=== PATIENT | male | born 1950 | race Caucasian/White ===

== ENCOUNTER → 2016-07-15 | Outpatient (CLI) | payer MEDICARE, BC, OTHER ==
[~2016-07-15] MED LIST: ALPR0.5T3 PO; ASPI1TAB PO; CEFD1CAP8 PO; CRES20TA PO; DILT180C53 PO; FLOM5CAP PO; FURO40TA2 PO; GLYB5TAB5 PO; HYDR12.55 PO; INSULANT SC; JANU100T PO; LASI40TA PO; LISI5TAB PO; METF1000 PO; NASA0.057; NITR4TASL SL; OMEP20CA3 PO; OMEP20TA PO; PROZ20CA11 PO; TAMS0.4C PO; TELM1TAB12 PO; TEST100I IM; VITA-130 PO; VITMTA PO; ZOCO20TA PO; [UNRECOGNIZED DRUG - CODE] IM
[2016-07-15 08:32] LABS: MEAN CORPUSCULAR HEMOGLOBIN 32.1 pg (27.0-33.0); MEAN CORPUSCULAR HGB CONC 33.7 g/dl (32.0-36.5); MEAN CORPUSCULAR VOLUME 95.4 fl (80.0-96.0); RED CELL DISTRIBUTION WIDTH 12.3 % (11.5-14.5); WHITE BLOOD COUNT 6.5 K/mm3 (4.0-10.0)
[2016-07-15 09:01] LABS: ALBUMIN 3.5 GM/DL (3.2-5.2); ALBUMIN/GLOBULIN RATIO 1.09 (1.00-1.93); BILIRUBIN,DIRECT 0.1 MG/DL (0.0-0.2); BILIRUBIN,TOTAL 0.3 MG/DL (0.2-1.0); TOTAL PROTEIN 6.7 GM/DL (6.4-8.2)
== END ==
LOC: M LAB 07:50
PROVIDERS: ATTEND Physician Assistant
DX: E78.00 Pure hypercholesterolemia, unspecified (principal); D64.9 Anemia, unspecified

== ENCOUNTER 2016-07-30 13:31 | Inpatient (IN) | payer MEDICARE, BC, OTHER ==
[~2016-07-30] VITALS: Ht 172.7 cm; Wt 97.6 kg
[2016-07-30 14:52] LABS: MEAN CORPUSCULAR HEMOGLOBIN 31.9 pg (27.0-33.0); MEAN CORPUSCULAR HGB CONC 33.3 g/dl (32.0-36.5); MEAN CORPUSCULAR VOLUME 95.9 fl (80.0-96.0); RED CELL DISTRIBUTION WIDTH 12.7 % (11.5-14.5); WHITE BLOOD COUNT 3.3 K/mm3 (4.0-10.0)
[2016-07-30 15:26] LABS: ALBUMIN 3.5 GM/DL (3.2-5.2); ALKALINE PHOSPHATASE 85 U/L (45-117); ALT/SGPT 48 U/L (12-78); ANION GAP 8 MEQ/L (8-16); AST/SGOT 47 U/L (15-37); BILIRUBIN,DIRECT 0.1 MG/DL (0.0-0.2); BILIRUBIN,TOTAL 0.4 MG/DL (0.2-1.0); BLOOD UREA NITROGEN 31 MG/DL (7-18); CALCIUM LEVEL 8.8 MG/DL (8.8-10.2); CARBON DIOXIDE LEVEL 28 MEQ/L (21-32); CHLORIDE LEVEL 104 MEQ/L (98-107); CREATININE FOR GFR 1.28 MG/DL (0.70-1.30); GLOMERULAR FILTRATION RATE 59.9 (>49); GLUCOSE, FASTING 127 MG/DL (80-110); POTASSIUM SERUM 4.8 MEQ/L (3.5-5.1); SODIUM LEVEL 140 MEQ/L (136-145)
--- NOTE | 2016-07-30 15:26 | REP ---
CT HEAD WITHOUT CONTRAST: HISTORY: Altered mental status. COMPARISON: 10/15/2014 Areas of decreased attenuation are present in the periventricular white matter. This represents small vessel ischemic disease. There is no intraparenchymal hemorrhage, mass or midline shift. The ventricular system and cortical sulci are dilated consistent with mild volume loss. There is no extracerebral collection. The visualized sinuses are clear. IMPRESSION: 1. Small vessel ischemic disease. 2. Mild volume loss. Signed by Hank Demarco MD 07/30/2016 03:28 P
[2016-07-30 16:55] LABS: AMPHETAMINES LEVEL URINE NEGATIVE (NEGATIVE); BENZODIAZEPINES URINE NEGATIVE (NEGATIVE); COCAINE METABOLITE URINE NEGATIVE (NEGATIVE); CONTROL LINE INT CTR LINE PRESENT; METHADONE URINE NEGATIVE (NEGATIVE); OPIATES URINE NEGATIVE (NEGATIVE); TRICYCLIC ANTIDEPRESS URINE NEGATIVE (NEGATIVE)
[2016-07-30] MEDS ORDERED: ALPR0.5T3 PO (17:57)
--- NOTE | 2016-07-30 18:16 | EDDOCDS ---
Nurse's Notes [facility] Name: Hank Vilchis Age: 66 yrs Sex: Male : 1950 Arrival Date: 07/30/2016 Time: 13:[address] MD: Tena Hamilton Diagnosis: Major depressive disorder, recurrent, moderate Presentation: 07/30 13:40 Presenting complaint: states: Increase in dizziness, anxiety, ''antisocial'', dwg symptoms since September of 2015. Denies feeling suicidal. Adult Sepsis Screening: The patient does not have new or worsening altered mentation. Patient's respiratory rate is less than 22. Systolic blood pressure is greater than 100. Patient has a qSOFA score of 0- Negative Sepsis Screen. Suicide/Homicide risk assessment- the patient denies having any suicidal and/or homicidal ideations and does not present with any other emotional, behavioral or mental health complaints. Status: Patient is not a health service coordinator or dependent. Transition of care: patient was not received from another setting of care. 13:40 Acuity: HILDA Level 3 dw 13:40 Method Of Arrival: Wheelchair dw 13:52 Presenting complaint: states: Increase in anxiety, sleeping more, more angry. [facility] Triage Assessment: 13:49 General: Appears in no apparent distress, Behavior is cooperative. Pain: Denies pain. [facility] Historical: - Allergies: no known allergies; - Home Meds: 1. Lantus 100 unit/mL Sub-Q crtg 26 unit daily (Last dose: 07/30/2016 07:00) 2. Flomax 0.4 mg Oral cp24 1 cap once daily (Last dose: 07/29/2016 20:00) 3. Crestor 20 mg Oral tab 1 tab once daily (Last dose: 07/29/2016 20:00) 4. Januvia 100 mg oral tab 1 tab once daily (Last dose: 07/30/2016 08:00) 5. furosemide 40 mg Oral tab 1 tab once daily (Last dose: 07/30/2016 08:00) 6. Prozac 20 mg Oral cap 1 cap once daily (Last dose: 07/30/2016 08:00) 7. Xanax 0.25 mg oral tab 1 tab bid (Last dose: 07/30/2016 08:00) 8. omeprazole 20 mg Oral cpDR 1 cap once daily (Last dose: 07/30/2016 08:00) 9. multivitamin Oral cap 1 tab daily (Last dose: 07/30/2016 08:00) 10. Vitamin C 500 mg Oral chew daily (Last dose: 07/30/2016 08:00) 11. 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 No barriers to communication noted, The patient speaks fluent Telugu. - Family history: Not pertinent. - : The pt / caregiver states he / she is not on anticoagulants. Home medication list is obtained from family members. - Exposure Risk Screening:: None identified. Screenin:28 Screening information is obtained from the patient. Fall risk: No risks identified. kr3 Assistance ADL's: requires no assistance with activities of daily living. Abuse/DV Screen: The patient / caregiver reports he/she is: not in a situation that causes fear, pain or injury. Nutritional screening: On diabetic diet. home support is adequate. 18:01 Advance Directives: There is no active DNR order. ld5 Assessment: 14:00 General: Direct to room 10, report given to Jasmin Fontaine RN.. [facility] 14:07 Reassessment: Patient appears in no apparent distress at this time. Patient denies pain kr3 at this time. Reassessment: reports feeling frustrated because he is not getting better. Reports being on Prozac for over 2 1/2 months which hasn't improved his depression. Neurological: Reports dizziness this AM but none at this time. . Respiratory: Respiratory effort is even, unlabored. Derm: Skin is normal. 14:44 Reassessment: orthostatic vital signs obtained with no reports of dizziness or feeling kr3 light headed. 15:30 Reassessment: Patient appears in no apparent distress at this time. Patient denies pain kr3 at this time. family at bedside. 16:28 Reassessment: patient talking with ADAMA barrow, family in room. kr3 17:32 General: Pt sitting up in bed. No apparent distress. Family members in visiting with ld5 pt. Aware of plan for admission to [facility]. Pt denies any needs at this time. Will continue to monitor. 18:00 General: Appears in no apparent distress, Behavior is cooperative, pleasant. Pain: ld5 Quality of pain is described as chronic, pt denies any acute pain. Respiratory: Airway is patent Respiratory effort is even, unlabored. Mental Health Eval: 16:38 Mental health consult is initiated at 15:30. Status: The patient is not a health service coordinator or dependent. [facility] Behavioral Health: The patient is not an established patient of [facility] Behavioral Health. Referral Information: Evaluation referral is generated by a relative; spouse, The patient was referred for evaluation because Pt presented to ED with symptoms of "shaky", "dizzy", and having a panic attack. and Adult children at bedside. Family reported increased anxiety, depressed for the last year. Pt denies SI/HI but reported feeling useless and has no purpose. . 17:00 Referral Information: The patient was referred for evaluation because According to rb Family, Pt worries about EVERYTHING, focuses on what he can't do then gets angry. "The fear of everything has overtaken him" per family. Family reported Pt used to be very social, [id number], people called him "happy daniele", and he talked all the time. 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 Pt will sleep for 16 hours straight according to his , but wake up still tired. Pt stated is aware of his declining in health, is frustrated he cannot do the things he used to do, including the ease of putting on his socks. Pt becomes very anxious especially in a car or when it snows. . Subjective: The patients chief complaint is Depressed, ??SI, panic attacks, constant anxiety. Delusions are denied. Patient's mood is anxious, dysphoric, hopeless, irritable, Hallucinations are denied. Mental Health history: no relevant mental health problems or treatments. Mental Health Admissions: None. Current Outpatient Mental Health Services: None. Current living environment is The patient currently lives with his / her spouse, ,. The patient is . Patient presents to Emergency Department with the following symptoms within the past 2 weeks: agitation, antisocial behavior, anxiety, decreased appetite, depressed mood, feelings of helplessness/hopelessness, panic attacks, sleep disturbance - excessive sleeping, suicidal ideation with no plan, weight loss of 20 pounds. Substance abuse: Pt denies. Mental status exam: Patients appearance is appropriate, Patient's behavior is cooperative, Speech is slow. Affect is labile. Mood is anxious. dysphoric. irritable. Hallucinations are denied. Appetite is erratic Memory is good. Energy level is lethargic. Content of thought is depressive. , Thought process is characterized by flight of ideas. Fear of everything has over taken him according to Family, constantly worries about everything. Cognitive level is oriented to person, place, time and situation Patient's insight is fair. Judgement is fair. Rapport with interviewer is good. Suicidal Ideation is denied. Homicidal ideation is not present. Disposition: Medically cleared for disposition by Nichole Giles MD Psychiatric Consult is performed by phone with Dr Karlo Blanco MD. [facility] Admission Criteria: The patient is experiencing suicidal ideation. The patient displays symptoms of severe psychiatric disorder resulting in disordered behavior and significant interference with his / her ability to maintain self care. Severe Anxiety. Psychomotor Retardation. The patient requires continuous observation and/or control to protect self, others or property. The patient requires administration and monitoring of psychoactive medications by skilled medical providers due to the side effects of the psychoactive medications or significant dosage adjustments. Legal Status: Patient's legal status will be Emergency admission: . [place] Safe Act: [place] Safe Act is applicable to this patient. The patient poses a risk to self or other and the Nursing Health Practice Manager has been notified. He/She will enter the patient's data. 17:26 DSM-V Differential Diagnosis: Unspecified Depressive Disorder (F32.9). Narrative: Pt rb uses a walker and wears his slip on shoes for stability. Family is very supportive. Pt states preferred pharmacy is: [facility], [facility] on [address], and [facility] on [address] Awaiting: transfer to [facility]. Vital Signs: 13:34 BP 152 / 59; Pulse 95; Resp 20; Temp 98.8(O); Pulse Ox 96% on R/A; Weight 96.16 kg (R); elp Height 5 ft. 8 in. (172.72 cm) (R); Pain 0/10; 14:43 BP 108 / 54 Supine; Pulse 94; kr3 14:43 BP 112 / 58 Sitting; Pulse 92; kr3 14:43 BP 115 / 53 Standing; Pulse 90; kr3 17:04 BP 145 / 65; Pulse 88; Resp 16; Pulse Ox 96% on R/A; kr3 18:00 BP 116 / 63; Pulse 82; Resp 16; Temp 96.9(O); Pulse Ox 95% on R/A; ld5 13:34 Body Mass Index 32.23 (96.16 kg, 172.72 cm) elp Vitals: 13:34 Log In Time: July 30, 2016 at 13:32. elp 13:35 RN notified that patient meets Red Flag criteria. elp ED Course: 13:33 Patient visited by Janice Forde PCA. elp 13:33 Tena Hamilton is Private Physician. elp 13:33 Patient moved to Waiting elp 13:35 Patient visited by Janice Forde PCA. elp 13:41 Triage Initiated dwg 13:53 Patient moved to 10 dwg 14:09 The patient / caregiver is instructed regarding the plan of care and ED course. kr3 Accompanied by Family Member, Patient has correct armband on for positive identification. Placed in gown. Bed in low position. Side rails up X 1. 14:14 Nichole Giles MD is Attending Physician. sd1 14:16 Patient visited by Nichole Giles MD. sd1 14:37 EKG done. (by ED staff). Reviewed by Nichole Giles MD. ct3 14:38 Patient visited by Marium Marino PCA. ct3 14:43 Troponin Sent. kr3 14:43 CIP Sent. kr3 14:43 Acetaminophen Level Sent. kr3 14:43 Basic Metabolic Profile Sent. kr3 14:43 Complete Blood Count Sent. kr3 14:43 Ethyl Alcohol (ethanol) Sent. kr3 14:43 Liver Profile Sent. kr3 14:43 Salicylate Level Sent. kr3 14:44 Thyroid Stimulating Hormone Sent. kr3 15:30 CT Head Without Contrast Returned. EDMS 15:42 [facility] Payment Agreement was scanned into Split and attached to record. gjb 16:22 Patient visited by Maruim Marino PCA. ct3 16:23 CT Head Without Contrast Returned. EDMS 16:27 Drug Eval Toxicology ED Only Sent. kr3 16:28 No IV's were initiated during this patient's visit. No procedures done that require kr3 assistance. 17:00 Patient moved to [facility] kr3 17:07 Karlo Blanco MD is Hospitalizing Provider. sd1 17:34 Patient visited by Radha Hinojosa RN. ld5 17:38 Patient visited by Radha Hinojosa RN. ld5 17:50 [facility] Legal paperwork was scanned into Split and attached to record. jl 17:58 Patient visited by Raffy Bradshaw. dpm 18:02 Patient visited by Radha Hinojosa RN. ld5 18:15 Patient visited by Radha Hinojosa RN. ld5 Attachments: 17:50 [facility] Legal paperwork jl Order Results: Lab Order: Acetaminophen Level; SPEC'M 07/30/16 14:38 Test: ACETAMINOPHEN LEVEL; Value: < 2.0; Range: 10.0-30.0; Abnormal: Below low normal; Units: UG/ML; Status: F Lab Order: Basic Metabolic Profile; SPEC'M 07/30/16 14:38 Test: GLUCOSE, FASTING; Value: 127; Range: 80-110; Abnormal: Above high normal; Units: MG/DL; Status: F Test: BLOOD UREA NITROGEN; Value: 31; Range: 7-18; Abnormal: Above high normal; Units: MG/DL; Status: F Test: CREATININE FOR GFR; Value: 1.28; Range: 0.70-1.30; Units: MG/DL; Status: F Test: GLOMERULAR FILTRATION RATE; Value: 59.9; Range: >49; Status: F Test: SODIUM LEVEL; Value: 140; Range: 136-145; Units: MEQ/L; Status: F Test: POTASSIUM SERUM; Value: 4.8; Range: 3.5-5.1; Units: MEQ/L; Status: F Test: CHLORIDE LEVEL; Value: 104; Range: 98-107; Units: MEQ/L; Status: F Test: CARBON DIOXIDE LEVEL; Value: 28; Range: 21-32; Units: MEQ/L; Status: F Test: ANION GAP; Value: 8; Range: 8-16; Units: MEQ/L; Status: F Test: CALCIUM LEVEL; Value: 8.8; Range: 8.8-10.2; Units: MG/DL; Status: F Test Note: ; Units are mL/min/1.73 m2 Chronic Kidney Disease Staging per NKF: Stage I & II GFR >=60 Normal to Mildly Decreased Stage III GFR 30-59 Moderately Decreased Stage IV GFR 15-29 Severely Decreased Stage V GFR <15 Very Little GFR Left ESRD GFR <15 on MACH[employer] Lab Order: Complete Blood Count; SPEC'M 07/30/16 14:38 Test: WHITE BLOOD COUNT; Value: 3.3; Range: 4.0-10.0; Abnormal: Below low normal; Units: K/mm3; Status: F Test: RED BLOOD COUNT; Value: 3.41; Range: 4.30-6.10; Abnormal: Below low normal; Units: M/mm3; Status: F Test: HEMOGLOBIN; Value: 10.9; Range: 14.0-18.0; Abnormal: Below low normal; Units: g/dl; Status: F Test: HEMATOCRIT; Value: 32.7; Range: 42.0-52.0; Abnormal: Below low normal; Units: %; Status: F Test: MEAN CORPUSCULAR VOLUME; Value: 95.9; Range: 80.0-96.0; Units: fl; Status: F Test: MEAN CORPUSCULAR HEMOGLOBIN; Value: 31.9; Range: 27.0-33.0; Units: pg; Status: F Test: MEAN CORPUSCULAR HGB CONC; Value: 33.3; Range: 32.0-36.5; Units: g/dl; Status: F Test: RED CELL DISTRIBUTION WIDTH; Value: 12.7; Range: 11.5-14.5; Units: %; Status: F Test: PLATELET COUNT, AUTOMATED; Value: 127; Range: 150-450; Abnormal: Below low normal; Units: k/mm3; Status: F Lab Order: Drug Eval Toxicology ED Only; SPEC'M 07/30/16 16:26 Test: AMPHETAMINES LEVEL URINE; Value: NEGATIVE; Range: NEGATIVE; Status: F Test: BARBITURATES URINE; Value: NEGATIVE; Range: NEGATIVE; Status: F Test: BENZODIAZEPINES URINE; Value: NEGATIVE; Range: NEGATIVE; Status: F Test: CANNABINOIDS URINE; Value: NEGATIVE; Range: NEGATIVE; Status: F Test: COCAINE METABOLITE URINE; Value: NEGATIVE; Range: NEGATIVE; Status: F Test: METHADONE URINE; Value: NEGATIVE; Range: NEGATIVE; Status: F Test: OPIATES URINE; Value: NEGATIVE; Range: NEGATIVE; Status: F Test: TRICYCLIC ANTIDEPRESS URINE; Value: NEGATIVE; Range: NEGATIVE; Status: F Test Note: ; ALL PRESUMPTIVE POSITIVE FINDINGS ARE UNCONFIRMED NORMAL VALUES THRESHOLD IN NG/ML AMPHETAMINES 1000 METHAMPHETAMINES 1000 BARBITURATES 300 BENZODIAZEPINES 300 CANNABINOIDS (THC) 50 COCAINE METABOLITE 300 METHADONE 300 OPIATES 300 PHENCYCLIDINE 25 TRICYCLIC ANTIDEPRESSANTS 1000 RESULTS ARE FOR MEDICAL PURPOSES ONLY. ALL URINE SPECIMENS WILL BE SAVED FOR 3 DAYS. IF CONFIRMATION OF A PRESUMPTIVE POSTIVE SCREEN RESULT IS DESIRED, CALL CHEMISTRY ([phone]) AND REQUEST URINE TO BE SENT TO REFERENCE LAB. FOR A LIST OF CLOSELY RELATED COMPOUNDS PLEASE CALL THE LAB. Lab Order: Ethyl Alcohol (ethanol); SPEC'M 07/30/16 14:38 Test: ETHYL ALCOHOL (ETHANOL); Value: 0.004; Range: 0.000-0.010; Units: %; Status: F Lab Order: Liver Profile; SPEC'M 07/30/16 14:38 Test: AST/SGOT; Value: 47; Range: 15-37; Abnormal: Above high normal; Units: U/L; Status: F Test: ALT/SGPT; Value: 48; Range: 12-78; Units: U/L; Status: F Test: ALKALINE PHOSPHATASE; Value: 85; Range: 45-117; Units: U/L; Status: F Test: BILIRUBIN,TOTAL; Value: 0.4; Range: 0.2-1.0; Units: MG/DL; Status: F Test: BILIRUBIN,DIRECT; Value: 0.1; Range: 0.0-0.2; Units: MG/DL; Status: F Test: TOTAL PROTEIN; Value: 7.0; Range: 6.4-8.2; Units: GM/DL; Status: F Test: ALBUMIN; Value: 3.5; Range: 3.2-5.2; Units: GM/DL; Status: F Test: ALBUMIN/GLOBULIN RATIO; Value: 1.00; Range: 1.00-1.93; Status: F Lab Order: Salicylate Level; SPEC'07/30/16 14:38 Test: SALICYLATE LEVEL; Value: < 1.7; Range: 5.0-30.0; Abnormal: Below low normal; Units: MG/DL; Status: F Lab Order: Thyroid Stimulating Hormone; SPEC07/30/16 14:38 Test: THYROID STIMULATING HORMONE; Value: 1.630; Range: 0.358-3.740; Units: uIU/ML; Status: F Lab Order: CIP; SPEC07/30/16 14:38 Test: CPK CREATINE PHOSPHOKINASE; Value: 311; Range: 39-308; Abnormal: Above high normal; Units: U/L; Status: F Test: CK-MB VALUE MASS; Value: 11.3; Range: 0.0-3.6; Abnormal: Above high normal; Units: NG/ML; Status: F Test: MB/CK RELATIVE INDEX; Value: 3.63; Range: < OR =4; Status: F Test Note: ; DIAGNOSIS CRITERIA MMB ng/ml Relative Index (RI) NON-AMI < or = 5 N/A HALL ZONE > 5 < or = 4 AMI > 5 > 4 Lab Order: Troponin; 07/30/16 14:38 Test: TROPONIN I; Value: < 0.02; Range: < 0.10; Units: NG/ML; Status: F Test Note: ; Troponin I Reference Interval for [employer] LOCI: 99th Percentile= 0.00-0.045 ng/ml Risk Stratification: <= 0.10 ng/ml Decreased Risk for Adverse Clinical Events. 0.10-1.50 ng/ml Increased Risk for Adverse Clinical Events. Evaluation of additional criterion and/or repeat testing in 2-6 hours is suggested to rule out myocardial damage. >= 1.50 ng/ml Indicative of Myocardial Injury. Radiology Order: CT Head Without Contrast Test: CT Head Without Contrast REASON FOR EXAMINATION: altered mental status; CT HEAD WITHOUT CONTRAST:; ; HISTORY: Altered mental status.; ; COMPARISON: 10/15/2014; ; Areas of decreased attenuation are present in the periventricular white matter.; This represents small vessel ischemic disease. There is no intraparenchymal; hemorrhage, mass or midline shift. The ventricular system and cortical sulci are; dilated consistent with mild volume loss. There is no extracerebral collection.; The visualized sinuses are clear.; ; IMPRESSION:; ; 1. Small vessel ischemic disease.; ; 2. Mild volume loss.; ; ; Signed by; Hank Demarco MD 07/30/2016 03:28 P; Outcome: 16:29 CT Study completed. kr3 17:07 Decision to Hospitalize by Provider. sd1 18:01 Discharge Assessment: Patient awake, alert and oriented x 3. No cognitive and/or ld5 functional deficits noted. Patient verbalized understanding of disposition instructions. patient administered narcotics - no. The following High Risk Discharge criteria are identified: Yes, [facility] admission. Admitted to Psych accompanied by tech, family with patient, via wheelchair, with chart. Condition: stable. Property inventory done, :Personal belongings accompany Pt. 18:15 Patient left the ED. ld5 Signatures: Dispatcher [employer] EDMS Nichole Giles MD MD sd1 Bautista Concepcion, RN RN dwg Angie Westfall, PSA PSA rb Mark Sanchez, PSA PSA Kiah Ybarra,RN RN kr3 Radha Hinojosa RN RN ld5 Marium Marino, [address] MAGISTRATE [address] MAGISTRATE ct3 Raffy Bradshaw dpJanice Melendez, [address] MAGIST[address] MAGISTRATE claudiap Nataly Roman Corrections: (The following items were deleted from the chart) 17:25 13:49 PMHx: syringoelia; nicky ld5 MTDD
--- NOTE | 2016-07-30 18:16 | EDDOCDS ---
Physician Documentation [facility] Name: Hank Vilchis Age: 66 yrs Sex: Male : 1950 Arrival Date: 07/30/2016 Time: 13:[address] MD: Tena Hamilton Disposition: 07/30/16 17:07 Hospitalization ordered by Karlo Blanco for Inpatient Admission. Preliminary diagnosis is Major depressive disorder, recurrent, moderate. - Bed requested for Admit. - Status is Inpatient Admission. ld5 - Condition is Stable. - Problem is an ongoing problem. - Symptoms are unchanged. Historical: - Allergies: no known allergies; - Home Meds: 1. Lantus 100 unit/mL Sub-Q crtg 26 unit daily (Last dose: 07/30/2016 07:00) 2. Flomax 0.4 mg Oral cp24 1 cap once daily (Last dose: 07/29/2016 20:00) 3. Crestor 20 mg Oral tab 1 tab once daily (Last dose: 07/29/2016 20:00) 4. Januvia 100 mg oral tab 1 tab once daily (Last dose: 07/30/2016 08:00) 5. furosemide 40 mg Oral tab 1 tab once daily (Last dose: 07/30/2016 08:00) 6. Prozac 20 mg Oral cap 1 cap once daily (Last dose: 07/30/2016 08:00) 7. Xanax 0.25 mg oral tab 1 tab bid (Last dose: 07/30/2016 08:00) 8. omeprazole 20 mg Oral cpDR 1 cap once daily (Last dose: 07/30/2016 08:00) 9. multivitamin Oral cap 1 tab daily (Last dose: 07/30/2016 08:00) 10. Vitamin C 500 mg Oral chew daily (Last dose: 07/30/2016 08:00) 11. 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 No barriers to communication noted, The patient speaks fluent Guinean. - Family history: Not pertinent. - : The pt / caregiver states he / she is not on anticoagulants. Home medication list is obtained from family members. - Exposure Risk Screening:: None identified. Vital Signs: 07/30 13:34 BP 152 / 59; Pulse 95; Resp 20; Temp 98.8(O); Pulse Ox 96% on R/A; Weight 96.16 kg / elp 212 lbs (R); Height 5 ft. 8 in. (172.72 cm) (R); Pain 0/10; 14:43 BP 108 / 54 Supine; Pulse 94; kr3 14:43 BP 112 / 58 Sitting; Pulse 92; kr3 14:43 BP 115 / 53 Standing; Pulse 90; kr3 17:04 BP 145 / 65; Pulse 88; Resp 16; Pulse Ox 96% on R/A; kr3 18:00 BP 116 / 63; Pulse 82; Resp 16; Temp 96.9(O); Pulse Ox 95% on R/A; ld5 13:34 Body Mass Index 32.23 (96.16 kg, 172.72 cm) elp MDM: 14:29 Consult PFS/PSA/Religious Education Coordinator ordered. sd1 14:29 Consult PFS/PSA/Religious Education Coordinator: Patient's case requires discussion with on-call sd1 Psychiatrist ordered. 14:29 PSA/PFS to call Nursing Import/Export Freight Forwarder, to enter patient data on [place] Safe [place] if patient sd1 involuntarily admitted or transferred for SI or HI ordered. 14:29 Confirm accurate psychiatric medication list and times of last dosage ordered. sd1 14:29 Detain Pt Until Medically/PFS Cleared ordered. sd1 14:29 Orthostatic VS ordered. sd1 14:30 Acetaminophen Level Ordered. EDMS 14:30 Basic Metabolic Profile Ordered. EDMS 14:30 Complete Blood Count Ordered. EDMS 14:30 Drug Eval Toxicology ED Only Ordered. EDMS 14:30 Ethyl Alcohol (ethanol) Ordered. EDMS 14:30 Liver Profile Ordered. EDMS 14:30 Salicylate Level Ordered. EDMS 14:30 Thyroid Stimulating Hormone Ordered. EDMS 14:30 CIP Ordered. EDMS 14:30 Troponin Ordered. EDMS 14:30 ECG WITH READING ER PHYS+CARDIAG ordered. EDMS 14:30 CT Head Without Contrast Ordered. EDMS 15:23 Consult: Case Preparer And Liner ordered. sd1 15:38 Acetaminophen Level Reviewed. sd1 15:38 Basic Metabolic Profile Reviewed. sd1 15:38 Complete Blood Count Reviewed. sd1 15:38 Liver Profile Reviewed. sd1 15:38 Salicylate Level Reviewed. sd1 15:38 CIP Reviewed. sd1 15:38 Ethyl Alcohol (ethanol) Reviewed. sd1 15:38 Thyroid Stimulating Hormone Reviewed. sd1 15:38 Troponin Reviewed. sd1 15:38 CT Head Without Contrast Reviewed. sd1 15:41 Financial registration complete. gjb 15:42 [facility] Payment Agreement was scanned into [employer] and attached to record. gjb 16:37 Consult: Case Preparer And Liner complete. rb 16:37 Consult PFS/PSA/Religious Education Coordinator complete. rb 16:37 Consult PFS/PSA/Religious Education Coordinator: Patient's case requires discussion with on-call rb Psychiatrist complete. 16:59 Drug Eval Toxicology ED Only Reviewed. sd1 16:59 CT Head Without Contrast Reviewed. sd1 17:05 REGULAR DIET PLASTIC AMARAL+DIET ordered. EDMS 17:38 PSA/PFS to call Nursing Import/Export Freight Forwarder, to enter patient data on [place] if patient ld5 involuntarily admitted or transferred for SI or HI complete. 17:[address] [facility]: ordered. EDMS 17:50 [facility] Legal paperwork was scanned into [employer] and attached to record. jl Signatures: Dispatcher [employer] EDCO Nichole Giles MD MD sd1 Bautista Concepcion, RN RN michealg Angie Westfall, PSA PSA Mark Mauricio, PSA PSA Kiah Ybarra,RN RN sami3 Radha HinojosaRN RN ld5 Nataly Roman The chart was reviewed and I authenticate all verbal orders and agree with the evaluation and treatment provided.Corrections: (The following items were deleted from the chart) 17:25 13:49 PMHx: syringoelia; dwg ld5 Attachments: 15:42 [facility]
[2016-07-30 18:19] VITALS: BP 111/56
[2016-07-30] MEDS ORDERED: PROZ20CA11 PO (19:18)
[2016-07-30] MEDS ORDERED: ALPRAZolam 0.5 MG TAB PO SCH (21:00)
[2016-07-30] MEDS: HumaLOG INSULIN (NovoLOG) PER UNIT SC SCH (21:00)
[2016-07-30] MEDS ORDERED: MAALOX 30 ML SUSP *UDC PO PRN (22:00)
[2016-07-30] MEDS ORDERED: ACETAMINOPHEN TAB 650MG DOSE (2X325MG) PO PRN (22:00)
[2016-07-30] MEDS ORDERED: NITROGLYCERIN 0.4 MG SUBL TABLET SL PRN (22:00)
[2016-07-30] MEDS ORDERED: MOM 30ML SUSPENSION UDC PO PRN (22:00)
[2016-07-30] MEDS ORDERED: traZODone 50 MG TAB PO PRN (22:00)
[2016-07-30] MEDS ORDERED: GLUCAGON FOR INJ 1 MG VIAL (J1610) SC PRN (23:15)
[2016-07-30] MEDS ORDERED: GLUCOSE 4 GM CHEW TABLET PO PRN (23:15)
[2016-07-30] MEDS: ROSUVASTATIN 10 MG TAB (CRESTOR) PO SCH (23:30)
[2016-07-30] MEDS: ALPRAZolam 0.25 MG TAB PO SCH (23:30)
[2016-07-30] MEDS: TAMSULOSIN 0.4 MG CAP PO SCH (23:30)
[2016-07-31 06:46] VITALS: BP 140/69
[2016-07-31] MEDS: HumaLOG INSULIN (NovoLOG) PER UNIT SC SCH ×4 (07:05→20:59)
--- NOTE | 2016-07-31 07:26 | ECGEPIP ---
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
[2016-07-31] MEDS ORDERED: ALPRAZolam 0.25 MG TAB PO SCH ×2 (09:00→21:00)
[2016-07-31] MEDS ORDERED: FLUoxetine 20 MG CAP PO SCH (09:00)
[2016-07-31] MEDS: ALPRAZolam 0.25 MG TAB PO SCH ×2 (09:55→21:00)
[2016-07-31] MEDS: LEVEMIR (INSULIN DETEMIR) 1 UNITS/0.01ML SC SCH (09:55)
[2016-07-31] MEDS: SITagliptin 50 MG TAB (JANUVIA) PO SCH (09:55)
[2016-07-31] MEDS: OMEPRAZOLE 20 MG CAP PO SCH (09:55)
[2016-07-31] MEDS: ASCORBIC ACID 500 MG TAB PO SCH (09:56)
[2016-07-31] MEDS: MULTIVITAMINS/MINERALS THERAP 1 TAB PO SCH (09:56)
[2016-07-31] MEDS: FUROSEMIDE 40 MG TAB PO SCH (09:56)
[2016-07-31] MEDS: ASPIRIN 81 MG ENTERIC TAB PO SCH (09:56)
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
--- NOTE | 2016-07-31 11:17 | HPEPDOC ---
Medical History and Physical Date of Admission Jul 30, 2016 at 18:14 History and Physical PCP: Dr Tate Hamilton ATTENDING: Dr. Ruel Prabhakar HPI: 66yoM admitted to [facility] for unspecified depressive disorder, being medically examined today. No acute medical complaints today, no concerns. Denies any fevers, chills, weakness, fatigue, ZELAYA, CP, SOB, cough, palpitations, abdominal pain, N/V/D or changes in bowel or bladder habits. PMHx: IDDM Syringomyelia CHF Hyperlipidemia Hypertension LIANNA/CPAP Anxiety CAD Unsteady gait/wheeled Walker. GERD BPH PSHX: Spinal surgery with shunt placement Cardiac stent 2013 SOCHX: Resides in: [place] Marital Status: Kids: 2 Employment: Retired from [employer] Tobacco use: Quit 1985 ETOH: One to 2 coors light per day Illicit Drugs: Denies IV Drug Use: Denies Tattoos done unprofessionally: Denies FAMHX: Mother: , CHF Father: , [place] Siblings: Brother at 49 [place], diabetes Children: Alive, well Unexpected deaths due to medical reasons: None. ROS: As noted in HPI, otherwise 11pt ROS of systems reviewed and unremarkable. PE: GEN: 66yoM, appears stated age. Well-nourished, well developed. No acute distress. Alert and oriented x 3. Pleasant, interactive. HEENT: Normocephalic, atraumatic. Pupils are equal, round, and reactive to light. Extraocular movements are intact. No nystagmus appreciated. Sclera are nonicteric. Conjunctiva without injection. Nose midline. Nasal turbinates without bogginess. EACs both patent BL. TMs both visualized and omalley with good cone of light, no bulging or erythema. No facial asymmetry. Moist mucous membranes. Dentition fair. Pharynx pink and moist, no cobblestoning. Neck supple , trachea midline. No lymphadenopathy or thyromegaly appreciated. CHEST: Regular rate and rhythm, +S1, +S2 LUNGS: Clear to auscultation bilaterally. No wheezes, rales, or rhonchi. Breathing appears symmetric and easy. Patient is speaking in full sentences. No accessory muscle use. ABD: Round, soft, non-tender, non-distended. +Bowel sounds throughout. No rebound or guarding. No costovertebral angle tenderness. EXT: Pulses 2+ bilaterally dorsalis pedis and radial. No lower extremity edema appreciated. SKIN: [place], dry, warm. Capillary refill <2sec. No rashes. NEURO: Alert and oriented x 3. Cranial nerves III-XII are intact. No focal deficits appreciated. Chronic unsteady gait, he is using a wheeled walker. EK07/30/16 SINUS RHYTHM MODERATE INTRAVENTRICULAR CONDUCTION DELAY NSTTW ABNORMALITY A&P: 66yoM admitted to [facility] for unspecified depressive disorder 1. Psych. Plan per Psychiatry. EKG on file. 2. IDDM. Continue Levemir 26 units daily, Januvia 100 mg daily, sliding scale insulin. Fingerstick blood sugar before meals at bedtime. 3. Borderline EKG. No cardiac signs or symptoms appreciated on exam, follow with PCP. 4. Syringomyelia. Follows with [facility] as outpatient. 5. CHF. Continue Lasix 40 mg daily. 6. Hyperlipidemia. Continue Crestor 20 mg daily. 7. LIANNA/CPAP. 8. CAD. Continue aspirin 81 mg daily, sublingual nitroglycerin if needed. Continue statin. 9. Unsteady gait. Continue wheeled walker as needed. Fall precautions. 10. GERD. Continue Prilosec 20 mg daily. 11. BPH. Continue Flomax 0.4 mg daily. 12. Follow up with PCP on discharge. 13. Staff member present throughout exam, safety aid Robert. Vital Signs Vital Signs Label Value Date Time Patient Temperature 98.7 degrees F 07/31/16 0646 Temperature Source Tympanic 07/31/16 0646 Pulse 87 07/31/16 0646 Respiratory Rate 16 bpm 07/31/16 0646 Blood Pressure Assessment 140/69 (92) 07/31/16 0646 Laboratory Data Labs 24H Laboratory Tests 2 07/30/16 14:38: Acetaminophen Level < 2.0L, Aspartate Amino Transf (AST/SGOT) 47H, Alanine Aminotransferase (ALT/SGPT) 48, Alkaline Phosphatase 85, Total Bilirubin 0.4, Direct Bilirubin 0.1, Albumin 3.5, Albumin/Globulin Ratio 1.00, Anion Gap 8, Calcium Level 8.8, Creatine Kinase MB 11.3H, Creatine Kinase MB Relative Index 3.63, Ethyl Alcohol Level 0.004, Glomerular Filtration Rate 59.9, Salicylates Level < 1.7L, Thyroid Stimulating Hormone (TSH) 1.630, Total Creatine Kinase 311H, Total Protein 7.0, Troponin I < 0.02 07/30/16 16:26: Urine Amphetamine Level NEGATIVE, Urine Benzodiazepines Screen NEGATIVE, Urine Cannabinoids NEGATIVE, Urine Cocaine Metabolite NEGATIVE, Urine Opiates Screen NEGATIVE, Urine Barbiturates, Qualitative NEGATIVE, Urine Methadone Screen NEGATIVE, Urine Tricyclic Antidepressants NEGATIVE 07/30/16 23:34: Bedside Glucose (Misc Panel) 79L 07/31/16 06:14: Bedside Glucose (Misc Panel) 105 CBC/BMP Laboratory Tests 07/30/16 14:38 Red Blood Count 3.41 L, Mean Corpuscular Volume 95.9, Mean Corpuscular Hemoglobin 31.9, Mean Corpuscular Hemoglobin Concent 33.3, Red Cell Distribution Width 12.7 FSBS Laboratory Tests Test 07/30/16 23:34 07/31/16 06:14 Range/Units Bedside Glucose (Misc Panel) 79 105 80-115 MG/DL Home Medications Scheduled Ascorbic Acid (Vitamin C) 500 Mg Tab 1,000 MG PO DAILY Aspirin (Aspirin 81) 81 Mg Tab 81 MG PO QPM DINNERTIME Fluoxetine HCl (Prozac) 20 Mg Cap 20 MG PO DAILY Fluoxetine HCl (Prozac) 20 Mg Cap 20 MG PO DAILY DEPRESSION Furosemide (Furosemide) 40 Mg Tab 40 MG PO DAILY Insulin Glargine (Lantus) 1 Units/0.01 Ml Susp 26 UNITS SC DAILY Multivitamins *[facility] STOCKED* (Thera M Plus *[facility] STOCKED*) 1 Tab Tab 1 TAB PO DAILY Omeprazole (Omeprazole) 20 Mg Tab 20 MG PO DAILY Rosuvastatin Calcium (Crestor) 20 Mg Tab 20 MG PO QPM DINNERTIME Sitagliptin Phosphate (Januvia) 100 Mg Tab 100 MG PO DAILY Tamsulosin Hydrochloride (Flomax) 0.4 Mg Cap 0.4 MG PO QPM AFTER DINNER Scheduled PRN Alprazolam (Alprazolam) 0.5 Mg Tab 0.25 MG PO BID PRN PRN ANXIETY Alprazolam (Alprazolam) 0.5 Mg Tab 0.5 MG PO BID PRN PRN ANXIETY Nitroglycerin (Nitrostat) 0.4 Mg Subl 0.4 MG SL NITRO PRN PRN ANGINA Allergies Coded Allergies: No Known Drug Allergy (Verified Allergy, Unknown, 06/28/16) Lisinopril (Unverified Adverse Reaction, Severe, HYPOTENSION, 06/28/16) Metformin (Unverified Adverse Reaction, Severe, LOWERS KIDNEY FUNCTION, ) Ignacia Chaudhari Jul 31, 2016 11:17
[2016-07-31 18:13] VITALS: BP 88/50
[2016-07-31] MEDS: TAMSULOSIN 0.4 MG CAP PO SCH (20:41)
[2016-07-31] MEDS: ROSUVASTATIN 10 MG TAB (CRESTOR) PO SCH (20:41)
[2016-08-01 06:25] VITALS: BP 112/56
[2016-08-01] MEDS: HumaLOG INSULIN (NovoLOG) PER UNIT SC SCH ×4 (07:04→21:00)
[2016-08-01] MEDS: LEVEMIR (INSULIN DETEMIR) 1 UNITS/0.01ML SC SCH (08:55)
[2016-08-01] MEDS: OMEPRAZOLE 20 MG CAP PO SCH (08:56)
[2016-08-01] MEDS: FUROSEMIDE 40 MG TAB PO SCH (08:56)
[2016-08-01] MEDS: MULTIVITAMINS/MINERALS THERAP 1 TAB PO SCH (08:56)
[2016-08-01] MEDS: SITagliptin 50 MG TAB (JANUVIA) PO SCH (08:56)
[2016-08-01] MEDS: ASCORBIC ACID 500 MG TAB PO SCH (08:56)
[2016-08-01] MEDS: ASPIRIN 81 MG ENTERIC TAB PO SCH (08:56)
[2016-08-01 18:02] VITALS: BP 108/51
--- NOTE | 2016-08-01 19:16 | EDDOCDS ---
Nurse's Notes [facility] Name: Hank Vilchis Age: 66 yrs Sex: Male : 1950 Arrival Date: 07/30/2016 Time: 13:[address] MD: Tena Hamilton Diagnosis: Major depressive disorder, recurrent, moderate Presentation: 07/30 13:40 Presenting complaint: states: Increase in dizziness, anxiety, ''antisocial'', dwg symptoms since September of 2015. Denies feeling suicidal. Adult Sepsis Screening: The patient does not have new or worsening altered mentation. Patient's respiratory rate is less than 22. Systolic blood pressure is greater than 100. Patient has a qSOFA score of 0- Negative Sepsis Screen. Suicide/Homicide risk assessment- the patient denies having any suicidal and/or homicidal ideations and does not present with any other emotional, behavioral or mental health complaints. Status: Patient is not a client service coordinator or dependent. Transition of care: patient was not received from another setting of care. 13:40 Acuity: HILDA Level 3 dw 13:40 Method Of Arrival: Wheelchair dw 13:52 Presenting complaint: states: Increase in anxiety, sleeping more, more angry. [facility] Triage Assessment: 13:49 General: Appears in no apparent distress, Behavior is cooperative. Pain: Denies pain. [facility] Historical: - Allergies: no known allergies; - Home Meds: 1. Lantus 100 unit/mL Sub-Q crtg 26 unit daily (Last dose: 07/30/2016 07:00) 2. Flomax 0.4 mg Oral cp24 1 cap once daily (Last dose: 07/29/2016 20:00) 3. Crestor 20 mg Oral tab 1 tab once daily (Last dose: 07/29/2016 20:00) 4. Januvia 100 mg oral tab 1 tab once daily (Last dose: 07/30/2016 08:00) 5. furosemide 40 mg Oral tab 1 tab once daily (Last dose: 07/30/2016 08:00) 6. Prozac 20 mg Oral cap 1 cap once daily (Last dose: 07/30/2016 08:00) 7. Xanax 0.25 mg oral tab 1 tab bid (Last dose: 07/30/2016 08:00) 8. omeprazole 20 mg Oral cpDR 1 cap once daily (Last dose: 07/30/2016 08:00) 9. multivitamin Oral cap 1 tab daily (Last dose: 07/30/2016 08:00) 10. Vitamin C 500 mg Oral chew daily (Last dose: 07/30/2016 08:00) 11. 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 No barriers to communication noted, The patient speaks fluent Uzbek. - Family history: Not pertinent. - : The pt / caregiver states he / she is not on anticoagulants. Home medication list is obtained from family members. - Exposure Risk Screening:: None identified. Screenin:28 Screening information is obtained from the patient. Fall risk: No risks identified. kr3 Assistance ADL's: requires no assistance with activities of daily living. Abuse/DV Screen: The patient / caregiver reports he/she is: not in a situation that causes fear, pain or injury. Nutritional screening: On diabetic diet. home support is adequate. 18:01 Advance Directives: There is no active DNR order. ld5 Assessment: 14:00 General: Direct to room 10, report given to Jasmin Fontaine RN.. [facility] 14:07 Reassessment: Patient appears in no apparent distress at this time. Patient denies pain kr3 at this time. Reassessment: reports feeling frustrated because he is not getting better. Reports being on Prozac for over 2 1/2 months which hasn't improved his depression. Neurological: Reports dizziness this AM but none at this time. . Respiratory: Respiratory effort is even, unlabored. Derm: Skin is normal. 14:44 Reassessment: orthostatic vital signs obtained with no reports of dizziness or feeling kr3 light headed. 15:30 Reassessment: Patient appears in no apparent distress at this time. Patient denies pain kr3 at this time. family at bedside. 16:28 Reassessment: patient talking with ADAMA barrow, family in room. kr3 17:32 General: Pt sitting up in bed. No apparent distress. Family members in visiting with ld5 pt. Aware of plan for admission to [facility]. Pt denies any needs at this time. Will continue to monitor. 18:00 General: Appears in no apparent distress, Behavior is cooperative, pleasant. Pain: ld5 Quality of pain is described as chronic, pt denies any acute pain. Respiratory: Airway is patent Respiratory effort is even, unlabored. Mental Health Eval: 16:38 Mental health consult is initiated at 15:30. Status: The patient is not a client service coordinator or dependent. [facility]: The patient is not an established patient of [facility]. Referral Information: Evaluation referral is generated by a relative; spouse, The patient was referred for evaluation because Pt presented to ED with symptoms of "shaky", "dizzy", and having a panic attack. and Adult children at bedside. Family reported increased anxiety, depressed for the last year. Pt denies SI/HI but reported feeling useless and has no purpose. . 17:00 Referral Information: The patient was referred for evaluation because According to rb Family, Pt worries about EVERYTHING, focuses on what he can't do then gets angry. "The fear of everything has overtaken him" per family. Family reported Pt used to be very social, [id number], people called him "happy daniele", and he talked all the time. 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 Pt will sleep for 16 hours straight according to his , but wake up still tired. Pt stated is aware of his declining in health, is frustrated he cannot do the things he used to do, including the ease of putting on his socks. Pt becomes very anxious especially in a car or when it snows. . Subjective: The patients chief complaint is Depressed, ??SI, panic attacks, constant anxiety. Delusions are denied. Patient's mood is anxious, dysphoric, hopeless, irritable, Hallucinations are denied. Mental Health history: no relevant mental health problems or treatments. Mental Health Admissions: None. Current Outpatient Mental Health Services: None. Current living environment is The patient currently lives with his / her spouse, ,. The patient is . Patient presents to Emergency Department with the following symptoms within the past 2 weeks: agitation, antisocial behavior, anxiety, decreased appetite, depressed mood, feelings of helplessness/hopelessness, panic attacks, sleep disturbance - excessive sleeping, suicidal ideation with no plan, weight loss of 20 pounds. Substance abuse: Pt denies. Mental status exam: Patients appearance is appropriate, Patient's behavior is cooperative, Speech is slow. Affect is labile. Mood is anxious. dysphoric. irritable. Hallucinations are denied. Appetite is erratic Memory is good. Energy level is lethargic. Content of thought is depressive. , Thought process is characterized by flight of ideas. Fear of everything has over taken him according to Family, constantly worries about everything. Cognitive level is oriented to person, place, time and situation Patient's insight is fair. Judgement is fair. Rapport with interviewer is good. Suicidal Ideation is denied. Homicidal ideation is not present. Disposition: Medically cleared for disposition by Nichole Giles MD Psychiatric Consult is performed by phone with Dr Karlo Blanco MD. [facility] Admission Criteria: The patient is experiencing suicidal ideation. The patient displays symptoms of severe psychiatric disorder resulting in disordered behavior and significant interference with his / her ability to maintain self care. Severe Anxiety. Psychomotor Retardation. The patient requires continuous observation and/or control to protect self, others or property. The patient requires administration and monitoring of psychoactive medications by skilled medical providers due to the side effects of the psychoactive medications or significant dosage adjustments. Legal Status: Patient's legal status will be Emergency admission: . [place] Safe [place]: [place] Safe Act is applicable to this patient. The patient poses a risk to self or other and the Nursing Tire Inspector has been notified. He/She will enter the patient's data. 17:26 DSM-V Differential Diagnosis: Unspecified Depressive Disorder (F32.9). Narrative: Pt rb uses a walker and wears his slip on shoes for stability. Family is very supportive. Pt states preferred pharmacy is: [facility] [address], [facility] on [address], and [facility] on [address] Awaiting: transfer to [facility]. Vital Signs: 13:34 BP 152 / 59; Pulse 95; Resp 20; Temp 98.8(O); Pulse Ox 96% on R/A; Weight 96.16 kg (R); elp Height 5 ft. 8 in. (172.72 cm) (R); Pain 0/10; 14:43 BP 108 / 54 Supine; Pulse 94; kr3 14:43 BP 112 / 58 Sitting; Pulse 92; kr3 14:43 BP 115 / 53 Standing; Pulse 90; kr3 17:04 BP 145 / 65; Pulse 88; Resp 16; Pulse Ox 96% on R/A; kr3 18:00 BP 116 / 63; Pulse 82; Resp 16; Temp 96.9(O); Pulse Ox 95% on R/A; ld5 13:34 Body Mass Index 32.23 (96.16 kg, 172.72 cm) elp Vitals: 13:34 Log In Time: July 30, 2016 at 13:32. elp 13:35 RN notified that patient meets Red Flag criteria. elp ED Course: 13:33 Patient visited by Janice Forde PCA. elp 13:33 Tena Hamilton is Private Physician. elp 13:33 Patient moved to Waiting elp 13:35 Patient visited by Janice Forde PCA. elp 13:41 Triage Initiated dwg 13:53 Patient moved to 10 dwg 14:09 The patient / caregiver is instructed regarding the plan of care and ED course. kr3 Accompanied by Family Member, Patient has correct armband on for positive identification. Placed in gown. Bed in low position. Side rails up X 1. 14:14 Nichole Giles MD is Attending Physician. sd1 14:16 Patient visited by Nichole Giles MD. sd1 14:37 EKG done. (by ED staff). Reviewed by Nichole Giles MD. ct3 14:38 Patient visited by Marium Marino PCA. ct3 14:43 Troponin Sent. kr3 14:43 CIP Sent. kr3 14:43 Acetaminophen Level Sent. kr3 14:43 Basic Metabolic Profile Sent. kr3 14:43 Complete Blood Count Sent. kr3 14:43 Ethyl Alcohol (ethanol) Sent. kr3 14:43 Liver Profile Sent. kr3 14:43 Salicylate Level Sent. kr3 14:44 Thyroid Stimulating Hormone Sent. kr3 15:30 CT Head Without Contrast Returned. EDMS 15:42 [facility] Payment Agreement was scanned into [employer] and attached to record. gjb 16:22 Patient visited by Marium Marino PCA. ct3 16:23 CT Head Without Contrast Returned. EDMS 16:27 Drug Eval Toxicology ED Only Sent. kr3 16:28 No IV's were initiated during this patient's visit. No procedures done that require kr3 assistance. 17:00 Patient moved to [facility] kr3 17:07 Karlo Blanco MD is Hospitalizing Provider. sd1 17:34 Patient visited by Radha Hinojosa,JOSIAS. ld5 17:38 Patient visited by Radha Hinojosa,JOSIAS. ld5 17:50 E Legal paperwork was scanned into [employer] and attached to record. jl 17:58 Patient visited by Raffy Bradshaw. dpm 18:02 Patient visited by Radha Hinojosa RN. ld5 18:15 Patient visited by Radha Hinojosa,JOSIAS. ld5 07/31 11:02 T-Sheet-- Draft Copy was scanned into [employer] and attached to record. gb 11:02 ECG/EKG was scanned into [employer] and attached to record. gb Attachments: 17:50 E Legal paperwork jl Order Results: Lab Order: Acetaminophen Level; SPEC'M 07/30/16 14:38 Test: ACETAMINOPHEN LEVEL; Value: < 2.0; Range: 10.0-30.0; Abnormal: Below low normal; Units: UG/ML; Status: F Lab Order: Basic Metabolic Profile; SPEC'M 07/30/16 14:38 Test: GLUCOSE, FASTING; Value: 127; Range: 80-110; Abnormal: Above high normal; Units: MG/DL; Status: F Test: BLOOD UREA NITROGEN; Value: 31; Range: 7-18; Abnormal: Above high normal; Units: MG/DL; Status: F Test: CREATININE FOR GFR; Value: 1.28; Range: 0.70-1.30; Units: MG/DL; Status: F Test: GLOMERULAR FILTRATION RATE; Value: 59.9; Range: >49; Status: F Test: SODIUM LEVEL; Value: 140; Range: 136-145; Units: MEQ/L; Status: F Test: POTASSIUM SERUM; Value: 4.8; Range: 3.5-5.1; Units: MEQ/L; Status: F Test: CHLORIDE LEVEL; Value: 104; Range: 98-107; Units: MEQ/L; Status: F Test: CARBON DIOXIDE LEVEL; Value: 28; Range: 21-32; Units: MEQ/L; Status: F Test: ANION GAP; Value: 8; Range: 8-16; Units: MEQ/L; Status: F Test: CALCIUM LEVEL; Value: 8.8; Range: 8.8-10.2; Units: MG/DL; Status: F Test Note: ; Units are mL/min/1.73 m2 Chronic Kidney Disease Staging per NKF: Stage I & II GFR >=60 Normal to Mildly Decreased Stage III GFR 30-59 Moderately Decreased Stage IV GFR 15-29 Severely Decreased Stage V GFR <15 Very Little GFR Left ESRD GFR <15 on [employer] Lab Order: Complete Blood Count; SPEC'M 07/30/16 14:38 Test: WHITE BLOOD COUNT; Value: 3.3; Range: 4.0-10.0; Abnormal: Below low normal; Units: K/mm3; Status: F Test: RED BLOOD COUNT; Value: 3.41; Range: 4.30-6.10; Abnormal: Below low normal; Units: M/mm3; Status: F Test: HEMOGLOBIN; Value: 10.9; Range: 14.0-18.0; Abnormal: Below low normal; Units: g/dl; Status: F Test: HEMATOCRIT; Value: 32.7; Range: 42.0-52.0; Abnormal: Below low normal; Units: %; Status: F Test: MEAN CORPUSCULAR VOLUME; Value: 95.9; Range: 80.0-96.0; Units: fl; Status: F Test: MEAN CORPUSCULAR HEMOGLOBIN; Value: 31.9; Range: 27.0-33.0; Units: pg; Status: F Test: MEAN CORPUSCULAR HGB CONC; Value: 33.3; Range: 32.0-36.5; Units: g/dl; Status: F Test: RED CELL DISTRIBUTION WIDTH; Value: 12.7; Range: 11.5-14.5; Units: %; Status: F Test: PLATELET COUNT, AUTOMATED; Value: 127; Range: 150-450; Abnormal: Below low normal; Units: k/mm3; Status: F Lab Order: Drug Eval Toxicology ED Only; SPEC'M 07/30/16 16:26 Test: AMPHETAMINES LEVEL URINE; Value: NEGATIVE; Range: NEGATIVE; Status: F Test: BARBITURATES URINE; Value: NEGATIVE; Range: NEGATIVE; Status: F Test: BENZODIAZEPINES URINE; Value: NEGATIVE; Range: NEGATIVE; Status: F Test: CANNABINOIDS URINE; Value: NEGATIVE; Range: NEGATIVE; Status: F Test: COCAINE METABOLITE URINE; Value: NEGATIVE; Range: NEGATIVE; Status: F Test: METHADONE URINE; Value: NEGATIVE; Range: NEGATIVE; Status: F Test: OPIATES URINE; Value: NEGATIVE; Range: NEGATIVE; Status: F Test: TRICYCLIC ANTIDEPRESS URINE; Value: NEGATIVE; Range: NEGATIVE; Status: F Test Note: ; ALL PRESUMPTIVE POSITIVE FINDINGS ARE UNCONFIRMED NORMAL VALUES THRESHOLD IN NG/ML AMPHETAMINES 1000 METHAMPHETAMINES 1000 BARBITURATES 300 BENZODIAZEPINES 300 CANNABINOIDS (THC) 50 COCAINE METABOLITE 300 METHADONE 300 OPIATES 300 PHENCYCLIDINE 25 TRICYCLIC ANTIDEPRESSANTS 1000 RESULTS ARE FOR MEDICAL PURPOSES ONLY. ALL URINE SPECIMENS WILL BE SAVED FOR 3 DAYS. IF CONFIRMATION OF A PRESUMPTIVE POSTIVE SCREEN RESULT IS DESIRED, CALL CHEMISTRY ([phone]) AND REQUEST URINE TO BE SENT TO REFERENCE LAB. FOR A LIST OF CLOSELY RELATED COMPOUNDS PLEASE CALL THE LAB. Lab Order: Ethyl Alcohol (ethanol); SPEC'M 07/30/16 14:38 Test: ETHYL ALCOHOL (ETHANOL); Value: 0.004; Range: 0.000-0.010; Units: %; Status: F Lab Order: Liver Profile; SPEC' 07/30/16 14:38 Test: AST/SGOT; Value: 47; Range: 15-37; Abnormal: Above high normal; Units: U/L; Status: F Test: ALT/SGPT; Value: 48; Range: 12-78; Units: U/L; Status: F Test: ALKALINE PHOSPHATASE; Value: 85; Range: 45-117; Units: U/L; Status: F Test: BILIRUBIN,TOTAL; Value: 0.4; Range: 0.2-1.0; Units: MG/DL; Status: F Test: BILIRUBIN,DIRECT; Value: 0.1; Range: 0.0-0.2; Units: MG/DL; Status: F Test: TOTAL PROTEIN; Value: 7.0; Range: 6.4-8.2; Units: GM/DL; Status: F Test: ALBUMIN; Value: 3.5; Range: 3.2-5.2; Units: GM/DL; Status: F Test: ALBUMIN/GLOBULIN RATIO; Value: 1.00; Range: 1.00-1.93; Status: F Lab Order: Salicylate Level; [facility] 07/30/16 14:38 Test: SALICYLATE LEVEL; Value: < 1.7; Range: 5.0-30.0; Abnormal: Below low normal; Units: MG/DL; Status: F Lab Order: Thyroid Stimulating Hormone; [facility] 07/30/16 14:38 Test: THYROID STIMULATING HORMONE; Value: 1.630; Range: 0.358-3.740; Units: uIU/ML; Status: F Lab Order: CIP; [facility] 07/30/16 14:38 Test: CPK CREATINE PHOSPHOKINASE; Value: 311; Range: 39-308; Abnormal: Above high normal; Units: U/L; Status: F Test: CK-MB VALUE MASS; Value: 11.3; Range: 0.0-3.6; Abnormal: Above high normal; Units: NG/ML; Status: F Test: MB/CK RELATIVE INDEX; Value: 3.63; Range: < OR =4; Status: F Test Note: ; DIAGNOSIS CRITERIA MMB ng/ml Relative Index (RI) NON-AMI < or = 5 N/A HALL ZONE > 5 < or = 4 AMI > 5 > 4 Lab Order: Troponin; [facility] 07/30/16 14:38 Test: TROPONIN I; Value: < 0.02; Range: < 0.10; Units: NG/ML; Status: F Test Note: ; Troponin I Reference Interval for [employer] LOCI: 99th Percentile= 0.00-0.045 ng/ml Risk Stratification: <= 0.10 ng/ml Decreased Risk for Adverse Clinical Events. 0.10-1.50 ng/ml Increased Risk for Adverse Clinical Events. Evaluation of additional criterion and/or repeat testing in 2-6 hours is suggested to rule out myocardial damage. >= 1.50 ng/ml Indicative of Myocardial Injury. Radiology Order: CT Head Without Contrast Test: CT Head Without Contrast REASON FOR EXAMINATION: altered mental status; CT HEAD WITHOUT CONTRAST:; ; HISTORY: Altered mental status.; ; COMPARISON: 10/15/2014; ; Areas of decreased attenuation are present in the periventricular white matter.; This represents small vessel ischemic disease. There is no intraparenchymal; hemorrhage, mass or midline shift. The ventricular system and cortical sulci are; dilated consistent with mild volume loss. There is no extracerebral collection.; The visualized sinuses are clear.; ; IMPRESSION:; ; 1. Small vessel ischemic disease.; ; 2. Mild volume loss.; ; ; Signed by; Hank Demarco MD 07/30/2016 03:28 P; Outcome: 07/30 16:29 CT Study completed. kr3 17:07 Decision to Hospitalize by Provider. sd1 18:01 Discharge Assessment: Patient awake, alert and oriented x 3. No cognitive and/or ld5 functional deficits noted. Patient verbalized understanding of disposition instructions. patient administered narcotics - no. The following High Risk Discharge criteria are identified: Yes, [facility] admission. Admitted to Psych accompanied by tech, family with patient, via wheelchair, with chart. Condition: stable. Property inventory done, :Personal belongings accompany Pt. 18:15 Patient left the ED. ld5 Signatures: Dispatcher [employer] EDMS Nichole Giles MD MD sd1 Bautista Concepcion, RN RN michealg Angie Westfall, PSA PSA rb Mark Sanchez, PSA PSA jl Cyndi Yao, Reg Reg Kiah Garcia RN RN kr3 Radha Hinojosa RN RN ld5 Marium Marino, POULTRY PROCESSOR POULTRY PROCESSOR ct3 Raffy Bradshaw dpm, Erin, POULTRY PROCESSOR POULTRY PROCESSOR elp Nataly Roman Corrections: (The following items were deleted from the chart) 17:25 13:49 PMHx: syringoelia; nicky ld5 Chart Complete MTDD
--- NOTE | 2016-08-01 19:16 | EDDOCDS ---
Physician Documentation [facility] Name: Hank Vilchis Age: 66 yrs Sex: Male : 1950 Arrival Date: 07/30/2016 Time: 13:[address] MD: Tena Hamilton Disposition: 07/30/16 17:07 Hospitalization ordered by Karlo Blanco for Inpatient Admission. Preliminary diagnosis is Major depressive disorder, recurrent, moderate. - Bed requested for Admit. - Status is Inpatient Admission. ld5 - Condition is Stable. - Problem is an ongoing problem. - Symptoms are unchanged. Historical: - Allergies: no known allergies; - Home Meds: 1. Lantus 100 unit/mL Sub-Q crtg 26 unit daily (Last dose: 07/30/2016 07:00) 2. Flomax 0.4 mg Oral cp24 1 cap once daily (Last dose: 07/29/2016 20:00) 3. Crestor 20 mg Oral tab 1 tab once daily (Last dose: 07/29/2016 20:00) 4. Januvia 100 mg oral tab 1 tab once daily (Last dose: 07/30/2016 08:00) 5. furosemide 40 mg Oral tab 1 tab once daily (Last dose: 07/30/2016 08:00) 6. Prozac 20 mg Oral cap 1 cap once daily (Last dose: 07/30/2016 08:00) 7. Xanax 0.25 mg oral tab 1 tab bid (Last dose: 07/30/2016 08:00) 8. omeprazole 20 mg Oral cpDR 1 cap once daily (Last dose: 07/30/2016 08:00) 9. multivitamin Oral cap 1 tab daily (Last dose: 07/30/2016 08:00) 10. Vitamin C 500 mg Oral chew daily (Last dose: 07/30/2016 08:00) 11. 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 No barriers to communication noted, The patient speaks fluent Greenlandic. - Family history: Not pertinent. - : The pt / caregiver states he / she is not on anticoagulants. Home medication list is obtained from family members. - Exposure Risk Screening:: None identified. Vital Signs: 07/30 13:34 BP 152 / 59; Pulse 95; Resp 20; Temp 98.8(O); Pulse Ox 96% on R/A; Weight 96.16 kg / elp 212 lbs (R); Height 5 ft. 8 in. (172.72 cm) (R); Pain 0/10; 14:43 BP 108 / 54 Supine; Pulse 94; kr3 14:43 BP 112 / 58 Sitting; Pulse 92; kr3 14:43 BP 115 / 53 Standing; Pulse 90; kr3 17:04 BP 145 / 65; Pulse 88; Resp 16; Pulse Ox 96% on R/A; kr3 18:00 BP 116 / 63; Pulse 82; Resp 16; Temp 96.9(O); Pulse Ox 95% on R/A; ld5 13:34 Body Mass Index 32.23 (96.16 kg, 172.72 cm) elp MDM: 14:29 Consult PFS/PSA/Software Developer Mid Level ordered. sd1 14:29 Consult PFS/PSA/Software Developer Mid Level: Patient's case requires discussion with on-call sd1 Psychiatrist ordered. 14:29 PSA/PFS to call Nursing Color Artist, to enter patient data on [place] if patient sd1 involuntarily admitted or transferred for SI or HI ordered. 14:29 Confirm accurate psychiatric medication list and times of last dosage ordered. sd1 14:29 Detain Pt Until Medically/PFS Cleared ordered. sd1 14:29 Orthostatic VS ordered. sd1 14:30 Acetaminophen Level Ordered. EDMS 14:30 Basic Metabolic Profile Ordered. EDMS 14:30 Complete Blood Count Ordered. EDMS 14:30 Drug Eval Toxicology ED Only Ordered. EDMS 14:30 Ethyl Alcohol (ethanol) Ordered. EDMS 14:30 Liver Profile Ordered. EDMS 14:30 Salicylate Level Ordered. EDMS 14:30 Thyroid Stimulating Hormone Ordered. EDMS 14:30 CIP Ordered. EDMS 14:30 Troponin Ordered. EDMS 14:30 ECG WITH READING ER PHYS+CARDIAG ordered. EDMS 14:30 CT Head Without Contrast Ordered. EDMS 15:23 Consult: Marketing Program Coordinator ordered. sd1 15:38 Acetaminophen Level Reviewed. sd1 15:38 Basic Metabolic Profile Reviewed. sd1 15:38 Complete Blood Count Reviewed. sd1 15:38 Liver Profile Reviewed. sd1 15:38 Salicylate Level Reviewed. sd1 15:38 CIP Reviewed. sd1 15:38 Ethyl Alcohol (ethanol) Reviewed. sd1 15:38 Thyroid Stimulating Hormone Reviewed. sd1 15:38 Troponin Reviewed. sd1 15:38 CT Head Without Contrast Reviewed. sd1 15:41 Financial registration complete. gjb 15:42 [facility] Payment Agreement was scanned into [employer] and attached to record. gjb 16:37 Consult: Marketing Program Coordinator complete. rb 16:37 Consult PFS/PSA/Software Developer Mid Level complete. rb 16:37 Consult PFS/PSA/Software Developer Mid Level: Patient's case requires discussion with on-call rb Psychiatrist complete. 16:59 Drug Eval Toxicology ED Only Reviewed. sd1 16:59 CT Head Without Contrast Reviewed. sd1 17:05 REGULAR DIET PLASTIC AMARAL+DIET ordered. EDMS 17:38 PSA/PFS to call Nursing Color Artist, to enter [place] data [place] if patient ld5 involuntarily admitted or transferred for SI or HI complete. 17:42 Admit to [facility]: ordered. EDMS 17:50 [facility] Legal paperwork was scanned into [employer] and attached to record. jl 07/31 11:02 T-Sheet-- Draft Copy was scanned into [employer] and attached to record. gb 11:02 ECG/EKG was scanned into [employer] and attached to record. gb Signatures: Dispatcher [employer] EDDE Nichole Giles MD MD sd1 Bautista Concepcion RN RN dwg Angie Westfall, PSA PSA rb Mark Sanchez, PSA PSA jl Cyndi Yao, Reg Reg gb Kiah FontaineRN RN sami3 Radha HinojosaRN RN tony5 Nataly Roman The chart was reviewed and I authenticate all verbal orders and agree with the evaluation and treatment provided.Corrections: (The following items were deleted from the chart) 07/30 17:25 13:49 PMHx: syringoelia; dwg ld5 Attachments: 15:42 [facility] Payment Agreement gjb 07/31 11:02 T-Sheet-- Draft Copy gb 11:02 ECG/EKG gb Chart Complete MTDD
--- NOTE | 2016-08-01 19:16 | EDDOCDS ---
Physician Documentation [facility] Name: Hank Vilchis Age: 66 yrs Sex: Male : 1950 Arrival Date: 07/30/2016 Time: 13:[address] MD: Tena Hamilton Disposition: 07/30/16 17:07 Hospitalization ordered by Karlo Blanco for Inpatient Admission. Preliminary diagnosis is Major depressive disorder, recurrent, moderate. - Bed requested for Admit. - Status is Inpatient Admission. ld5 - Condition is Stable. - Problem is an ongoing problem. - Symptoms are unchanged. Historical: - Allergies: no known allergies; - Home Meds: 1. Lantus 100 unit/mL Sub-Q crtg 26 unit daily (Last dose: 07/30/2016 07:00) 2. Flomax 0.4 mg Oral cp24 1 cap once daily (Last dose: 07/29/2016 20:00) 3. Crestor 20 mg Oral tab 1 tab once daily (Last dose: 07/29/2016 20:00) 4. Januvia 100 mg oral tab 1 tab once daily (Last dose: 07/30/2016 08:00) 5. furosemide 40 mg Oral tab 1 tab once daily (Last dose: 07/30/2016 08:00) 6. Prozac 20 mg Oral cap 1 cap once daily (Last dose: 07/30/2016 08:00) 7. Xanax 0.25 mg oral tab 1 tab bid (Last dose: 07/30/2016 08:00) 8. omeprazole 20 mg Oral cpDR 1 cap once daily (Last dose: 07/30/2016 08:00) 9. multivitamin Oral cap 1 tab daily (Last dose: 07/30/2016 08:00) 10. Vitamin C 500 mg Oral chew daily (Last dose: 07/30/2016 08:00) 11. 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 No barriers to communication noted, The patient speaks fluent Andorran. - Family history: Not pertinent. - : The pt / caregiver states he / she is not on anticoagulants. Home medication list is obtained from family members. - Exposure Risk Screening:: None identified. Vital Signs: 07/30 13:34 BP 152 / 59; Pulse 95; Resp 20; Temp 98.8(O); Pulse Ox 96% on R/A; Weight 96.16 kg / elp 212 lbs (R); Height 5 ft. 8 in. (172.72 cm) (R); Pain 0/10; 14:43 BP 108 / 54 Supine; Pulse 94; kr3 14:43 BP 112 / 58 Sitting; Pulse 92; kr3 14:43 BP 115 / 53 Standing; Pulse 90; kr3 17:04 BP 145 / 65; Pulse 88; Resp 16; Pulse Ox 96% on R/A; kr3 18:00 BP 116 / 63; Pulse 82; Resp 16; Temp 96.9(O); Pulse Ox 95% on R/A; ld5 13:34 Body Mass Index 32.23 (96.16 kg, 172.72 cm) elp MDM: 14:29 Consult PFS/PSA/Irrigation Manager ordered. sd1 14:29 Consult PFS/PSA/Irrigation Manager: Patient's case requires discussion with on-call sd1 Psychiatrist ordered. 14:29 PSA/PFS to call Nursing Labor Representative, to enter [place] data [place] if patient sd1 involuntarily admitted or transferred for SI or HI ordered. 14:29 Confirm accurate psychiatric medication list and times of last dosage ordered. sd1 14:29 Detain Pt Until Medically/PFS Cleared ordered. sd1 14:29 Orthostatic VS ordered. sd1 14:30 Acetaminophen Level Ordered. EDMS 14:30 Basic Metabolic Profile Ordered. EDMS 14:30 Complete Blood Count Ordered. EDMS 14:30 Drug Eval Toxicology ED Only Ordered. EDMS 14:30 Ethyl Alcohol (ethanol) Ordered. EDMS 14:30 Liver Profile Ordered. EDMS 14:30 Salicylate Level Ordered. EDMS 14:30 Thyroid Stimulating Hormone Ordered. EDMS 14:30 CIP Ordered. EDMS 14:30 Troponin Ordered. EDMS 14:30 ECG WITH READING ER PHYS+CARDIAG ordered. EDMS 14:30 CT Head Without Contrast Ordered. EDMS 15:23 Consult: Director Digital Marketing ordered. sd1 15:38 Acetaminophen Level Reviewed. sd1 15:38 Basic Metabolic Profile Reviewed. sd1 15:38 Complete Blood Count Reviewed. sd1 15:38 Liver Profile Reviewed. sd1 15:38 Salicylate Level Reviewed. sd1 15:38 CIP Reviewed. sd1 15:38 Ethyl Alcohol (ethanol) Reviewed. sd1 15:38 Thyroid Stimulating Hormone Reviewed. sd1 15:38 Troponin Reviewed. sd1 15:38 CT Head Without Contrast Reviewed. sd1 15:41 Financial registration complete. gjb 15:42 [facility] Payment Agreement was scanned into [employer] and attached to record. gjb 16:37 Consult: Director Digital Marketing complete. rb 16:37 Consult PFS/PSA/Irrigation Manager complete. rb 16:37 Consult PFS/PSA/Irrigation Manager: Patient's case requires discussion with on-call rb Psychiatrist complete. 16:59 Drug Eval Toxicology ED Only Reviewed. sd1 16:59 CT Head Without Contrast Reviewed. sd1 17:05 REGULAR DIET PLASTIC AMARAL+DIET ordered. EDMS 17:38 PSA/PFS to call Nursing Labor Representative, to enter [place] if patient ld5 involuntarily admitted or transferred for SI or HI complete. 17:42 Admit to [facility]: ordered. EDMS 17:50 [facility] Legal paperwork was scanned into [employer] and attached to record. jl 07/31 11:02 T-Sheet-- Draft Copy was scanned into [employer] and attached to record. gb 11:02 ECG/EKG was scanned into [employer] and attached to record. gb Signatures: Dispatcher [employer] EDHI Nichole Giles MD MD sd1 Bautista Concepcion RN RN dwg Angie Westfall, PSA PSA rb Mark Sanchez, PSA PSA jl Cyndi Yao, Reg Reg gb Kiah FontaineRN RN sami3 Radha HinojosaRN RN tony5 Nataly Roman The chart was reviewed and I authenticate all verbal orders and agree with the evaluation and treatment provided.Corrections: (The following items were deleted from the chart) 07/30 17:25 13:49 PMHx: syringoelia; dwg ld5 Attachments: 15:42 [facility] Payment Agreement gjb 07/31 11:02 T-Sheet-- Draft Copy gb 11:02 ECG/EKG gb Chart Complete MTDD
[2016-08-01] MEDS: TAMSULOSIN 0.4 MG CAP PO SCH (21:08)
[2016-08-01] MEDS: ROSUVASTATIN 10 MG TAB (CRESTOR) PO SCH (21:08)
[2016-08-01] MEDS: ALPRAZolam 0.25 MG TAB PO SCH (21:08)
[2016-08-02 06:09] VITALS: BP 141/62
[2016-08-02] MEDS: HumaLOG INSULIN (NovoLOG) PER UNIT SC SCH ×4 (06:14→20:39)
[2016-08-02] MEDS: ASPIRIN 81 MG ENTERIC TAB PO SCH (09:00)
[2016-08-02] MEDS: LEVEMIR (INSULIN DETEMIR) 1 UNITS/0.01ML SC SCH (09:00)
[2016-08-02] MEDS: ASCORBIC ACID 500 MG TAB PO SCH (09:00)
[2016-08-02] MEDS: MULTIVITAMINS/MINERALS THERAP 1 TAB PO SCH (09:00)
[2016-08-02] MEDS: OMEPRAZOLE 20 MG CAP PO SCH (09:00)
[2016-08-02] MEDS: FUROSEMIDE 40 MG TAB PO SCH (09:00)
[2016-08-02] MEDS: SITagliptin 50 MG TAB (JANUVIA) PO SCH (09:00)
[2016-08-02 18:00] VITALS: BP 140/63
[2016-08-02] MEDS: TAMSULOSIN 0.4 MG CAP PO SCH (20:44)
[2016-08-02] MEDS: ALPRAZolam 0.25 MG TAB PO SCH (20:44)
[2016-08-02] MEDS: ROSUVASTATIN 10 MG TAB (CRESTOR) PO SCH (20:44)
--- NOTE | 2016-08-02 23:50 | IPNPDOC ---
[facility] Progress Note Progress Note DATE OF SERVICE: 08/01/16 SUBJECTIVE: Patient reports his mood as anxious today. Patient reported he is able to tolerate anxiety level. Patient is currently being tapered off Xanax. Throughout interview patient is cooperative and very engaging. He reports a near life ending diagnosis requiring surgery which caused functional deficiencies that he was able to overcome. Patient reports realizing that recent medical issues are again limiting his functions. He has insight that he has become depressed due to his inability to function as he is used to. Patient reports understanding that he must create a new identity and develop new interests and to not focus on the recent loss recent functional losses and lifestyle/identity. Patient denies SI/HI and denies AH/VH. OBJECTIVE: VITAL SIGNS: See below. CURRENT MEDICATIONS: See below. MENTAL STATUS EXAMINATION: Patient is a [66yo male ], [looks stated age and in no acute distress.]. Speech: Is [RRR and spontaneous]. Thought processes: [Linear and goal-directed. Thought content: [Developing new interests as he has lost his ability to drive]. Associations: [Within normal limits. Abnormal or psychotic thoughts: [No perceptual issues noted or reported] Judgment: [Fair] Insight: [Fair] Oriented to: [Time, place and person.] Recent and Remote Memory: [Immediate, short-term and long-term memory is intact] . Attention Span and Concentration: [Good]. Fund of knowledge: [ Good]. Mood: [Anxious]. Affect: [Anxious]. ASSESSMENT: 1. Adjustment disorder with mixed anxiety and depressed mood, rule out medication induced movement disorder, rule out neurocognitive disorder, rule out depressive disorder due to general medical condition: Syringomyelia, DM, CHF , LIANNA PLAN: 1. Continue Xanax taper. 2. Initiation of antidepressant/anxiolytic per primary provider. TIME SPENT: [30] minutes. Vital Signs Vital Signs Date Time Temp Pulse Resp B/P Pulse Ox O2 Delivery O2 Flow Rate FiO2 08/02/16 18:00 96.9 83 16 140/63 07/30/16 18:19 91 Room Air Laboratory Data 24H Labs Laboratory Tests 2 08/02/16 06:09: Bedside Glucose (Misc Panel) 78L 08/02/16 12:39: Bedside Glucose (Misc Panel) 83 08/02/16 17:03: Bedside Glucose (Misc Panel) 87 08/02/16 20:38: Bedside Glucose (Misc Panel) 140H Current Medications Current Medications Medications (Trade) Dose Ordered Sig/Imelda Route PRN Reason Start Time Stop Time Status Last Admin Dose Admin Acetaminophen (Tylenol) 650 mg Q6HP PRN PO HEADACHE or DISCOMFORT 07/30/16 22:00 08/29/16 21:59 Al Hydrox/Mg Hydrox/Simethicone (Mylanta) 30 ml Q4HP PRN PO HEARTBURN/INDIGESTION 07/30/16 22:00 08/29/16 21:59 Alprazolam (Xanax) 0.125 mg BID PO 07/31/16 21:00 07/31/16 21:00 DC Alprazolam (Xanax) 0.125 mg QHS PO 07/31/16 21:00 08/04/16 23:00 08/02/16 20:44 Alprazolam (Xanax) 0.25 mg BID PO 07/30/16 21:00 07/31/16 20:23 DC 07/31/16 09:55 Alprazolam (Xanax) 0.25 mg BID PO 07/31/16 09:00 07/31/16 09:00 DC Alprazolam (Xanax) 0.5 mg BID PO 07/30/16 21:00 07/30/16 23:11 DC Ascorbic Acid (Vitamin C) 1,000 mg DAILY PO 07/31/16 09:00 08/30/16 08:59 08/02/16 09:00 Aspirin (Ecotrin) 81 mg DAILY PO 07/31/16 09:00 08/30/16 08:59 08/02/16 09:00 Fluoxetine HCl (PROzac) 20 mg DAILY PO 07/31/16 09:00 07/31/16 20:23 DC 07/31/16 09:55 Furosemide (Lasix) 40 mg DAILY PO 07/31/16 09:00 08/30/16 08:59 08/02/16 09:00 Glucagon (Glucagon) 1 mg ASDIRECTED PRN SC SEE LABEL COMMENTS 07/30/16 23:15 08/29/16 23:14 Glucose (Glucose) 16 GM ASDIRECTED PRN PO SEE LABEL COMMENTS 07/30/16 23:15 08/29/16 23:14 Home Med (Med Rec Complete!) ASDIRECTED XX 07/30/16 18:00 07/30/16 18:16 DC Insulin Detemir (Levemir Insulin) 26 units DAILY SC 07/31/16 09:00 08/30/16 08:59 08/02/16 09:00 Insulin Human Lispro (HumaLOG INSULIN) SEE PROTOCOL TABLE AC SC 07/31/16 07:30 08/30/16 07:29 08/01/16 17:17 Insulin Human Lispro (HumaLOG INSULIN) SEE PROTOCOL TABLE QHS SC 07/30/16 21:00 08/29/16 20:59 Magnesium Hydroxide (Milk Of Magnesia) 30 ml DAILYPRN PRN PO CONSTIPATION 07/30/16 22:00 08/29/16 21:59 Multivitamins (Theragram-M) 1 tab DAILY PO 07/31/16 09:00 08/30/16 08:59 08/02/16 09:00 Nitroglycerin (Nitrostat (1/ 150)) 0.4 mg Q5MP PRN SL CHEST PAIN 07/30/16 22:00 08/29/16 21:59 Omeprazole (PriLOSEC) 20 mg DAILY PO 07/31/16 09:00 08/30/16 08:59 08/02/16 09:00 Rosuvastatin Calcium (Crestor) 20 mg QHS PO 07/30/16 21:00 08/29/16 20:59 08/02/16 20:44 Sitagliptin Phosphate (Januvia) 100 mg DAILY PO 07/31/16 09:00 08/30/16 08:59 08/02/16 09:00 Tamsulosin HCl (Flomax) 0.4 mg QHS PO 07/30/16 21:00 08/29/16 20:59 08/02/16 20:44 Trazodone HCl (Desyrel) 50 mg QHSP PRN PO INSOMNIA 07/30/16 22:00 08/29/16 21:59 Allergies Coded Allergies: No Known Drug Allergy (Verified Allergy, Unknown, 06/28/16) Lisinopril (Unverified Adverse Reaction, Severe, HYPOTENSION, 06/28/16) Metformin (Unverified Adverse Reaction, Severe, LOWERS KIDNEY FUNCTION, ) LESLIE BOWLES MD Aug 02, 2016 23:50
--- NOTE | 2016-08-02 23:50 | IPNPDOC ---
[facility] Progress Note Progress Note DATE OF SERVICE: 08/02/16 SUBJECTIVE: Patient reports his mood as anxious today. Patient is cooperative with interview and discusses his children and grandchildren and their many accomplishments. He reports interest in reading [employer] magazines. Patient focused on finding a new way to spend his time as he has recently lost his ability to drive. Patient again expresses insight that he has become depressed and anxious due to his inability to function as he is used to. Patient is currently being tapered off Xanax. Patient reports he is able to tolerate his current level of anxiety. Patient is social in the milieu. Patient denies SI/HI and denies AH/VH. OBJECTIVE: VITAL SIGNS: See below. CURRENT MEDICATIONS: See below. MENTAL STATUS EXAMINATION: Patient is a [66yo male ], [looks stated age and in no acute distress.]. Speech: Is [RRR and spontaneous]. Thought processes: [Linear and goal-directed. Thought content: [Developing new interests, reading magazines]. Associations: [Within normal limits. Abnormal or psychotic thoughts: [No perceptual issues noted or reported] Judgment: [Fair] Insight: [Fair] Oriented to: [Time, place and person.] Recent and Remote Memory: [Immediate, short-term and long-term memory is intact] . Attention Span and Concentration: [Good]. Fund of knowledge: [ Good]. Mood: [Anxious]. Affect: [Anxious]. ASSESSMENT: 1. Adjustment disorder with mixed anxiety and depressed mood, rule out medication induced movement disorder, rule out neurocognitive disorder, rule out depressive disorder due to general medical condition: Syringomyelia, DM, CHF , LIANNA PLAN: 1. Continue Xanax taper. 2. Initiation of antidepressant/anxiolytic per primary provider. TIME SPENT: [30] minutes. Vital Signs Vital Signs Date Time Temp Pulse Resp B/P Pulse Ox O2 Delivery O2 Flow Rate FiO2 08/02/16 18:00 96.9 83 16 140/63 07/30/16 18:19 91 Room Air Laboratory Data 24H Labs Laboratory Tests 2 08/02/16 06:09: Bedside Glucose (Misc Panel) 78L 08/02/16 12:39: Bedside Glucose (Misc Panel) 83 08/02/16 17:03: Bedside Glucose (Misc Panel) 87 08/02/16 20:38: Bedside Glucose (Misc Panel) 140H Current Medications Current Medications Medications (Trade) Dose Ordered Sig/Imelda Route PRN Reason Start Time Stop Time Status Last Admin Dose Admin Acetaminophen (Tylenol) 650 mg Q6HP PRN PO HEADACHE or DISCOMFORT 07/30/16 22:00 08/29/16 21:59 Al Hydrox/Mg Hydrox/Simethicone (Mylanta) 30 ml Q4HP PRN PO HEARTBURN/INDIGESTION 07/30/16 22:00 08/29/16 21:59 Alprazolam (Xanax) 0.125 mg BID PO 07/31/16 21:00 07/31/16 21:00 DC Alprazolam (Xanax) 0.125 mg QHS PO 07/31/16 21:00 08/04/16 23:00 08/02/16 20:44 Alprazolam (Xanax) 0.25 mg BID PO 07/30/16 21:00 07/31/16 20:23 DC 07/31/16 09:55 Alprazolam (Xanax) 0.25 mg BID PO 07/31/16 09:00 07/31/16 09:00 DC Alprazolam (Xanax) 0.5 mg BID PO 07/30/16 21:00 07/30/16 23:11 DC Ascorbic Acid (Vitamin C) 1,000 mg DAILY PO 07/31/16 09:00 08/30/16 08:59 08/02/16 09:00 Aspirin (Ecotrin) 81 mg DAILY PO 07/31/16 09:00 08/30/16 08:59 08/02/16 09:00 Fluoxetine HCl (PROzac) 20 mg DAILY PO 07/31/16 09:00 07/31/16 20:23 DC 07/31/16 09:55 Furosemide (Lasix) 40 mg DAILY PO 07/31/16 09:00 08/30/16 08:59 08/02/16 09:00 Glucagon (Glucagon) 1 mg ASDIRECTED PRN SC SEE LABEL COMMENTS 07/30/16 23:15 08/29/16 23:14 Glucose (Glucose) 16 GM ASDIRECTED PRN PO SEE LABEL COMMENTS 07/30/16 23:15 08/29/16 23:14 Home Med (Med Rec Complete!) ASDIRECTED XX 07/30/16 18:00 07/30/16 18:16 DC Insulin Detemir (Levemir Insulin) 26 units DAILY SC 07/31/16 09:00 08/30/16 08:59 08/02/16 09:00 Insulin Human Lispro (HumaLOG INSULIN) SEE PROTOCOL TABLE AC SC 07/31/16 07:30 08/30/16 07:29 08/01/16 17:17 Insulin Human Lispro (HumaLOG INSULIN) SEE PROTOCOL TABLE QHS SC 07/30/16 21:00 08/29/16 20:59 Magnesium Hydroxide (Milk Of Magnesia) 30 ml DAILYPRN PRN PO CONSTIPATION 07/30/16 22:00 08/29/16 21:59 Multivitamins (Theragram-M) 1 tab DAILY PO 07/31/16 09:00 08/30/16 08:59 08/02/16 09:00 Nitroglycerin (Nitrostat (1/ 150)) 0.4 mg Q5MP PRN SL CHEST PAIN 07/30/16 22:00 08/29/16 21:59 Omeprazole (PriLOSEC) 20 mg DAILY PO 07/31/16 09:00 08/30/16 08:59 08/02/16 09:00 Rosuvastatin Calcium (Crestor) 20 mg QHS PO 07/30/16 21:00 08/29/16 20:59 08/02/16 20:44 Sitagliptin Phosphate (Januvia) 100 mg DAILY PO 07/31/16 09:00 08/30/16 08:59 08/02/16 09:00 Tamsulosin HCl (Flomax) 0.4 mg QHS PO 07/30/16 21:00 08/29/16 20:59 08/02/16 20:44 Trazodone HCl (Desyrel) 50 mg QHSP PRN PO INSOMNIA 07/30/16 22:00 08/29/16 21:59 Allergies Coded Allergies: No Known Drug Allergy (Verified Allergy, Unknown, 06/28/16) Lisinopril (Unverified Adverse Reaction, Severe, HYPOTENSION, 06/28/16) Metformin (Unverified Adverse Reaction, Severe, LOWERS KIDNEY FUNCTION, ) LESLIE BOWLES MD Aug 02, 2016 23:50
[2016-08-03 06:49] VITALS: BP 173/77
[2016-08-03] MEDS: HumaLOG INSULIN (NovoLOG) PER UNIT SC SCH ×4 (06:51→20:32)
[2016-08-03] MEDS: FUROSEMIDE 40 MG TAB PO SCH (08:19)
[2016-08-03] MEDS: MULTIVITAMINS/MINERALS THERAP 1 TAB PO SCH (08:19)
[2016-08-03] MEDS: ASCORBIC ACID 500 MG TAB PO SCH (08:19)
[2016-08-03] MEDS: ASPIRIN 81 MG ENTERIC TAB PO SCH (08:19)
[2016-08-03] MEDS: OMEPRAZOLE 20 MG CAP PO SCH (08:19)
[2016-08-03] MEDS: SITagliptin 50 MG TAB (JANUVIA) PO SCH (08:19)
[2016-08-03] MEDS: LEVEMIR (INSULIN DETEMIR) 1 UNITS/0.01ML SC SCH (08:20)
[2016-08-03 18:35] VITALS: BP 195/92
[2016-08-03] MEDS: TAMSULOSIN 0.4 MG CAP PO SCH (20:29)
[2016-08-03] MEDS: ALPRAZolam 0.25 MG TAB PO SCH (20:29)
[2016-08-03] MEDS: ROSUVASTATIN 10 MG TAB (CRESTOR) PO SCH (20:29)
[2016-08-03 21:20] VITALS: BP 176/76
[2016-08-03] MEDS ORDERED: cloNIDine 0.1 MG TAB PO ONE (21:30)
[2016-08-03 22:34] VITALS: BP 168/76
[2016-08-03 22:36] VITALS: BP 168/76
[2016-08-04] MEDS: HumaLOG INSULIN (NovoLOG) PER UNIT SC SCH ×4 (06:25→21:00)
[2016-08-04 06:37] VITALS: BP 190/82
--- NOTE | 2016-08-04 06:38 | IPNPDOC ---
[facility] Progress Note Progress Note DATE OF SERVICE: 08/03/16 SUBJECTIVE: Patient reports his mood as "realizing I just how long I've been depressed as well as anxious". Patient is cooperative with interview and discusses information received from groups. He reports great benefit from group therapy. Patient is currently being tapered off Xanax. Patient gives informed consent to start Zoloft as this provider discussed its antidepressant of choice in patients with cardiac history. Patient reports he is able to tolerate his current level of anxiety. Patient is social in the milieu. He is attending all groups. No behavioral issues on the unit. Patient informed his ARB for hypertension will be restarted as his blood pressure in the last 48 hours has been significantly higher than on admission. Patient is compliant with CPAP while asleep. Patient denies SI/HI and denies AH/VH. OBJECTIVE: VITAL SIGNS: See below. CURRENT MEDICATIONS: See below. MENTAL STATUS EXAMINATION: Patient is a [66yo male ], [looks stated age and in no acute distress.]. Speech: Is [RRR and spontaneous]. Thought processes: [Linear and goal-directed. Thought content: [Happy to be receiving help guarding this episode of worsening depression and anxiety]. Associations: [Within normal limits. Abnormal or psychotic thoughts: [No perceptual issues noted or reported] Judgment: [Fair] Insight: [Fair] Oriented to: [Time, place and person.] Recent and Remote Memory: [Immediate, short-term and long-term memory is intact] . Attention Span and Concentration: [Good]. Fund of knowledge: [ Good]. Mood: [Depressed]. Affect: [Anxious]. ASSESSMENT: 1. Adjustment disorder with mixed anxiety and depressed mood, rule out medication induced movement disorder, rule out neurocognitive disorder, rule out depressive disorder due to general medical condition: Syringomyelia, DM, CHF , LIANNA PLAN: 1. Continue Xanax taper. 2. Patient gives informed consent to start Zoloft 50 mg by mouth every morning for anxiety and depression. 3. Patient given clonidine 0.1 mg tablet 1 for systolic blood pressure greater than 190. 4. Telmisartan re-started as patient's BP significantly higher over last 48hrs than on admission. TIME SPENT: [30] minutes. Vital Signs Vital Signs Date Time Temp Pulse Resp B/P Pulse Ox O2 Delivery O2 Flow Rate FiO2 08/03/16 22:36 168/76 08/03/16 22:34 86 18 08/03/16 18:35 96.1 Room Air 07/30/16 18:19 91 Laboratory Data 24H Labs Laboratory Tests 2 08/03/16 12:30: Bedside Glucose (Misc Panel) 162H 08/03/16 16:58: Bedside Glucose (Misc Panel) 83 08/03/16 20:31: Bedside Glucose (Misc Panel) 106 08/04/16 06:03: Bedside Glucose (Misc Panel) 115 Current Medications Current Medications Medications (Trade) Dose Ordered Sig/Imelda Route PRN Reason Start Time Stop Time Status Last Admin Dose Admin Acetaminophen (Tylenol) 650 mg Q6HP PRN PO HEADACHE or DISCOMFORT 07/30/16 22:00 08/29/16 21:59 Al Hydrox/Mg Hydrox/Simethicone (Mylanta) 30 ml Q4HP PRN PO HEARTBURN/INDIGESTION 07/30/16 22:00 08/29/16 21:59 Alprazolam (Xanax) 0.125 mg BID PO 07/31/16 21:00 07/31/16 21:00 DC Alprazolam (Xanax) 0.125 mg QHS PO 07/31/16 21:00 08/04/16 23:00 08/03/16 20:29 Alprazolam (Xanax) 0.25 mg BID PO 07/30/16 21:00 07/31/16 20:23 DC 07/31/16 09:55 Alprazolam (Xanax) 0.25 mg BID PO 07/31/16 09:00 07/31/16 09:00 DC Alprazolam (Xanax) 0.5 mg BID PO 07/30/16 21:00 07/30/16 23:11 DC Ascorbic Acid (Vitamin C) 1,000 mg DAILY PO 07/31/16 09:00 08/30/16 08:59 08/03/16 08:19 Aspirin (Ecotrin) 81 mg DAILY PO 07/31/16 09:00 08/30/16 08:59 08/03/16 08:19 Fluoxetine HCl (PROzac) 20 mg DAILY PO 07/31/16 09:00 07/31/16 20:23 DC 07/31/16 09:55 Furosemide (Lasix) 40 mg DAILY PO 07/31/16 09:00 08/30/16 08:59 08/03/16 08:19 Glucagon (Glucagon) 1 mg ASDIRECTED PRN SC SEE LABEL COMMENTS 07/30/16 23:15 08/29/16 23:14 Glucose (Glucose) 16 GM ASDIRECTED PRN PO SEE LABEL COMMENTS 07/30/16 23:15 08/29/16 23:14 Home Med (Med Rec Complete!) ASDIRECTED XX 07/30/16 18:00 07/30/16 18:16 DC Insulin Detemir (Levemir Insulin) 26 units DAILY SC 07/31/16 09:00 08/30/16 08:59 08/03/16 08:20 Insulin Human Lispro (HumaLOG INSULIN) SEE PROTOCOL TABLE AC SC 07/31/16 07:30 08/30/16 07:29 08/03/16 12:35 Insulin Human Lispro (HumaLOG INSULIN) SEE PROTOCOL TABLE QHS SC 07/30/16 21:00 08/29/16 20:59 Magnesium Hydroxide (Milk Of Magnesia) 30 ml DAILYPRN PRN PO CONSTIPATION 07/30/16 22:00 08/29/16 21:59 Multivitamins (Theragram-M) 1 tab DAILY PO 07/31/16 09:00 08/30/16 08:59 08/03/16 08:19 Nitroglycerin (Nitrostat (1/ 150)) 0.4 mg Q5MP PRN SL CHEST PAIN 07/30/16 22:00 08/29/16 21:59 Omeprazole (PriLOSEC) 20 mg DAILY PO 07/31/16 09:00 08/30/16 08:59 08/03/16 08:19 Rosuvastatin Calcium (Crestor) 20 mg QHS PO 07/30/16 21:00 08/29/16 20:59 08/03/16 20:29 Sertraline HCl (Zoloft) 50 mg QAM PO 08/04/16 09:00 09/03/16 08:59 Sitagliptin Phosphate (Januvia) 100 mg DAILY PO 07/31/16 09:00 08/30/16 08:59 08/03/16 08:19 Tamsulosin HCl (Flomax) 0.4 mg QHS PO 07/30/16 21:00 08/29/16 20:59 08/03/16 20:29 Telmisartan (Micardis) 10 mg DAILY PO 08/04/16 09:00 09/03/16 08:59 Trazodone HCl (Desyrel) 50 mg QHSP PRN PO INSOMNIA 07/30/16 22:00 08/29/16 21:59 Allergies Coded Allergies: No Known Drug Allergy (Verified Allergy, Unknown, 06/28/16) Lisinopril (Unverified Adverse Reaction, Severe, HYPOTENSION, 06/28/16) Metformin (Unverified Adverse Reaction, Severe, LOWERS KIDNEY FUNCTION, ) LESLIE BOWLES MD Aug 04, 2016 06:38
[2016-08-04 07:41] VITALS: BP 160/80
[2016-08-04] MEDS: LEVEMIR (INSULIN DETEMIR) 1 UNITS/0.01ML SC SCH (08:21)
[2016-08-04] MEDS: OMEPRAZOLE 20 MG CAP PO SCH (08:21)
[2016-08-04] MEDS: ASCORBIC ACID 500 MG TAB PO SCH (08:21)
[2016-08-04] MEDS: SITagliptin 50 MG TAB (JANUVIA) PO SCH (08:21)
[2016-08-04] MEDS: MULTIVITAMINS/MINERALS THERAP 1 TAB PO SCH (08:21)
[2016-08-04] MEDS: ASPIRIN 81 MG ENTERIC TAB PO SCH (08:21)
[2016-08-04] MEDS: FUROSEMIDE 40 MG TAB PO SCH (08:21)
[2016-08-04] MEDS: TELMISARTAN 20 MG TAB PO SCH (08:22)
[2016-08-04] MEDS ORDERED: SERTRALINE HCL 50 MG TAB PO SCH (09:00)
[2016-08-04 11:30] VITALS: BP 138/60
--- NOTE | 2016-08-04 12:04 | IPNPDOC ---
Assessment/Plan Date Seen The patient was seen on 08/04/16. Problems Problems: (1) HTN (hypertension) Status: Chronic Problem Text: * lasix 40mg daily. * Telmisartan 10mg daily restarted this AM. * manual BP rechecked approximately 10:30 AM 138/60. * monitor BP * recheck BMP in AM. Plan / VTE VTE Prophylaxis Ordered?: No (ambulatory) Subjective Review of Systems CC/HPI The patient is a 66-year-old male admitted with a reason for visit of Unspecified Depressive Do. Events since last encounter I am requested to evaluate the patient for blood pressure control. Pt states home dose Telmisartan is 10 mg daily. ENT: Denies: Dysphagia, Ear Pain, Head Aches Pulmonary: Denies: Cough, Dyspnea Cardiovascular: Denies: Chest Pain, Lt Headedness, Orthopnea, Palpitations, Paroxysmal Noc. Dyspnea Gastrointestinal: Denies: Abdominal Pain, Diarrhea, Nausea, Vomiting Genitourinary: Denies: Dysuria, Frequency, Incontinence, Retention Objective Physical Examination General Exam: Positive: Alert Eye Exam: Positive: PERRLA Chest Exam: Positive: Clear to auscultation, Normal air movement Heart Exam: Positive: Normal S1, Normal S2, Rate Normal, Regular Rhythm, Negative: Murmurs, Rubs Skin Exam: Positive: Nl turgor and temperature Vital Signs/I&O Vital Signs Date Time Temp Pulse Resp B/P Pulse Ox O2 Delivery O2 Flow Rate FiO2 08/04/16 07:41 160/80 08/04/16 06:37 96.2 78 18 08/03/16 18:35 Room Air 07/30/16 18:19 91 Laboratory Data Labs 24H Laboratory Tests 2 08/03/16 12:30: Bedside Glucose (Misc Panel) 162H 08/03/16 16:58: Bedside Glucose (Misc Panel) 83 08/03/16 20:31: Bedside Glucose (Misc Panel) 106 08/04/16 06:03: Bedside Glucose (Misc Panel) 115 FSBS Laboratory Tests Test 08/03/16 12:30 08/03/16 16:58 08/03/16 20:31 08/04/16 06:03 Range/Units Bedside Glucose (Misc Panel) 162 83 106 115 80-115 MG/DL Ignacia Chaudhari Aug 04, 2016 12:04
[2016-08-04 18:00] VITALS: BP 113/56
--- NOTE | 2016-08-04 20:37 | IPNPDOC ---
[facility] Progress Note Progress Note DATE OF SERVICE: 08/04/16 HISTORY: Hydrometeorology Teacher met with patient today to evaluate treatment progress on inpatient unit. Patient indicated he is feeling "much better," reports reduced symptoms of anxiety and depression, denies suicidal and homicidal ideation, denies audiovisual hallucinations, denies urge to engage in self-injurious behavior. Patient took first dose of Zoloft this morning, indicates he is experiencing no dizziness, and presents with no tremor, also denies difficulty with speech. Patient states he feels speech is better and wants to continue with the medication, notes he also wants to continue with the benzo taper, adds he is able to manage his current level of anxiety. Patient has agreed to benzo discontinuation as of tomorrow. Due to notably elevated blood pressure over the weekend, PA has been asked to evaluate, patient indicates he is currently asymptomatic, adds he apparently neglected to inform nursing staff when he came in that he was taking cardiac medication. Cardiac medication has been restarted , vitals have been redone and are within normal limits. Patient is social in the milieu. He is attending all groups. No behavioral issues on the unit. Patient remains compliant with CPAP while asleep and indicates he has been sleeping well, denies nightmares. Patient denies appetite challenges. VITAL SIGNS: See below. NEW TEST RESULTS: Blood glucose of 119, on recheck 86. Elevated blood pressure over weekend, PA has been asked to evaluate and monitor. CURRENT MEDICATIONS: See below. MENTAL STATUS EXAMINATION: Patient is a 66 yo male , looks stated age and in no acute distress, is pleasant and cooperative, easily engaged, makes good eye contact Speech: Is of normal rate, rhythm, volume, spontaneous. Thought processes: Linear and goal-directed. Thought content: Denies suicidal and homicidal ideation, denies audiovisual hallucinations, denies urge to engage in self-injurious behavior. Associations: Circumstantial at times, no tangentiality noted today Abnormal or psychotic thoughts: No perceptual issues noted or reported Judgment: Fair Insight: Good Oriented to: Time, place and person. Recent and Remote Memory: Long-term memory excellent, mild intermittent limitation to short-term memory, generally within normal limits Attention Span and Concentration: Good. Fund of knowledge: Good. Mood: "Better." Patient appears brighter today, indicates he is experiencing reduced depression, however, continues to feel some depression, possibly some mood lability Affect: Remains blunted and masklike, but brightens at times, generally congruent with mood DIAGNOSES: Adjustment disorder with mixed anxiety and depressed mood, rule out medication induced movement disorder, rule out neurocognitive disorder, rule out depressive disorder due to general medical condition: Syringomyelia, DM, CHF , LIANNA. Will continue to monitor patient's response to Zoloft and Xanax taper. ASSESSMENT: Patient is adjusting well to unit, attend unit programming, remains motivated to complete taper off benzo. Will reduce Zoloft to 25 mg po q am to monitor for possible activation and allow his system to adjust slowly to introduction of new medication. Will then continue to titrate Zoloft as tolerated. Patient presents with no dizziness, tremor, or speech challenges today, adds he feels medication is helpful and he denies medication side effects. Will continue to monitor patient's response to antidepressant and monitor for potential medication side effects. Discharge plan remains to return home with who is able to assist patient in the home with the support of family members. Another attempt made to contact patient's by telephone to provide treatment update. PA has also been asked to evaluate appropriateness of neuro consult while patient is inpatient. MANAGEMENT PLAN: Reduce Zoloft to 25 mg po q am and continue Xanax taper. Maintain fall precautions Nursing was asked to have next PA on duty evaluate need for neuro consult and initiate if appropriate Continue to monitor need for endocrinology, cardiology, nephrology consults Maintain safety precautions Patient to attend groups and participate in unit programming to develop coping strategies Collect collateral information with patient permission to effectively manage treatment and follow-up psychiatric and medical needs Engage patient in discharge planning process and arrange meeting with support system to ensure safe discharge planning when appropriate Patient to follow up with PCM and specialist healthcare providers upon discharge TIME SPENT: 40 minutes. Vital Signs Vital Signs Date Time Temp Pulse Resp B/P Pulse Ox O2 Delivery O2 Flow Rate FiO2 08/04/16 18:00 97.0 82 18 113/56 08/03/16 18:35 Room Air 07/30/16 18:19 91 Laboratory Data 24H Labs Laboratory Tests 2 08/03/16 20:31: Bedside Glucose (Misc Panel) 106 08/04/16 06:03: Bedside Glucose (Misc Panel) 115 08/04/16 11:47: Bedside Glucose (Misc Panel) 119H 08/04/16 18:03: Bedside Glucose (Misc Panel) 86 Current Medications Current Medications Medications (Trade) Dose Ordered Sig/Imelda Route PRN Reason Start Time Stop Time Status Last Admin Dose Admin Acetaminophen (Tylenol) 650 mg Q6HP PRN PO HEADACHE or DISCOMFORT 07/30/16 22:00 08/29/16 21:59 Al Hydrox/Mg Hydrox/Simethicone (Mylanta) 30 ml Q4HP PRN PO HEARTBURN/INDIGESTION 07/30/16 22:00 08/29/16 21:59 Alprazolam (Xanax) 0.125 mg BID PO 07/31/16 21:00 07/31/16 21:00 DC Alprazolam (Xanax) 0.125 mg QHS PO 07/31/16 21:00 08/04/16 23:00 08/03/16 20:29 Alprazolam (Xanax) 0.25 mg BID PO 07/30/16 21:00 07/31/16 20:23 DC 07/31/16 09:55 Alprazolam (Xanax) 0.25 mg BID PO 07/31/16 09:00 07/31/16 09:00 DC Alprazolam (Xanax) 0.5 mg BID PO 07/30/16 21:00 07/30/16 23:11 DC Ascorbic Acid (Vitamin C) 1,000 mg DAILY PO 07/31/16 09:00 08/30/16 08:59 08/04/16 08:21 Aspirin (Ecotrin) 81 mg DAILY PO 07/31/16 09:00 08/30/16 08:59 08/04/16 08:21 Fluoxetine HCl (PROzac) 20 mg DAILY PO 07/31/16 09:00 07/31/16 20:23 DC 07/31/16 09:55 Furosemide (Lasix) 40 mg DAILY PO 07/31/16 09:00 08/30/16 08:59 08/04/16 08:21 Glucagon (Glucagon) 1 mg ASDIRECTED PRN SC SEE LABEL COMMENTS 07/30/16 23:15 08/29/16 23:14 Glucose (Glucose) 16 GM ASDIRECTED PRN PO SEE LABEL COMMENTS 07/30/16 23:15 08/29/16 23:14 Home Med (Med Rec Complete!) ASDIRECTED XX 07/30/16 18:00 07/30/16 18:16 DC Insulin Detemir (Levemir Insulin) 26 units DAILY SC 07/31/16 09:00 08/30/16 08:59 08/04/16 08:21 Insulin Human Lispro (HumaLOG INSULIN) SEE PROTOCOL TABLE AC SC 07/31/16 07:30 08/30/16 07:29 08/04/16 11:49 Insulin Human Lispro (HumaLOG INSULIN) SEE PROTOCOL TABLE QHS SC 07/30/16 21:00 08/29/16 20:59 Magnesium Hydroxide (Milk Of Magnesia) 30 ml DAILYPRN PRN PO CONSTIPATION 07/30/16 22:00 08/29/16 21:59 Multivitamins (Theragram-M) 1 tab DAILY PO 07/31/16 09:00 08/30/16 08:59 08/04/16 08:21 Nitroglycerin (Nitrostat (1/ 150)) 0.4 mg Q5MP PRN SL CHEST PAIN 07/30/16 22:00 08/29/16 21:59 Omeprazole (PriLOSEC) 20 mg DAILY PO 07/31/16 09:00 08/30/16 08:59 08/04/16 08:21 Rosuvastatin Calcium (Crestor) 20 mg QHS PO 07/30/16 21:00 08/29/16 20:59 08/03/16 20:29 Sertraline HCl (Zoloft) 50 mg QAM PO 08/04/16 09:00 09/03/16 08:59 08/04/16 08:21 Sitagliptin Phosphate (Januvia) 100 mg DAILY PO 07/31/16 09:00 08/30/16 08:59 08/04/16 08:21 Tamsulosin HCl (Flomax) 0.4 mg QHS PO 07/30/16 21:00 08/29/16 20:59 08/03/16 20:29 Telmisartan (Micardis) 10 mg DAILY PO 08/04/16 09:00 09/03/16 08:59 08/04/16 08:22 Trazodone HCl (Desyrel) 50 mg QHSP PRN PO INSOMNIA 07/30/16 22:00 08/29/16 21:59 Allergies Coded Allergies: No Known Drug Allergy (Verified Allergy, Unknown, 06/28/16) Lisinopril (Unverified Adverse Reaction, Severe, HYPOTENSION, 06/28/16) Metformin (Unverified Adverse Reaction, Severe, LOWERS KIDNEY FUNCTION, ) Emilee Mcconnell Aug 04, 2016 20:37
[2016-08-04] MEDS: ROSUVASTATIN 10 MG TAB (CRESTOR) PO SCH (21:04)
[2016-08-04] MEDS: TAMSULOSIN 0.4 MG CAP PO SCH (21:04)
[2016-08-04] MEDS: ALPRAZolam 0.25 MG TAB PO SCH (21:05)
[2016-08-05 06:32] VITALS: BP 138/76
[2016-08-05] MEDS: HumaLOG INSULIN (NovoLOG) PER UNIT SC SCH ×4 (07:30→20:38)
[2016-08-05 07:41] LABS: ANION GAP 9 MEQ/L (8-16); BLOOD UREA NITROGEN 31 MG/DL (7-18); CALCIUM LEVEL 9.2 MG/DL (8.8-10.2); CARBON DIOXIDE LEVEL 28 MEQ/L (21-32); CHLORIDE LEVEL 103 MEQ/L (98-107); CREATININE FOR GFR 1.23 MG/DL (0.70-1.30); GLOMERULAR FILTRATION RATE > 60.0 (>49); GLUCOSE, FASTING 91 MG/DL (80-110); POTASSIUM SERUM 4.6 MEQ/L (3.5-5.1); SODIUM LEVEL 140 MEQ/L (136-145)
[2016-08-05] MEDS: LEVEMIR (INSULIN DETEMIR) 1 UNITS/0.01ML SC SCH (08:26)
[2016-08-05] MEDS: TELMISARTAN 20 MG TAB PO SCH (08:26)
[2016-08-05] MEDS: FUROSEMIDE 40 MG TAB PO SCH (08:26)
[2016-08-05] MEDS: SITagliptin 50 MG TAB (JANUVIA) PO SCH (08:26)
[2016-08-05] MEDS: MULTIVITAMINS/MINERALS THERAP 1 TAB PO SCH (08:26)
[2016-08-05] MEDS: ASCORBIC ACID 500 MG TAB PO SCH (08:26)
[2016-08-05] MEDS: ASPIRIN 81 MG ENTERIC TAB PO SCH (08:27)
[2016-08-05] MEDS: SERTRALINE HCL 50 MG TAB PO SCH (08:27)
[2016-08-05] MEDS: OMEPRAZOLE 20 MG CAP PO SCH (08:27)
--- NOTE | 2016-08-05 11:14 | IPNPDOC ---
[facility] Progress Note Progress Note DATE OF SERVICE: 08/05/16 HISTORY: New Car Make Ready Worker met with patient today to evaluate treatment progress on inpatient unit. Patient indicated he continues to feel "better," notes he does not feel as well as he did yesterday at the higher dose of Zoloft. Patient also indicates that he does not feel as energized as he did at the higher dose of Zoloft and informs teletypewriter operator he did not sleep well last night due to feeling "ramped up" at end of day. Patient reports reduced energy level this morning due to difficulty with sleep, notes energy level is now normal and stable. Reports continues to report reduced symptoms of anxiety and depression, denies suicidal and homicidal ideation, denies audiovisual hallucinations, denies urge to engage in self-injurious behavior. Patient denies symptoms of dizziness, presents with no tremor, and denies speech challenges. Patient indicates he wants to continue with medication trial and discontinuation of benzodiazepine, indicates current anxiety symptoms are manageable and agrees to alert staff if they become unmanageable. PA continues to monitor patient's thought pressure and blood glucose. Patient remained social and milieu, is attending groups, and indicates he feels he is benefiting from unit programming. Patient reports appetite is stable and is compliant with CPAP while asleep, denies nightmares symptoms. Addendum: New Car Make Ready Worker spoke with via telephone to provide treatment update and to recommend that in future the neurologist be made aware of medication changes which may impact patient's neurocognitive functioning. VITAL SIGNS: See below. NEW TEST RESULTS: Glucose 93, BUN elevated Blood glucose of 119, on recheck 86. Elevated blood pressure over weekend, PA has been asked to evaluate and monitor. PA has evaluated need for neuro consult during inpatient stay, has recommended follow-up with outpatient neurologist within 1 week of discharge. Relevant medical history: Syringomyelia (diagnosed 33 years ago), diabetes mellitus - controlled, CHF, LIANNA/CPAP, CAD, GERD, BPH, hypercholesterolemia, unsteady gait and ambulates with FWW. Patient sees a kidney specialist every 6 months and sees a neurologist, Dr. Bryant, approximately once per year, has not seen Dr. Bryant since prior to starting Prozac and Xanax. Family medicine MD, Otilia Hamilton, prescribed Prozac and Xanax. 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 Patient also reports incident involving lisinopril prescribed 5 years ago resulted in fall and problems with kidney function. Patient denies history of seizure, reports one incident of head injury in 2007 as a result of a fall, denies concussion. CURRENT MEDICATIONS: See below. MENTAL STATUS EXAMINATION: Patient is a 66 yo male , looks stated age and in no acute distress, is pleasant and cooperative, easily engaged, makes good eye contact, ambulates with unsteady gait, safely utilizes front wheel walker Speech: Is of normal rate, rhythm, volume, spontaneous. Thought processes: Linear and goal-directed. Thought content: Denies suicidal and homicidal ideation, denies audiovisual hallucinations, denies urge to engage in self-injurious behavior. Associations: Less circumstantial, no tangentiality noted today Abnormal or psychotic thoughts: No perceptual issues noted or reported Judgment: Fair Insight: Good Oriented to: Time, place and person. Recent and Remote Memory: Long-term memory very good, mild intermittent limitation to short-term memory, generally within normal limits Attention Span and Concentration: Good. Fund of knowledge: Good. Mood: "Not as good as yesterday but still better than I was." Patient is less bright today, mood is level Affect: Remains blunted and masklike, but brightens at times, generally congruent with mood DIAGNOSES: Adjustment disorder with mixed anxiety and depressed mood, rule out medication induced movement disorder, rule out neurocognitive disorder, rule out depressive disorder due to general medical condition: Syringomyelia, DM, CHF , LIANNA. Will continue to monitor patient's response to Zoloft and Xanax taper. ASSESSMENT: Patient continues to adjust well to unit, is attending unit programming, remains motivated to complete taper off benzo. Patient reports feeling "ramped up" last night and was unable to fall asleep, indicates his energy level was increased yesterday, feels may be related to medication. Due to difficulty falling asleep last night patient woke up later this morning and states he felt it took him longer to complete ADLs due to fatigue related to inability to sleep last night. Will continue Zoloft 25 mg po q am to monitor for possible activation or other side effects and allow patient to adjust slowly to introduction of new medication. Will then continue to titrate Zoloft as tolerated. Patient presents with no dizziness, tremor, or speech challenges today, adds he feels medication is helpful and he denies medication side effects. Patient is aware that Xanax has been discontinued and remains in agreement noting he does not want to be taking a benzodiazepine. Discharge plan remains to return home with who is able to assist patient in the home with the support of family members. MANAGEMENT PLAN: Continue Zoloft 25 mg po q am and discontinue Xanax. Maintain fall precautions PA to continue to monitor need for endocrinology, cardiology, nephrology consults Maintain safety precautions Patient to attend groups and participate in unit programming to develop coping strategies Collect collateral information with patient permission to effectively manage treatment and follow-up psychiatric and medical needs, recommending case management services if covered by patient's insurance and outpatient psychotherapy and medication management services Engage patient in discharge planning process and arrange meeting with support system to ensure safe discharge planning when appropriate Patient to follow up with PCM and Neurologist within 3-5 days of discharge TIME SPENT: 25 minutes. Vital Signs Vital Signs Date Time Temp Pulse Resp B/P Pulse Ox O2 Delivery O2 Flow Rate FiO2 08/05/16 06:32 96.7 80 18 138/76 08/03/16 18:35 Room Air 07/30/16 18:19 91 Laboratory Data 24H Labs Laboratory Tests 2 08/04/16 11:47: Bedside Glucose (Misc Panel) 119H 08/04/16 18:03: Bedside Glucose (Misc Panel) 86 08/04/16 21:02: Bedside Glucose (Misc Panel) 125H 08/05/16 06:58: Anion Gap 9, Blood Urea Nitrogen 31H, Creatinine 1.23, Sodium Level 140, Potassium Level 4.6, Chloride Level 103, Carbon Dioxide Level 28, Calcium Level 9.2, Glomerular Filtration Rate > 60.0 08/05/16 07:32: Bedside Glucose (Misc Panel) 93 CBC/BMP Laboratory Tests 08/05/16 06:58 Calcium Level 9.2 Current Medications Current Medications Medications (Trade) Dose Ordered Sig/Imelda Route PRN Reason Start Time Stop Time Status Last Admin Dose Admin Acetaminophen (Tylenol) 650 mg Q6HP PRN PO HEADACHE or DISCOMFORT 07/30/16 22:00 08/29/16 21:59 Al Hydrox/Mg Hydrox/Simethicone (Mylanta) 30 ml Q4HP PRN PO HEARTBURN/INDIGESTION 07/30/16 22:00 08/29/16 21:59 Alprazolam (Xanax) 0.125 mg BID PO 07/31/16 21:00 07/31/16 21:00 DC Alprazolam (Xanax) 0.125 mg QHS PO 07/31/16 21:00 08/04/16 23:00 DC 08/04/16 21:05 Alprazolam (Xanax) 0.25 mg BID PO 07/30/16 21:00 07/31/16 20:23 DC 07/31/16 09:55 Alprazolam (Xanax) 0.25 mg BID PO 07/31/16 09:00 07/31/16 09:00 DC Alprazolam (Xanax) 0.5 mg BID PO 07/30/16 21:00 07/30/16 23:11 DC Ascorbic Acid (Vitamin C) 1,000 mg DAILY PO 07/31/16 09:00 08/30/16 08:59 08/05/16 08:26 Aspirin (Ecotrin) 81 mg DAILY PO 07/31/16 09:00 08/30/16 08:59 08/05/16 08:27 Fluoxetine HCl (PROzac) 20 mg DAILY PO 07/31/16 09:00 07/31/16 20:23 DC 07/31/16 09:55 Furosemide (Lasix) 40 mg DAILY PO 07/31/16 09:00 08/30/16 08:59 08/05/16 08:26 Glucagon (Glucagon) 1 mg ASDIRECTED PRN SC SEE LABEL COMMENTS 07/30/16 23:15 08/29/16 23:14 Glucose (Glucose) 16 GM ASDIRECTED PRN PO SEE LABEL COMMENTS 07/30/16 23:15 08/29/16 23:14 Home Med (Med Rec Complete!) ASDIRECTED XX 07/30/16 18:00 07/30/16 18:16 DC Insulin Detemir (Levemir Insulin) 26 units DAILY SC 07/31/16 09:00 08/30/16 08:59 08/05/16 08:26 Insulin Human Lispro (HumaLOG INSULIN) SEE PROTOCOL TABLE AC SC 07/31/16 07:30 08/30/16 07:29 08/04/16 11:49 Insulin Human Lispro (HumaLOG INSULIN) SEE PROTOCOL TABLE QHS SC 07/30/16 21:00 08/29/16 20:59 Magnesium Hydroxide (Milk Of Magnesia) 30 ml DAILYPRN PRN PO CONSTIPATION 07/30/16 22:00 08/29/16 21:59 Multivitamins (Theragram-M) 1 tab DAILY PO 07/31/16 09:00 08/30/16 08:59 08/05/16 08:26 Nitroglycerin (Nitrostat (1/ 150)) 0.4 mg Q5MP PRN SL CHEST PAIN 07/30/16 22:00 08/29/16 21:59 Omeprazole (PriLOSEC) 20 mg DAILY PO 07/31/16 09:00 08/30/16 08:59 08/05/16 08:27 Rosuvastatin Calcium (Crestor) 20 mg QHS PO 07/30/16 21:00 08/29/16 20:59 08/04/16 21:04 Sertraline HCl (Zoloft) 25 mg QAM PO 08/05/16 09:00 09/04/16 08:59 08/05/16 08:27 Sertraline HCl (Zoloft) 50 mg QAM PO 08/04/16 09:00 08/04/16 23:01 DC 08/04/16 08:21 Sitagliptin Phosphate (Januvia) 100 mg DAILY PO 07/31/16 09:00 08/30/16 08:59 08/05/16 08:26 Tamsulosin HCl (Flomax) 0.4 mg QHS PO 07/30/16 21:00 08/29/16 20:59 08/04/16 21:04 Telmisartan (Micardis) 10 mg DAILY PO 08/04/16 09:00 09/03/16 08:59 08/05/16 08:26 Trazodone HCl (Desyrel) 50 mg QHSP PRN PO INSOMNIA 07/30/16 22:00 08/29/16 21:59 08/04/16 21:05 Allergies Coded Allergies: No Known Drug Allergy (Verified Allergy, Unknown, 06/28/16) Lisinopril (Unverified Adverse Reaction, Severe, HYPOTENSION, 06/28/16) Metformin (Unverified Adverse Reaction, Severe, LOWERS KIDNEY FUNCTION, ) Emilee Mcconnell Aug 05, 2016 11:14
[2016-08-05 18:00] VITALS: BP 115/56
[2016-08-05] MEDS: ROSUVASTATIN 10 MG TAB (CRESTOR) PO SCH (20:38)
[2016-08-05] MEDS: TAMSULOSIN 0.4 MG CAP PO SCH (20:38)
[2016-08-06] MEDS: HumaLOG INSULIN (NovoLOG) PER UNIT SC SCH ×4 (06:43→20:42)
[2016-08-06 06:44] VITALS: BP 138/60
[2016-08-06] MEDS: FUROSEMIDE 40 MG TAB PO SCH (08:19)
[2016-08-06] MEDS: LEVEMIR (INSULIN DETEMIR) 1 UNITS/0.01ML SC SCH (08:19)
[2016-08-06] MEDS: SERTRALINE HCL 50 MG TAB PO SCH (08:20)
[2016-08-06] MEDS: ASCORBIC ACID 500 MG TAB PO SCH (08:21)
[2016-08-06] MEDS: TELMISARTAN 20 MG TAB PO SCH (08:21)
[2016-08-06] MEDS: OMEPRAZOLE 20 MG CAP PO SCH (08:21)
[2016-08-06] MEDS: ASPIRIN 81 MG ENTERIC TAB PO SCH (08:21)
[2016-08-06] MEDS: MULTIVITAMINS/MINERALS THERAP 1 TAB PO SCH (08:21)
[2016-08-06] MEDS: SITagliptin 50 MG TAB (JANUVIA) PO SCH (08:21)
--- NOTE | 2016-08-06 11:29 | IPNPDOC ---
Assessment/Plan Date Seen The patient was seen on 08/06/16. Problems Problems: (1) HTN (hypertension) Status: Chronic Problem Text: * lasix 40mg daily. * Telmisartan 10mg daily (home dose). * monitor BP (2) Unsteady gait Status: Acute Problem Text: * Continue wheeled walker * Fall precautions (3) Syringomyelia Status: Chronic Problem Text: * Spoke with neurology who will see the patient- Dr Ramirez, and provide any further recommendations. * Spoke with neurosurgery, Dr Garsia, who will see the patient and provide any further recommendations. * Dr. Ady mcgee requests MRI cervical spine with CINE views which is requested and pending at this time. (4) Tremor Status: Acute Problem Text: * Neurology will see the patient and provide any further recommendations or medication adjustments regarding tremor * Benzodiazepine taper may contribute to increased tremor. Plan / VTE VTE Prophylaxis Ordered?: No (ambulatory) Subjective Review of Systems CC/HPI The patient is a 66-year-old male admitted with a reason for visit of Unspecified Depressive Do. Events since last encounter I am requested to see the patient in regards to a fall from last evening. The patient states that his CPAP machine was sitting on his bedside table. The cord was running alongside his bed and again on the other wall in his room. When he got up to go to the bathroom he did not see the cord and his foot got stuck and he tripped over the cord. He fell to the floor near the bed of his roommate. He states his right hip did slightly hit the bed however he denies any injury. He denies any right hip pain today. He denies any leg pain. He states he was seen by his son last evening who noticed more tremor of his hands and tremor of his face and lips. Objective Physical Examination General Exam: Positive: Alert Eye Exam: Positive: PERRLA Chest Exam: Positive: Clear to auscultation, Normal air movement Heart Exam: Positive: Normal S1, Normal S2, Rate Normal, Regular Rhythm, Negative: Murmurs, Rubs Skin Exam: Positive: Nl turgor and temperature Neuro Exam: Positive: Other (he ambulates with the assistance of a wheeled walker) Vital Signs/I&O Vital Signs Date Time Temp Pulse Resp B/P Pulse Ox O2 Delivery O2 Flow Rate FiO2 08/06/16 06:44 97.4 102 18 138/60 1/30/17 18:35 Room Air Laboratory Data Labs 24H Laboratory Tests 2 08/05/16 12:10: Bedside Glucose (Misc Panel) 98 08/05/16 17:02: Bedside Glucose (Misc Panel) 101 08/05/16 20:36: Bedside Glucose (Misc Panel) 112 08/06/16 06:28: Bedside Glucose (Misc Panel) 96 FSBS Laboratory Tests Test 08/05/16 12:10 08/05/16 17:02 08/05/16 20:36 08/06/16 06:28 Range/Units Bedside Glucose (Misc Panel) 98 101 112 96 80-115 MG/DL Ignacia Chaudhari Aug 06, 2016 11:29
[2016-08-06] MEDS ORDERED: hydrOXYzine 10 MG TAB PO PRN (15:30)
--- NOTE | 2016-08-06 15:54 | IPNPDOC ---
[facility] Progress Note Progress Note DATE OF SERVICE: 08/06/16 HISTORY: Weight Reduction Specialist met with patient today to evaluate treatment progress on inpatient unit. Patient indicated he feels improvement in mood and reduced anxiety from yesterday, is in agreement with Zoloft dose increase starting tomorrow morning; denies medication side effects. Patient states he feels his mood is level and he denies feeling energized, adds he slept well last night. However, patient indicates he awoke during the night which is customary for him to use the bathroom, did not see CPAP cord which was reportedly taped to floor, tripped over cord and fell. Nursing has been asked to investigate CPAP equipment arrangement and to workout system which will be safe for patient. Patient was also educated on use of call lauren and was encouraged to use if he needs assistance when he awakes during the night; patient verbalized understanding. When patient awoke during the night he denied feeling dizzy and denied symptoms of anxiety, noted she merely needed to use the bathroom. Patient denies unmanageable symptoms of anxiety at time of interaction, notes anxiety is at times higher at night, reiterates to bond underwriter he does not want anxiolytic on which he may become dependent. Patient states he is interested in trialing low dose of as needed Vistaril, was educated on potential risks and side effects of medication and was instructed to alert staff immediately if he experiences medication side effects. Patient reports level energy level this morning and indicates he did not attend morning groups due to awareness that neuro consult and MRI have been ordered and wanting to make sure he is available to providers when they come to meet with him. Patient reports current anxiety level 5/10, noting symptoms are manageable, depression 5/10, denies suicidal and homicidal ideation, denies audiovisual hallucinations, and denies urge to engage in self-injurious behavior. Patient denies symptoms of dizziness , presents with no tremor, and denies speech challenges. PA continues to monitor patient's blood pressure and blood glucose, has completed post fall evaluation, has consulted with neurology and neurosurgeon, has ordered MRI, and continues to monitor patient's physical health status. Patient remains social and milieu, is attending most groups, and continues to feel he is benefiting from unit programming. Patient reports appetite is stable and is compliant with CPAP while asleep, denies nightmares symptoms. Addendum: Weight Reduction Specialist spoke with patient's daughter to provide treatment update and to recommend that in future the neurologist be made aware of medication changes which may impact patient's neurocognitive functioning. Weight Reduction Specialist also spoke with daughter regarding concerns related to discontinuation of Xanax, recent fall, and patient not taking blood pressure medication for first 2 days while in the hospital. Weight Reduction Specialist indicated to daughter that, per nursing, B/P medication was not included in initial patient report of medication regimen, CPAP equipment related fall has been evaluated and adjustments to CPAP gear arrangements are being made to ensure patient safety, and daughter was made aware that both patient and have expressed concerns about patient's long-term use of benzodiazepine to address symptoms of anxiety. Daughter was made aware the patient has stated clearly he wants to avoid use of medication on which he may become dependent to address symptoms of anxiety. Patient's daughter is in agreement with patient undergoing neuro consult and continuing with treatment inpatient setting, was also in agreement with projected discharge timeframe of early next week. VITAL SIGNS: See below. NEW TEST RESULTS: Glucose 96, 88. Recent labs indicated BUN elevated. Patient experienced elevated blood pressure over past weekend, PA continues to monitor. PA has listed neuro and her surgeon consult, MRI has been ordered, results not yet available in [employer]. Relevant medical history: Syringomyelia (diagnosed 33 years ago), diabetes mellitus - controlled, CHF, LIANNA/CPAP, CAD, GERD, BPH, hypercholesterolemia, unsteady gait and ambulates with FWW. Patient sees a kidney specialist every 6 months and sees a neurologist, Dr. Bryant, approximately once per year, has not seen Dr. Bryant since prior to starting Prozac and Xanax. Family medicine MD, Otilia Hamilton, prescribed Prozac and Xanax. 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 Patient also reports incident involving lisinopril prescribed 5 years ago resulted in fall and problems with kidney function. Patient denies history of seizure, reports one incident of head injury in 2007 as a result of a fall, denies concussion. CURRENT MEDICATIONS: See below. MENTAL STATUS EXAMINATION: Patient is a 66 yo male, looks stated age and in no acute distress, is pleasant and cooperative, easily engaged, makes good eye contact, ambulates with unsteady gait, safely utilizes front wheel walker (with exception of faltering night last night en route to bathroom, tripped over CPAP cord). Speech: Is of normal rate, rhythm, volume, spontaneous. Thought processes: Linear and goal-directed. Thought content: Denies suicidal and homicidal ideation, denies audiovisual hallucinations, denies urge to engage in self-injurious behavior. Associations: Less circumstantial, no tangentiality noted today Abnormal or psychotic thoughts: No perceptual issues noted or reported Judgment: Fair Insight: Good Oriented to: Time, place and person. Recent and Remote Memory: Long-term memory very good, mild intermittent limitation to short-term memory, generally within normal limits Attention Span and Concentration: Good. Fund of knowledge: Good. Mood: "Better than yesterday." Patient is brighter today and mood appears level Affect: Remains generally blunted and masklike, but brightens frequently, congruent with mood DIAGNOSES: Adjustment disorder with mixed anxiety and depressed mood, rule out medication induced movement disorder, rule out neurocognitive disorder, rule out depressive disorder due to general medical condition: Syringomyelia, DM, CHF , LIANNA. Will continue to monitor patient's response to Zoloft and Xanax taper. ASSESSMENT: Patient continues to adjust well to unit, is attending unit programming, remains motivated to remain off benzo, denies experiencing unmanageable symptoms of anxiety. Patient denies sensation of feeling "ramped up ," states last night he was able to sleep, reports level mood and consistent energy level. Patient fell last night after tripping over CPAP cord, denies injury and pain today, presents with no indication of acute distress. PA has evaluated. Will continue to titrate Zoloft with dose increase to 50 mgpo q am to start tomorrow. Will continue to monitor for possible activation or other side effects and allow patient to adjust slowly to introduction of new medication dose. Patient presents with no dizziness, tremor, or speech challenges today, adds he feels medication is helpful and he denies medication side effects. Patient is aware that Xanax has been discontinued and remains in agreement no re-start, is agreeable to trialing low dose hydroxyzine PRN to address symptoms of anxiety should they become unmanageable, reiterates he does not want to be taking a benzodiazepine. Discharge plan remains to return home with who is able to assist patient in the home with the support of family members. program coordinator executive education is making arrangements for case management and outpatient psychotherapy and medication management services. Patient, patient's , and patient's daughter have been informed that projected discharge date is early next week and have verbalized agreement with plan. MANAGEMENT PLAN: Increase Zoloft to 50 mg po q am, initiate med trial hydroxyzine 10 mg po q q 6 hours PRN anxiety Maintain fall precautions Patient to undergo neuro evaluation and MRI PA to continue to monitor need for endocrinology, cardiology, nephrology consults - not indicated at this time Maintain safety precautions Patient to attend groups and participate in unit programming to develop coping strategies Collect collateral information with patient permission to effectively manage treatment and follow-up psychiatric and medical needs, recommending case management services and outpatient psychotherapy and medication management services Engage patient in discharge planning process and arrange meeting with support system to ensure safe discharge planning when appropriate Patient to follow up with PCM and Neurologist within 3-5 days of discharge TIME SPENT: 35 minutes. Vital Signs Vital Signs Date Time Temp Pulse Resp B/P Pulse Ox O2 Delivery O2 Flow Rate FiO2 08/06/16 06:44 97.4 102 18 138/60 08/03/16 18:35 Room Air Laboratory Data 24H Labs Laboratory Tests 2 08/05/16 17:02: Bedside Glucose (Misc Panel) 101 08/05/16 20:36: Bedside Glucose (Misc Panel) 112 08/06/16 06:28: Bedside Glucose (Misc Panel) 96 08/06/16 11:57: Bedside Glucose (Misc Panel) 88 Current Medications Current Medications Medications (Trade) Dose Ordered Sig/Imelda Route PRN Reason Start Time Stop Time Status Last Admin Dose Admin Acetaminophen (Tylenol) 650 mg Q6HP PRN PO HEADACHE or DISCOMFORT 07/30/16 22:00 08/29/16 21:59 Al Hydrox/Mg Hydrox/Simethicone (Mylanta) 30 ml Q4HP PRN PO HEARTBURN/INDIGESTION 07/30/16 22:00 08/29/16 21:59 Alprazolam (Xanax) 0.125 mg BID PO 07/31/16 21:00 07/31/16 21:00 DC Alprazolam (Xanax) 0.125 mg QHS PO 07/31/16 21:00 08/04/16 23:00 DC 08/04/16 21:05 Alprazolam (Xanax) 0.25 mg BID PO 07/30/16 21:00 07/31/16 20:23 DC 07/31/16 09:55 Alprazolam (Xanax) 0.25 mg BID PO 07/31/16 09:00 07/31/16 09:00 DC Alprazolam (Xanax) 0.5 mg BID PO 07/30/16 21:00 07/30/16 23:11 DC Ascorbic Acid (Vitamin C) 1,000 mg DAILY PO 07/31/16 09:00 08/30/16 08:59 08/06/16 08:21 Aspirin (Ecotrin) 81 mg DAILY PO 07/31/16 09:00 08/30/16 08:59 08/06/16 08:21 Fluoxetine HCl (PROzac) 20 mg DAILY PO 07/31/16 09:00 07/31/16 20:23 DC 07/31/16 09:55 Furosemide (Lasix) 40 mg DAILY PO 07/31/16 09:00 08/30/16 08:59 08/06/16 08:19 Glucagon (Glucagon) 1 mg ASDIRECTED PRN SC SEE LABEL COMMENTS 07/30/16 23:15 08/29/16 23:14 Glucose (Glucose) 16 GM ASDIRECTED PRN PO SEE LABEL COMMENTS 07/30/16 23:15 08/29/16 23:14 Home Med (Med Rec Complete!) ASDIRECTED XX 07/30/16 18:00 07/30/16 18:16 DC Hydroxyzine HCl (Vistaril) 10 mg Q6HP PRN PO ANXIETY 08/06/16 15:30 09/05/16 15:29 Insulin Detemir (Levemir Insulin) 26 units DAILY SC 07/31/16 09:00 08/30/16 08:59 08/06/16 08:19 Insulin Human Lispro (HumaLOG INSULIN) SEE PROTOCOL TABLE AC SC 07/31/16 07:30 08/30/16 07:29 08/05/16 17:03 Insulin Human Lispro (HumaLOG INSULIN) SEE PROTOCOL TABLE QHS SC 07/30/16 21:00 08/29/16 20:59 Magnesium Hydroxide (Milk Of Magnesia) 30 ml DAILYPRN PRN PO CONSTIPATION 07/30/16 22:00 08/29/16 21:59 Multivitamins (Theragram-M) 1 tab DAILY PO 07/31/16 09:00 08/30/16 08:59 08/06/16 08:21 Nitroglycerin (Nitrostat (1/ 150)) 0.4 mg Q5MP PRN SL CHEST PAIN 07/30/16 22:00 08/29/16 21:59 Omeprazole (PriLOSEC) 20 mg DAILY PO 07/31/16 09:00 08/30/16 08:59 08/06/16 08:21 Rosuvastatin Calcium (Crestor) 20 mg QHS PO 07/30/16 21:00 08/29/16 20:59 08/05/16 20:38 Sertraline HCl (Zoloft) 25 mg QAM PO 08/05/16 09:00 08/06/16 14:07 DC 08/06/16 08:20 Sertraline HCl (Zoloft) 50 mg QAM PO 08/04/16 09:00 08/04/16 23:01 DC 08/04/16 08:21 Sertraline HCl (Zoloft) 50 mg QAM PO 08/07/16 09:00 09/06/16 08:59 Sitagliptin Phosphate (Januvia) 100 mg DAILY PO 07/31/16 09:00 08/30/16 08:59 08/06/16 08:21 Tamsulosin HCl (Flomax) 0.4 mg QHS PO 07/30/16 21:00 08/29/16 20:59 08/05/16 20:38 Telmisartan (Micardis) 10 mg DAILY PO 08/04/16 09:00 09/03/16 08:59 08/06/16 08:21 Trazodone HCl (Desyrel) 50 mg QHSP PRN PO INSOMNIA 07/30/16 22:00 08/06/16 15:24 DC 08/04/16 21:05 Allergies Coded Allergies: No Known Drug Allergy (Verified Allergy, Unknown, 06/28/16) Lisinopril (Unverified Adverse Reaction, Severe, HYPOTENSION, 06/28/16) Metformin (Unverified Adverse Reaction, Severe, LOWERS KIDNEY FUNCTION, ) Emilee Mcconnell Aug 06, 2016 15:54
--- NOTE | 2016-08-06 16:23 | REP ---
MRI CERVICAL SPINE WITHOUT CONTRAST: 08/06/2016. 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 Sagittal T1, T2 and STIR images with axial T1 and T2 images provided. The exam is significantly limited by motion artifact. Some images are repeated and despite this there is still motion artifact. Technologist states the patient was unable to fully cooperate and this represents best effort from him and several repeat scans. Findings: The cervical lordosis is maintained in the upper cervical spine with straightening in the lower cervical spine noted. The vertebral body heights and marrow signal are normal. The disc space height was grossly intact. There is loss of disc water signal at all levels except at C5-6. Very limited evaluation of the central canal is evident, however, there is an obvious syrinx extending from the mid aspect of the dens of C2 through the entire visualized portions of the upper thoracic cord down to the T4 level. Maximum thickness of the syrinx about 3.8 mm is noted. I cannot determine the presence of stenosis, disc bulges or herniation. Partial fusion of C5-6 vertebral bodies are as described in a report from outside exam 10/11/2015 at [facility]; images not available at the time of this inpatient examination. 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 This is consistent with Chiari I malformation. Impression: 1. Syrinx extending from C2 through the inferior margin of the field at the T4 level. However, due to motion artifact, there is not much of this exam that is diagnostic. Signed by Konrad Bland MD 08/06/2016 05:09 P
[2016-08-06 18:00] VITALS: BP 118/53
[2016-08-06] MEDS: TAMSULOSIN 0.4 MG CAP PO SCH (20:40)
[2016-08-06] MEDS: ROSUVASTATIN 10 MG TAB (CRESTOR) PO SCH (20:41)
[2016-08-07] MEDS: HumaLOG INSULIN (NovoLOG) PER UNIT SC SCH ×4 (06:35→20:33)
[2016-08-07 06:43] VITALS: BP 146/84
[2016-08-07] MEDS: SERTRALINE HCL 50 MG TAB PO SCH (09:04)
[2016-08-07] MEDS: OMEPRAZOLE 20 MG CAP PO SCH (09:04)
[2016-08-07] MEDS: FUROSEMIDE 40 MG TAB PO SCH (09:04)
[2016-08-07] MEDS: MULTIVITAMINS/MINERALS THERAP 1 TAB PO SCH (09:04)
[2016-08-07] MEDS: LEVEMIR (INSULIN DETEMIR) 1 UNITS/0.01ML SC SCH (09:05)
[2016-08-07] MEDS: ASCORBIC ACID 500 MG TAB PO SCH (09:05)
[2016-08-07] MEDS: ASPIRIN 81 MG ENTERIC TAB PO SCH (09:05)
[2016-08-07] MEDS: TELMISARTAN 20 MG TAB PO SCH (09:05)
[2016-08-07] MEDS: SITagliptin 50 MG TAB (JANUVIA) PO SCH (09:05)
--- NOTE | 2016-08-07 13:32 | IPNPDOC ---
[facility] Progress Note Progress Note DATE OF SERVICE: 08/07/16 HISTORY: Plate Filler met with patient today to evaluate treatment progress on inpatient unit. Patient was observed to be resting in bed between groups, sat up readily to engage with ticket writer and stated, "this is the best I've felt in 3 years." Patient denied symptoms of anxiety and depression, indicated he feels his mood is level, denies suicidal and homicidal ideation, denies audiovisual hallucinations, and denies urge to engage in self-injurious behavior. Patient states Zoloft is helping to reduce symptoms of anxiety and depression and he denied medication side effects, further denied challenges related to speech, dizziness, and presented with no hand tremor this morning. Patient stated he slept through the night last night, denied challenges related to latency or maintenance, denied nightmares. Patient reported that CPAP gear had been set up in a way that was satisfactory to him and which presented no safety risk. Patient was reeducated on use of call lauren and was encouraged to use if he needs assistance if he awakens during the night; patient verbalizes understanding. Patient remains aware that he has hydroxyzine available to him should symptoms of anxiety re-surface; has not needed to use medication as yet and reiterates to ticket writer he does not want anxiolytic on which he may become dependent. Patient reports improved energy level this morning, states he feels his balance has improved, denies dizziness. PA continues to monitor patient's blood pressure and blood glucose. Patient underwent MRI and neuro surgeon evaluation yesterday, informs ticket writer he is not interested in neurosurgery at this time. Patient was also evaluated by neurologist, results not yet available in [facility]. Patient remains social and milieu, is attending groups, and continues to feel he is benefiting from unit programming. Patient reports appetite is stable and denies physical pain. Addendum: Plate Filler provided treatment update to patient's and informed of tentative discharge planned for Wednesday. salon coordinator has been asked to communicate details of follow-up treatment to ; verbalize understanding of and agreement with discharge plan. Second Addendum: New med order for Primidone noted in EMR. Patient requested med order be discontinued for time being stating he does not have tremor and does not want to start new med until has met with Neurologist after discharge which is anticipated for Wednesday. VITAL SIGNS: See below. PA is continuing to monitor, vitals ordered q 6 hrs. NEW TEST RESULTS: Glucose 96. Recent labs indicated BUN elevated. Patient experienced elevated blood pressure over past weekend, PA continues to monitor. PA has listed neuro and her surgeon consult, MRI has been ordered, results not yet available in [facility]. Relevant medical history: Syringomyelia (diagnosed 33 years ago), diabetes mellitus - controlled, CHF, LIANNA/CPAP, CAD, GERD, BPH, hypercholesterolemia, unsteady gait and ambulates with FWW. Patient sees a kidney specialist every 6 months and sees a neurologist, Dr. Bryant, approximately once per year, has not seen Dr. Bryant since prior to starting Prozac and Xanax. Family medicine MD, Otilia Hamilton, prescribed Prozac and Xanax. 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 Patient also reports incident involving lisinopril prescribed 5 years ago resulted in fall and problems with kidney function. Patient denies history of seizure, reports one incident of head injury in 2007 as a result of a fall, denies concussion. CURRENT MEDICATIONS: See below. MENTAL STATUS EXAMINATION: Patient is a 66 yo male, looks stated age and in no acute distress, is pleasant and cooperative, easily engaged, makes good eye contact, ambulates with unsteady gait, safely utilizes front wheel walker (with exception of falling two nights ago en route to bathroom, tripped over CPAP cord). Speech: Is of normal rate, rhythm, volume, spontaneous. Thought processes: Linear and goal-directed. Thought content: Denies suicidal and homicidal ideation, denies audiovisual hallucinations, denies urge to engage in self-injurious behavior. Associations: Less circumstantial, no tangentiality noted today Abnormal or psychotic thoughts: No perceptual issues noted or reported Judgment: Good Insight: Good Oriented to: Time, place and person. Recent and Remote Memory: Long-term memory very good, mild intermittent limitation to short-term memory, generally within normal limits Attention Span and Concentration: Good. Fund of knowledge: Good. Mood: "Better every day." Patient is brighter today and mood appears level, denies agitation or irritability Affect: Remains constricted and masklike but brightens frequently, congruent with mood DIAGNOSES: Adjustment disorder with mixed anxiety and depressed mood, rule out medication induced movement disorder, rule out neurocognitive disorder, rule out depressive disorder due to general medical condition: Syringomyelia, DM, CHF , LIANNA. Will continue to monitor patient's response to Zoloft and Xanax taper. ASSESSMENT: Patient continues to adjust well to unit, is attending unit programming, remains motivated to remain off benzo, denies experiencing unmanageable symptoms of anxiety. Patient continues to deny sensation of feeling "ramped up," notes he slept well last night, reports ongoing level mood and consistent energy level. Will continue to monitor patient's response to increased Zoloft dose including possible activation or other side effects. Patient presents with no dizziness, tremor, or speech challenges today, adds he feels medication is helpful and he denies medication side effects. Patient is aware that Xanax has been discontinued and remains in agreement with no re-start , is aware he has hydroxyzine available to him if needed to address symptoms of anxiety. Discharge plan remains to return home with who is able to assist patient in the home with the support of family members. salon coordinator is making arrangements for case management and outpatient psychotherapy and medication management services. Patient and patient's have been informed that projected discharge date is set for Wednesday and have verbalized agreement with plan. MANAGEMENT PLAN: Continue Zoloft 50 mg po q am, continue hydroxyzine 10 mg po q q 6 hours PRN anxiety Maintain fall precautions Patient to undergo neuro evaluation and MRI - treatment goal completed PA to continue to monitor need for endocrinology, cardiology, nephrology consults - not indicated at this time, will recommend post discharge as indicated Maintain safety precautions Patient to attend groups and participate in unit programming to develop coping strategies Coordinate follow-up psychiatric and medical needs, recommending case management services and outpatient psychotherapy and medication management services Engage patient in discharge planning process and arrange meeting with support system to ensure safe discharge planning when appropriate Patient to follow up with PCM and Neurologist within 3-5 days of discharge and to discuss Rx for Primidone Rx'd 08/07/16 by Neurologist who completed inpatient consult TIME SPENT: 35 minutes. Vital Signs Vital Signs Date Time Temp Pulse Resp B/P Pulse Ox O2 Delivery O2 Flow Rate FiO2 08/07/16 06:43 95.8 100 18 146/84 08/03/16 18:35 Room Air Laboratory Data 24H Labs Laboratory Tests 2 08/06/16 17:41: Bedside Glucose (Misc Panel) 165H 08/06/16 20:40: Bedside Glucose (Misc Panel) 119H 08/07/16 06:31: Bedside Glucose (Misc Panel) 96 Current Medications Current Medications Medications (Trade) Dose Ordered Sig/Imelda Route PRN Reason Start Time Stop Time Status Last Admin Dose Admin Acetaminophen (Tylenol) 650 mg Q6HP PRN PO HEADACHE or DISCOMFORT 07/30/16 22:00 08/29/16 21:59 Al Hydrox/Mg Hydrox/Simethicone (Mylanta) 30 ml Q4HP PRN PO HEARTBURN/INDIGESTION 07/30/16 22:00 08/29/16 21:59 Alprazolam (Xanax) 0.125 mg BID PO 07/31/16 21:00 07/31/16 21:00 DC Alprazolam (Xanax) 0.125 mg QHS PO 07/31/16 21:00 08/04/16 23:00 DC 08/04/16 21:05 Alprazolam (Xanax) 0.25 mg BID PO 07/30/16 21:00 07/31/16 20:23 DC 07/31/16 09:55 Alprazolam (Xanax) 0.25 mg BID PO 07/31/16 09:00 07/31/16 09:00 DC Alprazolam (Xanax) 0.5 mg BID PO 07/30/16 21:00 07/30/16 23:11 DC Ascorbic Acid (Vitamin C) 1,000 mg DAILY PO 07/31/16 09:00 08/30/16 08:59 08/07/16 09:05 Aspirin (Ecotrin) 81 mg DAILY PO 07/31/16 09:00 08/30/16 08:59 08/07/16 09:05 Fluoxetine HCl (PROzac) 20 mg DAILY PO 07/31/16 09:00 07/31/16 20:23 DC 07/31/16 09:55 Furosemide (Lasix) 40 mg DAILY PO 07/31/16 09:00 08/30/16 08:59 08/07/16 09:04 Glucagon (Glucagon) 1 mg ASDIRECTED PRN SC SEE LABEL COMMENTS 07/30/16 23:15 08/29/16 23:14 Glucose (Glucose) 16 GM ASDIRECTED PRN PO SEE LABEL COMMENTS 07/30/16 23:15 08/29/16 23:14 Home Med (Med Rec Complete!) ASDIRECTED XX 07/30/16 18:00 07/30/16 18:16 DC Hydroxyzine HCl (Vistaril) 10 mg Q6HP PRN PO ANXIETY 08/06/16 15:30 09/05/16 15:29 Insulin Detemir (Levemir Insulin) 26 units DAILY SC 07/31/16 09:00 08/30/16 08:59 08/07/16 09:05 Insulin Human Lispro (HumaLOG INSULIN) SEE PROTOCOL TABLE AC SC 07/31/16 07:30 08/30/16 07:29 08/07/16 11:57 Insulin Human Lispro (HumaLOG INSULIN) SEE PROTOCOL TABLE QHS SC 07/30/16 21:00 08/29/16 20:59 Magnesium Hydroxide (Milk Of Magnesia) 30 ml DAILYPRN PRN PO CONSTIPATION 07/30/16 22:00 08/29/16 21:59 Multivitamins (Theragram-M) 1 tab DAILY PO 07/31/16 09:00 08/30/16 08:59 08/07/16 09:04 Nitroglycerin (Nitrostat (1/ 150)) 0.4 mg Q5MP PRN SL CHEST PAIN 07/30/16 22:00 08/29/16 21:59 Omeprazole (PriLOSEC) 20 mg DAILY PO 07/31/16 09:00 08/30/16 08:59 08/07/16 09:04 Primidone (Mysoline) 25 mg BID PO 08/07/16 21:00 09/06/16 20:59 Rosuvastatin Calcium (Crestor) 20 mg QHS PO 07/30/16 21:00 08/29/16 20:59 08/06/16 20:41 Sertraline HCl (Zoloft) 25 mg QAM PO 08/05/16 09:00 08/06/16 14:07 DC 08/06/16 08:20 Sertraline HCl (Zoloft) 50 mg QAM PO 08/04/16 09:00 08/04/16 23:01 DC 08/04/16 08:21 Sertraline HCl (Zoloft) 50 mg QAM PO 08/07/16 09:00 09/06/16 08:59 08/07/16 09:04 Sitagliptin Phosphate (Januvia) 100 mg DAILY PO 07/31/16 09:00 08/30/16 08:59 08/07/16 09:05 Tamsulosin HCl (Flomax) 0.4 mg QHS PO 07/30/16 21:00 08/29/16 20:59 08/06/16 20:40 Telmisartan (Micardis) 10 mg DAILY PO 08/04/16 09:00 09/03/16 08:59 08/07/16 09:05 Trazodone HCl (Desyrel) 50 mg QHSP PRN PO INSOMNIA 07/30/16 22:00 08/06/16 15:24 DC 08/04/16 21:05 Allergies Coded Allergies: No Known Drug Allergy (Verified Allergy, Unknown, 06/28/16) Lisinopril (Unverified Adverse Reaction, Severe, HYPOTENSION, 06/28/16) Metformin (Unverified Adverse Reaction, Severe, LOWERS KIDNEY FUNCTION, ) Emilee Mcconnell Aug 07, 2016 13:32
[2016-08-07 18:00] VITALS: BP 132/62
[2016-08-07] MEDS: TAMSULOSIN 0.4 MG CAP PO SCH (20:30)
[2016-08-07] MEDS: ROSUVASTATIN 10 MG TAB (CRESTOR) PO SCH (20:31)
[2016-08-07] MEDS ORDERED: PRIMIDONE 25MG PER 1/2 TABLET PO SCH (21:00)
[2016-08-08] MEDS: HumaLOG INSULIN (NovoLOG) PER UNIT SC SCH ×4 (06:21→20:17)
[2016-08-08 06:40] VITALS: BP 147/63
[2016-08-08] MEDS: OMEPRAZOLE 20 MG CAP PO SCH (08:11)
[2016-08-08] MEDS: SITagliptin 50 MG TAB (JANUVIA) PO SCH (08:11)
[2016-08-08] MEDS: ASPIRIN 81 MG ENTERIC TAB PO SCH (08:11)
[2016-08-08] MEDS: ASCORBIC ACID 500 MG TAB PO SCH (08:11)
[2016-08-08] MEDS: SERTRALINE HCL 50 MG TAB PO SCH (08:11)
[2016-08-08] MEDS: TELMISARTAN 20 MG TAB PO SCH (08:11)
[2016-08-08] MEDS: MULTIVITAMINS/MINERALS THERAP 1 TAB PO SCH (08:11)
[2016-08-08] MEDS: FUROSEMIDE 40 MG TAB PO SCH (08:11)
[2016-08-08] MEDS: LEVEMIR (INSULIN DETEMIR) 1 UNITS/0.01ML SC SCH (08:12)
[2016-08-08 10:00] VITALS: BP 132/62
[2016-08-08 14:00] VITALS: BP 114/56
[2016-08-08 18:00] VITALS: BP 129/57
[2016-08-08 18:36] VITALS: BP 119/56
[2016-08-08] MEDS: ROSUVASTATIN 10 MG TAB (CRESTOR) PO SCH (20:16)
[2016-08-08] MEDS: TAMSULOSIN 0.4 MG CAP PO SCH (20:16)
[2016-08-08 21:44] VITALS: BP 140/70
[2016-08-09 06:25] VITALS: BP 142/75
[2016-08-09] MEDS: HumaLOG INSULIN (NovoLOG) PER UNIT SC SCH ×4 (07:03→20:50)
[2016-08-09] MEDS: LEVEMIR (INSULIN DETEMIR) 1 UNITS/0.01ML SC SCH (08:23)
[2016-08-09] MEDS: FUROSEMIDE 40 MG TAB PO SCH (08:23)
[2016-08-09] MEDS: MULTIVITAMINS/MINERALS THERAP 1 TAB PO SCH (08:23)
[2016-08-09] MEDS: OMEPRAZOLE 20 MG CAP PO SCH (08:24)
[2016-08-09] MEDS: SERTRALINE HCL 50 MG TAB PO SCH (08:24)
[2016-08-09] MEDS: ASCORBIC ACID 500 MG TAB PO SCH (08:24)
[2016-08-09] MEDS: ASPIRIN 81 MG ENTERIC TAB PO SCH (08:24)
[2016-08-09] MEDS: TELMISARTAN 20 MG TAB PO SCH (08:24)
[2016-08-09] MEDS: SITagliptin 50 MG TAB (JANUVIA) PO SCH (08:24)
[2016-08-09 10:00] VITALS: BP 129/58
[2016-08-09 14:00] VITALS: BP 108/53
[2016-08-09 18:00] VITALS: BP 134/61
[2016-08-09] MEDS: ROSUVASTATIN 10 MG TAB (CRESTOR) PO SCH (20:47)
[2016-08-09] MEDS: TAMSULOSIN 0.4 MG CAP PO SCH (20:47)
[2016-08-09] MEDS: PRIMIDONE 25MG PER 1/2 TABLET PO SCH (20:47)
[2016-08-10 06:32] VITALS: BP 135/64
[2016-08-10] MEDS: HumaLOG INSULIN (NovoLOG) PER UNIT SC SCH ×2 (06:36→11:51)
[2016-08-10] MEDS: LEVEMIR (INSULIN DETEMIR) 1 UNITS/0.01ML SC SCH (09:03)
[2016-08-10] MEDS: TELMISARTAN 20 MG TAB PO SCH (09:09)
[2016-08-10] MEDS: SITagliptin 50 MG TAB (JANUVIA) PO SCH (09:09)
[2016-08-10] MEDS: ASCORBIC ACID 500 MG TAB PO SCH (09:09)
[2016-08-10] MEDS: OMEPRAZOLE 20 MG CAP PO SCH (09:10)
[2016-08-10] MEDS: FUROSEMIDE 40 MG TAB PO SCH (09:10)
[2016-08-10] MEDS: SERTRALINE HCL 50 MG TAB PO SCH (09:10)
[2016-08-10] MEDS: ASPIRIN 81 MG ENTERIC TAB PO SCH (09:10)
[2016-08-10] MEDS: PRIMIDONE 25MG PER 1/2 TABLET PO SCH (09:10)
[2016-08-10] MEDS: MULTIVITAMINS/MINERALS THERAP 1 TAB PO SCH (09:10)
[2016-08-10] MEDS ORDERED: SERT-141 PO (10:13)
[2016-08-10] MEDS ORDERED: HYDR10T PO (10:13)
[2016-08-10] MEDS ORDERED: MYSO50TA5 PO (10:30)
[2016-08-10] MEDS ORDERED: MICA5TAB PO (12:17)
--- NOTE | 2016-08-10 12:30 | REP ---
MR CINE VIEWS: HISTORY: Syrinx. A 2D phase contrast CSF flow study was performed with a velocity ___encoding of 10 cm/s. The examination is limited secondary to motion. CSF flow is present in the prepontine and medullary cisterns, aqueduct of Sylvius and fourth ventricle. CSF flow is present in the anterior subarachnoid space at the cervicomedullary junction. There is no definite CSF flow in the outlet foramina or in the subarachnoid space posterior to the cerebellar tonsils or in the posterior subarachnoid space at the cervicomedullary junction. Pulsatile CSF flow is present in the syrinx. IMPRESSION: CSF flow study as described above. Signed by Hank Demarco MD 08/10/2016 12:50 P
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
[2016-08-11] MEDS ORDERED: PRIMIDONE 50 MG TAB PO SCH (09:00)
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
== END 2016-08-10 13:50 | disposition home or self-care (01) | DRG 882 ==
LOC: M ED 13:31 → M PSY 18:14
PROVIDERS: ADMIT Psychiatry & Neurology Psychiatry; ATTEND Psychiatry & Neurology Psychiatry
DX: F43.23 Adjustment disorder with mixed anxiety and depressed mood (principal); G95.0 Syringomyelia and syringobulbia; G47.33 Obstructive sleep apnea (adult) (pediatric); G25.70 Drug induced movement disorder, unspecified; E11.9 Type 2 diabetes mellitus without complications; I50.9 Heart failure, unspecified; E78.5 Hyperlipidemia, unspecified; I10 Essential (primary) hypertension; I25.10 Atherosclerotic heart disease of native coronary artery without angina pectoris; K21.9 Gastro-esophageal reflux disease without esophagitis; N40.0 Benign prostatic hyperplasia without lower urinary tract symptoms; Z79.899 Other long term (current) drug therapy; R26.89 Other abnormalities of gait and mobility

== ENCOUNTER → 2016-10-23 | Outpatient (REF) | payer MEDICARE, BC, OTHER ==
[~2016-10-23] MED LIST changes: +HYDR10T PO; +MICA5TAB PO; +MYSO50TA5 PO; +SERT50TA PO
[2016-10-27 14:18] LABS: VITAMIN B12 LEVEL 690 PG/ML (247-911)
[2016-10-27 14:19] LABS: FOLATE > 24.0 NG/ML (>5.4)
[2016-10-27 14:20] LABS: FERRITIN 38 NG/ML (26-388); TOTAL IRON BINDING CAPACITY 415 UG/DL (250-450)
== END ==
LOC: M LAB REF 13:03
PROVIDERS: ATTEND Internal Medicine Nephrology
DX: N18.2 Chronic kidney disease, stage 2 (mild) (principal); D50.9 Iron deficiency anemia, unspecified

== ENCOUNTER → 2016-11-25 | Outpatient (CLI) | payer MEDICARE, BC, OTHER ==
--- NOTE | 2016-11-25 09:12 | REP ---
Clinical: Pain. Rule out fracture. Technique: AP, lateral, bilateral oblique and sunrise views of the left knee. Findings: There is no evidence for acute fracture or dislocation. Mild arthritic degenerative changes include spurring along the medial tibial plateau, cortical irregularities to the femoral condyles, subchondral sclerosis along the tibial plateau and posterior patella with associated medial joint space and patellofemoral joint space narrowing. No obvious effusion. Vascular calcifications consistent with atherosclerotic disease. Impression: Mild arthritic degenerative changes. No acute fracture or dislocation. Signed by Ralph Kc MD 11/25/2016 09:04 A
== END ==
LOC: M RAD 08:36
PROVIDERS: ATTEND Family Medicine
DX: M25.562 Pain in left knee (principal)

== ENCOUNTER → 2016-12-25 | Outpatient (CLI) | payer MEDICARE, BC, OTHER ==
[2016-12-25 09:23] LABS: MEAN CORPUSCULAR HEMOGLOBIN 32.2 pg (27.0-33.0); RED CELL DISTRIBUTION WIDTH 12.3 % (11.5-14.5); WHITE BLOOD COUNT 5.9 K/mm3 (4.0-10.0)
--- NOTE | 2016-12-25 09:47 | REP ---
CHEST, TWO VIEWS: COMPARISON: 07/28/2014. There is no evidence of acute infiltrate. No pleural effusion is seen. The heart is normal in size. The mediastinal silhouette is unremarkable. The visualized osseous structures are intact. There is curvature of the thoracolumbar spine convex to the right, stable. IMPRESSION: No acute pulmonary disease. Signed by Bautista Mon MD 12/25/2016 03:13 P
[2016-12-25 09:54] LABS: ALBUMIN 3.8 GM/DL (3.2-5.2); ALBUMIN/GLOBULIN RATIO 1.09 (1.00-1.93); BILIRUBIN,TOTAL 0.2 MG/DL (0.2-1.0); CALCIUM LEVEL 8.5 MG/DL (8.8-10.2); CREATININE FOR GFR 1.49 MG/DL (0.70-1.30); GLOMERULAR FILTRATION RATE 50.2 (>49); TOTAL PROTEIN 7.3 GM/DL (6.4-8.2)
[2016-12-25 09:56] LABS: POTASSIUM SERUM 5.2 MEQ/L (3.5-5.1)
--- NOTE | 2016-12-28 00:33 | ECGEPIP ---
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
== END ==
LOC: M LAB 08:36
PROVIDERS: ATTEND Family Medicine
DX: I10 Essential (primary) hypertension (principal); E11.9 Type 2 diabetes mellitus without complications; N40.0 Benign prostatic hyperplasia without lower urinary tract symptoms

== ENCOUNTER → 2017-02-03 | Outpatient (CLI) | payer MEDICARE, BC, OTHER ==
[~2017-02-03] MED LIST changes: +HYDR-643 PO; -HYDR10T PO; -VITA-130 PO; +VITA500T PO
[2017-02-03 10:18] LABS: MEAN CORPUSCULAR HEMOGLOBIN 32.1 pg (27.0-33.0); MEAN CORPUSCULAR HGB CONC 34.4 g/dl (32.0-36.5); MEAN CORPUSCULAR VOLUME 93.3 fl (80.0-96.0); RED CELL DISTRIBUTION WIDTH 12.2 % (11.5-14.5); WHITE BLOOD COUNT 4.8 K/mm3 (4.0-10.0)
[2017-02-03 10:20] LABS: INR 0.99
[2017-02-03 10:45] LABS: ALBUMIN 3.7 GM/DL (3.2-5.2); ALBUMIN/GLOBULIN RATIO 1.09 (1.00-1.93); ALKALINE PHOSPHATASE 77 U/L (45-117); ALT/SGPT 55 U/L (12-78); ANION GAP 9 MEQ/L (8-16); AST/SGOT 42 U/L (15-37); BILIRUBIN,TOTAL 0.3 MG/DL (0.2-1.0); BLOOD UREA NITROGEN 59 MG/DL (7-18); CALCIUM LEVEL 8.8 MG/DL (8.8-10.2); CARBON DIOXIDE LEVEL 29 MEQ/L (21-32); CHLORIDE LEVEL 103 MEQ/L (98-107); CHOLESTEROL LEVEL 122 MG/DL (<200); CREATININE FOR GFR 1.14 MG/DL (0.70-1.30); GLOMERULAR FILTRATION RATE > 60.0 (>49); GLUCOSE, FASTING 100 MG/DL (80-110); POTASSIUM SERUM 5.1 MEQ/L (3.5-5.1); SODIUM LEVEL 141 MEQ/L (136-145); TOTAL PROTEIN 7.1 GM/DL (6.4-8.2); TRIGLYCERIDES LEVEL 81 MG/DL (<150)
== END ==
LOC: M LAB 09:32
PROVIDERS: ATTEND Family Medicine
DX: Z01.818 Encounter for other preprocedural examination (principal); I10 Essential (primary) hypertension; E11.9 Type 2 diabetes mellitus without complications; Z79.899 Other long term (current) drug therapy

== ENCOUNTER → 2017-04-06 | Outpatient (CLI) | payer MEDICARE, BC, OTHER ==
[2017-04-06 10:40] LABS: MEAN CORPUSCULAR HEMOGLOBIN 32.5 pg (27.0-33.0); MEAN CORPUSCULAR HGB CONC 33.8 g/dl (32.0-36.5); MEAN CORPUSCULAR VOLUME 96.3 fl (80.0-96.0); RED CELL DISTRIBUTION WIDTH 12.5 % (11.5-14.5); WHITE BLOOD COUNT 4.7 10^3/uL (4.0-10.0)
[2017-04-06 11:01] LABS: INR 1.01
[2017-04-06 11:32] LABS: ALBUMIN 3.9 GM/DL (3.2-5.2); ALBUMIN/GLOBULIN RATIO 1.05 (1.00-1.93); ALKALINE PHOSPHATASE 82 U/L (45-117); ALT/SGPT 48 U/L (12-78); ANION GAP 7 MEQ/L (8-16); AST/SGOT 33 U/L (15-37); BILIRUBIN,TOTAL 0.4 MG/DL (0.2-1.0); BLOOD UREA NITROGEN 50 MG/DL (7-18); CALCIUM LEVEL 8.9 MG/DL (8.8-10.2); CARBON DIOXIDE LEVEL 31 MEQ/L (21-32); CHLORIDE LEVEL 100 MEQ/L (98-107); CREATININE FOR GFR 1.25 MG/DL (0.70-1.30); GLOMERULAR FILTRATION RATE > 60.0 (>49); GLUCOSE, FASTING 90 MG/DL (80-110); POTASSIUM SERUM 4.6 MEQ/L (3.5-5.1); SODIUM LEVEL 138 MEQ/L (136-145); TOTAL PROTEIN 7.6 GM/DL (6.4-8.2)
--- NOTE | 2017-04-06 11:49 | REP ---
PA and lateral chest: Comparison is 12/25/2016. The lung glover are clear. The cardiac size is normal The wendie, mediastinum, and bony thorax are unremarkable except for thoracic scoliosis convex right. Impression: Negative PA and lateral chest except for thoracic scoliosis convex right. There is no interval change. Signed by Bautista Garcia MD 04/06/2017 11:41 A
--- NOTE | 2017-04-06 20:19 | ECGEPIP ---
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
== END ==
LOC: M LAB 10:08
PROVIDERS: ATTEND Family Medicine
DX: Z01.818 Encounter for other preprocedural examination (principal); I10 Essential (primary) hypertension; E11.9 Type 2 diabetes mellitus without complications; Z79.899 Other long term (current) drug therapy

== ENCOUNTER → 2017-09-13 | Outpatient (CLI) | payer MEDICARE, BC, OTHER ==
[2017-09-13 11:19] LABS: ESTIMATED AVERAGE GLUCOSE 117 MG/DL (60-110); HEMOGLOBIN A1c 5.7 %
== END ==
LOC: M LAB 10:17
DX: E11.9 Type 2 diabetes mellitus without complications (principal)
CPT/HCPCS: 83036

== ENCOUNTER → 2017-10-20 | Outpatient (REF) | payer MEDICARE, BC, OTHER ==
[2017-10-21 14:32] LABS: FERRITIN 34 NG/ML (26-388); IRON (FE) 62 UG/DL (65-175); PERCENT SATURATION 15.9 % (19.7-50.0); TOTAL IRON BINDING CAPACITY 390 UG/DL (250-450)
== END ==
LOC: M LAB REF 10-21 13:28
DX: D50.9 Iron deficiency anemia, unspecified (principal)
CPT/HCPCS: 83550

== ENCOUNTER 2017-11-03 08:04 | Outpatient (CLI) | payer MEDICARE, BC, OTHER ==
[2017-11-03] MEDS: IRON SUCROSE 25 MG in NS 50 ML IV (09:02)
[2017-11-03] MEDS: IRON SUCROSE 475 MG in NS 250 ML IV (10:11)
== END 2017-11-03 13:30 | disposition home or self-care (01) ==
LOC: M INFU 08:04
DX: D50.9 Iron deficiency anemia, unspecified (principal); I11.0 Hypertensive heart disease with heart failure; G47.30 Sleep apnea, unspecified; I50.9 Heart failure, unspecified; G95.0 Syringomyelia and syringobulbia; E11.9 Type 2 diabetes mellitus without complications; M12.9 Arthropathy, unspecified; F32.9 Major depressive disorder, single episode, unspecified; F41.9 Anxiety disorder, unspecified; Z79.4 Long term (current) use of insulin; Z79.82 Long term (current) use of aspirin; Z79.899 Other long term (current) drug therapy; Z95.5 Presence of coronary angioplasty implant and graft; Z87.891 Personal history of nicotine dependence
CPT/HCPCS: J1756

== ENCOUNTER → 2018-04-22 | Outpatient (CLI) | payer MEDICARE, BC, OTHER ==
[2018-04-22 10:23] LABS: ALBUMIN 3.6 GM/DL (3.2-5.2); ALBUMIN/GLOBULIN RATIO 1.13 (1.00-1.93); ALKALINE PHOSPHATASE 87 U/L (45-117); ALT/SGPT 45 U/L (12-78); AST/SGOT 32 U/L (7-37); BILIRUBIN,DIRECT < 0.1 MG/DL (0.0-0.2); BILIRUBIN,TOTAL 0.2 MG/DL (0.2-1.0); CHOLESTEROL LEVEL 128 MG/DL (<200); CHOLESTEROL RISK RATIO 1.969 (<5); HDL CHOLESTEROL 65 MG/DL (>40); LDL CHOLESTEROL 39 MG/DL (<100); NON-HDL-C 63 MG/DL; TOTAL PROTEIN 6.8 GM/DL (6.4-8.2); TRIGLYCERIDES LEVEL 119 MG/DL (<150)
== END ==
LOC: M LAB 09:29
DX: I25.10 Atherosclerotic heart disease of native coronary artery without angina pectoris (principal); E78.00 Pure hypercholesterolemia, unspecified
CPT/HCPCS: 80076

== ENCOUNTER → 2018-07-06 | Outpatient (CLI) | payer MEDICARE, BC, OTHER ==
[~2018-07-06] MED LIST changes: +FLOM0.4C39 PO; -FLOM5CAP PO; -TELM1TAB12 PO; +TELM1TAB33 PO
--- NOTE | 2018-07-06 10:32 | ECGEPIP ---
Stationary ECG Study 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 Electronically Signed On 07-06-2018 10:31:36 EST by Vincenzo Rich
[2018-07-06 10:33] LABS: HEMATOCRIT 33.5 % (42.0-52.0); HEMOGLOBIN 11.1 g/dl (13.5-17.5); MEAN CORPUSCULAR HEMOGLOBIN 32.1 pg (27.0-33.0); MEAN CORPUSCULAR HGB CONC 33.1 g/dl (32.0-36.5); MEAN CORPUSCULAR VOLUME 96.8 fl (80.0-96.0); PLATELET COUNT, AUTOMATED 217 10^3/uL (150-450); RED BLOOD COUNT 3.46 10^6/uL (4.30-6.10); WHITE BLOOD COUNT 5.7 10^3/uL (4.0-10.0)
--- NOTE | 2018-07-06 10:38 | REP ---
Chest two views HISTORY: Preop Comparison: 04/06/2017 There is elevation of the right hemidiaphragm. The lungs are clear. The heart is normal in size. The pulmonary vasculature is normal in appearance. The bony structure is intact. There is scoliosis of the thoracic spine convex to the right. IMPRESSION: No acute disease. Electronically Signed by Hank Demarco MD 07/06/2018 10:30 A
[2018-07-06 10:45] LABS: INR 1.03; PROTHROMBIN TIME 13.7 SECONDS (12.1-14.4)
[2018-07-06 11:09] LABS: HEMOGLOBIN A1c 7.4 %
[2018-07-06 11:19] LABS: ALBUMIN 3.6 GM/DL (3.2-5.2); ALT/SGPT 51 U/L (12-78); BILIRUBIN,TOTAL 0.2 MG/DL (0.2-1.0); BLOOD UREA NITROGEN 48 MG/DL (7-18); CALCIUM LEVEL 8.9 MG/DL (8.8-10.2); CARBON DIOXIDE LEVEL 30 MEQ/L (21-32); CHLORIDE LEVEL 105 MEQ/L (98-107); CHOLESTEROL LEVEL 139 MG/DL (<200); CHOLESTEROL RISK RATIO 2.074 (<5); CREATININE FOR GFR 1.16 MG/DL (0.70-1.30); GLOMERULAR FILTRATION RATE > 60.0 (>49); GLUCOSE, FASTING 142 MG/DL (70-100); HDL CHOLESTEROL 67 MG/DL (>40); LDL CHOLESTEROL 49 MG/DL (<100); NON-HDL-C 72 MG/DL; POTASSIUM SERUM 4.8 MEQ/L (3.5-5.1); SODIUM LEVEL 141 MEQ/L (136-145); TOTAL PROTEIN 7.2 GM/DL (6.4-8.2); TRIGLYCERIDES LEVEL 117 MG/DL (<150)
== END ==
LOC: M LAB 09:45
PROVIDERS: ATTEND Family Medicine
DX: Z01.818 Encounter for other preprocedural examination (principal); M41.84 Other forms of scoliosis, thoracic region; I10 Essential (primary) hypertension; E11.9 Type 2 diabetes mellitus without complications

== ENCOUNTER → 2018-07-28 | Outpatient (CLI) | payer MEDICARE, BC, OTHER ==
[~2018-07-28] MED LIST changes: +E-Z-GAS II EFFERVESCENT PACKET (SODIUM BICARB./CITRIC ACID/SIMETHICONE) As Ordered ONE; +E-Z-HD 98% w/w 340GM SUSP BTL As Ordered ONE; +E-Z-PAQUE 96% w/w SUSP 176GM BTL As Ordered ONE
--- NOTE | 2018-07-29 08:11 | REP ---
UPPER GI AIR CONTRAST The procedure was performed under the direct supervision of Dr. Cannon. The images were reviewed with Dr. Cannon. The value stream coach film shows no organomegaly or pathological masses. The test gas pattern is nonspecific. There are degenerative changes of the spine. Liquid barium and gas producing granules and given in the erect position as well as liquid barium in the prone oblique position in order to perform a double contrast upper GI examination. The oral and pharyngeal stages of deglutition are unremarkable. The esophagus and GE junction are patulous. There are tertiary waves demonstrated. There is a polyp at the GE junction. Recommend endoscopy for further evaluation. There is no hiatal hernia. Gastroesophageal reflux is not demonstrated on this examination. The stomach browning are normally aligned. The rugal folds are smooth and regular. There is no gastritis neoplasm or ulcer disease. The duodenal browning are normally aligned. The mucosal folds are smooth and regular. There is no duodenitis pancreatitis peptic ulcer disease or neoplasm. The visualized portion of the proximal small bowel appears normal in course and caliber. Impression: 1. There is a polyp in the esophagus at the GE junction. Recommend endoscopy for further evaluation. 2. Esophageal dysmotility. 3. The esophagus and GE junction are patulous. 2.1 minutes of fluoroscopy time was utilized for this procedure. Reviewed by KIMBERLY Aburto 07/29/2018 07:44 A Electronically Signed by John Cannon MD 07/29/2018 08:03 A
== END ==
LOC: M RAD 09:41
PROVIDERS: ATTEND Family Medicine
DX: D64.9 Anemia, unspecified (principal); K25.9 Gastric ulcer, unspecified as acute or chronic, without hemorrhage or perforation

== ENCOUNTER 2018-08-17 09:46 | Day surgery (SDC) | payer MEDICARE, BC, OTHER ==
[~2018-08-17] VITALS: Ht 172.7 cm; Wt 107.0 kg
[~2018-08-17 09:46] MED LIST changes: +ALLO10TA PO; -E-Z-GAS II EFFERVESCENT PACKET (SODIUM BICARB./CITRIC ACID/SIMETHICONE) As Ordered ONE; -E-Z-HD 98% w/w 340GM SUSP BTL As Ordered ONE; -E-Z-PAQUE 96% w/w SUSP 176GM BTL As Ordered ONE
[2018-08-17] MEDS ORDERED: LIDOCAINE 2% INJ 100 MG/5 ML SDV (FOR ANES.) As Ordered ONE (11:35)
[2018-08-17] MEDS ORDERED: PROPOFOL 200 MG/20 ML VIAL As Ordered ONE (11:35)
[2018-08-17] MEDS ORDERED: fentaNYL 100 MCG/2 ML INJECTION (J3010) As Ordered ONE (11:36)
[2018-08-17] MEDS ORDERED: NS 1,000 ML IV ONE (12:00)
--- NOTE | 2018-08-17 12:20 | ROOR ---
Patient Name: Hank Vilchis Procedure Date: 08/17/2018 11:55 AM Date of : 1950 Age: 68 Room: [facility] Gender: Male Note Status: Finalized Procedure: Upper Endoscopy + Biopsies Indications: Iron deficiency anemia, Unexplained iron deficiency anemia Providers: Micha Zhao MD Referring MD: West Rinaldi MD Requesting Provider: Medicines: Monitored Anesthesia Care Complications: No immediate complications. Procedure: Pre-Anesthesia Assessment: - The heart rate, respiratory rate, oxygen saturations, blood pressure, adequacy of pulmonary ventilation, and response to care were monitored throughout the procedure. The Endoscope was introduced through the mouth, and advanced to the second part of duodenum. The upper GI endoscopy was accomplished without difficulty. The patient tolerated the procedure well. Findings: The Z-line was irregular and was found 40 cm from the incisors. Multiple biopsies were obtained with cold forceps for evaluation to rule out Herrera's Esophagus randomly at the gastroesophageal junction. A medium-sized hiatal hernia was present. No other significant abnormalities were identified in a careful examination of the stomach. The exam of the duodenum was otherwise normal. Biopsies for histology were taken with a cold forceps in the first portion of the duodenum for evaluation of celiac disease. The exam was otherwise without abnormality. Impression: - Z-line irregular, 40 cm from the incisors. - Medium-sized hiatal hernia. - The examination was otherwise normal. - Multiple biopsies were obtained at the gastroesophageal junction. - Biopsies were taken with a cold forceps for evaluation of celiac disease. - The examination was otherwise normal. Recommendation: - Patient has a contact number available for emergencies. The signs and symptoms of potential delayed complications were discussed with the patient. Return to normal activities tomorrow. Written discharge instructions were provided to the patient. - High fiber diet. - Discharge patient to home. - Follow an antireflux regimen. - Continue present medications. - Await pathology results. - Telephone GI clinic for pathology results in 1 week. - The findings and recommendations were discussed with the patient's family. Micha Zhao MD Micha Zhao MD 08/17/2018 12:19:23 PM This report has been signed electronically. Number of Addenda: 0 Note Initiated On: 08/17/2018 11:55 AM Estimated Blood Loss: Estimated blood loss: none.
[2018-08-17] MEDS ORDERED: ePHEDrine SULFATE 25 MG/5 ML(5MG/ML) SYRINGE As Ordered ONE (12:45)
--- NOTE | 2018-08-17 12:45 | ROOR ---
Patient Name: Hank Vilchis Procedure Date: 08/17/2018 12:05 PM Date of : 1950 Age: 68 Room: [facility] Gender: Male Note Status: Finalized Procedure: Total Colonoscopy to Cecum + Cold Snare Polypectomy + Hemoclips Indications: Iron deficiency anemia Providers: Micha Zhao MD Referring MD: West Rinaldi MD Requesting Provider: Medicines: Monitored Anesthesia Care Complications: No immediate complications. Procedure: Pre-Anesthesia Assessment: - The heart rate, respiratory rate, oxygen saturations, blood pressure, adequacy of pulmonary ventilation, and response to care were monitored throughout the procedure. The Colonoscope was introduced through the anus and advanced to the cecum, identified by appendiceal orifice and ileocecal valve. The colonoscopy was performed without difficulty. The patient tolerated the procedure well. The quality of the bowel preparation was excellent. Findings: The perianal and digital rectal examinations were normal. Non-bleeding internal hemorrhoids were found during retroflexion. The hemorrhoids were small and Grade I (internal hemorrhoids that do not prolapse). Multiple small and large-mouthed diverticula were found in the recto-sigmoid colon, sigmoid colon and descending colon. Two sessile polyps were found in the ascending colon. The polyps were large in size. These polyps were removed with a cold snare. Resection and retrieval were complete. To prevent bleeding after the polypectomy, two hemostatic clips were successfully placed (MR conditional). There was no bleeding at the end of the procedure. The exam was otherwise without abnormality on direct and retroflexion views. Impression: - Non-bleeding internal hemorrhoids. - Diverticulosis in the recto-sigmoid colon, in the sigmoid colon and in the descending colon. - Two large polyps in the ascending colon, removed with a cold snare. Resected and retrieved. Clips (MR conditional) were placed. - The examination was otherwise normal on direct and retroflexion views. - The exam was otherwise normal to the cecum. Recommendation: - Patient has a contact number available for emergencies. The signs and symptoms of potential delayed complications were discussed with the patient. Return to normal activities tomorrow. Written discharge instructions were provided to the patient. - High fiber diet. - Discharge patient to home. - Continue present medications. - Await pathology results. - Telephone GI clinic for pathology results in 1 week. - Repeat colonoscopy for surveillance based on pathology results. - Return to referring physician. - The findings and recommendations were discussed with the patient's family. Micha Zhao MD Micha Zhao MD 08/17/2018 12:44:28 PM This report has been signed electronically. Number of Addenda: 0 Note Initiated On: 08/17/2018 12:05 PM Estimated Blood Loss: Estimated blood loss: none.
[2018-08-17 13:05] VITALS: BP 147/70
== END 2018-08-17 13:27 | disposition home or self-care (01) ==
LOC: M OPP 09:46
PROVIDERS: ATTEND Internal Medicine Gastroenterology
DX: K64.0 First degree hemorrhoids (principal); D12.2 Benign neoplasm of ascending colon; K57.30 Diverticulosis of large intestine without perforation or abscess without bleeding; K22.8 Other specified diseases of esophagus; K44.9 Diaphragmatic hernia without obstruction or gangrene; N18.9 Chronic kidney disease, unspecified; G47.30 Sleep apnea, unspecified; I50.9 Heart failure, unspecified; G95.0 Syringomyelia and syringobulbia; E11.9 Type 2 diabetes mellitus without complications; Z79.4 Long term (current) use of insulin; Z79.82 Long term (current) use of aspirin; Z79.899 Other long term (current) drug therapy; Z87.891 Personal history of nicotine dependence; Z88.8 Allergy status to other drugs, medicaments and biological substances; Z95.5 Presence of coronary angioplasty implant and graft
CPT/HCPCS: 43239; 45385; 88305; J3010

== ENCOUNTER → 2018-09-09 | Outpatient (CLI) | payer MEDICARE, BC, OTHER ==
[2018-09-09 08:21] LABS: HEMATOCRIT 33.9 % (42.0-52.0); HEMOGLOBIN 11.2 g/dl (13.5-17.5); MEAN CORPUSCULAR HEMOGLOBIN 32.3 pg (27.0-33.0); MEAN CORPUSCULAR VOLUME 97.7 fl (80.0-96.0); PLATELET COUNT, AUTOMATED 207 10^3/uL (150-450); RED BLOOD COUNT 3.47 10^6/uL (4.30-6.10); WHITE BLOOD COUNT 5.7 10^3/uL (4.0-10.0)
[2018-09-09 10:08] LABS: HEMOGLOBIN A1c 7.6 %
== END ==
LOC: M LAB 07:59
PROVIDERS: ATTEND Family Medicine
DX: D64.9 Anemia, unspecified (principal); E11.9 Type 2 diabetes mellitus without complications

== ENCOUNTER → 2018-09-10 | Outpatient (CLI) | payer MEDICARE, BC, OTHER ==
[2018-09-10 09:37] LABS: HEMATOCRIT 31.7 % (42.0-52.0); HEMOGLOBIN 10.8 g/dl (13.5-17.5); MEAN CORPUSCULAR HEMOGLOBIN 32.8 pg (27.0-33.0); MEAN CORPUSCULAR HGB CONC 34.1 g/dl (32.0-36.5); MEAN CORPUSCULAR VOLUME 96.4 fl (80.0-96.0); PLATELET COUNT, AUTOMATED 213 10^3/uL (150-450); RED BLOOD COUNT 3.29 10^6/uL (4.30-6.10); WHITE BLOOD COUNT 4.9 10^3/uL (4.0-10.0)
[2018-09-10 11:07] LABS: INR 1.05; PROTHROMBIN TIME 13.8 SECONDS (12.1-14.4)
[2018-09-10 11:08] LABS: PARTIAL THROMBOPLASTIN TIME 40.5 SECONDS (25.4-37.6)
[2018-09-10 14:38] LABS: ALBUMIN 3.7 GM/DL (3.2-5.2); BILIRUBIN,TOTAL 0.2 MG/DL (0.2-1.0); CALCIUM LEVEL 8.6 MG/DL (8.8-10.2); CREATININE FOR GFR 1.41 MG/DL (0.70-1.30); GLOMERULAR FILTRATION RATE 53.2 (>49); TOTAL PROTEIN 6.9 GM/DL (6.4-8.2)
== END ==
LOC: M LAB 09:01
PROVIDERS: ATTEND Internal Medicine Gastroenterology
DX: K22.711 Barrett's esophagus with high grade dysplasia (principal)

== ENCOUNTER → 2019-04-04 | Outpatient (CLI) | payer MEDICARE, BC, OTHER ==
[~2019-04-04] MED LIST changes: +ASPI81TA26 PO; -CRES20TA PO; +CRES20TA2 PO; +SERT-141 PO; -SERT50TA PO
[2019-04-04 12:38] LABS: ALBUMIN 3.4 GM/DL (3.2-5.2); ALT/SGPT 47 U/L (12-78); BILIRUBIN,TOTAL 0.3 MG/DL (0.2-1.0); BLOOD UREA NITROGEN 48 MG/DL (7-18); CALCIUM LEVEL 8.9 MG/DL (8.8-10.2); CARBON DIOXIDE LEVEL 29 MEQ/L (21-32); CHLORIDE LEVEL 106 MEQ/L (98-107); CHOLESTEROL LEVEL 138 MG/DL (<200); CHOLESTEROL RISK RATIO 1.916 (<5); CREATININE FOR GFR 1.23 MG/DL (0.70-1.30); GLOMERULAR FILTRATION RATE > 60.0 (>49); GLUCOSE, FASTING 102 MG/DL (70-100); HDL CHOLESTEROL 72 MG/DL (>40); LDL CHOLESTEROL 54 MG/DL (<100); NON-HDL-C 66 MG/DL; POTASSIUM SERUM 4.8 MEQ/L (3.5-5.1); SODIUM LEVEL 140 MEQ/L (136-145); TOTAL PROTEIN 7.3 GM/DL (6.4-8.2); TRIGLYCERIDES LEVEL 58 MG/DL (<150)
== END ==
LOC: M LAB 10:01
PROVIDERS: ATTEND Nurse Practitioner Adult Health
DX: I25.10 Atherosclerotic heart disease of native coronary artery without angina pectoris (principal); I50.32 Chronic diastolic (congestive) heart failure; E78.00 Pure hypercholesterolemia, unspecified

== ENCOUNTER → 2019-05-02 | Outpatient (CLI) | payer MEDICARE, BC, OTHER ==
[~2019-05-02] MED LIST changes: +OMEP-358 PO; -OMEP20TA PO
--- NOTE | 2019-05-04 14:41 | SLEEPCENT ---
DATE OF PROCEDURE: 05/02/2019 ORDERED BY: Francia Cummins NP Nocturnal polysomnography was performed for the titration of pressure therapy in this patient with obstructive sleep apnea syndrome. For testing a Rosario and Tima, Simplus full-face mask of medium size was used; 20 cm of water pressure were applied to the circuit and the lights were extinguished. 8 hours and 21 minutes of data were reviewed. There were 161.5 minutes of sleep identified. Sleep latency was prolonged at 136 minutes. Rapid eye movement (REM) sleep was not achieved. Sleep architecture showed poor progression and a prolonged period of wake around 3 a.m. resulting in reduced sleep efficiency of 32.7%. The electrocardiogram showed a sinus rhythm with an average heart rate of 75 beats per minute. Electroencephalogram (EEG) showed normal waveforms for awake and sleep. Respiratory events were fairly well palliated with CPAP at 20 cm with some mild hypopneic patterning but no significant oxygen desaturations were seen. Limb activity was noted in the limb EEG leads early in the study but limb movement arousal index was only 3.7 and saturations remained 90 plus throughout the study. IMPRESSION: Obstructive sleep apnea syndrome (G47.33). RECOMMENDATIONS: Nightly use of pressure therapy at 20 cm of water seems sufficient to address the patient's obstructive respiratory events.
== END ==
LOC: M SLEEP 19:36
PROVIDERS: ATTEND Nurse Practitioner Adult Health
DX: G47.33 Obstructive sleep apnea (adult) (pediatric) (principal)

== ENCOUNTER → 2019-09-21 | Outpatient (REF) | payer MEDICARE, BC, OTHER ==
[2019-09-21 14:11] LABS: IRON (FE) 92 UG/DL (65-175); PERCENT SATURATION 24.3 % (19.7-50.0); TOTAL IRON BINDING CAPACITY 378 UG/DL (250-450)
[2019-09-21 14:22] LABS: FOLATE > 24.0 NG/ML; VITAMIN B12 LEVEL 1249 PG/ML
== END ==
LOC: M LAB REF 13:31
PROVIDERS: ATTEND Nurse Practitioner Family
DX: D50.9 Iron deficiency anemia, unspecified (principal); D64.9 Anemia, unspecified

== ENCOUNTER → 2020-01-04 | Outpatient (CLI) | payer MEDICARE, BC, OTHER ==
[~2020-01-04] MED LIST changes: +VITA-243 PO; -VITA500T PO
[2020-01-04 12:36] LABS: HEMATOCRIT 31.7 % (42.0-52.0); HEMOGLOBIN 10.4 g/dl (13.5-17.5); MEAN CORPUSCULAR HEMOGLOBIN 32.5 pg (27.0-33.0); MEAN CORPUSCULAR HGB CONC 32.8 g/dl (32.0-36.5); MEAN CORPUSCULAR VOLUME 99.1 fl (80.0-96.0); PLATELET COUNT, AUTOMATED 207 10^3/uL (150-450); WHITE BLOOD COUNT 5.3 10^3/uL (4.0-10.0)
[2020-01-04 12:44] LABS: INR 1.07; PROTHROMBIN TIME 13.6 SECONDS (11.8-14.0)
[2020-01-04 13:23] LABS: HEMOGLOBIN A1c 7.5 %
[2020-01-04 13:28] LABS: ALBUMIN 3.5 GM/DL (3.2-5.2); BILIRUBIN,TOTAL 0.3 MG/DL (0.2-1.0); CALCIUM LEVEL 8.8 MG/DL (8.8-10.2); CHOLESTEROL RISK RATIO 2.065 (<5); CREATININE FOR GFR 1.36 MG/DL (0.70-1.30); GLOMERULAR FILTRATION RATE 55.3 (>49); POTASSIUM SERUM 4.9 MEQ/L (3.5-5.1); PROSTATIC SPECIFIC AG MONITOR 0.78 NG/ML (< 4.00); THYROID STIMULATING HORMONE 1.2 uIU/ML (0.358-3.740); TOTAL PROTEIN 7.2 GM/DL (6.4-8.2)
--- NOTE | 2020-01-04 14:48 | REP ---
Clinical: Hypertension . Comparison: 07/06/2018 . Technique: PA and lateral. Findings: The mediastinum and cardiac silhouette are normal. The lung glover are clear and without acute consolidation, effusion, or pneumothorax. The skeletal structures are intact and normal. Impression: 1. No acute cardiopulmonary process. Electronically Signed by Ralph Kc MD 01/04/2020 02:39 P
--- NOTE | 2020-01-05 16:48 | ECGEPIP ---
[facility] Test Date: 2020-01-04 Pat Name: ELLY CARSON Department: Room: - Gender: Male Icu Rn: TRENT : 1950 Requested By: Tena Bingham Order Number: [id number] Reading MD: Jc Hickey Measurements Intervals [place] Rate: 79 P: 61 [place]: 207 QRS: 56 QRSD: 106 T: 57 QT: 414 QTc: 476 Interpretive Statements SINUS RHYTHM WITH BORDERLINE FIRST DEGREE AV BLOCK MOST RECENT TRACING ON 07/06/18, 10:13. [place] INTERVAL IS SLIGHTLY SHORTER Electronically Signed on 01-05-2020 16:48:04 EDT by Jc Hickey
== END ==
LOC: M LAB 11:41
PROVIDERS: ATTEND Family Medicine
DX: Z01.812 Encounter for preprocedural laboratory examination (principal); I10 Essential (primary) hypertension; E11.9 Type 2 diabetes mellitus without complications

== ENCOUNTER → 2020-01-20 | Outpatient (CLI) | payer MEDICARE, BC, OTHER | LOC: M LABSMTC 08:40 | PROVIDERS: ATTEND Anesthesiology | DX: Z01.818 Encounter for other preprocedural examination (principal); Z11.59 Encounter for screening for other viral diseases | CPT/HCPCS: C9803; U0003 ==

== ENCOUNTER → 2020-01-25 | Day surgery (SDC) | payer MEDICARE, BC, OTHER ==
[~2020-01-25] VITALS: Ht 172.7 cm; Wt 103.4 kg
[~2020-01-25] MED LIST changes: +ACETYLCHOLINE OPHTH SOLN 1% 2ML (MIOCHOL-E) As Ordered ONE; +BSS IRR 500ML/OMIDRIA 4ML IRR BAG (OR ONLY) (J1097 PER ML) As Ordered ONE; +CEFUROXIME 1MG/0.1ML INTRACAMERAL INJ As Ordered ONE; +DUOVISC (0.50ML VISCOAT/0.55ML PROVISC) OPHTH KIT As Ordered ONE; +MIDAZOLAM INJ 2MG/2ML VIAL (J2250 PER 1MG) As Ordered ONE; +OFLOXACIN 0.3 % (OCUFLOX) OPTH SOL 5ML OD ONE; +PHENYLEPHRINE 2.5% OPHTH SOL 2ML OD ONE; +POVIDONE-IODINE 5% OPHTH PREP SOL 30ML As Ordered ONE; +PROPARACAINE 0.5% OPHTH SOL 15ML OD ONE; +TROPICAMIDE 1% OPHTH SOLN 2ML OD ONE; +fentaNYL 100 MCG/2 ML INJECTION (J3010) As Ordered ONE
[2020-01-25 08:40] VITALS: BP 184/76
== END | disposition home or self-care (01) ==
LOC: M SDC 06:23
PROVIDERS: ATTEND Ophthalmology
DX: H25.11 Age-related nuclear cataract, right eye (principal); E10.40 Type 1 diabetes mellitus with diabetic neuropathy, unspecified; Z79.4 Long term (current) use of insulin; Z79.82 Long term (current) use of aspirin; I50.32 Chronic diastolic (congestive) heart failure; I25.10 Atherosclerotic heart disease of native coronary artery without angina pectoris; Z98.61 Coronary angioplasty status; G47.33 Obstructive sleep apnea (adult) (pediatric); N40.0 Benign prostatic hyperplasia without lower urinary tract symptoms; I11.0 Hypertensive heart disease with heart failure; E78.5 Hyperlipidemia, unspecified; K21.9 Gastro-esophageal reflux disease without esophagitis; F41.9 Anxiety disorder, unspecified; Z87.891 Personal history of nicotine dependence; M10.9 Gout, unspecified; Z88.8 Allergy status to other drugs, medicaments and biological substances; Z95.5 Presence of coronary angioplasty implant and graft; I95.1 Orthostatic hypotension; Z79.899 Other long term (current) drug therapy
CPT/HCPCS: 66982; J1097; J2250; J3010; V2632

== ENCOUNTER 2020-06-05 14:21 | Emergency (ER) | payer MEDICARE, BC, OTHER ==
[~2020-06-05] VITALS: Ht 172.7 cm; Wt 112.5 kg
[~2020-06-05 14:21] MED LIST changes: -ACETYLCHOLINE OPHTH SOLN 1% 2ML (MIOCHOL-E) As Ordered ONE; -BSS IRR 500ML/OMIDRIA 4ML IRR BAG (OR ONLY) (J1097 PER ML) As Ordered ONE; -CEFUROXIME 1MG/0.1ML INTRACAMERAL INJ As Ordered ONE; -DUOVISC (0.50ML VISCOAT/0.55ML PROVISC) OPHTH KIT As Ordered ONE; -MIDAZOLAM INJ 2MG/2ML VIAL (J2250 PER 1MG) As Ordered ONE; -OFLOXACIN 0.3 % (OCUFLOX) OPTH SOL 5ML OD ONE; -PHENYLEPHRINE 2.5% OPHTH SOL 2ML OD ONE; -POVIDONE-IODINE 5% OPHTH PREP SOL 30ML As Ordered ONE; -PROPARACAINE 0.5% OPHTH SOL 15ML OD ONE; -TROPICAMIDE 1% OPHTH SOLN 2ML OD ONE; -fentaNYL 100 MCG/2 ML INJECTION (J3010) As Ordered ONE
[2020-06-05] MEDS ORDERED: LIDOCAINE W/EPINEPHRINE 1% 20ML VIAL As Ordered ONE (14:34)
--- NOTE | 2020-06-05 15:43 | REP ---
INDICATION: fall/ right posterior lac COMPARISON: 07/30/2016 TECHNIQUE: Axial noncontrast images from the skull base to the thoracic inlet with coronal reformations. This CT examination was performed using the following dose reduction techniques: Automated exposure control, adjustment of mA and/or kv according to the patient's size, and use of iterative reconstruction technique. FINDINGS: Age-related atrophy and microvascular ischemic changes are appreciated. The ventricles and sulci are symmetric. Mon-white differentiation is maintained. There is no evidence for acute intracranial hemorrhage, mass/mass effect, pathology or infarction. No extra-axial fluid collection. Calvarium is intact. Paranasal sinuses and mastoid air cells are clear. IMPRESSION: Age related atrophy and microvascular ischemic changes. No acute intracranial hemorrhage, infarction, or mass/mass effect. <Electronically signed by Ralph Kc > 06/05/20 [id number]
[2020-06-05 16:13] LABS: HEMATOCRIT 29.4 % (42.0-52.0); HEMOGLOBIN 9.3 g/dl (13.5-17.5); MEAN CORPUSCULAR HEMOGLOBIN 30.7 pg (27.0-33.0); MEAN CORPUSCULAR HGB CONC 31.6 g/dl (32.0-36.5); PLATELET COUNT, AUTOMATED 213 10^3/uL (150-450); RED BLOOD COUNT 3.03 10^6/uL (4.30-6.10); WHITE BLOOD COUNT 4.7 10^3/uL (4.0-10.0)
[2020-06-05 16:39] LABS: ALBUMIN 3.5 GM/DL (3.2-5.2); BILIRUBIN,TOTAL 0.2 MG/DL (0.2-1.0); CALCIUM LEVEL 8.4 MG/DL (8.8-10.2); CREATININE FOR GFR 1.65 MG/DL (0.70-1.30); GLOMERULAR FILTRATION RATE 44.1 (>42); POTASSIUM SERUM 4.3 MEQ/L (3.5-5.1); TOTAL PROTEIN 6.8 GM/DL (6.4-8.2)
--- NOTE | 2020-06-05 17:10 | REP ---
INDICATION: fall. COMPARISON: Comparison MRI study of cervical spine August 06, 2016.. TECHNIQUE: Helical scanning is acquired and overlapping 2 mm high resolution axial images were generated and reviewed at bone and soft tissue window settings. Coronal and sagittal multiplanar re-formations images are generated. FINDINGS: There are cervical laminectomies performed at C5 and C6. A segment of intraspinal catheter material is seen along the dorsal epidural space in the lower cervical spine. This terminates centrally in the spinal canal at the C3-4 level and is consistent with a syrinx decompression catheter device. 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 Cervical vertebral body heights are preserved. No fracture or collapse is seen. No subluxation is observed. There is osteoarthritic facet hypertrophy in the midcervical spine bilaterally. There is partial fusion on the right side and the left side of the C2-3 disc. The C2-3 facets are ankylosed bilaterally. No posterior element fracture is appreciated.. IMPRESSION: No traumatic abnormality noted. 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 Degenerative spondylosis changes. Disc and facet joint fusion as above.. <Electronically signed by Carlos Enrique Cannon > 06/05/20 [id number]
[2020-06-05] MEDS ORDERED: NS 500 ML IV ONE ×2 (17:45→18:45)
[2020-06-05] MEDS ORDERED: BOOSTRIX/ADACEL VACCINE (DIPHTH/PERTUSS/ACELL/TETANUS) 0.5ML SYR IM ONE (19:15)
[2020-06-05 19:57] VITALS: BP 156/66
== END 2020-06-05 20:43 | disposition home or self-care (01) ==
LOC: EDBD 14:21 → M ED 14:21
DX: S01.01XA Laceration without foreign body of scalp, initial encounter (principal); W01.198A Fall on same level from slipping, tripping and stumbling with subsequent striking against other object, initial encounter; Y92.019 Unspecified place in single-family (private) house as the place of occurrence of the external cause; Y93.9 Activity, unspecified; Y99.9 Unspecified external cause status; I50.9 Heart failure, unspecified; I95.1 Orthostatic hypotension; R26.81 Unsteadiness on feet; E86.0 Dehydration

== ENCOUNTER 2020-07-16 13:45 | Inpatient (IN) | payer MEDICARE, BC, OTHER ==
[~2020-07-16] VITALS: Ht 172.7 cm; Wt 112.5 kg
--- OUTSIDE RECORDS SUMMARY | 2020-07-16 13:51 | CCD | Continuity of Care Document ---
Author Author Hank PARMAR MD Organization Unknown Address [id number] [place] [address] Phone [phone] Care Team Providers Care Soccer Referee Name Role Phone Tate Hamilton MD AUTM [phone] Ashley Contreras MD AUTM [phone] Ariel Gonzalez MD AUTM [phone] Charanjit Kelley MD AUTM [phone] Ivana Bryant MD AUTM [phone] Favio Peralta MD AUTM [phone] Francia Cummins RN ANP AUTM [phone] Alison Chen MD AUTM [phone] Janice Lopez EXPLOSIVE OPERATOR [employer]USE AUTM [phone] Italia Vega AUTM [phone] Problems Active Problems Provider Date Coronary arteriosclerosis Ruel Parmar MD Onset: 2013 Patient post percutaneous transluminal coronary angiop lasty Ruel Parmar MD Onset: 12/06/2013 Chronic diastolic heart failure Ruel Parmar MD Onset: 11/03/2013 Benign hypertensive heart disease with congestive card iac failure Ruel Parmar MD Onset: 12/06/2013 Orthostatic hypotension Ruel Parmar MD Onset: 10/17/19 15 Pure hypercholesterolemia Ruel Parmar MD Onset: 2013 Obesity Ruel Parmar MD Onset: 11/03/2013 Obstructive sleep apnea syndrome HAYDEN AvilaMinoo Onset: 07/08/2016 Dietary management surveillance Sarah Nickerson PA-C Onset: 01/20/2017 Social History Type Date Description Comments Sex Unknown ETOH Use Consumes 1 glass of wine per day Tobacco Use Start: Unknown End: Unknown Patient is a former smoker up to 2ppd x11 yrs, quit 07/1985 Smoking Status Reviewed: 04/02/20 Patient is a former smoker up to 2ppd x11 yrs, quit 07/1985 Exercise Type/Frequency Does yardwork twice a we ek snow blow in [place]/ mow lawn in [place] with push mower Exercise Type/Frequency Bikes daily stationa ry bike for 45 minutes daily Exercise Limitations Imbalance Allergies, Adverse Reactions, Alerts Active Allergies Reaction Severity Comments Date Lisinopril muscle weakness, falling muscle weakness, falling 12/25/2014 Carvedilol dizziness/increased leg swel ling 09/22/2017 Medications Active Medications SIG Qnty Indications Ordering Provide r Date Allopurinol 100mg Tablets 1 by mouth every day Unknown 10/02/2018 Hydroxyzine HCL 10mg Tablets 1 by mouth daily as needed Unknown 09/21/2017 Multivitamin Adults Tablets once daily Unknown 03/21/2017 Zoloft 50mg Tablets 1 by mouth every day Unknown 01/19/2017 Primidone 50mg Tablets 1/2 by mouth twice a day Ivana Bryant MD 01/19/2017 Telmisartan 20mg Tablets 1/2 by mouth daily at bedtime 45tabs I25.10 Vincenzo Rich MD 04/26/2016 I50.32 Furosemide 40mg Tablets 1 by mouth every day Unknown 10/15/2014 Lantus 100Unit/ML Solution 26 units in the morning Unknown 06/19/2014 Nitrostat 0.4mg Tablets Sub 1 sl every 5min x3 as needed for chest pain 25tabs I25.10 Vincenzo Rich MD 12/05/2013 Crestor 20mg Tablets take 1 tablet by mouth at bedtime 90tabs I25.10 Vincenzo Rich MD 11/03/2013 E78.00 Tamsulosin HCL 0.4mg Capsules 1 by mouth every day 90caps Tate Hamilton MD 11/02/[address] 1 by mouth every day Tate Hamilton MD 11/02/2013 Vitamin D 1000Unit Tablets 1 by mouth every day Unknown 11/02/[address] 1 by mouth every day Unknown Immunizations Description No Information Available Vital Signs Date Vital Result Comment 04/02/2020 10:58am Weight 244.00 lb Home Weight 240lb Height 68 inches 5'8" BMI (Body Mass Index) 37.1 kg/m2 Heart Rate 76 /min Regular Respiratory Rate 16 /min BP Systolic Right Arm 136 mmHg sitting, large cuf f BP Diastolic Right Arm 76 mmHg sitting, large cu ff BP Systolic Left Arm 134 mmHg sitting BP Diastolic Left Arm 76 mmHg sitting BP Systolic Standing 136 mmHg BP Diastolic Standing 72 mmHg 10/06/2019 10:02am Weight 240.00 lb Home Weight 238lb home weight Height 68 inches 5'8" BMI (Body Mass Index) 36.5 kg/m2 Heart Rate 84 /min Regular Respiratory Rate 16 /min BP Systolic Right Arm 126 mmHg sitting, large cuf f BP Diastolic Right Arm 76 mmHg sitting, large cu ff BP Systolic Left Arm 124 mmHg sitting BP Diastolic Left Arm 70 mmHg sitting BP Systolic Standing 126 mmHg Ra BP Diastolic Standing 70 mmHg Ra Results Test Acquired Date Facility Test Result H/L Range Note Renal Profile 05/28/2020 [facility] ([facility])- - Glucose 105 High 70-100 Blood Urea Nitrogen 48.1 High 5-21 Creatinine 1.2 0.6-1.5 GFR (Calculated) 60 Sodium 137.6 136-146 Potassium 4.89 3.5-5.3 Chloride 97.6 Low 98-110 Carbon Dioxide 31.3 20-32 Calcium 8.9 8.4-10.4 Phosphorus 3.6 Albumin 4.0 3.5-4.7 CBC without Differential 05/28/2020 [facility] ([facility])- - White Blood Count 5.2 4.3-10.9 Red Blood Count 3.32 Low 4.70-6.20 Platelets 195 130-400 Hemoglobin 10.6 Low 13.0-17.0 Hematocrit 32.6 Low 39.0-50.0 Laboratory test finding 05/28/2020 [facility] ([facility])- - Magnesium Level 2.14 Renal Profile 03/26/2020 [facility] ([facility])- - Glucose 146 High 70-100 Blood Urea Nitrogen 55.9 High 5-21 Creatinine 1.6 High 0.6-1.5 GFR (Calculated) 43 Sodium 135.2 Low 136-146 Potassium 4.5 3.5-5.3 Chloride 93.2 Low 98-110 Carbon Dioxide 30.4 20-32 Calcium 9.0 8.4-10.4 Phosphorus 4.3 Albumin 4.0 3.5-4.7 CBC without Differential 03/26/2020 [facility] ([facility])- - White Blood Count 5.8 4.3-10.9 Red Blood Count 3.48 Low 4.70-6.20 Platelets 240 130-400 Hemoglobin 10.9 Low 13.0-17.0 Hematocrit 34.9 Low 39.0-50.0 Procedures Date Code Description Status 04/16/2020 29920 Treadmill/Pharmacological Monito ring Completed 04/16/2020 03894 Myocardial Perfusion Spect Multi ple Completed 04/02/2020 29318 ECG 12-Lead Completed Medical Devices Description No Information Available Encounters Type Date Location Provider Dx Diagnosis Office Visit 04/29/2020 10:13a Main Office Ruel Parmar MD I50.3 2 Chronic diastolic (congestive) heart failure I11.0 Hypertensive heart disease w ith heart failure E78.00 Pure hypercholesterolemia, u nspecified Office Visit 04/02/2020 10:45a Main Office Sarah Nickerson PA-C I25.1 0 Athscl heart disease of [place] coronary artery w/o ang pctrs Z95.5 Presence of coronary angiopl asty implant and graft I50.32 Chronic diastolic (congestiv e) heart failure I11.0 Hypertensive heart disease w ith heart failure I95.1 Orthostatic hypotension E78.00 Pure hypercholesterolemia, u nspecified Z71.3 Dietary counseling and surve illance Office Visit 03/26/2020 1:39p Main Office Ruel Parmar MD E66.8 Other obesity G47.33 Obstructive sleep apnea (myles lt) (pediatric) E78.00 Pure hypercholesterolemia, u nspecified I50.32 Chronic diastolic (congestiv e) heart failure Office Visit 02/28/2020 3:47p Main Office Ruel Parmar MD I50.3 2 Chronic diastolic (congestive) heart failure E78.00 Pure hypercholesterolemia, u nspecified G47.33 Obstructive sleep apnea (myles lt) (pediatric) E66.8 Other obesity Office Visit 01/26/2020 1:23p Main Office Ruel Parmar MD I50.3 2 Chronic diastolic (congestive) heart failure E78.00 Pure hypercholesterolemia, u nspecified G47.33 Obstructive sleep apnea (myles lt) (pediatric) E66.8 Other obesity Office Visit 12/27/2019 12:56p Main Office Ruel Parmar MD I50.3 2 Chronic diastolic (congestive) heart failure E78.00 Pure hypercholesterolemia, u nspecified G47.33 Obstructive sleep apnea (myles lt) (pediatric) E66.8 Other obesity Assessments Date Code Description Provider 04/29/2020 I50.32 Chronic diastolic (congestive) h eart failure Ruel Parmar MD 04/29/2020 I11.0 Hypertensive heart disease with heart failure Ruel Parmar MD 04/29/2020 E78.00 Pure hypercholesterolemia, unspe cified Ruel Parmar MD 04/16/2020 I25.10 Atherosclerotic heart disease of [place] coronary artery with Stress Nuclear/Reg Treadmill 04/16/2020 Z95.5 Presence of coronary angioplasty implant and graft Stress Nuclear/Reg Treadmill 04/02/2020 I25.10 Atherosclerotic heart disease of [place] coronary artery with Sarah Nickerson PA-C 04/02/2020 Z95.5 Presence of coronary angioplasty implant and graft JORDIN Avila-C 04/02/2020 I50.32 Chronic diastolic (congestive) h eart failure Sarah Nickerson PA-C 04/02/2020 I11.0 Hypertensive heart disease with heart failure JORDIN Avila-C 04/02/2020 I95.1 Orthostatic hypotension Sarah lopez PA-C 04/02/2020 E78.00 Pure hypercholesterolemia, unspe cified Sarah Nickerson PA-C 04/02/2020 Z71.3 Dietary counseling and surveilla nce JORDIN Avila-C 03/26/2020 E66.8 Other obesity Ruel Parmar MD 03/26/2020 G47.33 Obstructive sleep apnea (adult) (pediatric) Ruel Parmar MD 03/26/2020 E78.00 Pure hypercholesterolemia, unspe cified Ruel Parmar MD 03/26/2020 I50.32 Chronic diastolic (congestive) h eart failure Ruel Parmar MD 02/28/2020 I50.32 Chronic diastolic (congestive) h eart failure Ruel Parmar MD 02/28/2020 E78.00 Pure hypercholesterolemia, unspe cified Ruel Parmar MD 02/28/2020 G47.33 Obstructive sleep apnea (adult) (pediatric) Ruel Parmar MD 02/28/2020 E66.8 Other obesity Ruel Parmar MD 01/26/2020 I50.32 Chronic diastolic (congestive) h eart failure Ruel Parmar MD 01/26/2020 E78.00 Pure hypercholesterolemia, unspe cified Ruel Parmar MD 01/26/2020 G47.33 Obstructive sleep apnea (adult) (pediatric) Ruel Parmar MD 01/26/2020 E66.8 Other obesity Ruel Parmar MD 12/27/2019 I50.32 Chronic diastolic (congestive) h eart failure Ruel Parmar MD 12/27/2019 E78.00 Pure hypercholesterolemia, unspe cified Ruel Parmar MD 12/27/2019 G47.33 Obstructive sleep apnea (adult) (pediatric) Ruel Parmar MD 12/27/2019 E66.8 Other obesity Ruel Parmar MD Plan of Treatment Future Appointment(s):* 10/02/2020 10:45 am - Sarah Nickerson PA-C at Main Office 04/02/2020 - Sarah Nickerson PA-C* I25.10 Atherosclerotic heart disease of [place] coronary artery with* New Labs:* Comprehensive Metabolic Profil, Scheduled: 09/23/20 * Lipid Panel, Scheduled: 09/23/20 * Z95.5 Presence of coronary angioplasty implant and graft * I50.32 Chronic diastolic (congestive) heart failure* New Labs:* Comprehensive Metabolic Profil, Scheduled: 09/23/20 * Recommendations:* Follow a 2 grams sodium diet and 50 ounces fluid restriction per 24 hour and do daily weights. Call the office for weight gain of 3 lbs or more. * I11.0 Hypertensive heart disease with heart failure * I95.1 Orthostatic hypotension * E78.00 Pure hypercholesterolemia, unspecified* New Labs:* Comprehensive Metabolic Profil, Scheduled: 09/23/20 * Lipid Panel, Scheduled: 09/23/20 * Z71.3 Dietary counseling and surveillance* Recommendations:* Follow a low fat/low cholesterol diet and do as much aerobic exercise as you can tolerate. * All * Follow up:* 6 month follow up. Functional Status Functional Condition Comment Date Status Independent with all ADL's Activ e Requires assistance with ambulating uses cane for balance Active Mental Status Description No Information Available Referrals Description No Information Available
--- OUTSIDE RECORDS SUMMARY | 2020-07-16 13:51 | CCD | Continuity of Care Document ---
Author Organization Unknown Address Unknown Phone Unavailable Care Team Providers Care Enrichment Teacher Name Role Phone Tate Hamilton MD AUTM [phone] Ashley Contreras MD AUTM [phone] Ariel Gonzalez MD AUTM [phone] Charanjit Kelley MD AUTM [phone] Ivana Bryant MD AUTM [phone] Favio Peralta MD AUTM [phone] Francia Cummins RN ANP AUTM [phone] Alison Chen MD AUTM [phone] Janice Lopez BORING MACHINE SET UP OPERATOR AUTM [phone] Italia Vega AUTM [phone] Problems Active Problems Provider Date Coronary arteriosclerosis [...] MD Onset: 11/03/2013 Obstructive sleep apnea syndrome Sarah Nickerson PA-C Onset: 07/08/2016 Dietary management surveillance Sarah Nickerson [...] 0.4mg Capsules 1 by mouth every day Celiacaps Tate Hamilton MD 11/02/2013 Aspirin 81mg Tablets [...] 4.0 3.5-4.7 CBC without Differential 03/26/2020 [facility] ([facility])- - White Blood Count 5.8 4.3-10.9 Red Blood Count 3.48 Low 4.70-6.20 Platelets 240 130-400 Hemoglobin 10.9 Low 13.0-17.0 Hematocrit 34.9 Low 39.0-50.0 Procedures Date Code Description Status 04/16/2020 07007 Treadmill/Pharmacological Monito ring Completed 04/16/2020 41208 Myocardial Perfusion Spect Multi ple Completed 04/02/2020 35865 ECG 12-Lead Completed Medical Devices Description No Information Available Encounters Type Date Location Provider Dx Diagnosis Office Visit 04/02/2020 10:45a Main Office Sarah Nickerson PA-C I25.1 0 Athscl heart disease of [place] coronary artery w/o ang pctrs Z95.5 Presence [...] MD 04/16/2020 I25.10 Atherosclerotic heart disease of [place] coronary artery with Stress Nuclear/Reg Treadmill 04/16/2020 Z95.5 Presence of coronary angioplasty implant and graft Stress Nuclear/Reg Treadmill 04/02/2020 I25.10 Atherosclerotic heart disease of [place] coronary artery with Sarahfelisa Nickerson, PA-C 04/02/2020 Z95.5 Presence of coronary angioplasty implant and graft Sarah Nickerson, PA-C 04/02/2020 I50.32 Chronic diastolic (congestive) h eart failure Sarah Nickerson, PA-C 04/02/2020 I11.0 Hypertensive heart disease with heart failure Sarah Nickerson, PA-C 04/02/2020 I95.1 Orthostatic hypotension Sarah lopez, PA-C 04/02/2020 E78.00 Pure hypercholesterolemia, unspe cified Sarah Nickerson, PA-C 04/02/2020 Z71.3 Dietary counseling and surveilla nce Sarah Nickerson, PA-C 03/26/2020 E66.8 Other obesity Ruel Parmar MD [...] Nickerson PA-C* I25.10 Atherosclerotic heart disease of [place] coronary artery with* New Labs:* Comprehensive Metabolic [...]
--- OUTSIDE RECORDS SUMMARY | 2020-07-16 13:51 | CCD | Continuity of Care Document ---
Author Author Hank PARMAR MD Organization Unknown Address [address] [place] [address] Phone [phone] Care Team Providers Care [employer] Name Role Phone Tate Hamilton MD AUTM [phone] Ashley Contreras MD AUTM [phone] Ariel Gonzalez MD AUTM [phone] Charanjit Kelley MD AUTM [phone] Ivana Bryant MD AUTM [phone] Favio Peralta MD AUTM [phone] Francia Cummins RN ANP AUTM [phone] Alison Chen MD AUTM [phone] Janice Lopez STOVE MECHANIC AUTM [phone] Italia Vega AUTM [phone] Problems Active Problems Provider Date Coronary arteriosclerosis [...] Test Result H/L Range Note Renal Profile 03/26/2020 [facility] ([facility])- - [...] 39.0-50.0 Procedures Date Code Description Status 04/16/2020 65371 Treadmill/Pharmacological Monito ring Completed 04/16/2020 92604 Myocardial Perfusion Spect Multi ple Completed 04/02/2020 98253 ECG 12-Lead Completed Medical Devices Description No Information Available Encounters Type Date Location Provider Dx Diagnosis Office Visit 04/02/2020 10:45a Main Office Sarah Nickerson PA-C I25.1 0 Athscl heart disease of [place] coronary artery w/o ang pctrs Z95.5 Presence [...] lt) (pediatric) E66.8 Other obesity Office Visit 11/23/2019 10:47a Main Office Ruel Parmar MD I25.1 0 Athscl heart disease of [place] coronary artery w/o ang pctrs Z95.5 Presence of coronary angiopl asty implant and graft I50.32 Chronic diastolic (congestiv e) heart failure I11.0 Hypertensive heart disease w ith heart failure Assessments Date Code Description Provider 04/16/2020 I25.10 Atherosclerotic heart disease of [place] coronary artery with Stress Nuclear/Reg Treadmill 04/16/2020 Z95.5 Presence of coronary angioplasty implant and graft Stress Nuclear/Reg Treadmill 04/02/2020 I25.10 Atherosclerotic heart disease of [place] coronary artery with Sarah Nickerson, PA-C 04/02/2020 Z95.5 Presence of coronary angioplasty implant and graft Sarah Nickerson, PA-C 04/02/2020 I50.32 Chronic diastolic (congestive) h eart failure Sarah Nickerson, PA-C 04/02/2020 I11.0 Hypertensive heart disease with heart failure Sarah Housealanis, PA-C 04/02/2020 I95.1 Orthostatic hypotension Sarah lopez, [...] 12/27/2019 E66.8 Other obesity Ruel Parmar MD 11/23/2019 I25.10 Atherosclerotic heart disease of [place] coronary artery with Ruel Parmar MD 11/23/2019 Z95.5 Presence of coronary angioplasty implant and graft Ruel Parmar MD 11/23/2019 I50.32 Chronic diastolic (congestive) h eart failure Ruel Parmar MD 11/23/2019 I11.0 Hypertensive heart disease with heart failure Ruel Parmar MD Plan of Treatment Future Appointment(s):* 10/02/2020 10:45 am - Sarah Nickerson PA-C at Main Office 04/02/2020 - Sarah Nickerson PA-C* I25.10 Atherosclerotic heart disease of [place] coronary artery with* New Labs:* Comprehensive Metabolic [...]
--- OUTSIDE RECORDS SUMMARY | 2020-07-16 13:51 | CCD ---
Author Author [facility] Organization [facility] Address Unknown Phone Unavailable Care Team Providers Care Hadoop Application Developer Name Role Phone LacywRaquel PA Unavailable Unavailable Symenow, Raquel Smith PA Unavailable Unavailable Symenow, Raquel Smith PA Unavailable Unavailable Symenow, Raquel Smith PA Unavailable Unavailable Symenow, Raquel Smith PA Unavailable Unavailable Symenow, Raquel Smith PA Unavailable Unavailable Symenow, Raquel Smith PA Unavailable Unavailable Symenow, Raquel Smith PA Unavailable Unavailable Symenow, Raquel Smith PA Unavailable Unavailable Symenow, Raquel Smith PA Unavailable Unavailable Symenow, Raquel Smith PA Unavailable Unavailable Symenow, Raquel Smith PA Unavailable Unavailable Symenow, Raquel Smith PA Unavailable Unavailable Symenow, Raquel Smith PA Unavailable Unavailable Symenow, Raquel Smith PA Unavailable Unavailable Symenow, Raquel Smtih PA Unavailable Unavailable Symenow, Raquel Smith PA Unavailable Unavailable Symenow, Raquel Smith PA Unavailable Unavailable Symenow, Raquel Smith PA Unavailable Unavailable Symenow, Raquel Smith PA Unavailable Unavailable Symenow, Raquel Sarah PA Unavailable Unavailable Symenow, Raquel Sarah PA Unavailable Unavailable Symenow, Raquel Sarah PA Unavailable Unavailable Symenow, Raquel Sarah PA Unavailable Unavailable Symenow, Raquel Sarah PA Unavailable Unavailable Symenow, Raquel Sarah PA Unavailable Unavailable Symenow, Raquel Sarah PA Unavailable Unavailable Symenow, Raquel Sarah PA Unavailable Unavailable Symenow, Raquel Sarah PA Unavailable Unavailable Symenow, Raquel Sarah PA Unavailable Unavailable Symenow, Raquel Sarah PA Unavailable Unavailable Symenow, Raquel Sarah PA Unavailable Unavailable Symenow, Raquel Sarah PA Unavailable Unavailable Symenow, Raquel Sarah PA Unavailable Unavailable Symenow, Raquel Sarah PA Unavailable Unavailable Symenow, Raquel Sarah PA Unavailable Unavailable ANTECOL, Betina SIMPSON MD Unavailable Unavailable ANTECOL, Betina SIMPSON MD Unavailable Unavailable ANTECOL, Betina SIMPSON MD Unavailable Unavailable ANTECOL, Betina SIMPSON MD Unavailable Unavailable ANTECOL, Betina SIMPSON MD Unavailable Unavailable ANTECOL, Betina SIMPSON MD Unavailable Unavailable ANTECOL, Betina SIMPSON MD Unavailable Unavailable ANTECOL, Betina SIMPSON MD Unavailable Unavailable ANTECOL, Betina SIMPSON MD Unavailable Unavailable ANTECOL, Betina SIMPSON MD Unavailable Unavailable ANTECOL, Betina SIMPSON MD Unavailable Unavailable ANTECOL, Betina SIMPSON MD Unavailable Unavailable ANTECOL, Betina SIMPSON MD Unavailable Unavailable ANTECOL, Betina SIMPSON MD Unavailable Unavailable ANTECOL, Betina SIMPSON MD Unavailable Unavailable ANTECOL, Betina SIMPSON MD Unavailable Unavailable ANTECOL, Betina SIMPSON MD Unavailable Unavailable ANTECOL, Betina SIMPSON MD Unavailable Unavailable ANTECOL, Betina SIMPSON MD Unavailable Unavailable ANTECOL, Betina SIMPSON MD Unavailable Unavailable ANTECOL, Betina SIMPSON MD Unavailable Unavailable ANTECOL, Betina SIMPSON MD Unavailable Unavailable ANTECOL, Betina SIMPSON MD Unavailable Unavailable ANTECOL, Betina SIMPSON MD Unavailable Unavailable ANTECOL, Betina SIMPSON MD Unavailable Unavailable ANTECOL, Betina SIMPSON MD Unavailable Unavailable ANTECOL, Betina SIMPSON MD Unavailable Unavailable ANTECOL, Betina SIMPSON MD Unavailable Unavailable ANTECOL, Betina SIMPSON MD Unavailable Unavailable ANTECOL, Betina SIMPSON MD Unavailable Unavailable ANTECOL, Betina SIMPSON MD Unavailable Unavailable ANTECOL, Betina SIMPSON MD Unavailable Unavailable ANTECOL, Betina SIMPSON MD Unavailable Unavailable ANTECOL, Betina SIMPSON MD Unavailable Unavailable ANTECOL, Betina SIMPSON MD Unavailable Unavailable ANTECOL, Betina SIMPSON MD Unavailable Unavailable ANTECOL, Betina SIMPSON MD Unavailable Unavailable ANTECOL, Betina SIMPSON MD Unavailable Unavailable ANTECOL, Betina SIMPSON MD Unavailable Unavailable ANTECOL, Betina SIMPSON MD Unavailable Unavailable ANTECOL, Betina SIMPSON MD Unavailable Unavailable ANTECOL, Betina SIMPSON MD Unavailable Unavailable ANTECOL, Betina SIMPSON MD Unavailable Unavailable ANTECOL, Betina SIMPSON MD Unavailable Unavailable ANTECOL, Betina SIMPSON MD Unavailable Unavailable ANTECOL, Betina SIMPSON MD Unavailable Unavailable ANTECOL, Betina SIMPSON MD Unavailable Unavailable ANTECOL, Betina SIMPSON MD Unavailable Unavailable ANTECOL, Betina SIMPSON MD Unavailable Unavailable ANTECOL, Betina SIMPSON MD Unavailable Unavailable ANTECOL, Betina SIMPSON MD Unavailable Unavailable ANTECOL, Betina SIMPSON MD Unavailable Unavailable ANTECOL, Betina SIMPSON MD Unavailable Unavailable ANTECOL, Betina SIMPSON MD Unavailable Unavailable ANTECOL, Betina SIMPSON MD Unavailable Unavailable Trickey, J Italia PA Unavailable Unavailable Trickey, J Italia PA Unavailable Unavailable Trickey, J Italia PA Unavailable Unavailable Trickey, J Italia PA Unavailable Unavailable Trickey, J Italia PA Unavailable Unavailable Trickey, J Italia PA Unavailable Unavailable Trickey, J Italia PA Unavailable Unavailable Trickey, J Italia PA Unavailable Unavailable Trickey, J Italia PA Unavailable Unavailable Trickey, J Italia PA Unavailable Unavailable Trickey, J Italia PA Unavailable Unavailable Trickey, J Italia PA Unavailable Unavailable Trickey, J Italia PA Unavailable Unavailable Trickey, J Italia PA Unavailable Unavailable Trickey, J Italia PA Unavailable Unavailable Trickey, J Italia PA Unavailable Unavailable Trickey, J Italia PA Unavailable Unavailable Trickey, J Italia PA Unavailable Unavailable Trickey, J Italia PA Unavailable Unavailable Trickey, J Italia PA Unavailable Unavailable Trickey, J Italia PA Unavailable Unavailable Trickey, J Italia PA Unavailable Unavailable Trickey, J Italia PA Unavailable Unavailable Trickey, J Italia PA Unavailable Unavailable Trickey, J Italia PA Unavailable Unavailable Trickey, J Italia PA Unavailable Unavailable Trickey, J Italia PA Unavailable Unavailable Trickey, J Italia PA Unavailable Unavailable Trickey, J Italia PA Unavailable Unavailable Trickey, J Italia PA Unavailable Unavailable Trickey, J Italia PA Unavailable Unavailable Trickey, J Italia PA Unavailable Unavailable Trickey, J Italia PA Unavailable Unavailable Trickey, J Italia PA Unavailable Unavailable Trickey, J Italia PA Unavailable Unavailable Trickey, J Italia PA Unavailable Unavailable Trickey, J Italia PA Unavailable Unavailable Trickey, J Italia PA Unavailable Unavailable Trickey, J Italia PA Unavailable Unavailable Trickey, J Italia PA Unavailable Unavailable Trickey, J Italia PA Unavailable Unavailable Trickey, Cinthia Guerreroa PA Unavailable Unavailable Trickey, J Italia PA Unavailable Unavailable Trickey, Cinthia Guerreroa PA Unavailable Unavailable Trickey, Cinthia Guerreroa PA Unavailable Unavailable Trickey, Cinthia Guerreroa PA Unavailable Unavailable Trickey, Cinthia Guerreroa PA Unavailable Unavailable Trickey, Cinthia Guerreroa PA Unavailable Unavailable Trickey, Cinthia Guerreroa PA Unavailable Unavailable Trickey, Cinthia Guerreroa PA Unavailable Unavailable Trickey, Cinthia Italia PA Unavailable Unavailable Trickey, Cinthia Italia PA Unavailable Unavailable Madeline, Rachel W Elsy INTERNATIONAL MARKETING MANAGER-C Unavailable Unavailabl e Madeline, Reginabetina W Elsy INTERNATIONAL MARKETING MANAGER-C Unavailable Unavailabl e Madeline, Regina W Elsy INTERNATIONAL MARKETING MANAGER-C Unavailable Unavailabl e Madeline, Regina W Elsy INTERNATIONAL MARKETING MANAGER-C Unavailable Unavailabl e Madeline, Regina W Elsy INTERNATIONAL MARKETING MANAGER-C Unavailable Unavailabl e Madeline, Regina W Elsy INTERNATIONAL MARKETING MANAGER-C Unavailable Unavailabl e Madeline, Regina W Elsy INTERNATIONAL MARKETING MANAGER-C Unavailable Unavailabl e Madeline, Regina W Elsy INTERNATIONAL MARKETING MANAGER-C Unavailable Unavailabl e Madeline, Regina W Elsy INTERNATIONAL MARKETING MANAGER-C Unavailable Unavailabl e Madeline, Regina W Elsy INTERNATIONAL MARKETING MANAGER-C Unavailable Unavailabl e Madeline, Regina W Elsy INTERNATIONAL MARKETING MANAGER-C Unavailable Unavailabl e Madeline, Regina W Elsy INTERNATIONAL MARKETING MANAGER-C Unavailable Unavailabl e Madeline, Regina W Elsy INTERNATIONAL MARKETING MANAGER-C Unavailable Unavailabl e Madeline, Regina W Elsy INTERNATIONAL MARKETING MANAGER-C Unavailable Unavailabl e Madeline, Regina W Elsy INTERNATIONAL MARKETING MANAGER-C Unavailable Unavailabl e Madeline, Regina W Elsy INTERNATIONAL MARKETING MANAGER-C Unavailable Unavailabl e Madeline, Regina W Elsy INTERNATIONAL MARKETING MANAGER-C Unavailable Unavailabl e Madeline, Regina W Elsy INTERNATIONAL MARKETING MANAGER-C Unavailable Unavailabl e Madeline, Regina W Elsy INTERNATIONAL MARKETING MANAGER-C Unavailable Unavailabl e Madeline, Regina W Elsy INTERNATIONAL MARKETING MANAGER-C Unavailable Unavailabl e Madeline, Regina W Elsy INTERNATIONAL MARKETING MANAGER-C Unavailable Unavailabl e Madeline, Reginabetina W Elsy INTERNATIONAL MARKETING MANAGER-C Unavailable Unavailabl e Madeline, Reginabetina W Elsy INTERNATIONAL MARKETING MANAGER-C Unavailable Unavailabl e Madeline, Reginabetina W Elsy INTERNATIONAL MARKETING MANAGER-C Unavailable Unavailabl e Madeline, Reginah W Elsy INTERNATIONAL MARKETING MANAGER-C Unavailable Unavailabl e Madeline, Reginabetina W Elsy INTERNATIONAL MARKETING MANAGER-C Unavailable Unavailabl e Madeline, Reginah W Elsy INTERNATIONAL MARKETING MANAGER-C Unavailable Unavailabl e Madeline, Reginah W Elsy INTERNATIONAL MARKETING MANAGER-C Unavailable Unavailabl e Madeline, Reginabetina W Elsy INTERNATIONAL MARKETING MANAGER-C Unavailable Unavailabl e Madeline, Miguelinabetina W Elsy INTERNATIONAL MARKETING MANAGER-C Unavailable Unavailabl e Madeline, Rachel Chin INTERNATIONAL MARKETING MANAGER-C Unavailable Unavailabl e Madeline, Rachel Chin INTERNATIONAL MARKETING MANAGER-C Unavailable Unavailabl e Mayuri MCDONALDEW DO Unavailable [phone] Mayuri MCDONALDEW DO Unavailable [phone] Mayuri MCDONALDEW DO Unavailable [phone] Mayuri MCDONALDEW DO Unavailable [phone] Mayuri MCDONALDEW DO Unavailable [phone] Mayuri MCDONALDEW DO Unavailable [phone] Mayuri MCDONALDEW DO Unavailable [phone] Mayuri MCDONALDEW DO Unavailable [phone] Mayuri MCDONALD EL DO Unavailable [phone] Mayuri MCDONALDEW DO Unavailable [phone] Mayuri MCDONALDEW DO Unavailable [phone] Mayuri MCDONALDEW DO Unavailable [phone] Mayuri MCDONALDEW DO Unavailable [phone] Mayuri MCDONALDEW DO Unavailable [phone] Mayuri MCDONALD EL DO Unavailable [phone] Mayuri MCDONALD DO Unavailable [phone] Mayuri MCDONALD DO Unavailable [phone] Mayuri MCDONALD DO Unavailable [phone] Mayuri MCDONALD DO Unavailable [phone] Mayuri MCDONALD DO Unavailable [phone] Mayuri MCDONALD DO Unavailable [phone] Re-disclosure Warning The records that you are about to access may contain information from federally-assisted alcohol or drug abuse programs. If such information is present, then the following federally mandated warning applies: This information has been disclosed to you from records protected by federal confidentiality rules (42 CFR part 2). The federal rules prohibit you from making any further disclosure of this information unless further disclosure is expressly permitted by the written consent of the person to whom it pertains or as otherwise permitted by 42 CFR part 2. A general authorization for the release of medical or other information is NOT sufficient for this purpose. The Federal rules restrict any use of the information to criminally investigate or prosecute any alcohol or drug abuse patient.The records that you are about to access may contain highly sensitive health information, the redisclosure of which is protected by Article 27-F of the [facility] Public Health law. If you continue you may have access to information: Regarding HIV / AIDS; Provided by facilities licensed or operated by the [facility] Office of Mental Health; or Provided by the [facility] Office for People With Developmental Disabilities. If such information is present, then the following [facility] mandated warning applies: This information has been disclosed to you from confidential records which are protected by state law. State law prohibits you from making any further disclosure of this information without the specific written consent of the person to whom it pertains, or as otherwise permitted by law. Any unauthorized further disclosure in violation of state law may result in a fine or assisted sentence or both. A general authorization for the release of medical or other information is NOT sufficient authorization for further disc losure. Allergies and Adverse Reactions Type Description Substance Reaction Status Data Source(s ) Drug allergy lisinopril lisinopril DIZZY "FELL DOWN A LOT" [facility] Family History Family Member Name Family Member Gender Family Member Status Date o f Status Description Data Source(s) Unknown Unknown Problem [facility]) Unknown Male Problem [facility] ([facility]) Encounters Encounter Providers Location Date Indications Data Source(s ) Office Visit Attender: TATIANA FIORE MD Main Office 04/29/2020 10: 13:00 AM EDT [facility] ([facility]) Outpatient Attender: Italia BRENNER Main office - [facility] 04/08/2020 10:00:00 AM EDT [facility] ([facility]) Outpatient Attender: Sarah BRENNER Main Office 04/02/2020 10:45:00 AM EDT [facility] ([facility]) Office Visit Attender: TATIANA FIORE MD Main Office 03/26/2020 01: 39:00 PM EDT [facility] ([facility]) Outpatient Attender: EL MCDONALD DO 0 03/18/2020 06:54:00 AM EDT - 03/18/2020 09:25:00 AM EDT [facility] Patient discharged. Outpatient Attender: Elsy RITTER-[facility] EMERGENCY ROOM-LAB REF 03/13/2020 08:20:00 AM EDT - 03/13/2020 08:20:00 AM EDT [facility] 03/10/2020 12:00:00 AM EDT eCW1 ([facility]) Office Visit Attender: TATIANA FIORE MD Main Office 02/28/2020 03: 47:00 PM EDT [facility] ([facility]) Outpatient Attender: EL MCDONALD DO 0 02/12/2020 10:10:00 AM EDT - 02/12/2020 12:15:00 PM EDT [facility] Patient discharged. Outpatient Attender: Elsy RITTER-[facility] EMERGENCY ROOM-LAB REF 02/07/2020 11:13:00 AM EDT - 02/07/2020 11:13:00 AM EDT [facility] 02/06/2020 12:00:00 AM EDT eCW1 ([facility]) Office Visit Attender: TATIANA FIORE MD Main Office 01/26/2020 01: 23:00 PM EDT [facility] ([facility]) Office Visit Attender: TATIANA FIORE MD Main Office 12/27/2019 12: 56:00 PM EDT [facility] ([facility]) Office Visit Attender: TATIANA FIORE MD Main Office 11/23/2019 10: 47:00 AM EDT [facility] ([facility]) Outpatient Attender: EL MCDONALD DO 11/13/2019 07:30 :00 AM [facility] Office Visit Attender: TATIANA FIORE MD Main Office 10/24/2019 12: 54:00 PM EDT [facility] ([facility]) Outpatient Attender: LE MCDONALD DO 10/16/2019 07:30 :00 AM [facility] Outpatient Attender: Sarah BRENNER Main Office 10/06/2019 10:15:00 AM EDT [facility] ([facility]) Insurance Providers Payer name Policy type / Coverage type Policy ID Covered democrat ID Covered democrat's relationship to cardenas Policy Cardenas Plan Information MEDICARE [id number] SP [id number] BCBS FEDERAL EMPLOYEE PROGRAM [id number] SP [id number] FOR LIFE [id number] SP [id number] [facility] FEDERAL SERVICES [id number] S [id number] [place] [id number] S [id number] [place] MEDICARE DIVISION [id number] S [id number] MEDICARE - [place] [id number] S [id number] [facility] FEDERAL SERVICES [id number] S [id number] MEDICARE C [id number] S [id number] [id number] FOR LIFE O [id number] S [id number] BS [place] FEDERAL S [id number] S [id number] E[place] WPS [id number] S [id number] [facility] FEDERAL SERVICES [id number] S [id number] For Life Secondary ONLY [id number] 0 [id number] [facility] [id number] 0 [id number] Medicare Part B [facility] [id number] 0 [id number] For Life Medigap Part B [id number] Self [id number] Federal BC/BS Commercial [id number] Self [id number] Medicare Part B Medicare Primary [id number] Self [id number] For Life Secondary ONLY [id number] 0 [id number] For Life - WPS Medigap Part B [id number] Self [id number] Medicare (Part B) Medicare Primary [id number] Self [id number] BCBS Federal Medigap Part B [id number] Self [id number] For Life - [place] Medigap Part B [id number] Self [id number] Medicare (Part B) Medicare Primary [id number] Self [id number] FOR LIFE U [id number] Self [id number] MEDICARE A [id number] Self [id number] [id number] BLUE CARD C [id number] Self [id number] MEDICARE PI PI PI YASH BARRY BCBS PI PI MEDICARE [id number] Mulu [id number] A BS Federal Medigap Part B [id number] Self [id number] [place] Primary [id number] Self [id number] MEDICARE [id number] SP [id number] A86 MEDICARE [id number] SP [id number] A For Life Medigap Part B [id number] Self [id number] Federal BC/BS Commercial [id number] Self [id number] Medicare Part B Medicare Primary [id number] Self [id number] For Life Reg 1 Medigap Part B [id number] Self [id number] BCBS Federal Medigap Part B [id number] Self [id number] Medicare - [facility] Medicare Primary [id number] Self [id number] For Life - WPS Medigap Part B [id number] Self [id number] Medicare (Part B) Medicare Primary [id number] Self [id number] For Life Medigap Part B [id number] Self [id number] Federal BC/BS Commercial [id number] Self [id number] Medicare Part B Medicare Primary [id number] Self [id number] FOR LIFE [id number] SP [id number] BCBS FEDERAL EMPLOYEE PROGRAM [id number] SP [id number] For Life Medigap Part B [id number] Self [id number] Federal BC/BS Commercial [id number] Self [id number] Medicare Part B Medicare Primary [id number] Self [id number] For Life - [place]PS Medigap Part B [id number] Self [id number] Medicare (Part B) Medicare Primary [id number] Self [id number] For Life Reg 1 Medigap Part B [id number] Self [id number] BCBS Federal Medigap Part B [id number] Self [id number] Medicare - [facility] Medicare Primary [id number] Self [id number] Healthnet Federal Service Medigap Part B [id number] Self [id number] BS Fed Plan Medigap Part B [id number] Self [id number] Bshmo ZFC,Yot,ZFH,Ymb,ZFP Health Maintenance Organization (HMO) YOP [id number] Self [id number] Medicare Dme Supplies Medigap Part B [id number] Self [id number] [place] Primary [id number] Self [id number] [facility] Federal Service Medigap Part B [id number] Self [id number] BS Fed Plan Medigap Part B [id number] Self [id number] Bshmo ZFC,Yot,ZFH,Ymb,ZFP Health Maintenance Organization (HMO) YOP [id number] Self [id number] Medicare Dme Supplies Medigap Part B [id number] Self [id number] [place] Primary [id number] Self [id number] EXCELLUS BCBS FEDERAL [id number] SP [id number] FOR LIFE -O/P [id number] 18 [id number] [facility] FEDERAL -O/P [id number] 18 [id number] MEDICARE PART A -O/P [id number] 18 [id number] For Life Medigap Part B [id number] Self [id number] Federal BC/BS Commercial [id number] Self [id number] Medicare Part B Medicare Primary [id number] Self [id number] For Life - WPS Medigap Part B [id number] Self [id number] Medicare (Part B) Medicare Primary [id number] Self [id number] [employer]net Federal Service Medigap Part B [id number] Self [id number] BS Fed Plan Medigap Part B [id number] Self [id number] Bshmo ZFC,Yot,ZFH,Ymb,ZFP Health Maintenance Organization (HMO) YOP [id number] Self [id number] Medicare [facility] Medicare Primary [id number] Self [id number] Healthnet Federal Service Medigap Part B [id number] Self [id number] BS Fed Plan Medigap Part B [id number] Self [id number] Bshmo ZFC,Yot,ZFH,Ymb,ZFP Health Maintenance Organization (HMO) YOP [id number] Self [id number] [place] Primary [id number] Self [id number] For Life - WPS Medigap Part B [id number] Self [id number] Medicare (Part B) Medicare Primary [id number] Self [id number] MEDICARE [id number] SP [id number] A Medicare (Part B) Medicare Primary Self For Life - WPS Medigap Part B Self BC/BS Federal Medigap Part B Self MEDICARE [id number] SP [id number] A Medicare Medicare Primary Self BC BS [place] FEDERAL [id number] SP [id number] MEDICARE P [id number] S [id number] A [id number] Mulu [id number] MEDICARE [id number] Mulu [id number] A86 EXCELLUS BCBS [id number] Mulu [id number] 162 [id number] Mulu [id number] EXCELLUS BCBS [id number] Mulu [id number] Problems, Conditions, and Diagnoses Code Display Name Description Problem Type Effective Dates Data Source(s) H52.202 Unspecified astigmatism, left eye UNSPECIFIED TIGMATISM, LEFT EYE Diagnosis 03/18/2020 06:54:00 AM [facility] H25.12 Age-related nuclear cataract, left eye A GE-RELATED NUCLEAR CATARACT, LEFT EYE Diagnosis [facility] Encounter for other preprocedural examin ation ENCOUNTER FOR OTHER PREPROCEDURAL EXAMIN Diagnosis 03/13/2020 08:20:00 AM EDT [facility] Z98.41 Cataract extraction status, right eye CA TARACT EXTRACTION STATUS, RIGHT EYE Diagnosis 02/12/2020 10:10:00 AM [facility] H52.31 Anisometropia ANISOMETROPIA Diagnosis 02/12/2020 10:10:00 AM [facility] Surgeries/Procedures Procedure Description Date Indications Data Source(s) MYOCARDIAL SPECT MULTIPLE STUDIES 04/16/2020 12:00:00 AM EDT [facility] ([facility]) CV STRS TST XERS&/OR RX CONT ECG PHYS SI&R 04/16/2020 12:00:00 AM EDT [facility] ([facility]) ECG ROUTINE ECG W/LEAST 12 LDS W/I&R 04/02/2020 12:00: 00 AM EDT [facility] ([facility]) ECG ROUTINE ECG W/LEAST 12 LDS W/I&R 10/06/2019 12:00: 00 AM EDT [facility] ([facility]) Results ID Date Data Source [id number] 05/28/2020 12:36:00 PM EST [facility] Name Value Range Interpretation Code Description Data Alia rce(s) Supporting Document(s) Magnesium Level 2.14 [facility] ([facility]) ID Date Data Source [id number] 05/28/2020 12:36:00 PM EST [facility] ([facility] Name Value Range Interpretation Code Description Data Alia rce(s) Supporting Document(s) White Blood Count 5.2 4.3-10.9 [facility] ([facility]) Red Blood Count 3.32 4.70-6.20 [facility] ([facility]) Platelets 195 130-400 [facility] Hemoglobin 10.6 13.0-17.0 [facility] ([facility]) Hematocrit 32.6 39.0-50.0 [facility] ([facility]) ID Date Data Source [id number] 05/28/2020 12:36:00 PM EST [facility] ([facility] Name Value Range Interpretation Code Description Data Alia rce(s) Supporting Document(s) Glucose 105 70-100 [facility] Creatinine 1.2 0.6-1.5 [facility] ([facility]) Blood Urea Nitrogen 48.1 5-21 [facility] ([facility]) Glomerular filtration rate/1.73 sq M.pre dicted [Volume Rate/Area] in Serum or Plasma by Creatinine-based formula (MDRD) 60 [facility] ([facility]) Sodium 137.6 136-146 [facility] ([facility]) Potassium 4.89 3.5-5.3 [facility] Chloride 97.6 98-110 [facility] ([facility]) Carbon Dioxide 31.3 20-32 [facility] ([facility]) Calcium 8.9 8.4-10.4 [facility] ([facility]) Phosphorus 3.6 [facility] ([facility]) Albumin 4.0 3.5-4.7 [facility] ([facility]) ID Date Data Source [id number] 04/18/2020 12:00:00 AM EDT [facility] Gurjit Lopez Film Historian Patient Name: ELLY [id number] Date of : 1950[place] [address] Date of Exam: 04/18/2020#: Fax: [phone] EXAM: ADD VIEWS U/SCLINICAL INFORMATION: Attention urinary bladder. Obtain pre and postvoid urinary bladder volume calculations.The pre-void urinary bladder volume calculation is 116.3 cc and the postvoid urinary bladder volume calculation is 55.1 cc. No gross abnormalitieswere seen. The prostate gland does appear to be causing an undulation ofthe urinary bladder floor. This needs to be correlated clinically.LEN Jeffery/Mykel you for referring ELLY VILCHIS to our office. Electronically Signed - JOHANNA MARTINEZ DO 04/18/20 14:26 Name Value Range Interpretation Code Description Data Alia rce(s) Supporting Document(s) ID Date Data Source [id number] 04/15/2020 12:00:00 AM EDT [facility] Gurjit Borregojorge Film Historian Patient Name: ELLY [id number] Date of : 1950[place] [address] Date of Exam: 04/15/2020#: Fax: [phone] EXAM: US RETROPERITONEAL, COMPLETE(RENAL/AORTA)CLINICAL INFORMATION: Acute renal failure.Comparison renal ultrasound 06/28/2016.RENAL ULTRASONOGRAPHY:Multiple ultrasonographic images of the kidneys were obtained along withrenal doppler imaging.The right kidney measures 10.5 x 4.5 x 4.9 cm, RI: .7. The renalparenchymal echo texture is unremarkable. There are no masses. There isgood corticomedullary differentiation. There is no hydron ephrosis. Thereare no perinephric fluid collections.The left kidney measures 11.7 x 5.4 x 5.4 cm, RI: .74. The renalparenchymal echo texture is unremarkable. There are no masses. There isgood corticomedullary differentiation. There is no hydronephrosis. Thereare no perinephric fluid collections.Evaluation of the urinary bladder shows no gross abnormalities orsignificant changes although the examination was performed solely for thepurpose of identifying urojet phenomenon which was seen bilaterally.Dedicated urinary bladder ultrasonography was no ordered or performed.IMPRESSION:Unremarkable renal ultrasonography.Accredited by the [employer] in General Ultrasound.LEN Jefefry/Mykel you for referring ELLY VILCHIS to our office. Electronically Signed - JOHANNA MARTINEZ DO 04/15/20 10:24 Name Value Range Interpretation Code Description Data Alia rce(s) Supporting Document(s) ID Date Data Source [id number] 04/02/2020 07:17:00 AM EDT [facility] Preoperative Diagnosis: 1. Visually sig nificant nuclear sclerotic cataract, left eye.2. Astigmatism, left eye. Postoperative Diagnosis: 1. Same. Procedure:1. Cataract extraction with use of phacoemulsification, and placement of intraocular lens, AU00T0 21.0 D, left eye, with use of femtosecond laser.2. Placement of limbal relaxing incisions, left eye. Anesthesia: Local with MAC. Complications: None. Postoperative Condition: Stable. Indications for surgery: 1. Blurred vision affecting patient s activities of daily living. Description of procedure: The patient was seen in the preoperative area and properly identified. The correct operative eye was identified and marked. The patient received topical anesthetic, antibiotics, and topical dilating drops. The patient was then transferred to the laser room. The patient was positioned under the laser. A timeout was performed. The laserwas applied. A 4.8mm capsulotomy, nuclear fragmentation and limbal relaxing incisions were created. The patient tolerated the procedure well and was transferred to the operating room. The correct side was re-identified and a timeout was performed. The eye was prepped and draped in a sterile fashion. The eyelids were isolated with Tegaderm tape and the lids were held open with an adjustable speculum. A 1.0mm paracentesis incision was made. Intraocular preservative free Shugarcaine was then injected into the anterior chamber. Viscoelastic was then injected into the anterior chamber through the paracentesis. Using a 2.4mm sharp-tipped keratome, the anterior chamber was entered via a temporal clear cornea incision. Utrata forceps were used to removed the free floating capsulotomy. Hydrodissection was performed with BSS on a blunt cannula until the nucleus was able to rotate freely. The crystalline lens was phacoemulsified and aspirated. Irrigation/aspiration was used to remove the cortical material Cohesive viscoelastic was placed into the capsular bag to deepen it. The implant was pl aced into the capsular bag and allowed to unfold. Placement was confirmed by visualizing the anterior capsulorhexis. Irrigation/aspiration was used to remove the viscoelastic. The clear corneal incision was hydrated with BSS on a blunt cannula. The lens was well positioned. The incisions were then tested for leaks and found to be negative. The eye was then palpated for appropriate pressure and adjusted accordingly with BSS. The eyelid speculum was then carefully removed. A shield was placed over the eye. The patient tolerated the procedure well and was discharge to the recovery unit in a stable condition. Name Value Range Interpretation Code Description Data Alia rce(s) Supporting Document(s) ID Date Data Source [id number] 03/26/2020 03:46:00 PM EDT [facility] ([facility] Name Value Range Interpretation Code Description Data Alia rce(s) Supporting Document(s) White Blood Count 5.8 4.3-10.9 [facility] ([facility]) Red Blood Count 3.48 4.70-6.20 [facility] ([facility]) Platelets 240 130-400 [facility] ([facility]) Hematocrit 34.9 39.0-50.0 [facility] ([facility]) Hemoglobin 10.9 13.0-17.0 [facility] ([facility][1]) ID Date Data Source [id number] 03/26/2020 03:46:00 PM EDT [facility] Name Value Range Interpretation Code Description Data Alia rce(s) Supporting Document(s) Glucose 146 70-100 [facility] Blood Urea Nitrogen 55.9 5-21 [facility] ([facility]) Glomerular filtration rate/1.73 sq M.pre dicted [Volume Rate/Area] in Serum or Plasma by Creatinine-based formula (MDRD) 43 [facility] ([facility]) Creatinine 1.6 0.6-1.5 [facility] ([facility]) Sodium 135.2 136-146 [facility] [place] Potassium 4.5 3.5-5.3 [facility] [place] Chloride 93.2 98-110 [facility] ([facility] [place] Carbon Dioxide 30.4 20-32 [facility] ([facility] Calcium 9.0 8.4-10.4 [facility] ([facility] Phosphorus 4.3 [facility] ([facility]) Albumin 4.0 3.5-4.7 [facility] ([facility] [place] ID Date Data Source [id number] 03/14/2020 02:05:00 PM EDT [facility] Name Value Range Interpretation Code Description Data Alia rce(s) Supporting Document(s) SARS-CoV-2, TAPAN Not Detected Not Detected [facility] This nucleic acid amplification test was developed and its performancecharacteristics determined by [employer]. Nucleic acidamplification tests include PCR and TMA. This test has not been FDAcleared or approved. This test has been authorized by FDA under anEmergency Use Authorization (EUA). This test is only authorized forthe duration of time the declaration that circumstances existjustifying the authorization of the emergency use of in vitrodiagnostic tests for detection of SARS-CoV-2 virus and/or diagnosisof COVID-19 infection under section 564(b)(1) of the Act, 21 U.S.C.360bbb-3(b) (1), unless the authorization is terminated or revokedsooner.When diagnostic testing is negative, the possibility of a falsenegative result should be considered in the context of a patient'srecent exposures and the presence of clinical signs and symptomsconsistent with COVID- 19. An individual without symptoms of COVID-19and who is not shedding SARS-CoV-2 virus would expect to have anegative (not detected) result in this assay. ID Date Data Source [id number] 03/13/2020 08:00:00 AM EDT [facility] Name Value Range Interpretation Code Description Data Alia rce(s) Supporting Document(s) SARS coronavirus 2 RNA [facility] This lab was ordered by [facility] a nd reported by [facility]. ID Date Data Source [id number] 03/14/2020 02:05:00 PM EDT [facility] Name Value Range Interpretation Code Description Data Alia rce(s) Supporting Document(s) Inpatient [facility] Received ID Date Data Source [id number] 03/14/2020 02:06:00 PM [facility]T [facility] Name Value Range Interpretation Code Description Data Alia rce(s) Supporting Document(s) SARS COV2 Not Detected Not Detected [facility] This nucleic acid amplification test was developed and itsperformance characteristics determined by [facility]. Nucleic acid amplification tests include PCRand TMA. This test has not been FDA cleared or approved.This test has been authorized by FDA under an Emergency UseAuthorization (EUA). This test is only authorized forthe duration of time the declaration that circumstancesexist justifying the authorization of the emergency use ofin vitro diagnostic tests for detection of SARS-CoV-2 virusand/or diagnosis of COVID-19 infection under zuxcnbt305(b)(1) of the Act, 21 U.S.C. 360bbb-3(b) (1), unless theauthorization is terminated or revoked sooner.When diagnostic testing is negative, the possibility of afalse negative result should be considered in the contextof a patient's recent exposures and the presence ofclinical signs and symptoms consistent with COVID-19. Anindividual without symptoms of COVID-19 and who is notshedding SARS-CoV-2 virus would expect to have a negative(not detected) result in this assay. ID Date Data Source [id number] 02/15/2020 07:19:00 AM EDT [facility] Preoperative Diagnosis:1. Anisometropi a, right eye2. Presence of intraocular lens s/p cataract extraction, right eye Postoperative Diagnosis:1. Same. Procedure:1. Intraocular lens exchange, and placement of intraocular lens, AU00T0 21.5 D,right eye. Anesthesia: Local with MAC. Complications: None. Postoperative Condition: Stable. Indications for surgery: 1. Blurred vision affecting patient s activities of daily living. Description of procedure: The patient was seen in the preoperative area and properly identified. The correct operative eye was identified and marked. The patient received topical anesthetic, antibiotics, and topical dilating drops. The patient was then transferred to the operating room. The correct side was re-identified and a timeout was performed. The eye was prepped and draped in a sterile fashion. The eyelids were isolated with Tegaderm tape and the lids were held open with an adjustable speculum. A 1.0mm paracentesis incision was made superior and inferior. Intraocular preservative free Shugarcaine was then injected into the anterior chamber. Viscoelastic was then injected into the anterior chamber through the paracentesis. Using a 2.4mm sharp-tipped keratome, the anterior chamber was entered via a temporal clear cornea incision. Viscoelastic on a 30g needle was used to elevate the anterior capsulorhexis 360 degrees. Viscoelastic on a cannula was used to inflate the capsular bag and separate the anterior and posterior capsule from each other. Provisc was placedto deepen the capsular bag. A blunt spatula was used to rotate the lens showing mobility. The intraocular lens was elevated into the anterior chamber. The new AU00T0 21.5D was injected and unfolded into the capsular bag.Placement was confirmed by visualizing the anterior capsulorhexis. Microforceps and microscissors were used to bisect the old intraocular lens. Thelens pieces were removed with microforceps from the anterior chamber. Irrigation/aspiration was used to remove the viscoelastic. The clear corneal incision was hydrated with BSS on a blunt cannula. The lens was well positioned. The incisions were then tested for leaks and found to be negative. The eye was then palpated for appropriate pressure and adjusted accordingly with BSS. Resure sealant was placed over the incision. The eyelid speculum was then carefully removed. A shield was placed over the eye. The patient tolerated the procedure well and was discharge to the recovery unit in a stable condition. Name Value Range Interpretation Code Description Data Alia rce(s) Supporting Document(s) ID Date Data Source [id number] 02/08/2020 02:05:00 PM EDT [facility] Name Value Range Interpretation Code Description Data Alia rce(s) Supporting Document(s) SARS-CoV-2, TAPAN Not Detected Not Detected [facility] Testing was performed using the magno(R) SARS-CoV-2 test.This test was developed and its performance characteristics determinedby [facility]. This test has not been FDA cleared orapproved. This test has been authorized by FDA under an Emergency UseAuthorization (EUA). This test is only authorized for the duration oftime the declaration that circumstances exist justifying theauthorization of the emergency use of in vitro diagnostic tests fordetection of SARS-CoV-2 virus and/or diagnosis of COVID-19 infectionunder section 564(b)(1) of the Act, 21 U.S.C. 360bbb-3(b)(1), unlessthe authorization is terminated or revoked sooner.When diagnostic testing is negative, the possibility of a falsenegative result should be considered in the context of a patient'srecent exposures and the presence of clinical signs and symptomsconsistent with COVID-19. An individual without symptoms of COVID-19and who is not shedding SARS-CoV-2 virus would expect to have anegative (not detected) result in this assay. ID Date Data Source [id number] 02/07/2020 08:00:00 AM EDT [facility] Name Value Range Interpretation Code Description Data Alia rce(s) Supporting Document(s) SARS coronavirus 2 RNA [facility] This lab was ordered by [facility] a nd reported by [facility]. ID Date Data Source [id number] 02/08/2020 02:06:00 PM EDT [facility] Name Value Range Interpretation Code Description Data Alia rce(s) Supporting Document(s) SARS COV2 Not Detected Not Detected [facility] Testing was performed using the mango(R) SARS-CoV-2 test.This test was developed and its performance characteristicsdetermined by [employer]. This test has not beenFDA cleared or approved. This test has been authorized byFDA under an Emergency Use Authorization (EUA). This testis only authorized for the duration of time the declarationthat circumstances exist justifying the authorization ofthe emergency use of in vitro diagnostic tests fordetection of SARS-CoV-2 virus and/or diagnosis of COVID-19infection under section 564(b)(1) of the Act, 21 U.S.C.360bbb-3(b)(1), unless the authorization is terminated orrevoked sooner. When diagnostic testing is negative, thepossibility of a false negative result should be consideredin the context of a patient's recent exposures and thepresence of clinical signs and symptoms consistent withCOVID- 19. An individual without symptoms of COVID-19 andwho is not shedding SARS-CoV-2 virus would expect to have anegative (not detected) result in this assay.Per formed at: RN - [facility] [address] [id number] Director: Gracia Jaramillo MD, Phone: [phone] ID Date Data Source [id number] 01/20/2020 12:00:00 AM EDT [facility] Name Value Range Interpretation Code Description Data Alia rce(s) Supporting Document(s) SARS coronavirus 2 RNA [facility] This lab was ordered by [facility] and reported by [facility]. ID Date Data Source [id number] 09/21/2019 02:21:00 PM EDT [facility] Name Value Range Interpretation Code Description Data Alia rce(s) Supporting Document(s) White Blood Count 5.3 5.0-10.0 [facility] ([facility]) Red Blood Count 3.10 4.70-6.10 [facility] ([facility]) Platelets 247 172-450 [facility] ([facility]) Hemoglobin 10.4 14.0-18.0 [facility] ([facility][1]) Hematocrit 31.8 42.0-52.0 [facility] ([facility]) ID Date Data Source [id number] 09/21/2019 02:21:00 PM EDT [facility] ([facility][1]) Name Value Range Interpretation Code Description Data Alia rce(s) Supporting Document(s) Glucose 113 70-100 [facility] Creatinine 1.02 0.6-1.4 [facility] ([facility]) Glomerular filtration rate/1.73 sq M.pre dicted [Volume Rate/Area] in Serum or Plasma by Creatinine-based formula (MDRD) 72 [facility] ([facility]) Blood Urea Nitrogen 47.8 7-25 [facility] ([facility]) Carbon Dioxide 29.6 22-33 [facility] ([facility]) Sodium 138.1 135-145 [facility] ([facility]) Potassium 4.69 3.5-5.3 [facility] ([facility]) Chloride 102.8 94-110 [facility] ([facility]) Albumin 4.3 3.5-4.7 [facility] ([facility]) Calcium 9.46 8.7-10.4 [facility] ([facility]) Phosphorus 3.75 [facility] ([facility]) Procedure Social History Code Duration Value Status Description Data Source(s ) Smoking 04/02/2020 12:00:00 AM EDT Patient is a former smoker completed Patient is a former smoker [facility] ([facility]) Vital Signs ID Date Data Source [id number] Name Value Range Interpretation Code Description Data Source(s) Respiratory rate 20 /min 20 /min [facility] ( [facility], ) Heart rate 72 /min 72 /min [facility] ([facility], ) Diastolic blood pressure 80 mm[Hg] 80 mm[Hg] [facility] ([facility], ) Systolic blood pressure 140 mm[Hg] 140 mm[Hg] [facility] ([facility], ) Diastolic blood pressure--standing 72 mm[Hg] 7 2 mm[Hg] [facility] ([facility]) Systolic blood pressure--standing 136 mm[Hg] 13 6 mm[Hg] [facility] ([facility]) Diastolic blood pressure 76 mm[Hg] 76 mm[Hg] [facility] ([facility]) sitting Systolic blood pressure 134 mm[Hg] 134 mm[Hg] [facility] ([facility]) sitting Diastolic blood pressure 76 mm[Hg] 76 mm[Hg] [facility] ([facility]) sitting, large cuff Systolic blood pressure 136 mm[Hg] 136 mm[Hg] M EDENT ([facility]) sitting, large cuff Respiratory rate 16 /min 16 /min [facility] ( [facility]) Heart rate 76 /min 76 /min [facility] ([facility]) Regular Body mass index (BMI) [Ratio] 37.1 kg/m2 37.1 k g/m2 [facility] ([facility]) Body height 68 [in_i] 68 [in_i] [facility] 5'8" Body weight 244.00 [lb_av] 244.00 [lb_av] MEDEN T ([facility]) Diastolic blood pressure--standing 70 mm[Hg] 7 0 mm[Hg] [facility] ([facility]) Ra Systolic blood pressure--standing 126 mm[Hg] 12 6 mm[Hg] [facility] ([facility]) Ra Diastolic blood pressure 70 mm[Hg] 70 mm[Hg] [facility] ([facility]) sitting Systolic blood pressure 124 mm[Hg] 124 mm[Hg] M EDENT ([facility]) sitting Diastolic blood pressure 76 mm[Hg] 76 mm[Hg] [facility] ([facility]) sitting, large cuff Systolic blood pressure 126 mm[Hg] 126 mm[Hg] M EDENT ([facility]) sitting, large cuff Respiratory rate 16 /min 16 /min [facility] ( [facility]) Heart rate 84 /min 84 /min [facility] ([facility]) Regular Body mass index (BMI) [Ratio] 36.5 kg/m2 36.5 k g/m2 [facility] ([facility]) Body height 68 [in_i] 68 [in_i] [facility] ([facility]) 5'8" Body weight 240.00 [lb_av] 240.00 [lb_av] MEDEN T ([facility])
[2020-07-16 14:44] LABS: BASO % 0.5 % (0.0-1.0); EOS # 0.1 10^3/uL (0.0-0.5); EOS % 1.6 % (0.0-3.0); HEMATOCRIT 27.8 % (42.0-52.0); HEMOGLOBIN 8.9 g/dl (13.5-17.5); LYMPH # 1.3 10^3/uL (1.5-5.0); LYMPH % 20.6 % (24.0-44.0); MEAN CORPUSCULAR HEMOGLOBIN 30.6 pg (27.0-33.0); MEAN CORPUSCULAR VOLUME 95.5 fl (80.0-96.0); MONO # 0.8 10^3/uL (0.0-0.8); MONO % 11.9 % (0.0-5.0); NEUTROPHILS # 4.2 10^3/uL (1.5-8.5); NEUTROPHILS % 65.2 % (36.0-66.0); PLATELET COUNT, AUTOMATED 274 10^3/uL (150-450); RED BLOOD COUNT 2.91 10^6/uL (4.30-6.10); WHITE BLOOD COUNT 6.5 10^3/uL (4.0-10.0)
--- NOTE | 2020-07-16 14:53 | REP ---
INDICATION: Syncope/near-syncope. COMPARISON: 01/04/2020 a PA and lateral exam TECHNIQUE: The technique utilized in obtaining the radiograph has magnified the cardiac silhouette and attenuated the interstitial markings. FINDINGS: . The superior mediastinal structures are midline. The cardiac silhouette is unchanged in size, shape, and position. The diaphragmatic surfaces of the lungs are regular, and the costophrenic angles are clear. The pulmonary glover are clear. The imaged osseous structures are intact. IMPRESSION: There is no acute cardiopulmonary disease. <Electronically signed by Jose Schilling > 07/16/20 [id number]
--- NOTE | 2020-07-16 15:12 | REPVR ---
PROCEDURE INFORMATION: Exam: CT Head Without Contrast Exam date and time: 07/16/2020 2:39 PM Age: 70 years old Clinical indication: Pain; Headache; Additional info: Fall, hit head TECHNIQUE: Imaging protocol: Computed tomography of the head without contrast. Radiation optimization: All CT scans at this facility use at least one of these dose optimization techniques: automated exposure control; mA and/or kV adjustment per patient size (includes targeted exams where dose is matched to clinical indication); or iterative reconstruction. COMPARISON: CT Head without contrast 06/05/2020 3:16 PM FINDINGS: Brain: There is no acute intracranial hemorrhage, cerebral edema, or midline shift. Minimal chronic microvascular ischemic changes are seen in the periventricular white matter. Age-related cerebral and cerebellar volume loss is present. Cerebral ventricles: Mild ex vacuo dilation of the lateral ventricles is noted. Bones/joints: No acute fracture. Paranasal sinuses: There is no acute sinusitis. Mastoid air cells: The mastoid air cells are clear. Orbital cavity: The included orbital structures are unremarkable. Vasculature: Atherosclerotic calcifications are seen involving the cavernous carotid arteries. Soft tissues: Unremarkable. IMPRESSION: 1. No acute intracranial abnormality. 2. Chronic findings as discussed above. Electronically signed by: Gavino Puckett On 07/16/2020 15:13:22 PM
[2020-07-16 15:14] LABS: BLOOD UREA NITROGEN 47 MG/DL (7-18); CALCIUM LEVEL 9.3 MG/DL (8.8-10.2); CARBON DIOXIDE LEVEL 32 MEQ/L (21-32); CHLORIDE LEVEL 99 MEQ/L (98-107); CK-MB VALUE MASS 18.7 NG/ML (<3.6); CPK CREATINE PHOSPHOKINASE 733 U/L (39-308); CREATININE FOR GFR 1.61 MG/DL (0.70-1.30); GLOMERULAR FILTRATION RATE 45.4 (>42); GLUCOSE, FASTING 123 MG/DL (70-100); MB/CK RELATIVE INDEX 2.55 (< OR =4); POTASSIUM SERUM 4.3 MEQ/L (3.5-5.1); SODIUM LEVEL 134 MEQ/L (136-145); TROPONIN I < 0.02 NG/ML (< 0.10)
--- OUTSIDE RECORDS SUMMARY | 2020-07-16 15:56 | CCD ---
Author Author [facility] Organization [facility] Address Unknown Phone Unavailable Care Team Providers Care Digital Director Name Role Phone LacywRaquel PA Unavailable Unavailable [...] PA Unavailable Unavailable Madeline, Rachel W Elsy OPERATING ROOM AIDE-C Unavailable Unavailabl e Madeline, Reginabetina W Elsy OPERATING ROOM AIDE-C Unavailable Unavailabl e Madeline, Regina W Elsy OPERATING ROOM AIDE-C Unavailable Unavailabl e Madeline, Regina W Elsy OPERATING ROOM AIDE-C Unavailable Unavailabl e Madeline, Regina W Elsy OPERATING ROOM AIDE-C Unavailable Unavailabl e Madeline, Regina W Elsy OPERATING ROOM AIDE-C Unavailable Unavailabl e Madeline, Regina W Elsy OPERATING ROOM AIDE-C Unavailable Unavailabl e Madeline, Regina W Elsy OPERATING ROOM AIDE-C Unavailable Unavailabl e Madeline, Regina W Elsy OPERATING ROOM AIDE-C Unavailable Unavailabl e Madeline, Regina W Elsy OPERATING ROOM AIDE-C Unavailable Unavailabl e Madeline, Regina W Elsy OPERATING ROOM AIDE-C Unavailable Unavailabl e Madeline, Regina W Elsy OPERATING ROOM AIDE-C Unavailable Unavailabl e Madeline, Regina W Elsy OPERATING ROOM AIDE-C Unavailable Unavailabl e Madeline, Regina W Elsy OPERATING ROOM AIDE-C Unavailable Unavailabl e Madeline, Regina W Elsy OPERATING ROOM AIDE-C Unavailable Unavailabl e Madeline, Regina W Elsy OPERATING ROOM AIDE-C Unavailable Unavailabl e Madeline, Regina W Elsy OPERATING ROOM AIDE-C Unavailable Unavailabl e Madeline, Regina W Elsy OPERATING ROOM AIDE-C Unavailable Unavailabl e Madeline, Regina W Elsy OPERATING ROOM AIDE-C Unavailable Unavailabl e Madeline, Regina W Elsy OPERATING ROOM AIDE-C Unavailable Unavailabl e Madeline, Regina W Elsy OPERATING ROOM AIDE-C Unavailable Unavailabl e Madeline, Reginabetina W Elsy OPERATING ROOM AIDE-C Unavailable Unavailabl e Madeline, Reginabetina W Elsy OPERATING ROOM AIDE-C Unavailable Unavailabl e Madeline, Reginabetina W Elsy OPERATING ROOM AIDE-C Unavailable Unavailabl e Madeilne, Reginah W Elsy OPERATING ROOM AIDE-C Unavailable Unavailabl e Madeline, Reginabetina W Elsy OPERATING ROOM AIDE-C Unavailable Unavailabl e Madeline, Reginah W Elsy OPERATING ROOM AIDE-C Unavailable Unavailabl e Madeline, Reginah W Elsy OPERATING ROOM AIDE-C Unavailable Unavailabl e Madeline, Reginabetina W Elsy OPERATING ROOM AIDE-C Unavailable Unavailabl e Madeline, Miguelinabetina W Elsy OPERATING ROOM AIDE-C Unavailable Unavailabl e Madeline, Rachel Chin OPERATING ROOM AIDE-C Unavailable Unavailabl e Madeline, Rachel Chin OPERATING ROOM AIDE-C Unavailable Unavailabl e Mayuri MCDONALDEW DO Unavailable [...] Unavailable [phone] Mayuri MCDONALD DO Unavailable [phone] Mayuri MCDONALD DO Unavailable [phone] Mayuri MCDONALD DO Unavailable [phone] Mayuri MCDONALD DO Unavailable [phone] Mayuri MCDONALD DO Unavailable [phone] Mayuri MCDONALD DO Unavailable [phone] Re-disclosure Warning The records that you [...] is protected by Article 27-F of the [facility] Public Health law. If you continue you may have access to information: Regarding HIV / AIDS; Provided by facilities licensed or operated by the [facility] Office of Mental Health; or Provided by the [facility] Office for People With Developmental Disabilities. If such information is present, then the following [facility] mandated warning applies: This information has been [...] law may result in a fine or fpc sentence or both. A general authorization for [...] Unknown Problem [facility] ([facility]) Unknown Male Problem [facility] ([facility]) Encounters Encounter Providers Location Date Indications Data Source(s ) Office Visit Attender: TATIANA FIORE MD Main Office 04/29/2020 10: 13:00 AM EDT [facility] ([facility]) Outpatient Attender: Italia BRENNER Main office - [facility] 04/08/2020 10:00:00 AM EDT [facility] ([facility]) Outpatient Attender: Sarah BRENNER Main Office 04/02/2020 10:45:00 AM EDT [facility] ([facility]) Office Visit Attender: TATIANA FIORE MD Main Office 03/26/2020 01: 39:00 PM EDT [facility] ([facility]) Outpatient Attender: EL MCDONALD DO 0 03/18/2020 06:54:00 AM EDT - 03/18/2020 09:25:00 AM EDT [facility] Patient discharged. Outpatient Attender: Elsy RITTER-Minoo EMERGENCY ROOM-LAB REF 03/13/2020 08:20:00 AM EDT - 03/13/2020 08:20:00 AM EDT [facility] 03/10/2020 12:00:00 AM EDT eCW1 ([facility]) Office Visit Attender: TATIANA FIORE MD Main Office 02/28/2020 03: 47:00 PM EDT MED[facility] ([facility]) Outpatient Attender: EL MCDONALD DO 0 02/12/2020 10:10:00 AM EDT - 02/12/2020 12:15:00 PM EDT [facility] Patient discharged. Outpatient Attender: Elsy RITTER-Minoo EMERGENCY ROOM-LAB REF 02/07/2020 11:13:00 AM EDT - 02/07/2020 11:13:00 AM EDT [facility] 02/06/2020 12:00:00 AM EDT eCW1 ([facility]) Office Visit Attender: TTAIANA FIORE MD Main Office 01/26/2020 01: 23:00 PM EDT MED[facility] ([facility]) Office Visit Attender: TATIANA FIORE MD Main Office 12/27/2019 12: 56:00 PM EDT MED[facility] ([facility]) Office Visit Attender: TATIANA FIORE MD Main Office 11/23/2019 10: 47:00 AM EDT [facility] ([facility]) Outpatient Attender: EL MCDONALD DO 11/13/2019 07:30 :00 AM [facility] Office Visit Attender: TATIANA FIORE MD Main Office 10/24/2019 12: 54:00 PM EDT MED[facility] ([facility]) Outpatient Attender: EL MCDONALD DO 10/16/2019 07:30 :00 AM [facility] Outpatient Attender: Sarah BRENNER Main Office 10/06/2019 10:15:00 AM EDT [facility] ([facility]) Insurance Providers Payer name Policy type / Coverage type Policy ID Covered republican ID Covered republican's relationship to cardenas Policy Cardenas Plan Information MEDICARE [id number] SP [id number] BCBS FEDERAL EMPLOYEE PROGRAM [id number] SP [id number] FOR LIFE [id number] SP [id number] [facility] FEDERAL SERVICES [id number] S [id number] BC[place] OF [place] [id number] S [id number] [place] MEDICARE DIVISION [id number] S [id number] MEDICARE - [place] [id number] S [id number] [facility] FEDERAL SERVICES [id number] S [id number] MEDICARE C [id number] S [id number] FOR LIFE O [id number] S [id number] [place] FED[place]AL S [id number] S [id number] [place] [id number] S [id number] [facility] FEDERAL SERVICES [id number] S [id number] For Life Secondary ONLY [id number] 0 [id number] [facility] [id number] [address] [id number] Medicare Part B [facility] Division [id number] 0 [id number] For Life Medigap Part B [id number] Self [id number] Federal BC/BS Commercial [id number] Self [id number] Medicare Part B Medicare Primary [id number] Self [id number] For Life Secondary ONLY [id number] 0 [id number] For Life - [place] Medigap Part B [id number] Self [id number] Medicare (Part B) Medicare Primary [id number] Self [id number] BCBS Federal Medigap Part B [id number] Self [id number] For Life - [place] Medigap Part B [id number] Self [id number] Medicare (Part B) Medicare Primary [id number] Self [id number] FOR LIFE U [id number] Self [id number] MEDICARE A [id number] Self [id number] BLUE CARD C [id number] Self [id number] MEDICARE PI PI PI YASH BARRY BCBS PI PI MEDICARE [id number] Mulu [id number] A BS Federal Medigap Part B [id number] Self [id number] [place] Primary [id number] Self [id number] MEDICARE [id number] SP [id number] MEDICARE [id number] SP [id number] For Life Medigap Part B [id number] Self [id number] Federal BC/BS Commercial [id number] Self [id number] Medicare Part B Medicare Primary [id number] Self [id number] For Life Reg 1 Medigap Part B [id number] Self [id number] BCBS Federal Medigap Part B [id number] Self [id number] Medicare - [facility] Medicare Primary [id number] Self [id number] For Life - [place] Medigap Part B [id number] Self [id number] Medicare (Part B) Medicare Primary [id number] Self [id number] For Life Medigap Part B [id number] Self [id number] Federal BC/BS Commercial [id number] Self [id number] Medicare Part B Medicare Primary [id number] Self [id number] FOR LIFE [id number] SP [id number] BCBS FEDERAL EMPLOYEE PROGRAM [id number] SP [id number] For Life Medigap Part B [id number] Self [id number] Federal BC/BS Commercial [id number] Self [id number] Medicare Part B Medicare Primary [id number] Self [id number] For Life - [place] Medigap Part B [id number] Self [id number] Medicare (Part B) Medicare Primary [id number] Self [id number] For Life Reg 1 Medigap Part B [id number] Self [id number] BCBS Federal Medigap Part B [id number] Self [id number] Medicare - [facility] Medicare Primary [id number] Self [id number] Healthnet Federal Service Medigap Part B [id number] Self [id number] BS Fed Plan Medigap Part B [id number] Self [id number] Bshmo ZFC,Yot,ZFH,Ymb,ZFP Health Maintenance Organization (HMO) YOP [id number] Self [id number] Medicare Dme Supplies Medigap Part B [id number] Self [id number] [place] Medicare Primary [id number] Self [id number] [facility] Federal Service Medigap Part B [id number] Self [id number] BS Fed Plan Medigap Part B [id number] Self [id number] Bshmo ZFC,Yot,ZFH,Ymb,ZFP Health Maintenance Organization (HMO) YOP [id number] Self [id number] Medicare Dme Supplies Medigap Part B [id number] Self [id number] [place] Medicare Primary [id number] Self [id number] EXCELLUS BCBS FEDERAL [id number] SP [id number] FOR LIFE -O/P [id number] 18 [id number] [facility] FEDERAL -O/P [id number] 18 [id number] MEDICARE PART A -O/P [id number] 18 [id number] For Life Medigap Part B [id number] Self [id number] Federal BC/BS Commercial [id number] Self [id number] Medicare Part B Medicare Primary [id number] Self [id number] For Life - [place] Medigap Part B [id number] Self [id number] Medicare (Part B) Medicare Primary [id number] Self [id number] Healthnet Federal Service Medigap Part B [id number] Self [id number] BS Fed Plan Medigap Part B [id number] Self [id number] Bshmo ZFC,Yot,ZFH,Ymb,ZFP Health Maintenance Organization (HMO) YOP [id number] Self [id number] Medicare [facility] Medicare Primary [id number] Self [id number] Healthnet Federal Service Medigap Part B [id number] Self [id number] BS Fed Plan Medigap Part B [id number] Self [id number] Bshmo ZFC,Yot,ZFH,Ymb,ZFP Health Maintenance Organization (HMO) YOP [id number] Self [id number] [place] Primary [id number] Self [id number] For Life - [place] Medigap Part B [id number] Self [id number] Medicare (Part B) Medicare Primary [id number] Self [id number] MEDICARE [id number] SP [id number] A Medicare (Part B) Medicare Primary Self For Life - [place] Medigap Part B Self BC/BS Federal Medigap Part B Self MEDICARE [id number] SP [id number] A Medicare Medicare Primary Self BC BS [place] FEDERAL [id number] SP [id number] MEDICARE P [id number] S [id number] A [id number] Mulu [id number] MEDICARE [id number] Mulu [id number] A86 EXCELLUS BCBS [id number] Mulu [id number] Mulu [id number] EXCELLUS BCBS [id number] Mulu [id number] Problems, Conditions, and Diagnoses Code Display Name Description Problem Type Effective Dates Data Source(s) H52.202 Unspecified astigmatism, left eye UNSPECIFIED TIGMATISM, LEFT EYE Diagnosis 03/18/2020 06:54:00 AM [facility] H25.12 Age-related nuclear cataract, left eye A GE-RELATED NUCLEAR CATARACT, LEFT EYE Diagnosis [facility] Encounter for other preprocedural examin ation ENCOUNTER FOR OTHER PREPROCEDURAL EXAMIN Diagnosis 03/13/2020 08:20:00 AM EDT [facility] Z98.41 Cataract extraction status, right eye CA TARACT EXTRACTION STATUS, RIGHT EYE Diagnosis 02/12/2020 10:10:00 AM [facility] l H52.31 Anisometropia ANISOMETROPIA Diagnosis 02/12/2020 10:10:00 AM [facility] Surgeries/Procedures Procedure Description Date Indications Data Source(s) MYOCARDIAL SPECT MULTIPLE STUDIES 04/16/2020 12:00:00 AM EDT MED[facility] ([facility]) CV STRS TST XERS&/OR RX CONT ECG PHYS SI&R 04/16/2020 12:00:00 AM EDT [facility] ([facility]) ECG ROUTINE ECG W/LEAST 12 LDS W/I&R 04/02/2020 12:00: 00 AM EDT [facility] ([facility]) ECG ROUTINE ECG W/LEAST 12 LDS W/I&R 10/06/2019 12:00: 00 AM EDT [facility] ([facility]) Results ID Date Data Source [id number] 05/28/2020 12:36:00 PM EST [facility] ([facility]) Name Value Range Interpretation Code Description Data Alia rce(s) Supporting Document(s) Magnesium Level 2.14 [facility] ([facility]) ID Date Data Source [id number] 05/28/2020 12:36:00 PM EST [facility] ([facility]) Name Value Range Interpretation Code Description Data Alia rce(s) Supporting Document(s) White Blood Count 5.2 4.3-10.9 [facility] ([facility]) Red Blood Count 3.32 4.70-6.20 [facility] ([facility]) Platelets 195 130-400 [facility] Hemoglobin 10.6 13.0-17.0 [facility] ([facility]) Hematocrit 32.6 39.0-50.0 [facility] ([facility]) ID Date Data Source [id number] 05/28/2020 12:36:00 PM EST [facility] ([facility]) Name Value Range Interpretation Code Description Data Alia rce(s) Supporting Document(s) Glucose 105 70-100 [facility] ([facility]) Creatinine 1.2 0.6-1.5 [facility] ([facility]) Blood Urea Nitrogen 48.1 5-21 [facility] ([facility]) Glomerular filtration rate/1.73 sq M.pre dicted [Volume Rate/Area] in Serum or Plasma by Creatinine-based formula (MDRD) 60 [facility] ([facility]) Sodium 137.6 136-146 [facility] ([facility]) Potassium 4.89 3.5-5.3 [facility] Chloride 97.6 98-110 [facility] ([facility]) Carbon Dioxide 31.3 20-32 [facility] ([facility]) Calcium 8.9 8.4-10.4 MED[facility] ([facility]) Phosphorus 3.6 [facility] ([facility]) Albumin 4.0 3.5-4.7 [facility] ([facility]) ID Date Data Source [id number] 04/18/2020 12:00:00 AM EDT [facility] Gurjit Lopez Race Steward Patient Name: ELLY [id number] Date of : 1950[place] [address] Date of Exam: 04/18/2020#: Fax: [phone] EXAM: [...] rce(s) Supporting Document(s) ID Date Data Source [id number] 04/15/2020 12:00:00 AM EDT [facility] Gurjit Borregojorge Race Steward Patient Name: ELLY [id number] Date of : 1950[place] [address] Date of Exam: 04/15/2020#: Fax: [phone] EXAM: [...] ordered or performed.IMPRESSION:Unremarkable renal ultrasonography.Accredited by the [employer] in General Ultrasound.LEN Jeffery/Mykel you for referring ELLY VILCHIS to our office. Electronically Signed - JOHANNA MARTINEZ DO 04/15/20 10:24 Name Value Range Interpretation Code Description Data Alia rce(s) Supporting Document(s) ID Date Data Source [id number] 04/02/2020 07:17:00 AM EDT [facility] Preoperative Diagnosis: 1. Visually sig nificant [...] rce(s) Supporting Document(s) ID Date Data Source [id number] 03/26/2020 03:46:00 PM EDT [facility] Name Value Range Interpretation Code Description Data Alia rce(s) Supporting Document(s) White Blood Count 5.8 4.3-10.9 [facility] ([facility]) Red Blood Count 3.48 4.70-6.20 [facility] ([facility]) Platelets 240 130-400 [facility] ([facility]) Hematocrit 34.9 39.0-50.0 [facility] ([facility]) Hemoglobin 10.9 13.0-17.0 MED[facility] (Cardiology [facility]) ID Date Data Source [id number] 03/26/2020 03:46:00 PM EDT [facility] ([facility]) Name Value Range Interpretation Code Description Data Alia rce(s) Supporting Document(s) Glucose 146 70-100 [facility] Blood Urea Nitrogen 55.9 5-21 [facility] ([facility]) Glomerular filtration rate/1.73 sq M.pre dicted [Volume Rate/Area] in Serum or Plasma by Creatinine-based formula (MDRD) 43 [facility] ([facility]) Creatinine 1.6 0.6-1.5 [facility] ([facility] [...] ssociates of [place]) ID Date Data Source [id number] 03/14/2020 02:05:00 PM EDT [facility] Name Value Range Interpretation Code Description Data Alia rce(s) Supporting Document(s) SARS-CoV-2, TAPAN Not Detected Not Detected [facility] This nucleic acid amplification test was developed and its performancecharacteristics determined by [facility]. Nucleic acidamplification tests include PCR and TMA. [...] in this assay. ID Date Data Source [id number] 03/13/2020 08:00:00 AM EDT [facility] Name Value Range Interpretation Code Description Data Alia rce(s) Supporting Document(s) SARS coronavirus 2 RNA [facility] This lab was ordered by [facility] a nd reported by [facility]. ID Date Data Source [id number] 03/14/2020 02:05:00 PM EDT [facility] Name Value Range Interpretation Code Description Data Alia rce(s) Supporting Document(s) Inpatient [facility] Received ID Date Data Source [id number] 03/14/2020 02:06[facility] Name Value Range Interpretation Code Description Data Alia rce(s) Supporting Document(s) SARS COV2 Not Detected Not Detected [facility] This nucleic acid amplification test was developed [...] SARS-CoV-2 virusand/or diagnosis of COVID-19 infection under [id number](b)(1) of the Act, 21 U.S.C. 360bbb-3(b) (1), [...] in this assay. ID Date Data Source [id number] 02/15/2020 07:19:00 AM EDT [facility] Preoperative Diagnosis:1. Anisometropi a, right [...] rce(s) Supporting Document(s) ID Date Data Source [id number] 02/08/2020 02:05:00 PM EDT [facility] Name Value [...] in this assay. ID Date Data Source [id number] 02/07/2020 08:00:00 AM EDT [facility] Name Value Range Interpretation Code Description Data Alia rce(s) Supporting Document(s) SARS coronavirus 2 RNA [facility] This lab was ordered by [facility] a nd reported by [facility]. ID Date Data Source [id number] 02/08/2020 02:06:00 PM EDT [facility] Name Value Range Interpretation Code Description Data Alia rce(s) Supporting Document(s) SARS COV2 Not Detected Not Detected [facility] Testing was performed using the magno(R) SARS-CoV-2 test.This test was developed and its performance characteristicsdetermined by [facility]. This test has not beenFDA cleared or [...] this assay.Per formed at: RN - [facility] [address] [id number] Director: Gracia Jaramillo MD, Phone: [phone] ID Date Data Source [id number] 01/20/2020 12:00:00 AM EDT [facility] Name Value Range Interpretation Code Description Data Alia rce(s) Supporting Document(s) SARS coronavirus 2 RNA [facility] This lab was ordered by [facility] and reported by [facility]. ID Date Data Source [id number] 09/21/2019 02:21:00 PM EDT [facility] Name Value Range Interpretation Code Description Data Alia rce(s) Supporting Document(s) White Blood Count 5.3 5.0-10.0 [facility] ([facility]) Red Blood Count 3.10 4.70-6.10 [facility] ([facility]) Platelets 247 172-450 [facility] ([facility]) Hemoglobin 10.4 14.0-18.0 [facility] (Cardiology [facility]) Hematocrit 31.8 42.0-52.0 [facility] ([facility]) ID Date Data Source [id number] 09/21/2019 02:21:00 PM EDT [facility] (Cardi ology [facility]) Name Value Range Interpretation Code Description Data Alia rce(s) Supporting Document(s) Glucose 113 70-100 [facility] Creatinine 1.02 0.6-1.4 [facility] ([facility]) Glomerular filtration rate/1.73 sq M.pre dicted [Volume Rate/Area] in Serum or Plasma by Creatinine-based formula (MDRD) 72 [facility] ([facility]) Blood Urea Nitrogen 47.8 7-25 [facility] ([facility]) Carbon Dioxide 29.6 22-33 [facility] ([facility]) Sodium 138.1 135-145 [facility] ([facility]) Potassium 4.69 3.5-5.3 [facility] ([facility]) Chloride 102.8 94-110 [facility] ([facility]) Albumin 4.3 3.5-4.7 [facility] ([facility]) Calcium 9.46 8.7-10.4 [facility] ([facility]) Phosphorus 3.75 [facility] ([facility]) Procedure Social History Code Duration Value Status Description Data Source(s ) Smoking 04/02/2020 12:00:00 AM EDT Patient is a former smoker completed Patient is a former smoker [facility] ([facility]) Vital Signs ID Date Data Source [id number] Name Value Range Interpretation Code Description Data Source(s) Respiratory rate 20 /min 20 /min [facility] ( [facility] ) Heart rate 72 /min 72 /min [facility] ([facility] ) Diastolic blood pressure 80 mm[Hg] 80 mm[Hg] [facility] ([facility] ) Systolic blood pressure 140 mm[Hg] 140 mm[Hg] EDENT ([facility] ) Diastolic blood pressure--standing 72 mm[Hg] 7 2 mm[Hg] [facility] ([facility]) Systolic blood pressure--standing 136 mm[Hg] 13 6 mm[Hg] [facility] ([facility]) Diastolic blood pressure 76 mm[Hg] 76 mm[Hg] [facility] ([facility]) sitting Systolic blood pressure 134 mm[Hg] 134 mm[Hg] EDENT ([facility]) sitting Diastolic blood pressure 76 mm[Hg] 76 mm[Hg] [facility] ([facility]) sitting, large cuff Systolic blood pressure 136 mm[Hg] 136 mm[Hg] M EDENT ([facility]) sitting, large cuff Respiratory rate 16 /min 16 /min [facility] ( [facility]) Heart rate 76 /min 76 /min [facility] ([facility]) Regular Body mass index (BMI) [Ratio] 37.1 kg/m2 37.1 k g/m2 [facility] ([facility]) Body height 68 [in_i] 68 [in_i] [facility] 5'8" Body weight 244.00 [lb_av] 244.00 [lb_av] MEDEN T ([facility]) Diastolic blood pressure--standing 70 mm[Hg] 7 0 mm[Hg] MEDENT (Cardiology [facility]) Ra Systolic blood pressure--standing 126 mm[Hg] 12 6 mm[Hg] MEDENT ([facility]) Ra Diastolic blood pressure 70 mm[Hg] 70 mm[Hg] MEDENT ([facility]) sitting Systolic blood pressure 124 mm[Hg] 124 mm[Hg] M EDENT ([facility]) sitting Diastolic blood pressure 76 mm[Hg] 76 mm[Hg] MEDENT ([facility]) sitting, large cuff Systolic blood pressure 126 mm[Hg] 126 mm[Hg] M EDENT ([facility]) sitting, large cuff Respiratory rate 16 /min 16 /min MEDENT ( [facility]) Heart rate 84 /min 84 /min MEDENT (Cardio logy [facility]) Regular Body mass index (BMI) [Ratio] 36.5 kg/m2 36.5 k g/m2 MEDENT ([facility]) Body height 68 [in_i] 68 [in_i] MEDENT ([facility]) 5'8" Body weight 240.00 [lb_av] 240.00 [lb_av] MEDEN T ([facility])
--- NOTE | 2020-07-16 16:03 | HPEPDOC ---
[facility] Medical History & Physical Date of Admission Jul 16, 2020 Date of Service: Jul 16, 2020 Attending Physician: Yesesnia Cerna MD History and Physical CHIEF COMPLAINT: Loss of consciousness HISTORY OF PRESENT ILLNESS: Patient is a 70-year-old male with past medical history of diabetes mellitus, syringomyelia with right-sided deficits, gait instability, LIANNA on nightly CPAP, hypertension, iron deficiency anemia, hyperlipidemia, depression, BPH, low testosterone, GERD, anxiety who presented to [facility] emergency room after having multiple falls over the last several days and syncopal episode 07/15/2020. The patient initially fell on 07/13/2020 backwards out of a backless chair at a diner. He had no neurological deficits and was not taken to the hospital at that time. On 07/15/2020 the patient had an episode of loss of consciousness where he states he had no preliminary dizziness or lightheadedness but became weak and blacked out before hitting the floor. He states he must not have been out for a couple of seconds because he rapidly awoke. This was not a witnessed event. He has had this happen in the past but does not know the reason why that happened before. He denies bowel or bladder loss, tremoring, shaking, seizure history. On 07/15/20 going up the stairs after exercising on his exercise bike he states he had increased weakness of the left lower extremity. He states he could not lift his left leg to go up the stairs from the landing. This overtime went away when he woke up this morning he had no left-sided weakness. He has chronic right-sided upper and right lower extremity weakness from his syringomyelia which she follows with neurology outpatient for. He was discussing his issues with family today and was encouraged to come to the ER to get checked out. No chest pain, shortness of breath, nausea, vomiting, fevers, chills, lightheadedness, dizziness, headache, facial drooping being noted. In the emergency room, vital signs showed blood pressure [id number], afebrile, other vital signs were within normal limits and he remained on room air saturating in the mid 90s. Creatinine was elevated at 1.61, baseline creatinine appears to be close to this from earlier June 2020. It appears since January 2020 his creatinine has increased. H&H was low at 8.9/27.8, baseline hemoglobin was around 10 earlier this year. No signs or symptoms of bleeding. CT head negative, chest x-ray negative. Orthostatics negative CK slightly elevated at 733. Trop neg, ECG showed to be SR, ? 1st degree block. Blood sugar within normal limits. Neurological examination showed some mild right lower extremity weakness 4/5 compared to other ext 5/5; however, patient states this is his baseline. Patient was admitted for further workup of syncope, unsteady gait with falls. REVIEW OF SYSTEMS: CONSTITUTIONAL: Denies lack of energy, unexplained weight gain or weight loss, loss of appetite, fever, night sweats EYES: Denies eye drainage, eye pain, visual changes, dry/irritated eye EARS, NOSE, MOUTH, THROAT: Denies difficulty hearing, ringing in ears, mouth sores, loose teeth, sore throat, facial numbness or pain NECK: Denies swollen glands CARDIOVASCULAR: Denies irregular heartbeat, racing heart, chest pains, swelling of feet or legs, pain in legs with walking RESPIRATORY: Denies shortness of breath, night sweats, wheezing, sputum production, oxygen at home, coughing up blood, cough lasting > 1 month GASTROINTESTINAL: Denies abdominal pain, constipation, bloody stool, diarrhea, heartburn, nausea, vomiting GENITOURINARY: Denies painful urination, bloody urine, frequent urination, urgency, leaking urine, impotence MUSCULOSKELETAL: Denies joint pain, muscle pain, leg swelling INTEGUMENTARY: Denies rash, itching, new skin lesion, change in existing skin lesion, hair loss or increase, breast changes. NEUROLOGICAL: Denies headaches, dizziness PSYCHIATRIC: Denies depression, anxiety, recurrent bad thoughts, mood swings, hallucinations PAST MEDICAL HISTORY: DM type II Syringomyelia with right-sided deficits Gait instability LIANNA on nightly CPAP HTN GREGORY HLD Depression BPH Low testosterone hx GERD anxiety PAST SURGICAL HISTORY: Shunt placement 1978 Removal of right scalene muscle FAMILY HISTORY: Father: CAD, at 58 Mother: CHF. in 70's SOCIAL HISTORY: Prior smoker 4PPD for 12 years, quit 1986. Drinks alcohol socially. Denies drug use. Lives with family locally. PCP- Dr. Teodoro Hamilton, Neurologist- Dr. Bryant, Glost Tile Sorter- Dr. Rich, Spraying Machine Operator- Dr. Gonzalez. Full code ALLERGIES: Please see below. HOME MEDICATIONS: Please see below. PHYSICAL EXAMINATION: VS: Please see below CONSTITUTIONAL: No acute distress, resting comfortably, AAO x 3 EYES: PERRLA, EOM intact HENT, MOUTH: Normocephalic, atraumatic, moist mucous membranes, NECK: SUPPLE, no JVD, no lymphadenopathy, no carotid bruit CV: Regular rate and rhythm, S1S2 normal, no murmurs/rubs/gallops RESPIRATORY: Clear to auscultation bilaterally, no rales/rhonchi/wheezes GI: obese abd, BS positive in 4 quadrants, soft, nontender, distended, no rebound or guarding, no organomegaly : Deferred MUSCULOSKELETAL: Normal ROM. No cyanosis, clubbing, swelling, joint deformity, extremity edema INTEGUMENTARY: Intact, no rashes, no lesions, no erythema NEUROLOGIC: Cranial Nerves II-XII are intact, no focal deficits. 4/5 RLE strength, 5/5 in all other ext, no sensory or motor deficits PSYCHIATRIC: Mood and affect are normal LABORATORY DATA: Please see below MICROBIOLOGY: F/u UA IMAGING: CT head: neg CXR: no acute cardiopulm abnormalities ASSESSMENT: 70-year-old male with past medical history of diabetes mellitus, syringomyelia with right-sided deficits, gait instability, LIANNA on nightly CPAP, hypertension, iron deficiency anemia, hyperlipidemia, depression, BPH, low testosterone, GERD, anxiety admitted for syncope, unsteady gait with falls a dmitted for further workup of syncope, unsteady gait with falls. PLAN: Syncope r/o cardiac vs. neuro (vasovagal, TIA?) vs. other cause. Uncontrolled BP -LOC with new left side deficits which resolved by this AM -No new focal deficits noted today, orthostatics neg in ER -CT head neg -Last echo 2015: EF 50% -F/u carotid US, echo, MRI brain, lipid panel -C/w ASA, statin, BP meds -Neuro checks [id number], tele Left leg weakness, resolved -R/o TIA -C/w plan above Hypertensive urgency likely 2/2 to increased anxiety -States his recent check ups have shown him to be controlled. -Compliant with home meds -C/w home meds, low salt diet -Tele Gait instability, acute on chronic s/p falls -PT/OT CKD Stage II -Cr near his baseline -Follows with nephrology -C/w home meds -Daily labs DM type II -F/u HbA1c, lipid panel -C/w home meds, ISS, AC/HS FS, consistent carb diet Syringomyelia with right-sided deficits, s/p shunt placement -Baseline weakness in Right lower ext today -Follows with Dr. bryant o/p -F/u MRI above LIANNA on nightly CPAP -Can use home Cpap GREGORY -H/H appears lower than normal -F/u iron studies -Daily CBC -No s/s of bleeding HLD -C/w home med Depression/anxiety -C/w home med BPH C/w flomax Low testosterone hx -F/u with PCP GERD -C/w PPI DVT px -Heparin DISPOSITION: Admitted as acute inpatient. F/u imaging, PT/OT above. Plan is hopeful for discharge home when medically improve.d Vital Signs Vital Signs Date Time Temp Pulse Resp B/P (MAP) Pulse Ox O2 Delivery O2 Flow Rate FiO2 07/16/20 15:32 80 99 Room Air 07/16/20 15:30 196/87 (123) 07/16/20 13:46 96.5 20 Laboratory Data Labs 24H Laboratory Tests 2 07/16/20 14:36: Immature Granulocyte % (Auto) 0.2, Neutrophils (%) (Auto) 65.2, Lymphocytes (%) (Auto) 20.6L, Monocytes (%) (Auto) 11.9H, Eosinophils (%) (Auto) 1.6, Basophils (%) (Auto) 0.5, Neutrophils # (Auto) 4.2, Lymphocytes # (Auto) 1.3L, Monocytes # (Auto) 0.8, Eosinophils # (Auto) 0.1, Basophils # (Auto) 0.0, Nucleated Red Blood Cells % (auto) 0.0, Anion Gap 3L, Glomerular Filtration Rate 45.4, Calcium Level 9.3, Total Creatine Kinase 733H, Creatine Kinase MB 18.7H, Creatine Kinase MB Relative Index 2.55, Troponin I < 0.02, Thyroid Stimulating Hormone (TSH) 1.690 CBC/BMP Laboratory Tests 07/16/20 14:36 Home Medications Scheduled Allopurinol (Allopurinol) 100 Mg Tab, 100 MG PO DAILY Ascorbic Acid (Vitamin C) 500 Mg Tab, 1,000 MG PO DAILY Aspirin (Aspirin EC) 81 Mg Tab, 81 MG PO QHS Furosemide (Furosemide) 40 Mg Tab, 40 MG PO DAILY Hydroxyzine HCl (Hydroxyzine HCl) 10 Mg Tablet, 10 MG PO BID Insulin Glargine (Lantus) 1 Units/0.01 Ml Susp, 26 UNITS SC DAILY Multivitamins (Thera M Plus Tablet) 1 Tab Tab, 1 TAB PO DAILY Omeprazole (Omeprazole) 20 Mg Tab, 40 MG PO DAILY Primidone (Primidone) 50 Mg Tablet, 25 MG PO BID Rosuvastatin Calcium (Crestor) 20 Mg Tab, 20 MG PO QHS Sertraline HCl (Sertraline HCl) 50 Mg Tablet, 50 MG PO DAILY Tamsulosin HCl (Flomax) 0.4 Mg Cap, 0.4 MG PO QHS Telmisartan (Micardis) 20 Mg Tab, 10 MG PO QHS Scheduled PRN Nitroglycerin (Nitrostat) 0.4 Mg Subl, 0.4 MG SL NITRO PRN for ANGINA Allergies Coded Allergies: lisinopril (Verified Adverse Reaction, Intermediate, HYPOTENSION, 01/18/20) metformin (Verified Adverse Reaction, Intermediate, LOWERS KIDNEY FUNCTON, 01/18/20) finasteride (Verified Adverse Reaction, Unknown, DIZZINESS, 07/16/20) A-FIB/CHADSVASC A-FIB History Current/History of A-Fib/PAF?: No Current PO Anticoag Therapy: No Age/Risk Factor Scoring CHADSVASC: CHADSVASC Response (Comments) Value Age Risk Factor Age 65-74 years old 1 Gender Risk Factor Male 0 Hx of CHF Yes 1 Hx of HTN Yes 1 Hx of Stroke/TIA/or VTE No 0 Hx of Diabetes Yes 1 Hx of Vascular Disease No 0 Total 4 Treatment Treatment ordered: Other Other anticoagulant ordered: heparin Yessenia Cerna MD Jul 16, 2020 16:03
[2020-07-16] MEDS ORDERED: SERT50TA29 PO (16:21)
[2020-07-16] MEDS ORDERED: HYDR-643 PO (16:21)
[2020-07-16] MEDS ORDERED: PRIM50TA6 PO (16:21)
--- OUTSIDE RECORDS SUMMARY | 2020-07-16 16:30 | CCD ---
Author Author [facility] Organization [facility] Address Unknown Phone Unavailable Care Team Providers Care Dental Insurance Coordinator Name Role Phone LacywRaquel PA Unavailable Unavailable [...] PA Unavailable Unavailable Madeline, Rachel W Elsy ROVING OR YARN COLOR CHECKER-C Unavailable Unavailabl e Madeline, Reginabetina W Elsy ROVING OR YARN COLOR CHECKER-C Unavailable Unavailabl e Madeline, Regina W Elsy ROVING OR YARN COLOR CHECKER-C Unavailable Unavailabl e Madeline, Regina W Elsy ROVING OR YARN COLOR CHECKER-C Unavailable Unavailabl e Madeline, Regina W Elsy ROVING OR YARN COLOR CHECKER-C Unavailable Unavailabl e Madeline, Regina W Elsy ROVING OR YARN COLOR CHECKER-C Unavailable Unavailabl e Madeline, Regina W Elsy ROVING OR YARN COLOR CHECKER-C Unavailable Unavailabl e Madeline, Regina W Elsy ROVING OR YARN COLOR CHECKER-C Unavailable Unavailabl e Madeline, Regina W Elsy ROVING OR YARN COLOR CHECKER-C Unavailable Unavailabl e Madeline, Regina W Elsy ROVING OR YARN COLOR CHECKER-C Unavailable Unavailabl e Madeline, Regina W Elsy ROVING OR YARN COLOR CHECKER-C Unavailable Unavailabl e Madeline, Regina W Elsy ROVING OR YARN COLOR CHECKER-C Unavailable Unavailabl e Madeline, Regina W Elsy ROVING OR YARN COLOR CHECKER-C Unavailable Unavailabl e Madeline, Regina W Elsy ROVING OR YARN COLOR CHECKER-C Unavailable Unavailabl e Madeline, Regina W Elsy ROVING OR YARN COLOR CHECKER-C Unavailable Unavailabl e Madeline, Regina W Elsy ROVING OR YARN COLOR CHECKER-C Unavailable Unavailabl e Madeline, Regina W Elsy ROVING OR YARN COLOR CHECKER-C Unavailable Unavailabl e Madeline, Regina W Elsy ROVING OR YARN COLOR CHECKER-C Unavailable Unavailabl e Madeline, Regina W Elsy ROVING OR YARN COLOR CHECKER-C Unavailable Unavailabl e Madeline, Regina W Elsy ROVING OR YARN COLOR CHECKER-C Unavailable Unavailabl e Madeline, Regina W Elsy ROVING OR YARN COLOR CHECKER-C Unavailable Unavailabl e Madeline, Reginabetina W Elsy ROVING OR YARN COLOR CHECKER-C Unavailable Unavailabl e Madeline, Reginabetina W Elsy ROVING OR YARN COLOR CHECKER-C Unavailable Unavailabl e Madeline, Reginabetina W Elsy ROVING OR YARN COLOR CHECKER-C Unavailable Unavailabl e Madeline, Reginah W Elsy ROVING OR YARN COLOR CHECKER-C Unavailable Unavailabl e Madeline, Reginabetina W Elsy ROVING OR YARN COLOR CHECKER-C Unavailable Unavailabl e Madeline, Reginah W Elsy ROVING OR YARN COLOR CHECKER-C Unavailable Unavailabl e Madeline, Reginah W Elsy ROVING OR YARN COLOR CHECKER-C Unavailable Unavailabl e Madeline, Reginabetina W Elsy ROVING OR YARN COLOR CHECKER-C Unavailable Unavailabl e Madeline, Miguelinabetina W Elsy ROVING OR YARN COLOR CHECKER-C Unavailable Unavailabl e Madeline, Rachel Chin ROVING OR YARN COLOR CHECKER-C Unavailable Unavailabl e Madeline, Rachel Chin ROVING OR YARN COLOR CHECKER-C Unavailable Unavailabl e Mayuri MCDONALDEW DO Unavailable [...] Unavailable [phone] Mayuri MCDONALD DO Unavailable [phone] Mayuri MCDONALD DO Unavailable [phone] Mayuri MCDONALD DO Unavailable [phone] Mayuri MCDONALD DO Unavailable [phone] Mayuri MCDONALD DO Unavailable [phone] Mayuri MCDONALD DO Unavailable [phone] Re-disclosure Warning The records that you [...] is protected by Article 27-F of the [place] [facility] Public [facility] law. If you continue you may have access to information: Regarding HIV / AIDS; Provided by facilities licensed or operated by the [facility] Office of Mental Health; or Provided by the [facility] Office for People With Developmental Disabilities. If such information is present, then the following [facility] mandated warning applies: This information has been [...] law may result in a fine or group home sentence or both. A general authorization for [...] Unknown Problem [facility] ([facility]) Unknown Male Problem [facility] ([facility]) Encounters Encounter Providers Location Date Indications Data Source(s ) Office Visit Attender: TATIANA FIORE MD Main Office 04/29/2020 10: 13:00 AM EDT [facility] ([facility]) Outpatient Attender: Italia BRENNER Main office - [facility] 04/08/2020 10:00:00 AM EDT [facility] ([facility]) Outpatient Attender: Sarah BRENNER Main Office 04/02/2020 10:45:00 AM EDT [facility] ([facility]) Office Visit Attender: TATIANA FIORE MD Main Office 03/26/2020 01: 39:00 PM EDT [facility] ([facility]) Outpatient Attender: EL MCDONALD DO 0 03/18/2020 06:54:00 AM EDT - 03/18/2020 09:25:00 AM EDT [facility] Patient discharged. Outpatient Attender: Elsy RITTER-[facility]ino[facility] EMERGENCY ROOM-LAB REF 03/13/2020 08:20:00 AM EDT - 03/13/2020 08:20:00 AM EDT [facility] 03/10/2020 12:00:00 AM EDT eCW1 ([facility]) Office Visit Attender: TATIANA FIORE MD Main Office 02/28/2020 03: 47:00 PM EDT [facility] ([facility]) Outpatient Attender: EL MCDONALD DO 0 02/12/2020 10:10:00 AM EDT - 02/12/2020 12:15:00 PM EDT [facility] Patient discharged. Outpatient Attender: Elsy RITTER-[facility]inoo EMERGENCY ROOM-LAB REF 02/07/2020 11:13:00 AM EDT - 02/07/2020 11:13:00 AM EDT [facility] 02/06/2020 12:00:00 AM EDT eCW1 ([facility]) Office Visit Attender: TATIANA FIORE MD Main Office 01/26/2020 01: 23:00 PM EDT [facility] ([facility]) Office Visit Attender: TATIANA FIORE MD Main Office 12/27/2019 12: 56:00 PM EDT [facility] ([facility]) Office Visit Attender: TATIANA FIORE MD Main Office 11/23/2019 10: 47:00 AM EDT [facility] ([facility]) Outpatient Attender: EL MCDONALD DO 11/13/2019 07:30 :00 AM [facility] Office Visit Attender: TATIANA FIORE MD Main Office 10/24/2019 12: 54:00 PM EDT [facility] ([facility]) Outpatient Attender: EL MCDONALD DO 10/16/2019 07:30 :00 AM [facility] Outpatient Attender: Sarah BRENNER Main Office 10/06/2019 10:15:00 AM EDT [facility] ([facility]) Insurance Providers Payer name Policy type / Coverage type Policy ID Covered green party ID Covered green party's relationship to cardenas Policy Cardenas Plan Information MEDICARE [id number] SP [id number] BCBS FEDERAL EMPLOYEE PROGRAM [id number] SP [id number] FOR LIFE [id number] SP [id number] [facility] FEDERAL SERVICES [id number] S [id number] [place] [id number] S [id number] [place] MEDICARE DIVISION [id number] S [id number] MEDICARE - [place] [id number] S [id number] [facility] FEDERAL SERVICES [id number] S [id number] MEDICARE C [id number] S [id number] FOR LIFE O [id number] S [id number] BS [place] FEDERAL S [id number] S [id number] [facility] WPS [id number] S [id number] [facility] FEDERAL SERVICES [id number] S [id number] For Life Secondary ONLY [id number] 0 [id number] [facility] [id number] 0 [id number] Medicare Part B [facility] [id number] 0 [id number] For Life Medigap Part B [id number] Self [id number] Federal BC/BS Commercial [id number] Self [id number] Medicare Part B Medicare Primary [id number] Self [id number] For Life Secondary ONLY [id number] 0 [id number] For Life - WPS Medigap Part B [id number] Self [id number] Medicare (Part B) Medicare Primary [id number] Self [id number] BCBS Federal Medigap Part B [id number] Self [id number] For Life - [place]PS Medigap Part B [id number] Self [id number] Medicare (Part B) Medicare Primary [id number] Self [id number] FOR LIFE U [id number] Self [id number] MEDICARE A [id number] Self [id number] BLUE CARD C [id number] Self [id number] MEDICARE PI PI PI YASH BARRY BCBS PI PI MEDICARE [id number] Mulu [id number] A BS Federal Medigap Part B [id number] Self [id number] [place] Primary [id number] Self [id number] MEDICARE [id number] SP [id number] MEDICARE [id number] SP [id number] A For Life Medigap Part B [id number] Self [id number] Federal BC/BS Commercial [id number] Self [id number] Medicare Part B Medicare Primary [id number] Self [id number] For Life Reg 1 Medigap Part B [id number] Self [id number] BCBS Federal Medigap Part B [id number] Self [id number] Medicare - [facility] Medicare Primary [id number] Self [id number] For Life - [place]PS Medigap Part B [id number] Self [id number] Medicare (Part B) Medicare Primary [id number] Self [id number] For Life Medigap Part B [id number] Self [id number] Federal BC/BS Commercial [id number] Self [id number] Medicare Part B Medicare Primary [id number] Self [id number] FOR LIFE [id number] SP [id number] BCBS FEDERAL EMPLOYEE PROGRAM [id number] SP [id number] For Life Medigap Part B [id number] Self [id number] Federal BC/BS Commercial [id number] Self [id number] Medicare Part B Medicare Primary [id number] Self [id number] For Life - [place] Medigap Part B [id number] Self [id number] Medicare (Part B) Medicare Primary [id number] Self [id number] For Life Reg 1 Medigap Part B [id number] Self [id number] BCBS Federal Medigap Part B [id number] Self [id number] Medicare - [facility] Medicare Primary [id number] Self [id number] Healthnet Federal Service Medigap Part B [id number] Self [id number] BS Fed Plan Medigap Part B [id number] Self [id number] Bshmo ZFC,Yot,ZFH,Ymb,ZFP Health Maintenance Organization (HMO) YOP [id number] Self [id number] Medicare Dme Supplies Medigap Part B [id number] Self [id number] [place] Primary [id number] Self [id number] [facility] Federal Service Medigap Part B [id number] Self [id number] BS Fed Plan Medigap Part B [id number] Self [id number] Bshmo ZFC,Yot,ZFH,Ymb,ZFP Health Maintenance Organization (HMO) YOP [id number] Self [id number] Medicare Dme Supplies Medigap Part B [id number] Self [id number] [place] Primary [id number] Self [id number] [employer]CELL[employer] BCBS FEDERAL [id number] SP [id number] FOR LIFE -O/P [id number] 18 [id number] [facility] FEDERAL -O/P [id number] 18 [id number] MEDICARE PART A -O/P [id number] 18 [id number] For Life Medigap Part B [id number] Self [id number] Federal BC/BS Commercial [id number] Self [id number] Medicare Part B Medicare Primary [id number] Self [id number] For Life - [place]PS Medigap Part B [id number] Self [id number] Medicare (Part B) Medicare Primary [id number] Self [id number] Healthnet Federal Service Medigap Part B [id number] Self [id number] BS Fed Plan Medigap Part B [id number] Self [id number] Bshmo ZFC,Yot,ZFH,Ymb,ZFP Health Maintenance Organization (HMO) YOP [id number] Self [id number] Medicare [facility] Medicare Primary [id number] Self [id number] Healthnet Federal Service Medigap Part B [id number] Self [id number] BS Fed Plan Medigap Part B [id number] Self [id number] Bshmo ZFC,Yot,ZFH,Ymb,ZFP Health Maintenance Organization (HMO) YOP [id number] Self [id number] [place] Primary [id number] Self [id number] For Life - [place]PS Medigap Part B [id number] Self [id number] Medicare (Part B) Medicare Primary [id number] Self [id number] MEDICARE [id number] SP [id number] A Medicare (Part B) Medicare Primary Self For Life - WPS Medigap Part B Self BC/BS Federal Medigap Part B Self MEDICARE [id number] SP [id number] A Medicare Medicare Primary Self BC BS [place] FEDERAL [id number] SP [id number] MEDICARE P [id number] S [id number] A [id number] Mulu [id number] MEDICARE [id number] Mulu [id number] A86 EXCELLUS BCBS [id number] Mulu [id number] 162 [id number] Mulu [id number] EXCELLUS BCBS [id number] Mulu [id number] Problems, Conditions, and Diagnoses Code Display Name Description Problem Type Effective Dates Data Source(s) H52.202 Unspecified astigmatism, left eye UNSPECIFIED TIGMATISM, LEFT EYE Diagnosis 03/18/2020 06:54:00 AM [facility] H25.12 Age-related nuclear cataract, left eye A GE-RELATED NUCLEAR CATARACT, LEFT EYE Diagnosis [facility] Encounter for other preprocedural examin ation ENCOUNTER FOR OTHER PREPROCEDURAL EXAMIN Diagnosis 03/13/2020 08:20:00 AM EDT [facility] Z98.41 Cataract extraction status, right eye CA TARACT EXTRACTION STATUS, RIGHT EYE Diagnosis 02/12/2020 10:10:00 AM [facility] l H52.31 Anisometropia ANISOMETROPIA Diagnosis 02/12/2020 10:10:00 AM [facility] Surgeries/Procedures Procedure Description Date Indications Data Source(s) MYOCARDIAL SPECT MULTIPLE STUDIES 04/16/2020 12:00:00 AM EDT [facility] ([facility]) CV STRS TST XERS&/OR RX CONT ECG PHYS SI&R 04/16/2020 12:00:00 AM EDT [facility] ([facility]) ECG ROUTINE ECG W/LEAST 12 LDS W/I&R 04/02/2020 12:00: 00 AM EDT [facility] ([facility]) ECG ROUTINE ECG W/LEAST 12 LDS W/I&R 10/06/2019 12:00: 00 AM EDT [facility] ([facility]) Results ID Date Data Source [id number] 05/28/2020 12:36:00 PM EST [facility] ([facility]) Name Value Range Interpretation Code Description Data Alia rce(s) Supporting Document(s) Magnesium Level 2.14 [facility] ([facility]) ID Date Data Source [id number] 05/28/2020 12:36:00 PM EST [facility] ([facility]) Name Value Range Interpretation Code Description Data Alia rce(s) Supporting Document(s) White Blood Count 5.2 4.3-10.9 [facility] ([facility]) Red Blood Count 3.32 4.70-6.20 [facility] ([facility]) Platelets 195 130-400 [facility] Hemoglobin 10.6 13.0-17.0 [facility] ([facility]) Hematocrit 32.6 39.0-50.0 [facility] ([facility]) ID Date Data Source [id number] 05/28/2020 12:36:00 PM EST [facility] ([facility]) Name Value Range Interpretation Code Description Data Alia rce(s) Supporting Document(s) Glucose 105 70-100 [facility] ([facility]) Creatinine 1.2 0.6-1.5 [facility] ([facility]) Blood Urea Nitrogen 48.1 5-21 [facility] ([facility]) Glomerular filtration rate/1.73 sq M.pre dicted [Volume Rate/Area] in Serum or Plasma by Creatinine-based formula (MDRD) 60 [facility] ([facility]) Sodium 137.6 136-146 [facility] ([facility]) Potassium 4.89 3.5-5.3 [facility] Chloride 97.6 98-110 [facility] ([facility]) Carbon Dioxide 31.3 20-32 [facility] ([facility]) Calcium 8.9 8.4-10.4 [facility] ([facility]) Phosphorus 3.6 [facility] ([facility]) Albumin 4.0 3.5-4.7 [facility] ([facility]) ID Date Data Source [id number] 04/18/2020 12:00:00 AM EDT [facility] Gurjit Lopez Manager [employer] Patient Name: ELLY [id number] Date of : 1950[place] [address] Date of Exam: 04/18/2020#: Fax: [phone] EXAM: [...] rce(s) Supporting Document(s) ID Date Data Source [id number] 04/15/2020 12:00:00 AM EDT [facility] Gurjit Borregojorge Manager [employer] Patient Name: ELLY [id number] Date of : 1950[place] [address] Date of Exam: 04/15/2020#: Fax: [phone] EXAM: [...] ordered or performed.IMPRESSION:Unremarkable renal ultrasonography.Accredited by the [employer] in General Ultrasound.LEN Jeffery/Mykel you for referring ELLY VILCHIS to our office. Electronically Signed - JOHANNA MARTINEZ DO 04/15/20 10:24 Name Value Range Interpretation Code Description Data Alia rce(s) Supporting Document(s) ID Date Data Source [id number] 04/02/2020 07:17:00 AM EDT [facility] l Preoperative Diagnosis: 1. Visually [...] rce(s) Supporting Document(s) ID Date Data Source [id number] 03/26/2020 03:46:00 PM EDT [facility]) Name Value Range Interpretation Code Description Data Alia rce(s) Supporting Document(s) White Blood Count 5.8 4.3-10.9 [facility] ([facility]) Red Blood Count 3.48 4.70-6.20 [facility] ([facility]) Platelets 240 130-400 [facility] ([facility]) Hematocrit 34.9 39.0-50.0 [facility] ([facility]) Hemoglobin 10.9 13.0-17.0 [facility] ([facility]iology [facility]) ID Date Data Source [id number] 03/26/2020 03:46:00 PM EDT [facility] ([facility]) Name Value Range Interpretation Code Description Data Alia rce(s) Supporting Document(s) Glucose 146 70-100 [facility] Blood Urea Nitrogen 55.9 5-21 [facility] ([facility]) Glomerular filtration rate/1.73 sq M.pre dicted [Volume Rate/Area] in Serum or Plasma by Creatinine-based formula (MDRD) 43 [facility] ([facility]) Creatinine 1.6 0.6-1.5 [facility] ([facility] [...] ssociates of [place]) ID Date Data Source [id number] 03/14/2020 02:05:00 PM EDT [facility] Name Value Range Interpretation Code Description Data Alia rce(s) Supporting Document(s) SARS-CoV-2, TAPAN Not Detected Not Detected [facility] This nucleic acid amplification test was developed and its performancecharacteristics determined by [facility]. Nucleic acidamplification tests include PCR and TMA. [...] in this assay. ID Date Data Source [id number] 03/13/2020 08:00:00 AM EDT [facility] Name Value Range Interpretation Code Description Data Alia rce(s) Supporting Document(s) SARS coronavirus 2 RNA [facility] This lab was ordered by [facility] a nd reported by [facility]. ID Date Data Source [id number] 03/14/2020 02:05:00 PM EDT [facility] Name Value Range Interpretation Code Description Data Alia rce(s) Supporting Document(s) Inpatient [facility] Received ID Date Data Source [id number] 03/14/2020 02:06:[facility] Name Value Range Interpretation Code Description Data Alia rce(s) Supporting Document(s) SARS COV2 Not Detected Not Detected [facility] This nucleic acid amplification test was [...] SARS-CoV-2 virusand/or diagnosis of COVID-19 infection under eeotdbb304(b)(1) of the Act, 21 U.S.C. 360bbb-3(b) (1), [...] in this assay. ID Date Data Source [id number] 02/15/2020 07:19:00 AM EDT [facility] Preoperative Diagnosis:1. Anisometropi a, right [...] rce(s) Supporting Document(s) ID Date Data Source [id number] 02/08/2020 02:05:00 PM EDT [facility] Name Value [...] in this assay. ID Date Data Source [id number] 02/07/2020 08:00:00 AM EDT [facility] Name Value Range Interpretation Code Description Data Alia rce(s) Supporting Document(s) SARS coronavirus 2 RNA [facility] This lab was ordered by [facility] a nd reported by [facility]. ID Date Data Source [id number] 02/08/2020 02:06:00 PM EDT [facility] Name Value Range Interpretation Code Description Data Alia rce(s) Supporting Document(s) SARS COV2 Not Detected Not Detected [facility] Testing was performed using the magno(R) SARS-CoV-2 test.This test was developed and its performance characteristicsdetermined by [facility]. This test has not beenFDA cleared or [...] this assay.Per formed at: RN - [facility] [address] [id number] Director: Gracia Jaramillo MD, Phone: [phone] ID Date Data Source [id number] 01/20/2020 12:00:00 AM EDT [facility] Name Value Range Interpretation Code Description Data Alia rce(s) Supporting Document(s) SARS coronavirus 2 RNA [facility] This lab was ordered by [facility] and reported by [facility]. ID Date Data Source [id number] 09/21/2019 02:21:00 PM EDT [facility] Name Value Range Interpretation Code Description Data Alia rce(s) Supporting Document(s) White Blood Count 5.3 5.0-10.0 [facility] ([facility]) Red Blood Count 3.10 4.70-6.10 [facility] ([facility]) Platelets 247 172-450 [facility] ([facility]) Hemoglobin 10.4 14.0-18.0 [facility] (Cardiology [facility]) Hematocrit 31.8 42.0-52.0 [facility] ([facility]) ID Date Data Source [id number] 09/21/2019 02:21:00 PM EDT [facility] ([facility]i ology [facility]) Name Value Range Interpretation Code Description Data Alia rce(s) Supporting Document(s) Glucose 113 70-100 [facility] Creatinine 1.02 0.6-1.4 [facility] ([facility]) Glomerular filtration rate/1.73 sq M.pre dicted [Volume Rate/Area] in Serum or Plasma by Creatinine-based formula (MDRD) 72 [facility] ([facility]) Blood Urea Nitrogen 47.8 7-25 [facility] ([facility]) Carbon Dioxide 29.6 22-33 [facility] ([facility]) Sodium 138.1 135-145 [facility] ([facility]) Potassium 4.69 3.5-5.3 [facility] ([facility]) Chloride 102.8 94-110 [facility] ([facility]) Albumin 4.3 3.5-4.7 [facility] ([facility]) Calcium 9.46 8.7-10.4 [facility] ([facility]) Phosphorus 3.75 [facility] ([facility]) Procedure Social History Code Duration Value Status Description Data Source(s ) Smoking 04/02/2020 12:00:00 AM EDT Patient is a former smoker completed Patient is a former smoker [facility] ([facility]) Vital Signs ID Date Data Source UNK [...] mm[Hg] 7 2 mm[Hg] [facility] ([facility]) Systolic blood pressure--standing 136 mm[Hg] 13 6 mm[Hg] [facility] ([facility]) Diastolic blood pressure 76 mm[Hg] 76 mm[Hg] [facility] ([facility]) sitting Systolic blood pressure 134 mm[Hg] 134 mm[Hg] EDENT ([facility]) sitting Diastolic blood pressure 76 mm[Hg] 76 mm[Hg] [facility] ([facility]) sitting, large cuff Systolic blood pressure 136 mm[Hg] 136 mm[Hg] M EDENT ([facility]) sitting, large cuff Respiratory rate 16 /min 16 /min [facility] ( [facility]) Heart rate 76 /min 76 /min [facility] ([facility] [facility]) Regular Body mass index (BMI) [Ratio] 37.1 kg/m2 37.1 k g/m2 MEDENT ([facility]) Body height 68 [in_i] 68 [in_i] MED[facility] ([facility]) 5'8" Body weight 244.00 [lb_av] 244.00 [lb_av] MEDEN T ([facility]) Diastolic blood pressure--standing 70 mm[Hg] 7 0 mm[Hg] MEDENT ([facility]) Ra Systolic blood pressure--standing 126 mm[Hg] 12 6 mm[Hg] MEDENT ([facility]) Ra Diastolic blood pressure 70 mm[Hg] 70 mm[Hg] MEDENT ([facility]) sitting Systolic blood pressure 124 mm[Hg] 124 mm[Hg] M EDENT ([facility]) sitting Diastolic blood pressure 76 mm[Hg] 76 mm[Hg] MEDENT ([facility]) sitting, large cuff Systolic blood pressure 126 mm[Hg] 126 mm[Hg] M EDENT ([facility]) sitting, large cuff Respiratory rate 16 /min 16 /min MEDENT ( [facility]) Heart rate 84 /min 84 /min [facility] ([facility]) Regular Body mass index (BMI) [Ratio] 36.5 kg/m2 36.5 k g/m2 MEDENT ([facility]) Body height 68 [in_i] 68 [in_i] MEDENT ([facility]) 5'8" Body weight 240.00 [lb_av] 240.00 [lb_av] MEDEN T ([facility])
[2020-07-16] MEDS ORDERED: PILL CUTTER 1 EACH XX PRN (17:15)
[2020-07-16] MEDS ORDERED: GLUCAGON INJ 1MG VIAL SC PRN (17:15)
[2020-07-16] MEDS ORDERED: DEXTROSE 50% 50 ML SYRINGE IV PRN (17:15)
[2020-07-16] MEDS ORDERED: GLUCOSE 4GM CHEW TABLET PO PRN (17:15)
--- NOTE | 2020-07-16 17:26 | ECGEPIP ---
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
[2020-07-16 17:34] LABS: INR 1.03; PROTHROMBIN TIME 13.7 SECONDS (12.5-14.3)
[2020-07-16 17:35] LABS: PARTIAL THROMBOPLASTIN TIME 39.5 SECONDS (24.2-38.5)
[2020-07-16 17:58] LABS: RSV AMPLIFICATION NEGATIVE (NEGATIVE)
[2020-07-16 19:06] VITALS: BP 177/90
[2020-07-16] MEDS: HumaLOG INSULIN (NovoLOG) PER UNIT SC SCH (21:00)
[2020-07-16] MEDS ORDERED: TELMISARTAN 20 MG TAB PO SCH (21:00)
[2020-07-16] MEDS ORDERED: PRIMIDONE 50 MG TAB PO SCH (21:00)
--- NOTE | 2020-07-16 21:16 | REPVR ---
PROCEDURE INFORMATION: Exam: MR Head Without Contrast Exam date and time: 07/16/2020 8:45 PM Age: 70 years old Clinical indication: Other: Syncopal episode; Additional info: Syncope, HX of syringomyelia with right side def, shunt TECHNIQUE: Imaging protocol: MR of the head without contrast. COMPARISON: CT Head without contrast 07/16/2020 2:39 PM FINDINGS: Brain: There is no restricted diffusion to suggest acute infarction. No acute intracranial hemorrhage or prior microhemorrhages. Evidence of Chiari 1 malformation. On the T1 weighted sequence there is hyperintensity in the inferior medial right cerebellar hemisphere which could be due to artifact or mineral deposition among other etiologies. There is patchy hyperintensity within the miguel on the FLAIR and T2 weighted sequences which can be seen with microangiopathy among other etiologies. Increased signal intensity of the deep and subcortical white matter on the FLAIR and T2 weighted sequences is most consistent with microangiopathy. Cerebral ventricles: The ventricles appear enlarged, but not out of proportion to the degree of parenchymal volume loss. Bones/joints: Unremarkable. Paranasal sinuses: Normal as visualized. No acute sinusitis. Mastoid air cells: Normal as visualized. No mastoid effusion. Orbits: Unremarkable. Soft tissues: Unremarkable. Other vasculature: Flow is seen in the major intracerebral arteries. IMPRESSION: No acute intracranial findings. Electronically signed by: Eliza Weston On 07/16/2020 21:17:05 PM
--- NOTE | 2020-07-16 21:31 | REPVR ---
PROCEDURE INFORMATION: Exam: US Duplex Bilateral Extracranial Arteries Exam date and time: 07/16/2020 9:12 PM Age: 70 years old Clinical indication: Syncope and collapse TECHNIQUE: Imaging protocol: Real-time Duplex ultrasound scan of the bilateral carotid and vertebral arteries combining omalley scale, color Doppler and spectral waveform analysis. Bilateral exam. COMPARISON: CT Head without contrast 07/16/2020 2:39 PM FINDINGS: Right common carotid artery: Peak systolic velocity is 89 cm/s. No occlusion or stenosis. Waveforms are normal. Right internal carotid artery: Peak systolic velocity is 131 cm/s. No occlusion or stenosis. Waveforms are normal. Right ICA/CCA ratio: Within normal limits. 1.5 Right external carotid artery: No stenosis in the origin. Right vertebral artery: Unremarkable. Antegrade flow. Left common carotid artery: Peak systolic velocity 120 cm/s. No occlusion or stenosis. Waveforms are normal. Left internal carotid artery: Peak systolic velocity 111 cm/s. No occlusion or stenosis. Waveforms are normal. Left ICA/CCA ratio: Within normal limits. 0.93 Left external carotid artery: No stenosis in the origin. Left vertebral artery: Unremarkable. Antegrade flow. IMPRESSION: No carotid arterial stenosis identified however there is a welder metal fab's note that the proximal right ICA is only partially assessed due to shadowing from calcified atheromatous plaque. REFERENCES: SRU CRITERIA. The degree of internal carotid artery stenosis is based on criteria defined by the Society of Radiologists in Ultrasound (SRU). Normal is no stenosis. Mild is less than 50% stenosis. Moderate is 50-69% stenosis. Severe is greater than 69% stenosis to near occlusion. Near occlusion is a markedly narrowed lumen. Total occlusion is no detectable patent lumen. Electronically signed by: Eliza Weston On 07/16/2020 21:31:32 PM
[2020-07-16] MEDS: TAMSULOSIN 0.4 MG CAP PO SCH (21:58)
[2020-07-16] MEDS: HEPARIN SOD (PORCINE) 5000UNITS/ML 1ML VIAL/SYRINGE SC SCH (21:58)
[2020-07-16 22:00] VITALS: BP 159/76
[2020-07-16] MEDS: PRIMIDONE 25MG PER 1/2 TABLET PO SCH (22:00)
[2020-07-16] MEDS: hydrOXYzine 10 MG TAB PO SCH (22:00)
[2020-07-16] MEDS: ROSUVASTATIN 10 MG TAB (CRESTOR) PO SCH (22:00)
[2020-07-16] MEDS: ASPIRIN 81 MG ENTERIC TAB PO SCH (22:00)
[2020-07-17 06:00] VITALS: BP 154/66
[2020-07-17 06:22] LABS: HEMOGLOBIN 8.3 g/dl (13.5-17.5); MEAN CORPUSCULAR HEMOGLOBIN 28.9 pg (27.0-33.0); MEAN CORPUSCULAR HGB CONC 30.7 g/dl (32.0-36.5); MEAN CORPUSCULAR VOLUME 94.1 fl (80.0-96.0); PLATELET COUNT, AUTOMATED 248 10^3/uL (150-450); RED BLOOD COUNT 2.87 10^6/uL (4.30-6.10); WHITE BLOOD COUNT 3.9 10^3/uL (4.0-10.0)
[2020-07-17 06:56] LABS: ALBUMIN 3.6 GM/DL (3.2-5.2); ALT/SGPT 44 U/L (12-78); BILIRUBIN,TOTAL 0.2 MG/DL (0.2-1.0); BLOOD UREA NITROGEN 40 MG/DL (7-18); CALCIUM LEVEL 9.2 MG/DL (8.8-10.2); CARBON DIOXIDE LEVEL 33 MEQ/L (21-32); CHLORIDE LEVEL 103 MEQ/L (98-107); CHOLESTEROL LEVEL 132 MG/DL (<200); CREATININE FOR GFR 1.17 MG/DL (0.70-1.30); GLOMERULAR FILTRATION RATE > 60.0 (>42); GLUCOSE, FASTING 89 MG/DL (70-100); HDL CHOLESTEROL 79 MG/DL (>40); LDL CHOLESTEROL 40 MG/DL (<100); NON-HDL-C 53 MG/DL; POTASSIUM SERUM 4.3 MEQ/L (3.5-5.1); SODIUM LEVEL 138 MEQ/L (136-145); TRIGLYCERIDES LEVEL 65 MG/DL (<150)
[2020-07-17 07:06] LABS: HEMOGLOBIN A1c 6.5 %
[2020-07-17] MEDS: HumaLOG INSULIN (NovoLOG) PER UNIT SC SCH ×4 (07:30→20:28)
[2020-07-17] MEDS: HEPARIN SOD (PORCINE) 5000UNITS/ML 1ML VIAL/SYRINGE SC SCH ×2 (09:02→20:35)
[2020-07-17] MEDS: LEVEMIR (INSULIN DETEMIR) 1 UNITS/0.01ML SC SCH (09:02)
[2020-07-17] MEDS: ASCORBIC ACID 500 MG TAB PO SCH (09:03)
[2020-07-17] MEDS: allopurinoL 100 MG TAB PO SCH (09:03)
[2020-07-17] MEDS: FERROUS SULFATE 325MG TAB PO SCH ×2 (09:03→20:34)
[2020-07-17] MEDS: PRIMIDONE 25MG PER 1/2 TABLET PO SCH ×2 (09:03→20:34)
[2020-07-17] MEDS: SERTRALINE HCL 50 MG TAB PO SCH (09:03)
[2020-07-17] MEDS: DOCUSATE SODIUM 100MG CAPSULE PO SCH ×2 (09:03→20:35)
[2020-07-17] MEDS: MULTIVITAMINS/MINERALS THERAP 1 TAB PO SCH (09:03)
[2020-07-17] MEDS: OMEPRAZOLE 20 MG CAP PO SCH (09:03)
[2020-07-17] MEDS: hydrOXYzine 10 MG TAB PO SCH ×2 (09:04→20:35)
[2020-07-17] MEDS: FUROSEMIDE 40 MG TAB PO SCH (09:04)
[2020-07-17 14:00] VITALS: BP 134/64
--- NOTE | 2020-07-17 17:58 | IPNPDOC ---
Date Seen The patient was seen on 07/17/20. Progress Note SUBJECTIVE: No acute events overnight. Did well with PT: encouraging ambulation while pt. hospitalized to prevent deconditioning with use of 2WW but otherwise cleared for discharge home from their end. Echo to be done today, other tests neg. Denies chest pain, shortness of breath, n/v/d. OBJECTIVE: PHYSICAL EXAMINATION: VS: Please see below CONSTITUTIONAL: No acute distress, resting comfortably, AAO x 3 EYES: PERRLA, EOM intact HENT, MOUTH: Normocephalic, atraumatic, moist mucous membranes, NECK: SUPPLE, no JVD, no lymphadenopathy, no carotid bruit CV: Regular rate and rhythm, S1S2 normal, no murmurs/rubs/gallops RESPIRATORY: Clear to auscultation bilaterally, no rales/rhonchi/wheezes GI: obese abd, BS positive in 4 quadrants, soft, nontender, distended, no rebound or guarding, no organomegaly : Deferred MUSCULOSKELETAL: Normal ROM. No cyanosis, clubbing, swelling, joint deformity, extremity edema INTEGUMENTARY: Intact, no rashes, no lesions, no erythema NEUROLOGIC: Cranial Nerves II-XII are intact, no focal deficits. 4/5 RLE strength, 5/5 in all other ext, no sensory or motor deficits PSYCHIATRIC: Mood and affect are normal LABORATORY DATA: Please see below MICROBIOLOGY: F/u UA IMAGING: MRI brain: No acute intracranial findings Carotid US: No carotid arterial stenosis identified however there is a braddisher's note that the proximal right ICA is only partially assessed due to shadowing from calcified atheromatous plaque. CT head: neg CXR: no acute cardiopulm abnormalities ASSESSMENT: 70-year-old male with past medical history of diabetes mellitus, syringomyelia with right-sided deficits, gait instability, LIANNA on nightly CPAP, hypertension, iron deficiency anemia, hyperlipidemia, depression, BPH, low testosterone, GERD, anxiety admitted for syncope, unsteady gait with falls admitted for further workup of syncope, unsteady gait with falls. PLAN: Syncope r/o cardiac vs. neuro (vasovagal, TIA?) vs. other cause. Uncontrolled BP but also worsening anemia. -No new episodes since admission, no events on telemetry -Neuro checks neg -Performed well with PT without issues -MRI, CT head neg -Last echo 2014: EF 50% -F/u new echo -See treatment plan for anemia below -C/w ASA, statin, BP meds Hypertensive urgency likely 2/2 to increased anxiety -BP still not ideal -Compliant with home meds -Increased micardis today to 20 mg PO and switched to daily instead of HS -C/w other home meds, low salt diet -Tele Gait instability, acute on chronic s/p falls -PT: encouraging ambulation while pt. hospitalized to prevent deconditioning with use of 2WW but otherwise cleared for discharge home from their end. GREGORY, chronically worsening -H/H appears lower today at 8.3/27 -Iron low at 23 -No s/s of bleeding but occult blood ordered to r/o GI bleed -If occult neg, likely chronically low and will benefit from iron infusions -States with iron supplement in the past, he has had constipation. Started on ferrous sulfate BID, colace BID, senna, miralax PRN -Daily CBC CKD Stage II-III -Cr wnl this AM -Follows with nephrology -increased micardis so watch for change in Cr -Daily labs DM type II -HbA1c <7 -lipid panel unremarkable -C/w home meds, ISS, AC/HS FS, consistent carb diet Syringomyelia with right-sided deficits, s/p shunt placement -Baseline weakness in Right lower ext today -MRI normal -Follows with Dr. Bryant o/p LIANNA on nightly CPAP -Can use home Cpap HLD -C/w home med Depression/anxiety -C/w home med BPH C/w flomax Low testosterone hx -F/u with PCP GERD -C/w PPI DVT px -Heparin Resolved issues: Left leg weakness DISPOSITION: Admitted as acute inpatient. Plan is hopeful for discharge home when medically improve.d VS, I&O, 24H, Fishbone Vital Signs/I&O Vital Signs Date Time Temp Pulse Resp B/P (MAP) Pulse Ox O2 Delivery O2 Flow Rate FiO2 07/17/20 14:00 97.9 84 17 134/64 (87) 93 Room Air I&O- Last 24 Hours up to 6 AM 07/17/20 06:00 Intake Total 200 ml Output Total 975 ml Balance -775 ml Laboratory Data 24H LABS Laboratory Tests 2 07/16/20 21:43: Bedside Glucose (Misc Panel) 131H 1/13/21 06:12: Nucleated Red Blood Cells % (auto) 0.0, Anion Gap 2L, Glomerular Filtration Rate > 60.0, Estimated Mean Plasma Glucose 140H, Hemoglobin A1c 6.5, Calcium Level 9.2, Total Bilirubin 0.2, Aspartate Amino Transf (AST/SGOT) 41H, Alanine Aminotransferase (ALT/SGPT) 44, Alkaline Phosphatase 81, Total Protein 7.0, Albumin 3.6, Albumin/Globulin Ratio 1.1, Triglycerides Level 65, Total Cholesterol 132, LDL Cholesterol 40, Non-HDL Cholesterol (LDL + VLDL) 53, Total HDL Cholesterol 79, Cholesterol/HDL Ratio 1.670 07/17/20 11:52: Bedside Glucose (Misc Panel) 102 07/17/20 16:39: Bedside Glucose (Misc Panel) 119H CBC/BMP Laboratory Tests 07/17/20 06:12 Current Medications Current Medications Medications (Trade) Dose Ordered Sig/Imelda Route PRN Reason Start Time Stop Time Status Last Admin Dose Admin Allopurinol (Zyloprim) 100 mg DAILY PO 07/17/20 09:00 07/17/20 09:03 Ascorbic Acid (Vitamin C) 1,000 mg DAILY PO 07/17/20 09:00 07/17/20 09:03 Aspirin (Ecotrin) 81 mg QHS PO 07/16/20 21:00 07/16/20 22:00 Dextrose (Dextrose 50%) 25 ml ASDIRECTED PRN IV SEE LABEL COMMENTS 07/16/20 17:15 Docusate Sodium (Colace) 100 mg BID PO 07/17/20 09:00 07/17/20 09:03 Ferrous Sulfate (Ferrous Sulfate) 325 mg BID PO 07/17/20 09:00 07/17/20 09:03 Furosemide (Lasix) 40 mg DAILY PO 07/17/20 09:00 07/17/20 09:04 Glucagon (Glucagon) 1 mg ASDIRECTED PRN SC SEE LABEL COMMENTS 07/16/20 17:15 Glucose (Glucose) 16 GM ASDIRECTED PRN PO SEE LABEL COMMENTS 07/16/20 17:15 Heparin Sodium (Porcine) (Heparin) 5,000 units Q12H SC 07/16/20 21:00 07/17/20 09:02 Home Med (Med Rec Complete!) ASDIRECTED XX 07/16/20 16:30 07/16/20 16:23 DC Hydroxyzine HCl (Atarax) 10 mg BID PO 07/16/20 21:00 07/17/20 09:04 Insulin Detemir (Levemir Insulin) 26 units DAILY SC 07/17/20 09:00 07/17/20 09:02 Insulin Human Lispro (HumaLOG INSULIN) SEE PROTOCOL TABLE AC SC 07/16/20 17:30 Insulin Human Lispro (HumaLOG INSULIN) SEE PROTOCOL TABLE QHS SC 07/16/20 21:00 Multivitamins (Theragram-M) 1 tab DAILY PO 07/17/20 09:00 07/17/20 09:03 Omeprazole (PriLOSEC) 40 mg DAILY PO 07/17/20 09:00 07/17/20 09:03 Primidone (Mysoline) 25 mg BID PO 07/16/20 21:00 07/16/20 20:47 DC Primidone (Mysoline) 25 mg BID PO 07/16/20 21:00 07/17/20 09:03 Rosuvastatin Calcium (Crestor) 20 mg QHS PO 07/16/20 21:00 07/16/20 22:00 Sertraline HCl (Zoloft) 50 mg DAILY PO 07/17/20 09:00 07/17/20 09:03 Tamsulosin HCl (Flomax) 0.4 mg QHS PO 07/16/20 21:00 07/16/20 21:58 Telmisartan (Micardis) 10 mg QHS PO 07/16/20 21:00 07/16/20 22:00 Allergies Coded Allergies: lisinopril (Verified Adverse Reaction, Intermediate, HYPOTENSION, 01/18/20) metformin (Verified Adverse Reaction, Intermediate, LOWERS KIDNEY FUNCTON, 01/18/20) finasteride (Verified Adverse Reaction, Unknown, DIZZINESS, 07/16/20) Yessenia Cerna MD Jul 17, 2020 17:58
[2020-07-17] MEDS ORDERED: MIRALAX *UNIT DOSE* 17GM PACKET PO PRN (18:00)
[2020-07-17] MEDS: ASPIRIN 81 MG ENTERIC TAB PO SCH (20:34)
[2020-07-17] MEDS: ROSUVASTATIN 10 MG TAB (CRESTOR) PO SCH (20:34)
[2020-07-17] MEDS: TAMSULOSIN 0.4 MG CAP PO SCH (20:34)
[2020-07-17] MEDS ORDERED: SENOKOT S TAB PO SCH (21:00)
[2020-07-17 22:00] VITALS: BP 127/77
[2020-07-18 06:00] VITALS: BP 119/60
[2020-07-18 06:25] LABS: HEMATOCRIT 28.7 % (42.0-52.0); HEMOGLOBIN 8.9 g/dl (13.5-17.5); MEAN CORPUSCULAR HEMOGLOBIN 29.6 pg (27.0-33.0); MEAN CORPUSCULAR VOLUME 95.3 fl (80.0-96.0); PLATELET COUNT, AUTOMATED 273 10^3/uL (150-450); RED BLOOD COUNT 3.01 10^6/uL (4.30-6.10); WHITE BLOOD COUNT 5.2 10^3/uL (4.0-10.0)
[2020-07-18 06:49] LABS: ALBUMIN 3.6 GM/DL (3.2-5.2); BILIRUBIN,TOTAL 0.2 MG/DL (0.2-1.0); CALCIUM LEVEL 8.7 MG/DL (8.8-10.2); CREATININE FOR GFR 1.42 MG/DL (0.70-1.30); GLOMERULAR FILTRATION RATE 52.5 (>42); POTASSIUM SERUM 4.6 MEQ/L (3.5-5.1); TOTAL PROTEIN 7.2 GM/DL (6.4-8.2)
[2020-07-18] MEDS: HumaLOG INSULIN (NovoLOG) PER UNIT SC SCH ×2 (07:30→12:00)
[2020-07-18] MEDS: HEPARIN SOD (PORCINE) 5000UNITS/ML 1ML VIAL/SYRINGE SC SCH (08:12)
[2020-07-18] MEDS: hydrOXYzine 10 MG TAB PO SCH (08:13)
[2020-07-18] MEDS: OMEPRAZOLE 20 MG CAP PO SCH (08:13)
[2020-07-18] MEDS: PRIMIDONE 25MG PER 1/2 TABLET PO SCH (08:13)
[2020-07-18] MEDS: LEVEMIR (INSULIN DETEMIR) 1 UNITS/0.01ML SC SCH (08:13)
[2020-07-18] MEDS: SERTRALINE HCL 50 MG TAB PO SCH (08:13)
[2020-07-18] MEDS: DOCUSATE SODIUM 100MG CAPSULE PO SCH (08:13)
[2020-07-18] MEDS: FERROUS SULFATE 325MG TAB PO SCH (08:14)
[2020-07-18] MEDS: MULTIVITAMINS/MINERALS THERAP 1 TAB PO SCH (08:14)
[2020-07-18] MEDS: ASCORBIC ACID 500 MG TAB PO SCH (08:14)
[2020-07-18] MEDS: allopurinoL 100 MG TAB PO SCH (08:14)
[2020-07-18] MEDS: FUROSEMIDE 40 MG TAB PO SCH (08:14)
[2020-07-18] MEDS ORDERED: TELMISARTAN 20 MG TAB PO SCH (09:00)
[2020-07-18] MEDS ORDERED: DOK1CAP7 PO (09:29)
[2020-07-18] MEDS ORDERED: SENN-52 PO (09:29)
[2020-07-18] MEDS ORDERED: FERR325T18 PO (09:29)
[2020-07-18] MEDS ORDERED: LACTULOSE 20 GM/30 ML SYRUP UD PO ONE (12:30)
[2020-07-18 14:00] VITALS: BP 117/54
--- NOTE | 2020-07-18 14:50 | DS.PDOC ---
Discharge Summary General Date of Admission Jul 16, 2020 at 15:56 Date of Discharge 07/18/20 Attending Physician: Yessenia Cerna MD Discharge Summary HISTORY OF PRESENT ILLNESS: Patient is a 70-year-old male with past medical history of diabetes mellitus, syringomyelia with right-sided deficits, gait instability, LIANNA on nightly CPAP, hypertension, iron deficiency anemia, hyperlipidemia, depression, BPH, low testosterone, GERD, anxiety who presented to [facility] emergency room after having multiple falls over the last several days and syncopal episode 07/15/2020. The patient initially fell on 07/13/2020 backwards out of a backless chair at a diner. He had no neurological deficits and was not taken to the hospital at that time. On 07/15/2020 the patient had an episode of loss of consciousness where he states he had no preliminary dizziness or lightheadedness but became weak and blacked out before hitting the floor. He states he must not have been out for a couple of seconds because he rapidly awoke. This was not a witnessed event. He has had this happen in the past but does not know the reason why that happened before. He denies bowel or bladder loss, tremoring, shaking, seizure history. On 07/15/20 going up the stairs after exercising on his exercise bike he states he had increased weakness of the left lower extremity. He states he could not lift his left leg to go up the stairs from the landing. This overtime went away when he woke up this morning he had no left-sided weakness. He has chronic right-sided upper and right lower extremity weakness from his syringomyelia which she follows with neurology outpatient for. He was discussing his issues with family today and was encouraged to come to the ER to get checked out. No chest pain, shortness of breath, nausea, vomiting, fevers, chills, lightheadedness, dizziness, headache, facial drooping being noted. In the emergency room, vital signs showed blood pressure [id number], afebrile, other vital signs were within normal limits and he remained on room air saturating in the mid 90s. Creatinine was elevated at 1.61, baseline creatinine appears to be close to this from earlier June 2020. It appears since January 2020 his creatinine has increased. H&H was low at 8.9/27.8, baseline hemoglobin was around 10 earlier this year. No signs or symptoms of bleeding. CT head negative, chest x-ray negative. Orthostatics negative CK slightly elevated at 733. Trop neg, ECG showed to be SR, ? 1st degree block. Blood sugar within normal limits. Neurological examination showed some mild right lower extremity weakness 4/5 compared to other ext 5/5; however, patient states this is his baseline. Patient was admitted for further workup of syncope, unsteady gait with falls. HOSPITAL COURSE: Patient had echocardiogram done, results are pending. MRI brain, Carotid US neg. He was walked with PT/OT, no s/s of BP or HR fluctuations or unsteadiness from his baseline. No confirmed orthostatic hypotension. No episodes of syncope or lightheadedness this hospital stay. H/H appeared to be gradually dropping since the summer, iron was found to be low and he was started on supplement. Occult blood was neg for bleed. Due to improved state with his chronic issues remaining stable, decision was made to discharge home with close f/u with PCP. We would appreciate his PCP to follow up on echocardiogram results, as it may be several days until the transcribed report is completed. He would benefit from close follow up by PCP for iron deficiency anemia and will likely benefit from outpatient iron infusions. At discharge, patient denied chest pain, shortness of breath, n/v/d. He is also advised to bring discharge instructions to next appointment. PAST MEDICAL HISTORY: DM type II Syringomyelia with right-sided deficits Gait instability LIANNA on nightly CPAP HTN GREGORY HLD Depression BPH Low testosterone hx GERD anxiety PAST SURGICAL HISTORY: Shunt placement 1978 Removal of right scalene muscle FAMILY HISTORY: Father: CAD, at 58 Mother: CHF. in 70's SOCIAL HISTORY: Prior smoker 4PPD for 12 years, quit 1986. Drinks alcohol socially. Denies drug use. Lives with family locally. PCP- Dr. Teodoro Hamilton, Neurologist- Dr. Bryant, Horticultural Specialty Grower- Dr. Rich, House Player- Dr. Gonzalez. Full code ALLERGIES: Please see below. HOME MEDICATIONS: Please see below. PHYSICAL EXAMINATION: VS: Please see below CONSTITUTIONAL: No acute distress, resting comfortably, AAO x 3 EYES: PERRLA, EOM intact HENT, MOUTH: Normocephalic, atraumatic, moist mucous membranes, NECK: SUPPLE, no JVD, no lymphadenopathy, no carotid bruit CV: Regular rate and rhythm, S1S2 normal, no murmurs/rubs/gallops RESPIRATORY: Clear to auscultation bilaterally, no rales/rhonchi/wheezes GI: obese abd, BS positive in 4 quadrants, soft, nontender, distended, no rebound or guarding, no organomegaly : Deferred MUSCULOSKELETAL: Normal ROM. No cyanosis, clubbing, swelling, joint deformity, extremity edema INTEGUMENTARY: Intact, no rashes, no lesions, no erythema NEUROLOGIC: Cranial Nerves II-XII are intact, no focal deficits. 4/5 RLE strength, 5/5 in all other ext, no sensory or motor deficits PSYCHIATRIC: Mood and affect are normal LABORATORY: Please see below IMAGING: MRI brain: No acute intracranial findings Carotid US: No carotid arterial stenosis identified however there is a cow rider's note that the proximal right ICA is only partially assessed due to shadowing from calcified atheromatous plaque. CT head: neg CXR: no acute cardiopulm abnormalities ASSESSMENT: 70-year-old male with past medical history of diabetes mellitus, syringomyelia with right-sided deficits, gait instability, LIANNA on nightly CPAP, hypertension, iron deficiency anemia, hyperlipidemia, depression, BPH, low testosterone, GERD, anxiety admitted for syncope, unsteady gait with falls admitted for further workup of syncope, unsteady gait with falls. PLAN: Syncope likely 2/2 to vasovagal episode -No new episodes since admission, no events on telemetry -Neuro checks neg -Performed well with PT -MRI, CT head neg -Last echo 2014: EF 50% -F/u new echo as outpatient. Will need close follow up with PCP after discharge. Hypertensive urgency likely 2/2 to increased anxiety- resolved. -BP improved -Compliant with home meds -C/w home meds, low salt diet Gait instability, acute on chronic s/p falls -PT: encouraging ambulation while pt. hospitalized to prevent deconditioning with use of 2WW but otherwise cleared for discharge home from their end. GREGORY, chronically worsening -H/H appears better today at 8.9/28 -Occult blood neg -Iron low at 23 -No s/s of bleeding = -States with iron supplement in the past, he has had constipation. Started on ferrous sulfate BID, colace BID, senna. Would likely benefit from outpatient iron infusions, to be discussed with PCP. CKD Stage II-III -Cr slightly elevated at 1.4, waxes and wanes -Follows with nephrology DM type II -HbA1c <7 -lipid panel unremarkable -C/w home meds, consistent carb diet Syringomyelia with right-sided deficits, s/p shunt placement -Baseline weakness in Right lower ext today -MRI normal -Follows with Dr. Bryant o/p LIANNA on nightly CPAP -Stable HLD -C/w home med Depression/anxiety -C/w home med BPH C/w flomax Low testosterone hx -F/u with PCP GERD -C/w PPI Resolved issues: Left leg weakness DISPOSITION: D/c home today to f/u with PCP. TIME SPENT ON DISCHARGE: Greater than 30 minutes. Vital Signs/I&Os Vital Signs Date Time Temp Pulse Resp B/P (MAP) Pulse Ox O2 Delivery O2 Flow Rate FiO2 07/18/20 06:00 97.9 88 18 119/60 (79) 97 Room Air I&O- Last 24 Hours up to 6 AM 07/18/20 06:00 Intake Total 950 ml Output Total 1950 ml Balance -1000 ml Laboratory Data Labs 24H Laboratory Tests 2 07/17/20 16:39: Bedside Glucose (Misc Panel) 119H 07/17/20 19:57: Bedside Glucose (Misc Panel) 124H 07/18/20 05:47: Nucleated Red Blood Cells % (auto) 0.0, Anion Gap 9, Glomerular Filtration Rate 52.5, Calcium Level 8.7L, Total Bilirubin 0.2, Aspartate Amino Transf (AST/SGOT) 46H, Alanine Aminotransferase (ALT/SGPT) 47, Alkaline Phosphatase 81, Total Protein 7.2, Albumin 3.6, Albumin/Globulin Ratio 1.0 07/18/20 13:27: Bedside Glucose (Misc Panel) 86 CBC/BMP Laboratory Tests 07/18/20 05:47 FSBS Laboratory Tests Test 07/17/20 16:39 07/17/20 19:57 07/18/20 13:27 Range/Units Bedside Glucose (Misc Panel) 119 124 86 83-110 MG/DL Microbiology Microbiology 07/18/20 Stool Occult Blood (LINDA) - Final, Complete Discharge Medications Scheduled Allopurinol (Allopurinol) 100 Mg Tab, 100 MG PO DAILY, (Reported) Ascorbic Acid (Vitamin C) 500 Mg Tab, 1,000 MG PO DAILY, (Reported) Aspirin (Aspirin EC) 81 Mg Tab, 81 MG PO QHS, (Reported) Docusate Sodium (Dok) 100 Mg Capsule, 100 MG PO BID Ferrous Sulfate (Ferrous Sulfate) 325 Mg Tablet, 325 MG PO BID Furosemide (Furosemide) 40 Mg Tab, 40 MG PO DAILY, (Reported) Hydroxyzine HCl (Hydroxyzine HCl) 10 Mg Tablet, 10 MG PO BID, (Reported) Insulin Glargine (Lantus) 1 Units/0.01 Ml Susp, 26 UNITS SC DAILY, (Reported) Multivitamins (Thera M Plus Tablet) 1 Tab Tab, 1 TAB PO DAILY, (Reported) Omeprazole (Omeprazole) 20 Mg Tab, 40 MG PO DAILY, (Reported) Primidone (Primidone) 50 Mg Tablet, 25 MG PO BID, (Reported) Rosuvastatin Calcium (Crestor) 20 Mg Tab, 20 MG PO QHS, (Reported) Sennosides/Docusate Sodium (Senna Plus Tablet) 1 Each Tablet, 2 TAB PO QHS Sertraline HCl (Sertraline HCl) 50 Mg Tablet, 50 MG PO DAILY, (Reported) Tamsulosin HCl (Flomax) 0.4 Mg Cap, 0.4 MG PO QHS, (Reported) Telmisartan (Micardis) 20 Mg Tab, 10 MG PO QHS, (Reported) Scheduled PRN Nitroglycerin (Nitrostat) 0.4 Mg Subl, 0.4 MG SL NITRO PRN for ANGINA, (Reported) Allergies Coded Allergies: lisinopril (Verified Adverse Reaction, Intermediate, HYPOTENSION, 01/18/20) metformin (Verified Adverse Reaction, Intermediate, LOWERS KIDNEY FUNCTON, 01/18/20) finasteride (Verified Adverse Reaction, Unknown, DIZZINESS, 07/16/20) Yessenia Cerna MD Jul 18, 2020 14:50
[2020-07-19] MEDS ORDERED: TELMISARTAN 20 MG TAB PO SCH (09:00)
--- NOTE | 2020-07-23 07:36 | ECHO ---
DATE OF PROCEDURE: 07/17/2020 Age: 70 Gender: Male REFERRING PHYSICIAN: Dr. Yessenia Cerna PATIENT LOCATION: Room 4228 REASON FOR STUDY: Syncope. 2D MEASUREMENTS: IVS 1.0 cm LV 5.1 cm LVPW 0.8 cm LA 4.5 cm Aorta 3.0 cm IVC 1.8 cm DOPPLER MEASUREMENT Peak velocity across the aortic valve 1.4 m/s Peak velocity across the LVOT 1.1 m/s Peak gradient across the aortic valve 8 mmHg Mitral E 0.8 Mitral A 0.9 with a ratio of 0.9 2D COMMENTS: 1. Normal left ventricular size, wall thickness, and normal global left ventricular systolic function. The estimated left ventricular systolic ejection fraction is 60% to 65%. 2. Normal left atrium. Normal right atrium and right ventricle. 3. The atrial septum appeared to be normal without evidence of defect or shunt. 4. Normal aortic root. 5. No pericardial effusion seen. 6. Mildly calcified aortic valve with normal leaflet excursion. Normal mitral valve, tricuspid valve, and pulmonic valve. The proximal pulmonary artery branches also appear to be normal in size. 7. The inferior vena cava was normal in size, central venous pressure is most likely normal. Doppler with only trace mitral regurgitation detected. IMPRESSION: 1. Normal global left ventricular systolic function. There are some features of grade 1 left ventricular diastolic dysfunction manifested by abnormal relaxation. 2. Aortic valve sclerosis without stenosis or aortic regurgitation. 3. Trace mitral regurgitation with a mildly enlarged left atrium at 4.5 cm. MTDD
== END 2020-07-18 16:08 | disposition home or self-care (01) | DRG 312 ==
LOC: M ED 13:45 → M ED INP 15:56 → M MSPAV 19:08
PROVIDERS: ADMIT Internal Medicine; ATTEND Internal Medicine
DX: R55 Syncope and collapse (principal); G95.0 Syringomyelia and syringobulbia; I16.0 Hypertensive urgency; N18.30 Chronic kidney disease, stage 3 unspecified; E11.9 Type 2 diabetes mellitus without complications; D50.9 Iron deficiency anemia, unspecified; G47.33 Obstructive sleep apnea (adult) (pediatric); I12.9 Hypertensive chronic kidney disease with stage 1 through stage 4 chronic kidney disease, or unspecified chronic kidney disease; E78.5 Hyperlipidemia, unspecified; F32.9 Major depressive disorder, single episode, unspecified; N40.0 Benign prostatic hyperplasia without lower urinary tract symptoms; K21.9 Gastro-esophageal reflux disease without esophagitis; R26.89 Other abnormalities of gait and mobility; F41.9 Anxiety disorder, unspecified; Z87.891 Personal history of nicotine dependence; Z79.4 Long term (current) use of insulin; Z79.899 Other long term (current) drug therapy; Z79.82 Long term (current) use of aspirin; Z88.8 Allergy status to other drugs, medicaments and biological substances

== ENCOUNTER → 2020-07-24 | Outpatient (CLI) | payer MEDICARE, BC, OTHER ==
[~2020-07-24] MED LIST changes: +DOK1CAP7 PO; +FERR325T18 PO; +PRIM50TA6 PO; +SENN-52 PO; +SERT50TA29 PO
[2020-07-24 10:54] LABS: HEMATOCRIT 26.8 % (42.0-52.0); HEMOGLOBIN 8.6 g/dl (13.5-17.5); MEAN CORPUSCULAR HEMOGLOBIN 30.3 pg (27.0-33.0); MEAN CORPUSCULAR HGB CONC 32.1 g/dl (32.0-36.5); MEAN CORPUSCULAR VOLUME 94.4 fl (80.0-96.0); PLATELET COUNT, AUTOMATED 240 10^3/uL (150-450); RED BLOOD COUNT 2.84 10^6/uL (4.30-6.10); WHITE BLOOD COUNT 4.8 10^3/uL (4.0-10.0)
[2020-07-24 11:35] LABS: ALBUMIN 3.5 GM/DL (3.2-5.2); ALT/SGPT 51 U/L (12-78); BILIRUBIN,TOTAL 0.2 MG/DL (0.2-1.0); BLOOD UREA NITROGEN 59 MG/DL (7-18); CALCIUM LEVEL 9.1 MG/DL (8.8-10.2); CARBON DIOXIDE LEVEL 30 MEQ/L (21-32); CHLORIDE LEVEL 102 MEQ/L (98-107); CREATININE FOR GFR 1.25 MG/DL (0.70-1.30); GLOMERULAR FILTRATION RATE > 60.0 (>42); GLUCOSE, FASTING 145 MG/DL (70-100); IRON (FE) 43 UG/DL (65-175); POTASSIUM SERUM 4.5 MEQ/L (3.5-5.1); SODIUM LEVEL 135 MEQ/L (136-145); TOTAL IRON BINDING CAPACITY 430 UG/DL (250-450)
[2020-07-24 11:52] LABS: HEMOGLOBIN A1c 6.3 %
== END ==
LOC: M LAB 10:10
PROVIDERS: ATTEND Family Medicine
DX: D64.9 Anemia, unspecified (principal); E03.9 Hypothyroidism, unspecified; R53.83 Other fatigue; Z79.899 Other long term (current) drug therapy

== ENCOUNTER → 2020-08-28 | Outpatient (REF) | payer MEDICARE, BC, OTHER ==
[2020-08-28 19:09] LABS: PERCENT SATURATION 16.5 % (19.7-50.0)
== END ==
LOC: M LAB REF 17:26
PROVIDERS: ATTEND Nurse Practitioner Family
DX: D50.9 Iron deficiency anemia, unspecified (principal)

== ENCOUNTER 2020-09-14 06:29 | Inpatient (IN) | payer MEDICARE, BC, OTHER ==
[~2020-09-14] VITALS: Ht 172.7 cm; Wt 106.9 kg
[2020-09-14 07:26] LABS: HEMATOCRIT 27.1 % (42.0-52.0); HEMOGLOBIN 8.8 g/dl (13.5-17.5); MEAN CORPUSCULAR HEMOGLOBIN 31.4 pg (27.0-33.0); MEAN CORPUSCULAR HGB CONC 32.5 g/dl (32.0-36.5); MEAN CORPUSCULAR VOLUME 96.8 fl (80.0-96.0); PLATELET COUNT, AUTOMATED 141 10^3/uL (150-450); WHITE BLOOD COUNT 7.4 10^3/uL (4.0-10.0)
[2020-09-14] MEDS ORDERED: LEVEMIR (INSULIN DETEMIR) 1 UNITS/0.01ML SC SCH (09:00)
[2020-09-14 10:00] LABS: ALBUMIN 3.5 GM/DL (3.2-5.2); ALT/SGPT 60 U/L (12-78); BILIRUBIN,DIRECT < 0.1 MG/DL (0.0-0.2); BILIRUBIN,TOTAL 0.1 MG/DL (0.2-1.0); TOTAL PROTEIN 6.9 GM/DL (6.4-8.2)
[2020-09-14 10:08] LABS: RSV AMPLIFICATION NEGATIVE (NEGATIVE)
[2020-09-14] MEDS ORDERED: FINA5TAB2 PO (10:11)
[2020-09-14] MEDS ORDERED: DOCU100C16 PO (10:25)
[2020-09-14] MEDS ORDERED: SENN-52 PO (10:25)
[2020-09-14] MEDS ORDERED: FERR1TAB8 PO (10:25)
[2020-09-14] MEDS ORDERED: LEVE1INJ5 SC (10:25)
--- NOTE | 2020-09-14 10:50 | REP ---
INDICATION: fall COMPARISON: 07/16/2020 TECHNIQUE: Axial noncontrast images from the skull base to the thoracic inlet with coronal reformations. This CT examination was performed using the following dose reduction techniques: Automated exposure control, adjustment of mA and/or kv according to the patient's size, and use of iterative reconstruction technique. FINDINGS: Age-related atrophy and microvascular ischemic changes are appreciated. The ventricles and sulci are symmetric. Mon-white differentiation is maintained. There is no evidence for acute intracranial hemorrhage, mass/mass effect, pathology or infarction. No extra-axial fluid collection. Calvarium is intact. Paranasal sinuses and mastoid air cells are clear. IMPRESSION: Age related atrophy and microvascular ischemic changes. No acute intracranial hemorrhage, infarction, or mass/mass effect. <Electronically signed by Ralph Kc > 09/14/20 [id number]
[2020-09-14] MEDS ORDERED: GLUCOSE 4GM CHEW TABLET PO PRN (11:00)
[2020-09-14] MEDS ORDERED: DEXTROSE 50% 50 ML SYRINGE IV PRN (11:00)
[2020-09-14] MEDS ORDERED: GLUCAGON INJ 1MG VIAL SC PRN (11:00)
[2020-09-14] MEDS ORDERED: SENOKOT S TAB PO PRN (11:35)
[2020-09-14] MEDS ORDERED: DOCUSATE SODIUM 100MG CAPSULE PO PRN (11:35)
[2020-09-14] MEDS ORDERED: NITROGLYCERIN 0.4 MG SUBL TABLET SL PRN (11:35)
--- NOTE | 2020-09-14 11:43 | HPEPDOC ---
General Date of Admission Sep 14, 2020 at 10:33 Date of Service: Sep 14, 2020 Chief Complaint The patient is a 70-year-old male admitted with a reason for visit of fall due to gait instability. Source: Patient History of Present Illness Mr. Vilchis is a 70-year-old male with diabetes mellitus type 2, syringomyelia with right-sided deficits, and history of low testosterone who presents with increasing fatigue and right-sided weakness. He was recently admitted on 07/16/2020. He has been having multiple falls prior to admission and then syncope. He was discharged on 06/17/2021 after he passed physical therapy. Since then, he still has his right leg weakness. Today, he was getting out of bed to go to the bathroom. His feet got tangled in the bed sheets on the floor. He then fell to his knees. He says that this has happened multiple times in the past. When he normally does is called to the stairs and uses a railing to stand up. He does this to avoid waking his . He made it to the stairs, but he was not able to stand up. They called EMS to taken to the hospital. Patient reports that he does have some lightheadedness when he stands too quickly. Otherwise denies any fever or chills, chest pain, or abdominal pain. He has dyspnea on exertion. He also notes he has increasing fatigue. He describes it as requiring 12-14 hours of sleep every day. Patient worked with physical therapy in the ED, and he did not clear physical therapy. Patient will be admitted for gait instability. Home Medications Scheduled Allopurinol (Allopurinol) 100 Mg Tab, 100 MG PO DAILY, (Reported) Ascorbic Acid (Vitamin C) 500 Mg Tab, 1,000 MG PO DAILY, (Reported) Aspirin (Aspirin EC) 81 Mg Tab, 81 MG PO QHS, (Reported) Ferrous Sulfate (Ferrous Sulfate) 325 Mg Tablet, 325 MG PO BID, (Reported) Furosemide (Furosemide) 40 Mg Tab, 40 MG PO DAILY, (Reported) Hydroxyzine HCl (Hydroxyzine HCl) 10 Mg Tablet, 10 MG PO BID, (Reported) Insulin Detemir (Levemir Flextouch) 100 Unit/1 Ml Insuln.pen, 26 UNIT SC DAILY, (Reported) Multivitamins (Thera M Plus Tablet) 1 Tab Tab, 1 TAB PO DAILY, (Reported) Omeprazole (Omeprazole) 20 Mg Tab, 40 MG PO DAILY, (Reported) Primidone (Primidone) 50 Mg Tablet, 25 MG PO BID, (Reported) Rosuvastatin Calcium (Crestor) 20 Mg Tab, 20 MG PO QHS, (Reported) Sennosides/Docusate Sodium (Senna Plus Tablet) 1 Each Tablet, 2 TAB PO QHS, (Reported) Sertraline HCl (Sertraline HCl) 50 Mg Tablet, 50 MG PO DAILY, (Reported) Tamsulosin HCl (Flomax) 0.4 Mg Cap, 0.4 MG PO QHS, (Reported) Telmisartan (Micardis) 20 Mg Tab, 10 MG PO QHS, (Reported) Scheduled PRN Docusate Sodium (Docusate Sodium) 100 Mg Capsule, 100 MG PO BID PRN for CONSTIPATION, (Reported) Nitroglycerin (Nitrostat) 0.4 Mg Subl, 0.4 MG SL NITRO PRN for ANGINA, (Reported) Allergies Coded Allergies: lisinopril (Verified Adverse Reaction, Intermediate, HYPOTENSION, 01/18/20) metformin (Verified Adverse Reaction, Intermediate, LOWERS KIDNEY FUNCTON, 01/18/20) finasteride (Verified Adverse Reaction, Unknown, DIZZINESS, 07/16/20) Past Medical History Medical History 1. DM type II 2. Syringomyelia with right-sided deficits 3. Gait instability 4. LIANNA on nightly CPAP 5. HTN 6. Iron deficiency anemia 7. HLD 8. Depression 9. BPH 10. Low testosterone hx 11. GERD 12. Anxiety Surgical History 1. Shunt placement 1978 2. Removal of right scalene muscle Family History Father: at 58 years old. History of CAD. Mother: in her 70s. History of CHF. Social History * Smoker: former Smoker Alcohol: occationally (socially) Drugs: denies A-FIB/CHADSVASC A-FIB History Current/History of A-Fib/PAF?: No Review of Systems Constitutional: Reports: Fatigue, Lethargy; Denies: Chills, Fever Eyes: Denies: Vision change ENT: Denies: Sore Throat Skin: Reports: Rash (right foot lesion on the dorsal surface. Non-papular lesion. ) Pulmonary: Reports: Dyspnea (on exertion) Cardiovascular: Denies: Chest Pain Gastrointestinal: Denies: Abdominal Pain Genitourinary: Denies: Dysuria Hematologic: Reports: Other Hematologic (some bleeding on right elbow from crawling on ground); Denies: Bruising Neurological: Reports: Numbness (right foot) Psych: Denies: Anxiety, Depression Physical Examination General Exam: Positive: Alert, Cooperative Eye Exam: Positive: EOMI, Other Eye Symptoms (sclera looks omalley) ENT Exam: Positive: Atraumatic Neck Exam: Positive: Supple Chest Exam: Positive: Clear to auscultation; Negative: Rales, Rhonchi Heart Exam: Positive: Rate Normal, Regular Rhythm Abdomen Exam: Positive: Normal bowel sounds, Soft, Other (obese); Negative: Tenderness Extremity Exam: Positive: Edema (bilateral pitting) Neuro Exam: Positive: Normal Speech, Cranial Nerves 3-12 NL; Negative: Strength at 5/5 X4 ext (mildly weaker in the right leg) Psych Exam: Positive: Mental status NL, Mood NL Vital Signs Vital Signs Date Time Temp Pulse Resp B/P (MAP) Pulse Ox O2 Delivery O2 Flow Rate FiO2 09/14/20 08:12 Room Air 09/14/20 07:44 83 157/67 (97) 95 09/14/20 07:44 96.7 Laboratory Data Labs 24H Laboratory Tests 2 09/14/20 07:12: Nucleated Red Blood Cells % (auto) 0.0 09/14/20 09:18: POC Glucose (Misc Panel) 115H, POC Sodium (Misc Panel) 137, POC Potassium (Misc Panel) 4.7, POC Chloride (Misc Panel) 98, POC Total CO2 (Misc Panel) 33.0H, POC Blood Urea Nitrogen (Misc Panel 45H, POC Ionized Calcium (Misc Panel) 5.1, POC Creatinine (Misc Panel) 1.1, POC Hematocrit (Misc Panel) 28.0L, Total Bilirubin 0.1L, Direct Bilirubin < 0.1, Aspartate Amino Transf (AST/SGOT) 54H, Alanine Aminotransferase (ALT/SGPT) 60, Alkaline Phosphatase 117, Total Protein 6.9, Albumin 3.5, Albumin/Globulin Ratio 1.0, Coronavirus (COVID-19)(PCR) NEGATIVE, Influenza Type A (RT-PCR) NEGATIVE, Influenza Type B (RT-PCR) NEGATIVE, Respira tory Syncytial Virus (PCR) NEGATIVE CBC/BMP Laboratory Tests 09/14/20 07:12 Assessment/Plan Mr. Vilchis is a 70-year-old male with diabetes mellitus type 2, syringomyelia with right-sided deficits, and history of low testosterone who presents with increasing fatigue and right-sided weakness. He did not pass physical therapy in the ED. We'll have physical therapy work with the patient. He may need rehabilitation. Otherwise, we'll work a fatigue with testosterone level and levothyroxine. Hemoglobin has remained stable at this time, but MCV is elevated. We'll also check a vitamin B12 level. Plan / VTE VTE Prophylaxis Ordered?: Yes Plan Plan 1. Gait instability He has progressive weakness in the right leg for more than a year He's been having frequent falls This time he was not able to pick himself up off the ground Did not pass physical therapy the ED Physical therapy ordered. Patient may need rehabilitation. We'll also check orthostatic vitals 2. Fatigue He has history of low testosterone He also has iron deficiency anemia. In July 2020, iron was 23 and ferritin 17 In addition he has macrocytic anemia We'll check a vitamin B12 level, testosterone level, and thyroid studies 3. Diabetes mellitus type 2 Continue basal insulin Carbohydrate consistent diet and sliding scale insulin 4. Gout Continue allopurinol 5. Chronic heart failure with preserved ejection fraction Echocardiogram in July 2020 demonstrates an EF of 60-65% Continue Lasix 6. Hypertension Continue telmisartan Also on tamsulosin 7. BPH Continue tamsulosin 8. Anxiety and depression Continue sertraline and hydroxyzine 9. DVT prophylaxis Lovenox DARÍO GIVENS DO Sep 14, 2020 11:43
[2020-09-14 12:20] VITALS: BP 160/69
[2020-09-14 14:00] VITALS: BP 156/69
[2020-09-14] MEDS: HumaLOG INSULIN (NovoLOG) PER UNIT SC SCH ×3 (14:31→20:49)
[2020-09-14] MEDS: ASCORBIC ACID 500 MG TAB PO SCH (14:32)
[2020-09-14] MEDS: FERROUS SULFATE 325MG TAB PO SCH ×2 (14:32→20:57)
[2020-09-14] MEDS: FUROSEMIDE 40 MG TAB PO SCH (14:32)
[2020-09-14] MEDS: SERTRALINE HCL 50 MG TAB PO SCH (14:32)
[2020-09-14] MEDS: hydrOXYzine 10 MG TAB PO SCH ×2 (14:33→20:57)
[2020-09-14] MEDS: MULTIVITAMINS/MINERALS THERAP 1 TAB PO SCH (14:33)
[2020-09-14] MEDS: PRIMIDONE 25MG PER 1/2 TABLET PO SCH ×2 (14:33→20:57)
[2020-09-14] MEDS: allopurinoL 100 MG TAB PO SCH (14:33)
[2020-09-14] MEDS: OMEPRAZOLE 20 MG CAP PO SCH (14:33)
[2020-09-14] MEDS ORDERED: PILL CUTTER 1 EACH XX PRN (20:45)
[2020-09-14 20:48] VITALS: BP 160/86
[2020-09-14] MEDS: ASPIRIN 81MG ENTERIC TABLET PO SCH (20:57)
[2020-09-14] MEDS: ROSUVASTATIN 10 MG TAB (CRESTOR) PO SCH (20:58)
[2020-09-14] MEDS: TAMSULOSIN 0.4 MG CAP PO SCH (20:58)
[2020-09-14] MEDS: TELMISARTAN 20 MG TAB PO SCH (20:58)
[2020-09-15] VITALS (7 sets, daily range): BP systolic 110–168; BP diastolic 56–110
[2020-09-15 06:46] LABS: HEMATOCRIT 27.7 % (42.0-52.0); HEMOGLOBIN 8.9 g/dl (13.5-17.5); MEAN CORPUSCULAR HEMOGLOBIN 31.4 pg (27.0-33.0); MEAN CORPUSCULAR HGB CONC 32.1 g/dl (32.0-36.5); MEAN CORPUSCULAR VOLUME 97.9 fl (80.0-96.0); PLATELET COUNT, AUTOMATED 144 10^3/uL (150-450); RED BLOOD COUNT 2.83 10^6/uL (4.30-6.10); WHITE BLOOD COUNT 5.2 10^3/uL (4.0-10.0)
[2020-09-15 07:23] LABS: BLOOD UREA NITROGEN 32 MG/DL (7-18); CALCIUM LEVEL 9.4 MG/DL (8.8-10.2); CARBON DIOXIDE LEVEL 33 MEQ/L (21-32); CHLORIDE LEVEL 103 MEQ/L (98-107); CREATININE FOR GFR 1.01 MG/DL (0.70-1.30); FREE THYROXINE INDEX 2.5 % (1.4-3.8); GLOMERULAR FILTRATION RATE > 60.0 (>42); GLUCOSE, FASTING 51 MG/DL (70-100); MAGNESIUM LEVEL 2.5 MG/DL (1.8-2.4); POTASSIUM SERUM 4.8 MEQ/L (3.5-5.1); SODIUM LEVEL 138 MEQ/L (136-145); T UPTAKE 33 % (33-40); THYROXINE (T4) 7.7 UG/DL (4.5-12.0)
[2020-09-15] MEDS: HumaLOG INSULIN (NovoLOG) PER UNIT SC SCH ×4 (07:30→20:59)
[2020-09-15] MEDS: LEVEMIR (INSULIN DETEMIR) 1 UNITS/0.01ML SC SCH (09:00)
[2020-09-15] MEDS: FERROUS SULFATE 325MG TAB PO SCH ×2 (09:29→19:49)
[2020-09-15] MEDS: PRIMIDONE 25MG PER 1/2 TABLET PO SCH ×2 (09:29→19:49)
[2020-09-15] MEDS: MULTIVITAMINS/MINERALS THERAP 1 TAB PO SCH (09:29)
[2020-09-15] MEDS: hydrOXYzine 10 MG TAB PO SCH ×2 (09:29→19:49)
[2020-09-15] MEDS: SERTRALINE HCL 50 MG TAB PO SCH (09:29)
[2020-09-15] MEDS: ENOXAPARIN 40MG/0.4ML SYRINGE (J1650 PER 10MG) SC SCH (09:29)
[2020-09-15] MEDS: OMEPRAZOLE 20 MG CAP PO SCH (09:29)
[2020-09-15] MEDS: allopurinoL 100 MG TAB PO SCH (09:29)
[2020-09-15] MEDS: ASCORBIC ACID 500 MG TAB PO SCH (09:30)
[2020-09-15] MEDS: FUROSEMIDE 40 MG TAB PO SCH (09:30)
--- NOTE | 2020-09-15 14:11 | REPVR ---
PROCEDURE INFORMATION: Exam: MR Thoracic Spine Without and With Contrast Exam date and time: 09/15/2020 1:15 PM Age: 70 years old Clinical indication: Condition or disease; Other: Syringomyelimia; Additional info: Right leg weakness, right sided paresthesia, syringomyelimia TECHNIQUE: Imaging protocol: Multiplanar magnetic resonance images of the thoracic spine without and with contrast. Contrast material: PROHANCE; Contrast volume: 20 ml; Contrast route: INTRAVENOUS (IV); COMPARISON: No relevant prior studies available. FINDINGS: Exam is severely motion degraded. Within that limitation, there is an exaggerated thoracic kyphosis without spondylolisthesis or compression fracture. Mild degenerative disc disease. Abnormal signal intensity throughout the imaged inferior cervical spinal cord extending throughout the thoracic spinal cord to the T9 level, with dilation of the central spinal canal and likely cord thinning and potential myelomalacia particularly superiorly, although assessment is difficult given constraints of motion artifact. There is no severe thoracic spinal canal stenosis, assessment for more mild degenerative change is limited by motion. No convincing abnormal contrast enhancement. IMPRESSION: 1. Within constraints of severe motion artifact, there is an extensive spinal cord syrinx extending from the imaged cervical spinal cord inferiorly to the T9 level with cord thinning and likely myelomalacia superiorly. 2. No convincing severe thoracic spinal canal stenosis. Electronically signed by: Tin Saxena On 09/15/2020 14:10:42 PM
--- NOTE | 2020-09-15 14:23 | IPNPDOC ---
Subjective Date Seen The patient was seen on 09/15/20. Subjective Chief Complaint/HPI Mr. Vilchis is a 70-year-old male with diabetes mellitus type 2, syringomyelia with right-sided deficits, and history of low testosterone who presents with increasing fatigue and right-sided weakness. Last evening, his blood glucose was low at 79. This morning, his blood glucose was 51. He tells me that he does measure his blood glucose, and in the morning, they are sometimes on the lower side. Otherwise denies chest pain or dyspnea. Objective Physical Examination General Exam: Positive: Alert, Cooperative Eye Exam: Positive: EOMI, Other Eye Symptoms (sclera looks omalley) ENT Exam: Positive: Atraumatic Neck Exam: Positive: Supple Chest Exam: Positive: Clear to auscultation; Negative: Rales, Rhonchi Heart Exam: Positive: Rate Normal, Regular Rhythm Abdomen Exam: Positive: Normal bowel sounds, Soft, Other (obese); Negative: Tenderness Extremity Exam: Positive: Edema (bilateral pitting) Neuro Exam: Positive: Normal Speech, Cranial Nerves 3-12 NL; Negative: Strength at 5/5 X4 ext (mildly weaker in the right leg) Psych Exam: Positive: Mental status NL, Mood NL Assessment /Plan Assessment Mr. Vilchis is a 70-year-old male with diabetes mellitus type 2, syringomyelia with right-sided deficits, and history of low testosterone who presents with increasing fatigue and right-sided weakness. He did not pass physical therapy in the ED. We'll have physical therapy work with the patient. He may need rehabilitation. Otherwise, we'll work up fatigue with testosterone level and thyroid studies. Thyroid studies are unremarkable. Hemoglobin has remained s table at this time, but MCV is elevated. We'll also check a vitamin B12 level. Pending testosterone level and vitamine B12. Otherwise, will evaluate the extent of his syringomyelia with MRI. Plan/VTE VTE Prophylaxis Ordered?: Yes Plan 1. Gait instability He has progressive weakness in the right leg for more than a year He's been having frequent falls This time he was not able to pick himself up off the ground Did not pass physical therapy the ED Physical therapy ordered. Patient may need rehabilitation. We'll also check orthostatic vitals 2. Fatigue He has history of low testosterone He also has iron deficiency anemia. In July 2020, iron was 23 and ferritin 17 In addition he has macrocytic anemia We'll check a vitamin B12 level and testosterone level pending results -Thyroid studies within normal limits 3. Diabetes mellitus type 2 -Was hypoglycemic 79 evening of 09/14/2020 at 51 on morning of 09/15/2020 -May have contributed to his morning weakness Reduce basal insulin from 26 units to 10 units Carbohydrate consistent diet and sliding scale insulin 4. Gout Continue allopurinol 5. Chronic heart failure with preserved ejection fraction Echocardiogram in July 2020 demonstrates an EF of 60-65% Continue Lasix 6. Hypertension Continue telmisartan Also on tamsulosin 7. BPH Continue tamsulosin 8. Anxiety and depression Continue sertraline and hydroxyzine 9. DVT prophylaxis Lovenox Disposition: Pending MRI, patient may need rehab. VS, I&O, 24H, Mónica Vital Signs/I&O Vital Signs Date Time Temp Pulse Resp B/P (MAP) Pulse Ox O2 Delivery O2 Flow Rate FiO2 09/15/20 06:00 97.4 66 19 168/83 (111) 99 NIPPV (BIPAP/CPAP) I&O- Last 24 Hours up to 6 AM 09/15/20 06:00 Intake Total 960 ml Output Total 0 ml Balance 960 ml Laboratory Data 24H LABS Laboratory Tests 2 09/14/20 16:24: Bedside Glucose (Misc Panel) 134H 09/14/20 20:39: Bedside Glucose (Misc Panel) 79L 09/15/20 06:02: Reticulocyte # (auto) 54.6, Nucleated Red Blood Cells % (auto) 0.0, Percent Reticulocyte Count 1.9H, Reticulocyte Hemoglobin Equivalent 36.6H, Anion Gap 2L, Glomerular Filtration Rate > 60.0, Calcium Level 9.4, Magnesium Level 2.5H, Thyroid Stimulating Hormone (TSH) 1.430, Free Thyroxine Index 2.5, Thyroxine (T4) 7.7, Triiodothyronine (T3) Uptake 33 09/15/20 13:38: Bedside Glucose (Misc Panel) 103 CBC/BMP Laboratory Tests 09/15/20 06:02 DARÍO GIVENS 14, 2021 14:23
--- NOTE | 2020-09-15 14:24 | REPVR ---
PROCEDURE INFORMATION: Exam: MR Lumbar Spine Without and With Contrast. Exam date and time: 09/15/2020 1:15 PM Age: 70 years old Clinical indication: Condition or disease; Other: Syringomyelimia; Additional info: Right leg weakness, right sided paresthesia, syringomyelimia TECHNIQUE: Imaging protocol: Multiplanar magnetic resonance images of the lumbar spine without and with contrast. Contrast material: PROHANCE; Contrast volume: 20 ml; Contrast route: INTRAVENOUS (IV); COMPARISON: No relevant prior studies available. FINDINGS: Exam is mildly degraded by patient motion artifact. Normal lumbar lordosis. No spondylolisthesis nor marrow edema to suggest acute osseous injury. Degenerative disc disease most pronounced at L4-S1 with disc height loss and mixed predominantly type 3 reactive endplate signal changes present. A round T1 and T2 hypointense lesion within the L3 vertebral body with internal contrast enhancement is favored to represent an incidental vertebral body hemangioma. There is otherwise diffuse fatty replacement throughout the marrow. The distal spinal cord appears normal. At L1-L2, there is no significant spinal canal stenosis. Minimal circumferential disc bulge and mild inferior neural foraminal narrowing bilaterally. Mild bilateral facet arthrosis. At L2-L3, there is mild circumferential disc bulge. Minimal spinal canal narrowing. Mild bilateral inferior neural foraminal narrowing. Mild bilateral facet arthrosis. At L3-L4, there is no significant spinal canal stenosis or neural foraminal narrowing. Mild bilateral facet arthrosis. At L4-L5, circumferential disc bulge is present, with mild spinal canal narrowing. Moderate right and mild left neural foraminal narrowing. Moderate right and mild left facet arthrosis. At L5-S1, circumferential disc bulge with discogenic osteophytes and moderate bilateral facet arthrosis contributes to minimal spinal canal narrowing however there is severe bilateral neural foraminal narrowing. Within constraints of motion artifact there is no convincing abnormal intraspinal contrast enhancement. IMPRESSION: Multilevel lumbar spine degenerative change, although without moderate or severe spinal canal stenosis. Severe bilateral neural foraminal narrowing at L5-S1. Electronically signed by: Tin Saxena On 09/15/2020 14:24:34 PM
--- NOTE | 2020-09-15 14:32 | REPVR ---
PROCEDURE INFORMATION: Exam: MR Cervical Spine Without and With Contrast Exam date and time: 09/15/2020 1:15 PM Age: 70 years old Clinical indication: Condition or disease; Other: Syringomyelimia; Prior surgery; Surgery date: 6+ months; Surgery type: Shunt placed in 80's; Additional info: Right leg weakness, right sided paresthesia, syringomyelimia TECHNIQUE: Imaging protocol: Multiplanar magnetic resonance images of the cervical spine without and with contrast. Contrast material: PROHANCE; Contrast volume: 20 ml; Contrast route: INTRAVENOUS (IV); COMPARISON: MRI-Spine,Cervical without con 08/06/2016 1:40 PM FINDINGS: Exam is severely degraded by patient motion artifact. There is straightening of the normal cervical lordosis without spondylolisthesis nor marrow edema to suggest acute osseous injury. Mild degenerative disc disease. Diffuse fatty marrow replacement. Posterior decompression changes from C4-C5 through C6-C7. The large spinal cord syrinx extending from C1 inferiorly into the thoracic spinal cord below the field of imaging is again noted with diameter up to 0.8 cm, overall similar in appearance to the MRI from 08/06/2016 allowing for constraints of severe image artifact. There is cord parenchymal thinning/atrophy throughout. There is no severe spinal canal stenosis, with degenerative change perhaps most pronounced at C3-C4 with mild spinal canal narrowing. There are multiple levels of neural foraminal narrowing, likely severe on the right at C3-C4 and C4-C5 although not well assessed given constraints of motion. Unchanged cerebellar tonsillar ectopia protruding approximately 0.8 cm below the foramen of magnum with associated crowding at the craniocervical junction. IMPRESSION: 1. Unchanged cerebellar tonsillar ectopia/Chiari 1 malformation with associated crowding at the craniocervical junction. 2. Allowing for significant patient motion artifact, there is no significant change in the longitudinally extensive spinal cord syrinx extending from C1 inferiorly into the thoracic spinal cord below the field of imaging with associated parenchymal volume loss. Electronically signed by: Tin Saxena On 09/15/2020 14:32:36 PM
[2020-09-15] MEDS: ROSUVASTATIN 10 MG TAB (CRESTOR) PO SCH (19:49)
[2020-09-15] MEDS: ASPIRIN 81MG ENTERIC TABLET PO SCH (19:49)
[2020-09-15] MEDS: TAMSULOSIN 0.4 MG CAP PO SCH (19:50)
[2020-09-15] MEDS: TELMISARTAN 20 MG TAB PO SCH (19:50)
[2020-09-16 06:00] VITALS: BP 123/70
[2020-09-16 07:08] LABS: HEMATOCRIT 26.9 % (42.0-52.0); HEMOGLOBIN 8.6 g/dl (13.5-17.5); MEAN CORPUSCULAR HEMOGLOBIN 31.5 pg (27.0-33.0); MEAN CORPUSCULAR VOLUME 98.5 fl (80.0-96.0); PLATELET COUNT, AUTOMATED 153 10^3/uL (150-450); RED BLOOD COUNT 2.73 10^6/uL (4.30-6.10)
[2020-09-16 07:30] LABS: BLOOD UREA NITROGEN 30 MG/DL (7-18); CALCIUM LEVEL 8.7 MG/DL (8.8-10.2); CARBON DIOXIDE LEVEL 34 MEQ/L (21-32); CHLORIDE LEVEL 104 MEQ/L (98-107); GLOMERULAR FILTRATION RATE > 60.0 (>42); GLUCOSE, FASTING 97 MG/DL (70-100); MAGNESIUM LEVEL 2.4 MG/DL (1.8-2.4); POTASSIUM SERUM 4.5 MEQ/L (3.5-5.1); SODIUM LEVEL 141 MEQ/L (136-145)
[2020-09-16] MEDS: HumaLOG INSULIN (NovoLOG) PER UNIT SC SCH ×3 (07:30→16:55)
[2020-09-16] MEDS: LEVEMIR (INSULIN DETEMIR) 1 UNITS/0.01ML SC SCH (08:33)
[2020-09-16] MEDS: FERROUS SULFATE 325MG TAB PO SCH (08:50)
[2020-09-16] MEDS: hydrOXYzine 10 MG TAB PO SCH (08:50)
[2020-09-16] MEDS: MULTIVITAMINS/MINERALS THERAP 1 TAB PO SCH (08:50)
[2020-09-16] MEDS: allopurinoL 100 MG TAB PO SCH (08:50)
[2020-09-16] MEDS: SERTRALINE HCL 50 MG TAB PO SCH (08:51)
[2020-09-16] MEDS: ENOXAPARIN 40MG/0.4ML SYRINGE (J1650 PER 10MG) SC SCH (08:51)
[2020-09-16] MEDS: FUROSEMIDE 40 MG TAB PO SCH (08:51)
[2020-09-16] MEDS: ASCORBIC ACID 500 MG TAB PO SCH (08:51)
[2020-09-16] MEDS: OMEPRAZOLE 20 MG CAP PO SCH (08:51)
[2020-09-16] MEDS: PRIMIDONE 25MG PER 1/2 TABLET PO SCH (08:51)
[2020-09-16 10:40] LABS: VITAMIN B12 LEVEL 1496 PG/ML (247-911)
--- NOTE | 2020-09-16 11:10 | REPVR ---
PROCEDURE INFORMATION: Exam: MR Head Without Contrast Exam date and time: 09/16/2020 11:03 AM Age: 70 years old Clinical indication: Other: Right sided weakness, stroke? ; Prior surgery; Surgery date: 6+ months; Surgery type: Lp shunt TECHNIQUE: Imaging protocol: MR of the head without contrast. COMPARISON: MRI-Brain without Contrast 07/16/2020 8:11 PM FINDINGS: Limitations: The study is moderately limited due to patient motion artifact. Brain: A Chiari 1 malformation is again noted. There is crowding of the cervicomedullary junction. No restricted diffusion is seen to suggest acute infarction. There is no acute intracranial hemorrhage, cerebral edema, or midline shift. Age-related cerebral and cerebellar substance loss is present. Mild increased T2 and FLAIR signal within the periventricular white matter and miguel is present. This is nonspecific but likely related to chronic microangiopathic ischemic change. Cerebral ventricles: Mild ex vacuo dilation of the lateral and third ventricles is noted. Bones/joints: Unremarkable. Paranasal sinuses: Normal as visualized. No acute sinusitis. Mastoid air cells: Normal as visualized. No mastoid effusion. Orbital cavity: The patient is likely status post bilateral cataract surgery. Soft tissues: Unremarkable. IMPRESSION: 1. Moderately limited exam due to motion artifact 2. No acute intracranial abnormality. 3. Chronic findings as discussed above. Electronically signed by: Gavino Puckett On 09/16/2020 11:10:29 AM
[2020-09-16 14:00] VITALS: BP 155/76
[2020-09-16] MEDS ORDERED: INSUHUMDS SC ×2 (14:37)
--- NOTE | 2020-09-16 22:14 | DS.PDOC ---
Discharge Summary General Date of Admission Sep 14, 2020 at 10:33 Date of Discharge Sep 16, 2020 Attending Physician: DARÍO GIVENS DO Discharge Summary PROCEDURES PERFORMED DURING STAY: None ADMITTING DIAGNOSES: 1. 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 Gait instability 3. Fatigue 4. Diabetes mellitus type 2 5. Gout 6. Chronic HFpEF 7. Hypertension 8. BPH 9. Anxiety and depression DISCHARGE DIAGNOSES: 1. 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 Gait instability 3. Fatigue 4. Diabetes mellitus type 2 5. Gout 6. Chronic HFpEF 7. Hypertension 8. BPH 9. Anxiety and depression COMPLICATIONS/CHIEF COMPLAINT: Fall Gait Instability. HISTORY OF PRESENT ILLNESS: Mr. Vilchis is a 70-year-old male with diabetes mellitus type 2, syringomyelia with right-sided deficits, and history of low testosterone who presents with increasing fatigue and right-sided weakness. He was recently admitted on 07/16/2020. He has been having multiple falls prior to admission and then syncope. He was discharged on 06/17/2021 after he passed physical therapy. Since then, he still has his right leg weakness. Today, he was getting out of bed to go to the bathroom. His feet got tangled in the bed sheets on the floor. He then fell to his knees. He says that this has happened multiple times in the past. When he normally does is called to the stairs and uses a railing to stand up. He does this to avoid waking his . He made it to the stairs, but he was not able to stand up. They called EMS to taken to the hospital. Patient reports that he does have some lightheadedness when he stands too quickly. Otherwise denies any fever or chills, chest pain, or abdominal pain. He has dyspnea on exertion. He also notes he has increasing fatigue. He describes it as requiring 12-14 hours of sleep every day. Patient worked with physical therapy in the ED, and he did not clear physical therapy. Patient will be admitted for gait instability. HOSPITAL COURSE: Patient tells me that he has both Chiari malformation and syringomyelia that he had decompressed in [place] 25 years ago. I ordered MRI of the brain and MRI of the cervical, thoracic, and lumbar spine since the right sided weakness have been worsening over the past month with new paresthesias. MRI demonstrates the Chiari malformation and MRI spine demonstrates the extension of the syringomyelia. Previously it had only gone down to T4. Now it is down to T9. I spoke with neurology, who recommended that patient be transferred down to [facility] for neurosurgery. If patient did not want to be transferred for surgery, then patient would go to rehab. I discussed this with the patient. The patient told me that the tube decompression surgery was very taxing, and he spent more than half a year recovering from the surgery. If he was to be transferred down to [facility] for the same tube decompression, he did not want to be transferred. If it was a different procedure, patient would be okay to be transferred. I called down to [facility] and spoke with Dr. Barrera, the neurosurgeon. He looked at the images that was pushed forward. The only procedure available for the patient would be the tube decompression. I explained to the patient that the only procedure available was the tube decompression, and the patient declined. Patient wanted rehab instead and patient was sent to ARU. Of note, he has had low blood glucose on evening of 09/14 and morning of 09/15. I initially decreased his Levemir from 26 units qAM to 10 units qAM since the both of these glucose reads were while on Levemir 26 units. His fasting blood surgery morning of 09/16 was 91, and I held Levemir 10units. His low morning blood glucose may have played a role is morning weakness and fatigue. I held Levemir and continued him on sliding scale. Vitamin B12 and Thyroid studies are within normal limits. Pending testosterone level. DISCHARGE MEDICATIONS: Please see below. ALLERGIES: Please see below. PHYSICAL EXAMINATION ON DISCHARGE: VITAL SIGNS: Please see below. GENERAL: Comfortable, in no apparent distress HEENT: Head normocephalic, atraumatic NECK: Supple CARDIOVASCULAR EXAMINATION: Regular rate and rhythm RESPIRATORY EXAMINATION: Lungs clear to auscultation bilaterally ABDOMINAL EXAMINATION: Obese, but soft, non-tender, normal bowel sounds EXTREMITIES:Bilateral pitting edema SKIN: Warm and dry NEUROLOGICAL EXAMINATION: CN 3-12 grossly intact PSYCHIATRIC EXAMINATION: Normal mood and affect LABORATORY DATA: Please see below. IMAGING: Brain MRI (radiologist read) Brain: A Chiari 1 malformation is again noted. There is crowding of the cervicomedullary junction. No restricted diffusion is seen to suggest acute infarction. There is no acute intracranial hemorrhage, cerebral edema, or midline shift. Age-related cerebral and cerebellar substance loss is present. Mild increased T2 and FLAIR signal within the periventricular white matter and miguel is present. This is nonspecific but likely related to chronic microangiopathic ischemic change. Cerebral ventricles: Mild ex vacuo dilation of the lateral and third ventricles is noted. Bones/joints: Unremarkable. Paranasal sinuses: Normal as visualized. No acute sinusitis. Mastoid air cells: Normal as visualized. No mastoid effusion. Orbital cavity: The patient is likely status post bilateral cataract surgery. Soft tissues: Unremarkable. MRI cervical spine 1. Unchanged cerebellar tonsillar ectopia/Chiari 1 malformation with associated crowding at the craniocervical junction. 2. Allowing for significant patient motion artifact, there is no significant change in the longitudinally extensive spinal cord syrinx extending from C1 inferiorly into the thoracic spinal cord below the field of imaging with associated parenchymal volume loss. MRI thoracic spine 1. Within constraints of severe motion artifact, there is an extensive spinal cord syrinx extending from the imaged cervical spinal cord inferiorly to the T9 level with cord thinning and likely myelomalacia superiorly. 2. No convincing severe thoracic spinal canal stenosis. MRI lumbar spine Multilevel lumbar spine degenerative change, although without moderate or severe spinal canal stenosis. Severe bilateral neural foraminal narrowing at L5-S1. PROGNOSIS: Good ACTIVITY: As tolerated. DIET: Carbohydrate consistent diet DISCHARGE PLAN: ARU DISPOSITION: 62 D/T Rehab Facility. DISCHARGE INSTRUCTIONS: 1. Follow up with PCP in a week after discharge from ARU. 2. You can choose to follow up with neurosurgery, Dr. Barrera, at [facility] if desired. ITEMS TO FOLLOWUP ON ON OUTPATIENT: 1. Testosterone levels DISCHARGE CONDITION: Stable. Total time spent on discharge planning, discharge summary, and medication reconciliation: 60 minutes Vital Signs/I&Os Vital Signs Date Time Temp Pulse Resp B/P (MAP) Pulse Ox O2 Delivery O2 Flow Rate FiO2 09/16/20 14:00 97.7 76 18 155/76 (102) 97 Room Air I&O- Last 24 Hours up to 6 AM 09/16/20 06:00 Intake Total 1620 ml Output Total 125 ml Balance 1495 ml Laboratory Data Labs 24H Laboratory Tests 2 09/16/20 06:14: Nucleated Red Blood Cells % (auto) 0.0, Anion Gap 3L, Glomerular Filtration Rate > 60.0, Calcium Level 8.7L, Magnesium Level 2.4 09/16/20 11:33: Bedside Glucose (Misc Panel) 139H 09/16/20 13:25: Lab Scanned Report Miscellaneous Lab 09/16/20 16:43: Bedside Glucose (Misc Panel) 103 CBC/BMP Laboratory Tests 09/16/20 06:14 FSBS Laboratory Tests Test 09/16/20 11:33 09/16/20 16:43 Range/Units Bedside Glucose (Misc Panel) 139 103 83-110 MG/DL Discharge Medications Scheduled Allopurinol (Allopurinol) 100 Mg Tab, 100 MG PO DAILY, (Reported) Ascorbic Acid (Vitamin C) 500 Mg Tab, 1,000 MG PO DAILY, (Reported) Aspirin (Aspirin EC) 81 Mg Tab, 81 MG PO QHS, (Reported) Ferrous Sulfate (Ferrous Sulfate) 325 Mg Tablet, 325 MG PO BID, (Reported) Furosemide (Furosemide) 40 Mg Tab, 40 MG PO DAILY, (Reported) Hydroxyzine HCl (Hydroxyzine HCl) 10 Mg Tablet, 10 MG PO BID, (Reported) Insulin Human Lispro (Humalog) 100 Unit/1 Ml Vial, 0 UNITS SC AC per sliding scale Insulin Human Lispro (Humalog) 100 Unit/1 Ml Vial, 0 UNITS SC QHS per sliding scale Multivitamins (Thera M Plus Tablet) 1 Tab Tab, 1 TAB PO DAILY, (Reported) Omeprazole (Omeprazole) 20 Mg Tab, 40 MG PO DAILY, (Reported) Primidone (Primidone) 50 Mg Tablet, 25 MG PO BID, (Reported) Rosuvastatin Calcium (Crestor) 20 Mg Tab, 20 MG PO QHS, (Reported) Sertraline HCl (Sertraline HCl) 50 Mg Tablet, 50 MG PO DAILY, (Reported) Tamsulosin HCl (Flomax) 0.4 Mg Cap, 0.4 MG PO QHS, (Reported) Telmisartan (Micardis) 20 Mg Tab, 10 MG PO QHS, (Reported) Scheduled PRN Docusate Sodium (Docusate Sodium) 100 Mg Capsule, 100 MG PO BID PRN for CONSTIPATION, (Reported) Nitroglycerin (Nitrostat) 0.4 Mg Subl, 0.4 MG SL NITRO PRN for ANGINA, (Reporte d) Sennosides/Docusate Sodium (Senna Plus Tablet) 1 Each Tablet, 2 TAB PO QHS PRN for CONSTIPATION, (Reported) Allergies Coded Allergies: lisinopril (Verified Adverse Reaction, Intermediate, HYPOTENSION, 01/18/20) metformin (Verified Adverse Reaction, Intermediate, LOWERS KIDNEY FUNCTON, 01/18/20) finasteride (Verified Adverse Reaction, Unknown, DIZZINESS, 07/16/20) DARÍO GIVENS DO Sep 16, 2020 22:13
[2020-09-17 16:08] LABS: TESTOSTERONE FREE (DIRECT) 1.5 pg/mL (6.6-18.1)
== END 2020-09-16 17:12 | DRG 57 ==
LOC: M ED 06:29 → M ED INP 10:33 → ENRESERV 11:13 → M MSPAV 12:20
PROVIDERS: ADMIT Internal Medicine; ATTEND Internal Medicine
DX: G95.0 Syringomyelia and syringobulbia (principal); I50.32 Chronic diastolic (congestive) heart failure; G81.91 Hemiplegia, unspecified affecting right dominant side; I11.0 Hypertensive heart disease with heart failure; N40.0 Benign prostatic hyperplasia without lower urinary tract symptoms; F41.9 Anxiety disorder, unspecified; F32.9 Major depressive disorder, single episode, unspecified; M10.9 Gout, unspecified; E11.9 Type 2 diabetes mellitus without complications; Z79.899 Other long term (current) drug therapy; Z79.82 Long term (current) use of aspirin; Z79.4 Long term (current) use of insulin; Z88.8 Allergy status to other drugs, medicaments and biological substances; R29.6 Repeated falls; G47.33 Obstructive sleep apnea (adult) (pediatric); K21.9 Gastro-esophageal reflux disease without esophagitis

== ENCOUNTER 2020-09-16 14:46 | Inpatient (IN) | payer MEDICARE, BC, OTHER ==
[~2020-09-16] VITALS: Ht 172.7 cm; Wt 110.7 kg
[~2020-09-16 14:46] MED LIST changes: +DOCU100C16 PO; +FERR1TAB8 PO; +FINA5TAB2 PO; +INSUHUMDS SC; +LEVE1INJ5 SC
[2020-09-16] MEDS ORDERED: GLUCAGON INJ 1MG VIAL SC PRN (16:10)
[2020-09-16] MEDS ORDERED: MIRALAX *UNIT DOSE* 17GM PACKET PO PRN (16:10)
[2020-09-16] MEDS ORDERED: NITROGLYCERIN 0.4 MG SUBL TABLET SL PRN (16:10)
[2020-09-16] MEDS ORDERED: DEXTROSE 50% 50 ML SYRINGE IV PRN (16:10)
[2020-09-16] MEDS ORDERED: GLUCOSE 4GM CHEW TABLET PO PRN (16:10)
[2020-09-16] MEDS ORDERED: ACETAMINOPHEN TAB 650MG DOSE (2X325MG) PO PRN (16:10)
[2020-09-16 17:45] VITALS: BP 111/51
[2020-09-16 20:08] VITALS: BP 152/70
[2020-09-16] MEDS: HumaLOG INSULIN (NovoLOG) PER UNIT SC SCH (20:53)
[2020-09-16] MEDS: FERROUS SULFATE 325MG TAB PO SCH (21:42)
[2020-09-16] MEDS: DOCUSATE SODIUM 100MG CAPSULE PO SCH (21:42)
[2020-09-16] MEDS: ASPIRIN 81MG ENTERIC TABLET PO SCH (21:42)
[2020-09-16] MEDS: hydrOXYzine 10 MG TAB PO SCH (21:42)
[2020-09-16] MEDS: ROSUVASTATIN 10 MG TAB (CRESTOR) PO SCH (21:42)
[2020-09-16] MEDS: PRIMIDONE 25MG PER 1/2 TABLET PO SCH (21:42)
[2020-09-16] MEDS: TELMISARTAN 20 MG TAB PO SCH (21:51)
[2020-09-16] MEDS: SENNA 8.6 MG TAB (SENOKOT) PO SCH (21:51)
[2020-09-16] MEDS: TAMSULOSIN 0.4 MG CAP PO SCH (21:51)
[2020-09-16] MEDS: REMEDY PHYTOPLEX Z-GUARD PASTE 113GM TUBE (FROM STOREROOM PRODUCT) TOP SCH (21:57)
[2020-09-17 06:00] VITALS: BP 155/73
[2020-09-17 06:24] LABS: BASO % 0.2 % (0.0-1.0); EOS # 0.1 10^3/uL (0.0-0.5); EOS % 2.1 % (0.0-3.0); HEMATOCRIT 25.2 % (42.0-52.0); LYMPH # 0.9 10^3/uL (1.5-5.0); LYMPH % 18.1 % (24.0-44.0); MEAN CORPUSCULAR HEMOGLOBIN 31.3 pg (27.0-33.0); MEAN CORPUSCULAR HGB CONC 31.7 g/dl (32.0-36.5); MEAN CORPUSCULAR VOLUME 98.4 fl (80.0-96.0); MONO # 0.7 10^3/uL (0.0-0.8); MONO % 15.3 % (2.0-8.0); NEUTROPHILS # 3.1 10^3/uL (1.5-8.5); NEUTROPHILS % 64.1 % (36.0-66.0); PLATELET COUNT, AUTOMATED 132 10^3/uL (150-450); RED BLOOD COUNT 2.56 10^6/uL (4.30-6.10); WHITE BLOOD COUNT 4.9 10^3/uL (4.0-10.0)
[2020-09-17 06:53] LABS: ALBUMIN 3.1 GM/DL (3.2-5.2); ALT/SGPT 102 U/L (12-78); BILIRUBIN,TOTAL 0.1 MG/DL (0.2-1.0); BLOOD UREA NITROGEN 34 MG/DL (7-18); CALCIUM LEVEL 8.1 MG/DL (8.8-10.2); CARBON DIOXIDE LEVEL 31 MEQ/L (21-32); CHLORIDE LEVEL 104 MEQ/L (98-107); CREATININE FOR GFR 0.96 MG/DL (0.70-1.30); GLOMERULAR FILTRATION RATE > 60.0 (>42); GLUCOSE, FASTING 80 MG/DL (70-100); POTASSIUM SERUM 4.6 MEQ/L (3.5-5.1); SODIUM LEVEL 140 MEQ/L (136-145); TOTAL PROTEIN 6.2 GM/DL (6.4-8.2)
[2020-09-17] MEDS: HumaLOG INSULIN (NovoLOG) PER UNIT SC SCH ×4 (07:30→20:39)
[2020-09-17] MEDS: OMEPRAZOLE 20 MG CAP PO SCH (09:11)
[2020-09-17] MEDS: FUROSEMIDE 40 MG TAB PO SCH (09:11)
[2020-09-17] MEDS: FERROUS SULFATE 325MG TAB PO SCH ×2 (09:11→20:44)
[2020-09-17] MEDS: hydrOXYzine 10 MG TAB PO SCH ×2 (09:11→20:44)
[2020-09-17] MEDS: SERTRALINE HCL 50 MG TAB PO SCH (09:11)
[2020-09-17] MEDS: MULTIVITAMINS/MINERALS THERAP 1 TAB PO SCH (09:11)
[2020-09-17] MEDS: DOCUSATE SODIUM 100MG CAPSULE PO SCH ×2 (09:11→20:43)
[2020-09-17] MEDS: ASCORBIC ACID 500 MG TAB PO SCH (09:11)
[2020-09-17] MEDS: ENOXAPARIN 40MG/0.4ML SYRINGE (J1650 PER 10MG) SC SCH (09:12)
[2020-09-17] MEDS: allopurinoL 100 MG TAB PO SCH (09:12)
[2020-09-17] MEDS: PRIMIDONE 25MG PER 1/2 TABLET PO SCH ×2 (09:12→20:43)
[2020-09-17] MEDS: REMEDY PHYTOPLEX Z-GUARD PASTE 113GM TUBE (FROM STOREROOM PRODUCT) TOP SCH ×3 (09:13→20:45)
--- NOTE | 2020-09-17 12:18 | HPEPDOC ---
Front End Assistant Note DATE OF ADMISSION: 09-16-20 DATE OF SERVICE: 09-17-20 TIME OF ADMISSION: Please refer to physician's admission order. SOURCE OF ADMISSION INFORMATION: [facility] record and patient CHIEF COMPLAINT: syringomyelia extension with right sided paresis HISTORY OF PRESENT ILLNESS: 70M pmh syringomyelia with right sided paresis, bowel incontinence, iron deficiency anemia, diastolic CHF, low testosterone, depression, BPH, LIANNA on CPAP, HTN, HLD, DM who presented to [facility] ED on 09-14-20 with worsening right sided weakness with falls at home. Cervical MRI showed, "Unchanged cerebellar tonsillar ectopia/Chiari 1 malformation with associated crowding at the craniocervical junction no significant change in the longitudinally extensive spinal cord syrinx extending from C1 inferiorly into the thoracic spinal cord below the field of imaging with associated parenchymal volume loss". Thoracic MRI showed, "extensive spinal cord syrinx extending from the imaged cervical spinal cord inferiorly to the T9 level with cord thinning and likely myelomalaci a superiorly" and Lumbar MRI showed "Severe bilateral neural foraminal narrowing at L5-S1." Patient declined neurosurgical intervention for the caudal extension of his syrinx from T-4 down to T-9 and requested therapy. He was noted to have anemia and hypoglycemia for which his home medications were held. He was evaluated by therapy, noted to have mobility and ADL impairments and deemed medically appropriate for discharge to ARU. On admission patient reports chronic bowel incontinence, but no trouble urinating. REVIEW OF SYSTEMS: The following is a completed review of systems and has been r eviewed. Review of systems otherwise unremarkable. PAIN: Patient self reports no pain EYES: No recent vision changes EARS, NOSE, & THROAT: No throat pain, or dysphagia, or rhinorrhea CARDIOVASCULAR: Denies chest pain or palpitations PULMONARY: Denies shortness of breath GASTROINTESTINAL: +fecal incontinence GENITOURINARY: denies dysuria MUSCULOSKELETAL: right sided weakness NEUROLOGICAL:rght sided paresis and paresthesias HEMATOLOGICAL: denies easy bruising SKIN: denies rash PSYCHIATRIC: Unremarkable All other review of systems found to be negative. PAST MEDICAL HISTORY: as per HPI PAST SURGICAL HISTORY: Shunt placement 1978, right scalene muscle removal ALLERGIES: Please see below. MEDICATIONS: Please see below. FAMILY HISTORY: cardiac SOCIAL HISTORY: Former smoker, occasional etoh, no illicit drugs DIET: low sodium PHYSICAL EXAMINATION: VITAL SIGNS: Please see below. GENERAL: Pleasant and cooperative. No acute distress. HEENT: PERRL. Extraocular movements intact. Clear conjunctiva CARDIOVASCULAR: Regular rate and rhythm. No murmurs, rubs, or gallops LUNGS: Clear to auscultation bilaterally. No wheezes. No rhonchi ABDOMEN: distended, no guarding, no TTP, Positive bowel sounds NEUROLOGICAL: Alert and oriented times three. Cranial nerves II through XII grossly intact. +babinski bilat (decreased sensation to light touch bilat LE in stocking pattern and diffusely RUE) EXTREMITIES: 5-\\5 strength right upper extremities. 5/5 LUE, 5\\5 strength right lower extremity. 5/5 strength in left lower extremity. SKIN: intact LABORATORY DATA: Please see below. IMAGING:Imaging documentation personally reviewed by record FUNCTIONAL STATUS: Premorbid: Modified Independent with all activities of daily life as well as mobility On Admission: Min assist for functional transfers, ambulation, functional transfers GOALS: Mod-I ambulating community distances, bed mobility, dressing, bathing, toileting, functional transfers ASSESSMENT:70-year-old M with past medical history of syrinx who presents status post worsenign right sided weakness and gait instability with extension of his syrinx don to T9 PLAN: 1. Rehab- PT/OT advance mobilty and ADl- strengthen/stretch/maintain ROM all 4 limbs 2. 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 CArdiac- hx of chronic diastolic CHF- fluid restrict, daily weights, lasix- medicine consulted to assist in overall management -HLD c/u statin -HTN c/u BP meds ,adjust prn -medicine consulted to assist in overall management 4 resp- hx of LIANNA on CPAP 5. endo- DM with hypoglycemia, hold oral aganets, c/u ISS, may d/c if continues to have low blood glucose levels due to risk of falls at home 6. DVT ppx- lovenox 7. GI- c/u prilosec for ppx -concnern for neurogenic bowel will order KUB to check for fecal retention 8. Heme- iron deficincey anemia, c/u supplement 9. Psych- hx of depression, c/u zoloft and atarax 10. - monitor PVRs, c/u flomax 11. DIspo- tbd POST ADMISSION PHYSICIAN EVALUATION: Medical and functional status: Description of medical status, medical assessment: As above. Rehabilitation diagnosis and current and prior cold morbid medical conditions as above. Risk of complications and plans to mitigate them as above. Description of functional status current status is as above. Prior status as above. Status compared to preadmission: There are no clinically significant differences between the patient's current status and the information described on the preadmission screening document. Treatment plan anticipated: Treatment plan is as described above. Required disciplines including physical therapy, occupational therapy, others as noted above. Intensity of services: 3 hours a day, 6 days a week. Special considerations: There are no specific special or safety considerations that would likely preclude immediate implementation of an intensive rehabilitation program or subsequently influence the plan of care. ATTESTATION: Considering all the information above, it is my best judgment that this patient requires intensive rehabilitation therapy as described above and an inpatient hospital environment due to the complexity of nursing, medical, and rehabilitation needs required by the patient. Furthermore, this patient can reasonably be expected to participate in an benefit from an inpatient rehabilitation stay with an interdisciplinary team approach to the delivery of rehabilitation care under the direction and supervision of rehabilitation physician PROGNOSIS: Excellent ESTIMATED LENGTH OF STAY:10-14 days. PROJECTED DISCHARGE DESTINATION: Home with family support and any durable medical equipment required to increase functional safety and mobility TIME SPENT COUNSELING AND COORDINATING INITIAL CARE: Greater than 70 minutes. Vital Signs Vital Sign - Last 24 Hours 09/16/20 09/16/20 09/17/20 17:45 20:08 06:00 Temp 96.3 97.1 96.8 Pulse 78 78 80 Resp 18 18 18 B/P (MAP) 111/51 (71) 152/70 (97) 155/73 (100) Pulse Ox 97 100 97 O2 Delivery Room Air Room Air Room Air Laboratory Data CBC/BMP Laboratory Tests 09/17/20 05:48 Labs 24H Laboratory Tests 2 09/17/20 05:48: Immature Granulocyte % (Auto) 0.2, Neutrophils (%) (Auto) 64.1, Lymphocytes (%) (Auto) 18.1L, Monocytes (%) (Auto) 15.3H, Eosinophils (%) (Auto) 2.1, Basophils (%) (Auto) 0.2, Neutrophils # (Auto) 3.1, Lymphocytes # (Auto) 0.9L, Monocytes # (Auto) 0.7, Eosinophils # (Auto) 0.1, Basophils # (Auto) 0.0, Nucleated Red Blood Cells % (auto) 0.0, Anion Gap 5L, Glomerular Filtration Rate > 60.0, [place] Level 8.1L, Total Bilirubin 0.1L, Aspartate Amino Transf (AST/SGOT) 88H, Alanine Aminotransferase (ALT/SGPT) 102H, Alkaline Phosphatase 123H, Total Protein 6.2L, Albumin 3.1L, Albumin/Globulin Ratio 1.0 09/17/20 11:19: Bedside Glucose (Misc Panel) 103 FSBS Laboratory Tests Test 09/17/20 11:19 Range/Units Bedside Glucose (Misc Panel) 103 83-110 MG/DL Home Medications Scheduled Allopurinol (Allopurinol) 100 Mg Tab, 100 MG PO DAILY, (Reported) Ascorbic Acid (Vitamin C) 500 Mg Tab, 1,000 MG PO DAILY, (Reported) Aspirin (Aspirin EC) 81 Mg Tab, 81 MG PO QHS, (Reported) Ferrous Sulfate (Ferrous Sulfate) 325 Mg Tablet, 325 MG PO BID, (Reported) Furosemide (Furosemide) 40 Mg Tab, 40 MG PO DAILY, (Reported) Hydroxyzine HCl (Hydroxyzine HCl) 10 Mg Tablet, 10 MG PO BID, (Reported) Insulin Human Lispro (Humalog) 100 Unit/1 Ml Vial, 0 UNITS SC AC per sliding scale Insulin Human Lispro (Humalog) 100 Unit/1 Ml Vial, 0 UNITS SC QHS per sliding scale Multivitamins (Thera M Plus Tablet) 1 Tab Tab, 1 TAB PO DAILY, (Reported) Omeprazole (Omeprazole) 20 Mg Tab, 40 MG PO DAILY, (Reported) Primidone (Primidone) 50 Mg Tablet, 25 MG PO BID, (Reported) Rosuvastatin Calcium (Crestor) 20 Mg Tab, 20 MG PO QHS, (Reported) Sertraline HCl (Sertraline HCl) 50 Mg Tablet, 50 MG PO DAILY, (Reported) Tamsulosin HCl (Flomax) 0.4 Mg Cap, 0.4 MG PO QHS, (Reported) Telmisartan (Micardis) 20 Mg Tab, 10 MG PO QHS, (Reported) Scheduled PRN Docusate Sodium (Docusate Sodium) 100 Mg Capsule, 100 MG PO BID PRN for CONSTIPATION, (Reported) Nitroglycerin (Nitrostat) 0.4 Mg Subl, 0.4 MG SL NITRO PRN for ANGINA, (Reported) Sennosides/Docusate Sodium (Senna Plus Tablet) 1 Each Tablet, 2 TAB PO QHS PRN for CONSTIPATION, (Reported) Allergies Coded Allergies: lisinopril (Verified Adverse Reaction, Intermediate, HYPOTENSION, 01/18/20) metformin (Verified Adverse Reaction, Intermediate, LOWERS KIDNEY FUNCTON, 01/18/20) finasteride (Verified Adverse Reaction, Unknown, DIZZINESS, 07/16/20) A-FIB/CHADSVASC A-FIB History Current/History of A-Fib/PAF?: No Current PO Anticoag Therapy: No LV HEREDIA MD Sep 17, 2020 12:17
--- NOTE | 2020-09-17 13:28 | IPNPDOC ---
Text Note Date of Service The patient was seen on 09/17/20. NOTE Subjective -No acute complaints since arriving to ARU -denies chest pain or dyspnea Objective Physical Examination General: Alert, NAD, Cooperative Eyes: EOMI, PERRLA ENT: Atraumatic, MMM Neck: Supple Chest: Clear to auscultation, without rales, rhonchi or wheezing Heart: Rate Normal, Regular Rhythm, no m/r/g Abdomen: Obese, soft, NTND Extremities: chronic bilateral pitting edema Neuro: Normal Speech, Cranial Nerves 3-12 NL, Strength at 5/5 X4 ext, mildly weaker in the right leg Psych: Mental status NL, Mood NL Labs: reviewed Imaging: reviewed Assessment: Mr. Vilchis is a 70-year-old M with diabetes mellitus type 2, syringomyelia with right-sided deficits, and history of low testosterone who presents with increasing fatigue and right-sided weakness with extensive spinal cord syrinx extending from the imaged cervical spinal cord inferiorly to the T9 level with c ord thinning and likely myelomalacia superiorly. now transferred to the ARU. Plan 1. Gait instability He has progressive weakness in the right leg for more than a year and was having frequent falls -PT/OT per PM&R 2. Fatigue He also has iron deficiency anemia. In July 2020, iron was 23 and ferritin 17. continue ferrous sulfate 325mg BID -vitamin B12 level was wnl and testosterone level is still pending -Thyroid studies were within normal limits -PT/OT as above 3. Diabetes mellitus type 2 -continue SSI ACHS and FSBG ACHS Carbohydrate consistent diet 4. Gout Continue allopurinol 5. Chronic heart failure with preserved ejection fraction Echocardiogram in July 2020 demonstrates an EF of 60-65% Continue Lasix 6. Hypertension Continue telmisartan Also on tamsulosin 7. BPH Continue tamsulosin 8. Anxiety and depression Continue sertraline and hydroxyzine 9. DVT prophylaxis Lovenox Disposition: Per PM&R in ARU. VS,Mónica, I+O VS, Mónica, I+O Laboratory Tests 09/17/20 05:48 Vital Signs Date Time Temp Pulse Resp B/P (MAP) Pulse Ox O2 Delivery O2 Flow Rate FiO2 09/17/20 06:00 96.8 80 18 155/73 (100) 97 Room Air I&O- Last 24 Hours up to 6 AM 3/16/21 06:00 Intake Total 420 ml Balance 420 ml RUPESH HUERTA MD Sep 17, 2020 12:25
[2020-09-17 14:00] VITALS: BP 120/56
--- NOTE | 2020-09-17 14:49 | REP ---
INDICATION: fecal retention- neurogenic bowel. COMPARISON: Abdomen/pelvis CT dated 09/18/2008. TECHNIQUE: Three supine views of the abdomen. FINDINGS: There is gaseous distention of the stomach. There is gaseous distention of the small bowel. There is mild gaseous distention of the colon. There is a minimal volume of fecal residue throughout the colon. IMPRESSION: Findings are compatible with small bowel obstruction versus ileus. <Electronically signed by Bautista Garcia > 09/17/20 [id number]
[2020-09-17] MEDS: SIMETHICONE 80MG CHEW TAB PO SCH ×2 (17:41→20:43)
[2020-09-17] MEDS ORDERED: NS 1,000 ML IV SCH (19:30)
[2020-09-17 20:20] VITALS: BP 160/88
[2020-09-17] MEDS: SENNA 8.6 MG TAB (SENOKOT) PO SCH (20:43)
[2020-09-17] MEDS: ASPIRIN 81MG ENTERIC TABLET PO SCH (20:43)
[2020-09-17] MEDS: ROSUVASTATIN 10 MG TAB (CRESTOR) PO SCH (20:43)
[2020-09-17] MEDS: TAMSULOSIN 0.4 MG CAP PO SCH (20:43)
[2020-09-17] MEDS: TELMISARTAN 20 MG TAB PO SCH (20:44)
[2020-09-18] MEDS ORDERED: D5W/0.45% SODIUM CHLORIDE 1,000 ML IV SCH (00:30)
[2020-09-18 06:16] VITALS: BP 160/74
[2020-09-18 06:40] LABS: BASO % 0.2 % (0.0-1.0); EOS # 0.1 10^3/uL (0.0-0.5); EOS % 2.5 % (0.0-3.0); HEMATOCRIT 25.8 % (42.0-52.0); HEMOGLOBIN 8.3 g/dl (13.5-17.5); LYMPH # 0.9 10^3/uL (1.5-5.0); LYMPH % 21.8 % (24.0-44.0); MEAN CORPUSCULAR HEMOGLOBIN 31.6 pg (27.0-33.0); MEAN CORPUSCULAR HGB CONC 32.2 g/dl (32.0-36.5); MEAN CORPUSCULAR VOLUME 98.1 fl (80.0-96.0); MONO # 0.7 10^3/uL (0.0-0.8); MONO % 15.3 % (2.0-8.0); NEUTROPHILS # 2.6 10^3/uL (1.5-8.5); PLATELET COUNT, AUTOMATED 147 10^3/uL (150-450); RED BLOOD COUNT 2.63 10^6/uL (4.30-6.10); WHITE BLOOD COUNT 4.3 10^3/uL (4.0-10.0)
[2020-09-18 07:07] LABS: BLOOD UREA NITROGEN 30 MG/DL (7-18); CALCIUM LEVEL 8.5 MG/DL (8.8-10.2); CARBON DIOXIDE LEVEL 33 MEQ/L (21-32); CHLORIDE LEVEL 106 MEQ/L (98-107); CREATININE FOR GFR 0.92 MG/DL (0.70-1.30); GLOMERULAR FILTRATION RATE > 60.0 (>42); GLUCOSE, FASTING 106 MG/DL (70-100); POTASSIUM SERUM 4.8 MEQ/L (3.5-5.1); SODIUM LEVEL 142 MEQ/L (136-145)
[2020-09-18] MEDS: HumaLOG INSULIN (NovoLOG) PER UNIT SC SCH ×4 (07:30→20:26)
[2020-09-18] MEDS: SIMETHICONE 80MG CHEW TAB PO SCH ×3 (09:00→20:25)
[2020-09-18] MEDS: ENOXAPARIN 40MG/0.4ML SYRINGE (J1650 PER 10MG) SC SCH (09:00)
[2020-09-18] MEDS: OMEPRAZOLE 20 MG CAP PO SCH (09:06)
[2020-09-18] MEDS: FUROSEMIDE 40 MG TAB PO SCH (09:06)
[2020-09-18] MEDS: ASCORBIC ACID 500 MG TAB PO SCH (09:06)
[2020-09-18] MEDS: DOCUSATE SODIUM 100MG CAPSULE PO SCH ×2 (09:06→20:25)
[2020-09-18] MEDS: MULTIVITAMINS/MINERALS THERAP 1 TAB PO SCH (09:06)
[2020-09-18] MEDS: PRIMIDONE 25MG PER 1/2 TABLET PO SCH ×2 (09:07→20:26)
[2020-09-18] MEDS: allopurinoL 100 MG TAB PO SCH (09:07)
[2020-09-18] MEDS: SERTRALINE HCL 50 MG TAB PO SCH (09:07)
[2020-09-18] MEDS: FERROUS SULFATE 325MG TAB PO SCH ×2 (09:07→20:25)
[2020-09-18] MEDS: REMEDY PHYTOPLEX Z-GUARD PASTE 113GM TUBE (FROM STOREROOM PRODUCT) TOP SCH ×3 (09:11→20:27)
[2020-09-18] MEDS: hydrOXYzine 10 MG TAB PO SCH ×2 (09:13→20:26)
--- NOTE | 2020-09-18 10:30 | IPNPDOC ---
PM&R Progress Note DATE OF SERVICE: Sep 18, 2020 Can Intake Worker Progress Note Subjective: Patient reporting he feels good and is interested in trying a suppository around noon each day. REVIEW OF SYSTEMS: The following is a completed review of systems and has been reviewed. Review of systems otherwise unremarkable. PAIN: Patient self reports no pain EYES: No recent vision changes EARS, NOSE, & THROAT: No throat pain, or dysphagia, or rhinorrhea CARDIOVASCULAR: Denies chest pain or palpitations PULMONARY: Denies shortness of breath GASTROINTESTINAL: +fecal incontinence GENITOURINARY: denies dysuria MUSCULOSKELETAL: right sided weakness NEUROLOGICAL:right sided paresis and paresthesias HEMATOLOGICAL: denies easy bruising SKIN: denies rash PSYCHIATRIC: Unremarkable All other review of systems found to be negative. PHYSICAL EXAMINATION: VITAL SIGNS: Please see below. GENERAL: Pleasant and cooperative. No acute distress. HEENT: PERRL. Extraocular movements intact. Clear conjunctiva CARDIOVASCULAR: Regular rate and rhythm. No murmurs, rubs, or gallops LUNGS: Clear to auscultation bilaterally. No wheezes. No rhonchi ABDOMEN: distended, no guarding, no TTP, Positive bowel sounds NEUROLOGICAL: Alert and oriented times three. Cranial nerves II through XII grossly intact. +babinski bilat (decreased sensation to light touch bilat LE in stocking pattern and diffusely RUE) EXTREMITIES: 5-\5 strength right upper extremities. 5/5 LUE, 5\5 strength right lower extremity. 5/5 strength in left lower extremity. SKIN: intact ASSESSMENT:70-year-old M with past medical history of syrinx who presents status post worsenign right sided weakness and gait instability with extension of his syrinx don to T9 PLAN: 1. Rehab- PT/OT advance mobilty and ADl- strengthen/stretch/maintain ROM all 4 limbs 2. 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 CArdiac- hx of chronic diastolic CHF- fluid restrict, daily weights, lasix- medicine consulted to assist in overall management -HLD c/u statin -HTN c/u BP meds ,adjust prn -medicine consulted to assist in overall management 4 resp- hx of LIANNA on CPAP 5. endo- DM with hypoglycemia, hold oral agents, c/u ISS, may d/c if continues to have low blood glucose levels due to risk of falls at home 6. DVT ppx- lovenox 7. GI- c/u prilosec for ppx -KUB 09-17-20 ordered to rule out fecal retention in setting of neurogenic bowel, showing ileus vs SBO- case discussed with general surgery who recommended NPO overnight, diet restarted this morning per surgery, will c/u to monitor 8. Heme- iron deficincey anemia, c/u supplement 9. Psych- hx of depression, c/u zoloft and atarax 10. - monitor PVRs, c/u flomax 11. DIspo- tbd Allergies Coded Allergies: lisinopril (Verified Adverse Reaction, Intermediate, HYPOTENSION, 01/18/20) metformin (Verified Adverse Reaction, Intermediate, LOWERS KIDNEY FUNCTON, 01/18/20) finasteride (Verified Adverse Reaction, Unknown, DIZZINESS, 07/16/20) Vital Signs Vital Signs Date Time Temp Pulse Resp B/P (MAP) Pulse Ox O2 Delivery O2 Flow Rate FiO2 09/18/20 06:16 98.6 84 18 160/74 (102) 93 Room Air Laboratory Data CBC/BMP Laboratory Tests 09/18/20 06:03 Labs 24H Laboratory Tests 2 09/17/20 11:19: Bedside Glucose (Misc Panel) 103 09/17/20 16:31: Bedside Glucose (Misc Panel) 142H 09/17/20 20:24: Bedside Glucose (Misc Panel) 80L 09/17/20 23:59: Bedside Glucose (Misc Panel) 72L 09/18/20 06:03: Immature Granulocyte % (Auto) 0.2, Neutrophils (%) (Auto) 60.0, Lymphocytes (%) (Auto) 21.8L, Monocytes (%) (Auto) 15.3H, Eosinophils (%) (Auto) 2.5, Basophils (%) (Auto) 0.2, Neutrophils # (Auto) 2.6, Lymphocytes # (Auto) 0.9L, Monocytes # (Auto) 0.7, Eosinophils # (Auto) 0.1, Basophils # (Auto) 0.0, Nucleated Red Blood Cells % (auto) 0.0, Anion Gap 3L, Glomerular Filtration Rate > 60.0, Calcium Level 8.5L 3/17/21 06:45: Bedside Glucose (Misc Panel) 98 Current Medications Current Medications Current Medications Medications (Trade) Dose Ordered Sig/Imelda Route PRN Reason Start Time Stop Time Status Last Admin Dose Admin Acetaminophen (Tylenol Tab) 650 mg Q4HP PRN PO fever/MILD PAIN (PS 1-4) 09/16/20 16:10 Allopurinol (Zyloprim) 100 mg DAILY PO 09/17/20 09:00 09/18/20 09:07 Ascorbic Acid (Vitamin C) 1,000 mg DAILY PO 09/17/20 09:00 09/18/20 09:06 Aspirin (Ecotrin) 81 mg QHS PO 09/16/20 21:00 09/17/20 20:43 Dextrose (Dextrose 50%) 25 ml ASDIRECTED PRN IV SEE LABEL COMMENTS 09/16/20 16:10 Dextrose/Sodium Chloride 1,000 ml @ 60 mls/hr [id number] IV 09/18/20 00:30 09/18/20 10:18 DC 09/18/20 00:52 Docusate Sodium (Colace) 100 mg BID PO 09/16/20 21:00 09/18/20 09:06 Enoxaparin Sodium (Lovenox) 40 mg DAILY SC 09/17/20 09:00 09/17/20 09:12 Ferrous Sulfate (Ferrous Sulfate) 325 mg BID PO 09/16/20 21:00 09/18/20 09:07 Furosemide (Lasix) 40 mg DAILY PO 09/17/20 09:00 09/18/20 09:06 Glucagon (Glucagon) 1 mg ASDIRECTED PRN SC SEE LABEL COMMENTS 09/16/20 16:10 Glucose (Glucose) 16 GM ASDIRECTED PRN PO SEE LABEL COMMENTS 09/16/20 16:10 Hydroxyzine HCl (Atarax) 10 mg BID PO 09/16/20 21:00 09/18/20 09:13 Insulin Human Lispro (HumaLOG INSULIN) SEE PROTOCOL TABLE AC SC 09/17/20 07:30 09/17/20 17:41 Insulin Human Lispro (HumaLOG INSULIN) SEE PROTOCOL TABLE QHS SC 09/16/20 21:00 Multivitamins (Theragram-M) 1 tab DAILY PO 09/17/20 09:00 09/18/20 09:06 Nitroglycerin (Nitrostat (1/ 150)) 0.4 mg Q5MP PRN SL CHEST PAIN 09/16/20 16:10 Omeprazole (PriLOSEC) 40 mg DAILY PO 09/17/20 09:00 09/18/20 09:06 Polyethylene Glycol (Miralax) 1 pkt DAILY PRN PO CONSTIPATION 09/16/20 16:10 09/18/20 09:41 DC Primidone (Mysoline) 25 mg BID PO 09/16/20 21:00 09/18/20 09:07 Rosuvastatin Calcium (Crestor) 20 mg QHS PO 09/16/20 21:00 09/17/20 20:43 Senna (Senokot) 1 tab QHS PO 09/16/20 21:00 09/17/20 20:43 Sertraline HCl (Zoloft) 50 mg DAILY PO 09/17/20 09:00 09/18/20 09:07 Simethicone (Mylicon) 80 mg TID PO 09/17/20 16:00 09/17/20 20:43 Sodium Chloride 1,000 ml @ 60 mls/hr [id number] IV 09/17/20 19:30 09/18/20 00:31 DC 09/17/20 19:47 Tamsulosin HCl (Flomax) 0.4 mg QHS PO 09/16/20 21:00 09/17/20 20:43 Telmisartan (Micardis) 10 mg QHS PO 09/16/20 21:00 09/17/20 20:44 LV HEREDIA MD Sep 18, 2020 10:30
[2020-09-18] MEDS ORDERED: BISACODYL 10 MG SUPP PR ONE (12:15)
[2020-09-18 14:00] VITALS: BP 137/62
--- NOTE | 2020-09-18 14:35 | CR.PDOC ---
General Date of Consultation: Sep 18, [address] Casey [facility]. The patient is a 7-year-old male with history of syringomyelia with right- sided paresis with chronic bowel and urine incontinence. The patient had been having worsening right-sided weakness with falls at home and was admitted from 09/14-09/16/20 now transferred to ARU 09/16/20 for rehabilitation. Gen. surgery was consulted 09/17/20 related to SBO versus ileus on KUB. KUB was ordered 09/17/20 related to fecal retention secondary to neurogenic bowel. Imaging report indicated gaseous distention of the stomach, small bowel and colon. The patient states he does have some abdominal distention but this has been at his baseline. He has been eating and drinking without any discomfort. He denies any nausea, no vomiting. Denies any abdominal pain. The patient states at his baseline he has fecal urgency and sometimes incontinence of stool. Usually he has one bowel movement per day after eating a meal. HOME MEDICATIONS: Please see below. PAST MEDICAL HISTORY: Syringomyelia with right-sided deficits DM Unsteady gait LIANNA on CPAP Hypertension Iron deficiency anemia Dyslipidemia Depression BPH Testosterone deficiency GERD Anxiety Obesity, BMI 37.0 PAST SURGICAL HISTORY: Shunt placement in 1978 Removal of right scalene muscle FAMILY HISTORY: History of CAD and CHF SOCIAL HISTORY: Former smoker REVIEW OF SYSTEMS: As noted in HPI otherwise 10 point review systems unremarkable. PHYSICAL EXAMINATION: VITAL SIGNS: Please see below. GENERAL APPEARANCE: No acute distress, sitting in chair. Appears comfortable HEENT: Moist mucous membranes RESPIRATORY: Clear to auscultation CARDIOVASCULAR: S1-S2 regular rate rhythm ABDOMEN: Protuberant and somewhat distended but soft, nontender, no guarding, rebound, grimacing. EXTREMITIES: No edema NEUROLOGICAL: Chronic right-sided weakness Psychiatric. Pleasant and cooperative LABORATORY DATA: Please see below. ASSESSMENT/PLAN: Distention of stomach, small bowel and colon on imaging. The patient reports no abdominal discomfort or pain. No nausea or vomiting. He does have chronic fecal urgency and bowel incontinence however this has been at his baseline according to the patient. The patient states he was started on iron supplement and all regimen and then he noticed loose watery stools. Prior to at his bowel movements had been at his baseline. He had been eating and drinking with no abdominal discomfort. The patient is reviewed and examined as per Dr. Casey this morning. Imaging is reviewed by Dr. Casey. Will discontinue MiraLAX, as bowel care may be contributing to his watery bowel movements. Continue senna. The patient does not report symptoms indicating SBO or ileus. There is dis tention noted of the stomach, small bowel and colon on imaging however this can be multifactorial including the patient's reduced activity and mobility, chronic spinal cord issue, and use of CPAP at night. Since the patient is asymptomatic, we have advanced his diet to regular diet. No surgical intervention recommended at this time. Continue to monitor and observe. Vital Signs/I&O Vital Signs Date Time Temp Pulse Resp B/P (MAP) Pulse Ox O2 Delivery O2 Flow Rate FiO2 09/18/20 14:00 97.6 84 20 137/62 (87) 93 Room Air I&O- Last 24 Hours up to 6 AM 09/18/20 06:00 Intake Total 660 ml Output Total 2150 ml Balance -1490 ml Laboratory Data Labs 24H Laboratory Tests 2 09/17/20 16:31: Bedside Glucose (Misc Panel) 142H 09/17/20 20:24: Bedside Glucose (Misc Panel) 80L 09/17/20 23:59: Bedside Glucose (Misc Panel) 72L 09/18/20 06:03: Immature Granulocyte % (Auto) 0.2, Neutrophils (%) (Auto) 60.0, Lymphocytes (%) (Auto) 21.8L, Monocytes (%) (Auto) 15.3H, Eosinophils (%) (Auto) 2.5, Basophils (%) (Auto) 0.2, Neutrophils # (Auto) 2.6, Lymphocytes # (Auto) 0.9L, Monocytes # (Auto) 0.7, Eosinophils # (Auto) 0.1, Basophils # (Auto) 0.0, Nucleated Red Blood Cells % (auto) 0.0, Anion Gap 3L, Glomerular Filtration Rate > 60.0, Calcium Level 8.5L 09/18/20 06:45: Bedside Glucose (Misc Panel) 98 09/18/20 11:20: Bedside Glucose (Misc Panel) 98 CBC/BMP Laboratory Tests 09/18/20 06:03 Allergies Coded Allergies: lisinopril (Verified Adverse Reaction, Intermediate, HYPOTENSION, 01/18/20) metformin (Verified Adverse Reaction, Intermediate, LOWERS KIDNEY FUNCTON, 01/18/20) finasteride (Verified Adverse Reaction, Unknown, DIZZINESS, 07/16/20) Home Medications Scheduled Allopurinol (Allopurinol) 100 Mg Tab, 100 MG PO DAILY, (Reported) Ascorbic Acid (Vitamin C) 500 Mg Tab, 1,000 MG PO DAILY, (Reported) Aspirin (Aspirin EC) 81 Mg Tab, 81 MG PO QHS, (Reported) Ferrous Sulfate (Ferrous Sulfate) 325 Mg Tablet, 325 MG PO BID, (Reported) Furosemide (Furosemide) 40 Mg Tab, 40 MG PO DAILY, (Reported) Hydroxyzine HCl (Hydroxyzine HCl) 10 Mg Tablet, 10 MG PO BID, (Reported) Insulin Human Lispro (Humalog) 100 Unit/1 Ml Vial, 0 UNITS SC AC for 1 Days, #1 per sliding scale Insulin Human Lispro (Humalog) 100 Unit/1 Ml Vial, 0 UNITS SC QHS for 1 Days, #1 per sliding scale Multivitamins (Thera M Plus Tablet) 1 Tab Tab, 1 TAB PO DAILY, (Reported) Omeprazole (Omeprazole) 20 Mg Tab, 40 MG PO DAILY, (Reported) Primidone (Primidone) 50 Mg Tablet, 25 MG PO BID, (Reported) Rosuvastatin Calcium (Crestor) 20 Mg Tab, 20 MG PO QHS, (Reported) Sertraline HCl (Sertraline HCl) 50 Mg Tablet, 50 MG PO DAILY, (Reported) Tamsulosin HCl (Flomax) 0.4 Mg Cap, 0.4 MG PO QHS, (Reported) Telmisartan (Micardis) 20 Mg Tab, 10 MG PO QHS, (Reported) Scheduled PRN Docusate Sodium (Docusate Sodium) 100 Mg Capsule, 100 MG PO BID PRN for CONSTIPATION, (Reported) Nitroglycerin (Nitrostat) 0.4 Mg Subl, 0.4 MG SL NITRO PRN for ANGINA, (Reported) Sennosides/Docusate Sodium (Senna Plus Tablet) 1 Each Tablet, 2 TAB PO QHS PRN for CONSTIPATION, (Reported) Ignacia Chaudhari Sep 18, 2020 14:35
[2020-09-18 20:00] VITALS: BP 146/78
[2020-09-18] MEDS ORDERED: BISACODYL 10 MG SUPP PR SCH (20:00)
[2020-09-18] MEDS: ASPIRIN 81MG ENTERIC TABLET PO SCH (20:25)
[2020-09-18] MEDS: SENNA 8.6 MG TAB (SENOKOT) PO SCH (20:25)
[2020-09-18] MEDS: TAMSULOSIN 0.4 MG CAP PO SCH (20:25)
[2020-09-18] MEDS: ROSUVASTATIN 10 MG TAB (CRESTOR) PO SCH (20:26)
[2020-09-18] MEDS: TELMISARTAN 20 MG TAB PO SCH (20:26)
[2020-09-19 05:17] VITALS: BP 165/78
[2020-09-19] MEDS: HumaLOG INSULIN (NovoLOG) PER UNIT SC SCH ×2 (07:16→12:00)
[2020-09-19] MEDS: MULTIVITAMINS/MINERALS THERAP 1 TAB PO SCH (08:15)
[2020-09-19] MEDS: PRIMIDONE 25MG PER 1/2 TABLET PO SCH ×2 (08:15→20:34)
[2020-09-19] MEDS: allopurinoL 100 MG TAB PO SCH (08:15)
[2020-09-19] MEDS: FUROSEMIDE 40 MG TAB PO SCH (08:15)
[2020-09-19] MEDS: FERROUS SULFATE 325MG TAB PO SCH ×2 (08:15→20:34)
[2020-09-19] MEDS: SIMETHICONE 80MG CHEW TAB PO SCH ×3 (08:15→20:35)
[2020-09-19] MEDS: SERTRALINE HCL 50 MG TAB PO SCH (08:15)
[2020-09-19] MEDS: OMEPRAZOLE 20 MG CAP PO SCH (08:15)
[2020-09-19] MEDS: ASCORBIC ACID 500 MG TAB PO SCH (08:16)
[2020-09-19] MEDS: ENOXAPARIN 40MG/0.4ML SYRINGE (J1650 PER 10MG) SC SCH (08:16)
[2020-09-19] MEDS: hydrOXYzine 10 MG TAB PO SCH ×2 (08:16→20:35)
[2020-09-19] MEDS: REMEDY PHYTOPLEX Z-GUARD PASTE 113GM TUBE (FROM STOREROOM PRODUCT) TOP SCH ×3 (08:17→20:35)
--- NOTE | 2020-09-19 08:51 | IPNPDOC ---
Text Note Date of Service The patient was seen on 09/19/20. NOTE General Surgery Dr Casey. The pt states that he had 2 BM yesterday that were liquid and then 2 that were "rabbit pellets". States eating and drinking, no nausea, vomiting, abdominal pain. PHYSICAL EXAMINATION: VSS, afebrile. GENERAL APPEARANCE: No acute distress, Appears comfortable HEENT: Moist mucous membranes ABDOMEN: Protuberant and still somewhat distended but soft, nontender, no guarding, rebound, grimacing. EXTREMITIES: No edema NEUROLOGICAL: Chronic right-sided weakness Psychiatric. Pleasant and cooperative ASSESSMENT/PLAN: Distention of stomach, small bowel and colon on imaging. The patient reports no abdominal discomfort or pain. No nausea or vomiting. He does have chronic fecal urgency and bowel incontinence, and loss of sensation and full control of the sphincter however this has been at his baseline according to the patient. The patient states he was started on iron supplement and bowel regimen and then he noticed loose watery stools. Prior to that his bowel movements had been at his baseline. He continues eating and drinking with no abdominal discomfort. The patient is reviewed and examined as per Dr. Casey this morning. Have discontinued Miralax and will also D/C colace and Senna, as bowel care may be contributing to his watery bowel movements. Will add Metamucil to see if bulking the stool helps him to pass it easier. The patient does not report symptoms indicating SBO or ileus. There is distention noted of the stomach, small bowel and colon on imaging however this can be multifactorial including the patient's reduced activity and mobility, chronic spinal cord issue, and use of CPAP at night. Continue regular diet. No surgical intervention recommended at this time, will sign off for now but recontact if needed. VS,Fishbone, I+O VS, Fishbone, I+O Vital Signs Date Time Temp Pulse Resp B/P (MAP) Pulse Ox O2 Delivery O2 Flow Rate FiO2 09/19/20 05:17 96.9 70 17 165/78 (107) 98 NIPPV (BIPAP/CPAP) I&O- Last 24 Hours up to 6 AM 09/19/20 06:00 Intake Total 410 ml Output Total 650 ml Balance -240 ml Ignacia Chaudhari Sep 19, 2020 08:51
[2020-09-19] MEDS: SPIRONOLACTONE 12.5MG PER 1/2 TABLET PO SCH (10:36)
[2020-09-19] MEDS: METAMUCIL (PSYLLIUM) PACKET PO SCH (10:36)
[2020-09-19 14:00] VITALS: BP 142/84
[2020-09-19 20:00] VITALS: BP 172/66
[2020-09-19] MEDS ORDERED: BISACODYL 10 MG SUPP PR SCH (20:00)
[2020-09-19] MEDS: ASPIRIN 81MG ENTERIC TABLET PO SCH (20:34)
[2020-09-19] MEDS: TAMSULOSIN 0.4 MG CAP PO SCH (20:34)
[2020-09-19] MEDS: ROSUVASTATIN 10 MG TAB (CRESTOR) PO SCH (20:34)
[2020-09-19] MEDS: SENNA 8.6 MG TAB (SENOKOT) PO SCH (20:35)
[2020-09-19] MEDS: TELMISARTAN 20 MG TAB PO SCH (20:35)
[2020-09-20 05:28] VITALS: BP 148/72
[2020-09-20] MEDS: SERTRALINE HCL 50 MG TAB PO SCH (09:24)
[2020-09-20] MEDS: allopurinoL 100 MG TAB PO SCH (09:25)
[2020-09-20] MEDS: OMEPRAZOLE 20 MG CAP PO SCH (09:25)
[2020-09-20] MEDS: ASCORBIC ACID 500 MG TAB PO SCH (09:25)
[2020-09-20] MEDS: SPIRONOLACTONE 12.5MG PER 1/2 TABLET PO SCH (09:25)
[2020-09-20] MEDS: PRIMIDONE 25MG PER 1/2 TABLET PO SCH ×2 (09:25→20:43)
[2020-09-20] MEDS: SIMETHICONE 80MG CHEW TAB PO SCH ×3 (09:25→20:43)
[2020-09-20] MEDS: FERROUS SULFATE 325MG TAB PO SCH ×2 (09:25→20:43)
[2020-09-20] MEDS: MULTIVITAMINS/MINERALS THERAP 1 TAB PO SCH (09:25)
[2020-09-20] MEDS: FUROSEMIDE 40 MG TAB PO SCH (09:25)
[2020-09-20] MEDS: ENOXAPARIN 40MG/0.4ML SYRINGE (J1650 PER 10MG) SC SCH (09:26)
[2020-09-20] MEDS: METAMUCIL (PSYLLIUM) PACKET PO SCH (09:26)
[2020-09-20] MEDS: hydrOXYzine 10 MG TAB PO SCH ×2 (09:26→20:43)
[2020-09-20] MEDS: REMEDY PHYTOPLEX Z-GUARD PASTE 113GM TUBE (FROM STOREROOM PRODUCT) TOP SCH ×3 (09:26→20:43)
[2020-09-20 14:00] VITALS: BP 151/69
[2020-09-20 14:58] LABS: BASO % 0.3 % (0.0-1.0); EOS # 0.2 10^3/uL (0.0-0.5); EOS % 3.2 % (0.0-3.0); HEMATOCRIT 26.7 % (42.0-52.0); HEMOGLOBIN 8.5 g/dl (13.5-17.5); LYMPH % 17.8 % (24.0-44.0); MEAN CORPUSCULAR HEMOGLOBIN 31.4 pg (27.0-33.0); MEAN CORPUSCULAR HGB CONC 31.8 g/dl (32.0-36.5); MEAN CORPUSCULAR VOLUME 98.5 fl (80.0-96.0); MONO # 0.6 10^3/uL (0.0-0.8); MONO % 10.3 % (2.0-8.0); NEUTROPHILS % 68.1 % (36.0-66.0); PLATELET COUNT, AUTOMATED 188 10^3/uL (150-450); RED BLOOD COUNT 2.71 10^6/uL (4.30-6.10); WHITE BLOOD COUNT 5.9 10^3/uL (4.0-10.0)
[2020-09-20 15:25] LABS: BLOOD UREA NITROGEN 36 MG/DL (7-18); CALCIUM LEVEL 8.4 MG/DL (8.8-10.2); CARBON DIOXIDE LEVEL 33 MEQ/L (21-32); CHLORIDE LEVEL 106 MEQ/L (98-107); CREATININE FOR GFR 1.22 MG/DL (0.70-1.30); GLOMERULAR FILTRATION RATE > 60.0 (>42); GLUCOSE, FASTING 159 MG/DL (70-100); POTASSIUM SERUM 4.4 MEQ/L (3.5-5.1); SODIUM LEVEL 140 MEQ/L (136-145)
[2020-09-20 20:00] VITALS: BP 160/93
[2020-09-20] MEDS: ROSUVASTATIN 10 MG TAB (CRESTOR) PO SCH (20:42)
[2020-09-20] MEDS: TELMISARTAN 20 MG TAB PO SCH (20:42)
[2020-09-20] MEDS: ASPIRIN 81MG ENTERIC TABLET PO SCH (20:42)
[2020-09-20] MEDS: SENNA 8.6 MG TAB (SENOKOT) PO SCH (20:43)
[2020-09-20] MEDS: TAMSULOSIN 0.4 MG CAP PO SCH (20:43)
[2020-09-21 06:08] VITALS: BP 160/90
[2020-09-21] MEDS: ENOXAPARIN 40MG/0.4ML SYRINGE (J1650 PER 10MG) SC SCH (09:09)
[2020-09-21] MEDS: SIMETHICONE 80MG CHEW TAB PO SCH ×3 (09:09→20:29)
[2020-09-21] MEDS: FUROSEMIDE 20 MG TAB PO SCH (09:09)
[2020-09-21] MEDS: METAMUCIL (PSYLLIUM) PACKET PO SCH (09:09)
[2020-09-21] MEDS: PRIMIDONE 25MG PER 1/2 TABLET PO SCH ×2 (09:09→20:29)
[2020-09-21] MEDS: MULTIVITAMINS/MINERALS THERAP 1 TAB PO SCH (09:10)
[2020-09-21] MEDS: FERROUS SULFATE 325MG TAB PO SCH ×2 (09:10→20:29)
[2020-09-21] MEDS: allopurinoL 100 MG TAB PO SCH (09:10)
[2020-09-21] MEDS: METOPROLOL TART 25 MG TABLET PO SCH ×2 (09:10→20:29)
[2020-09-21] MEDS: OMEPRAZOLE 20 MG CAP PO SCH (09:10)
[2020-09-21] MEDS: hydrOXYzine 10 MG TAB PO SCH ×2 (09:10→20:29)
[2020-09-21] MEDS: ASCORBIC ACID 500 MG TAB PO SCH (09:10)
[2020-09-21] MEDS: SERTRALINE HCL 50 MG TAB PO SCH (09:10)
[2020-09-21] MEDS: REMEDY PHYTOPLEX Z-GUARD PASTE 113GM TUBE (FROM STOREROOM PRODUCT) TOP SCH ×3 (09:11→20:29)
[2020-09-21 14:00] VITALS: BP 181/84
[2020-09-21 15:30] VITALS: BP 146/68
[2020-09-21 20:00] VITALS: BP 161/95
[2020-09-21] MEDS: TAMSULOSIN 0.4 MG CAP PO SCH (20:29)
[2020-09-21] MEDS: SENNA 8.6 MG TAB (SENOKOT) PO SCH (20:29)
[2020-09-21] MEDS: ASPIRIN 81MG ENTERIC TABLET PO SCH (20:29)
[2020-09-21] MEDS: ROSUVASTATIN 10 MG TAB (CRESTOR) PO SCH (20:29)
[2020-09-22 05:43] VITALS: BP 159/85
[2020-09-22 07:59] LABS: BLOOD UREA NITROGEN 29 MG/DL (7-18); CALCIUM LEVEL 9.2 MG/DL (8.8-10.2); CARBON DIOXIDE LEVEL 34 MEQ/L (21-32); CHLORIDE LEVEL 105 MEQ/L (98-107); CREATININE FOR GFR 0.99 MG/DL (0.70-1.30); GLOMERULAR FILTRATION RATE > 60.0 (>42); GLUCOSE, FASTING 108 MG/DL (70-100); POTASSIUM SERUM 4.4 MEQ/L (3.5-5.1); SODIUM LEVEL 141 MEQ/L (136-145)
[2020-09-22] MEDS: REMEDY PHYTOPLEX Z-GUARD PASTE 113GM TUBE (FROM STOREROOM PRODUCT) TOP SCH ×3 (09:00→20:47)
[2020-09-22] MEDS: ENOXAPARIN 40MG/0.4ML SYRINGE (J1650 PER 10MG) SC SCH (09:05)
[2020-09-22] MEDS: hydrOXYzine 10 MG TAB PO SCH ×2 (09:05→20:46)
[2020-09-22] MEDS: ASCORBIC ACID 500 MG TAB PO SCH (09:05)
[2020-09-22] MEDS: OMEPRAZOLE 20 MG CAP PO SCH (09:05)
[2020-09-22] MEDS: FERROUS SULFATE 325MG TAB PO SCH ×2 (09:05→20:45)
[2020-09-22] MEDS: MULTIVITAMINS/MINERALS THERAP 1 TAB PO SCH (09:05)
[2020-09-22] MEDS: FUROSEMIDE 20 MG TAB PO SCH (09:06)
[2020-09-22] MEDS: SERTRALINE HCL 50 MG TAB PO SCH (09:06)
[2020-09-22] MEDS: METAMUCIL (PSYLLIUM) PACKET PO SCH (09:06)
[2020-09-22] MEDS: SIMETHICONE 80MG CHEW TAB PO SCH ×3 (09:06→20:46)
[2020-09-22] MEDS: METOPROLOL TART 25 MG TABLET PO SCH ×2 (09:06→20:46)
[2020-09-22] MEDS: allopurinoL 100 MG TAB PO SCH (09:06)
[2020-09-22] MEDS: PRIMIDONE 25MG PER 1/2 TABLET PO SCH ×2 (09:06→20:45)
[2020-09-22 14:00] VITALS: BP 118/59
[2020-09-22 20:00] VITALS: BP 152/72
[2020-09-22] MEDS: TAMSULOSIN 0.4 MG CAP PO SCH (20:45)
[2020-09-22] MEDS: ROSUVASTATIN 10 MG TAB (CRESTOR) PO SCH (20:46)
[2020-09-22] MEDS: SENNA 8.6 MG TAB (SENOKOT) PO SCH (20:46)
[2020-09-22] MEDS: ASPIRIN 81MG ENTERIC TABLET PO SCH (20:46)
[2020-09-23 06:00] VITALS: BP 172/72
[2020-09-23 06:52] VITALS: BP 156/74
[2020-09-23 07:39] LABS: BASO % 0.5 % (0.0-1.0); EOS # 0.2 10^3/uL (0.0-0.5); HEMATOCRIT 29.6 % (42.0-52.0); HEMOGLOBIN 9.3 g/dl (13.5-17.5); LYMPH # 1.2 10^3/uL (1.5-5.0); LYMPH % 20.6 % (24.0-44.0); MEAN CORPUSCULAR HGB CONC 31.4 g/dl (32.0-36.5); MEAN CORPUSCULAR VOLUME 98.7 fl (80.0-96.0); MONO # 0.6 10^3/uL (0.0-0.8); NEUTROPHILS # 3.7 10^3/uL (1.5-8.5); NEUTROPHILS % 64.7 % (36.0-66.0); PLATELET COUNT, AUTOMATED 226 10^3/uL (150-450); WHITE BLOOD COUNT 5.7 10^3/uL (4.0-10.0)
[2020-09-23 08:01] LABS: BLOOD UREA NITROGEN 32 MG/DL (7-18); CALCIUM LEVEL 9.2 MG/DL (8.8-10.2); CARBON DIOXIDE LEVEL 33 MEQ/L (21-32); CHLORIDE LEVEL 104 MEQ/L (98-107); CREATININE FOR GFR 0.97 MG/DL (0.70-1.30); GLOMERULAR FILTRATION RATE > 60.0 (>42); GLUCOSE, FASTING 140 MG/DL (70-100); POTASSIUM SERUM 4.3 MEQ/L (3.5-5.1); SODIUM LEVEL 141 MEQ/L (136-145)
[2020-09-23] MEDS: SIMETHICONE 80MG CHEW TAB PO SCH ×3 (09:29→21:23)
[2020-09-23] MEDS: METOPROLOL TART 25 MG TABLET PO SCH (09:29)
[2020-09-23] MEDS: SERTRALINE HCL 50 MG TAB PO SCH (09:29)
[2020-09-23] MEDS: PRIMIDONE 25MG PER 1/2 TABLET PO SCH ×2 (09:29→21:23)
[2020-09-23] MEDS: ASCORBIC ACID 500 MG TAB PO SCH (09:30)
[2020-09-23] MEDS: allopurinoL 100 MG TAB PO SCH (09:30)
[2020-09-23] MEDS: OMEPRAZOLE 20 MG CAP PO SCH (09:30)
[2020-09-23] MEDS: FUROSEMIDE 20 MG TAB PO SCH (09:30)
[2020-09-23] MEDS: FERROUS SULFATE 325MG TAB PO SCH ×2 (09:30→21:24)
[2020-09-23] MEDS: hydrOXYzine 10 MG TAB PO SCH ×2 (09:30→21:23)
[2020-09-23] MEDS: METAMUCIL (PSYLLIUM) PACKET PO SCH (09:30)
[2020-09-23] MEDS: MULTIVITAMINS/MINERALS THERAP 1 TAB PO SCH (09:30)
[2020-09-23] MEDS: REMEDY PHYTOPLEX Z-GUARD PASTE 113GM TUBE (FROM STOREROOM PRODUCT) TOP SCH ×3 (09:31→21:00)
[2020-09-23] MEDS: ENOXAPARIN 40MG/0.4ML SYRINGE (J1650 PER 10MG) SC SCH (09:31)
--- NOTE | 2020-09-23 11:08 | IPNPDOC ---
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 REVIEW OF SYSTEMS: The following is a completed review of systems and has been reviewed. Review of systems otherwise unremarkable. PAIN: Patient self reports no pain EYES: No recent vision changes EARS, NOSE, & THROAT: No throat pain, or dysphagia, or rhinorrhea CARDIOVASCULAR: Denies chest pain or palpitations PULMONARY: Denies shortness of breath GASTROINTESTINAL: +fecal incontinence GENITOURINARY: denies dysuria MUSCULOSKELETAL: right sided weakness NEUROLOGICAL:right sided paresis and paresthesias HEMATOLOGICAL: denies easy bruising SKIN: denies rash PSYCHIATRIC: Unremarkable All other review of systems found to be negative. PHYSICAL EXAMINATION: VITAL SIGNS: Please see below. GENERAL: Pleasant and cooperative. No acute distress. HEENT: PERRL. Extraocular movements intact. Clear conjunctiva CARDIOVASCULAR: Regular rate and rhythm. No murmurs, rubs, or gallops LUNGS: Clear to auscultation bilaterally. No wheezes. No rhonchi ABDOMEN: distended, no guarding, no TTP, Positive bowel sounds NEUROLOGICAL: Alert and oriented times three. Cranial nerves II through XII grossly intact. +babinski bilat (decreased sensation to light touch bilat LE in stocking pattern and diffusely RUE) EXTREMITIES: 5-\5 strength right upper extremities. 5/5 LUE, 5\5 strength right lower extremity. 5/5 strength in left lower extremity. +bilat LE edema SKIN: intact ASSESSMENT:70-year-old M with past medical history of syrinx who presents status post worsenign right sided weakness and gait instability with extension of his syrinx don to T9 PLAN: 1. Rehab- PT/OT advance mobilty and ADl- strengthen/stretch/maintain ROM all 4 limbs 2. 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 CArdiac- hx of chronic diastolic CHF- fluid restrict, daily weights, lasix, will add spironolactone due to LE edema and weight gain, while monitoring kidney function, medicine consulted to assist in overall management -HLD c/u statin -HTN c/u BP meds ,adjust prn -medicine consulted to assist in overall management 4 resp- hx of LIANNA on CPAP 5. endo- DM with hypoglycemia, hold oral agents, c/u ISS, may d/c if continues to have low blood glucose levels due to risk of falls at home 6. DVT ppx- lovenox 7. GI- c/u prilosec for ppx -KUB 09-17-20 ordered to rule out fecal retention in setting of neurogenic bowel, showing ileus vs SBO- case discussed with general surgery who recommends d/cing bowel meds and to start to use metamucil to bulk up stool to avoid incontinence- recs appreciated 8. Heme- iron deficincey anemia, c/u supplement 9. Psych- hx of depression, c/u zoloft and atarax 10. - monitor PVRs, c/u flomax 11. DIspo- tbd Allergies Coded Allergies: lisinopril (Verified Adverse Reaction, Intermediate, HYPOTENSION, 01/18/20) metformin (Verified Adverse Reaction, Intermediate, LOWERS KIDNEY FUNCTON, 01/18/20) finasteride (Verified Adverse Reaction, Unknown, DIZZINESS, 07/16/20) Vital Signs Vital Signs Date Time Temp Pulse Resp B/P (MAP) Pulse Ox O2 Delivery O2 Flow Rate FiO2 09/23/20 09:29 63 156/74 09/23/20 06:00 97.9 18 94 Room Air Laboratory Data CBC/BMP Laboratory Tests 09/23/20 07:25 Labs 24H Laboratory Tests 2 09/22/20 16:31: Bedside Glucose (Misc Panel) 141H 09/22/20 19:56: Bedside Glucose (Misc Panel) 130H 09/23/20 05:16: Bedside Glucose (Misc Panel) 118H 09/23/20 07:25: Immature Granulocyte % (Auto) 0.2, Neutrophils (%) (Auto) 64.7, Lymphocytes (%) (Auto) 20.6L, Monocytes (%) (Auto) 11.0H, Eosinophils (%) (Auto) 3.0, Basophils (%) (Auto) 0.5, Neutrophils # (Auto) 3.7, Lymphocytes # (Auto) 1.2L, Monocytes # (Auto) 0.6, Eosinophils # (Auto) 0.2, Basophils # (Auto) 0.0, Nucleated Red Blood Cells % (auto) 0.0, Anion Gap 4L, Glomerular Filtration Rate > 60.0, Calcium Level 9.2 Current Medications Current Medications Current Medications Medications (Trade) Dose Ordered Sig/Imelda Route PRN Reason Start Time Stop Time Status Last Admin Dose Admin Acetaminophen (Tylenol Tab) 650 mg Q4HP PRN PO fever/MILD PAIN (PS 1-4) 09/16/20 16:10 Allopurinol (Zyloprim) 100 mg DAILY PO 09/17/20 09:00 09/23/20 09:30 Ascorbic Acid (Vitamin C) 1,000 mg DAILY PO 09/17/20 09:00 09/23/20 09:30 Aspirin (Ecotrin) 81 mg QHS PO 09/16/20 21:00 09/22/20 20:46 Bisacodyl (Dulcolax Suppository) 10 mg DAILY@1999 [place] 09/18/20 20:00 09/18/20 20:37 DC Bisacodyl (Dulcolax Suppository) 10 mg DAILY@1999 [place] 09/19/20 20:00 09/19/20 08:09 DC Dextrose (Dextrose 50%) 25 ml ASDIRECTED PRN IV SEE LABEL COMMENTS 09/16/20 16:10 Dextrose/Sodium Chloride 1,000 ml @ 60 mls/hr [id number] IV 09/18/20 00:30 09/18/20 10:18 DC 09/18/20 00:52 Docusate Sodium (Colace) 100 mg BID PO 09/16/20 21:00 09/19/20 08:09 DC 09/18/20 20:25 Enoxaparin Sodium (Lovenox) 40 mg DAILY SC 09/17/20 09:00 09/23/20 09:31 Ferrous Sulfate (Ferrous Sulfate) 325 mg BID PO 09/16/20 21:00 09/23/20 09:30 Furosemide (Lasix) 20 mg DAILY PO 09/21/20 09:00 09/23/20 09:30 Furosemide (Lasix) 40 mg DAILY PO 09/17/20 09:00 09/21/20 08:40 DC 09/20/20 09:25 Glucagon (Glucagon) 1 mg ASDIRECTED PRN SC SEE LABEL COMMENTS 09/16/20 16:10 Glucose (Glucose) 16 GM ASDIRECTED PRN PO SEE LABEL COMMENTS 09/16/20 16:10 Hydroxyzine HCl (Atarax) 10 mg BID PO 09/16/20 21:00 09/23/20 09:30 Insulin Human Lispro (HumaLOG INSULIN) SEE PROTOCOL TABLE AC SC 09/17/20 07:30 09/19/20 13:07 DC 09/18/20 17:06 Insulin Human Lispro (HumaLOG INSULIN) SEE PROTOCOL TABLE QHS SC 09/16/20 21:00 09/19/20 13:07 DC Metoprolol Tartrate (Lopressor) 25 mg BID PO 09/21/20 09:00 09/23/20 09:29 Multivitamins (Theragram-M) 1 tab DAILY PO 09/17/20 09:00 09/23/20 09:30 Nitroglycerin (Nitrostat (1/ 150)) 0.4 mg Q5MP PRN SL CHEST PAIN 09/16/20 16:10 Omeprazole (PriLOSEC) 40 mg DAILY PO 09/17/20 09:00 09/23/20 09:30 Polyethylene Glycol (Miralax) 1 pkt DAILY PRN PO CONSTIPATION 09/16/20 16:10 09/18/20 09:41 DC Primidone (Mysoline) 25 mg BID PO 09/16/20 21:00 09/23/20 09:29 Psyllium Hydrophilic Mucilloid (Metamucil) 1 pkt DAILY PO 09/19/20 09:00 09/23/20 09:30 Rosuvastatin Calcium (Crestor) 20 mg QHS PO 09/16/20 21:00 09/22/20 20:46 Senna (Senokot) 1 tab QHS PO 09/16/20 21:00 09/22/20 20:46 Sertraline HCl (Zoloft) 50 mg DAILY PO 09/17/20 09:00 09/23/20 09:29 Simethicone (Mylicon) 80 mg TID PO 09/17/20 16:00 09/23/20 09:29 Sodium Chloride 1,000 ml @ 60 mls/hr [id number] IV 09/17/20 19:30 09/18/20 00:31 DC 09/17/20 19:47 Spironolactone (Aldactone) 12.5 mg DAILY PO 09/19/20 09:00 09/21/20 08:40 DC 09/20/20 09:25 Tamsulosin HCl (Flomax) 0.4 mg QHS PO 09/16/20 21:00 09/22/20 20:45 Telmisartan (Micardis) 10 mg QHS PO 09/16/20 21:00 09/21/20 08:43 DC 09/20/20 20:42 LV HEREDIA MD Sep 23, 2020 11:08
--- NOTE | 2020-09-23 11:08 | IPNPDOC ---
PM&R Progress Note DATE OF SERVICE: Sep 23, 2020 [employer] Investigator Progress Note Subjective: Patient stating he is concerned his blood pressure has been higher than at home. He otherwise reports he is feeling well. REVIEW OF SYSTEMS: The following is a completed review of systems and has been reviewed. Review of systems otherwise unremarkable. PAIN: Patient self reports no pain EYES: No recent vision changes EARS, NOSE, & THROAT: No throat pain, or dysphagia, or rhinorrhea CARDIOVASCULAR: Denies chest pain or palpitations PULMONARY: Denies shortness of breath GASTROINTESTINAL: +fecal incontinence GENITOURINARY: denies dysuria MUSCULOSKELETAL: right sided weakness NEUROLOGICAL:right sided paresis and paresthesias HEMATOLOGICAL: denies easy bruising SKIN: denies rash PSYCHIATRIC: Unremarkable All other review of systems found to be negative. PHYSICAL EXAMINATION: VITAL SIGNS: Please see below. GENERAL: Pleasant and cooperative. No acute distress. HEENT: PERRL. Extraocular movements intact. Clear conjunctiva CARDIOVASCULAR: Regular rate and rhythm. No murmurs, rubs, or gallops LUNGS: Clear to auscultation bilaterally. No wheezes. No rhonchi ABDOMEN: distended, no guarding, no TTP, Positive bowel sounds NEUROLOGICAL: Alert and oriented times three. Cranial nerves II through XII grossly intact. +babinski bilat (decreased sensation to light touch bilat LE in stocking pattern and diffusely RUE) EXTREMITIES: 5-\5 strength right upper extremities. 5/5 LUE, 5\5 strength right lower extremity. 5/5 strength in left lower extremity. +bilat LE edema SKIN: intact ASSESSMENT:70-year-old M with past medical history of syrinx who presents status post worsenign right sided weakness and gait instability with extension of his syrinx don to T9 PLAN: 1. Rehab- PT/OT advance mobilty and ADl- strengthen/stretch/maintain ROM all 4 limbs- ambulating with RW 2. 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 CArdiac- hx of chronic diastolic CHF- fluid restrict, daily weights, lasix dose lowered and aldactone stopped as C Consultant starting to increase over the weekend -HLD c/u statin -HTN c/u BP meds, added metoprolol over weekend for elevated BPs, however will increase to 50mg BID -medicine consulted to assist in overall management 4 resp- hx of LIANNA on CPAP 5. endo- DM with hypoglycemia, hold oral agents, c/u ISS, glucose levels due to risk of falls at home 6. DVT ppx- lovenox 7. GI- c/u prilosec for ppx -KUB 09-17-20 ordered to rule out fecal retention in setting of neurogenic bowel, showing ileus vs SBO- case discussed with general surgery who recommends d/cing bowel meds and to start to use metamucil to bulk up stool to avoid incontinence- recs appreciated 8. Heme- iron deficincey anemia, c/u supplement 9. Psych- hx of depression, c/u zoloft and atarax 10. - monitor PVRs, c/u flomax 11. DIspo- tbd Allergies Coded Allergies: lisinopril (Verified Adverse Reaction, Intermediate, HYPOTENSION, 01/18/20) metformin (Verified Adverse Reaction, Intermediate, LOWERS KIDNEY FUNCTON, 01/18/20) finasteride (Verified Adverse Reaction, Unknown, DIZZINESS, 07/16/20) Vital Signs Vital Signs Date Time Temp Pulse Resp B/P (MAP) Pulse Ox O2 Delivery O2 Flow Rate FiO2 09/23/20 09:29 63 156/74 09/23/20 06:00 97.9 18 94 Room Air Laboratory Data CBC/BMP Laboratory Tests 09/23/20 07:25 Labs 24H Laboratory Tests 2 09/22/20 16:31: Bedside Glucose (Misc Panel) 141H 09/22/20 19:56: Bedside Glucose (Misc Panel) 130H 09/23/20 05:16: Bedside Glucose (Misc Panel) 118H 09/23/20 07:25: Immature Granulocyte % (Auto) 0.2, Neutrophils (%) (Auto) 64.7, Lymphocytes (%) (Auto) 20.6L, Monocytes (%) (Auto) 11.0H, Eosinophils (%) (Auto) 3.0, Basophils (%) (Auto) 0.5, Neutrophils # (Auto) 3.7, Lymphocytes # (Auto) 1.2L, Monocytes # (Auto) 0.6, Eosinophils # (Auto) 0.2, Basophils # (Auto) 0.0, Nucleated Red Blood Cells % (auto) 0.0, Anion Gap 4L, Glomerular Filtration Rate > 60.0, Calcium Level 9.2 Current Medications Current Medications Current Medications Medications (Trade) Dose Ordered Sig/Imelda Route PRN Reason Start Time Stop Time Status Last Admin Dose Admin Acetaminophen (Tylenol Tab) 650 mg Q4HP PRN PO fever/MILD PAIN (PS 1-4) 09/16/20 16:10 Allopurinol (Zyloprim) 100 mg DAILY PO 09/17/20 09:00 09/23/20 09:30 Ascorbic Acid (Vitamin C) 1,000 mg DAILY PO 09/17/20 09:00 09/23/20 09:30 Aspirin (Ecotrin) 81 mg QHS PO 09/16/20 21:00 09/22/20 20:46 Bisacodyl (Dulcolax Suppository) 10 mg DAILY@1999 [place] 09/18/20 20:00 09/18/20 20:37 DC Bisacodyl (Dulcolax Suppository) 10 mg DAILY@1999 [place] 09/19/20 20:00 09/19/20 08:09 DC Dextrose (Dextrose 50%) 25 ml ASDIRECTED PRN IV SEE LABEL COMMENTS 09/16/20 16:10 Dextrose/Sodium Chloride 1,000 ml @ 60 mls/hr [id number] IV 09/18/20 00:30 09/18/20 10:18 DC 09/18/20 00:52 Docusate Sodium (Colace) 100 mg BID PO 09/16/20 21:00 09/19/20 08:09 DC 09/18/20 20:25 Enoxaparin Sodium (Lovenox) 40 mg DAILY SC 09/17/20 09:00 09/23/20 09:31 Ferrous Sulfate (Ferrous Sulfate) 325 mg BID PO 09/16/20 21:00 09/23/20 09:30 Furosemide (Lasix) 20 mg DAILY PO 09/21/20 09:00 09/23/20 09:30 Furosemide (Lasix) 40 mg DAILY PO 09/17/20 09:00 09/21/20 08:40 DC 09/20/20 09:25 Glucagon (Glucagon) 1 mg ASDIRECTED PRN SC SEE LABEL COMMENTS 09/16/20 16:10 Glucose (Glucose) 16 GM ASDIRECTED PRN PO SEE LABEL COMMENTS 09/16/20 16:10 Hydroxyzine HCl (Atarax) 10 mg BID PO 09/16/20 21:00 09/23/20 09:30 Insulin Human Lispro (HumaLOG INSULIN) SEE PROTOCOL TABLE AC SC 09/17/20 07:30 09/19/20 13:07 DC 09/18/20 17:06 Insulin Human Lispro (HumaLOG INSULIN) SEE PROTOCOL TABLE QHS SC 09/16/20 21:00 09/19/20 13:07 DC Metoprolol Tartrate (Lopressor) 25 mg BID PO 09/21/20 09:00 09/23/20 09:29 Multivitamins (Theragram-M) 1 tab DAILY PO 09/17/20 09:00 09/23/20 09:30 Nitroglycerin (Nitrostat (1/ 150)) 0.4 mg Q5MP PRN SL CHEST PAIN 09/16/20 16:10 Omeprazole (PriLOSEC) 40 mg DAILY PO 09/17/20 09:00 09/23/20 09:30 Polyethylene Glycol (Miralax) 1 pkt DAILY PRN PO CONSTIPATION 09/16/20 16:10 09/18/20 09:41 DC Primidone (Mysoline) 25 mg BID PO 09/16/20 21:00 09/23/20 09:29 Psyllium Hydrophilic Mucilloid (Metamucil) 1 pkt DAILY PO 09/19/20 09:00 09/23/20 09:30 Rosuvastatin Calcium (Crestor) 20 mg QHS PO 09/16/20 21:00 09/22/20 20:46 Senna (Senokot) 1 tab QHS PO 09/16/20 21:00 09/22/20 20:46 Sertraline HCl (Zoloft) 50 mg DAILY PO 09/17/20 09:00 09/23/20 09:29 Simethicone (Mylicon) 80 mg TID PO 09/17/20 16:00 09/23/20 09:29 Sodium Chloride 1,000 ml @ 60 mls/hr [id number] IV 09/17/20 19:30 09/18/20 00:31 DC 09/17/20 19:47 Spironolactone (Aldactone) 12.5 mg DAILY PO 09/19/20 09:00 09/21/20 08:40 DC 09/20/20 09:25 Tamsulosin HCl (Flomax) 0.4 mg QHS PO 09/16/20 21:00 09/22/20 20:45 Telmisartan (Micardis) 10 mg QHS PO 09/16/20 21:00 09/21/20 08:43 DC 09/20/20 20:42 VL HEREDIA MD Sep 23, 2020 11:08
[2020-09-23 20:00] VITALS: BP 145/75
[2020-09-23] MEDS: ASPIRIN 81MG ENTERIC TABLET PO SCH (21:23)
[2020-09-23] MEDS: TAMSULOSIN 0.4 MG CAP PO SCH (21:23)
[2020-09-23] MEDS: SENNA 8.6 MG TAB (SENOKOT) PO SCH (21:23)
[2020-09-23] MEDS: METOPROLOL TART 50 MG TAB PO SCH (21:24)
[2020-09-23] MEDS: ROSUVASTATIN 10 MG TAB (CRESTOR) PO SCH (21:24)
[2020-09-24 06:00] VITALS: BP 136/86
[2020-09-24] MEDS: SERTRALINE HCL 50 MG TAB PO SCH (08:56)
[2020-09-24] MEDS: FERROUS SULFATE 325MG TAB PO SCH ×2 (08:56→20:18)
[2020-09-24] MEDS: FUROSEMIDE 20 MG TAB PO SCH (08:56)
[2020-09-24] MEDS: MULTIVITAMINS/MINERALS THERAP 1 TAB PO SCH (08:56)
[2020-09-24] MEDS: OMEPRAZOLE 20 MG CAP PO SCH (08:56)
[2020-09-24] MEDS: METOPROLOL TART 50 MG TAB PO SCH ×2 (08:56→20:18)
[2020-09-24] MEDS: hydrOXYzine 10 MG TAB PO SCH ×2 (08:56→20:18)
[2020-09-24] MEDS: ASCORBIC ACID 500 MG TAB PO SCH (08:57)
[2020-09-24] MEDS: PRIMIDONE 25MG PER 1/2 TABLET PO SCH ×2 (08:57→20:18)
[2020-09-24] MEDS: SIMETHICONE 80MG CHEW TAB PO SCH ×3 (08:57→20:18)
[2020-09-24] MEDS: METAMUCIL (PSYLLIUM) PACKET PO SCH (08:57)
[2020-09-24] MEDS: REMEDY PHYTOPLEX Z-GUARD PASTE 113GM TUBE (FROM STOREROOM PRODUCT) TOP SCH ×3 (08:57→20:18)
[2020-09-24] MEDS: allopurinoL 100 MG TAB PO SCH (08:57)
[2020-09-24 14:00] VITALS: BP 141/65
[2020-09-24 20:00] VITALS: BP 161/71
[2020-09-24] MEDS: SENNA 8.6 MG TAB (SENOKOT) PO SCH (20:17)
[2020-09-24] MEDS: ASPIRIN 81MG ENTERIC TABLET PO SCH (20:18)
[2020-09-24] MEDS: TAMSULOSIN 0.4 MG CAP PO SCH (20:18)
[2020-09-24] MEDS: ROSUVASTATIN 10 MG TAB (CRESTOR) PO SCH (20:18)
[2020-09-25 06:00] VITALS: BP 159/74
[2020-09-25 08:23] LABS: BASO % 0.3 % (0.0-1.0); EOS # 0.1 10^3/uL (0.0-0.5); EOS % 2.2 % (0.0-3.0); HEMATOCRIT 29.1 % (42.0-52.0); HEMOGLOBIN 9.1 g/dl (13.5-17.5); LYMPH # 1.1 10^3/uL (1.5-5.0); LYMPH % 17.2 % (24.0-44.0); MEAN CORPUSCULAR HEMOGLOBIN 31.3 pg (27.0-33.0); MEAN CORPUSCULAR HGB CONC 31.3 g/dl (32.0-36.5); MONO # 0.6 10^3/uL (0.0-0.8); MONO % 10.1 % (2.0-8.0); NEUTROPHILS # 4.4 10^3/uL (1.5-8.5); NEUTROPHILS % 69.9 % (36.0-66.0); PLATELET COUNT, AUTOMATED 220 10^3/uL (150-450); RED BLOOD COUNT 2.91 10^6/uL (4.30-6.10); WHITE BLOOD COUNT 6.3 10^3/uL (4.0-10.0)
[2020-09-25 08:47] LABS: BLOOD UREA NITROGEN 39 MG/DL (7-18); CALCIUM LEVEL 8.8 MG/DL (8.8-10.2); CARBON DIOXIDE LEVEL 32 MEQ/L (21-32); CHLORIDE LEVEL 104 MEQ/L (98-107); CREATININE FOR GFR 1.07 MG/DL (0.70-1.30); GLOMERULAR FILTRATION RATE > 60.0 (>42); GLUCOSE, FASTING 103 MG/DL (70-100); POTASSIUM SERUM 5.1 MEQ/L (3.5-5.1); SODIUM LEVEL 139 MEQ/L (136-145)
[2020-09-25] MEDS: METOPROLOL TART 50 MG TAB PO SCH ×2 (09:00→20:18)
[2020-09-25] MEDS: REMEDY PHYTOPLEX Z-GUARD PASTE 113GM TUBE (FROM STOREROOM PRODUCT) TOP SCH ×3 (09:00→20:19)
[2020-09-25] MEDS: FUROSEMIDE 20 MG TAB PO SCH (09:00)
[2020-09-25 09:08] VITALS: BP 103/47
[2020-09-25] MEDS: FERROUS SULFATE 325MG TAB PO SCH ×2 (09:10→20:18)
[2020-09-25] MEDS: PRIMIDONE 25MG PER 1/2 TABLET PO SCH ×2 (09:10→20:18)
[2020-09-25] MEDS: allopurinoL 100 MG TAB PO SCH (09:10)
[2020-09-25] MEDS: MULTIVITAMINS/MINERALS THERAP 1 TAB PO SCH (09:10)
[2020-09-25] MEDS: hydrOXYzine 10 MG TAB PO SCH ×2 (09:10→20:18)
[2020-09-25] MEDS: SERTRALINE HCL 50 MG TAB PO SCH (09:10)
[2020-09-25] MEDS: SIMETHICONE 80MG CHEW TAB PO SCH ×3 (09:11→20:17)
[2020-09-25] MEDS: OMEPRAZOLE 20 MG CAP PO SCH (09:11)
[2020-09-25] MEDS: ASCORBIC ACID 500 MG TAB PO SCH (09:11)
[2020-09-25] MEDS: METAMUCIL (PSYLLIUM) PACKET PO SCH (09:11)
[2020-09-25] MEDS ORDERED: FERR1TAB8 PO (12:18)
[2020-09-25] MEDS ORDERED: FLOM0.4C39 PO (12:18)
[2020-09-25] MEDS ORDERED: ASPI81TA26 PO (12:18)
[2020-09-25] MEDS ORDERED: FURO40TA2 PO (12:18)
[2020-09-25] MEDS ORDERED: PRIM50TA6 PO (12:18)
[2020-09-25] MEDS ORDERED: CRES20TA2 PO (12:18)
[2020-09-25] MEDS ORDERED: ALLO10TA PO (12:18)
[2020-09-25] MEDS ORDERED: SERT50TA29 PO (12:18)
[2020-09-25] MEDS ORDERED: LOPR1TAB6 PO (12:18)
[2020-09-25] MEDS ORDERED: HYDR-643 PO (12:18)
[2020-09-25] MEDS ORDERED: OMEP-358 PO (12:18)
[2020-09-25 14:00] VITALS: BP 165/72
[2020-09-25 20:00] VITALS: BP 160/78
[2020-09-25] MEDS: ROSUVASTATIN 10 MG TAB (CRESTOR) PO SCH (20:17)
[2020-09-25 20:18] VITALS: BP 160/78
[2020-09-25] MEDS: ASPIRIN 81MG ENTERIC TABLET PO SCH (20:18)
[2020-09-25] MEDS: TAMSULOSIN 0.4 MG CAP PO SCH (20:18)
[2020-09-25] MEDS: SENNA 8.6 MG TAB (SENOKOT) PO SCH (20:18)
[2020-09-26 05:46] VITALS: BP 150/73
[2020-09-26] MEDS: PRIMIDONE 25MG PER 1/2 TABLET PO SCH (08:54)
[2020-09-26] MEDS: SIMETHICONE 80MG CHEW TAB PO SCH (08:54)
[2020-09-26] MEDS: METOPROLOL TART 50 MG TAB PO SCH (08:54)
[2020-09-26] MEDS: OMEPRAZOLE 20 MG CAP PO SCH (08:54)
[2020-09-26] MEDS: SERTRALINE HCL 50 MG TAB PO SCH (08:54)
[2020-09-26] MEDS: FUROSEMIDE 20 MG TAB PO SCH (08:55)
[2020-09-26] MEDS: FERROUS SULFATE 325MG TAB PO SCH (08:55)
[2020-09-26] MEDS: allopurinoL 100 MG TAB PO SCH (08:55)
[2020-09-26] MEDS: ASCORBIC ACID 500 MG TAB PO SCH (08:55)
[2020-09-26] MEDS: METAMUCIL (PSYLLIUM) PACKET PO SCH (08:55)
[2020-09-26] MEDS: hydrOXYzine 10 MG TAB PO SCH (08:56)
[2020-09-26] MEDS: REMEDY PHYTOPLEX Z-GUARD PASTE 113GM TUBE (FROM STOREROOM PRODUCT) TOP SCH (09:00)
[2020-09-26] MEDS: MULTIVITAMINS/MINERALS THERAP 1 TAB PO SCH (09:00)
--- NOTE | 2020-09-26 12:21 | IPNPDOC ---
PM&R Progress Note DATE OF SERVICE: Sep 24, 2020 Key Account Coordinator Progress Note Subjective: Patient seen in his room with his stating he feels ready for room privileges. REVIEW OF SYSTEMS: The following is a completed review of systems and has been reviewed. Review of systems otherwise unremarkable. PAIN: Patient self reports no pain EYES: No recent vision changes EARS, NOSE, & THROAT: No throat pain, or dysphagia, or rhinorrhea CARDIOVASCULAR: Denies chest pain or palpitations PULMONARY: Denies shortness of breath GASTROINTESTINAL: +fecal incontinence GENITOURINARY: denies dysuria MUSCULOSKELETAL: right sided weakness NEUROLOGICAL:right sided paresis and paresthesias HEMATOLOGICAL: denies easy bruising SKIN: denies rash PSYCHIATRIC: Unremarkable All other review of systems found to be negative. PHYSICAL EXAMINATION: VITAL SIGNS: Please see below. GENERAL: Pleasant and cooperative. No acute distress. HEENT: PERRL. Extraocular movements intact. Clear conjunctiva CARDIOVASCULAR: Regular rate and rhythm. No murmurs, rubs, or gallops LUNGS: Clear to auscultation bilaterally. No wheezes. No rhonchi ABDOMEN: distended, no guarding, no TTP, Positive bowel sounds NEUROLOGICAL: Alert and oriented times three. Cranial nerves II through XII grossly intact. +babinski bilat (decreased sensation to light touch bilat LE in stocking pattern and diffusely RUE) EXTREMITIES: 5-\5 strength right upper extremities. 5/5 LUE, 5\5 strength right lower extremity. 5/5 strength in left lower extremity. +bilat LE edema SKIN: intact ASSESSMENT:70-year-old M with past medical history of syrinx who presents status post worsenign right sided weakness and gait instability with extension of his syrinx don to T9 PLAN: 1. Rehab- PT/OT advance mobilty and ADl- strengthen/stretch/maintain ROM all 4 limbs- ambulating with RW, room privileges 2. 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 CArdiac- hx of chronic diastolic CHF- fluid restrict, daily weights, lasix dose lowered and aldactone stopped as Airplane Dispatch Clerk starting to increase over the weekend -HLD c/u statin -HTN c/u BP meds, added metoprolol over weekend for elevated BPs, however will increase to 50mg BID -medicine consulted to assist in overall management 4 resp- hx of LIANNA on CPAP 5. endo- DM with hypoglycemia, hold oral agents, c/u ISS, glucose levels due to risk of falls at home 6. DVT ppx- lovenox 7. GI- c/u prilosec for ppx -KUB 09-17-20 ordered to rule out fecal retention in setting of neurogenic bowel, showing ileus vs SBO- case discussed with general surgery who recommends d/cing bowel meds and to start to use metamucil to bulk up stool to avoid incontinence- recs appreciated 8. Heme- iron deficincey anemia, c/u supplement 9. Psych- hx of depression, c/u zoloft and atarax 10. - monitor PVRs, c/u flomax 11. DIspo- 09-26-20 to home, progressing towards goals Allergies Coded Allergies: lisinopril (Verified Adverse Reaction, Intermediate, HYPOTENSION, 01/18/20) metformin (Verified Adverse Reaction, Intermediate, LOWERS KIDNEY FUNCTON, 01/18/20) finasteride (Verified Adverse Reaction, Unknown, DIZZINESS, 07/16/20) Vital Signs Vital Signs Date Time Temp Pulse Resp B/P (MAP) Pulse Ox O2 Delivery O2 Flow Rate FiO2 09/26/20 05:46 97.0 55 18 150/73 (98) 99 Room Air Laboratory Data Labs 24H Laboratory Tests 2 09/25/20 16:35: Bedside Glucose (Misc Panel) 144H 09/26/20 05:49: Bedside Glucose (Misc Panel) 110 Current Medications Current Medications Current Medications Medications (Trade) Dose Ordered Sig/Imelda Route PRN Reason Start Time Stop Time Status Last Admin Dose Admin Acetaminophen (Tylenol Tab) 650 mg Q4HP PRN PO fever/MILD PAIN (PS 1-4) 09/16/20 16:10 09/26/20 11:20 DC Allopurinol (Zyloprim) 100 mg DAILY PO 09/17/20 09:00 09/26/20 11:20 DC 09/26/20 08:55 Ascorbic Acid (Vitamin C) 1,000 mg DAILY PO 09/17/20 09:00 09/26/20 11:20 DC 09/26/20 08:55 Aspirin (Ecotrin) 81 mg QHS PO 09/16/20 21:00 09/26/20 11:20 DC 09/25/20 20:18 Bisacodyl (Dulcolax Suppository) 10 mg DAILY@1999 [place] 09/18/20 20:00 09/18/20 20:37 DC Bisacodyl (Dulcolax Suppository) 10 mg DAILY@1999 [place] 09/19/20 20:00 09/19/20 08:09 DC Dextrose (Dextrose 50%) 25 ml ASDIRECTED PRN IV SEE LABEL COMMENTS 09/16/20 16:10 09/26/20 11:20 DC Dextrose/Sodium Chloride 1,000 ml @ 60 mls/hr [id number] IV 09/18/20 00:30 09/18/20 10:18 DC 09/18/20 00:52 Docusate Sodium (Colace) 100 mg BID PO 09/16/20 21:00 09/19/20 08:09 DC 09/18/20 20:25 Enoxaparin Sodium (Lovenox) 40 mg DAILY SC 09/17/20 09:00 09/23/20 11:10 DC 09/23/20 09:31 Ferrous Sulfate (Ferrous Sulfate) 325 mg BID PO 09/16/20 21:00 09/26/20 11:20 DC 09/26/20 08:55 Furosemide (Lasix) 20 mg DAILY PO 09/21/20 09:00 09/26/20 11:21 DC 09/26/20 08:55 Furosemide (Lasix) 40 mg DAILY PO 09/17/20 09:00 09/21/20 08:40 DC 09/20/20 09:25 Glucagon (Glucagon) 1 mg ASDIRECTED PRN SC SEE LABEL COMMENTS 09/16/20 16:10 09/26/20 11:20 DC Glucose (Glucose) 16 GM ASDIRECTED PRN PO SEE LABEL COMMENTS 09/16/20 16:10 09/26/20 11:20 DC Hydroxyzine HCl (Atarax) 10 mg BID PO 09/16/20 21:00 09/26/20 11:20 DC 09/26/20 08:56 Insulin Human Lispro (HumaLOG INSULIN) SEE PROTOCOL TABLE AC SC 09/17/20 07:30 09/19/20 13:07 DC 09/18/20 17:06 Insulin Human Lispro (HumaLOG INSULIN) SEE PROTOCOL TABLE QHS SC 09/16/20 21:00 09/19/20 13:07 DC Metoprolol Tartrate (Lopressor) 25 mg BID PO 09/21/20 09:00 09/23/20 13:50 DC 09/23/20 09:29 Metoprolol Tartrate (Lopressor) 50 mg BID PO 09/23/20 21:00 09/26/20 11:21 DC 09/26/20 08:54 Multivitamins (Theragram-M) 1 tab DAILY PO 09/17/20 09:00 09/26/20 11:20 DC 09/26/20 09:00 Nitroglycerin (Nitrostat (1/ 150)) 0.4 mg Q5MP PRN SL CHEST PAIN 09/16/20 16:10 09/26/20 11:21 DC Omeprazole (PriLOSEC) 40 mg DAILY PO 09/17/20 09:00 09/26/20 11:20 DC 09/26/20 08:54 Polyethylene Glycol (Miralax) 1 pkt DAILY PRN PO CONSTIPATION 09/16/20 16:10 09/18/20 09:41 DC Primidone (Mysoline) 25 mg BID PO 09/16/20 21:00 09/26/20 11:21 DC 09/26/20 08:54 Psyllium Hydrophilic Mucilloid (Metamucil) 1 pkt DAILY PO 09/19/20 09:00 09/26/20 11:21 DC 09/26/20 08:55 Rosuvastatin Calcium (Crestor) 20 mg QHS PO 09/16/20 21:00 09/26/20 11:21 DC 09/25/20 20:17 Senna (Senokot) 1 tab QHS PO 09/16/20 21:00 09/26/20 11:20 DC 09/25/20 20:18 Sertraline HCl (Zoloft) 50 mg DAILY PO 09/17/20 09:00 09/26/20 11:21 DC 09/26/20 08:54 Simethicone (Mylicon) 80 mg TID PO 09/17/20 16:00 09/26/20 11:21 DC 09/26/20 08:54 Sodium Chloride 1,000 ml @ 60 mls/hr [id number] IV 09/17/20 19:30 09/18/20 00:31 DC 09/17/20 19:47 Spironolactone (Aldactone) 12.5 mg DAILY PO 09/19/20 09:00 09/21/20 08:40 DC 09/20/20 09:25 Tamsulosin HCl (Flomax) 0.4 mg QHS PO 09/16/20 21:00 09/26/20 11:21 DC 09/25/20 20:18 Telmisartan (Micardis) 10 mg QHS PO 09/16/20 21:00 09/21/20 08:43 DC 09/20/20 20:42 LV HEREDIA MD Sep 26, 2020 12:20
--- NOTE | 2020-09-26 12:21 | IPNPDOC ---
PM&R Progress Note DATE OF SERVICE: Sep 25, 2020 Drywall Finisher Foreman Progress Note Subjective: Patient seen in the gym, working on fall recovery, states he is in good spirits, feels stronger, and is having fewer bowel leaks. REVIEW OF SYSTEMS: The following is a completed review of systems and has been reviewed. Review of systems otherwise unremarkable. PAIN: Patient self reports no pain EYES: No recent vision changes EARS, NOSE, & THROAT: No throat pain, or dysphagia, or rhinorrhea CARDIOVASCULAR: Denies chest pain or palpitations PULMONARY: Denies shortness of breath GASTROINTESTINAL: +fecal incontinence GENITOURINARY: denies dysuria MUSCULOSKELETAL: right sided weakness NEUROLOGICAL:right sided paresis and paresthesias HEMATOLOGICAL: denies easy bruising SKIN: denies rash PSYCHIATRIC: Unremarkable All other review of systems found to be negative. PHYSICAL EXAMINATION: VITAL SIGNS: Please see below. GENERAL: Pleasant and cooperative. No acute distress. HEENT: PERRL. Extraocular movements intact. Clear conjunctiva CARDIOVASCULAR: Regular rate and rhythm. No murmurs, rubs, or gallops LUNGS: Clear to auscultation bilaterally. No wheezes. No rhonchi ABDOMEN: distended, no guarding, no TTP, Positive bowel sounds NEUROLOGICAL: Alert and oriented times three. Cranial nerves II through XII grossly intact. +babinski bilat (decreased sensation to light touch bilat LE in stocking pattern and diffusely RUE) EXTREMITIES: 5-\5 strength right upper extremities. 5/5 LUE, 5\5 strength right lower extremity. 5/5 strength in left lower extremity. +bilat LE edema SKIN: intact ASSESSMENT:70-year-old M with past medical history of syrinx who presents status post worsenign right sided weakness and gait instability with extension of his syrinx don to T9 PLAN: 1. Rehab- PT/OT advance mobilty and ADl- strengthen/stretch/maintain ROM all 4 limbs- ambulating with RW, room privileges 2. 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 CArdiac- hx of chronic diastolic CHF- fluid restrict, daily weights, lasix dose lowered and aldactone stopped as End Packer starting to increase over the weekend -HLD c/u statin -HTN c/u BP meds, added metoprolol over weekend for elevated BPs, however will increase to 50mg BID -medicine consulted to assist in overall management 4 resp- hx of LIANNA on CPAP 5. endo- DM with hypoglycemia, hold oral agents, c/u ISS, glucose levels due to risk of falls at home 6. DVT ppx- lovenox 7. GI- c/u prilosec for ppx -KUB 09-17-20 ordered to rule out fecal retention in setting of neurogenic bowel, showing ileus vs SBO- case discussed with general surgery who recommends d/cing bowel meds and to start to use metamucil to bulk up stool to avoid incontinence- recs appreciated 8. Heme- iron deficincey anemia, c/u supplement 9. Psych- hx of depression, c/u zoloft and atarax 10. - monitor PVRs, c/u flomax 11. DIspo- 09-26-20 to home, progressing towards goals Allergies Coded Allergies: lisinopril (Verified Adverse Reaction, Intermediate, HYPOTENSION, 01/18/20) metformin (Verified Adverse Reaction, Intermediate, LOWERS KIDNEY FUNCTON, 01/18/20) finasteride (Verified Adverse Reaction, Unknown, DIZZINESS, 07/16/20) Vital Signs Vital Signs Date Time Temp Pulse Resp B/P (MAP) Pulse Ox O2 Delivery O2 Flow Rate FiO2 09/26/20 05:46 97.0 55 18 150/73 (98) 99 Room Air Laboratory Data Labs 24H Laboratory Tests 2 09/25/20 16:35: Bedside Glucose (Misc Panel) 144H 09/26/20 05:49: Bedside Glucose (Misc Panel) 110 Current Medications Current Medications Current Medications Medications (Trade) Dose Ordered Sig/Imelda Route PRN Reason Start Time Stop Time Status Last Admin Dose Admin Acetaminophen (Tylenol Tab) 650 mg Q4HP PRN PO fever/MILD PAIN (PS 1-4) 09/16/20 16:10 09/26/20 11:20 DC Allopurinol (Zyloprim) 100 mg DAILY PO 09/17/20 09:00 09/26/20 11:20 DC 09/26/20 08:55 Ascorbic Acid (Vitamin C) 1,000 mg DAILY PO 09/17/20 09:00 09/26/20 11:20 DC 09/26/20 08:55 Aspirin (Ecotrin) 81 mg QHS PO 09/16/20 21:00 09/26/20 11:20 DC 09/25/20 20:18 Bisacodyl (Dulcolax Suppository) 10 mg DAILY@1999 [place] 09/18/20 20:00 09/18/20 20:37 DC Bisacodyl (Dulcolax Suppository) 10 mg DAILY@1999 [place] 09/19/20 20:00 09/19/20 08:09 DC Dextrose (Dextrose 50%) 25 ml ASDIRECTED PRN IV SEE LABEL COMMENTS 09/16/20 16:10 09/26/20 11:20 DC Dextrose/Sodium Chloride 1,000 ml @ 60 mls/hr [id number] IV 09/18/20 00:30 09/18/20 10:18 DC 09/18/20 00:52 Docusate Sodium (Colace) 100 mg BID PO 09/16/20 21:00 09/19/20 08:09 DC 09/18/20 20:25 Enoxaparin Sodium (Lovenox) 40 mg DAILY SC 09/17/20 09:00 09/23/20 11:10 DC 09/23/20 09:31 Ferrous Sulfate (Ferrous Sulfate) 325 mg BID PO 09/16/20 21:00 09/26/20 11:20 DC 09/26/20 08:55 Furosemide (Lasix) 20 mg DAILY PO 09/21/20 09:00 09/26/20 11:21 DC 09/26/20 08:55 Furosemide (Lasix) 40 mg DAILY PO 09/17/20 09:00 09/21/20 08:40 DC 09/20/20 09:25 Glucagon (Glucagon) 1 mg ASDIRECTED PRN SC SEE LABEL COMMENTS 09/16/20 16:10 09/26/20 11:20 DC Glucose (Glucose) 16 GM ASDIRECTED PRN PO SEE LABEL COMMENTS 09/16/20 16:10 09/26/20 11:20 DC Hydroxyzine HCl (Atarax) 10 mg BID PO 09/16/20 21:00 09/26/20 11:20 DC 09/26/20 08:56 Insulin Human Lispro (HumaLOG INSULIN) SEE PROTOCOL TABLE AC SC 09/17/20 07:30 09/19/20 13:07 DC 09/18/20 17:06 Insulin Human Lispro (HumaLOG INSULIN) SEE PROTOCOL TABLE QHS SC 09/16/20 21:00 09/19/20 13:07 DC Metoprolol Tartrate (Lopressor) 25 mg BID PO 09/21/20 09:00 09/23/20 13:50 DC 09/23/20 09:29 Metoprolol Tartrate (Lopressor) 50 mg BID PO 09/23/20 21:00 09/26/20 11:21 DC 09/26/20 08:54 Multivitamins (Theragram-M) 1 tab DAILY PO 09/17/20 09:00 09/26/20 11:20 DC 09/26/20 09:00 Nitroglycerin (Nitrostat (1/ 150)) 0.4 mg Q5MP PRN SL CHEST PAIN 09/16/20 16:10 09/26/20 11:21 DC Omeprazole (PriLOSEC) 40 mg DAILY PO 09/17/20 09:00 09/26/20 11:20 DC 09/26/20 08:54 Polyethylene Glycol (Miralax) 1 pkt DAILY PRN PO CONSTIPATION 09/16/20 16:10 09/18/20 09:41 DC Primidone (Mysoline) 25 mg BID PO 09/16/20 21:00 09/26/20 11:21 DC 09/26/20 08:54 Psyllium Hydrophilic Mucilloid (Metamucil) 1 pkt DAILY PO 09/19/20 09:00 09/26/20 11:21 DC 09/26/20 08:55 Rosuvastatin Calcium (Crestor) 20 mg QHS PO 09/16/20 21:00 09/26/20 11:21 DC 09/25/20 20:17 Senna (Senokot) 1 tab QHS PO 09/16/20 21:00 09/26/20 11:20 DC 09/25/20 20:18 Sertraline HCl (Zoloft) 50 mg DAILY PO 09/17/20 09:00 09/26/20 11:21 DC 09/26/20 08:54 Simethicone (Mylicon) 80 mg TID PO 09/17/20 16:00 09/26/20 11:21 DC 09/26/20 08:54 Sodium Chloride 1,000 ml @ 60 mls/hr [id number] IV 09/17/20 19:30 09/18/20 00:31 DC 09/17/20 19:47 Spironolactone (Aldactone) 12.5 mg DAILY PO 09/19/20 09:00 09/21/20 08:40 DC 09/20/20 09:25 Tamsulosin HCl (Flomax) 0.4 mg QHS PO 09/16/20 21:00 09/26/20 11:21 DC 09/25/20 20:18 Telmisartan (Micardis) 10 mg QHS PO 09/16/20 21:00 09/21/20 08:43 DC 09/20/20 20:42 LV HEREDIA MD Sep 26, 2020 12:21
--- NOTE | 2020-09-26 12:44 | PMRDS ---
NAME: ELLY CARSON [facility] WT ID#: [id number] : [id number] JOB: LINDA: 09/26/2020 ACCT: [id number] DOCTOR: LV HEREDIA MD PMR DISCHARGE SUMMARY DATE OF ADMISSION: 09/16/2020 DATE OF DISCHARGE: 09/26/2020 CHIEF COMPLAINT/DISCHARGE DIAGNOSIS: Syringomyelia extension with right-sided paresis. HISTORY OF PRESENT ILLNESS: A 78-year-old man with a past medical history of syringomyelia with right-sided paresis, bowel incontinence, iron-deficiency anemia, diastolic congestive heart failure (CHF), low testosterone, depression, BPH, obstructive sleep apnea (LIANNA), on continuous positive airway pressure (CPAP), hyperlipidemia, hypertension, diabetes, who presented to [facility] ([facility]) Emergency Department (ED) on 09/14/2020 with worsening right-sided weakness with falls at home. Cervical MRI shows "unchanged cerebellar tonsillar ectopia/Chiari I malformation with associated crowding at the craniocervical junction. No significant change in the longitudinally extensive spinal cord syrinx extending from C1 inferiorly into the thoracic spinal cord below the field of imaging with associated parenchymal volume loss." Thoracic MRI showed "extensive spinal cord syrinx extending from the imaged cervical spinal cord inferiorly to the [place] level with cord thinning and likely myelomalacia superiorly," and lumbar MRI showing "severe bilateral neural foraminal narrowing at L5-S1." Patient declined neurosurgical intervention for the caudal extension of the syrinx from T4 down to T9 and requested therapy. He was noted to have anemia and hypoglycemia, for which his home medications were held. He was evaluated by therapy, noted to have mobility in activities of daily living (ADL) impairments, and deemed medically appropriate for discharge to acute rehabilitation unit (ARU). On admission, patient reports chronic bowel incontinence but no trouble urinating. PAST MEDICAL HISTORY: As per history of present illness (HPI). HOSPITAL COURSE: Patient was admitted and enrolled in a comprehensive physical therapy (PT)/occupational therapy (OT) program. He received 24-hour nursing supervision, and weekly team meetings were held to discuss his progress. Patient was maintained on a fluid restriction and Lasix for his chronic diastolic CHF. Aldactone was initiated due to lower extremity edema; however, patient had a slight increase his creatinine, so the Aldactone was discontinued and his Lasix dose lowered. He was started on metoprolol for elevated blood pressures. He had persistent low fingersticks and was discharged home off of any oral diabetic medications and insulin. Patient's fecal incontinence was improved with the initiation of Metamucil, which is recommended by surgery. Patient had a KUB on initial presentation, showing ileus versus small-bowel obstruction (SBO); however, he was having bowel movements and passing gas, evaluated by surgery, who recommended Metamucil and was not concerned for obstruction or ileus. Patient made steady gains in therapy and was deemed functionally and medically stable to return home. DISCHARGE MEDICATIONS: As per instructions. FUNCTIONAL HISTORY ON DISCHARGE: Patient was modified independent for bed mobility, ADLs, and ambulation. Thank you for this referral.
[2020-09-27] MEDS ORDERED: INSULADS INJ (09:51)
[2020-09-27] MEDS ORDERED: DOK1CAP7 PO (09:51)
[2020-09-27] MEDS ORDERED: OMEP40CA97 PO (09:51)
== END 2020-09-26 11:20 | disposition home or self-care (01) | DRG 56 ==
LOC: M PM&R 17:15
PROVIDERS: ADMIT Physical Medicine & Rehabilitation; ATTEND Physical Medicine & Rehabilitation
DX: G95.0 Syringomyelia and syringobulbia (principal); G93.5 Compression of brain; I50.32 Chronic diastolic (congestive) heart failure; D50.9 Iron deficiency anemia, unspecified; G81.91 Hemiplegia, unspecified affecting right dominant side; E29.1 Testicular hypofunction; F32.9 Major depressive disorder, single episode, unspecified; G47.33 Obstructive sleep apnea (adult) (pediatric); I11.0 Hypertensive heart disease with heart failure; E78.5 Hyperlipidemia, unspecified; E11.649 Type 2 diabetes mellitus with hypoglycemia without coma; Z74.09 Other reduced mobility; Z74.1 Need for assistance with personal care; R15.9 Full incontinence of feces; Z98.2 Presence of cerebrospinal fluid drainage device; Z87.891 Personal history of nicotine dependence; Z79.82 Long term (current) use of aspirin; Z79.4 Long term (current) use of insulin; Z79.899 Other long term (current) drug therapy; Z88.8 Allergy status to other drugs, medicaments and biological substances; M10.9 Gout, unspecified; N40.0 Benign prostatic hyperplasia without lower urinary tract symptoms; F41.9 Anxiety disorder, unspecified; Z68.37 Body mass index [BMI] 37.0-37.9, adult

== ENCOUNTER 2020-10-01 12:42 | Outpatient (RCR) | payer MEDICARE, BC, OTHER ==
[~2020-10-01 12:42] MED LIST changes: +INSULADS INJ; +LOPR1TAB6 PO; +OMEP40CA97 PO
== END 2020-10-02 | disposition home or self-care (01) ==
LOC: M PT 12:42
PROVIDERS: ATTEND Family Medicine
DX: R26.9 Unspecified abnormalities of gait and mobility (principal)

== ENCOUNTER → 2020-10-02 | Outpatient (CLI) | payer MEDICARE, BC, OTHER ==
--- NOTE | 2020-10-02 15:51 | REP ---
INDICATION: CHRONIC DIASTOLIC (CONGESTIVE) HEART FAILURE, LAB 1ST XR 2ND. COMPARISON: PA and lateral chest dated 01/04/2020. TECHNIQUE: Upright PA and lateral chest. FINDINGS: The lung glover are clear. The cardiac size is mildly enlarged. The wendie and mediastinum are unremarkable. There is thoracic scoliosis convex right, unchanged. IMPRESSION: Mild cardiomegaly. Thoracic scoliosis convex right, unchanged. <Electronically signed by Bautista Garcia > 10/02/20 [id number]
== END ==
LOC: M LAB 12:10
PROVIDERS: ATTEND Physician Assistant
DX: I50.32 Chronic diastolic (congestive) heart failure (principal)

== ENCOUNTER 2020-10-22 12:15 | Outpatient (RCR) | payer MEDICARE, BC, OTHER ==
[~2020-10-22 12:15] MED LIST changes: +COVI30VI IM; +FURO80TA2 PO
[2020-10-26] MEDS ORDERED: DOK1CAP7 PO (12:30)
[2020-10-26] MEDS ORDERED: TELM1TAB33 PO (12:30)
[2020-10-26] MEDS ORDERED: OMEP1CAP73 PO (14:02)
[2020-10-26] MEDS ORDERED: ALLO100T PO (14:02)
[2020-10-26] MEDS ORDERED: SENN-52 PO (14:02)
[2020-10-26] MEDS ORDERED: INSUDET SC (14:02)
[2020-10-26] MEDS ORDERED: PRIM50TA6 PO (14:02)
[2020-10-26] MEDS ORDERED: FLOM0.4C39 PO (14:02)
[2020-10-26] MEDS ORDERED: D31000TA2 PO (14:02)
[2020-10-26] MEDS ORDERED: SERT50TA29 PO (14:02)
[2020-10-26] MEDS ORDERED: ASPI81TA26 PO (14:02)
[2020-10-26] MEDS ORDERED: HYDR-643 PO (14:02)
[2020-10-26] MEDS ORDERED: FERR1TAB8 PO (14:02)
[2020-10-26] MEDS ORDERED: FURO40TA2 PO (14:02)
[2020-10-26] MEDS ORDERED: CRES20TA2 PO (14:02)
== END 2020-11-01 ==
LOC: M PT 12:15
PROVIDERS: ATTEND Family Medicine
DX: R26.9 Unspecified abnormalities of gait and mobility (principal)

== ENCOUNTER → 2020-10-23 | Outpatient (CLI) | payer MEDICARE, BC, OTHER | LOC: M LABSMTC 11:08 | PROVIDERS: ATTEND Anesthesiology | DX: Z01.818 Encounter for other preprocedural examination (principal); Z11.52 Encounter for screening for COVID-19 ==

== ENCOUNTER 2020-10-26 10:12 | Inpatient (IN) | payer MEDICARE, BC, OTHER ==
[~2020-10-26] VITALS: Ht 172.7 cm; Wt 105.0 kg
[2020-10-26 12:15] LABS: HEMATOCRIT 23.7 % (42.0-52.0); HEMOGLOBIN 7.9 g/dl (13.5-17.5); LYMPH # 0.5 10^3/uL (1.5-5.0); LYMPH % 13.1 % (24.0-44.0); MEAN CORPUSCULAR HGB CONC 33.3 g/dl (32.0-36.5); MONO # 0.4 10^3/uL (0.0-0.8); NEUTROPHILS % 76.6 % (36.0-66.0); RED BLOOD COUNT 2.47 10^6/uL (4.30-6.10); WHITE BLOOD COUNT 3.9 10^3/uL (4.0-10.0)
[2020-10-26] MEDS ORDERED: DOK1CAP7 PO (12:30)
[2020-10-26] MEDS ORDERED: TELM1TAB33 PO (12:30)
[2020-10-26 12:36] LABS: PLATELET COUNT, AUTOMATED 79 10^3/uL (150-450)
[2020-10-26 12:40] LABS: BLOOD UREA NITROGEN 67 MG/DL (7-18); CALCIUM LEVEL 8.6 MG/DL (8.8-10.2); CARBON DIOXIDE LEVEL 29 MEQ/L (21-32); CHLORIDE LEVEL 98 MEQ/L (98-107); CREATININE FOR GFR 1.12 MG/DL (0.70-1.30); GLOMERULAR FILTRATION RATE > 60.0 (>42); GLUCOSE, FASTING 110 MG/DL (70-100); POTASSIUM SERUM 4.9 MEQ/L (3.5-5.1); SODIUM LEVEL 131 MEQ/L (136-145)
--- NOTE | 2020-10-26 13:14 | REP ---
INDICATION: admission COMPARISON: 10/02/2020 TECHNIQUE: Portable AP view of the chest FINDINGS: The mediastinum and cardiac silhouette are stable and within normal limits for portable technique. Vague right basilar opacity suggests possible layering effusion and atelectasis. Remainder of lung glover are clear. IMPRESSION: Vague opacity at the right base suggesting small layering effusion and atelectasis. <Electronically signed by Ralph Kc > 10/26/20 [id number]
[2020-10-26] MEDS ORDERED: ALLO100T PO (14:02)
[2020-10-26] MEDS ORDERED: INSUDET SC (14:02)
[2020-10-26] MEDS ORDERED: D31000TA2 PO (14:02)
[2020-10-26] MEDS ORDERED: CRES20TA2 PO (14:02)
[2020-10-26] MEDS ORDERED: ASPI81TA26 PO (14:02)
[2020-10-26] MEDS ORDERED: SENN-52 PO (14:02)
[2020-10-26] MEDS ORDERED: PRIM50TA6 PO (14:02)
[2020-10-26] MEDS ORDERED: FURO40TA2 PO (14:02)
[2020-10-26] MEDS ORDERED: FERR1TAB8 PO (14:02)
[2020-10-26] MEDS ORDERED: HYDR-643 PO (14:02)
[2020-10-26] MEDS ORDERED: FLOM0.4C39 PO (14:02)
[2020-10-26] MEDS ORDERED: SERT50TA29 PO (14:02)
[2020-10-26] MEDS ORDERED: OMEP1CAP73 PO (14:02)
[2020-10-26 14:19] LABS: RSV AMPLIFICATION NEGATIVE (NEGATIVE)
[2020-10-26] MEDS ORDERED: NITROGLYCERIN 0.4 MG SUBL TABLET SL PRN (16:15)
--- NOTE | 2020-10-26 19:34 | REPVR ---
PROCEDURE INFORMATION: Exam: MR Cervical Spine Without Contrast Exam date and time: 10/26/2020 6:24 PM Age: 70 years old Clinical indication: Condition or disease; Other: Syringomyelimia; Prior surgery; Surgery date: 6+ months; Surgery type: Shunt in 80s; Additional info: Worsening right sided weakness, paresthesia, syringomyelimia TECHNIQUE: Imaging protocol: Multiplanar magnetic resonance images of the cervical spine without contrast. COMPARISON: MRI-C SPINE W/O FOLL BY WITH 09/15/2020 11:37 AM FINDINGS: Vertebrae: Posterior laminectomy at C5 and C6. Laminotomy at L4.. Spinal cord: There is a large syrinx noted within the cervical cord extending from C1 through T2. There is myelomalacia. The cord is not imaged in its entirety.. C1-C2: Cerebellum: Cerebellar tonsils extend 1 cm below foramen magnum. C2-C3: No significant disc disease. No significant spinal stenosis. C3-C4: Circumferential annulus bulge. Hypertrophic facet arthropathy particularly on the left. Narrowed lateral recesses bilaterally.. No significant spinal stenosis. Mild foraminal stenosis. C4-C5: Circumferential annulus bulge. Uncovertebral hypertrophy particularly on the right. Mild facet arthropathy. Narrowed lateral recesses. No significant spinal stenosis. Mild foraminal stenosis. C5-C6: Partial ankylosis of the vertebral bodies. Partial Fusion suggested of the facet joints. No significant spinal stenosis. C6-C7: No significant disc disease. No significant spinal stenosis. C7-T1: No significant disc disease. No significant spinal stenosis. Soft tissues: Unremarkable. Vertebral arteries: Expected flow voids in the vertebral arteries. Other findings: Motion artifact degrades image quality IMPRESSION: 1. Stable syrinx with myelomalacia. 2. Postoperative changes within the cord from C4 through C6. 3. Narrowed lateral recesses bilaterally and foraminal stenosis at C3-C4 and C4-C5. No change. 4. Chiari 1 malformation Electronically signed by: Roshni Merino On 10/26/2020 19:33:47 PM
--- NOTE | 2020-10-26 19:36 | HPEPDOC ---
[facility] Medical History & Physical Date of Admission Oct 26, 2020 Date of Service: Oct 26, 2020 Primary Care Physician: Tena Hamilton Attending Physician: ALEJANDRINA HOFF DO History and Physical CHIEF COMPLAINT: Worsening right-sided weakness HISTORY OF PRESENT ILLNESS: Patient reports that he has been having progressively worsening right-sided weakness ever since his discharge from the rehabilitation unit. He was ambulatory at home, albeit apparently he has been slowing down progressively over the past few weeks. Then, just last night he was in bed and was unable to get out of bed due to weakness on his right side. Apparently previously was able to use his right hand fairly well, even the point where he was able to write, now his weakness has progressed to the point where he is only just able to lift it up, but is not able to use it for really any meaningful tasks. His right leg also seems to be much weaker as well, now it is to the point where he is unable to ambulate. CODE STATUS: There is a front page of a MOLST from 2019 indicating DNR/DNI, but no additional pages scanned. PAST MEDICAL HISTORY: Syringomyelia with right-sided deficits Gait instability Diabetes mellitus type 2 Obstructive sleep apnea with CPAP Hypertension Iron deficiency anemia Hyperlipidemia Depression Benign prostatic hypertrophy Low testosterone GERD Anxiety History of gout PAST SURGICAL HISTORY: Shunt placement 1983 Removal of right scalene muscle SOCIAL HISTORY: Quit smoking years ago. Will only have a few beers a week now, previously used to drink more alcohol. Denies illicit drug use FAMILY HISTORY: Father at age 58 with a history of CAD. Mother in her 70s with a history of CHF. REVIEW OF SYSTEMS: Constitutional: Patient denies fevers, chills, night sweats, recent weight gain/loss. HEENT: Patient denies blurred or double vision, transient visual disturbances, postnasal drip, epistaxis, sore throat, difficulty chewing food. Occasionally he will have difficulty swallowing things like meat or salad. Cardiovascular: Patient denies chest discomfort/pain, palpitations, exertional dyspnea, orthopnea. Respiratory: Patient denies dyspnea, wheezing, cough, hemoptysis, sputum production. Gastrointestinal: He is complaining of chronic diarrhea. Patient denies nausea, vomiting, constipation, abdominal pain, melena, hematochezia, hematemesis, jaundice. PHYSICAL EXAMINATION: General: Awake, alert, oriented 3. He is accompanied in the room by his who also provides some of the history. They are both very good historians. HEENT: Head normocephalic atraumatic, conjunctiva are pink, sclera are nonicteric, buccal mucosa is pink and moist with no lesions in the oropharynx. Hearing is grossly intact to conversation. Respiratory: Clear to auscultation bilaterally with no wheezes, rales, or rhonchi. Cardiovascular: Regular rate and rhythm, with no rubs, gallops, or murmur. Abdomen: Soft, nontender, nondistended, no hepatosplenomegaly appreciated. Bowel sounds present. Extremities: 2-3+ pitting edema in the bilateral lower extremities. He does have chronic venous stasis changes. Neuro: Decreased sensation to light touch in both the right upper and lower extremities, but he can still perceive my touch. 3/5 muscle strength in the right-sided upper and lower extremities: He is able to lift the right arm, and is able to resist some of my pressure during the examination, but he is quite weak. He is able to move his right toes, and is able to lift the knee off the bed, but is unable to lift his right heel off the bed. Left side has full sensation, and 5/5 strength. DTRs are essentially absent on the right side, 1+ on the left side. Extraocular movements are intact. He does not seem to have any difficulty with word finding or words substitution. ASSESSMENT/PLAN: Acute worsening of chronic right-sided deficits Syringomyelia - Given that his weakness is progressing, will order repeat MRI of head, cervical spine, thoracic spine, and lumbar spine to reevaluate for progression of syringomyelia versus any other etiology that may be causing worsening of his deficit (i.e. stroke) - PT/OT consults placed - PFS consult for evaluation regarding possible placement -Continue home dose of primidone Diarrhea -The patient has reported episodes of incontinence, however upon discussing this with him it appears that he does feel the sensation of needing to go to the bathroom, but he was unable to get out of bed and get to the bathroom in time due to his right-sided weakness, therefore he will have episodes of "incontinence". It is listed that he has Colace & Senna as home medications, this will be held at this time. During his last admission at [facility] this was switched over to psyllium fiber/Metamucil, and this will be given at this time. Diabetes mellitus type 2 -Continue home dose of Levemir Obstructive sleep apnea with CPAP - May use home CPAP machine Hypertension -Continue home dose of furosemide & telmisartan Iron deficiency anemia -He was just given an iron infusion a few days ago. Will hold oral iron supplementation at this time. Hyperlipidemia -Continue home dose of rosuvastatin Depression/Anxiety -Continue home dose of sertraline -Continue home dose of hydroxyzine CAD -Continue home dose of 81 mg aspirin - Nitroglycerin PRN Benign prostatic hypertrophy -Continue home dose of tamsulosin GERD -Continue home dose of omeprazole History of gout - Continue home dose of allopurinol Vitamin D deficiency/insufficiency -Continue home dose of vitamin D supplementation DVT prophylaxis -TEDs & Sequentials due to low platelets Vital Signs Vital Signs Date Time Temp Pulse Resp B/P (MAP) Pulse Ox O2 Delivery O2 Flow Rate FiO2 10/26/20 12:00 57 19 157/69 (98) 95 Room Air 10/26/20 10:15 95.6 Laboratory Data Labs 24H Laboratory Tests 2 10/26/20 10:27: Immature Granulocyte % (Auto) 0.3, Neutrophils (%) (Auto) 76.6H, Lymphocytes (%) (Auto) 13.1L, Monocytes (%) (Auto) 9.0H, Eosinophils (%) (Auto) 1.0, Basophils (%) (Auto) 0.0, Neutrophils # (Auto) 3.0, Lymphocytes # (Auto) 0.5L, Monocytes # (Auto) 0.4, Eosinophils # (Auto) 0.0, Basophils # (Auto) 0.0, Nucleated Red Blood Cells % (auto) 0.0, Immature Platelet Fraction 14.2H, Anion Gap 4L, Glomerular Filtration Rate > 60.0, Calcium Level 8.6L, Thyroid Stimulating Hormone (TSH) 2.600, Coronavirus (COVID-19)(PCR) NEGATIVE, Influenza Type A (RT- PCR) NEGATIVE, Influenza Type B (RT-PCR) NEGATIVE, Respiratory Syncytial Virus (PCR) NEGATIVE CBC/BMP Laboratory Tests 10/26/20 10:27 Home Medications Scheduled Allopurinol (Allopurinol) 100 Mg Tablet, 100 MG PO DAILY Aspirin (Aspirin EC) 81 Mg Tablet.dr, 81 MG PO QPM Cholecalciferol (Vitamin D3) (Vitamin D3) 1,000 Unit Tablet, 1,000 UNITS PO DAILY Docusate Sodium (Dok) 100 Mg Capsule, 100 MG PO DAILY Ferrous Sulfate (Ferrous Sulfate) 325 Mg Tablet, 325 MG PO BID Furosemide (Furosemide) 40 Mg Tablet, 40 MG PO DAILY Insulin Detemir (Levemir) 100 Unit/1 Ml Vial, 26 UNITS SC DAILY Multivitamins (Thera M Plus Tablet) 1 Tab Tab, 1 TAB PO DAILY Omeprazole (Omeprazole) 20 Mg Capsule.dr, 40 MG PO DAILY Primidone (Primidone) 50 Mg Tablet, 25 MG PO BID Rosuvastatin Calcium (Crestor) 20 Mg Tablet, 20 MG PO QPM Sennosides/Docusate Sodium (Senna Plus Tablet) 1 Each Tablet, 1 TAB PO QPM Sertraline HCl (Sertraline HCl) 50 Mg Tablet, 50 MG PO DAILY Tamsulosin HCl (Flomax) 0.4 Mg Capsule, 0.4 MG PO QPM Telmisartan (Telmisartan) 20 Mg Tablet, 10 MG PO QPM Scheduled PRN Hydroxyzine HCl (Hydroxyzine HCl) 10 Mg Tablet, 10 MG PO QID PRN for ANXIETY Nitroglycerin (Nitrostat) 0.4 Mg Subl, 0.4 MG SL NITRO PRN for ANGINA Allergies Coded Allergies: lisinopril (Verified Adverse Reaction, Intermediate, HYPOTENSION, 10/21/20) metformin (Verified Adverse Reaction, Intermediate, LOWERS KIDNEY FUNCTON, 10/21/20) finasteride (Verified Adverse Reaction, Unknown, DIZZINESS, 10/21/20) A-FIB/CHADSVASC A-FIB History Current/History of A-Fib/PAF?: No ALEJANDRINA HOFF DO Oct 26, 2020 16:31
--- NOTE | 2020-10-26 19:44 | REPVR ---
PROCEDURE INFORMATION: Exam: MR Thoracic Spine Without Contrast Exam date and time: 10/26/2020 6:24 PM Age: 70 years old Clinical indication: Condition or disease; Other: Syringomyelimia; Prior surgery; Surgery date: 6+ months; Surgery type: Prior shunt; Additional info: Worsening right sided weakness, paresthesia, syringomyelimia TECHNIQUE: Imaging protocol: Multiplanar magnetic resonance images of the thoracic spine without intravenous contrast. COMPARISON: MRI-T SPINE W/O FOLL WITH CON 09/15/2020 12:19 PM FINDINGS: Vertebrae: Apparent rotatory dextroscoliosis.. Spinal cord: There is a syrinx extending throughout the thoracic cord to approximately level T 9-10.. There is myelomalacia. Conus posterior to L1 T1-T2: No significant disc disease. No significant spinal canal stenosis. T2-T3: No significant disc disease. No significant spinal canal stenosis. T3-T4: No significant disc disease. No significant spinal canal stenosis. T4-T5: No significant disc disease. No significant spinal canal stenosis. T5-T6: Posterior disc protrusion with mild impression upon the ventral margin of the thecal sac. No significant spinal canal stenosis. T6-T7: No significant disc disease. No significant spinal canal stenosis. T7-T8: No significant disc disease. No significant spinal canal stenosis. T8-T9: No significant disc disease. No significant spinal canal stenosis. T9-T10: No significant disc disease. No significant spinal canal stenosis. T10-T11: Broad-based posterior disc bulge.. No significant spinal canal stenosis. T11-T12: Posterior disc osteophyte ridge.. No significant spinal canal stenosis. Soft tissues: Right pleural effusion. Trace pleural fluid on the left.. Other findings: Motion artifact degrades image quality IMPRESSION: 1. Motion artifact degrades image quality. 2. Syrinx in the thoracic or with hilum malacia. No significant change from previous. 3. Bilateral pleural effusions, right greater than left. 4. Mild degenerative disc disease without significant change. No central stenosis.. Electronically signed by: Roshni Merino On 10/26/2020 19:44:26 PM
--- NOTE | 2020-10-26 19:46 | REPVR ---
PROCEDURE INFORMATION: Exam: MR Head Without Contrast Exam date and time: 10/26/2020 6:25 PM Age: 70 years old Clinical indication: Condition or disease; Other: Syringomyelimia; Prior surgery; Surgery date: 6+ months; Surgery type: Shunt in 80s; Additional info: Worsening right sided weakness, paresthesia, syringomyelimia TECHNIQUE: Imaging protocol: MR of the head without contrast. COMPARISON: MRI-Brain without Contrast 09/16/2020 10:22 AM FINDINGS: Brain: There is no evidence of acute stroke on the diffusion-weighted sequence. There is no evidence of mass effect. Cerebral ventricles: There is mild prominence the lateral ventricles but unchanged since 07/16/2020. Bones/joints: Unremarkable. Paranasal sinuses: Normal as visualized. No acute sinusitis. Mastoid air cells: Normal as visualized. No mastoid effusion. Orbital cavity: The orbits appear symmetric. Soft tissues: Unremarkable. Other vasculature: The vessels of the [id number] have a normal signal void. IMPRESSION: No evidence of mass effect. Mild enlargement of the ventricles is stable. Electronically signed by: Willian Benito On 10/26/2020 19:45:45 PM
--- NOTE | 2020-10-26 19:50 | REPVR ---
PROCEDURE INFORMATION: Exam: MR Lumbar Spine Without Contrast Exam date and time: 10/26/2020 6:24 PM Age: 70 years old Clinical indication: Condition or disease; Other: Syringomyelimia; Prior surgery; Surgery date: 6+ months; Surgery type: Shunt placed in the 80s; Additional info: Worsening right sided weakness, paresthesia, syringomyelimia TECHNIQUE: Imaging protocol: Multiplanar magnetic resonance images of the lumbar spine without intravenous contrast. COMPARISON: MRI-LS SPINE W/O FOLL WITH CON 09/15/2020 12:00 PM FINDINGS: Vertebrae: Stable atypical hemangioma in L3.. Spinal cord: Conus posterior to T12. L1-L2: No significant disc disease. No significant spinal canal stenosis. No neural foraminal stenosis. L2-L3: Mild circumferential annulus bulge.. No significant spinal canal stenosis. No neural foraminal stenosis. L3-L4: Mild circumferential annulus bulge. Mild facet arthropathy.. No significant spinal canal stenosis. No neural foraminal stenosis. L4-L5: Circumferential annulus bulge. Mild hypertrophic facet arthropathy. Moderate right foraminal stenosis.. No significant spinal canal stenosis. L5-S1: Narrowing of the intervertebral disc space with the broad-based disc bulge asymmetric to the left. Narrowed left lateral recesses with moderate bilateral foraminal stenosis, left greater than right. Mild facet arthropathy.. No significant spinal canal stenosis. stenosis. Soft tissues: Unremarkable. IMPRESSION: Degenerative disc disease and facet arthropathy with multilevel foraminal stenosis. No central stenosis. No significant change from previous. Electronically signed by: Roshni Merino On 10/26/2020 19:49:57 PM
[2020-10-26] MEDS ORDERED: PILL CUTTER 1 EACH XX PRN (20:10)
[2020-10-26] MEDS: ASPIRIN 81MG ENTERIC TABLET PO SCH (20:41)
[2020-10-26] MEDS: PRIMIDONE 25MG PER 1/2 TABLET PO SCH (20:41)
[2020-10-26] MEDS: TAMSULOSIN 0.4 MG CAP PO SCH (20:41)
[2020-10-26] MEDS: TELMISARTAN 20 MG TAB PO SCH (20:41)
[2020-10-26] MEDS: ROSUVASTATIN 10 MG TAB (CRESTOR) PO SCH (20:41)
[2020-10-27] VITALS (7 sets, daily range): BP systolic 108–149; BP diastolic 41–80
[2020-10-27 07:26] LABS: ALBUMIN 3.1 GM/DL (3.2-5.2); ALT/SGPT 71 U/L (12-78); BILIRUBIN,TOTAL 0.1 MG/DL (0.2-1.0); BLOOD UREA NITROGEN 58 MG/DL (7-18); CALCIUM LEVEL 8.3 MG/DL (8.8-10.2); CARBON DIOXIDE LEVEL 29 MEQ/L (21-32); CHLORIDE LEVEL 99 MEQ/L (98-107); CREATININE FOR GFR 0.97 MG/DL (0.70-1.30); GLOMERULAR FILTRATION RATE > 60.0 (>42); GLUCOSE, FASTING 83 MG/DL (70-100); POTASSIUM SERUM 5.4 MEQ/L (3.5-5.1); SODIUM LEVEL 132 MEQ/L (136-145); TOTAL PROTEIN 6.2 GM/DL (6.4-8.2)
[2020-10-27] MEDS: FUROSEMIDE 40 MG TAB PO SCH (09:00)
[2020-10-27] MEDS: LEVEMIR (INSULIN DETEMIR) 1 UNITS/0.01ML SC SCH (09:00)
[2020-10-27] MEDS: SERTRALINE HCL 50 MG TAB PO SCH (09:53)
[2020-10-27] MEDS: OMEPRAZOLE 20 MG CAP PO SCH (09:53)
[2020-10-27] MEDS: allopurinoL 100 MG TAB PO SCH (09:53)
[2020-10-27] MEDS: VITAMIN D 1,000 INTERNATIONAL UNITS TABLET PO SCH (09:53)
[2020-10-27] MEDS: MULTIVITAMINS/MINERALS THERAP 1 TAB PO SCH (09:53)
[2020-10-27 09:54] LABS: HEMATOCRIT 22.7 % (42.0-52.0); HEMOGLOBIN 7.5 g/dl (13.5-17.5); MEAN CORPUSCULAR HEMOGLOBIN 31.1 pg (27.0-33.0); MEAN CORPUSCULAR VOLUME 94.2 fl (80.0-96.0); RED BLOOD COUNT 2.41 10^6/uL (4.30-6.10); WHITE BLOOD COUNT 4.5 10^3/uL (4.0-10.0)
[2020-10-27] MEDS: PRIMIDONE 25MG PER 1/2 TABLET PO SCH ×2 (09:54→21:45)
[2020-10-27 09:57] LABS: PLATELET COUNT, AUTOMATED 73 10^3/uL (150-450)
[2020-10-27] MEDS ORDERED: GLUCAGON INJ 1MG VIAL SC PRN (10:15)
[2020-10-27] MEDS ORDERED: GLUCOSE 4GM CHEW TABLET PO PRN (10:15)
[2020-10-27] MEDS ORDERED: DEXTROSE 50% 50 ML SYRINGE IV PRN (10:15)
[2020-10-27] MEDS ORDERED: FUROSEMIDE 20 MG TAB PO ONE (10:20)
--- NOTE | 2020-10-27 10:42 | REP ---
INDICATION: Right hand pain s/p fall COMPARISON: None. TECHNIQUE: AP and lateral views of the right wrist FINDINGS: The osseous structures and joint spaces are intact and normal. There is no evidence for acute fracture or dislocation. Surrounding soft tissues are unremarkable. No subcutaneous emphysema or radiodense foreign body. Vascular calcifications noted. IMPRESSION: No evidence for acute fracture or dislocation. If the patient remains symptomatic consider re-evaluation in 3-5 days with complete wrist series and scaphoid view if necessary. <Electronically signed by Ralph Kc > 10/27/20 [id number]
--- NOTE | 2020-10-27 11:44 | ECGEPIP ---
[facility] - ED Test Date: 2020-10-26 Pat Name: ELLY CARSON Department: Room: [place] [address] Gender: Male Rn Managed Care: DEBRA : 1950 Requested By: Nadir Messina Order Number: [id number] Reading MD: Nichole Giles Measurements Intervals [place] Rate: 57 P: DE: QRS: 56 QRSD: 108 T: 61 QT: 492 QTc: 478 Interpretive Statements baseline artifact may affect interpretation sinus rhythm first degree av block NSTTW abnormalities decreased rate 07/16/20 Electronically Signed on 10-27-2020 11:43:58 EDT by Nichole Giles
[2020-10-27] MEDS: HumaLOG INSULIN (NovoLOG) PER UNIT SC SCH ×3 (12:46→21:00)
[2020-10-27] MEDS: hydrOXYzine 10 MG TAB PO PRN ×2 (12:46→17:51)
--- NOTE | 2020-10-27 16:45 | IPNPDOC ---
Text Note Date of Service The patient was seen on 10/27/20. NOTE Hospitalist Progress Note Subjective: Patient is lying in hospital bed when I am in the room. He is awake and alert. Apparently he was unable to void for the past 24 hours, bladder scan revealed greater than 600 mL, therefore catheterization was requested. Straight cath was performed, and sent for urinalysis, however it does not appear that he has a UTI. Additionally, the patient is complaining of constipation, although he did just have a bowel movement prior to admission. Nevertheless he is requesting a stool softener, therefore he will be started on Colace. He is still concerned about the fact that he is more weak than his baseline. He did work with physical therapy today who also confirms this. MRIs of the brain, cervical spine, thoracic spine, and lumbar spine showed no interval change from priors during his last hospitalization. Objective: General: Awake, alert, oriented 3. Not in any acute distress. HEENT: Head normocephalic, atraumatic, sclera are nonicteric. Hearing is grossly intact to conversation. Respiratory: Clear to auscultation bilaterally with no wheezes, rales, or rhonchi. Cardiovascular: Regular rate and rhythm, with no rubs, gallops, or murmur. Abdomen: Soft, nontender, nondistended, no hepatosplenomegaly appreciated. Bowel sounds present. Extremities: 2+ pulses in the radial and dorsalis pedis bilaterally. No evidence of clubbing or cyanosis. Assessment/Plan: Acute worsening of chronic right-sided deficits Syringomyelia - MRI of head, cervical spine, thoracic spine, and lumbar spine are unchanged from prior - PT/OT are working with the patient, their input is greatly appreciated - PFS consult for evaluation regarding possible placement -Continue home dose of primidone Iron deficiency anemia High suspicion for GI Bleed/ Blood loss anemia Thrombocytopenia - Both HH & and platelets are slowly declining, and in the setting of elevated BUN and potassium, and is likely that he has a GI bleed. - Immature platelet fraction is elevated indicating that marrow response is decent, and more likely thrombocytopenia is due to destruction or loss (again, concern for GI bleed) - He is scheduled for upper and lower endoscopy outpatient tomorrow at 7:45 AM, I will call the endoscopy suite first thing tomorrow morning and hopefully they will still do them even though he is an inpatient at this time. - Blayne ordered for tonight - NPO after midnight -We will administer 2 units of leukocyte reduced PRBC tonight as well given worsening anemia <8 HH -He was just given an iron infusion twice prior to admission (on the two fridays prior to admission on 10/18 & 10/25 per report from ) . Will hold oral iron supplementation at this time. Diabetes mellitus type 2 -Continue home dose of Levemir Obstructive sleep apnea with CPAP - May use home CPAP machine Hypertension -Continue home dose of furosemide & telmisartan Hyperlipidemia -Continue home dose of rosuvastatin Depression/Anxiety -Continue home dose of sertraline -Continue home dose of hydroxyzine CAD -Continue home dose of 81 mg aspirin - Nitroglycerin PRN Benign prostatic hypertrophy -Continue home dose of tamsulosin GERD -Continue home dose of omeprazole History of gout - Continue home dose of allopurinol Vitamin D deficiency/insufficiency -Continue home dose of vitamin D supplementation DVT prophylaxis -TEDs & Sequentials due to low platelets VS,Mónica, I+O VS, Mónica, I+O Laboratory Tests 10/27/20 06:18 10/27/20 06:23 Vital Signs Date Time Temp Pulse Resp B/P (MAP) Pulse Ox O2 Delivery O2 Flow Rate FiO2 10/27/20 14:00 97.6 63 19 111/51 (71) 95 Room Air I&O- Last 24 Hours up to 6 AM 10/27/20 06:00 Intake Total 750 ml Output Total 1225 ml Balance -475 ml ALEJANDRINA HOFF DO Oct 27, 2020 16:02
[2020-10-27] MEDS ORDERED: NULYTELY SOLN 4000ML BTL PO ONE (18:00)
[2020-10-27] MEDS: DOCUSATE SODIUM 100MG CAPSULE PO SCH (21:00)
[2020-10-27] MEDS: TELMISARTAN 20 MG TAB PO SCH (21:45)
[2020-10-27] MEDS: ASPIRIN 81MG ENTERIC TABLET PO SCH (21:45)
[2020-10-27] MEDS: ROSUVASTATIN 10 MG TAB (CRESTOR) PO SCH (21:45)
[2020-10-27] MEDS: TAMSULOSIN 0.4 MG CAP PO SCH (21:45)
[2020-10-27] MEDS ORDERED: FUROSEMIDE 40MG/4ML VIAL (J1940) IV ONE (23:45)
[2020-10-28] VITALS (8 sets, daily range): BP systolic 126–159; BP diastolic 52–87
[2020-10-28 04:24] LABS: HEMATOCRIT 30.4 % (42.0-52.0); MEAN CORPUSCULAR HEMOGLOBIN 31.3 pg (27.0-33.0); MEAN CORPUSCULAR HGB CONC 33.2 g/dl (32.0-36.5); MEAN CORPUSCULAR VOLUME 94.1 fl (80.0-96.0); RED BLOOD COUNT 3.23 10^6/uL (4.30-6.10); WHITE BLOOD COUNT 5.3 10^3/uL (4.0-10.0)
[2020-10-28 04:27] LABS: HEMOGLOBIN 10.1 g/dl (13.5-17.5); PLATELET COUNT, AUTOMATED 65 10^3/uL (150-450)
[2020-10-28 05:08] LABS: BLOOD UREA NITROGEN 49 MG/DL (7-18); CALCIUM LEVEL 7.8 MG/DL (8.8-10.2); CARBON DIOXIDE LEVEL 28 MEQ/L (21-32); CHLORIDE LEVEL 99 MEQ/L (98-107); CREATININE FOR GFR 0.87 MG/DL (0.70-1.30); GLOMERULAR FILTRATION RATE > 60.0 (>42); GLUCOSE, FASTING 103 MG/DL (70-100); POTASSIUM SERUM 5.4 MEQ/L (3.5-5.1); SODIUM LEVEL 133 MEQ/L (136-145)
[2020-10-28] MEDS: HumaLOG INSULIN (NovoLOG) PER UNIT SC SCH ×4 (07:30→20:57)
[2020-10-28] MEDS: MULTIVITAMINS/MINERALS THERAP 1 TAB PO SCH (09:00)
[2020-10-28] MEDS: METAMUCIL (PSYLLIUM) PACKET PO SCH (09:00)
[2020-10-28] MEDS: DOCUSATE SODIUM 100MG CAPSULE PO SCH ×2 (09:00→21:03)
[2020-10-28] MEDS: VITAMIN D 1,000 INTERNATIONAL UNITS TABLET PO SCH (09:00)
[2020-10-28] MEDS: LEVEMIR (INSULIN DETEMIR) 1 UNITS/0.01ML SC SCH (09:00)
--- NOTE | 2020-10-28 11:04 | ROOR ---
Patient Name: Hank Vilchis Procedure Date: 10/28/2020 10:09 AM Date of : 1950 Age: 70 Room: [facility] Gender: Male Note Status: Finalized Procedure: Upper Endoscopy + Biopsies Indications: Unexplained iron deficiency anemia Providers: Micha Zhao MD Referring MD: 2. Inpatient 2. Inpatient, WENDY GARCIA MD Requesting Provider: Medicines: Monitored Anesthesia Care Complications: No immediate complications. Procedure: Pre-Anesthesia Assessment: - The heart rate, respiratory rate, oxygen saturations, blood pressure, adequacy of pulmonary ventilation, and response to care were monitored throughout the procedure. The Endoscope was introduced through the mouth, and advanced to the second part of duodenum. The upper GI endoscopy was accomplished without difficulty. The patient tolerated the procedure well. Findings: The Z-line was irregular and was found 40 cm from the incisors. Multiple biopsies were obtained with cold forceps for evaluation to rule out Herrera's Esophagus randomly at the gastroesophageal junction. A small hiatal hernia was present. No other significant abnormalities were identified in a careful examination of the stomach. The exam of the duodenum was otherwise normal. Biopsies for histology were taken with a cold forceps in the first portion of the duodenum for evaluation of celiac disease. The exam was otherwise without abnormality. Impression: - Z-line irregular, 40 cm from the incisors. - Small hiatal hernia. - The examination was otherwise normal. - Multiple biopsies were obtained at the gastroesophageal junction. - Biopsies were taken with a cold forceps for evaluation of celiac disease. - The examination was otherwise normal. Recommendation: - Patient has a contact number available for emergencies. The signs and symptoms of potential delayed complications were discussed with the patient. Return to normal activities tomorrow. Written discharge instructions were provided to the patient. - Resume previous diet. - Discharge patient to home. - Follow an antireflux regimen. - Continue present medications. - Await pathology results. - Telephone GI clinic for pathology results in 1 week. - Return to referring physician. - The findings and recommendations were discussed with the patient. Procedure Code(s): --- Professional --- 33932, Esophagogastroduodenoscopy, flexible, transoral; with biopsy, single or multiple Diagnosis Code(s): --- Professional --- K22.8, Other specified diseases of esophagus K44.9, Diaphragmatic hernia without obstruction or gangrene D50.9, Iron deficiency anemia, unspecified CPT copyright 2019 [employer]. All rights reserved. The codes documented in this report are preliminary and upon supervisor residential review may be revised to meet current compliance requirements. Micha Zhao MD Micha Zhao MD 10/28/2020 11:04:23 AM Electronically signed by Micha Zhao MD Number of Addenda: 0 Note Initiated On: 10/28/2020 10:09 AM Estimated Blood Loss: Estimated blood loss: none.
--- NOTE | 2020-10-28 11:08 | ROOR ---
Patient Name: Hank Vilchis Procedure Date: 10/28/2020 10:11 AM Date of : 1950 Age: 70 Room: [facility] Gender: Male Note Status: Finalized Procedure: Total Colonoscopy to Cecum + Cold Snare Polypectomy + Hemoclips Indications: Unexplained iron deficiency anemia Providers: Micha Zhao MD Referring MD: 2. Inpatient 2. Inpatient, WENDY GARCIA MD Requesting Provider: Medicines: Monitored Anesthesia Care Complications: No immediate complications. Procedure: Pre-Anesthesia Assessment: - The heart rate, respiratory rate, oxygen saturations, blood pressure, adequacy of pulmonary ventilation, and response to care were monitored throughout the procedure. The Colonoscope was introduced through the anus and advanced to the cecum, identified by appendiceal orifice and ileocecal valve. The colonoscopy was performed without difficulty. The patient tolerated the procedure well. The quality of the bowel preparation was good. Findings: The perianal and digital rectal examinations were normal. Non-bleeding internal hemorrhoids were found during retroflexion. The hemorrhoids were small and Grade I (internal hemorrhoids that do not prolapse). Multiple small and large-mouthed diverticula were found in the recto-sigmoid colon, sigmoid colon and descending colon. Multiple sessile polyps were found in the ascending colon. The polyps were small in size. These polyps were removed with a cold snare. Resection and retrieval were complete. To prevent bleeding after the polypectomy, four hemostatic clips were successfully placed. There was no bleeding at the end of the procedure. The exam was otherwise without abnormality on direct and retroflexion views. Impression: - Non-bleeding internal hemorrhoids. - Diverticulosis in the recto-sigmoid colon, in the sigmoid colon and in the descending colon. - Multiple small polyps in the ascending colon, removed with a cold snare. Resected and retrieved. Clips were placed. - The examination was otherwise normal on direct and retroflexion views. - The exam was otherwise normal to the cecum. Recommendation: - Patient has a contact number available for emergencies. The signs and symptoms of potential delayed complications were discussed with the patient. Return to normal activities tomorrow. Written discharge instructions were provided to the patient. - High fiber diet. - Continue present medications. - Await pathology results. - Telephone GI clinic for pathology results in 1 week. - Return to referring physician. - Return patient to [facility] for ongoing care. - The findings and recommendations were discussed with the patient. Procedure Code(s): --- Professional --- 03892, Colonoscopy, flexible; with removal of tumor(s), polyp(s), or other lesion(s) by snare technique Diagnosis Code(s): --- Professional --- K64.0, First degree hemorrhoids K63.5, Polyp of colon D50.9, Iron deficiency anemia, unspecified K57.30, Diverticulosis of large intestine without perforation or abscess without bleeding CPT copyright 2019 [employer]. All rights reserved. The codes documented in this report are preliminary and upon auditing coder review may be revised to meet current compliance requirements. Micha Zhao MD Micha Zhao MD 10/28/2020 11:07:25 AM Electronically signed by Micha Zhao MD Number of Addenda: 0 Note Initiated On: 10/28/2020 10:11 AM Estimated Blood Loss: Estimated blood loss: none.
[2020-10-28] MEDS ORDERED: LEVEMIR (INSULIN DETEMIR) 1 UNITS/0.01ML SC ONE (12:00)
[2020-10-28] MEDS: OMEPRAZOLE 20 MG CAP PO SCH (12:57)
[2020-10-28] MEDS: allopurinoL 100 MG TAB PO SCH (12:57)
[2020-10-28] MEDS: PRIMIDONE 25MG PER 1/2 TABLET PO SCH ×2 (12:57→21:02)
[2020-10-28] MEDS: FUROSEMIDE 40 MG TAB PO SCH (12:58)
[2020-10-28] MEDS: SERTRALINE HCL 50 MG TAB PO SCH (12:58)
--- NOTE | 2020-10-28 14:30 | IPNPDOC ---
Text Note Date of Service The patient was seen on 10/28/20. NOTE Hospitalist Progress Note Subjective: The patient is once again pleasant to speak with this morning. He did finish getting his 2 units of blood last night, and has completed his prep, and is ready to go down for his EGD and colonoscopy. Apparently he was feeling somewhat short of breath overnight, and the 19 gave him a dose of Lasix, at this time his breathing is feeling better, and I do not perceive any crackles at this time. Additionally, he is feeling quite cold, and he has a low measured temperature. I suspect that this is a combination of giving him 2 units of blood at room temperature, and giving him GoLYTELY. I suspect that he is actually cold, but the reading from the rectal thermometer is even lower because we're probably measuring the temperature of the GoLYTELY (since it is passing through him quite quickly). He has a warming blanket on right now. Objective: General: Awake, alert, oriented 3. Not in any acute distress. HEENT: Head normocephalic, atraumatic, sclera are nonicteric. Hearing is grossly intact to conversation. Respiratory: Clear to auscultation bilaterally with no wheezes, rales, or rhonchi. Cardiovascular: Regular rate and rhythm, with no rubs, gallops, or murmur. Abdomen: Soft, nontender, nondistended, no hepatosplenomegaly appreciated. Bowel sounds present. Extremities: 2+ pulses in the radial and dorsalis pedis bilaterally. No evidence of clubbing or cyanosis. Assessment/Plan: Acute worsening of chronic right-sided deficits Syringomyelia - MRI of head, cervical spine, thoracic spine, and lumbar spine are unchanged from prior - PT/OT are working with the patient, their input is greatly appreciated - PFS consult for evaluation regarding possible placement if necessary - Continue home dose of primidone Iron deficiency anemia High suspicion for GI Bleed/ Blood loss anemia Thrombocytopenia - Immature platelet fraction is elevated indicating that marrow response is decent, and more likely thrombocytopenia is due to destruction or loss (again, concern for GI bleed) - Upper and lower endoscopy today at 7:45 AM - 2 units of leukocyte reduced PRBC given 10/27/20 for anemia <8 HH -He was just given an iron infusion twice prior to admission (on the two fridays prior to admission on 10/18 & 10/25 per report from ) . Will hold oral iron supplementation at this time. Hypothermia -Likely due to administration of exogenous blood and artificially lower reading of rectal temperature due to administration of GoLYTELY - His temperature has now improved since returning back from the endoscopy suite - Continue to monitor Diabetes mellitus type 2 -Continue home dose of Levemir Obstructive sleep apnea with CPAP - May use home CPAP machine Hypertension -Continue home dose of furosemide & telmisartan Hyperlipidemia -Continue home dose of rosuvastatin Depression/Anxiety -Continue home dose of sertraline -Continue home dose of hydroxyzine CAD -Continue home dose of 81 mg aspirin - Nitroglycerin PRN Benign prostatic hypertrophy -Continue home dose of tamsulosin GERD -Continue home dose of omeprazole History of gout - Continue home dose of allopurinol Vitamin D deficiency/insufficiency -Continue home dose of vitamin D supplementation DVT prophylaxis -TEDs & Sequentials due to low platelets Disposition: And patient admitted for worsening right-sided weakness. Repeat MRI scans do not show any progression of syringomyelia. Going to endoscopy/colonoscopy today to evaluate for bleeding. Otherwise, will put in an order for him to be screened for ARU, perhaps he may be a candidate to go there in the next 1-2 days. VS,Fishbone, I+O VS, Fishbone, I+O Laboratory Tests 10/28/20 04:06 Vital Signs Date Time Temp Pulse Resp B/P (MAP) Pulse Ox O2 Delivery O2 Flow Rate FiO2 10/28/20 14:00 97.9 85 17 159/73 (101) 93 Room Air 10/28/20 02:54 5.0 I&O- Last 24 Hours up to 6 AM 10/28/20 06:00 Intake Total 2150 ml Output Total 600 ml Balance 1550 ml ALEJANDRINA HOFF DO Oct 28, 2020 14:30
[2020-10-28] MEDS: ASPIRIN 81MG ENTERIC TABLET PO SCH (21:02)
[2020-10-28] MEDS: ROSUVASTATIN 10 MG TAB (CRESTOR) PO SCH (21:03)
[2020-10-28] MEDS: TAMSULOSIN 0.4 MG CAP PO SCH (21:03)
[2020-10-28] MEDS: TELMISARTAN 20 MG TAB PO SCH (21:03)
[2020-10-29 02:00] VITALS: BP 140/67
[2020-10-29 06:00] VITALS: BP 121/51
[2020-10-29 07:12] LABS: HEMATOCRIT 26.5 % (42.0-52.0); HEMOGLOBIN 8.9 g/dl (13.5-17.5); MEAN CORPUSCULAR HEMOGLOBIN 31.4 pg (27.0-33.0); MEAN CORPUSCULAR HGB CONC 33.6 g/dl (32.0-36.5); MEAN CORPUSCULAR VOLUME 93.6 fl (80.0-96.0); PLATELET COUNT, AUTOMATED 81 10^3/uL (150-450); RED BLOOD COUNT 2.83 10^6/uL (4.30-6.10); WHITE BLOOD COUNT 5.6 10^3/uL (4.0-10.0)
[2020-10-29] MEDS: HumaLOG INSULIN (NovoLOG) PER UNIT SC SCH ×4 (07:30→21:00)
[2020-10-29 07:35] LABS: BLOOD UREA NITROGEN 51 MG/DL (7-18); CALCIUM LEVEL 8.2 MG/DL (8.8-10.2); CARBON DIOXIDE LEVEL 30 MEQ/L (21-32); CHLORIDE LEVEL 102 MEQ/L (98-107); CREATININE FOR GFR 1.14 MG/DL (0.70-1.30); GLOMERULAR FILTRATION RATE > 60.0 (>42); GLUCOSE, FASTING 58 MG/DL (70-100); POTASSIUM SERUM 5.4 MEQ/L (3.5-5.1); SODIUM LEVEL 136 MEQ/L (136-145)
[2020-10-29] MEDS ORDERED: DEXTROSE 50% 50 ML SYRINGE IV STA (07:39)
[2020-10-29] MEDS ORDERED: CALCIUM GLUCONATE 1,000 MG in D5W MINI-BAG PLUS 100 ML IV ONE (08:00)
--- NOTE | 2020-10-29 08:55 | IPN ---
PROGRESS NOTE DATE: 10/29/2020 SUBJECTIVE: The patient denies any back pain radiating down the legs. He denies any lower extremity weakness. He has been working with physical therapy. The patient also denies bright red blood per rectum, melena, black tarry stools, dizziness, lightheadedness, shortness of breath, chest pain, pressure or tightness, and dyspnea on exertion. The patient's anemia has improved from 7.5 on admission to 10.0 status post two units red blood cell (RBC) transfusion. Esophagogastroduodenoscopy (EGD) showed a small hiatal hernia and colonoscopy showed diverticulosis with colonic polyps and hemorrhoids with recommendations for high-fiber diet. The patient's hemoglobin today is 8.9 and 26.5 hematocrit; chronic thrombocytopenia with platelet count of 73-81 with no signs of overt bleeding. OBJECTIVE: PHYSICAL EXAMINATION: Vital signs: Temperature 98, pulse 68, respiratory rate 20, blood pressure 121/51, 98%. Currently on BiPAP. Generally: Slight pallor. No icterus, no jaundice. The patient has no use of respiratory accessory muscles. No stridor. No jugular venous distension (JVD) or thyromegaly. Thick neck. Dry mucous membranes. Lungs: Diminished. No wheezing. Coarse rhonchi and fine crackles at bilateral bases. Heart: S1, S2; sinus rhythm. No murmurs, rubs or gallops. Abdomen: Obese, soft, nontender, nondistended. No hepatosplenomegaly or fluid wave. Extremities: Chronic 1+ edema. No cyanosis or clubbing. LABORATORY DATA: White count 5.6, hemoglobin 8.9, hematocrit 26, platelet count 81; previous platelet count 65. Sodium 136, potassium 5.4, chloride 102, bicarb 30, BUN 51, creatinine 1.14, glucose of 58. ASSESSMENT AND PLAN: This 70-year-old male admitted on 10/26/2020 with past medical history significant for syringomyelia with right-sided deficit, gait instability, type 2 diabetes, obstructive sleep apnea (LIANNA) with CPAP, hypertension, iron-deficiency anemia, hyperlipidemia, depression, benign prostatic hypertrophy (BPH), low testosterone, anxiety, history of gout found to be anemic with worsening right-sided weakness. IMPRESSION: 1. Syringomyelia with worsening of chronic right-sided deficit. Patient's MRI of the head, cervical spine, thoracic and lumbar spine was negative and unchanged from prior examination. physical therapy (PT), occupational therapy (OT), acute rehabilitation unit (ARU) have been consulted. Continue on primidone. 2. Anemia, status post esophagogastroduodenoscopy (EGD) and colonoscopy by Dr. Zhao with hiatal hernia, diverticulosis, colonic polyps status post clip, and hemorrhoids noted. Hemoglobin is still 8 today from 10 yesterday with no signs of overt bleeding. Continue to monitor hemoglobin and hematocrit and transfuse as needed. Status post two units red blood cells (RBC) transfusion. Had received iron in the past. Follow with the tobacco stemmer machine/oncologist. 3. Type 2 diabetes currently with low glucose. Adjust and lower down Levemir insulin for better glycemic control. 4. Obstructive sleep apnea, compliant with his CPAP machine. 5. Hypertension, on telmisartan and furosemide. 6. Hyperlipidemia. Continue on Rosuvastatin. 7. Depression, anxiety on sertraline and hydroxyzine. 8. Coronary artery disease (CAD); was on aspirin; may be continued on 81 mg and start on proton pump inhibitor (PPI). 9. Benign prostatic hypertrophy (BPH), on tamsulosin. 10. Reflux, on Prilosec. 11. Gout, on allopurinol. 12. Vitamin D insufficiency on supplement. 13. Diverticulosis/internal hemorrhoids/hiatal hernia, currently with anemia. Start on PPI, iron supplements, transfuse as needed; status post esophagogastroduodenoscopy (EGD), colonoscopy. 14. Hyponatremia, resolved. 15. Hyperkalemia; trial of Kayexalate; repeat potassium. MTDD
[2020-10-29] MEDS: OMEPRAZOLE 20 MG CAP PO SCH (09:13)
[2020-10-29] MEDS: MULTIVITAMINS/MINERALS THERAP 1 TAB PO SCH (09:13)
[2020-10-29] MEDS: LEVEMIR (INSULIN DETEMIR) 1 UNITS/0.01ML SC SCH (09:13)
[2020-10-29] MEDS: allopurinoL 100 MG TAB PO SCH (09:13)
[2020-10-29] MEDS: DOCUSATE SODIUM 100MG CAPSULE PO SCH ×2 (09:13→21:12)
[2020-10-29] MEDS: FUROSEMIDE 40 MG TAB PO SCH (09:14)
[2020-10-29] MEDS: SERTRALINE HCL 50 MG TAB PO SCH (09:14)
[2020-10-29] MEDS: METAMUCIL (PSYLLIUM) PACKET PO SCH (09:14)
[2020-10-29] MEDS: PRIMIDONE 25MG PER 1/2 TABLET PO SCH ×2 (09:19→21:12)
[2020-10-29] MEDS: VITAMIN D 1,000 INTERNATIONAL UNITS TABLET PO SCH (09:21)
[2020-10-29 10:00] VITALS: BP 130/60
[2020-10-29] MEDS ORDERED: SOD POLYSTYRENE SULFONATE SUSP 15 GM/60 ML UD PO ONE (11:00)
[2020-10-29 14:00] VITALS: BP 121/20
[2020-10-29] MEDS ORDERED: FUROSEMIDE 40MG/4ML VIAL (J1940) IV ONE (17:00)
[2020-10-29] MEDS ORDERED: metOLazone 5 MG TAB PO ONE (17:00)
--- NOTE | 2020-10-29 17:13 | IPNPDOC ---
Date Seen The patient was seen on 10/29/20. Progress Note addendum to progress note: syringomyelia, essential tremors, chronic debility, gait abnormality: -per Neurologist monorail operator, Dr. Ramirez, no inpt need for further testing or medications. outpt referral to Neurosurgery at [place], [place] Dr. Posey sent by [facility] Neurology [facility]. Neurosx office to call family with appt. VS, I&O, 24H, Fishbone Vital Signs/I&O Vital Signs Date Time Temp Pulse Resp B/P (MAP) Pulse Ox O2 Delivery O2 Flow Rate FiO2 10/29/20 14:00 98.7 74 18 121/20 (53) 93 10/29/20 06:00 NIPPV (BIPAP/CPAP) 10/28/20 21:10 1.0 I&O- Last 24 Hours up to 6 AM 10/29/20 06:00 Intake Total 1540 ml Output Total 950 ml Balance 590 ml Laboratory Data 24H LABS Laboratory Tests 2 10/28/20 20:24: Bedside Glucose (Misc Panel) 112H 10/29/20 06:36: Nucleated Red Blood Cells % (auto) 0.0, Immature Platelet Fraction 10.9, Anion Gap 4L, Glomerular Filtration Rate > 60.0, Calcium Level 8.2L 10/29/20 12:04: Bedside Glucose (Misc Panel) 67L 10/29/20 12:53: Bedside Glucose (Misc Panel) 96 CBC/BMP Laboratory Tests 10/29/20 06:36 BRITTANI MENDEZ MD Oct 29, 2020 17:13
[2020-10-29] MEDS: TAMSULOSIN 0.4 MG CAP PO SCH (21:12)
[2020-10-29] MEDS: ASPIRIN 81MG ENTERIC TABLET PO SCH (21:12)
[2020-10-29] MEDS: ROSUVASTATIN 10 MG TAB (CRESTOR) PO SCH (21:12)
[2020-10-29 22:00] VITALS: BP 143/57
[2020-10-30] MEDS: FUROSEMIDE 40MG/4ML VIAL (J1940) IV SCH ×4 (00:20→18:13)
[2020-10-30 06:00] VITALS: BP 147/60
[2020-10-30 06:31] LABS: HEMATOCRIT 29.4 % (42.0-52.0); HEMOGLOBIN 9.8 g/dl (13.5-17.5); MEAN CORPUSCULAR HGB CONC 33.3 g/dl (32.0-36.5); RED BLOOD COUNT 3.16 10^6/uL (4.30-6.10); WHITE BLOOD COUNT 8.7 10^3/uL (4.0-10.0)
[2020-10-30 06:32] LABS: PLATELET COUNT, AUTOMATED 93 10^3/uL (150-450)
[2020-10-30 06:51] LABS: BLOOD UREA NITROGEN 47 MG/DL (7-18); CALCIUM LEVEL 9.2 MG/DL (8.8-10.2); CARBON DIOXIDE LEVEL 33 MEQ/L (21-32); CHLORIDE LEVEL 99 MEQ/L (98-107); CREATININE FOR GFR 1.19 MG/DL (0.70-1.30); GLOMERULAR FILTRATION RATE > 60.0 (>42); GLUCOSE, FASTING 59 MG/DL (70-100); POTASSIUM SERUM 3.9 MEQ/L (3.5-5.1); SODIUM LEVEL 137 MEQ/L (136-145)
[2020-10-30] MEDS: HumaLOG INSULIN (NovoLOG) PER UNIT SC SCH ×4 (07:30→21:00)
[2020-10-30] MEDS: METAMUCIL (PSYLLIUM) PACKET PO SCH (08:21)
[2020-10-30] MEDS: DOCUSATE SODIUM 100MG CAPSULE PO SCH ×2 (08:21→21:32)
[2020-10-30] MEDS: allopurinoL 100 MG TAB PO SCH (08:22)
[2020-10-30] MEDS: SERTRALINE HCL 50 MG TAB PO SCH (08:22)
[2020-10-30] MEDS: OMEPRAZOLE 20 MG CAP PO SCH (08:22)
[2020-10-30] MEDS: PRIMIDONE 25MG PER 1/2 TABLET PO SCH ×2 (08:22→21:32)
[2020-10-30] MEDS: VITAMIN D 1,000 INTERNATIONAL UNITS TABLET PO SCH (08:22)
[2020-10-30] MEDS: MULTIVITAMINS/MINERALS THERAP 1 TAB PO SCH (08:23)
[2020-10-30] MEDS: LEVEMIR (INSULIN DETEMIR) 1 UNITS/0.01ML SC SCH (08:23)
[2020-10-30] MEDS ORDERED: LEVEMIR (INSULIN DETEMIR) 1 UNITS/0.01ML SC SCH (09:00)
--- NOTE | 2020-10-30 09:23 | IPNPDOC ---
Date Seen The patient was seen on 10/30/20. Progress Note S: gross hematuria on condom cath. no c/o dizziness, sob. 2.6l urine output after lasix. hgb 9 O: PE vitals: see below Generally: Slight pallor. No icterus, no jaundice. The patient has no use of respiratory accessory muscles. No stridor. No jugular venous distension (JVD) or thyromegaly. Thick neck. Dry mucous membranes. Lungs: Diminished. Heart: S1, S2; sinus rhythm. No murmurs, rubs or gallops. Abdomen: Obese, soft, nontender, nondistended. No hepatosplenomegaly or fluid wave. Extremities: Chronic edema improved. No cyanosis or clubbing. LABORATORY DATAsee below ASSESSMENT AND PLAN: This 70-year-old male admitted on 10/26/2020 with past medical history significant for syringomyelia with right-sided deficit, gait instability, type 2 diabetes, obstructive sleep apnea (LIANNA) with CPAP, hypertension, iron-deficiency anemia, hyperlipidemia, depression, benign prostatic hypertrophy (BPH), low testosterone, anxiety, history of gout found to be anemic with worsening right-sided weakness. IMPRESSION: Syringomyelia with worsening of chronic right-sided deficit. Patient's MRI of the head, cervical spine, thoracic and lumbar spine was negative and unchanged from prior examination. Essential tremors Gross Hematuria acute blood loss Anemia, status post esophagogastroduodenoscopy (EGD) and colonoscopy by Dr. Zhao with hiatal hernia, diverticulosis, colonic polyps status post clip, and hemorrhoids noted. Type 2 diabetes currently with low glucose. Obstructive sleep apnea, compliant with his CPAP machine. Hypertension, on telmisartan and furosemide. Hyperlipidemia. Continue on Rosuvastatin. Depression, anxiety on sertraline and hydroxyzine. Coronary artery disease (CAD); was on aspirin; may be continued on 81 mg and start on proton pump inhibitor (PPI). Benign prostatic hypertrophy (BPH), on tamsulosin. Reflux, on Prilosec. Gout, on allopurinol. Vitamin D insufficiency on supplement. Diverticulosis/internal hemorrhoids/hiatal hernia, currently with anemia. Start on PPI, iron supplements, transfuse as needed; status post esophagogastroduodenoscopy (EGD), colonoscopy. Hyperkalemia; trial of Kayexalate; repeat potassium. PLAN: physical therapy (PT), occupational therapy (OT), acute rehabilitation unit (ARU) have been consulted. Continue on primidone for essential tremors. no parkinson's per Dr. Ramirez neuro sound engineer audio control 10/29/20. Referred to Dr. tere gomez as outpt fax [phone] resent today. Continue to monitor hemoglobin and hematocrit and transfuse as needed. Status post two units red blood cells (RBC) transfusion. Had received iron in the past.check ua urine cx irrigate w ns. if does not clear, dc asa, and start cbi. bladder us to r/o mass. if recurrent hematuria w/o clearing and dropping hgb, urology consult for cystoscopy. VS, I&O, 24H, Fishbone Vital Signs/I&O Vital Signs Date Time Temp Pulse Resp B/P (MAP) Pulse Ox O2 Delivery O2 Flow Rate FiO2 10/30/20 06:00 97.8 66 22 147/60 (89) 96 10/29/20 22:00 1.0 10/29/20 06:00 NIPPV (BIPAP/CPAP) I&O- Last 24 Hours up to 6 AM 10/30/20 06:00 Intake Total 904.5 ml Output Total 2585 ml Balance -1680.5 ml Laboratory Data 24H LABS Laboratory Tests 2 10/29/20 12:04: Bedside Glucose (Misc Panel) 67L 10/29/20 12:53: Bedside Glucose (Misc Panel) 96 10/29/20 17:27: Bedside Glucose (Misc Panel) 114H 10/29/20 20:32: Bedside Glucose (Misc Panel) 115H 10/30/20 06:10: Nucleated Red Blood Cells % (auto) 0.0, Anion Gap 5L, Glomerular Filtration Rate > 60.0, Calcium Level 9.2 10/30/20 06:17: Bedside Glucose (Misc Panel) 60L 10/30/20 08:10: Bedside Glucose (Misc Panel) 114H CBC/BMP Laboratory Tests 10/29/20 18:36 10/30/20 06:10 BRITTANI MENDEZ MD Oct 30, 2020 09:14
[2020-10-30 14:00] VITALS: BP 151/62
--- NOTE | 2020-10-30 16:37 | REP ---
INDICATION: hematuria r/o bladder mass. COMPARISON: Comparison sonography April 15, 2020.. TECHNIQUE: Limited pelvic/bladder sonography. Lamas catheter in place. FINDINGS: Lamas balloon is noted. No other intraluminal mass effect is seen within the urinary bladder. Bladder browning are smooth. Prevoid bladder volume is calculated at 422 mL. Postvoid bladder volume is 70 mL. 17% postvoid residual. Postvoid imaging was acquired after unclamping the Lamas catheter for approximately 5 minutes period IMPRESSION: No intraluminal or mural abnormality noted in the bladder. <Electronically signed by Carlos Enrique Cannon > 10/30/20 [id number]
[2020-10-30 18:11] LABS: HEMATOCRIT 30.5 % (42.0-52.0); HEMOGLOBIN 10.3 g/dl (13.5-17.5)
[2020-10-30] MEDS: hydrOXYzine 10 MG TAB PO PRN (18:13)
[2020-10-30 18:29] LABS: BLOOD UREA NITROGEN 49 MG/DL (7-18); CARBON DIOXIDE LEVEL 37 MEQ/L (21-32); CHLORIDE LEVEL 97 MEQ/L (98-107); CREATININE FOR GFR 1.26 MG/DL (0.70-1.30); GLOMERULAR FILTRATION RATE > 60.0 (>42); GLUCOSE, FASTING 108 MG/DL (70-100); MAGNESIUM LEVEL 2.1 MG/DL (1.8-2.4); POTASSIUM SERUM 3.9 MEQ/L (3.5-5.1); SODIUM LEVEL 138 MEQ/L (136-145)
[2020-10-30] MEDS ORDERED: SENOKOT S TAB PO ONE (18:30)
[2020-10-30] MEDS ORDERED: MOM 30ML SUSPENSION UDC PO ONE (18:30)
[2020-10-30] MEDS ORDERED: SENOKOT S TAB PO PRN (18:30)
[2020-10-30] MEDS ORDERED: MOM 30ML SUSPENSION UDC PO PRN (18:30)
[2020-10-30] MEDS: ROSUVASTATIN 10 MG TAB (CRESTOR) PO SCH (21:32)
[2020-10-30] MEDS: TAMSULOSIN 0.4 MG CAP PO SCH (21:32)
[2020-10-30 22:00] VITALS: BP 143/64
[2020-10-31] MEDS: FUROSEMIDE 40MG/4ML VIAL (J1940) IV SCH ×2 (00:15→06:17)
[2020-10-31 06:00] VITALS: BP 136/66
[2020-10-31 06:59] LABS: HEMATOCRIT 30.2 % (42.0-52.0); HEMOGLOBIN 10.3 g/dl (13.5-17.5); MEAN CORPUSCULAR HEMOGLOBIN 31.6 pg (27.0-33.0); MEAN CORPUSCULAR HGB CONC 34.1 g/dl (32.0-36.5); MEAN CORPUSCULAR VOLUME 92.6 fl (80.0-96.0); PLATELET COUNT, AUTOMATED 128 10^3/uL (150-450); RED BLOOD COUNT 3.26 10^6/uL (4.30-6.10); WHITE BLOOD COUNT 10.8 10^3/uL (4.0-10.0)
[2020-10-31 07:21] LABS: CALCIUM LEVEL 9.4 MG/DL (8.8-10.2); CREATININE FOR GFR 1.49 MG/DL (0.70-1.30); GLOMERULAR FILTRATION RATE 49.6 (>42); POTASSIUM SERUM 3.9 MEQ/L (3.5-5.1)
[2020-10-31] MEDS: HumaLOG INSULIN (NovoLOG) PER UNIT SC SCH ×4 (07:30→22:37)
[2020-10-31] MEDS ORDERED: ALPRAZolam 0.25 MG TAB PO PRN (07:45)
[2020-10-31] MEDS: PRIMIDONE 25MG PER 1/2 TABLET PO SCH (07:59)
[2020-10-31] MEDS: MULTIVITAMINS/MINERALS THERAP 1 TAB PO SCH (08:00)
[2020-10-31] MEDS: FINASTERIDE 5 MG TAB PO SCH (08:00)
[2020-10-31] MEDS: DOCUSATE SODIUM 100MG CAPSULE PO SCH (08:00)
[2020-10-31] MEDS: SERTRALINE HCL 50 MG TAB PO SCH (08:00)
[2020-10-31] MEDS: allopurinoL 100 MG TAB PO SCH (08:00)
[2020-10-31] MEDS: METAMUCIL (PSYLLIUM) PACKET PO SCH (08:00)
[2020-10-31] MEDS: OMEPRAZOLE 20 MG CAP PO SCH (08:00)
[2020-10-31] MEDS ORDERED: NS 1,000 ML IV ONE (08:00)
[2020-10-31] MEDS: VITAMIN D 1,000 INTERNATIONAL UNITS TABLET PO SCH (08:01)
--- NOTE | 2020-10-31 08:26 | IPN ---
PROGRESS NOTE DATE: 10/31/2020 SUBJECTIVE: Patient says he does not feel well this morning. He has dry, chapped lips. Diuresed 6 liters of urine out yesterday with I.V. Lasix with weight decrease from 112 kg to 108.4 kg. Patient complains of bilateral lower extremity pain with decrease in swelling, says that he chronically has this at home. He has chronic lower extremity ulcers without signs of abscess. Afebrile. No chills. No nausea, no vomiting, abdominal pain. No shortness of breath, chest pain, pressure or tightness. Still complains of generalized weakness. Unable to eat by himself due to persistent weakness of bilateral upper and lower extremities. Still requiring 2 people at least to 3 person maximum assistance. OBJECTIVE: Vital signs: Temperature 98, pulse 89, respiratory rate 20, blood pressure 136/66, 89% on 3 liters nasal cannula. General: Awake, alert, oriented to person and place only, disoriented to time. He currently is still using respiratory accessory muscles, mild, no tracheal deviation. There is no nasal flaring. He has about a 6-7 word conversational dyspnea. There is no pallor, icterus or jaundice. HEENT: Dry mucous membranes, chapped lips. Patient has no pharyngeal erythema. Neck: Cervical lymphadenopathy, no JVD. Lungs: Diminished with bilateral coarse rhonchi. Heart: S1 and S2 sinus rhythm. Abdomen: Obese, soft, nontender, nondistended. Extremities: Positive edema decreased, chronic venous ulcers noted bilaterally with bandages, currently with foam boots. LABORATORY DATA: White count 10, hemoglobin 10, hematocrit 30, platelet count 128. Sodium 129, potassium 3.9, chloride 94, bicarb 37, BUN 52, creatinine 1.49, glucose 104. Urine output was 6.06 liters. Current weight is 108.4-108.7 kg. He was negative 4.6 liters out yesterday, negative 1130 today. ASSESSMENT AND PLAN: 1. This is a 70-year-old male with history of syringomyelia with chronic right sided deficit: MRI of the cervical spine, brain, thoracic, lumbar spine were unchanged from prior exam. Currently with worsening weakness requiring 2 person assistance. PT/OT has been consulted. 2. Essential tremors: On chronic primidone. 3. Gross hematuria: Has cleared with bladder irrigation. Lamas catheter has been placed. No signs of infection. No need for acute antibiotics at this time. Bladder scan was negative. He continues to have urine retention therefore will keep the Lamas catheter for now. He is on Flomax, but now that he has gross hematuria will change to Proscar and Flomax has been discontinued. 4. Acute blood loss anemia secondary to gross hematuria, also possible chronic GI bleed: EGD and colonoscopy done by Dr. Zhao showed hiatal hernia, diverticulosis, colonic polyps status post clipping and hemorrhoids. Patient currently has normal hemoglobin, it has not decreased even though he had gross hematuria. No acute indication for RBC transfusion. 5. Type-2 diabetes with hyperglycemia for the past 2 days: His Levemir insulin has been decreased to 10 units every morning. Current glucose is 104, 130 yesterday. We will continue to hold the long acting insulin due to decrease in oral intake. 6. Acute metabolic encephalopathy with acute kidney injury, recent GI bleed and gross hematuria: Patient currently is slow to respond. His aspirin has been held due to gross hematuria. MRI of the brain was unchanged from previous. He has no focal deficits currently. 7. Hypertension: On chronic telmisartan. Lasix has been discontinued due to acute kidney injury. 8. Acute kidney injury secondary to Lasix being given for lower extremity edema: Lasix has been discontinued due to worsening creatinine. We will give normal saline at 60 mL per hour times 1 liter and recheck metabolic panel at 2:00 p.m. 9. History of CAD: Aspirin has been held due to gross hematuria. 10. BPH: Flomax discontinued. Proscar given due to hematuria. 11. Chronic urinary retention: Now requiring Lamas catheter. Patient had 600 residual prior to Lamas catheter placement. 12. Gout: On chronic allopurinol. 13. Reflux: On Prilosec. 14. Vitamin D deficiency: On chronic supplement. 15. Metabolic alkalosis secondary to diuresis:
[2020-10-31] MEDS ORDERED: GABAPENTIN 100 MG CAP PO SCH (09:00)
[2020-10-31] MEDS ORDERED: LEVEMIR (INSULIN DETEMIR) 1 UNITS/0.01ML SC SCH (09:00)
[2020-10-31] MEDS: NEOSPORIN TOP OINT 15GM TOP SCH ×2 (09:00→22:48)
--- NOTE | 2020-10-31 09:00 | REP ---
INDICATION: sob. COMPARISON: 10/26/2020 a portable exam TECHNIQUE: AP and lateral views FINDINGS: The technique utilized in obtaining the radiograph has magnified the cardiac silhouette and attenuated the interstitial markings. The superior mediastinal structures are midline. The heart is mildly enlarged. Patchy right basilar opacities persist with right CP angle blunting. The imaged osseous structures are intact. IMPRESSION: No significant change <Electronically signed by Jose Schilling > 10/31/20 [id number]
[2020-10-31 09:34] LABS: ALBUMIN 3.3 GM/DL (3.2-5.2); BILIRUBIN,DIRECT 0.1 MG/DL (0.0-0.2); BILIRUBIN,TOTAL 0.4 MG/DL (0.2-1.0)
--- NOTE | 2020-10-31 12:28 | REP ---
INDICATION: ams. COMPARISON: Comparison CT study September 14, 2020.. TECHNIQUE: Helical scanning is acquired. 5 mm axial images were reformatted. Coronal MPR images were generated. FINDINGS: Bone window settings demonstrate an intact bony calvarium. There is no evidence of skull fracture or incidental bony calvarial lesion. The visualized paranasal sinuses appear clear. No intraorbital abnormality is seen. On soft tissue window setting images; the lateral, third, and fourth ventricles are normal in size and position. Mon-white differentiation pattern is normal above and below the tentorium. There are is no evidence of intracranial hemorrhage. No mass, edema, infarction, or midline shift is seen. No extra-axial fluid collection is appreciated. There is mild generalized volume loss again seen. IMPRESSION: Mild generalized volume loss. Findings unchanged from comparison study September 14, 2020. No acute intracranial abnormality.. <Electronically signed by Carlos Enrique Cannon > 10/31/20 [id number]
[2020-10-31 14:00] VITALS: BP 148/68
[2020-10-31 14:10] VITALS: BP 132/59
[2020-10-31] MEDS ORDERED: VANCOMYCIN HCL 1,000 MG, VIAL MATE ADAPTER 1 EACH in NS 250 ML IV SCH (14:10)
[2020-10-31 14:13] LABS: ABG BASE EXCESS 9.8 (-2.0-2.0); ABG HCO3 34.3 MEQ/L (22.0-26.0); ABG O2 SATURATION 96.6 % (95.0-99.0); ABG PARTIAL PRESSURE CO2 46.4 mmHg (35.0-45.0); ABG PARTIAL PRESSURE O2 83.9 mmHg (75.0-100.0); ABG STANDARD HCO3 33.5 MEQ/L (22.0-26.0); ABG TOTAL CO2 35.8 MEQ/L (23.0-31.0); ABG pH (ARTERIAL) 7.487 UNITS (7.350-7.450)
[2020-10-31 14:39] LABS: CALCIUM LEVEL 9.4 MG/DL (8.8-10.2); CREATININE FOR GFR 1.56 MG/DL (0.70-1.30); GLOMERULAR FILTRATION RATE 47.1 (>42); POTASSIUM SERUM 4.1 MEQ/L (3.5-5.1)
--- NOTE | 2020-10-31 14:52 | IPNPDOC ---
Date Seen The patient was seen on 10/31/20. Progress Note addendum to progress note: Fever of unknown origin 102.5 Acute encephalopathy plan: stat lumbar puncture by anesthesia consent signed by pt's at the bedside LORRI Vilchis ammonia abg cxr ct head wnl ua blood cultures sent procalcitonin esr crp ID consulted ct abd pelvis ct chest w/o contrast ordered empiric vanco zosyn after LP transfer to pcu due to worsening clinical status. VS, I&O, 24H, Fishbone Vital Signs/I&O Vital Signs Date Time Temp Pulse Resp B/P (MAP) Pulse Ox O2 Delivery O2 Flow Rate FiO2 10/31/20 14:10 101.2 90 26 132/59 (83) 93 Venturi Mask 6.0 28 I&O- Last 24 Hours up to 6 AM 10/31/20 06:00 Intake Total 1440 ml Output Total 5450 ml Balance -4010 ml Laboratory Data 24H LABS Laboratory Tests 2 10/30/20 16:57: Bedside Glucose (Misc Panel) 106 10/30/20 17:42: Anion Gap 4L, Glomerular Filtration Rate > 60.0, Calcium Level 9.0, Magnesium Level 2.1 10/30/20 20:49: Bedside Glucose (Misc Panel) 130H 10/31/20 06:37: Procalcitonin 0.10, Prolactin 7.2 10/31/20 06:44: Nucleated Red Blood Cells % (auto) 0.2H, Anion Gap 8, Glomerular Filtration Rate 49.6, Calcium Level 9.4 10/31/20 08:54: Total Bilirubin 0.4, Direct Bilirubin 0.1, Aspartate Amino Transf (AST/SGOT) 102H, Alanine Aminotransferase (ALT/SGPT) 73, Alkaline Phosphatase 131H, Ammonia 30, Total Protein 7.0, Albumin 3.3, Albumin/Globulin Ratio 0.9 10/31/20 11:41: Bedside Glucose (Misc Panel) 118H 10/31/20 12:13: Blood Gas Bicarbonate Standard 33.5H, Arterial Blood pH 7.487H, Arterial Blood Partial Pressure CO2 46.4H, Arterial Blood Partial Pressure O2 83.9, Arterial Blood Total CO2 35.8H, Arterial Blood HCO3 34.3H, Arterial Blood Base Excess 9.8H, Arterial Blood Oxygen Saturation 96.6, Arterial Blood Gas Puncture Site UNKNOWN 10/31/20 14:03: Anion Gap 5L, Glomerular Filtration Rate 47.1, Calcium Level 9.4, C-Reactive Protein, Quantitative 8.26H CBC/BMP Laboratory Tests 10/30/20 17:42 10/31/20 06:44 10/31/20 14:03 Microbiology Microbiology 10/31/20 Blood Culture, Received Pending 10/31/20 Blood Culture, Received Pending BRITTANI MENDEZ MD Oct 31, 2020 14:52
[2020-10-31] MEDS: PIPERACILLIN/TAZOBACTAM SOD 3.375 GM in D5W MINI-BAG PLUS 50 ML IV SCH ×2 (15:48→22:48)
[2020-10-31 15:51] LABS: CSF TUBE# GLU TUBE 1; CSF TUBE# TP TUBE 1; GLUCOSE CSF 73 MG/DL (40-75); TOTAL PROTEIN,CSF 45 MG/DL (15-45)
[2020-10-31 15:58] LABS: APPEARANCE, CSF CLEAR (CLEAR); COLOR, CSF COLORLESS (COLORLESS); CSF TUBE# CELL CNT TUBE 1
[2020-10-31] MEDS ORDERED: VANCOMYCIN HCL 1,000 MG, VIAL MATE ADAPTER 1 EACH in NS 250 ML IV ONE ×2 (17:00→18:00)
[2020-10-31 17:54] VITALS: BP 121/79
--- NOTE | 2020-10-31 19:31 | REPVR ---
PROCEDURE INFORMATION: Exam: CT Chest Without Contrast; Diagnostic Exam date and time: 10/31/2020 6:55 PM Age: 70 years old Clinical indication: Fever; Additional info: Temp 1of 102 of unknown origin 102 TECHNIQUE: Imaging protocol: Diagnostic computed tomography of the chest without contrast. Radiation optimization: All CT scans at this facility use at least one of these dose optimization techniques: automated exposure control; mA and/or kV adjustment per patient size (includes targeted exams where dose is matched to clinical indication); or iterative reconstruction. COMPARISON: CR Chest, 2 view PA, Lat 10/31/2020 8:42 AM FINDINGS: Lungs: Small patchy ground-glass opacities in the right lung. Clinical correlation to exclude multifocal pneumonitis suggested. Dense infiltrate with air bronchograms demonstrated in the right middle lobe and right lower lobe. Differential includes atelectasis and infectious pneumonitis. Compressive atelectasis left lung base. Pleural spaces: Small right and left pleural effusions. Heart: There is moderate atherosclerotic calcification of the coronary arteries. Mediastinal space: Patulous thoracic esophagus. Mild wall thickening in the midthoracic esophagus. Clinical correlation to exclude changes related to reflux or infection suggested. Aorta: There is mild atherosclerosis in the thoracic aorta. Lymph nodes: Unremarkable. No enlarged lymph nodes. Bones/joints: The spine demonstrates mild degenerative changes. Dextroscoliosis. Soft tissues: Unremarkable. IMPRESSION: 1. Small patchy ground-glass opacities in the right lung. Clinical correlation to exclude multifocal pneumonitis suggested. 2. Small right and left pleural effusions. 3. Dense infiltrate with air bronchograms demonstrated in the right middle lobe and right lower lobe. Differential includes atelectasis and infectious pneumonitis. 4. Patulous thoracic esophagus. Mild wall thickening in the midthoracic esophagus. Clinical correlation to exclude changes related to reflux or infection suggested. Electronically signed by: Nicholas Bell On 10/31/2020 19:31:35 PM
--- NOTE | 2020-10-31 19:37 | REPVR ---
PROCEDURE INFORMATION: Exam: CT Abdomen And Pelvis Without Contrast Exam date and time: 10/31/2020 7:14 PM Age: 70 years old Clinical indication: Fever; Additional info: Temp 1of 102 of unknown origin 102 TECHNIQUE: Imaging protocol: Computed tomography of the abdomen and pelvis without contrast. Radiation optimization: All CT scans at this facility use at least one of these dose optimization techniques: automated exposure control; mA and/or kV adjustment per patient size (includes targeted exams where dose is matched to clinical indication); or iterative reconstruction. COMPARISON: BLADDER (LIMITED PELVIC) US 10/30/2020 3:53 PM FINDINGS: Mediastinal space: A small hiatal hernia is present. Liver: Normal. No mass. Gallbladder and bile ducts: Cholelithiasis with thickening of the gallbladder wall and possible intraluminal sludge. No pericholecystic fluid. Clinical correlation to exclude cholecystitis suggested. Pancreas: Normal. No ductal dilation. Spleen: Normal. No splenomegaly. Adrenal glands: Normal. No mass. Kidneys and ureters: Normal. No hydronephrosis. Stomach and bowel: There is increased feces throughout the colon consistent with constipation. Appendix: No evidence of appendicitis. Intraperitoneal space: Unremarkable. No free air. No significant fluid collection. Vasculature: The aortoiliac vessels demonstrate mild atherosclerotic calcification. Lymph nodes: Unremarkable. No enlarged lymph nodes. Urinary bladder: Lamas catheter within a collapsed urinary bladder. Reproductive: The prostate gland demonstrates mild hyperplasia. Bones/joints: Moderate central spinal stenosis L4-L5. Soft tissues: Unremarkable. Other findings: Osteoporosis. Shallow levoscoliosis. IMPRESSION: 1. Cholelithiasis with thickening of the gallbladder wall and possible intraluminal sludge. No pericholecystic fluid. Clinical correlation to exclude cholecystitis suggested. 2. A small hiatal hernia is present. 3. Mild prostatic hyperplasia. 4. There is increased feces throughout the colon consistent with constipation. Electronically signed by: Nicholas Bell On 10/31/2020 19:37:16 PM
[2020-10-31 22:00] VITALS: BP 158/64
--- NOTE | 2020-10-31 22:49 | REPVR ---
PROCEDURE INFORMATION: Exam: MR Head Without Contrast Exam date and time: 10/31/2020 10:40 PM Age: 70 years old Clinical indication: Altered mental status/memory loss; Other: AMS R/O CVA; Prior surgery; Surgery date: 6+ months; Surgery type: Shunt in 80s TECHNIQUE: Imaging protocol: MR of the head without contrast. COMPARISON: MRI-Brain without Contrast 10/26/2020 5:06 PM FINDINGS: Limitations: Examination is limited by motion artifact. Brain: Mild nonspecific T2/FLAIR hyperintensities of the periventricular and deep subcortical white matter, most likely secondary to chronic small vessel ischemic change. No intracranial hemorrhage or extra-axial fluid collection. No evidence of mass effect or midline shift. No restricted diffusion to suggest acute infarct. Cerebral ventricles: Prominence of the ventricles and sulci, likely attributed to parenchymal volume loss. Bones/joints: Unremarkable. Paranasal sinuses: Normal as visualized. No acute sinusitis. Mastoid air cells: No mastoid effusion. Orbital cavity: Unremarkable. Soft tissues: Unremarkable. IMPRESSION: 1. No acute intracranial pathology. 2. Chronic findings, as above. Electronically signed by: Ronni Godwin On 10/31/2020 22:49:13 PM
[2020-10-31] MEDS ORDERED: ACETAMINOPHEN 650 MG SUPP PR PRN (23:20)
[2020-11-01] VITALS: BP 158/64
[2020-11-01] MEDS: PRIMIDONE 25MG PER 1/2 TABLET PO SCH ×4 (00:44→21:00)
[2020-11-01 04:00] VITALS: BP 170/66
[2020-11-01] MEDS: PIPERACILLIN/TAZOBACTAM SOD 3.375 GM in D5W MINI-BAG PLUS 50 ML IV SCH ×4 (04:37→20:36)
[2020-11-01] MEDS: VANCOMYCIN HCL 1,000 MG, VIAL MATE ADAPTER 1 EACH in NS 250 ML IV SCH ×2 (07:12→18:49)
[2020-11-01] MEDS: HumaLOG INSULIN (NovoLOG) PER UNIT SC SCH ×4 (07:30→21:00)
[2020-11-01 08:00] VITALS: BP 168/64
--- NOTE | 2020-11-01 08:14 | IPNPDOC ---
Date Seen The patient was seen on 11/01/20. Progress Note s: yesterday tmax 102 and 101 s/p lp negative for bacteria on vanco /zosyn not responsive not following commands. eyes open w right UE rigidity. o: pe: vitals: see below General: not responsive. eyes open mild distress with mouth open HEENT: Dry mucous membranes, chapped lips. Patient has no pharyngeal erythema. Neck: Cervical lymphadenopathy, no JVD. pinpoint pupils. Lungs: Diminished with bilateral coarse rhonchi. Heart: S1 and S2 sinus rhythm. Abdomen: Obese, soft, nontender, nondistended. Extremities: Positive edema decreased, chronic venous ulcers noted bilaterally A/P: 70-year-old male with history of syringomyelia with chronic right sided deficit: MRI of the cervical spine, brain, thoracic, lumbar spine were unchanged from prior exam. Currently with: Fever -on day #[address] chest: ?right base infiltrate ct abd: gallbladder sludge LP-neg ID consulted ?serotonin syndrome-off SSRI. neuro consulted repeat CT head neg Acute metabolic encephalopathy -on day #2 abx but negative LP worsening weakness/syringomyelia requiring 3 person assistance. PT/OT has been consulted. Essential tremors: discontinued po meds due to risk of aspiration with ams. Gross hematuria: Has cleared with bladder irrigation. Lamas catheter has been placed. No signs of infection. He continues to have urine retention therefore will keep the Lamas catheter for now. on Proscar and Flomax has been discontinued. Acute blood loss anemia secondary to gross hematuria, also possible chronic GI bleed: EGD and colonoscopy done by Dr. Zhao showed hiatal hernia, diverticulosis, colonic polyps status post clipping and hemorrhoids. Patient currently has normal hemoglobin, it has not decreased even though he had gross hematuria. No acute indication for RBC transfusion. Type-2 diabetes ams w risk of aspiration on pureed diet and thin liquids dc insulin due to decreased oral intake Acute kidney injury secondary to Lasix being given for lower extremity edema: Lasix has been discontinued due to worsening creatinine. s/p ns Hypoxia ?new rll aspiration pna/ hcap id consulted on iv vanco zosyn day 2 o2 to keep sat >90% History of CAD: Aspirin has been held due to gross hematuria. BPH: Flomax discontinued. Proscar given due to hematuria. urinary retention: Now requiring Lamas catheter. Gout: dc po meds due to aspiration risk Reflux: On Prilosec. Vitamin D deficiency: On chronic supplement. Metabolic alkalosis secondary to diuresis: VS, I&O, 24H, Fishbone Vital Signs/I&O Vital Signs Date Time Temp Pulse Resp B/P (MAP) Pulse Ox O2 Delivery O2 Flow Rate FiO2 11/01/20 05:10 77 170/66 11/01/20 04:00 4.0 11/01/20 04:00 100.1 18 98 Nasal Cannula 10/31/20 22:00 28 I&O- Last 24 Hours up to 6 AM 11/01/20 06:00 Intake Total 0 ml Output Total 2350 ml Balance -2350 ml Laboratory Data 24H LABS Laboratory Tests 2 10/31/20 08:54: Total Bilirubin 0.4, Direct Bilirubin 0.1, Aspartate Amino Transf (AST/SGOT) 102H, Alanine Aminotransferase (ALT/SGPT) 73, Alkaline Phosphatase 131H, Ammonia 30, Total Protein 7.0, Albumin 3.3, Albumin/Globulin Ratio 0.9 10/31/20 11:41: Bedside Glucose (Misc Panel) 118H 10/31/20 12:13: Blood Gas Bicarbonate Standard 33.5H, Arterial Blood pH 7.487H, Arterial Blood Partial Pressure CO2 46.4H, Arterial Blood Partial Pressure O2 83.9, Arterial Blood Total CO2 35.8H, Arterial Blood HCO3 34.3H, Arterial Blood Base Excess 9.8H, Arterial Blood Oxygen Saturation 96.6, Arterial Blood Gas Puncture Site UNKNOWN 10/31/20 14:03: Erythrocyte Sedimentation Rate 107H, Anion Gap 5L, Glomerular Filtration Rate 47.1, Calcium Level 9.4, C-Reactive Protein, Quantitative 8.26H 10/31/20 15:12: 10/31/20 15:22: CSF Appearance CLEAR, CSF Color COLORLESS, CSF WBC (Auto) 2, CSF RBC (Auto) < 2H, CSF Glucose (Tube 1) TUBE 1, CSF Total Protein (Tube 1) TUBE 1, CSF Cell Count Tube # TUBE 1, CSF Polynuclear WBCs (%) , CSF Glucose 73, CSF Total Protein 45 10/31/20 15:23: Urine Color YELLOW, Urine Appearance HAZY, Urine pH 8.0, Urine Specific Temple 1.010, Urine Protein 1+H, Urine Glucose (UA) NEGATIVE, Urine Ketones NEGATIVE, Urine Blood 3+H, Urine Nitrite NEGATIVE, Urine Bilirubin NEGATIVE, Urine Urobilinogen 0.2, Urine Leukocyte Esterase 1+H, Urine WBC (Auto) 17H, Urine RBC (Auto) TNTCH, Urine Hyaline Casts (Auto) 0, Urine Bacteria (Auto) NEGATIVE, Urine Squamous Epithelial Cells 0, Urine Sperm (Auto) 10/31/20 22:08: Methicillin-Resist S.aureus DNA PCR NOT DETECTED 10/31/20 22:35: Bedside Glucose (Misc Panel) 90 11/01/20 06:12: Bedside Glucose (Misc Panel) 77L CBC/BMP Laboratory Tests 10/31/20 14:03 Microbiology Microbiology 10/31/20 Respiratory Virus Panel (PCR) (LINDA) - Final, Complete 10/31/20 Fungal Smear, Received Pending 10/31/20 Fungal Culture, Received Pending 10/31/20 Viral Culture, Received Pending 10/31/20 Urine Culture, Received Pending 10/31/20 Gram Stain - Final, Resulted 10/31/20 CSF Culture, Resulted Pending 10/31/20 - Final, Complete 10/31/20 Blood Culture, Received Pending 10/31/20 Blood Culture, Received Pending BRITTANI MENDEZ MD Nov 01, 2020 08:05
[2020-11-01] MEDS: FINASTERIDE 5 MG TAB PO SCH ×2 (09:00→09:16)
[2020-11-01] MEDS: NEOSPORIN TOP OINT 15GM TOP SCH ×2 (09:16→21:00)
[2020-11-01] MEDS: PANTOPRAZOLE 40MG VIAL (C9113 PER 1) IV SCH (09:16)
[2020-11-01] MEDS: NITROGLYCERIN 2% OINT 1 GM *U/D* PKT TOP SCH ×3 (09:16→18:48)
[2020-11-01 12:00] VITALS: BP 144/67
[2020-11-01] MEDS ORDERED: D5W/0.45% SODIUM CHLORIDE 1,000 ML IV SCH (12:00)
[2020-11-01] MEDS: D5W/0.45% SODIUM CHLORIDE 1,000 ML IV SCH (18:49)
[2020-11-02] VITALS: BP 169/71
[2020-11-02] MEDS: NITROGLYCERIN 2% OINT 1 GM *U/D* PKT TOP SCH ×4 (00:43→18:00)
[2020-11-02 04:00] VITALS: BP 140/76
[2020-11-02] MEDS: D5W/0.45% SODIUM CHLORIDE 1,000 ML IV SCH (04:07)
[2020-11-02] MEDS: PIPERACILLIN/TAZOBACTAM SOD 3.375 GM in D5W MINI-BAG PLUS 50 ML IV SCH ×4 (04:07→20:53)
[2020-11-02 05:21] LABS: BASO % 0.1 % (0.0-1.0); EOS # 0.2 10^3/uL (0.0-0.5); EOS % 1.9 % (0.0-3.0); HEMATOCRIT 31.1 % (42.0-52.0); LYMPH # 0.7 10^3/uL (1.5-5.0); LYMPH % 6.8 % (24.0-44.0); MEAN CORPUSCULAR HGB CONC 32.2 g/dl (32.0-36.5); MEAN CORPUSCULAR VOLUME 96.3 fl (80.0-96.0); MONO # 1.1 10^3/uL (0.0-0.8); MONO % 10.8 % (2.0-8.0); NEUTROPHILS # 7.8 10^3/uL (1.5-8.5); PLATELET COUNT, AUTOMATED 166 10^3/uL (150-450); RED BLOOD COUNT 3.23 10^6/uL (4.30-6.10); WHITE BLOOD COUNT 9.7 10^3/uL (4.0-10.0)
[2020-11-02 05:33] LABS: INR 1.2; PROTHROMBIN TIME 15.5 SECONDS (12.5-14.3)
[2020-11-02 05:36] LABS: D-DIMER QUANT 1755.02 ng/ml (<500)
[2020-11-02 05:42] LABS: CALCIUM LEVEL 8.4 MG/DL (8.8-10.2); CREATININE FOR GFR 1.46 MG/DL (0.70-1.30); GLOMERULAR FILTRATION RATE 50.8 (>42); POTASSIUM SERUM 3.2 MEQ/L (3.5-5.1)
[2020-11-02 05:50] LABS: ALBUMIN 2.7 GM/DL (3.2-5.2); ALT/SGPT 85 U/L (12-78); AMYLASE 157 U/L (25-115); BILIRUBIN,TOTAL 0.5 MG/DL (0.2-1.0); BLOOD UREA NITROGEN 47 MG/DL (7-18); C REACTIVE PROTEIN QUANTITATIV 7.36 MG/DL (0.00-0.30); CALCIUM LEVEL 8.6 MG/DL (8.8-10.2); CARBON DIOXIDE LEVEL 37 MEQ/L (21-32); CHLORIDE LEVEL 105 MEQ/L (98-107); CHOLESTEROL LEVEL 175 MG/DL (<200); CHOLESTEROL RISK RATIO 2.134 (<5); CREATININE FOR GFR 1.38 MG/DL (0.70-1.30); FERRITIN 1661 NG/ML (26-388); GLOMERULAR FILTRATION RATE 54.2 (>42); GLUCOSE, FASTING 105 MG/DL (70-100); HDL CHOLESTEROL 82 MG/DL (>40); LDH LACTATE DEHYDROGENASE 455 U/L (87-241); LDL CHOLESTEROL 68 MG/DL (<100); LIPASE 1130 U/L (73-393); NON-HDL-C 93 MG/DL; POTASSIUM SERUM 3.1 MEQ/L (3.5-5.1); SODIUM LEVEL 144 MEQ/L (136-145); TOTAL PROTEIN 6.4 GM/DL (6.4-8.2); TRIGLYCERIDES LEVEL 126 MG/DL (<150); VANCOMYCIN RANDOM 26.3 UG/ML
[2020-11-02] MEDS: POLYVINYL ALCOHOL OPHTH SOLN 15 ML(LIQUITEARS) OU PRN (06:24)
[2020-11-02] MEDS: CIPROFLOXACIN 200 MG in IV 1 EA IV SCH ×2 (06:46→18:47)
[2020-11-02] MEDS: KCL 40MEQ IN D5/0.45NS 1000ML 1,000 ML IV SCH ×2 (06:46→14:47)
[2020-11-02 07:22] VITALS: BP 141/65
[2020-11-02] MEDS: HumaLOG INSULIN (NovoLOG) PER UNIT SC SCH ×4 (07:30→20:38)
[2020-11-02] MEDS: PRIMIDONE 25MG PER 1/2 TABLET PO SCH ×2 (09:00→20:38)
[2020-11-02] MEDS: NEOSPORIN TOP OINT 15GM TOP SCH ×2 (09:00→20:53)
[2020-11-02 09:48] LABS: ERYTHROCYTE SEDIMENTATION RATE 125 mm/hr (0-20)
[2020-11-02 09:56] LABS: ABG BASE EXCESS 8.1 (-2.0-2.0); ABG HCO3 33.9 MEQ/L (22.0-26.0); ABG PARTIAL PRESSURE CO2 54.6 mmHg (35.0-45.0); ABG PARTIAL PRESSURE O2 79.1 mmHg (75.0-100.0); ABG STANDARD HCO3 31.8 MEQ/L (22.0-26.0); ABG TOTAL CO2 35.6 MEQ/L (23.0-31.0); ABG pH (ARTERIAL) 7.411 UNITS (7.350-7.450)
[2020-11-02] MEDS: PANTOPRAZOLE 40MG VIAL (C9113 PER 1) IV SCH (10:28)
[2020-11-02] MEDS: FINASTERIDE 5 MG TAB PO SCH (10:29)
[2020-11-02 12:00] VITALS: BP 111/54
--- NOTE | 2020-11-02 13:27 | IPN ---
PROGRESS NOTE DATE: 11/02/2020 SUBJECTIVE: The patient was very belligerent, refused medications yesterday and also refused blood draw. IV Vancomycin has been discontinued. Urine culture grew out enterococcus, currently on IV Cipro. This morning the patient is still not following commands. He arouses but closes his eyes quickly. He does not have any purposeful movements, snoring at the bedside, unable to be awakened. OBJECTIVE: PHYSICAL EXAMINATION: VITAL SIGNS: Temperature is 97.8, pulse 60, respiratory rate 18, blood pressure 141/65, oxygen saturation 95% on 3 liters nasal cannula. GENERAL APPEARANCE: The patient is obtunded, arousable, but does not follow commands, snoring at the bedside. HEENT: Mouth is open. Dry, chapped lips, dry mucous membranes. NECK: No jugular venous distention, thyromegaly. No cervical lymphadenopathy. LUNGS: Diminished with no wheezing or rales. HEART: S1, S2, sinus rhythm. ABDOMEN: Obese, soft, nontender, nondistended. EXTREMITIES: Chronic 2+ pitting edema with chronic venous stasis changes. LABORATORY STUDIES: White count 9.7, hemoglobin 10, hematocrit 31, platelet count 166. Sodium 146, potassium 3.2, chloride 105, bicarbonate 39, BUN 46, creatinine 1.46, glucose of 107. Ammonia level on 10/31 was 30. Urine culture enterococcus sensitive to Ciprofloxacin, Levaquin and Vancomycin. ASSESSMENT AND PLAN: This is a 70-year-old male with history of syringomyelia with chronic right sided deficit, admitted due to worsening right sided weakness with repeat MRI of the brain, cervicothoracic lumbar spine without acute changes. The patient had episodes of diarrhea at home with no GI panel available here in the hospital. He developed worsening confusion and repeat CT of the head and MRI of the brain were all negative. He was found to have a fever of 102, chest pain lumbar puncture with negative cells and organisms on the CSF fluid. Repeat urine showed enterococcus faecalis. CT chest, abdomen and pelvis showed possible right sided infiltrate, possible aspiration in the right middle and lower lobes. He was given IV Vancomycin and Zosyn with improvement in his temperature to 100.1 at 4:00 a.m. on 11/01 and no fever for the past 24 hours. Current issues are as follows: 1. Right middle, right lower lobe possible aspiration versus temperature associated pneumonia. 2. Enterococcus urinary tract infection - currently on IV Zosyn and IV Ciprofloxacin for enterococcus. Vancomycin has been discontinued due to MRSA being negative. 3. The patient remains confused but has been afebrile for 24 hours with normal white count. Infectious Disease Specialist has been consulted. 4. Acute metabolic encephalopathy secondary to infection - The patient remains confused. Repeat MRI and CT of the brain are unchanged. The patient is being treated for infection. Dr. Ramirez, Neurologist, has been consulted. 5. Essentially tremors Primidone has been discontinued due to risk of aspiration. 6. Possible aspiration risk - currently on puree diet and liquid with assistance. 7. Hypertension - was not taking oral medications. Given nitroglycerin topically q. 6 hourly for blood pressure control. 8. Acute hypoxic respiratory failure secondary to right middle, right lower lobe pneumonia. Currently on supplemental oxygen. MTDD
--- NOTE | 2020-11-02 14:23 | IPNPDOC ---
Date Seen The patient was seen on 11/02/20. Progress Note addendum to progress note: new onset aflutter -due to aspiration risk and npo status, unable to give eliquis po for cva prophylaxis -rate controlled -lovenox 1mg/kg sq q12hrs to be renally dosed by pharmacy if needed for cva prophylaxis until resumes po diet and lower risk of aspiration. -since he had recent hematuria, can hold lovenox if recurrent hematuria occur. VS, I&O, 24H, Fishbone Vital Signs/I&O Vital Signs Date Time Temp Pulse Resp B/P (MAP) Pulse Ox O2 Delivery O2 Flow Rate FiO2 11/02/20 12:00 97.3 66 18 111/54 (73) 97 Nasal Cannula 3.0 10/31/20 22:00 28 I&O- Last 24 Hours up to 6 AM 11/02/20 06:00 Intake Total 1120 ml Output Total 1900 ml Balance -780 ml Laboratory Data 24H LABS Laboratory Tests 2 11/01/20 17:01: Bedside Glucose (Misc Panel) 88 11/02/20 04:48: Immature Granulocyte % (Auto) 0.4, Neutrophils (%) (Auto) 80.0H, Lymphocytes (%) (Auto) 6.8L, Monocytes (%) (Auto) 10.8H, Eosinophils (%) (Auto) 1.9, Basophils (%) (Auto) 0.1, Neutrophils # (Auto) 7.8, Lymphocytes # (Auto) 0.7L, Monocytes # (Auto) 1.1H, Eosinophils # (Auto) 0.2, Basophils # (Auto) 0.0, Nucleated Red Blood Cells % (auto) 0.0, Erythrocyte Sedimentation Rate 125H, Prothrombin Time 15.5H, Prothromb Time International Ratio 1.20, Activated Partial Thromboplast Time 35.0, Fibrinogen 740H, D-Dimer, Quantitative 1755.02H, Anion Gap 2L, Glomerular Filtration Rate 50.8, Calcium Level 8.4L, Ferritin 1661H, Total Bili fuentes 0.5, Gamma Glutamyl Transferase 63, Aspartate Amino Transf (AST/SGOT) 173H, Alanine Aminotransferase (ALT/SGPT) 85H, Alkaline Phosphatase 115, Lactate Dehydrogenase 455H, C-Reactive Protein, Quantitative 7.36H, Total Protein 6.4, Albumin 2.7L, Albumin/Globulin Ratio 0.7, Triglycerides Level 126, Total Cholesterol 175, LDL Cholesterol 68, Non-HDL Cholesterol (LDL + VLDL) 93, Total HDL Cholesterol 82, Cholesterol/HDL Ratio 2.134, Amylase Level 157H, Lipase 1130H, Random Vancomycin Level 26.3 11/02/20 09:47: Ammonia 31 11/02/20 09:50: Blood Gas Bicarbonate Standard 31.8H, Arterial Blood pH 7.411, Arterial Blood Partial Pressure CO2 54.6H, Arterial Blood Partial Pressure O2 79.1, Arterial Blood Total CO2 35.6H, Arterial Blood HCO3 33.9H, Arterial Blood Base Excess 8.1H, Arterial Blood Oxygen Saturation 96.0 11/02/20 12:28: Bedside Glucose (Misc Panel) 134H CBC/BMP Laboratory Tests 11/02/20 04:48 Microbiology Microbiology 10/31/20 Respiratory Virus Panel (PCR) (LINDA) - Final, Complete 10/31/20 Fungal Smear, Received Pending 10/31/20 Fungal Culture, Received Pending 10/31/20 Viral Culture, Received Pending 10/31/20 Urine Culture - Final, Complete Enterococcus Faecalis 10/31/20 Gram Stain - Final, Complete 10/31/20 CSF Culture - Final, Complete 10/31/20 - Final, Complete 10/31/20 Blood Culture - Preliminary, Resulted No growth after 24 hours . All specim... 10/31/20 Blood Culture - Preliminary, Resulted No growth after 24 hours . All specim... BRITTANI MENDEZ MD November 02, 2020 14:23
[2020-11-02] MEDS ORDERED: methylPREDNISolone 125MG 2ML VIAL IV SCH (15:00)
--- NOTE | 2020-11-02 15:02 | ECGEPIP ---
[facility] Test Date: 2020-11-02 Pat Name: ELLY CARSON Department: Room: [place] [address] Gender: Male [employer] Coach: zenia : 1950 Requested By: BRITTANI Colón Order Number: [id number] Reading MD: Paula Pham Measurements Intervals [place] Rate: 64 P: 43 [place]: 190 QRS: 51 QRSD: 104 T: 53 QT: 434 QTc: 447 Interpretive Statements Sinus rhythm with premature atrial complexes 1ST DEGREE BLOCK NEW STTW ABN PACS NEW C/W 10/26/20 Electronically Signed on 11-02-2020 15:02:39 EDT by Paula Pham
--- NOTE | 2020-11-02 15:15 | IPN ---
INFECTIOUS DISEASE PROGRESS NOTE DATE: 11/01/2020 SUBJECTIVE: Mr. Vilchis was very confused this morning. He was delirious. He was asking me to drop the phone and stop talking on the phone and stop bothering him. He asked me to leave the room, as he had already seen me when I first showed up. He was mumbling words that did not make any sense. He was trying to grab something with his left arm, but he did not know what he was trying to get. He is very rigid. His eyes are erythematous and red. He is staring most of the time to the ceiling. He has some myoclonic jerks. Maximum temperature (T-max) yesterday was 101.2. Today it has improved. He is currently day #2 of intravenous (IV) vancomycin and Zosyn. He refused having blood draws done today. MEDICATIONS: - Zosyn 3.375 grams IV every 6 hours. - Zoloft 50 mg by mouth daily; this is not a new medication for him. He has been on selective serotonin reuptake inhibitors (SSRIs) - primidone 25 mg by mouth twice a day LABORATORY STUDIES: From yesterday: C-reactive protein (CRP) was 8.26. Ammonia 30. Sodium 138, potassium 4.1, chloride 97, bicarbonate 36, BUN 53, creatinine 1.56. White count 10.8. Erythrocyte sedimentation rate (ESR) 107. Blood cultures are no growth after 24 hours. Cerebral spinal fluid (CSF) BioFire PCR was negative for viral pathogens. Respiratory panel was negative. CT chest, abdomen and pelvis showed possibility of pneumonia with right middle lobe consolidation and right lower lobe dense infiltrate. CT abdomen showed edema of the gallbladder wall and possible intraluminal sludge. Cannot rule out cholecystitis. PHYSICAL EXAMINATION: VITAL SIGNS: Temperature 98.6, pulse 85, respirations 18, blood pressure 144/67, oxygen saturation 94% on 4 liters nasal cannula. HEART: Normal S1, S2. No murmurs appreciated. LUNGS: Diminished breath sounds at the bases, but clear. ABDOMEN: Distended. Soft, nontender. GENITOURINARY (): Catheter in place. EXTREMITIES: With 1+ pitting edema, right-sided weakness with severe rigidity. Left extremity he is able to move and try to grab things that are not there. Right upper and lower extremity strength normal. HEENT: Neck is very rigid. Eyes are erythematous. Conjunctiva with some edema of the conjunctiva as well. NEUROLOGIC: Alert and oriented times zero. IMPRESSION: 1. Metabolic encephalopathy with worsening delirium. Selective serotonin reuptake inhibitor (SSRI) has been discontinued as he has significant rigidity and there was some concern of serotonin syndrome. 2. Fever with new CT findings suggestive of possible aspiration pneumonia. Patient is on IV Zosyn and vancomycin. Methicillin-resistant Staphylococcus aureus (MRSA) screen was negative. Will discontinue vancomycin. 3. 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 The patient has had multiple rehabilitations and has had multiple admissions. He has been referred to neurosurgery in [place]. PLAN: Discontinue IV vancomycin. His MRSA screen is negative and therefore, his chances of having MRSA pneumonia are very low, especially with the fact that he is not allowing blood draws that would put him at high risk for vancomycin toxicity. Continue IV Zosyn 3.375 grams every 6 hours. His procalcitonin level was normal yesterday. A repeat level had been ordered for today, but hopefully, we will get results in the morning. Family did not wish to have his labs drawn if the patient was refusing. Dr. Mathews has been consulted regarding his mental status changes and significant rigidity. [facility]
[2020-11-02 16:00] VITALS: BP 103/52
[2020-11-02] MEDS: ENOXAPARIN 100MG/1ML SYRINGE (J1650 PER 10MG) SC SCH (16:16)
[2020-11-02] MEDS: methylPREDNISolone 250 MG in D5W 100 ML IV SCH (16:16)
--- NOTE | 2020-11-02 17:02 | CR ---
CONSULTATION DATE: 11/02/2020 REFERRING PHYSICIAN: Eliza Sierra MD REASON FOR CONSULTATION: Altered mental status, rigidity of arms and legs bilaterally. HISTORY OF PRESENT ILLNESS: The patient is a 71-year-old man with history of severe syringomyelia who presented to [facility] with worsening right-sided weakness. He was discharged from rehab center within the last couple of months. He was admitted at [facility] at that time. The patient is ambulatory at home but has slow walking. His gait worsened. He was unable to get out of bed due to weakness and worsening symptoms. He felt right arm and leg were weaker. The patient currently is drowsy, unresponsive and does not wake up to commands. Most of the information was obtained from discussion with providers and electronic medical record. The patient had extensive tests. In September and October,, he had MRI scan of brain, cervical, thoracic and lumbar spine which showed severe and large syringomyelia in cervical and thoracic spinal cord. He had stable postoperative changes. CT scan of chest showed possible right middle and lower lobe pneumonia or atelectasis. Urinalysis was negative three times in the last three days. His ESR was 125, 107 with CRP 8.26, AST of 173 and ALT 85 with total cholesterol 175, LDL 68, ferritin 1661, prolactin level 7.2. Hemoglobin was 10. WBC was 9.7. Spinal tap showed less than 2 WBCs with normal glucose and total protein. Fibrinogen was 740 with D-dimer 1755, PD 15.5. PAST MEDICAL HISTORY: 1. Syringomyelia with right-sided deficits, status post surgical decompression. 2. Gait instability. 3. Type 2 diabetes. 4. Obstructive sleep apnea on CPAP. 5. Hypertension. 6. Dyslipidemia. 7. Depression. 8. Prostate enlargement. 9. Acid reflux. 10. Anxiety. 11. Gout. 12. History of shunt placement in 1982 for syringomyelia. SOCIAL HISTORY: He quit smoking many years ago. He drinks a few beers socially. FAMILY HISTORY: Father had coronary artery disease. Mother had congestive heart failure. HOME MEDICATIONS: 1. Allopurinol 100 mg p.o. daily. 2. Aspirin 81 mg p.o. daily. 3. Ferrous sulfate 325 mg p.o. b.i.d. 4. Lasix 40 mg p.o. daily. 5. Insulin Levemir 26 units subcutaneous daily. 6. Multivitamin. 7. Omeprazole 40 mg p.o. daily. 8. Primidone 25 mg p.o. b.i.d. 9. Crestor 20 mg p.o. daily. 10. Senna one tablet p.o. daily. 11. Sertraline 50 mg p.o. daily. 12. Flomax 0.4 mg p.o. daily. 13. Telmisartan 10 mg p.o. daily. 14. Hydroxyzine 10 mg p.o. q.i.d. p.r.n. 15. Nitroglycerin 0.4 mg as needed. ALLERGIES: LISINOPRIL, METFORMIN, FINASTERIDE. REVIEW OF SYSTEMS: Could not be obtained. PHYSICAL EXAMINATION: VITAL SIGNS: Temperature 97.8 with T max of 101.2 on October 31, 2010. Pulse 60,, respiratory rate 18, blood pressure 141/65, 95% saturation on room air. HEART: Regular rate and rhythm. LUNGS: Clear to auscultation. ABDOMEN: Soft, nontender. EXTREMITIES: No pedal edema. MUSCULOSKELETAL: No abnormalities. SKIN: No rash. NEUROLOGICAL: No signs of meningeal irritation. The patient is drowsy and unresponsive. He does not wake up to verbal commands. He withdraws to pain, all four extremities. He appears to have spasticity of all four extremities. Plantars are mute. He has chronic venous stasis changes in his legs. Deep tendon reflexes are mute. Gait could not be tested. ASSESSMENT: 1. Possible polymyalgia rheumatica superimposed on severe and large syringomyelia affecting cervical and thoracic spinal cord for which the patient had decompression many years ago. 2. Multifactorial gait difficulty. 3. Underlying diabetic peripheral neuropathy. PLAN: 1. Trial of Solu-Medrol 250 mg IV daily for five days followed by slow prednisone taper. This can also help with steroid responsive encephalopathy. 2. Physical and occupational therapy. 3. Consider referral to neurosurgery for an opinion about syringomyelia. 4. Follow with our office in two weeks after hospital discharge. [facility]
[2020-11-02] MEDS ORDERED: VANCOMYCIN HCL 1,000 MG, VIAL MATE ADAPTER 1 EACH in NS 250 ML IV SCH (19:00)
[2020-11-02 20:00] VITALS: BP 136/65
[2020-11-03] VITALS: BP 160/85
[2020-11-03] MEDS: KCL 40MEQ IN D5/0.45NS 1000ML 1,000 ML IV SCH ×4 (01:24→16:57)
[2020-11-03] MEDS: NITROGLYCERIN 2% OINT 1 GM *U/D* PKT TOP SCH ×4 (01:25→17:38)
[2020-11-03 04:00] VITALS: BP 142/80
[2020-11-03] MEDS: PIPERACILLIN/TAZOBACTAM SOD 3.375 GM in D5W MINI-BAG PLUS 50 ML IV SCH ×4 (04:03→21:12)
[2020-11-03] MEDS: ENOXAPARIN 100MG/1ML SYRINGE (J1650 PER 10MG) SC SCH ×2 (05:00→17:00)
[2020-11-03 05:50] LABS: EOS % 0.1 % (0.0-3.0); HEMATOCRIT 30.6 % (42.0-52.0); HEMOGLOBIN 9.8 g/dl (13.5-17.5); LYMPH # 0.4 10^3/uL (1.5-5.0); LYMPH % 4.3 % (24.0-44.0); MEAN CORPUSCULAR HEMOGLOBIN 31.4 pg (27.0-33.0); MEAN CORPUSCULAR VOLUME 98.1 fl (80.0-96.0); MONO # 0.3 10^3/uL (0.0-0.8); MONO % 3.8 % (2.0-8.0); NEUTROPHILS # 7.6 10^3/uL (1.5-8.5); NEUTROPHILS % 91.3 % (36.0-66.0); PLATELET COUNT, AUTOMATED 165 10^3/uL (150-450); RED BLOOD COUNT 3.12 10^6/uL (4.30-6.10); WHITE BLOOD COUNT 8.3 10^3/uL (4.0-10.0)
[2020-11-03 06:11] LABS: ERYTHROCYTE SEDIMENTATION RATE 105 mm/hr (0-20)
[2020-11-03 06:20] LABS: ALBUMIN 2.4 GM/DL (3.2-5.2); BILIRUBIN,TOTAL 0.3 MG/DL (0.2-1.0); C REACTIVE PROTEIN QUANTITATIV 4.16 MG/DL (0.00-0.30); CALCIUM LEVEL 8.7 MG/DL (8.8-10.2); CREATININE FOR GFR 1.62 MG/DL (0.70-1.30); GLOMERULAR FILTRATION RATE 45.1 (>42)
[2020-11-03] MEDS: CIPROFLOXACIN 200 MG in IV 1 EA IV SCH ×2 (06:32→17:45)
[2020-11-03 07:28] VITALS: BP 171/73
--- NOTE | 2020-11-03 08:37 | IPN ---
PROGRESS NOTE DATE: 11/03/2020 SUBJECTIVE: The patient is much more awake and alert. He is speaking this morning and appropriate with his questions. He has had no fever. No chills. No nausea or vomiting. No abdominal pain. He was kept n.p.o. yesterday due to risk of aspiration due to altered mental status, which is significantly improved today. He currently denies any chest pain, pressure, tightness, shortness of breath, history of urgency, frequency, or hematuria. Telemetry overnight showed recurrent paroxysmal atrial flutter on Lovenox subcutaneously for CVA prophylaxis. He has been rate controlled and did not require any medications. This morning, he has had no other complaints. Denies any dysuria, flank pain, headaches, or chills. OBJECTIVE: VITAL SIGNS: Temperature 97.3, pulse 60, respiratory rate 18, blood pressure 171/73, 98% on 2 liters nasal cannula. GENERAL: The patient is awake, alert, and oriented to person and place. He does not know the date. He is answering questions appropriately. His speech is fluent. HEENT: Dry mucous membranes with chapped lips, missing teeth, and poor dentition. No JVD, thyromegaly, or cervical lymphadenopathy. Face is symmetric. Tongue is midline. Uvula is midline. He is following commands. Extraocular muscles are intact. Normocephalic, atraumatic. He is responding to commands. LUNGS: Clear to auscultation. No wheezing, rales, or rhonchi. HEART: S1, S2. Sinus rhythm currently with episodes of atrial flutter. ABDOMEN: Soft, nontender, nondistended, and obese. EXTREMITIES: No cyanosis, clubbing, or any pitting edema. NEUROLOGIC: The patient is awake, alert, and oriented x2 to person and place. He is oriented to time. Unable to tell the date. He is answering questions appropriately. His speech is fluent, but slow and appropriate. The patient is following commands. Extraocular muscles are intact. Normocephalic, atraumatic. Tongue is midline. Uvula is midline. No pronator drift. The patient has spasticity of four extremities. Gait not tested. IMAGING DATA: Studies have all been reviewed. LABORATORY DATA: Notable for a creatinine of 1.6 with previous creatinine of 1.46. ASSESSMENT: This is a 70-year-old male with history of syringomyelia admitted due to generalized weakness found to have symptomatic anemia with chronic right-sided weakness, right-sided deficit, and stiffness. He was evaluated with MRI of the brain, cervical, thoracic, and lumbar spine without any acute changes. He had diarrhea at home, but no GI panel in the hospital was obtained; as the patient had no recurrent episodes. The patient underwent EGD and colonoscopy for symptomatic anemia and received two units of red blood cells (RBC) transfusion that showed hiatal hernia, polyps, and hemorrhoids. He then developed worsening mentation and fever of [address] and MRI being negative. Lumbar puncture had no meningeal signs of infection. The patient was empirically treated with IV vancomycin and Zosyn with CT chest, abdomen, and pelvis showing right middle and lower lobe possible aspiration pneumonia versus health care-associated, as well as Enterococcus faecalis on the UTI. He did have episodes of urine retention requiring a Lamas catheter placement with traumatic injury causing gross hematuria, which has resolved with irrigation and Lamas had been discontinued. IMPRESSION AND PLAN: Current acute issues. 1. Polymyalgia rheumatica in the setting of chronic syringomyelia with right-sided deficit currently on IV Solu-Medrol for five days 250 mg IV for the next five days, currently at day #2, followed by neurologist. The patient received full workup with repeat MRI of the brain and lumbar puncture, all of which had been unchanged and negative for any meningeal infection. 2. Right middle and right lower lobe aspiration versus health care-associated pneumonia status post vancomycin, which had been discontinued due to being methicillin-resistant Staphylococcus aureus (MRSA) negative. The patient had been n.p.o. due to risk of aspiration from mental status changes. He did receive IV vancomycin currently still on IV Zosyn. Infectious disease specialist has been consulted. There is no sputum culture available, as the patient was not expectorating any sputum. Blood cultures remain negative. 3. Enterococcus urinary tract infection in the setting of recent gross hematuria with Lamas catheter due to urine retention. Currently changed to IV ciprofloxacin to cover Enterococcus. Vancomycin has been discontinued due to MRSA being negative. 4. Acute encephalopathy secondary to infection and polymyalgia rheumatica (PMR). The patient is being treated with IV Zosyn for right middle and right lower lobe pneumonia and possible aspiration as contributing factor, as well as Enterococcus UTI with IV ciprofloxacin. His mentation is back to baseline after being started on IV Solu-Medrol for a polymyalgia rheumatica. Neurologist, Dr. Ramirez, is currently following the patient. He will need five days of IV Solu-Medrol and outpatient prednisone for several months, to be tapered very slowly. 5. Essential tremors on Primidone. 6. New onset atrial flutter currently rate controlled. Due to altered mental status and n.p.o. status, the patient was given subcutaneous Lovenox. Since the patient is back to baseline mentation, we will keep the Lovenox on for the next 24 hours. If there are no signs of gross hematuria, we will then start with Eliquis renally dosed in the morning. 7. Acute kidney injury secondary to over-diuresis and decreased oral intake due to aspiration and altered mental status. Currently still on D5 half-normal. Vancomycin has been discontinued. We will continue with IV fluids until the patient is back to his baseline oral intake. Avoid nephrotoxins and renally dose medications. We have to monitor the patient's urine output. 8. Aspiration risk due to altered mental status. MRI of the brain was negative for acute cerebrovascular accident (CVA). In light of recent new onset atrial flutter, we will repeat the speech therapy evaluation tomorrow to rule out worsening aspiration. Speech therapy services five times a week is recommended. Will start Wednesday. 9. Hypertension uncontrolled. The patient is unable to take oral medications due to recent aspiration. He has been on nitroglycerin, but we will change to q. 4 hourly. Once his oral intake is back to baseline, we can start on oral medications for better blood pressure control. 10. Acute blood loss anemia status post history of recent GI bleed. Did receive two units of RBC transfusion. 11. History of hiatal hernia, nonbleeding internal hemorrhoids, diverticulitis, multiple polyps in the ascending colon status post cold snare and biopsy. The patient is supposed to have a high fiber diet, but due to aspiration has been changed to n.p.o. status temporarily. Since he is much better today, he will be started on a puree diet with thin liquids, but may be changed to swallow at therapist recommendations after reevaluation on Wednesday. DISPOSITION: The patient still needs telemetry regarding atrial flutter. He is currently not receiving any rate control medications, but he is medically stable for medical surgical floor with telemetry. The patient will need three more days of IV Solu-Medrol. Then, he will need rehabilitation and most likely appropriate for acute rehab unit.
[2020-11-03] MEDS: HumaLOG INSULIN (NovoLOG) PER UNIT SC SCH ×4 (09:32→20:16)
[2020-11-03] MEDS: FINASTERIDE 5 MG TAB PO SCH (09:32)
[2020-11-03] MEDS: PANTOPRAZOLE 40MG VIAL (C9113 PER 1) IV SCH (09:32)
[2020-11-03] MEDS: NEOSPORIN TOP OINT 15GM TOP SCH ×2 (09:33→21:12)
[2020-11-03] MEDS: PRIMIDONE 25MG PER 1/2 TABLET PO SCH ×2 (09:33→21:12)
[2020-11-03 12:00] VITALS: BP 146/65
[2020-11-03 16:00] VITALS: BP 131/60
[2020-11-03] MEDS: methylPREDNISolone 250 MG in D5W 100 ML IV SCH (16:57)
[2020-11-03 20:00] VITALS: BP 150/67
[2020-11-04] VITALS: BP 139/63
[2020-11-04] MEDS: PIPERACILLIN/TAZOBACTAM SOD 3.375 GM in D5W MINI-BAG PLUS 50 ML IV SCH ×3 (02:41→14:57)
[2020-11-04] MEDS: KCL 40MEQ IN D5/0.45NS 1000ML 1,000 ML IV SCH ×3 (02:42→21:11)
[2020-11-04 04:00] VITALS: BP 160/72
[2020-11-04] MEDS: CIPROFLOXACIN 200 MG in IV 1 EA IV SCH (05:13)
[2020-11-04] MEDS: ENOXAPARIN 100MG/1ML SYRINGE (J1650 PER 10MG) SC SCH (05:13)
[2020-11-04] MEDS: NITROGLYCERIN 2% OINT 1 GM *U/D* PKT TOP SCH ×2 (05:14)
[2020-11-04 06:00] LABS: BASO % 0.1 % (0.0-1.0); HEMATOCRIT 30.8 % (42.0-52.0); LYMPH # 0.4 10^3/uL (1.5-5.0); LYMPH % 3.8 % (24.0-44.0); MEAN CORPUSCULAR HEMOGLOBIN 31.6 pg (27.0-33.0); MEAN CORPUSCULAR HGB CONC 32.5 g/dl (32.0-36.5); MEAN CORPUSCULAR VOLUME 97.5 fl (80.0-96.0); MONO # 0.3 10^3/uL (0.0-0.8); MONO % 2.9 % (2.0-8.0); NEUTROPHILS # 10.8 10^3/uL (1.5-8.5); NEUTROPHILS % 92.5 % (36.0-66.0); PLATELET COUNT, AUTOMATED 183 10^3/uL (150-450); RED BLOOD COUNT 3.16 10^6/uL (4.30-6.10); WHITE BLOOD COUNT 11.6 10^3/uL (4.0-10.0)
[2020-11-04 06:25] LABS: ALBUMIN 2.6 GM/DL (3.2-5.2); BILIRUBIN,TOTAL 0.4 MG/DL (0.2-1.0); CALCIUM LEVEL 8.7 MG/DL (8.8-10.2); CREATININE FOR GFR 1.47 MG/DL (0.70-1.30); GLOMERULAR FILTRATION RATE 50.4 (>42); POTASSIUM SERUM 4.6 MEQ/L (3.5-5.1); TOTAL PROTEIN 6.2 GM/DL (6.4-8.2)
[2020-11-04 08:12] VITALS: BP 178/77
[2020-11-04] MEDS: PANTOPRAZOLE 40MG VIAL (C9113 PER 1) IV SCH (08:15)
[2020-11-04] MEDS: FINASTERIDE 5 MG TAB PO SCH (08:15)
[2020-11-04] MEDS: HumaLOG INSULIN (NovoLOG) PER UNIT SC SCH ×4 (08:15→21:00)
[2020-11-04] MEDS: PRIMIDONE 25MG PER 1/2 TABLET PO SCH ×2 (08:15→21:08)
[2020-11-04] MEDS: NEOSPORIN TOP OINT 15GM TOP SCH ×2 (08:16→21:09)
[2020-11-04] MEDS ORDERED: ISOSORBIDE DIN (ISORDIL) 10 MG TAB PO SCH (09:00)
--- NOTE | 2020-11-04 10:49 | IPNPDOC ---
Date Seen The patient was seen on 11/04/20. Progress Note SUBJECTIVE: Patient had some hematuria while on Lovenox for atrial flutter yesterday. Lovenox has been discontinued. He denies any dysuria, urgency, frequency, fever, chills. Complains of generalized weakness. He is now speaking and appropriate with responses. . He denies any shortness of breath, chest pain, pressure, tightness, lightheadedness or dizziness. , No cough OBJECTIVE: PHYSICAL EXAM: VITAL SIGNS: SEE BELOW GENERAL: Awake, alert, oriented to person and place, answering questions appropriately. No use of respiratory accessory muscles HEENT: No conversational dyspnea Dry mucous membranes with chapped lips, missing teeth, and poor dentition. No JVD, thyromegaly, or cervical lymphadenopathy. Face is symmetric. Tongue is midline. Uvula is midline. He is following commands. Extraocular muscles are intact. Normocephalic, atraumatic. LUNGS: Clear to auscultation. No wheezing, rales, or rhonchi. HEART: S1, S2. Sinus rhythm currently with episodes of atrial flutter. ABDOMEN: Soft, nontender, nondistended, and obese. EXTREMITIES: No cyanosis, clubbing, or any pitting edema. NEUROLOGIC: The patient is awake, alert, and oriented x2 to person and place. He is oriented to time. Unable to tell the date. He is answering questions appropriately. His speech is fluent, but slow and appropriate. The patient is following commands. Extraocular muscles are intact. Normocephalic, atraumatic. Tongue is midline. Uvula is midline. No pronator drift. The patient has spasticity of four extremities. Gait not tested. IMAGING DATA: Studies have all been reviewed. LABORATORY DATA: Notable for a creatinine of 1.6 with previous creatinine of 1.46. ASSESSMENT: This is a 70-year-old male with history of syringomyelia admitted due to generalized weakness found to have symptomatic anemia with chronic right-sided weakness, right-sided deficit, and stiffness. He was evaluated with MRI of the brain, cervical, thoracic, and lumbar spine without any acute changes. He had diarrhea at home, but no GI panel in the hospital was obtained; as the patient had no recurrent episodes. The patient underwent EGD and colonoscopy for symptomatic anemia and received two units of red blood cells (RBC) transfusion that showed hiatal hernia, polyps, and hemorrhoids. He then developed worsening mentation and fever of [address] and MRI being negative. Lumbar puncture had no meningeal signs of infection. The patient was empirically treated with IV vancomycin and Zosyn with CT chest, abdomen, and pelvis showing right middle and lower lobe possible aspiration pneumonia versus health care-associated, as well as Enterococcus faecalis on the UTI. He did have episodes of urine retention requiring a Lamas catheter placement with traumatic injury causing gross hematuria, which has resolved with irrigation and Lamas had been discontinued. IMPRESSION AND PLAN: Current acute issues. 1. Polymyalgia rheumatica in the setting of chronic syringomyelia with right-sided deficit currently on IV Solu-Medrol for five days 250 mg IV for the next five days, currently at day #3, followed by neurologist. The patient received full workup with repeat MRI of the brain and lumbar puncture, all of which had been unchanged and negative for any meningeal infection. 2. Right middle and right lower lobe aspiration versus health care-associated pneumonia status post vancomycin, which had been discontinued due to being methicillin-resistant Staphylococcus aureus (MRSA) negative. Infectious disease specialist has been consulted. There is no sputum culture available, as the patient was not expectorating any sputum. Blood cultures remain negative. Patient will need speech therapy 5 times a week and to evaluate his aspiration to see if it's improving 3. Enterococcus urinary tract infection in the setting of recent gross hematuria with Lamas catheter due to urine retention. Currently changed to IV ciprofloxacin to cover Enterococcus. Vancomycin has been discontinued due to MRSA being negative. 4. Acute encephalopathy secondary to infection and polymyalgia rheumatica (PMR). Significant improvement on IV Solu-Medrol started by neurologist. Supportive care with IV antibiotics for UTI and pneumonia 5. Essential tremors on Primidone. 6. New onset atrial flutter , Rate controlled on no medications unable to anticoagulate due to gross hematuria 7. Acute kidney injury secondary to over-diuresis and decreased oral intake due to aspiration and altered mental status. Currently still on D5 half-normal. 8. Aspiration risk due to altered mental status. MRI of the brain was negative for acute cerebrovascular accident (CVA). In light of recent new onset atrial flutter, we will repeat the speech therapy evaluation tomorrow to rule out worsening aspiration. Speech therapy services five times a week is recommended. Will start Wednesday. 9. Hypertension uncontrolled. Discontinued nitroglycerin. Now that the patient is taking oral intake, Norvasc and isosorbide 10. Acute blood loss anemia Due to gross hematuria and status post history of recent GI bleed. Did receive two units of RBC transfusion. Lovenox for atrial flutter discontinued 11. History of hiatal hernia, nonbleeding internal hemorrhoids, diverticulitis, multiple polyps in the ascending colon status post cold snare and biopsy. on a puree diet with thin liquids, but may be changed to swallow at therapist recommendations after reevaluation 12. Gross hematuria. Lamas catheter to be flushed and CBI to see if it clears currently in antibiotics for UTI. DISPOSITION: The patient will need total of 5 days of IV Solu-Medrol. Then, he will need rehabilitation and most likely appropriate for acute rehab unit. VS, I&O, 24H, Fishbone Vital Signs/I&O Vital Signs Date Time Temp Pulse Resp B/P (MAP) Pulse Ox O2 Delivery O2 Flow Rate FiO2 11/04/20 09:48 178/77 11/04/20 08:15 62 11/04/20 08:12 97.4 18 98 Nasal Cannula 2.0 10/31/20 22:00 28 I&O- Last 24 Hours up to 6 AM 11/04/20 06:00 Intake Total 2316.5 ml Output Total 1100 ml Balance 1216.5 ml Laboratory Data 24H LABS Laboratory Tests 2 11/03/20 12:13: Bedside Glucose (Misc Panel) 152H 11/03/20 17:35: Bedside Glucose (Misc Panel) 203H 11/03/20 20:15: Bedside Glucose (Misc Panel) 238H 11/04/20 05:28: Immature Granulocyte % (Auto) 0.7, Neutrophils (%) (Auto) 92.5H, Lymphocytes (%) (Auto) 3.8L, Monocytes (%) (Auto) 2.9, Eosinophils (%) (Auto) 0.0, Basophils (%) (Auto) 0.1, Neutrophils # (Auto) 10.8H, Lymphocytes # (Auto) 0.4L, Monocytes # (Auto) 0.3, Eosinophils # (Auto) 0.0, Basophils # (Auto) 0.0, Nucleated Red Blood Cells % (auto) 0.0, Anion Gap 6L, Glomerular Filtration Rate 50.4, Calcium Level 8.7L, Total Bilirubin 0.4, Aspartate Amino Transf (AST/SGOT) 53H, Alanine Aminotransferase (ALT/SGPT) 75, Alkaline Phosphatase 155H, Total Protein 6.2L, Albumin 2.6L, Albumin/Globulin Ratio 0.7 CBC/BMP Laboratory Tests 11/04/20 05:28 Microbiology Microbiology 10/31/20 Respiratory Virus Panel (PCR) (LINDA) - Final, Complete 10/31/20 Fungal Smear, Received Pending 10/31/20 Fungal Culture, Received Pending 10/31/20 Viral Culture, Received Pending 10/31/20 Urine Culture - Final, Complete Enterococcus Faecalis 10/31/20 Gram Stain - Final, Complete 10/31/20 CSF Culture - Final, Complete 10/31/20 - Final, Complete 10/31/20 Blood Culture - Preliminary, Resulted No Growth after 72 hours. All specime... 10/31/20 Blood Culture - Preliminary, Resulted No Growth after 72 hours. All specime... BRITTANI MENDEZ MD November 04, 2020 10:49
[2020-11-04 12:00] VITALS: BP 133/60
[2020-11-04] MEDS: ISOSORBIDE DIN. (ISORDIL) 20 MG TAB PO SCH ×2 (12:00→18:03)
[2020-11-04 16:00] VITALS: BP 150/72
[2020-11-04] MEDS: methylPREDNISolone 250 MG in D5W 100 ML IV SCH (16:59)
[2020-11-04 18:07] LABS: Lyme Disease IgG/IgM Antibodie <0.91 ISR (0.00-0.90); Lyme Disease IgM Ab Quantitati <0.80 index (0.00-0.79)
[2020-11-04 20:00] VITALS: BP 154/70
[2020-11-05] MEDS: ISOSORBIDE DIN. (ISORDIL) 20 MG TAB PO SCH ×4 (01:25→17:28)
[2020-11-05] MEDS: KCL 40MEQ IN D5/0.45NS 1000ML 1,000 ML IV SCH (01:25)
[2020-11-05 04:00] VITALS: BP 176/76
[2020-11-05 05:41] LABS: BASO % 0.1 % (0.0-1.0); HEMOGLOBIN 9.1 g/dl (13.5-17.5); LYMPH # 0.4 10^3/uL (1.5-5.0); LYMPH % 3.9 % (24.0-44.0); MEAN CORPUSCULAR HEMOGLOBIN 31.5 pg (27.0-33.0); MEAN CORPUSCULAR HGB CONC 31.4 g/dl (32.0-36.5); MEAN CORPUSCULAR VOLUME 100.3 fl (80.0-96.0); MONO # 0.3 10^3/uL (0.0-0.8); MONO % 3.1 % (2.0-8.0); NEUTROPHILS # 8.7 10^3/uL (1.5-8.5); NEUTROPHILS % 92.1 % (36.0-66.0); PLATELET COUNT, AUTOMATED 205 10^3/uL (150-450); RED BLOOD COUNT 2.89 10^6/uL (4.30-6.10); WHITE BLOOD COUNT 9.4 10^3/uL (4.0-10.0)
[2020-11-05 05:47] LABS: ALBUMIN 2.2 GM/DL (3.2-5.2); ALT/SGPT 71 U/L (12-78); BILIRUBIN,TOTAL 0.2 MG/DL (0.2-1.0); BLOOD UREA NITROGEN 48 MG/DL (7-18); C REACTIVE PROTEIN QUANTITATIV 0.86 MG/DL (0.00-0.30); CARBON DIOXIDE LEVEL 29 MEQ/L (21-32); CHLORIDE LEVEL 108 MEQ/L (98-107); CREATININE FOR GFR 1.24 MG/DL (0.70-1.30); GLOMERULAR FILTRATION RATE > 60.0 (>42); GLUCOSE, FASTING 324 MG/DL (70-100); POTASSIUM SERUM 5.2 MEQ/L (3.5-5.1); SODIUM LEVEL 138 MEQ/L (136-145); TOTAL PROTEIN 6.1 GM/DL (6.4-8.2)
[2020-11-05 08:00] VITALS: BP 152/69
[2020-11-05] MEDS: HumaLOG INSULIN (NovoLOG) PER UNIT SC SCH ×4 (08:34→20:07)
[2020-11-05] MEDS: PRIMIDONE 25MG PER 1/2 TABLET PO SCH ×2 (08:34→20:08)
[2020-11-05] MEDS: PANTOPRAZOLE 40MG VIAL (C9113 PER 1) IV SCH (08:34)
[2020-11-05] MEDS: NEOSPORIN TOP OINT 15GM TOP SCH ×2 (08:35→20:09)
[2020-11-05] MEDS: POLYVINYL ALCOHOL OPHTH SOLN 15 ML(LIQUITEARS) OU PRN (08:35)
[2020-11-05] MEDS: FINASTERIDE 5 MG TAB PO SCH (08:35)
[2020-11-05] MEDS ORDERED: D5W/0.45% SODIUM CHLORIDE 1,000 ML IV SCH (08:45)
[2020-11-05] MEDS ORDERED: LEVEMIR (INSULIN DETEMIR) 1 UNITS/0.01ML SC ONE (11:50)
[2020-11-05 12:00] VITALS: BP 161/73
[2020-11-05 17:07] LABS: IMMUNOGLOBULIN G CSF 2.9 mg/dL (0.0-8.6)
[2020-11-05] MEDS: methylPREDNISolone 250 MG in D5W 100 ML IV SCH (17:26)
--- NOTE | 2020-11-05 19:02 | IPNPDOC ---
Date Seen The patient was seen on 11/05/20. Progress Note SUBJECTIVE: Hematuria clearing up further today, remains off lovenox. BS elevated likely 2/2 to solumedrol, restarted home levemir. D/c KCL fluids due to hyperkalemia, transitioned to 0.45 NS. He denies any shortness of breath, chest pain, pressure, tightness, lightheadedness or dizziness. OBJECTIVE: PHYSICAL EXAM: VITAL SIGNS: SEE BELOW GENERAL: NAD, sitting up at bedside chair. AAOx3 HEENT: PERRLA, EOM intact, poor dentition, AT/NC LUNGS: CTAB. No wheezing, rales, or rhonchi. HEART: S1, S2. Sinus rhythm currently . No M/R/G ABDOMEN: Soft, nontender, nondistended, and obese. EXTREMITIES: No cyanosis, clubbing, or any pitting edema. NEUROLOGIC: Generalized weakness 4/5/ in lower ext, 5/5 strength in upper ext. No focal deficits, CN 2-12 intact. SEnsory and motor intact IMAGING DATA: Studies have all been reviewed. LABORATORY DATA: Please see below MICRO: Please see below ASSESSMENT: 70-year-old male with history of syringomyelia admitted for polymyalgia rheumatica, RML/RLL aspiration vs. HCAP , UTI, new onset atrial flutter. PLAN: Acute encephalopathy secondary to infection and polymyalgia rheumatica- resolved -Significant improvement on IV Solu-Medrol started by neurology -Supportive care with IV antibiotics for UTI and pneumonia Polymyalgia rheumatica in the setting of chronic syringomyelia -right-sided deficit improving with IV Solu-Medrol, to complete 5 total doses -PT: Pt remains nelow PLOF at this time and will cont to benefit from skilled PT prior to D/C. -Received full workup with repeat MRI of the brain and lumbar puncture, all of which had been unchanged and negative for any meningeal infection. -Neurology has been consulted. Right middle and right lower lobe aspiration vs HCAP -Afebrile, WBC wnl, all inflammatory markers improved -No sputum culture available, Bcx neg as the -ST: speech therapy 5 times a week and to evaluate his aspiration to see if it's improving -HOB elevated when laying down -No longer on abx, ID had been following Acute blood loss anemia 2/2 gross hematuria and status post history of recent GI bleed. -H/H has been stable with improving hematuria -Received total of two units of RBC transfusion10/27, 10/28 -Lovenox for atrial flutter discontinued -Continue to monitor closely and resume AC if able Hyperkalemia 2/2 to IVFs with KCL -D/khadar IVfs with potassium -F/u AM labs ANTONIO 2/2 to over-diuresis and decreased oral intake due to aspiration and altered mental status, UTI, hematuria, urinary retention -AAOx3, eating and drinking better -Cr improving and currently 1.24 -Decreased fluids futher today, will attempt to wean off as mental status has improved. -Daily labs. Urinary retention with clemens catheter in place. -Poss 2/2 to UTI vs. BPH -D/c clemens today to do voiding trial -Starting flomax. If retains and bladder scan > 400 mL patient will need clemens again and likely to leave in for 2 weeks before attempting voiding trial again. If fails also would benefit from f/u with urology as o/p. DM type II -BS elevated with solumedrol above -Started home levemir dose, ISS, consistent carb diet -FS AC/HS Enterococcus urinary tract infection in the setting of recent gross hematuria with clemens catheter due to urine retention. -Previously on Vancomycin and IV ciprofloxacin. -ID was consulted, stopped abx on 11/04/20 New onset atrial flutter, paroxysmal -Rate controlled -Unable to AC due to hematuria -Will need to discuss resuming or keeping off with patient likely 11/06/20 Essential tremors -Stable -C/w Primidone. Hypertension uncontrolled -C/w current treatment History of hiatal hernia / nonbleeding internal hemorrhoids / diverticulitis / multiple polyps in the ascending colon s/p biopsy. -C/w current diet -Denies abd pain DVT px -SCD, teds. AC CI due to hematuria. DISPOSITION: Per PT, will benefit from continued rehab. Will discuss ARU evaluation being placed on 11/06/20. Can get even IV solumedrol there as well. VS, I&O, 24H, Fishbone Vital Signs/I&O Vital Signs Date Time Temp Pulse Resp B/P (MAP) Pulse Ox O2 Delivery O2 Flow Rate FiO2 11/05/20 17:28 154/72 11/05/20 12:00 96.7 61 18 97 Room Air 11/05/20 04:00 2.0 10/31/20 22:00 28 I&O- Last 24 Hours up to 6 AM 11/05/20 06:00 Intake Total 2400 ml Output Total 2400 ml Balance 0 ml Laboratory Data 24H LABS Laboratory Tests 2 11/04/20 21:13: Bedside Glucose (Misc Panel) 234H 11/05/20 04:47: Immature Granulocyte % (Auto) 0.8, Neutrophils (%) (Auto) 92.1H, Lymphocytes (%) (Auto) 3.9L, Monocytes (%) (Auto) 3.1, Eosinophils (%) (Auto) 0.0, Basophils (%) (Auto) 0.1, Neutrophils # (Auto) 8.7H, Lymphocytes # (Auto) 0.4L, Monocytes # (Auto) 0.3, Eosinophils # (Auto) 0.0, Basophils # (Auto) 0.0, Nucleated Red Blood Cells % (auto) 0.0, Anion Gap 1L, Glomerular Filtration Rate > 60.0, Calcium Level 8.0L, Total Bilirubin 0.2, Aspartate Amino Transf (AST/SGOT) 42H, Alanine Aminotransferase (ALT/SGPT) 71, Alkaline Phosphatase 130H, C-Reactive Protein, Quantitative 0.86H, Total Protein 6.1L, Albumin 2.2L, Albumin/Globulin Ratio 0.6 11/05/20 06:51: Erythrocyte Sedimentation Rate 86H 11/05/20 11:47: Bedside Glucose (Misc Panel) 345H 11/05/20 17:14: Bedside Glucose (Misc Panel) 234H CBC/BMP Laboratory Tests 11/05/20 04:47 Microbiology Microbiology 10/31/20 Respiratory Virus Panel (PCR) (LINDA) - Final, Complete 10/31/20 Fungal Smear, Received Pending 10/31/20 Fungal Culture, Received Pending 10/31/20 Viral Culture, Received Pending 10/31/20 Urine Culture - Final, Complete Enterococcus Faecalis 10/31/20 Gram Stain - Final, Complete 10/31/20 CSF Culture - Final, Complete 10/31/20 - Final, Complete 10/31/20 Blood Culture - Final, Complete NO GROWTH AFTER 5 DAYS 10/31/20 Blood Culture - Final, Complete NO GROWTH AFTER 5 DAYS Yessenia Cerna MD November 05, 2020 19:02
[2020-11-05 19:12] VITALS: BP 156/70
[2020-11-05] MEDS: TAMSULOSIN 0.4 MG CAP PO SCH (20:08)
[2020-11-05] MEDS: NS 0.45% 1,000 ML IV SCH (20:11)
[2020-11-06] VITALS: BP 148/67
[2020-11-06] MEDS: ISOSORBIDE DIN. (ISORDIL) 20 MG TAB PO SCH ×4 (00:53→17:44)
[2020-11-06 04:00] VITALS: BP 155/77
[2020-11-06 06:00] LABS: HEMATOCRIT 28.3 % (42.0-52.0); HEMOGLOBIN 9.4 g/dl (13.5-17.5); MEAN CORPUSCULAR HGB CONC 33.2 g/dl (32.0-36.5); MEAN CORPUSCULAR VOLUME 96.3 fl (80.0-96.0); PLATELET COUNT, AUTOMATED 232 10^3/uL (150-450); RED BLOOD COUNT 2.94 10^6/uL (4.30-6.10); WHITE BLOOD COUNT 12.1 10^3/uL (4.0-10.0)
[2020-11-06 06:25] LABS: ALBUMIN 2.4 GM/DL (3.2-5.2); ALT/SGPT 75 U/L (12-78); BILIRUBIN,TOTAL 0.3 MG/DL (0.2-1.0); BLOOD UREA NITROGEN 44 MG/DL (7-18); CALCIUM LEVEL 8.7 MG/DL (8.8-10.2); CARBON DIOXIDE LEVEL 27 MEQ/L (21-32); CHLORIDE LEVEL 108 MEQ/L (98-107); CREATININE FOR GFR 0.86 MG/DL (0.70-1.30); GLOMERULAR FILTRATION RATE > 60.0 (>42); GLUCOSE, FASTING 240 MG/DL (70-100); POTASSIUM SERUM 4.9 MEQ/L (3.5-5.1); SODIUM LEVEL 139 MEQ/L (136-145); TOTAL PROTEIN 5.4 GM/DL (6.4-8.2)
[2020-11-06] MEDS: NS 0.45% 1,000 ML IV SCH (06:44)
[2020-11-06 08:00] VITALS: BP 152/60
[2020-11-06] MEDS: HumaLOG INSULIN (NovoLOG) PER UNIT SC SCH ×4 (08:27→20:28)
[2020-11-06] MEDS: ASPIRIN 81MG ENTERIC TABLET PO SCH (08:27)
[2020-11-06] MEDS: FINASTERIDE 5 MG TAB PO SCH (08:27)
[2020-11-06] MEDS: PRIMIDONE 25MG PER 1/2 TABLET PO SCH ×2 (08:27→20:28)
[2020-11-06] MEDS: PANTOPRAZOLE 40MG VIAL (C9113 PER 1) IV SCH (08:28)
[2020-11-06] MEDS: NEOSPORIN TOP OINT 15GM TOP SCH ×2 (08:28→20:29)
[2020-11-06] MEDS ORDERED: FUROSEMIDE 20 MG TAB PO SCH (09:00)
[2020-11-06] MEDS ORDERED: LEVEMIR (INSULIN DETEMIR) 1 UNITS/0.01ML SC SCH ×2 (09:00)
--- NOTE | 2020-11-06 09:28 | IPN ---
PROGRESS NOTE DATE: 11/05/2020 Mr. Vilchis was seen out of the bed holding himself up to sit in the chair. He denies any urinary symptoms, no dysuria or hematuria, he still has a Lamas catheter in place. There is no more hematuria, which has resolved. Urine is yellow. PHYSICAL EXAMINATION: Temperature is 96.2, pulse 60, respirations 18, blood pressure 156/70, oxygen saturation 95% on room air. Neck is supple, no stiffness. Heart: Normal S1, S2, no murmurs. Lungs are clear, no wheezes, rales, or rhonchi. Abdomen: Obese, soft, nontender. Extremities: Trace edema, right upper extremity and lower extremity weaker than the left side, the patient is out of bed to his chair with assist. LABORATORY DATA: White count is 9.4, hemoglobin 9.1, hematocrit 29, platelets 205, 92% neutrophils, 4% lymphocytes, 3% monocytes, ESR 86, sodium 138, potassium 5.2, chloride 108, bicarbonate 24, BUN 48, creatinine 1.24, glucose 224, calcium 8, AST 42, ALT 71, alkaline phosphatase 130, CRP 0.86 down from 4.16, and albumin 2.2. Urine culture had Escherichia (E) faecalis on 10/31/2020. Cerebrospinal fluid (CSF) final culture and [employer] polymerase chain reaction (PCR) was negative. Respiratory panel was negative. IMPRESSION: 1. Acute encephalopathy, being treated for polymyalgia rheumatica. Has received IV Solu-Medrol with marked improvement in symptoms, sedimentation rate, and mobility. Patient has also a history of chronic syringomyelia and does not think that he is a good candidate for surgery in [place]. He stated that he did not recover very well after his initial surgery when he was 33 in the and does not think he would do well with another surgery. 2. Right middle lobe and lower lobe aspiration pneumonia. Patient will need 5 days of Zosyn. 3. Escherichia (E) faecalis bacteriuria with hematuria secondary to Lovenox. Patient received Cipro for 3 days and this has been discontinued. PLAN: At this time, patient has been off antibiotics, he had 5 days of IV Zosyn with an overlap of 2 days with 3 days of IV Cipro. His white count is normal, mental status is normal, C-reactive protein (CRP) close to normal. Infectious disease will be signing off, there is no evidence of infection at this time.
[2020-11-06 12:00] VITALS: BP 140/64
--- NOTE | 2020-11-06 14:18 | IPNPDOC ---
Date Seen The patient was seen on 11/06/20. Progress Note SUBJECTIVE: Resolved hematuria. Not restarting AC, as atrial flutter started 11/02/20 and stopped 11/04/20- no new events. Did well with voiding trial, keeping clemens out, on floxmax. ARU consult placed. Cr wnl, fluids stopped. Last day of solumedrol. He denies any shortness of breath, chest pain, pressure, tightness, lightheadedness or dizziness. OBJECTIVE: PHYSICAL EXAM: VITAL SIGNS: SEE BELOW GENERAL: NAD, sitting up at bedside chair. AAOx3 HEENT: PERRLA, EOM intact, poor dentition, AT/NC LUNGS: CTAB. No wheezing, rales, or rhonchi. HEART: S1, S2. Sinus rhythm currently . No M/R/G ABDOMEN: Soft, nontender, nondistended, and obese. : deferred EXTREMITIES: No cyanosis, clubbing. +1-2 pitting edema. NEUROLOGIC: Generalized weakness 4/5/ in lower ext, 5/5 strength in upper ext. No focal deficits, CN 2-12 intact. Sensory and motor intact IMAGING DATA: Studies have all been reviewed. LABORATORY DATA: Please see below MICRO: Please see below ASSESSMENT: 70-year-old male with history of syringomyelia admitted for polymyalgia rheumatica, RML/RLL aspiration vs. HCAP , UTI, new onset atrial flutter. PLAN: Polymyalgia rheumatica in the setting of chronic syringomyelia -right-sided deficit improving with IV Solu-Medrol, to complete 5 total doses -PT: Pt remains below PLOF at this time and will cont to benefit from skilled PT prior to D/C. -Received full workup with repeat MRI of the brain and lumbar puncture, all of which had been unchanged and negative for any meningeal infection. -Neurology was consulted, please refer to notes -ARU consult placed, c/w PT/OT Right middle and right lower lobe aspiration vs HCAP- resolved -Afebrile, WBC wnl, all inflammatory markers improved. 95% on 2 L NC -No sputum culture available, Bcx neg -ST: speech therapy 5 times a week and to evaluate his aspiration to see if it's improving -HOB elevated when laying down -No longer on abx,- completed 5 days of Zosyn. ID signed off Acute on chronic anemia 2/2 recurrent gross hematuria and status post history of recent GI bleed -improving -H/H has been stable with resolved hematuria -Received total of two units of RBC transfusion 10/27, 10/28 -Lovenox for DVT px added back to see if tolerates lesser dose -Continue to monitor closely, daily CBC Urinary retention with clemens catheter in place poss 2/2 to UTI vs. BPH -Passed voiding trial overnight, good u/o -C/w flomax. DM type II -BS elevated with solumedrol above -c/w home levemir dose, ISS, consistent carb diet -FS AC/HS Enterococcus urinary tract infection in the setting of recent gross hematuria with clemens catheter due to urine retention. -Previously on Vancomycin and IV ciprofloxacin. -ID was consulted, completed 3 days of cipro on 11/04/20 Lower ext swelling -Restarted lasix at lower dose from home -Monitor u/o, edema Essential tremors -Stable -C/w Primidone. Hypertension -C/w current treatment History of hiatal hernia / nonbleeding internal hemorrhoids / diverticulitis / multiple polyps in the ascending colon s/p biopsy. -C/w current diet -Denies abd pain DVT px -lovenox, SCD, teds. If hematuria returns, stop lovenox again and do not restart. Resolved: Acute encephalopathy secondary to infection and polymyalgia rheumatica Hyperkalemia 2/2 to IVFs with KCL] ANTONIO 2/2 to over-diuresis and decreased oral intake due to aspiration and altered mental status, UTI, hematuria, urinary retention Atrial flutter 2/2 to infection DISPOSITION: Per PT, will benefit from continued rehab. ARU consult placed. VS, I&O, 24H, [facility] Vital Signs/I&O Vital Signs Date Time Temp Pulse Resp B/P (MAP) Pulse Ox O2 Delivery O2 Flow Rate FiO2 11/06/20 12:00 96.8 70 17 140/64 (89) 95 Nasal Cannula 2.0 10/31/20 22:00 28 I&O- Last 24 Hours up to 6 AM 11/06/20 05:59 Intake Total 4405 ml Output Total 1900 ml Balance 2505 ml Laboratory Data 24H LABS Laboratory Tests 2 11/05/20 17:14: Bedside Glucose (Misc Panel) 234H 11/05/20 20:07: Bedside Glucose (Misc Panel) 243H 11/06/20 05:23: Nucleated Red Blood Cells % (auto) 0.0, Anion Gap 4L, Glomerular Filtration Rate > 60.0, Calcium Level 8.7L, Total Bilirubin 0.3, Aspartate Amino Transf (AST/SGOT) 35, Alanine Aminotransferase (ALT/SGPT) 75, Alkaline Phosphatase 128H, Total Protein 5.4L, Albumin 2.4L, Albumin/Globulin Ratio 0.8 11/06/20 11:34: Bedside Glucose (Misc Panel) 287H CBC/BMP Laboratory Tests 11/06/20 05:23 Microbiology Microbiology 10/31/20 Respiratory Virus Panel (PCR) (LINDA) - Final, Complete 10/31/20 Fungal Smear, Received Pending 10/31/20 Fungal Culture, Received Pending 10/31/20 Viral Culture, Received Pending 10/31/20 Urine Culture - Final, Complete Enterococcus Faecalis 10/31/20 Gram Stain - Final, Complete 10/31/20 CSF Culture - Final, Complete 10/31/20 - Final, Complete 10/31/20 Blood Culture - Final, Complete NO GROWTH AFTER 5 DAYS 10/31/20 Blood Culture - Final, Complete NO GROWTH AFTER 5 DAYS Yessenia Cerna MD November 06, 2020 14:18
[2020-11-06] MEDS: methylPREDNISolone 250 MG in D5W 100 ML IV SCH (15:16)
[2020-11-06 16:00] VITALS: BP 154/66
[2020-11-06 19:41] VITALS: BP 153/67
[2020-11-06] MEDS: TAMSULOSIN 0.4 MG CAP PO SCH (20:28)
[2020-11-07] VITALS (10 sets, daily range): BP systolic 135–179; BP diastolic 58–78
[2020-11-07] MEDS: ISOSORBIDE DIN. (ISORDIL) 20 MG TAB PO SCH ×4 (00:19→17:00)
[2020-11-07 05:27] LABS: HEMATOCRIT 27.7 % (42.0-52.0); HEMOGLOBIN 9.2 g/dl (13.5-17.5); MEAN CORPUSCULAR HEMOGLOBIN 31.4 pg (27.0-33.0); MEAN CORPUSCULAR HGB CONC 33.2 g/dl (32.0-36.5); MEAN CORPUSCULAR VOLUME 94.5 fl (80.0-96.0); PLATELET COUNT, AUTOMATED 240 10^3/uL (150-450); RED BLOOD COUNT 2.93 10^6/uL (4.30-6.10); WHITE BLOOD COUNT 11.3 10^3/uL (4.0-10.0)
[2020-11-07 05:49] LABS: ALBUMIN 2.5 GM/DL (3.2-5.2); ALT/SGPT 74 U/L (12-78); BILIRUBIN,TOTAL 0.2 MG/DL (0.2-1.0); BLOOD UREA NITROGEN 48 MG/DL (7-18); C REACTIVE PROTEIN QUANTITATIV 0.37 MG/DL (0.00-0.30); CALCIUM LEVEL 8.4 MG/DL (8.8-10.2); CARBON DIOXIDE LEVEL 26 MEQ/L (21-32); CHLORIDE LEVEL 109 MEQ/L (98-107); CREATININE FOR GFR 0.94 MG/DL (0.70-1.30); GLOMERULAR FILTRATION RATE > 60.0 (>42); GLUCOSE, FASTING 242 MG/DL (70-100); SODIUM LEVEL 140 MEQ/L (136-145); TOTAL PROTEIN 5.5 GM/DL (6.4-8.2)
[2020-11-07 05:59] LABS: ERYTHROCYTE SEDIMENTATION RATE 67 mm/hr (0-20)
[2020-11-07] MEDS: PANTOPRAZOLE 40MG VIAL (C9113 PER 1) IV SCH (08:19)
[2020-11-07] MEDS: ENOXAPARIN 40MG/0.4ML SYRINGE (J1650 PER 10MG) SC SCH (08:19)
[2020-11-07] MEDS: HumaLOG INSULIN (NovoLOG) PER UNIT SC SCH ×4 (08:19→20:35)
[2020-11-07] MEDS: FUROSEMIDE 40 MG TAB PO SCH (08:20)
[2020-11-07] MEDS: ASPIRIN 81MG ENTERIC TABLET PO SCH (08:20)
[2020-11-07] MEDS: PRIMIDONE 25MG PER 1/2 TABLET PO SCH ×2 (08:20→20:35)
[2020-11-07] MEDS: FINASTERIDE 5 MG TAB PO SCH (08:20)
[2020-11-07] MEDS ORDERED: LEVEMIR (INSULIN DETEMIR) 1 UNITS/0.01ML SC SCH (09:00)
--- NOTE | 2020-11-07 16:45 | IPNPDOC ---
Date Seen The patient was seen on 11/07/20. Progress Note SUBJECTIVE: Good u/o. No acute events overnight. Per ARU, patient will likely do better at other facility for rehab. PFS to discuss options with Patient. He denies any shortness of breath, chest pain, pressure, tightness, lightheadedness or dizziness. OBJECTIVE: PHYSICAL EXAM: VITAL SIGNS: SEE BELOW GENERAL: NAD, sitting up at bedside chair. AAOx3 HEENT: PERRLA, EOM intact, poor dentition, AT/NC LUNGS: CTAB. No wheezing, rales, or rhonchi. HEART: S1, S2. Sinus rhythm currently . No M/R/G ABDOMEN: Soft, nontender, nondistended, and obese. : deferred EXTREMITIES: No cyanosis, clubbing. +2 pitting edema. NEUROLOGIC: Generalized weakness 4/5/ in lower ext, 5/5 strength in upper ext. No focal deficits, CN 2-12 intact. Sensory and motor intact IMAGING DATA: Studies have all been reviewed. LABORATORY DATA: Please see below MICRO: Please see below ASSESSMENT: 70-year-old male with history of syringomyelia admitted for polymyalgia rheumatica, RML/RLL aspiration vs. HCAP , UTI, new onset atrial flutter. PLAN: Polymyalgia rheumatica in the setting of chronic syringomyelia -right-sided deficit improved with IV Vkdo-Maofwg-mcvhsdufz 5 total doses -PT: Pt remains below PLOF at this time and will cont to benefit from skilled PT prior to D/C. -Received full workup with repeat MRI of the brain and lumbar puncture, all of which had been unchanged and negative for any meningeal infection. -Neurology was consulted, please refer to notes -ARU not option for rehab, PFS to discuss other choices with patient -C/w PT/OT Acute on chronic anemia 2/2 recurrent gross hematuria and status post history of recent GI bleed -improving -H/H has been stable with resolved hematuria -Received total of two units of RBC transfusion 10/27, 10/28 -Continue to monitor closely, daily CBC Urinary retention poss 2/2 to BPH -Clemens catheter removed -Good u/o -C/w flomax. DM type II -BS slightly improved -c/w home levemir dose, ISS, consistent carb diet -FS AC/HS Enterococcus urinary tract infection in the setting of recent gross hematuria with clemens catheter due to urine retention-treated -Previously on Vancomycin and IV ciprofloxacin. -ID was consulted, completed 3 days of cipro on 11/04/20 Right middle and right lower lobe aspiration vs HCAP- resolved -Afebrile, WBC wnl, all inflammatory markers improved. 95% on 2 L NC -No sputum culture available, Bcx neg -ST: speech therapy 5 times a week and to evaluate his aspiration to see if it's improving -HOB elevated when laying down -No longer on abx,- completed 5 days of Zosyn. ID signed off Lower ext swelling -c/w lasix now at increased dose, consider additional dosing if Cr tolerates -Monitor u/o, edema Essential tremors -Stable -C/w Primidone. Hypertension -C/w current treatment History of hiatal hernia / nonbleeding internal hemorrhoids / diverticulitis / multiple polyps in the ascending colon s/p biopsy. -C/w current diet -Denies abd pain DVT px -lovenox, SCD, teds. If hematuria returns, stop lovenox again and do not restart. Resolved: Acute encephalopathy secondary to infection and polymyalgia rheumatica Hyperkalemia 2/2 to IVFs with KCL] ANTONIO 2/2 to over-diuresis and decreased oral intake due to aspiration and altered mental status, UTI, hematuria, urinary retention Atrial flutter 2/2 to infection DISPOSITION: Per PT, will benefit from continued rehab but not good ARU cand idate. PFS aware and will see what else is available. VS, I&O, 24H, Fransicobone Vital Signs/I&O Vital Signs Date Time Temp Pulse Resp B/P (MAP) Pulse Ox O2 Delivery O2 Flow Rate FiO2 11/07/20 15:50 96.5 71 18 159/70 (99) 97 Room Air 11/06/20 16:00 2.0 I&O- Last 24 Hours up to 6 AM 11/07/20 06:00 Intake Total 2380 ml Output Total 1300 ml Balance 1080 ml Laboratory Data 24H LABS Laboratory Tests 2 11/06/20 17:38: Bedside Glucose (Misc Panel) 317H 11/06/20 20:22: Bedside Glucose (Misc Panel) 283H 11/07/20 04:48: Nucleated Red Blood Cells % (auto) 0.0, Erythrocyte Sedimentation Rate 67H, Anion Gap 5L, Glomerular Filtration Rate > 60.0, Calcium Level 8.4L, Total Bilirubin 0.2, Aspartate Amino Transf (AST/SGOT) 28, Alanine Aminotransferase (ALT/SGPT) 74, Alkaline Phosphatase 123H, C-Reactive Protein, Quantitative 0.37H, Total Protein 5.5L, Albumin 2.5L, Albumin/Globulin Ratio 0.8 11/07/20 11:52: Bedside Glucose (Misc Panel) 213H CBC/BMP Laboratory Tests 11/07/20 04:48 Microbiology Microbiology 10/31/20 Respiratory Virus Panel (PCR) (LINDA) - Final, Complete 10/31/20 Fungal Smear, Received Pending 10/31/20 Fungal Culture, Received Pending 10/31/20 Viral Culture, Received Pending 10/31/20 Urine Culture - Final, Complete Enterococcus Faecalis 10/31/20 Gram Stain - Final, Complete 10/31/20 CSF Culture - Final, Complete 10/31/20 - Final, Complete 10/31/20 Blood Culture - Final, Complete NO GROWTH AFTER 5 DAYS 10/31/20 Blood Culture - Final, Complete NO GROWTH AFTER 5 DAYS Yessenia Cerna MD November 07, 2020 16:45
[2020-11-07] MEDS: TAMSULOSIN 0.4 MG CAP PO SCH (20:35)
[2020-11-08] MEDS: ISOSORBIDE DIN. (ISORDIL) 20 MG TAB PO SCH ×3 (01:15→12:00)
[2020-11-08 06:00] VITALS: BP 141/65
[2020-11-08] MEDS: HumaLOG INSULIN (NovoLOG) PER UNIT SC SCH ×2 (07:30→12:09)
[2020-11-08] MEDS: ASPIRIN 81MG ENTERIC TABLET PO SCH (08:02)
[2020-11-08] MEDS: FINASTERIDE 5 MG TAB PO SCH (08:03)
[2020-11-08] MEDS: PRIMIDONE 25MG PER 1/2 TABLET PO SCH (08:03)
[2020-11-08] MEDS: FUROSEMIDE 40 MG TAB PO SCH (08:03)
[2020-11-08] MEDS: PANTOPRAZOLE 40MG VIAL (C9113 PER 1) IV SCH (08:04)
[2020-11-08] MEDS: ENOXAPARIN 40MG/0.4ML SYRINGE (J1650 PER 10MG) SC SCH (08:04)
[2020-11-08 08:26] LABS: HEMOGLOBIN 9.2 g/dl (13.5-17.5); MEAN CORPUSCULAR HEMOGLOBIN 31.3 pg (27.0-33.0); MEAN CORPUSCULAR HGB CONC 32.9 g/dl (32.0-36.5); MEAN CORPUSCULAR VOLUME 95.2 fl (80.0-96.0); PLATELET COUNT, AUTOMATED 239 10^3/uL (150-450); RED BLOOD COUNT 2.94 10^6/uL (4.30-6.10); WHITE BLOOD COUNT 10.6 10^3/uL (4.0-10.0)
[2020-11-08 08:51] LABS: ALBUMIN 2.5 GM/DL (3.2-5.2); ALT/SGPT 76 U/L (12-78); BILIRUBIN,TOTAL 0.3 MG/DL (0.2-1.0); BLOOD UREA NITROGEN 53 MG/DL (7-18); CALCIUM LEVEL 8.3 MG/DL (8.8-10.2); CARBON DIOXIDE LEVEL 30 MEQ/L (21-32); CHLORIDE LEVEL 108 MEQ/L (98-107); CREATININE FOR GFR 1.09 MG/DL (0.70-1.30); GLOMERULAR FILTRATION RATE > 60.0 (>42); GLUCOSE, FASTING 47 MG/DL (70-100); POTASSIUM SERUM 4.8 MEQ/L (3.5-5.1); SODIUM LEVEL 141 MEQ/L (136-145); TOTAL PROTEIN 5.4 GM/DL (6.4-8.2)
[2020-11-08] MEDS ORDERED: LEVEMIR (INSULIN DETEMIR) 1 UNITS/0.01ML SC SCH (09:00)
[2020-11-08] MEDS ORDERED: FINA5TAB2 PO (11:39)
[2020-11-08] MEDS ORDERED: AMLO1TAB25 PO (11:39)
[2020-11-08] MEDS ORDERED: INSUHUMDS SC (11:39)
[2020-11-08] MEDS ORDERED: MOM30SS2 PO (11:39)
[2020-11-08] MEDS ORDERED: POLYOPD OU (11:39)
[2020-11-08] MEDS ORDERED: SENN-52 PO (11:39)
[2020-11-08] MEDS ORDERED: ISOS20TAB PO (11:39)
[2020-11-08] MEDS ORDERED: LOVE1INJ SC (11:39)
[2020-11-08 12:00] VITALS: BP 124/55
--- NOTE | 2020-11-08 19:00 | DS.PDOC ---
Discharge Summary General Date of Admission Oct 26, 2020 at 13:57 Date of Discharge 11/08/20 Attending Physician: Yessenia Cerna MD Discharge Summary HISTORY OF PRESENT ILLNESS: Patient is a 70 y/o M with PMH below who presented to [facility] on 10/26/20 with complaint of progressively worsening right-sided weakness ever since his recent discharge from ARU. He was ambulatory at home, albeit apparently he has been slowing down progressively over the past few weeks. Then on 10/25/20 he was in bed and was unable to get out of bed due to weakness on his right side. Apparently previously was able to use his right hand fairly well, even the point where he was able to write, now his weakness has progressed to the point where he is only just able to lift it up, but is not able to use it for really any meaningful tasks. His right leg also seems to be much weaker as well, now it is to the point where he is unable to ambulate. HOSPITAL COURSE: Patient was found to have confusion 2/2 to acute encephalopathy secondary to infection and polymyalgia rheumatica, hyperkalemia 2/2 to IVFs with KCL, ANTONIO 2/2 to over-diuresis and decreased oral intake due to aspiration and altered mental status, UTI, hematuria, urinary retention. Polymyalgia rheumatica in the setting of chronic syringomyelia presented with the right-sided deficit improved with IV Giup-Mktoyo-ozarujvkm 5 total doses. He received full workup with repeat MRI of the brain and lumbar puncture, all of which had been unchanged and negative for any meningeal infection. Neurology was consulted, please refer to notes. He was treated for acute on chronic anemia 2/2 recurrent gross hematuria and s/p history of recent GI bleed. EGD and colo was done on 10/28/20, showing Z line abnormality, biopsies were neg for malignancy. He received total of two units of RBC transfusion 10/27, 10/28. H/H later stabilized, hematuria resolved with stopping of eliquis for transient atrial fib with RVR. It was found he did not need to continue AC as atrial fib resolved. CBC remained improved. Urinary retention poss 2/2 to BPH and he was continued on flomax, finasteride. He did well without the clemens catheter. Enterococcus urinary tract infection in the setting of recent gross hematuria with clemens catheter due to urine retention was treated, he completed 3 days of cipro on 5/3/21. Right middle and right lower lobe aspiration vs HCAP was treated with 5 days of Zosyn. Sputum cx was not obtained. He remained afebrile, WBC wnl, all inflammatory markers improved. He was weaned off O2. On 11/08/20 patient was discharged to ARU to continue r ehabilitation. PAST MEDICAL HISTORY: Syringomyelia with right-sided deficits Gait instability Diabetes mellitus type 2 Obstructive sleep apnea with CPAP Hypertension Iron deficiency anemia Hyperlipidemia Depression Benign prostatic hypertrophy Low testosterone GERD Anxiety History of gout PAST SURGICAL HISTORY: Shunt placement 1983 Removal of right scalene muscle SOCIAL HISTORY: Quit smoking years ago. Will only have a few beers a week now, previously used to drink more alcohol. Denies illicit drug use FAMILY HISTORY: Father at age 58 with a history of CAD. Mother in her 70s with a history of CHF. DISCHARGE MEDS: Please see below PHYSICAL EXAM: VITAL SIGNS: SEE BELOW GENERAL: NAD, sitting up at bedside chair. AAOx3 HEENT: PERRLA, EOM intact, poor dentition, AT/NC LUNGS: CTAB. No wheezing, rales, or rhonchi. HEART: S1, S2. Sinus rhythm currently . No M/R/G ABDOMEN: Soft, nontender, nondistended, and obese. : deferred EXTREMITIES: No cyanosis, clubbing. +2 pitting edema. NEUROLOGIC: Generalized weakness 4/5 in lower ext, 5/5 strength in upper ext. No focal deficits, CN 2-12 intact. Sensory and motor intact IMAGING DATA: Studies have all been reviewed. LABORATORY DATA: Please see below MICRO: Please see below ASSESSMENT: 70-year-old male with history of syringomyelia admitted for polymyalgia rheumatica, RML/RLL aspiration vs. HCAP , UTI, new onset atrial flutter. PLAN: Polymyalgia rheumatica in the setting of chronic syringomyelia -right-sided deficit improved with IV Ytti-Xdzcmc-pjmejwkbu 5 total doses -PT: Pt remains below PLOF at this time and will cont to benefit from skilled PT prior to D/C. -Received full workup with repeat MRI of the brain and lumbar puncture, all of which had been unchanged and negative for any meningeal infection. -Neurology was consulted, please refer to notes -ARU today and will c/w PT/OT . goal is home with daughter Acute on chronic anemia 2/2 recurrent gross hematuria and status post history of recent GI bleed -improving -S/p EGD/colonoscopy. NEg biopsies -H/H has been stable with resolved hematuria -Received total of two units of RBC transfusion 10/27, 10/28 -Continue to monitor closely, daily CBC Urinary retention poss 2/2 to BPH -Clemens catheter removed -Good u/o -C/w flomax, finasteride DM type II -Some hypoglycemia this AM, stopped Hs ISS and decreased levemir -BS slightly improved -c/w levemir dose, ISS, consistent carb diet -FS AC/HS Enterococcus urinary tract infection in the setting of recent gross hematuria with clemens catheter due to urine retention-treated -Previously on Vancomycin and IV ciprofloxacin. -ID was consulted, completed 3 days of cipro on 11/04/20 Right middle and right lower lobe aspiration vs HCAP- resolved -Afebrile, WBC wnl, all inflammatory markers improved. 95% on 2 L NC -No sputum culture available, Bcx neg -ST: speech therapy 5 times a week and to evaluate his aspiration to see if it's improving -HOB elevated when laying down -No longer on abx,- completed 5 days of Zosyn. ID signed off Lower ext swelling -c/w lasix now at home dose -Monitor u/o, edema Essential tremors -Stable -C/w Primidone. Hypertension -C/w current treatment History of hiatal hernia / nonbleeding internal hemorrhoids / diverticulitis / multiple polyps in the ascending colon s/p biopsy. -C/w current diet -Denies abd pain DVT px -lovenox Resolved: Acute encephalopathy secondary to infection and polymyalgia rheumatica Hyperkalemia 2/2 to IVFs with KCL] ANTONIO 2/2 to over-diuresis and decreased oral intake due to aspiration and altered mental status, UTI, hematuria, urinary retention Atrial flutter 2/2 to infection DISPOSITION: Per PT, will benefit from continued rehab. D/c to ARU today TIME SPENT ON DISCHARGE: 35 minutes. Vital Signs/I&Os Vital Signs Date Time Temp Pulse Resp B/P (MAP) Pulse Ox O2 Delivery O2 Flow Rate FiO2 11/08/20 12:00 124/55 11/08/20 08:03 78 11/08/20 06:00 98.0 20 99 NIPPV (BIPAP/CPAP) 11/06/20 16:00 2.0 I&O- Last 24 Hours up to 6 AM 11/08/20 06:00 Intake Total 2060 ml Output Total 2050 ml Balance 10 ml Laboratory Data Labs 24H Laboratory Tests 2 11/07/20 20:30: Bedside Glucose (Misc Panel) 158H 11/08/20 07:24: Bedside Glucose (Misc Panel) 54L 11/08/20 07:35: Nucleated Red Blood Cells % (auto) 0.0, Anion Gap 3L, Glomerular Filtration Rate > 60.0, Calcium Level 8.3L, Total Bilirubin 0.3, Aspartate Amino Transf (AST/SGOT) 35, Alanine Aminotransferase (ALT/SGPT) 76, Alkaline Phosphatase 109, Total Protein 5.4L, Albumin 2.5L, Albumin/Globulin Ratio 0.9 11/08/20 07:54: Bedside Glucose (Misc Panel) 59L 11/08/20 08:33: Bedside Glucose (Misc Panel) 108 11/08/20 11:27: Bedside Glucose (Misc Panel) 112H CBC/BMP Laboratory Tests 11/08/20 07:35 FSBS Laboratory Tests Test 11/07/20 20:30 11/08/20 07:24 11/08/20 07:54 11/08/20 08:33 Range/Units Bedside Glucose (Misc Panel) 158 54 59 108 83-110 MG/DL Test 11/08/20 11:27 Range/Units Bedside Glucose (Misc Panel) 112 83-110 MG/DL Microbiology Microbiology 10/31/20 Respiratory Virus Panel (PCR) (LINDA) - Final, Complete 10/31/20 Fungal Smear, Received Pending 10/31/20 Fungal Culture, Received Pending 10/31/20 Viral Culture, Received Pending 10/31/20 Urine Culture - Final, Complete Enterococcus Faecalis 10/31/20 Gram Stain - Final, Complete 10/31/20 CSF Culture - Final, Complete 10/31/20 - Final, Complete 10/31/20 Blood Culture - Final, Complete NO GROWTH AFTER 5 DAYS 10/31/20 Blood Culture - Final, Complete NO GROWTH AFTER 5 DAYS Discharge Medications Scheduled Allopurinol (Allopurinol) 100 Mg Tablet, 100 MG PO DAILY, (Reported) Amlodipine Besylate (Amlodipine Besylate) 10 Mg Tablet, 10 MG PO DAILY Aspirin (Aspirin EC) 81 Mg Tablet.dr, 81 MG PO QPM, (Reported) Cholecalciferol (Vitamin D3) (Vitamin D3) 1,000 Unit Tablet, 1,000 UNITS PO DAILY, (Reported) Docusate Sodium (Dok) 100 Mg Capsule, 100 MG PO DAILY, (Reported) Enoxaparin Sodium (Lovenox) 40 Mg/0.4 Ml Syringe, 40 MG SC DAILY Ferrous Sulfate (Ferrous Sulfate) 325 Mg Tablet, 325 MG PO BID, (Reported) Finasteride (Finasteride) 5 Mg Tablet, 5 MG PO DAILY Furosemide (Furosemide) 40 Mg Tablet, 40 MG PO DAILY, (Reported) Insulin Detemir (Levemir) 100 Unit/1 Ml Vial, 26 UNITS SC DAILY, (Reported) Insulin Human Lispro (Humalog) 100 Unit/1 Ml Vial, 0 UNITS SC AC Isosorbide Dinitrate (Isosorbide Dinitrate) 20 Mg Tablet, 20 MG PO Q6H Multivitamins (Thera M Plus Tablet) 1 Tab Tab, 1 TAB PO DAILY, (Reported) Omeprazole (Omeprazole) 20 Mg Capsule.dr, 40 MG PO DAILY, (Reported) Primidone (Primidone) 50 Mg Tablet, 25 MG PO BID, (Reported) Rosuvastatin Calcium (Crestor) 20 Mg Tablet, 20 MG PO QPM, (Reported) Sertraline HCl (Sertraline HCl) 50 Mg Tablet, 50 MG PO DAILY, (Reported) Tamsulosin HCl (Flomax) 0.4 Mg Capsule, 0.4 MG PO QPM, (Reported) Scheduled PRN Hydroxyzine HCl (Hydroxyzine HCl) 10 Mg Tablet, 10 MG PO QID PRN for ANXIETY, (Reported) Magnesium Hydroxide (Milk of Magnesia) 400 Mg/5 Ml Oral.susp, 30 ML PO Q4HP PRN for CONSTIPATION Nitroglycerin (Nitrostat) 0.4 Mg Subl, 0.4 MG SL NITRO PRN for ANGINA, (Reported) Polyvinyl Alcohol (Artificial Tears) 15 Ml Drops, 2 DROP OU TIDP PRN for DRY EYES Sennosides/Docusate Sodium (Senna Plus Tablet) 1 Each Tablet, 2 TAB PO BIDP PRN for CONSTIPATION Allergies Coded Allergies: lisinopril (Verified Adverse Reaction, Intermediate, HYPOTENSION, 10/21/20) metformin (Verified Adverse Reaction, Intermediate, LOWERS KIDNEY FUNCTON, 10/21/20) finasteride (Verified Adverse Reaction, Unknown, DIZZINESS, 10/21/20) Yessenia Cerna MD November 08, 2020 19:00
== END 2020-11-08 14:40 | DRG 545 ==
LOC: M ED 10:12 → M ED INP 13:57 → ENRESERV 15:00 → M MSPAV 19:40 → M PCU 10-31 17:39 → M MSPAV 11-07 16:39
PROVIDERS: ADMIT Neuromusculoskeletal Medicine & OMM; ATTEND Internal Medicine
PROC: 30233N1 Transfusion of Nonautologous Red Blood Cells into Peripheral Vein, Percutaneous Approach (ICD-10-PCS; principal; 2020-10-27)
PROC: 0DB58ZX Excision of Esophagus, Via Natural or Artificial Opening Endoscopic, Diagnostic (ICD-10-PCS; 2020-10-28)
PROC: 0DBK8ZX Excision of Ascending Colon, Via Natural or Artificial Opening Endoscopic, Diagnostic (ICD-10-PCS; 2020-10-28)
PROC: 0W3P8ZZ Control Bleeding in Gastrointestinal Tract, Via Natural or Artificial Opening Endoscopic (ICD-10-PCS; 2020-10-28)
PROC: 009U3ZX Drainage of Spinal Canal, Percutaneous Approach, Diagnostic (ICD-10-PCS; 2020-10-31)
DX: M35.3 Polymyalgia rheumatica (principal); G93.41 Metabolic encephalopathy; J18.9 Pneumonia, unspecified organism; J69.0 Pneumonitis due to inhalation of food and vomit; G95.0 Syringomyelia and syringobulbia; N17.9 Acute kidney failure, unspecified; D62 Acute posthemorrhagic anemia; N39.0 Urinary tract infection, site not specified; I48.92 Unspecified atrial flutter; E87.1 Hypo-osmolality and hyponatremia; R50.9 Fever, unspecified; R31.0 Gross hematuria; I48.91 Unspecified atrial fibrillation; G47.33 Obstructive sleep apnea (adult) (pediatric); I10 Essential (primary) hypertension; E11.649 Type 2 diabetes mellitus with hypoglycemia without coma; D50.9 Iron deficiency anemia, unspecified; E78.5 Hyperlipidemia, unspecified; N40.0 Benign prostatic hyperplasia without lower urinary tract symptoms; F32.9 Major depressive disorder, single episode, unspecified; F41.9 Anxiety disorder, unspecified; M10.9 Gout, unspecified; E87.5 Hyperkalemia; G25.0 Essential tremor; K44.9 Diaphragmatic hernia without obstruction or gangrene; Z79.899 Other long term (current) drug therapy; Z79.82 Long term (current) use of aspirin; Z88.8 Allergy status to other drugs, medicaments and biological substances; I25.10 Atherosclerotic heart disease of native coronary artery without angina pectoris; E55.9 Vitamin D deficiency, unspecified; D12.2 Benign neoplasm of ascending colon; K57.30 Diverticulosis of large intestine without perforation or abscess without bleeding; K64.0 First degree hemorrhoids; E11.51 Type 2 diabetes mellitus with diabetic peripheral angiopathy without gangrene

== ENCOUNTER 2020-11-08 12:06 | Inpatient (IN) | payer MEDICARE, BC, OTHER ==
[~2020-11-08] VITALS: Ht 172.7 cm; Wt 99.5 kg
[~2020-11-08 12:06] MED LIST changes: +ALLO100T PO; +AMLO1TAB25 PO; +D31000TA2 PO; +INSUDET SC; +ISOS20TAB PO; +LOVE1INJ SC; +MOM30SS2 PO; +OMEP1CAP73 PO; +POLYOPD OU
[2020-11-08] MEDS ORDERED: ACETAMINOPHEN TAB 650MG DOSE (2X325MG) PO PRN (13:35)
[2020-11-08] MEDS ORDERED: DEXTROSE 50% 50 ML SYRINGE IV PRN (13:35)
[2020-11-08] MEDS ORDERED: GLUCAGON INJ 1MG VIAL SC PRN (13:35)
[2020-11-08] MEDS ORDERED: BISACODYL 5 MG TAB PO PRN (13:35)
[2020-11-08] MEDS ORDERED: GLUCOSE 4GM CHEW TABLET PO PRN (13:35)
[2020-11-08] MEDS ORDERED: NITROGLYCERIN 0.4 MG SUBL TABLET SL PRN (13:35)
--- NOTE | 2020-11-08 13:40 | HPEPDOC ---
Patient Coordinator Note DATE OF ADMISSION: 11-08-20 DATE OF SERVICE: 11-08-20 TIME OF ADMISSION: Please refer to physician's admission order. SOURCE OF ADMISSION INFORMATION:[facility] record and patient CHIEF COMPLAINT: syringomyelia HISTORY OF PRESENT ILLNESS: 70M pmh cervical-thoracic syringomyelia s/p shunt 1982, chiari 1 malformation, DM with peripheral polyneuropathy, CHF, depression, BPH, GERD, LIANNA, HTN, recent stay on ARU where he was discharged at an ambulatory level, presented to [facility] ED on 10-26-20 complaining of decreased ability to walk and worsening right sided weakness. MRI was done of ejpbrezc-[id number] region showing extensive syringomyelia without any changes from September 2020 images. Brain MRI was negative for stroke. He was seen by neurology who recommended IV solumedrol for possible polymyalgia rheumatic flair, was aggressively diuresed for his fluid overloaded status, developed Aflutter with hematuria requiring blood transfusions, and ultimately Lovenox was discontinued. He also had blood loss due to GI bleed with inhouse endoscopy revealing non-bleeding internal hemorrhoids, diverticulitis, multiple polyps. He was encephalopathic and started on antibiotics for pneumonia and UTI, followed closely by ID, and eventually taken off antibiotics. His mobility began to improve, but was still far below his baseline for ambulation and ADLs, and he was deemed medically appropriate for discharge to ARU. REVIEW OF SYSTEMS: The following is a completed review of systems and has been r eviewed. Review of systems otherwise unremarkable. PAIN: Patient self reports no pain EYES: No recent vision changes EARS, NOSE, & THROAT: No throat pain, or dysphagia, or rhinorrhea CARDIOVASCULAR: Denies chest pain or palpitations PULMONARY: Denies shortness of breath GASTROINTESTINAL: Denies constipation/diarrhea GENITOURINARY: +intermittent hematuria MUSCULOSKELETAL: generalized weakness NEUROLOGICAL: denies paresthesias HEMATOLOGICAL: +anemia SKIN: denies rash PSYCHIATRIC: Unremarkable All other review of systems found to be negative. PAST MEDICAL HISTORY: as per HPI ALLERGIES: Please see below. MEDICATIONS: Please see below. FAMILY HISTORY: cardiac SOCIAL HISTORY: former smoker, no illicit drugs, occasional ETOH DIET: low sodium, consistent PHYSICAL EXAMINATION: VITAL SIGNS: Please see below. GENERAL: Pleasant and cooperative. No acute distress. HEENT: PERRL. Extraocular movements intact. Clear conjunctiva CARDIOVASCULAR: Regular rate and rhythm. No murmurs, rubs, or gallops LUNGS: Clear to auscultation bilaterally. No wheezes. No rhonchi ABDOMEN: Soft, nontender, mildly distended. Positive bowel sounds. NEUROLOGICAL: Alert and oriented times three. Cranial nerves II through XII grossly intact. Sensation grossly intact +babinski bilat EXTREMITIES: 5\5 strength bilateral upper extremities. 5\5 strength right lower extremity. 5/5 strength in left lower extremity. SKIN: no sacrum ulcers LABORATORY DATA: Please see below. IMAGING: Imaging documentation personally reviewed by record FUNCTIONAL STATUS: Premorbid: Mod-Independent with all activities of daily life as well as mobility On Admission: Min-assist to contact guard for bed mobility, ambulation, functional transfers, dressing, mod-max for lower body dressing GOALS: Mod-I for ambulation, functional transfers, bed mobility, dressing, toileting, bathing ASSESSMENT:70-year-old M with past medical history of syringomyelia who presents status post worsening weakness in setting of possible polymyalgia rheumatica flair and encephalopathy due to PNA and UTI. PLAN: 1. Rehab- PT/OT- advance mobility and ADL, strengthen/stretch/maintain ROM all 4 limbs -will defer TEST BORER for now as cleared for regular diet prior to ARU on admission 2. Neuro- hx of cervicothoracic syrinx with worsening weakness in setting of possible polymyalgia rheumatic flair s/p IV solumedrol -f/u neurology and neuro-surgery, patient declining neurosurgical intervention at this time -tremor, c/u primidone 3. Cardiac- chronic diastolic CHF, c/u diuretic, daily weights, and fluid restrict -HTN c/u BP meds -recent Aflutter, off AC due to GI bleed and hematuria- on ASA 4. Resp- hx of LIANNA on CPAP, s/u course of Zosyn for possible HAP vs aspiration PNA- cleared by speech for regular diet, monitor for infection -c/u combivent and incentive spirometry 5. GI- s/p recent endoscopy +non-bleeding internal hemorrhoids, diverticulitis, and polyps removed- f/u GI outpatient -prilosec for ppx 6. Endo- hx fo DM c/u insulin and ISS, adjust prn 7. Psych- hx of depression c/u zoloft 8. DVT ppx- lovenox 9. - BPH c/u flomax, monitor for hematuria 10. Heme- iron deficiency anemia c/u iron supplements, recent blood loss due to hematuria and gi bleed- monitor, consider transfusion if Hgb <8 11. Dispo- TBD POST ADMISSION PHYSICIAN EVALUATION: Medical and functional status: Description of medical status, medical assessment: As above. Rehabilitation diagnosis and current and prior cold morbid medical conditions as above. Risk of complications and plans to mitigate them as above. Description of functional status current status is as above. Prior status as above. Status compared to preadmission: There are no clinically significant differences between the patient's current status and the information described on the preadmission screening document. Treatment plan anticipated: Treatment plan is as described above. Required disciplines including physical therapy, occupational therapy, others as noted above Intensity of services: 3 hours a day, 6 days a week. Special considerations: There are no specific special or safety considerations that would likely preclude immediate implementation of an intensive rehabilitation program or subsequently influence the plan of care. ATTESTATION: Considering all the information above, it is my best judgment that this patient requires intensive rehabilitation therapy as described above and an inpatient hospital environment due to the complexity of nursing, medical, and rehabilitation needs required by the patient. Furthermore, this patient can reasonably be expected to participate in an benefit from an inpatient rehabilitation stay with an interdisciplinary team approach to the delivery of rehabilitation care under the direction and supervision of rehabilitation physician. PROGNOSIS: good ESTIMATED LENGTH OF STAY:12-14 days. PROJECTED DISCHARGE DESTINATION: Home with family support and any durable medical equipment required to increase functional safety and mobility TIME SPENT COUNSELING AND COORDINATING INITIAL CARE: Greater than 70 minutes. Vital Signs Vital Signs Date Time Temp Pulse Resp B/P (MAP) Pulse Ox O2 Delivery O2 Flow Rate FiO2 11/08/20 14:20 98.1 75 18 141/63 (89) 96 Room Air Home Medications Scheduled Allopurinol (Allopurinol) 100 Mg Tablet, 100 MG PO DAILY, (Reported) Amlodipine Besylate (Amlodipine Besylate) 10 Mg Tablet, 10 MG PO DAILY Aspirin (Aspirin EC) 81 Mg Tablet.dr, 81 MG PO QPM, (Reported) Cholecalciferol (Vitamin D3) (Vitamin D3) 1,000 Unit Tablet, 1,000 UNITS PO DAILY, (Reported) Docusate Sodium (Dok) 100 Mg Capsule, 100 MG PO DAILY, (Reported) Enoxaparin Sodium (Lovenox) 40 Mg/0.4 Ml Syringe, 40 MG SC DAILY Ferrous Sulfate (Ferrous Sulfate) 325 Mg Tablet, 325 MG PO BID, (Reported) Finasteride (Finasteride) 5 Mg Tablet, 5 MG PO DAILY Furosemide (Furosemide) 40 Mg Tablet, 40 MG PO DAILY, (Reported) Insulin Detemir (Levemir) 100 Unit/1 Ml Vial, 26 UNITS SC DAILY, (Reported) Insulin Human Lispro (Humalog) 100 Unit/1 Ml Vial, 0 UNITS SC AC Isosorbide Dinitrate (Isosorbide Dinitrate) 20 Mg Tablet, 20 MG PO Q6H Multivitamins (Thera M Plus Tablet) 1 Tab Tab, 1 TAB PO DAILY, (Reported) Omeprazole (Omeprazole) 20 Mg Capsule.dr, 40 MG PO DAILY, (Reported) Primidone (Primidone) 50 Mg Tablet, 25 MG PO BID, (Reported) Rosuvastatin Calcium (Crestor) 20 Mg Tablet, 20 MG PO QPM, (Reported) Sertraline HCl (Sertraline HCl) 50 Mg Tablet, 50 MG PO DAILY, (Reported) Tamsulosin HCl (Flomax) 0.4 Mg Capsule, 0.4 MG PO QPM, (Reported) Scheduled PRN Hydroxyzine HCl (Hydroxyzine HCl) 10 Mg Tablet, 10 MG PO QID PRN for ANXIETY, (Reported) Magnesium Hydroxide (Milk of Magnesia) 400 Mg/5 Ml Oral.susp, 30 ML PO Q4HP PRN for CONSTIPATION Nitroglycerin (Nitrostat) 0.4 Mg Subl, 0.4 MG SL NITRO PRN for ANGINA, (Reported) Polyvinyl Alcohol (Artificial Tears) 15 Ml Drops, 2 DROP OU TIDP PRN for DRY EYES Sennosides/Docusate Sodium (Senna Plus Tablet) 1 Each Tablet, 2 TAB PO BIDP PRN for CONSTIPATION Allergies Coded Allergies: lisinopril (Verified Adverse Reaction, Intermediate, HYPOTENSION, 10/21/20) metformin (Verified Adverse Reaction, Intermediate, LOWERS KIDNEY FUNCTON, 10/21/20) finasteride (Verified Adverse Reaction, Unknown, DIZZINESS, 10/21/20) A-FIB/CHADSVASC A-FIB History Current/History of A-Fib/PAF?: Yes Current PO Anticoag Therapy: No LV HEREDIA MD November 08, 2020 13:40
[2020-11-08 14:20] VITALS: BP 141/63
[2020-11-08] MEDS: POLYVINYL ALCOHOL OPHTH SOLN 15 ML(LIQUITEARS) OU SCH ×2 (18:09→21:18)
[2020-11-08] MEDS: LACTOBACILLUS ACIDOPHILUS CAP (BACID) PO SCH ×2 (18:09→21:18)
[2020-11-08] MEDS: ISOSORBIDE DIN. (ISORDIL) 20 MG TAB PO SCH ×2 (18:12→23:39)
[2020-11-08] MEDS: HumaLOG INSULIN (NovoLOG) PER UNIT SC SCH (18:13)
[2020-11-08] MEDS: REMEDY PHYTOPLEX Z-GUARD PASTE 113GM TUBE (FROM STOREROOM PRODUCT) TOP SCH ×2 (18:13→21:00)
[2020-11-08 20:00] VITALS: BP 150/60
[2020-11-08] MEDS: COMBIVENT RESPIMAT 100-20MCG INHALER 4GM INH SCH (20:08)
[2020-11-08] MEDS ORDERED: HumaLOG INSULIN (NovoLOG) PER UNIT SC SCH (21:00)
[2020-11-08] MEDS: ROSUVASTATIN 10 MG TAB (CRESTOR) PO SCH (21:17)
[2020-11-08] MEDS: TAMSULOSIN 0.4 MG CAP PO SCH (21:18)
[2020-11-08] MEDS: DOCUSATE SODIUM 100MG CAPSULE PO SCH (21:18)
[2020-11-08] MEDS: SENNA 8.6 MG TAB (SENOKOT) PO SCH (21:18)
[2020-11-08] MEDS: PRIMIDONE 25MG PER 1/2 TABLET PO SCH (21:18)
[2020-11-08] MEDS: FERROUS SULFATE 325MG TAB PO SCH (21:18)
[2020-11-08] MEDS: guaiFENesin 200 MG TAB PO SCH (21:18)
[2020-11-09] MEDS: ISOSORBIDE DIN. (ISORDIL) 20 MG TAB PO SCH ×4 (05:44→23:41)
[2020-11-09 05:45] VITALS: BP 163/74
[2020-11-09 06:58] LABS: BASO % 0.1 % (0.0-1.0); EOS # 0.1 10^3/uL (0.0-0.5); HEMATOCRIT 28.8 % (42.0-52.0); HEMOGLOBIN 9.4 g/dl (13.5-17.5); LYMPH # 0.6 10^3/uL (1.5-5.0); LYMPH % 5.2 % (24.0-44.0); MEAN CORPUSCULAR HEMOGLOBIN 31.1 pg (27.0-33.0); MEAN CORPUSCULAR HGB CONC 32.6 g/dl (32.0-36.5); MEAN CORPUSCULAR VOLUME 95.4 fl (80.0-96.0); MONO # 0.7 10^3/uL (0.0-0.8); MONO % 5.3 % (2.0-8.0); NEUTROPHILS # 10.9 10^3/uL (1.5-8.5); NEUTROPHILS % 87.7 % (36.0-66.0); PLATELET COUNT, AUTOMATED 247 10^3/uL (150-450); RED BLOOD COUNT 3.02 10^6/uL (4.30-6.10); WHITE BLOOD COUNT 12.4 10^3/uL (4.0-10.0)
[2020-11-09] MEDS: COMBIVENT RESPIMAT 100-20MCG INHALER 4GM INH SCH ×3 (07:10→20:52)
[2020-11-09 07:25] LABS: ALBUMIN 2.5 GM/DL (3.2-5.2); ALT/SGPT 80 U/L (12-78); BILIRUBIN,TOTAL 0.3 MG/DL (0.2-1.0); BLOOD UREA NITROGEN 54 MG/DL (7-18); CALCIUM LEVEL 8.6 MG/DL (8.8-10.2); CARBON DIOXIDE LEVEL 29 MEQ/L (21-32); CHLORIDE LEVEL 109 MEQ/L (98-107); GLOMERULAR FILTRATION RATE > 60.0 (>42); GLUCOSE, FASTING 71 MG/DL (70-100); POTASSIUM SERUM 4.7 MEQ/L (3.5-5.1); SODIUM LEVEL 141 MEQ/L (136-145); TOTAL PROTEIN 5.3 GM/DL (6.4-8.2)
[2020-11-09] MEDS: HumaLOG INSULIN (NovoLOG) PER UNIT SC SCH ×3 (07:30→17:25)
[2020-11-09 08:00] VITALS: BP 160/68
[2020-11-09] MEDS: LEVEMIR (INSULIN DETEMIR) 1 UNITS/0.01ML SC SCH (08:25)
[2020-11-09] MEDS: ENOXAPARIN 40MG/0.4ML SYRINGE (J1650 PER 10MG) SC SCH (08:26)
[2020-11-09] MEDS: guaiFENesin 200 MG TAB PO SCH ×2 (08:26→20:43)
[2020-11-09] MEDS: ASPIRIN 81MG ENTERIC TABLET PO SCH (08:27)
[2020-11-09] MEDS: SERTRALINE HCL 25 MG TABLET PO SCH (08:27)
[2020-11-09] MEDS: FERROUS SULFATE 325MG TAB PO SCH ×2 (08:27→20:43)
[2020-11-09] MEDS: DOCUSATE SODIUM 100MG CAPSULE PO SCH ×2 (08:27→20:43)
[2020-11-09] MEDS: FUROSEMIDE 40 MG TAB PO SCH (08:27)
[2020-11-09] MEDS: OMEPRAZOLE 20 MG CAP PO SCH (08:27)
[2020-11-09] MEDS: VITAMIN D 1,000 INTERNATIONAL UNITS TABLET PO SCH (08:27)
[2020-11-09] MEDS: LACTOBACILLUS ACIDOPHILUS CAP (BACID) PO SCH ×3 (08:27→20:43)
[2020-11-09] MEDS: allopurinoL 100 MG TAB PO SCH (08:27)
[2020-11-09] MEDS: MULTIVITAMINS/MINERALS THERAP 1 TAB PO SCH (08:27)
[2020-11-09] MEDS: PRIMIDONE 25MG PER 1/2 TABLET PO SCH ×2 (08:29→20:43)
[2020-11-09] MEDS: POLYVINYL ALCOHOL OPHTH SOLN 15 ML(LIQUITEARS) OU SCH ×3 (08:29→20:44)
[2020-11-09] MEDS: REMEDY PHYTOPLEX Z-GUARD PASTE 113GM TUBE (FROM STOREROOM PRODUCT) TOP SCH ×3 (08:29→20:44)
--- NOTE | 2020-11-09 11:52 | IPNPDOC ---
Date Seen The patient was seen on 11/09/20. Progress Note SUBJECTIVE: Continuing to follow patient after discharge from inpatient 11/08/20. Stopped HS ISS due to BS 83 this AM, Cr remains stable. Giving extra dose of lasix this afternoon as Cr is normal and he continues to hold on to excess fluid in lower ext. Patient feels good and denies incr SOB, fevers, chills, chest pain. OBJECTIVE: PHYSICAL EXAM: VITAL SIGNS: SEE BELOW GENERAL: NAD, sitting up at bedside chair. AAOx3 HEENT: PERRLA, EOM intact, poor dentition, AT/NC LUNGS: CTAB. No wheezing, rales, or rhonchi. HEART: S1, S2. Sinus rhythm currently . No M/R/G ABDOMEN: Soft, nontender, nondistended, and obese. : deferred EXTREMITIES: No cyanosis, clubbing. +1-2 pitting edema b/l lower ext. NEUROLOGIC: Generalized weakness 4/5 in lower ext, 5/5 strength in upper ext. No focal deficits, CN 2-12 intact. Sensory and motor intact IMAGING DATA: Studies have all been reviewed. LABORATORY DATA: Please see below MICRO: Please see below ASSESSMENT: 70-year-old male with history of syringomyelia admitted to ARU for continued rehab after hospitalization for polymyalgia rheumatica, RML/RLL aspiration vs. HCAP , UTI. PLAN: Weakness likely 2/2 to polymyalgia rheumatica in the setting of chronic syringomyelia -C/w PT/OT and tx for issues below Polymyalgia rheumatica in the setting of chronic syringomyelia -right-sided deficit improved with IV Lari-Uaeiss-dmnvlclio 5 total doses -PT: would benefit from continued rehab -Received full workup with repeat MRI of the brain and lumbar puncture, all of which had been unchanged and negative for any meningeal infection. -Neurology was consulted, please refer to prior inpatient notes -C/w PT/OT . Goal is home with daughter Acute on chronic anemia 2/2 recurrent gross hematuria and status post history of recent GI bleed -H/H 9.10/30 -S/p EGD/colonoscopy. NEg biopsies -Resolved hematuria -Received total of two units of RBC transfusion 10/27, 10/28 -Continue to monitor closely, regular CBC Lower ext swelling -c/w lasix daily, giving extra dose this afternoon -Monitor u/o, edema Urinary retention poss 2/2 to BPH -Clemens catheter removed inpatient stay -Good u/o -C/w flomax, finasteride DM type II worsened by steroids -As time goes on, requires less coverage due to BS normalizing off steroids -Some hypoglycemia AM on 11/08/20, also BS slightly lower than normal at 83 on 11/09/20 -Stop HS ISS -c/w levemir dose, ISS AC, consistent carb diet, FS AC/HS Enterococcus urinary tract infection in the setting of recent gross hematuria with clemens catheter due to urine retention-treated -Previously on Vancomycin and IV ciprofloxacin. -ID was consulted, completed 3 days of cipro on 11/04/20 Right middle and right lower lobe aspiration vs HCAP- resolved -Afebrile, WBC wnl, all inflammatory markers improved. 95% on 2 L NC -No sputum culture available, Bcx neg -ST: speech therapy 5 times a week and to evaluate his aspiration to see if it's improving -HOB elevated when laying down -No longer on abx,- completed 5 days of Zosyn as inpatient with ID having been consulted then Essential tremors -Stable -C/w Primidone. Hypertension -C/w current treatment History of hiatal hernia / nonbleeding internal hemorrhoids / diverticulitis / multiple polyps in the ascending colon s/p biopsy. -C/w current diet -Denies abd pain DVT px -lovenox DISPOSITION: We will continue to follow him regularly while in ARU. Goal: home with family. VS, I&O, 24H, Fishbone Vital Signs/I&O Vital Signs Date Time Temp Pulse Resp B/P (MAP) Pulse Ox O2 Delivery O2 Flow Rate FiO2 11/09/20 08:28 83 160/68 11/09/20 05:45 98.6 19 97 NIPPV (BIPAP/CPAP) I&O- Last 24 Hours up to 6 AM 11/09/20 06:00 Intake Total 520 ml Balance 520 ml Laboratory Data 24H LABS Laboratory Tests 2 11/08/20 20:00: Bedside Glucose (Misc Panel) 134H 11/09/20 05:25: Bedside Glucose (Misc Panel) 83 11/09/20 06:30: Immature Granulocyte % (Auto) 0.7, Neutrophils (%) (Auto) 87.7H, Lymphocytes (%) (Auto) 5.2L, Monocytes (%) (Auto) 5.3, Eosinophils (%) (Auto) 1.0, Basophils (%) (Auto) 0.1, Neutrophils # (Auto) 10.9H, Lymphocytes # (Auto) 0.6L, Monocytes # (Auto) 0.7, Eosinophils # (Auto) 0.1, Basophils # (Auto) 0.0, Nucleated Red Blood Cells % (auto) 0.0, Anion Gap 3L, Glomerular Filtration Rate > 60.0, Calcium Level 8.6L, Total Bilirubin 0.3, Aspartate Amino Transf (AST/SGOT) 36, Alanine Aminotransferase (ALT/SGPT) 80H, Alkaline Phosphatase 111, Total Protein 5.3L, Albumin 2.5L, Albumin/Globulin Ratio 0.9 11/09/20 11:41: Bedside Glucose (Misc Panel) 196H CBC/BMP Laboratory Tests 11/09/20 06:30 Yessenia Cerna MD November 09, 2020 11:52
[2020-11-09 12:00] VITALS: BP 133/63
[2020-11-09] MEDS ORDERED: FUROSEMIDE 20 MG TAB PO ONE (12:00)
[2020-11-09 14:00] VITALS: BP 119/55
[2020-11-09 17:00] VITALS: BP 128/59
[2020-11-09 20:00] VITALS: BP 157/70
[2020-11-09] MEDS: ROSUVASTATIN 10 MG TAB (CRESTOR) PO SCH (20:43)
[2020-11-09] MEDS: SENNA 8.6 MG TAB (SENOKOT) PO SCH (20:43)
[2020-11-09] MEDS: TAMSULOSIN 0.4 MG CAP PO SCH (20:43)
[2020-11-10 05:28] VITALS: BP 163/72
[2020-11-10] MEDS: ISOSORBIDE DIN. (ISORDIL) 20 MG TAB PO SCH ×3 (05:42→18:25)
[2020-11-10] MEDS: COMBIVENT RESPIMAT 100-20MCG INHALER 4GM INH SCH ×3 (07:17→18:02)
[2020-11-10 07:50] VITALS: BP 160/67
[2020-11-10] MEDS: ENOXAPARIN 40MG/0.4ML SYRINGE (J1650 PER 10MG) SC SCH (07:56)
[2020-11-10] MEDS: LEVEMIR (INSULIN DETEMIR) 1 UNITS/0.01ML SC SCH (07:57)
[2020-11-10] MEDS: ASPIRIN 81MG ENTERIC TABLET PO SCH (07:58)
[2020-11-10] MEDS: HumaLOG INSULIN (NovoLOG) PER UNIT SC SCH ×3 (07:58→16:58)
[2020-11-10] MEDS: guaiFENesin 200 MG TAB PO SCH ×2 (07:58→21:43)
[2020-11-10] MEDS: FUROSEMIDE 40 MG TAB PO SCH (07:59)
[2020-11-10] MEDS: FERROUS SULFATE 325MG TAB PO SCH ×2 (07:59→21:43)
[2020-11-10] MEDS: allopurinoL 100 MG TAB PO SCH (07:59)
[2020-11-10] MEDS: DOCUSATE SODIUM 100MG CAPSULE PO SCH (08:00)
[2020-11-10] MEDS: POLYVINYL ALCOHOL OPHTH SOLN 15 ML(LIQUITEARS) OU SCH ×3 (08:01→21:43)
[2020-11-10] MEDS: REMEDY PHYTOPLEX Z-GUARD PASTE 113GM TUBE (FROM STOREROOM PRODUCT) TOP SCH ×3 (08:01→21:43)
[2020-11-10] MEDS: PRIMIDONE 25MG PER 1/2 TABLET PO SCH ×2 (08:06→21:42)
[2020-11-10] MEDS: OMEPRAZOLE 20 MG CAP PO SCH (08:06)
[2020-11-10] MEDS: LACTOBACILLUS ACIDOPHILUS CAP (BACID) PO SCH ×3 (08:06→21:43)
[2020-11-10] MEDS: SERTRALINE HCL 25 MG TABLET PO SCH (08:06)
[2020-11-10] MEDS: MULTIVITAMINS/MINERALS THERAP 1 TAB PO SCH (08:06)
[2020-11-10] MEDS: VITAMIN D 1,000 INTERNATIONAL UNITS TABLET PO SCH (08:06)
[2020-11-10 12:30] VITALS: BP 125/58
[2020-11-10 14:00] VITALS: BP 147/65
[2020-11-10 15:11] LABS: CLOSTRIDIUM DIFFICILE PCR POSITIVE (NEGATIVE)
--- NOTE | 2020-11-10 16:11 | IPNPDOC ---
Date Seen The patient was seen on 11/10/20. Progress Note SUBJECTIVE: I was notified about patient having multiple loose/liquid stools, foul smelling. Stooling started 11/09/20 per nursing and has had at least 6 today alone. VS stable, patient has a good appetite and has been eating well. C. diff positive- risk factors include prolonged hospital stay, recent use of abx on recent inpatient stay. Stopped all bowel meds, holding lasix and lifted 1800 cc fluid restriction while having incr stooling. Contact precautions placed, patient started on vancomycin 125 mg PO QID x 2 weeks. Volume status should be watched closely. Per nursing, Dr. Ritchei's made aware. STAT labs ordered. I have asked nursing to please call covering hospitalist if any abnormal labs are seen (i.e. elevated Cr,etc), as I am leaving at 5 PM today. She agreed. VS, I&O, 24H, Fishbone Vital Signs/I&O Vital Signs Date Time Temp Pulse Resp B/P (MAP) Pulse Ox O2 Delivery O2 Flow Rate FiO2 11/10/20 14:00 98.1 75 18 147/65 (92) 97 Room Air I&O- Last 24 Hours up to 6 AM 11/10/20 06:00 Intake Total 1020 ml Balance 1020 ml Laboratory Data 24H LABS Laboratory Tests 2 11/09/20 16:52: Bedside Glucose (Misc Panel) 153H 11/09/20 19:47: Bedside Glucose (Misc Panel) 175H 11/10/20 05:39: Bedside Glucose (Misc Panel) 133H 11/10/20 11:52: Bedside Glucose (Misc Panel) 143H 11/10/20 14:00: Clostridium difficile [id number] PRESUMPTIVE NEGATIVE, Clostridium difficile Toxin (PCR) POSITIVEYessenia Arnold MD November 10, 2020 16:11
[2020-11-10 16:44] LABS: HEMATOCRIT 27.1 % (42.0-52.0); MEAN CORPUSCULAR HEMOGLOBIN 31.9 pg (27.0-33.0); MEAN CORPUSCULAR HGB CONC 33.2 g/dl (32.0-36.5); MEAN CORPUSCULAR VOLUME 96.1 fl (80.0-96.0); PLATELET COUNT, AUTOMATED 236 10^3/uL (150-450); RED BLOOD COUNT 2.82 10^6/uL (4.30-6.10); WHITE BLOOD COUNT 15.1 10^3/uL (4.0-10.0)
[2020-11-10 17:12] LABS: ALBUMIN 2.3 GM/DL (3.2-5.2); ALT/SGPT 71 U/L (12-78); BILIRUBIN,TOTAL 0.4 MG/DL (0.2-1.0); BLOOD UREA NITROGEN 53 MG/DL (7-18); CALCIUM LEVEL 8.3 MG/DL (8.8-10.2); CARBON DIOXIDE LEVEL 25 MEQ/L (21-32); CHLORIDE LEVEL 106 MEQ/L (98-107); CREATININE FOR GFR 1.18 MG/DL (0.70-1.30); GLOMERULAR FILTRATION RATE > 60.0 (>42); GLUCOSE, FASTING 95 MG/DL (70-100); SODIUM LEVEL 137 MEQ/L (136-145); TOTAL PROTEIN 5.8 GM/DL (6.4-8.2)
[2020-11-10 18:00] VITALS: BP 159/67
[2020-11-10] MEDS: VANCOMYCIN ORAL SOL 250MG/5ML ORAL SYRINGE PO SCH ×2 (18:24→23:59)
[2020-11-10 20:30] VITALS: BP 141/65
[2020-11-10] MEDS: TAMSULOSIN 0.4 MG CAP PO SCH (21:42)
[2020-11-10] MEDS: ROSUVASTATIN 10 MG TAB (CRESTOR) PO SCH (21:43)
[2020-11-11] MEDS: VANCOMYCIN ORAL SOL 250MG/5ML ORAL SYRINGE PO SCH ×3 (06:39→17:31)
[2020-11-11 06:40] VITALS: BP 151/72
[2020-11-11] MEDS: ISOSORBIDE DIN. (ISORDIL) 20 MG TAB PO SCH ×4 (06:40→18:00)
[2020-11-11] MEDS: COMBIVENT RESPIMAT 100-20MCG INHALER 4GM INH SCH ×3 (07:22→19:37)
[2020-11-11] MEDS: HumaLOG INSULIN (NovoLOG) PER UNIT SC SCH ×3 (07:30→17:31)
[2020-11-11 07:54] LABS: HEMATOCRIT 27.1 % (42.0-52.0); HEMOGLOBIN 9.2 g/dl (13.5-17.5); MEAN CORPUSCULAR HEMOGLOBIN 32.3 pg (27.0-33.0); MEAN CORPUSCULAR HGB CONC 33.9 g/dl (32.0-36.5); MEAN CORPUSCULAR VOLUME 95.1 fl (80.0-96.0); PLATELET COUNT, AUTOMATED 256 10^3/uL (150-450); RED BLOOD COUNT 2.85 10^6/uL (4.30-6.10)
[2020-11-11 08:06] LABS: BLOOD UREA NITROGEN 46 MG/DL (7-18); CALCIUM LEVEL 7.7 MG/DL (8.8-10.2); CARBON DIOXIDE LEVEL 24 MEQ/L (21-32); CHLORIDE LEVEL 104 MEQ/L (98-107); GLOMERULAR FILTRATION RATE > 60.0 (>42); GLUCOSE, FASTING 84 MG/DL (70-100); POTASSIUM SERUM 3.8 MEQ/L (3.5-5.1); SODIUM LEVEL 135 MEQ/L (136-145)
[2020-11-11 08:49] LABS: ATYPICAL LYMPH 1 % (0-5); LYMPHOCYTES 2 % (16-44); METAMYELOCYTES 1 % (0-0); MONOCYTES 8 % (0-5); MYELOCYTES 1 % (0-0); NEUTROPHILS 66 % (28-66)
[2020-11-11 08:50] LABS: ANISOCYTOSIS 1+; PLATELET ESTIMATE NORMAL (NORMAL)
[2020-11-11] MEDS: LEVEMIR (INSULIN DETEMIR) 1 UNITS/0.01ML SC SCH (09:00)
[2020-11-11] MEDS: PRIMIDONE 25MG PER 1/2 TABLET PO SCH ×2 (09:38→22:26)
[2020-11-11] MEDS: FERROUS SULFATE 325MG TAB PO SCH ×2 (09:38→22:27)
[2020-11-11] MEDS: MULTIVITAMINS/MINERALS THERAP 1 TAB PO SCH (09:39)
[2020-11-11] MEDS: SERTRALINE HCL 25 MG TABLET PO SCH (09:39)
[2020-11-11] MEDS: LACTOBACILLUS ACIDOPHILUS CAP (BACID) PO SCH ×3 (09:39→22:27)
[2020-11-11] MEDS: OMEPRAZOLE 20 MG CAP PO SCH (09:39)
[2020-11-11] MEDS: guaiFENesin 200 MG TAB PO SCH ×2 (09:39→22:26)
[2020-11-11] MEDS: ASPIRIN 81MG ENTERIC TABLET PO SCH (09:39)
[2020-11-11] MEDS: VITAMIN D 1,000 INTERNATIONAL UNITS TABLET PO SCH (09:39)
[2020-11-11] MEDS: ENOXAPARIN 40MG/0.4ML SYRINGE (J1650 PER 10MG) SC SCH (09:39)
[2020-11-11] MEDS: POLYVINYL ALCOHOL OPHTH SOLN 15 ML(LIQUITEARS) OU SCH ×3 (09:40→22:27)
[2020-11-11] MEDS: allopurinoL 100 MG TAB PO SCH (09:40)
[2020-11-11] MEDS: REMEDY PHYTOPLEX Z-GUARD PASTE 113GM TUBE (FROM STOREROOM PRODUCT) TOP SCH ×3 (09:41→22:29)
[2020-11-11 14:00] VITALS: BP 109/53
[2020-11-11 20:30] VITALS: BP 149/68
[2020-11-11] MEDS: TAMSULOSIN 0.4 MG CAP PO SCH (22:26)
[2020-11-11] MEDS: ROSUVASTATIN 10 MG TAB (CRESTOR) PO SCH (22:27)
--- NOTE | 2020-11-11 23:33 | IPNPDOC ---
PM&R Progress Note DATE OF SERVICE: November 11, 2020 [employer] Work[employer] Progress Note Subjective: Patent stating his diarrhea is better today denies abdominal cramping. He feels more tired. REVIEW OF SYSTEMS: The following is a completed review of systems and has been reviewed. Review of systems otherwise unremarkable. PAIN: Patient self reports no pain EYES: No recent vision changes EARS, NOSE, & THROAT: No throat pain, or dysphagia, or rhinorrhea CARDIOVASCULAR: Denies chest pain or palpitations PULMONARY: Denies shortness of breath GASTROINTESTINAL: Denies constipation/diarrhea GENITOURINARY: +intermittent hematuria MUSCULOSKELETAL: generalized weakness NEUROLOGICAL: denies paresthesias HEMATOLOGICAL: +anemia SKIN: denies rash PSYCHIATRIC: Unremarkable All other review of systems found to be negative. PHYSICAL EXAMINATION: VITAL SIGNS: Please see below. GENERAL: Pleasant and cooperative. No acute distress. HEENT: PERRL. Extraocular movements intact. Clear conjunctiva CARDIOVASCULAR: Regular rate and rhythm. No murmurs, rubs, or gallops LUNGS: Clear to auscultation bilaterally. No wheezes. No rhonchi ABDOMEN: Soft, nontender, mildly distended. Positive bowel sounds. NEUROLOGICAL: Alert and oriented times three. Cranial nerves II through XII grossly intact. Sensation grossly intact +babinski bilat EXTREMITIES: 5\5 strength bilateral upper extremities. 5\5 strength right lower extremity. 5/5 strength in left lower extremity. +bilat LE edema SKIN: no sacrum ulcers ASSESSMENT:70-year-old M with past medical history of syringomyelia who presents status post worsening weakness in setting of possible polymyalgia rheumatica flair and encephalopathy due to PNA and UTI. PLAN: 1. Rehab- PT/OT- advance mobility and ADL, strengthen/stretch/maintain ROM all 4 limbs -will defer MOTORIZED [place] for now as cleared for regular diet prior to ARU on admission 2. Neuro- hx of cervicothoracic syrinx with worsening weakness in setting of possible polymyalgia rheumatic flair s/p IV solumedrol -f/u neurology and neuro-surgery, patient declining neurosurgical intervention at this time -tremor, c/u primidone 3. Cardiac- chronic diastolic CHF, daily weights, and fluid restrict, lasix recently d/c'd in setting of elevated BUN, will consult renal to help with fluid status -HTN c/u BP meds -recent Aflutter, off AC due to GI bleed and hematuria- on ASA 4. Resp- hx of LIANNA on CPAP, s/p course of Zosyn for possible HAP vs aspiration PNA- cleared by speech for regular diet, monitor for infection -c/u combivent and incentive spirometry 5. GI- s/p recent endoscopy +non-bleeding internal hemorrhoids, diverticulitis, and polyps removed- f/u GI outpatient -prilosec for ppx -+ C diff, on vancomycin, d/c'd omeprazole, patient clinically stable and diarrhea improving 6. Endo- hx fo DM c/u insulin and ISS, adjust prn 7. Psych- hx of depression c/u zoloft 8. DVT ppx- lovenox 9. - BPH c/u flomax, monitor for hematuria 10. Heme- iron deficiency anemia c/u iron supplements, recent blood loss due to hematuria and gi bleed- monitor, consider transfusion if Hgb <8 11. Dispo- TBD Allergies Coded Allergies: lisinopril (Verified Adverse Reaction, Intermediate, HYPOTENSION, 10/21/20) metformin (Verified Adverse Reaction, Intermediate, LOWERS KIDNEY FUNCTON, 10/21/20) finasteride (Verified Adverse Reaction, Unknown, DIZZINESS, 10/21/20) Vital Signs Vital Signs Date Time Temp Pulse Resp B/P (MAP) Pulse Ox O2 Delivery O2 Flow Rate FiO2 11/11/20 20:30 98.0 88 18 149/68 (95) 94 Room Air Laboratory Data CBC/BMP Laboratory Tests 11/11/20 07:13 Labs 24H Laboratory Tests 2 11/11/20 07:13: Neutrophils (%) (Auto) , Nucleated Red Blood Cells % (auto) 0.0, Neutrophils 66, Band Neutrophils 21H, Lymphocytes (Manual) 2L, Monocytes (Manual) 8H, Metamyelocytes 1H, Myelocytes 1H, Atypical Lymphocytes 1, Anisocytosis 1+, Platelet Estimate NORMAL, Bedside Glucose (Misc Panel) 88, Anion Gap 7L, Glomerular Filtration Rate > 60.0, Calcium Level 7.7L 11/11/20 11:31: Bedside Glucose (Misc Panel) 178H 11/11/20 17:23: Bedside Glucose (Misc Panel) 193H 11/11/20 20:07: Bedside Glucose (Misc Panel) 149H Current Medications Current Medications Current Medications Medications (Trade) Dose Ordered Sig/Imelda Route PRN Reason Start Time Stop Time Status Last Admin Dose Admin Acetaminophen (Tylenol Tab) 650 mg Q4HP PRN PO fever/MILD PAIN (PS 1-4) 11/08/20 13:35 Albuterol/ Ipratropium (Combivent Respimat 100-20mcg) 1 puff RTID INH 11/08/20 20:00 11/11/20 19:37 Allopurinol (Zyloprim) 100 mg DAILY PO 11/09/20 09:00 11/11/20 09:40 Amlodipine Besylate (Norvasc) 10 mg DAILY PO 11/09/20 09:00 11/11/20 09:39 Artificial Tears (Akwa Tears) 2 drop TID OU 11/08/20 16:00 11/11/20 22:27 Aspirin (Ecotrin) 81 mg DAILY PO 11/09/20 09:00 11/11/20 09:39 Bisacodyl (Dulcolax Tab) 5 mg DAILYPRN PRN PO CONSTIPATION 11/08/20 13:35 11/10/20 16:06 DC Dextrose (Dextrose 50%) 25 ml ASDIRECTED PRN IV SEE LABEL COMMENTS 11/08/20 13:35 Docusate Sodium (Colace) 100 mg BID PO 11/08/20 21:00 11/10/20 16:06 DC 11/09/20 20:43 Enoxaparin Sodium (Lovenox) 40 mg DAILY SC 11/09/20 09:00 11/11/20 09:39 Ferrous Sulfate (Ferrous Sulfate) 325 mg BID PO 11/08/20 21:00 11/11/20 22:27 Furosemide (Lasix) 40 mg DAILY PO 11/09/20 09:00 11/10/20 16:06 DC 11/10/20 07:59 Glucagon (Glucagon) 1 mg ASDIRECTED PRN SC SEE LABEL COMMENTS 11/08/20 13:35 Glucose (Glucose) 16 GM ASDIRECTED PRN PO SEE LABEL COMMENTS 11/08/20 13:35 Guaifenesin (Robitussin Tab) 400 mg BID PO 11/08/20 21:00 11/11/20 22:26 Home Med (Med Rec Complete!) ASDIRECTED XX 11/08/20 15:20 11/08/20 15:53 DC Insulin Detemir (Levemir Insulin) 25 units DAILY SC 11/09/20 09:00 11/10/20 07:57 Insulin Human Lispro (HumaLOG INSULIN) SEE PROTOCOL TABLE AC SC 11/08/20 17:30 11/11/20 17:31 Insulin Human Lispro (HumaLOG INSULIN) SEE PROTOCOL TABLE QHS SC 11/08/20 21:00 11/09/20 08:44 DC Isosorbide Dinitrate (Isordil) 20 mg Q6H PO 11/08/20 18:00 11/11/20 13:06 Lactobacillus Acidophilus (Bacid) 1 ea TID PO 11/08/20 16:00 11/11/20 22:27 Multivitamins (Theragram-M) 1 tab DAILY PO 11/09/20 09:00 11/11/20 09:39 Nitroglycerin (Nitrostat (1/ 150)) 0.4 mg Q5MP PRN SL CHEST PAIN 11/08/20 13:35 Omeprazole (PriLOSEC) 20 mg DAILY PO 11/09/20 09:00 11/11/20 11:03 DC 11/11/20 09:39 Primidone (Mysoline) 25 mg BID PO 11/08/20 21:00 11/11/20 22:26 Rosuvastatin Calcium (Crestor) 20 mg QHS PO 11/08/20 21:00 11/11/20 22:27 Senna (Senokot) 1 tab QHS PO 11/08/20 21:00 11/10/20 16:06 DC 11/09/20 20:43 Sertraline HCl (Zoloft) 25 mg QAM PO 11/09/20 09:00 11/11/20 09:39 Tamsulosin HCl (Flomax) 0.4 mg QHS PO 11/08/20 21:00 11/11/20 22:26 Vancomycin HCl (First-Vancomycin 50(Firvanq)- 250mg/5ml) 125 mg Q6H PO 11/10/20 18:00 11/24/20 17:59 11/11/20 17:31 Vitamin D (Vitamin D) 1,000 units DAILY PO 11/09/20 09:00 11/11/20 09:39 LV HEREDIA MD November 11, 2020 23:33
[2020-11-12] MEDS: ISOSORBIDE DIN. (ISORDIL) 20 MG TAB PO SCH ×4 (00:26→17:43)
[2020-11-12] MEDS: VANCOMYCIN ORAL SOL 250MG/5ML ORAL SYRINGE PO SCH ×4 (00:27→17:44)
[2020-11-12 06:00] VITALS: BP 143/66
[2020-11-12] MEDS: COMBIVENT RESPIMAT 100-20MCG INHALER 4GM INH SCH ×3 (07:47→19:47)
[2020-11-12] MEDS: LEVEMIR (INSULIN DETEMIR) 1 UNITS/0.01ML SC SCH (08:26)
[2020-11-12] MEDS: HumaLOG INSULIN (NovoLOG) PER UNIT SC SCH ×3 (08:26→17:44)
[2020-11-12] MEDS: FERROUS SULFATE 325MG TAB PO SCH ×2 (08:27→21:39)
[2020-11-12] MEDS: LACTOBACILLUS ACIDOPHILUS CAP (BACID) PO SCH ×3 (08:27→21:38)
[2020-11-12] MEDS: MULTIVITAMINS/MINERALS THERAP 1 TAB PO SCH (08:27)
[2020-11-12] MEDS: guaiFENesin 200 MG TAB PO SCH ×2 (08:27→21:38)
[2020-11-12] MEDS: VITAMIN D 1,000 INTERNATIONAL UNITS TABLET PO SCH (08:27)
[2020-11-12] MEDS: PRIMIDONE 25MG PER 1/2 TABLET PO SCH ×2 (08:27→21:38)
[2020-11-12] MEDS: ENOXAPARIN 40MG/0.4ML SYRINGE (J1650 PER 10MG) SC SCH (08:27)
[2020-11-12] MEDS: ASPIRIN 81MG ENTERIC TABLET PO SCH (08:27)
[2020-11-12] MEDS: SERTRALINE HCL 25 MG TABLET PO SCH (08:27)
[2020-11-12] MEDS: POLYVINYL ALCOHOL OPHTH SOLN 15 ML(LIQUITEARS) OU SCH ×3 (08:28→21:39)
[2020-11-12] MEDS: allopurinoL 100 MG TAB PO SCH (08:28)
[2020-11-12] MEDS: REMEDY PHYTOPLEX Z-GUARD PASTE 113GM TUBE (FROM STOREROOM PRODUCT) TOP SCH ×3 (08:28→21:39)
--- NOTE | 2020-11-12 10:42 | IPNPDOC ---
PM&R Progress Note DATE OF SERVICE: November 12, 2020 Garn[facility] Progress Note Subjective: Patent seen in his room stating his diarrhea continues to improve. REVIEW OF SYSTEMS: The following is a completed review of systems and has been reviewed. Review of systems otherwise unremarkable. PAIN: Patient self reports no pain EYES: No recent vision changes EARS, NOSE, & THROAT: No throat pain, or dysphagia, or rhinorrhea CARDIOVASCULAR: Denies chest pain or palpitations PULMONARY: Denies shortness of breath GASTROINTESTINAL: Denies constipation/diarrhea GENITOURINARY: +intermittent hematuria MUSCULOSKELETAL: generalized weakness NEUROLOGICAL: denies paresthesias HEMATOLOGICAL: +anemia SKIN: denies rash PSYCHIATRIC: Unremarkable All other review of systems found to be negative. PHYSICAL EXAMINATION: VITAL SIGNS: Please see below. GENERAL: Pleasant and cooperative. No acute distress. HEENT: PERRL. Extraocular movements intact. Clear conjunctiva CARDIOVASCULAR: Regular rate and rhythm. No murmurs, rubs, or gallops LUNGS: Clear to auscultation bilaterally. No wheezes. No rhonchi ABDOMEN: Soft, nontender, mildly distended. Positive bowel sounds. NEUROLOGICAL: Alert and oriented times three. Cranial nerves II through XII grossly intact. Sensation grossly intact +babinski bilat EXTREMITIES: 5\5 strength bilateral upper extremities. 5\5 strength right lower extremity. 5/5 strength in left lower extremity. +bilat LE edema SKIN: no sacrum ulcers ASSESSMENT:70-year-old M with past medical history of syringomyelia who presents status post worsening weakness in setting of possible polymyalgia rheumatica flair and encephalopathy due to PNA and UTI. PLAN: 1. Rehab- PT/OT- advance mobility and ADL, strengthen/stretch/maintain ROM all 4 limbs -will defer OUTREACH ANALYST for now as cleared for regular diet prior to ARU on admission 2. Neuro- hx of cervicothoracic syrinx with worsening weakness in setting of possible polymyalgia rheumatic flair s/p IV solumedrol -f/u neurology and neuro-surgery, patient declining neurosurgical intervention at this time -tremor, c/u primidone 3. Cardiac- chronic diastolic CHF, daily weights, and fluid restrict, lasix recently d/c'd in setting of elevated BUN, renal consulted to help with fluid status -HTN c/u BP meds -recent Aflutter, off AC due to GI bleed and hematuria- on ASA 4. Resp- hx of LIANNA on CPAP, s/p course of Zosyn for possible HAP vs aspiration PNA- cleared by speech for regular diet, monitor for infection -c/u combivent and incentive spirometry 5. GI- s/p recent endoscopy +non-bleeding internal hemorrhoids, diverticulitis, and polyps removed- f/u GI outpatient -+ C diff, on vancomycin, d/c'd omeprazole, patient clinically stable and diarrhea improving 6. Endo- hx fo DM c/u insulin and ISS, adjust prn 7. Psych- hx of depression c/u zoloft 8. DVT ppx- lovenox 9. - BPH c/u flomax, monitor for hematuria 10. Heme- iron deficiency anemia c/u iron supplements, recent blood loss due to hematuria and gi bleed- monitor, consider transfusion if Hgb <8 11. Dispo- 11-28-20 to home, progressing towards goals Allergies Coded Allergies: lisinopril (Verified Adverse Reaction, Intermediate, HYPOTENSION, 10/21/20) metformin (Verified Adverse Reaction, Intermediate, LOWERS KIDNEY FUNCTON, 10/21/20) finasteride (Verified Adverse Reaction, Unknown, DIZZINESS, 10/21/20) Vital Signs Vital Signs Date Time Temp Pulse Resp B/P (MAP) Pulse Ox O2 Delivery O2 Flow Rate FiO2 11/12/20 08:27 71 135/65 11/12/20 06:00 97.7 18 98 Room Air Laboratory Data Labs 24H Laboratory Tests 2 11/11/20 11:31: Bedside Glucose (Misc Panel) 178H 11/11/20 17:23: Bedside Glucose (Misc Panel) 193H 11/11/20 20:07: Bedside Glucose (Misc Panel) 149H 11/12/20 06:21: Bedside Glucose (Misc Panel) 125H 11/12/20 06:45: Bedside Glucose (Misc Panel) 129H Current Medications Current Medications Current Medications Medications (Trade) Dose Ordered Sig/Imelda Route PRN Reason Start Time Stop Time Status Last Admin Dose Admin Acetaminophen (Tylenol Tab) 650 mg Q4HP PRN PO fever/MILD PAIN (PS 1-4) 11/08/20 13:35 Albuterol/ Ipratropium (Combivent Respimat 100-20mcg) 1 puff RTID INH 11/08/20 20:00 11/12/20 07:47 Allopurinol (Zyloprim) 100 mg DAILY PO 11/09/20 09:00 11/12/20 08:28 Amlodipine Besylate (Norvasc) 10 mg DAILY PO 11/09/20 09:00 11/12/20 08:27 Artificial Tears (Akwa Tears) 2 drop TID OU 11/08/20 16:00 11/11/20 22:27 Aspirin (Ecotrin) 81 mg DAILY PO 11/09/20 09:00 11/12/20 08:27 Bisacodyl (Dulcolax Tab) 5 mg DAILYPRN PRN PO CONSTIPATION 11/08/20 13:35 11/10/20 16:06 DC Dextrose (Dextrose 50%) 25 ml ASDIRECTED PRN IV SEE LABEL COMMENTS 11/08/20 13:35 Docusate Sodium (Colace) 100 mg BID PO 11/08/20 21:00 11/10/20 16:06 DC 11/09/20 20:43 Enoxaparin Sodium (Lovenox) 40 mg DAILY SC 11/09/20 09:00 11/12/20 08:27 Ferrous Sulfate (Ferrous Sulfate) 325 mg BID PO 11/08/20 21:00 11/12/20 08:27 Furosemide (Lasix) 40 mg DAILY PO 11/09/20 09:00 11/10/20 16:06 DC 11/10/20 07:59 Glucagon (Glucagon) 1 mg ASDIRECTED PRN SC SEE LABEL COMMENTS 11/08/20 13:35 Glucose (Glucose) 16 GM ASDIRECTED PRN PO SEE LABEL COMMENTS 11/08/20 13:35 Guaifenesin (Robitussin Tab) 400 mg BID PO 11/08/20 21:00 11/12/20 08:27 Home Med (Med Rec Complete!) ASDIRECTED XX 11/08/20 15:20 11/08/20 15:53 DC Insulin Detemir (Levemir Insulin) 25 units DAILY SC 11/09/20 09:00 11/12/20 08:26 Insulin Human Lispro (HumaLOG INSULIN) SEE PROTOCOL TABLE AC SC 11/08/20 17:30 11/12/20 08:26 Insulin Human Lispro (HumaLOG INSULIN) SEE PROTOCOL TABLE QHS SC 11/08/20 21:00 11/09/20 08:44 DC Isosorbide Dinitrate (Isordil) 20 mg Q6H PO 11/08/20 18:00 11/12/20 06:02 Lactobacillus Acidophilus (Bacid) 1 ea TID PO 11/08/20 16:00 11/12/20 08:27 Multivitamins (Theragram-M) 1 tab DAILY PO 11/09/20 09:00 11/12/20 08:27 Nitroglycerin (Nitrostat (1/ 150)) 0.4 mg Q5MP PRN SL CHEST PAIN 11/08/20 13:35 Omeprazole (PriLOSEC) 20 mg DAILY PO 11/09/20 09:00 11/11/20 11:03 DC 11/11/20 09:39 Primidone (Mysoline) 25 mg BID PO 11/08/20 21:00 11/12/20 08:27 Rosuvastatin Calcium (Crestor) 20 mg QHS PO 11/08/20 21:00 11/11/20 22:27 Senna (Senokot) 1 tab QHS PO 11/08/20 21:00 11/10/20 16:06 DC 11/09/20 20:43 Sertraline HCl (Zoloft) 25 mg QAM PO 11/09/20 09:00 11/12/20 08:27 Tamsulosin HCl (Flomax) 0.4 mg QHS PO 11/08/20 21:00 11/11/20 22:26 Vancomycin HCl (First-Vancomycin 50(Firvanq)- 250mg/5ml) 125 mg Q6H PO 11/10/20 18:00 11/24/20 17:59 11/12/20 06:01 Vitamin D (Vitamin D) 1,000 units DAILY PO 11/09/20 09:00 11/12/20 08:27 LV HEREDIA MD November 12, 2020 10:42
[2020-11-12 14:00] VITALS: BP 128/60
--- NOTE | 2020-11-12 17:37 | CR ---
NEPHROLOGY CONSULTATION DATE: 11/12/2020 REQUESTING CLINICIAN: Valeria Lawrence MD. REASON FOR CONSULTATION: To assist in the management of congestive heart failure and chronic kidney disease. HISTORY OF PRESENT ILLNESS: Mr. Vilchis is a 70-year-old gentleman with a significant history for cervical-thoracic syringomyelia, status post shunt in 1982, history of Chiari I malformation, history of diabetes complicated with peripheral polyneuropathy, history of congestive heart failure, depression, BPH, obstructive sleep apnea and hypertension. He was admitted to [facility] due to generalized weakness and had an extensive work-up done including brain and cervical-thoracic MRIs. He was felt to have possible polymyalgia rheumatica and was treated with steroids. His hospital stay was complicated with atrial flutter and hematuria requiring blood transfusions. His chronic anticoagulation has been now stopped. He was also reported to have a GI bleed during his stay here and was found to have diverticulitis on colonoscopy and multiple polyps. Patient was encephalopathic during his stay on the medical floor and was treated for a UTI and pneumonia. He is now admitted to the Acute Rehab Floor. Currently his diuretics are on-hold. Patient has also been diagnosed with C. diff colitis as reported by nursing staff on my arrival. PAST MEDICAL HISTORY: Significant for: 1. Extensive history for cervical-thoracic syringomyelia status post shunt placement in 1982. 2. History of Chiari I malformation. 3. Type-2 diabetes complicated with peripheral polyneuropathy. 4. History of depression. 5. History of gastroesophageal reflux disease. 6. Hypertension. 7. History of BPH. 8. History of obstructive sleep apnea. 9. History of congestive heart failure. 10. Recent history for pneumonia. 11. Recent history for UTI. 12. Recent history of hematuria. 13. Recent history of atrial flutter. 14. Recent history of GI bleed. 15. History of mild chronic kidney disease. MEDICATIONS IN THE HOSPITAL: Include: 1. Oral vancomycin 125 mg q6h. 2. Allopurinol 100 mg daily. 3. Multivitamin 1 tablet daily. 4. Zoloft 25 mg daily. 5. Vitamin D 1000 units daily. 6. Levemir insulin 25 units daily. 7. Aspirin 81 mg daily. 8. Amlodipine 10 mg daily. 9. Lovenox 40 mg subcu daily. 10. Crestor 20 mg daily. 11. Ferrous sulfate 325 mg twice a day. 12. Flomax 04 mg at bedtime. 13. Primidone 25 mg twice a day. 14. Combivent inhaler three times a day. 15. Isordil 25 mg q6h. 16. Humalog insulin per sliding scale. 17. Bacid 1 tablet three times a day. 18. Tylenol as needed for pain. 19. Nitroglycerin as needed for chest pain. ALLERGIES: 1. METFORMIN. 2. LISINOPRIL. 3. FINASTERIDE. FAMILY HISTORY: Noncontributory for this admission. PERSONAL AND SOCIAL HISTORY: He is a former smoker with no illicit drug use and occasional alcohol use. REVIEW OF SYSTEMS: Patient has been recently diagnosed with C. diff colitis. He was initially admitted with generalized weakness and developed multiple complications during his hospital stay. No fever or chills reported at this point. He has been treated for pneumonia and UTI recently. Head and neck: Without any trauma. Nose and throat: Unremarkable. Cardiovascular system: Significant for congestive heart failure history. At present no dyspnea or leg edema reported. Respiratory system: Significant for recent treatment of pneumonia. GI system: Significant for C. diff colitis and the history of GI bleed during this recent hospitalization. system: Significant for hematuria. Musculoskeletal system: Significant for generalized weakness and history of deconditioning. No leg edema reported. Also significant for history of gout without any recent acute flares. Neurological system: Significant for history of syringomyelia, cervical and thoracic area. Hematological system: Significant for anticoagulation which is currently on-hold. Skin: Negative for rash or ulcers. PHYSICAL EXAMINATION: Temperature 97.7 degrees Fahrenheit, heart rate 78 per minute and right side 18 per minute. Blood pressure 135/65 mmHg and oxygen saturation 98% on room air. Head: Atraumatic. Neck: Supple and JVD not abnormally elevated. Heart: Sounds are irregular in rhythm. Lungs: With diminished breath sounds at bases. Abdomen: Obese and nontender, bowel sounds are normal. Extremities: Without any cyanosis or clubbing. There is only trace of lower extremity edema. LABORATORY DATA: WBC count 14, hemoglobin 9.2, hematocrit 27.1, platelet count 256. Sodium 135, potassium 3.8, CO2 24, BUN 46, creatinine 1.20, glucose 84, calcium 7.7. Lactic acid level was 0.7 on November 10. Total protein was 5.8 and albumin 2.3. PROBLEMS AND PLAN: 1. Congestive heart failure: At present his volume status clinically seems well compensated and he is oxygenating at 98% on room air. I would recommend to keep him off diuretic for now and we will continue to monitor closely. Hew also has slightly disproportionately elevated BUN which is suggestive of either GI bleed or prerenal azotemia. 2. Acute on chronic kidney disease: Kidney function seems to be mostly stable with creatinine 1.1-1.2 mg range. We will continue to monitor closely without any intervention at present. His medications are reviewed and they are all appropriate without any nephrotoxic medications. He remains at risk for worsening kidney function due to ongoing diarrhea caused by C. diff colitis so we will keep him off diuretic for now. 3. History of gout: Currently asymptomatic and remains on allopurinol. Uric acid level will be checked with his next blood work. 4. Hypertension: Blood pressure seems to be well controlled on current medications and he is off diuretics for now. 5. C. diff colitis: Patient is currently on oral vancomycin for colitis. CODE STATUS: Patient has a DNR status. Thank you for involving me in the care of Mr. Vilchis. I will follow him along with you.
[2020-11-12] MEDS: ROSUVASTATIN 10 MG TAB (CRESTOR) PO SCH (21:39)
[2020-11-12] MEDS: TAMSULOSIN 0.4 MG CAP PO SCH (21:39)
[2020-11-12 22:00] VITALS: BP 130/63
[2020-11-13] MEDS: ISOSORBIDE DIN. (ISORDIL) 20 MG TAB PO SCH ×5 (00:01→23:40)
[2020-11-13] MEDS: VANCOMYCIN ORAL SOL 250MG/5ML ORAL SYRINGE PO SCH ×5 (06:26→23:36)
[2020-11-13 06:41] VITALS: BP 140/63
[2020-11-13] MEDS: COMBIVENT RESPIMAT 100-20MCG INHALER 4GM INH SCH ×3 (07:06→19:48)
[2020-11-13] MEDS: HumaLOG INSULIN (NovoLOG) PER UNIT SC SCH ×3 (07:30→16:55)
[2020-11-13] MEDS: LEVEMIR (INSULIN DETEMIR) 1 UNITS/0.01ML SC SCH (09:00)
[2020-11-13] MEDS: FERROUS SULFATE 325MG TAB PO SCH ×2 (09:20→21:36)
[2020-11-13] MEDS: ASPIRIN 81MG ENTERIC TABLET PO SCH (09:20)
[2020-11-13] MEDS: allopurinoL 100 MG TAB PO SCH (09:20)
[2020-11-13] MEDS: MULTIVITAMINS/MINERALS THERAP 1 TAB PO SCH (09:20)
[2020-11-13] MEDS: LACTOBACILLUS ACIDOPHILUS CAP (BACID) PO SCH ×2 (09:20→21:36)
[2020-11-13] MEDS: guaiFENesin 200 MG TAB PO SCH ×2 (09:20→21:35)
[2020-11-13] MEDS: REMEDY PHYTOPLEX Z-GUARD PASTE 113GM TUBE (FROM STOREROOM PRODUCT) TOP SCH ×3 (09:21→21:37)
[2020-11-13] MEDS: ENOXAPARIN 40MG/0.4ML SYRINGE (J1650 PER 10MG) SC SCH (09:21)
[2020-11-13] MEDS: VITAMIN D 1,000 INTERNATIONAL UNITS TABLET PO SCH (09:21)
[2020-11-13] MEDS: POLYVINYL ALCOHOL OPHTH SOLN 15 ML(LIQUITEARS) OU SCH ×3 (09:22→21:37)
[2020-11-13] MEDS: PRIMIDONE 25MG PER 1/2 TABLET PO SCH ×2 (09:31→21:36)
--- NOTE | 2020-11-13 09:42 | IPNPDOC ---
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 ALLERGIES: See Below MEDICATIONS: Reviewed, see below. OBJECTIVE: VITAL SIGNS: Please see below. PHYSICAL EXAMINATION: GENERAL: [Cachectic, well developed, sitting up in bed, no acute distress]. HEENT: [Normocephalic, atraumatic]. [No facial droop]. [Poor dentition, missing teeth. PERRL, EOMI]. CARDIOVASCULAR: [S1, S2, irregular rate]. [No lower limb edema or calf tenderness]. LUNGS: [Decreased breath sounds, coarse throughout]. ABDOMEN: [Soft, nontender, nondistended. Normoactive bowel sounds throughout]. MUSCULOSKELETAL: MMT: /5 strength proximally bilateral shoulder abduction, forward flexion and bilateral hip flexion. /5 strength bilateral elbow flexion, knee flexion, /5 bilateral elbow extension and knee extension. /5 banking analyst, dorsiflexion, plantar flexion. NEUROLOGICAL: [Alert and oriented times three]. [Answers all question appropriately]. SKIN: . LABORATORY DATA: Reviewed. Please see below. MICROBIOLOGY: Please see below. IMAGING: ASSESSMENT AND PLAN: 1. . 2. . 3. . TIME SPENT: Chart Review, examination and documentation minutes. Allergies Coded Allergies: lisinopril (Verified Adverse Reaction, Intermediate, HYPOTENSION, 10/21/20) metformin (Verified Adverse Reaction, Intermediate, LOWERS KIDNEY FUNCTON, 10/21/20) finasteride (Verified Adverse Reaction, Unknown, DIZZINESS, 10/21/20) Vital Signs Vital Signs Date Time Temp Pulse Resp B/P (MAP) Pulse Ox O2 Delivery O2 Flow Rate FiO2 11/13/20 09:21 67 140/63 11/13/20 06:41 97.3 18 98 Room Air Laboratory Data Labs 24H Laboratory Tests 2 11/12/20 11:34: Bedside Glucose (Misc Panel) 225H 11/12/20 16:33: Bedside Glucose (Misc Panel) 101 11/12/20 20:28: Bedside Glucose (Misc Panel) 151H 11/13/20 07:26: Bedside Glucose (Misc Panel) 97 Current Medications Current Medications Current Medications Medications (Trade) Dose Ordered Sig/Imleda Route PRN Reason Start Time Stop Time Status Last Admin Dose Admin Acetaminophen (Tylenol Tab) 650 mg Q4HP PRN PO fever/MILD PAIN (PS 1-4) 11/08/20 13:35 Albuterol/ Ipratropium (Combivent Respimat 100-20mcg) 1 puff RTID INH 11/08/20 20:00 11/13/20 07:06 Allopurinol (Zyloprim) 100 mg DAILY PO 11/09/20 09:00 11/13/20 09:20 Amlodipine Besylate (Norvasc) 10 mg DAILY PO 11/09/20 09:00 11/13/20 09:21 Artificial Tears (Akwa Tears) 2 drop TID OU 11/08/20 16:00 11/13/20 09:22 Aspirin (Ecotrin) 81 mg DAILY PO 11/09/20 09:00 11/13/20 09:20 Bisacodyl (Dulcolax Tab) 5 mg DAILYPRN PRN PO CONSTIPATION 11/08/20 13:35 11/10/20 16:06 DC Dextrose (Dextrose 50%) 25 ml ASDIRECTED PRN IV SEE LABEL COMMENTS 11/08/20 13:35 Docusate Sodium (Colace) 100 mg BID PO 11/08/20 21:00 11/10/20 16:06 DC 11/09/20 20:43 Enoxaparin Sodium (Lovenox) 40 mg DAILY SC 11/09/20 09:00 11/13/20 09:21 Ferrous Sulfate (Ferrous Sulfate) 325 mg BID PO 11/08/20 21:00 11/13/20 09:20 Furosemide (Lasix) 40 mg DAILY PO 11/09/20 09:00 11/10/20 16:06 DC 11/10/20 07:59 Glucagon (Glucagon) 1 mg ASDIRECTED PRN SC SEE LABEL COMMENTS 11/08/20 13:35 Glucose (Glucose) 16 GM ASDIRECTED PRN PO SEE LABEL COMMENTS 11/08/20 13:35 Guaifenesin (Robitussin Tab) 400 mg BID PO 11/08/20 21:00 11/13/20 09:20 Home Med (Med Rec Complete!) ASDIRECTED XX 11/08/20 15:20 11/08/20 15:53 DC Insulin Detemir (Levemir Insulin) 25 units DAILY SC 11/09/20 09:00 11/12/20 08:26 Insulin Human Lispro (HumaLOG INSULIN) SEE PROTOCOL TABLE AC SC 11/08/20 17:30 11/12/20 17:44 Insulin Human Lispro (HumaLOG INSULIN) SEE PROTOCOL TABLE QHS SC 11/08/20 21:00 11/09/20 08:44 DC Isosorbide Dinitrate (Isordil) 20 mg Q6H PO 11/08/20 18:00 11/13/20 06:25 Lactobacillus Acidophilus (Bacid) 1 ea TID PO 11/08/20 16:00 11/13/20 09:20 Multivitamins (Theragram-M) 1 tab DAILY PO 11/09/20 09:00 11/13/20 09:20 Nitroglycerin (Nitrostat (1/ 150)) 0.4 mg Q5MP PRN SL CHEST PAIN 11/08/20 13:35 Omeprazole (PriLOSEC) 20 mg DAILY PO 11/09/20 09:00 11/11/20 11:03 DC 11/11/20 09:39 Primidone (Mysoline) 25 mg BID PO 11/08/20 21:00 11/13/20 09:31 Rosuvastatin Calcium (Crestor) 20 mg QHS PO 11/08/20 21:00 11/12/20 21:39 Senna (Senokot) 1 tab QHS PO 11/08/20 21:00 11/10/20 16:06 DC 11/09/20 20:43 Sertraline HCl (Zoloft) 25 mg QAM PO 11/09/20 09:00 11/12/20 08:27 Tamsulosin HCl (Flomax) 0.4 mg QHS PO 11/08/20 21:00 11/12/20 21:39 Vancomycin HCl (First-Vancomycin 50(Firvanq)- 250mg/5ml) 125 mg Q6H PO 11/10/20 18:00 11/24/20 17:59 11/13/20 06:26 Vitamin D (Vitamin D) 1,000 units DAILY PO 11/09/20 09:00 11/13/20 09:21 LV HEREDIA MD November 13, 2020 09:42
[2020-11-13 11:14] LABS: HEMATOCRIT 25.5 % (42.0-52.0); HEMOGLOBIN 8.8 g/dl (13.5-17.5); MEAN CORPUSCULAR HEMOGLOBIN 32.1 pg (27.0-33.0); MEAN CORPUSCULAR HGB CONC 34.5 g/dl (32.0-36.5); MEAN CORPUSCULAR VOLUME 93.1 fl (80.0-96.0); PLATELET COUNT, AUTOMATED 266 10^3/uL (150-450); RED BLOOD COUNT 2.74 10^6/uL (4.30-6.10)
[2020-11-13] MEDS: SERTRALINE HCL 25 MG TABLET PO SCH (11:14)
[2020-11-13 11:33] LABS: CALCIUM LEVEL 7.5 MG/DL (8.8-10.2); CREATININE FOR GFR 1.56 MG/DL (0.70-1.30); GLOMERULAR FILTRATION RATE 47.1 (>42); POTASSIUM SERUM 3.6 MEQ/L (3.5-5.1)
[2020-11-13 11:43] LABS: ATYPICAL LYMPH 3 % (0-5); LYMPHOCYTES 1 % (16-44); MONOCYTES 6 % (0-5); NEUTROPHILS 77 % (28-66); PLATELET ESTIMATE NORMAL (NORMAL); TOXIC VACUOLATION 1+
[2020-11-13 11:44] LABS: ANISOCYTOSIS 1+; HYPOCHROMASIA 1+; POIKILOCYTOSIS 1+; TOXIC GRANULATION 2+
[2020-11-13 14:00] VITALS: BP 140/63
[2020-11-13] MEDS: hydrOXYzine 10 MG TAB PO SCH ×2 (15:10→21:36)
[2020-11-13] MEDS ORDERED: FUROSEMIDE 40 MG TAB PO ONE (19:55)
[2020-11-13 20:00] VITALS: BP 145/67
[2020-11-13] MEDS: POTASSIUM CHLORIDE 10 MEQ SR TABLET PO SCH (21:35)
[2020-11-13] MEDS: TAMSULOSIN 0.4 MG CAP PO SCH (21:36)
[2020-11-13] MEDS: ROSUVASTATIN 10 MG TAB (CRESTOR) PO SCH (21:36)
[2020-11-14 05:10] VITALS: BP 165/72
[2020-11-14] MEDS: VANCOMYCIN ORAL SOL 250MG/5ML ORAL SYRINGE PO SCH ×4 (06:06→23:57)
[2020-11-14] MEDS: ISOSORBIDE DIN. (ISORDIL) 20 MG TAB PO SCH ×4 (06:06→23:57)
[2020-11-14] MEDS: COMBIVENT RESPIMAT 100-20MCG INHALER 4GM INH SCH ×3 (07:27→19:40)
[2020-11-14] MEDS: ASPIRIN 81MG ENTERIC TABLET PO SCH (07:48)
[2020-11-14] MEDS: HumaLOG INSULIN (NovoLOG) PER UNIT SC SCH ×3 (07:48→17:22)
[2020-11-14] MEDS: PRIMIDONE 25MG PER 1/2 TABLET PO SCH ×2 (07:48→21:10)
[2020-11-14] MEDS: SERTRALINE HCL 25 MG TABLET PO SCH (07:48)
[2020-11-14] MEDS: LACTOBACILLUS ACIDOPHILUS CAP (BACID) PO SCH ×2 (07:48→21:10)
[2020-11-14] MEDS: FUROSEMIDE 40 MG TAB PO SCH ×2 (07:49→17:22)
[2020-11-14] MEDS: VITAMIN D 1,000 INTERNATIONAL UNITS TABLET PO SCH (07:49)
[2020-11-14] MEDS: POTASSIUM CHLORIDE 10 MEQ SR TABLET PO SCH ×2 (07:49→21:10)
[2020-11-14] MEDS: MULTIVITAMINS/MINERALS THERAP 1 TAB PO SCH (07:49)
[2020-11-14] MEDS: FERROUS SULFATE 325MG TAB PO SCH ×2 (07:49→21:09)
[2020-11-14] MEDS: allopurinoL 100 MG TAB PO SCH (07:50)
[2020-11-14] MEDS: amLODIPine 5 MG TAB PO SCH (07:50)
[2020-11-14] MEDS: hydrOXYzine 10 MG TAB PO SCH ×2 (07:54→21:10)
[2020-11-14] MEDS: LEVEMIR (INSULIN DETEMIR) 1 UNITS/0.01ML SC SCH (07:55)
[2020-11-14] MEDS: ENOXAPARIN 40MG/0.4ML SYRINGE (J1650 PER 10MG) SC SCH (07:55)
[2020-11-14] MEDS: guaiFENesin 200 MG TAB PO SCH ×2 (07:55→21:10)
[2020-11-14] MEDS: POLYVINYL ALCOHOL OPHTH SOLN 15 ML(LIQUITEARS) OU SCH ×3 (07:56→21:11)
[2020-11-14] MEDS: REMEDY PHYTOPLEX Z-GUARD PASTE 113GM TUBE (FROM STOREROOM PRODUCT) TOP SCH ×3 (07:56→21:10)
--- NOTE | 2020-11-14 08:58 | IPN ---
PROGRESS NOTE DATE: 11/13/2020 SUBJECTIVE: Mr. Vilchis is seen this morning on his bedside. He is sitting in the chair at the time of my visit. He has dyspnea on exertion, but denies any chest pain. He has no fever or chills. He has diarrhea and is currently being treated for C. diff colitis. PHYSICAL EXAMINATION: VITALS: Temperature 97.3 degrees Fahrenheit, heart rate 68 per minute, respiratory rate 18 per minute, blood pressure 140/63 mmHg and oxygen saturation 97% on room air. HEENT: Head is atraumatic. Neck supple and JVD difficult to be assessed. LUNGS: With slightly diminished breath sounds at bases. HEART: Sounds are regular. ABDOMEN: Soft, obese and nontender. Bowel sounds are normal. EXTREMITIES: Without any cyanosis or clubbing. He has mild edema on his right hand and also bilateral lower extremity edema noticed. NEUROLOGIC: He is awake, alert and oriented x3. LABORATORY DATA: Today's labs show WBC 9.0, hemoglobin 8.8, hematocrit 25.5, platelets 266,000. Sodium 131, potassium 3.6, CO2 24, BUN 59, creatinine 1.56, glucose 202 and calcium 7.5. Uric acid level is 7.0. PROBLEMS: 1. Acute kidney injury superimposed on chronic kidney disease: Kidney function is slightly worse compared to two day's ago. He has not received any diuretic and his volume status is still decompensated. I do not feel that he is volume depleted. I am going to advise nursing staff to do bladder scan for any possible urinary retention. We will check his renal profile again tomorrow. 2. Congestive heart failure: His volume status is decompensated and I am going to start with Furosemide 40 mg today and then 40 mg b.i.d. We will continue to monitor his renal function closely. His diuretics have been on hold in view of diarrhea and risk for dehydration. 3. Hypertension: Blood pressure is controlled. I am starting diuretic, so I will cut down his Amlodipine dose to 5 mg daily particularly in view of lower extremity edema. We will continue to monitor his blood pressure closely and make further adjustments if needed. He is also receiving Isordil 20 mg every 6 hours. 4. Hypokalemia: His potassium level is 3.6 and he is at risk for worsening hypokalemia with diuretic use. I will start with potassium chloride 10 mEq b.i.d. and will recheck his electrolytes. 5. Diarrhea: Patient is being treated for C. diff colitis. He remains on oral Vancomycin.
--- NOTE | 2020-11-14 11:18 | IPNPDOC ---
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 He would like to start back on atarax for anxiety. REVIEW OF SYSTEMS: The following is a completed review of systems and has been reviewed. Review of systems otherwise unremarkable. PAIN: Patient self reports no pain EYES: No recent vision changes EARS, NOSE, & THROAT: No throat pain, or dysphagia, or rhinorrhea CARDIOVASCULAR: Denies chest pain or palpitations PULMONARY: Denies shortness of breath GASTROINTESTINAL: Denies constipation/diarrhea GENITOURINARY: +intermittent hematuria MUSCULOSKELETAL: generalized weakness NEUROLOGICAL: denies paresthesias HEMATOLOGICAL: +anemia SKIN: denies rash PSYCHIATRIC: Unremarkable All other review of systems found to be negative. PHYSICAL EXAMINATION: VITAL SIGNS: Please see below. GENERAL: Pleasant and cooperative. No acute distress. HEENT: PERRL. Extraocular movements intact. Clear conjunctiva CARDIOVASCULAR: Regular rate and rhythm. No murmurs, rubs, or gallops LUNGS: Clear to auscultation bilaterally. No wheezes. No rhonchi ABDOMEN: Soft, nontender, mildly distended. Positive bowel sounds. NEUROLOGICAL: Alert and oriented times three. Cranial nerves II through XII grossly intact. Sensation grossly intact +babinski bilat EXTREMITIES: 5\5 strength bilateral upper extremities. 5\5 strength right lower extremity. 5/5 strength in left lower extremity. +bilat LE edema SKIN: no sacrum ulcers ASSESSMENT:70-year-old M with past medical history of syringomyelia who presents status post worsening weakness in setting of possible polymyalgia rheumatica flair and encephalopathy due to PNA and UTI. PLAN: 1. 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 Neuro- hx of cervicothoracic syrinx with worsening weakness in setting of possible polymyalgia rheumatic flair s/p IV solumedrol -f/u neurology and neuro-surgery, patient declining neurosurgical intervention at this time -tremor, c/u primidone 3. Cardiac- chronic diastolic CHF, daily weights, and fluid restrict, lasix r ecently d/c'd in setting of elevated BUN, renal consulted to help with fluid status -HTN c/u BP meds -recent Aflutter, off AC due to GI bleed and hematuria- on ASA 4. Resp- hx of LIANNA on CPAP, s/p course of Zosyn for possible HAP vs aspiration PNA- cleared by speech for regular diet, monitor for infection -c/u combivent and incentive spirometry 5. GI- s/p recent endoscopy +non-bleeding internal hemorrhoids, diverticulitis, and polyps removed- f/u GI outpatient -+ C diff, on vancomycin, d/c'd omeprazole, patient clinically stable and diarrhea improving 6. Endo- hx fo DM c/u insulin and ISS, adjust prn 7. Psych- hx of depression c/u zoloft -atarax 10mg bid 8. DVT ppx- lovenox 9. - BPH c/u flomax, monitor for hematuria 10. Heme- iron deficiency anemia c/u iron supplements, recent blood loss due to hematuria and gi bleed- monitor, consider transfusion if Hgb <8 11. Dispo- 11-28-20 to home, progressing towards goals Allergies Coded Allergies: lisinopril (Verified Adverse Reaction, Intermediate, HYPOTENSION, 10/21/20) metformin (Verified Adverse Reaction, Intermediate, LOWERS KIDNEY FUNCTON, 10/21/20) finasteride (Verified Adverse Reaction, Unknown, DIZZINESS, 10/21/20) Vital Signs Vital Signs Date Time Temp Pulse Resp B/P (MAP) Pulse Ox O2 Delivery O2 Flow Rate FiO2 11/14/20 07:50 88 167/65 11/14/20 05:10 97.8 17 97 Room Air Laboratory Data Labs 24H Laboratory Tests 2 11/13/20 11:20: Bedside Glucose (Misc Panel) 191H 11/13/20 16:22: Bedside Glucose (Misc Panel) 143H 11/13/20 20:06: Bedside Glucose (Misc Panel) 160H 11/14/20 05:35: Bedside Glucose (Misc Panel) 156H 11/14/20 11:12: Bedside Glucose (Misc Panel) 160H Current Medications Current Medications Current Medications Medications (Trade) Dose Ordered Sig/Imelda Route PRN Reason Start Time Stop Time Status Last Admin Dose Admin Acetaminophen (Tylenol Tab) 650 mg Q4HP PRN PO fever/MILD PAIN (PS 1-4) 11/08/20 13:35 Albuterol/ Ipratropium (Combivent Respimat 100-20mcg) 1 puff RTID INH 11/08/20 20:00 11/14/20 07:27 Allopurinol (Zyloprim) 100 mg DAILY PO 11/09/20 09:00 11/14/20 07:50 Amlodipine Besylate (Norvasc) 5 mg DAILY PO 11/14/20 09:00 11/14/20 07:50 Amlodipine Besylate (Norvasc) 10 mg DAILY PO 11/09/20 09:00 11/13/20 19:53 DC 11/13/20 09:21 Artificial Tears (Akwa Tears) 2 drop TID OU 11/08/20 16:00 11/14/20 07:56 Aspirin (Ecotrin) 81 mg DAILY PO 11/09/20 09:00 11/14/20 07:48 Bisacodyl (Dulcolax Tab) 5 mg DAILYPRN PRN PO CONSTIPATION 11/08/20 13:35 11/10/20 16:06 DC Dextrose (Dextrose 50%) 25 ml ASDIRECTED PRN IV SEE LABEL COMMENTS 11/08/20 13:35 Docusate Sodium (Colace) 100 mg BID PO 11/08/20 21:00 11/10/20 16:06 DC 11/09/20 20:43 Enoxaparin Sodium (Lovenox) 40 mg DAILY SC 11/09/20 09:00 11/14/20 07:55 Ferrous Sulfate (Ferrous Sulfate) 325 mg BID PO 11/08/20 21:00 11/14/20 07:49 Furosemide (Lasix) 40 mg BID@09,17 PO 11/14/20 09:00 11/14/20 07:49 Furosemide (Lasix) 40 mg DAILY PO 11/09/20 09:00 11/10/20 16:06 DC 11/10/20 07:59 Glucagon (Glucagon) 1 mg ASDIRECTED PRN SC SEE LABEL COMMENTS 11/08/20 13:35 Glucose (Glucose) 16 GM ASDIRECTED PRN PO SEE LABEL COMMENTS 11/08/20 13:35 Guaifenesin (Robitussin Tab) 400 mg BID PO 11/08/20 21:00 11/14/20 07:55 Home Med (Med Rec Complete!) ASDIRECTED XX 11/08/20 15:20 11/08/20 15:53 DC Hydroxyzine HCl (Atarax) 10 mg BID PO 11/13/20 14:00 11/14/20 07:54 Insulin Detemir (Levemir Insulin) 25 units DAILY SC 11/09/20 09:00 11/14/20 07:55 Insulin Human Lispro (HumaLOG INSULIN) SEE PROTOCOL TABLE AC SC 11/08/20 17:30 11/14/20 07:48 Insulin Human Lispro (HumaLOG INSULIN) SEE PROTOCOL TABLE QHS SC 11/08/20 21:00 11/09/20 08:44 DC Isosorbide Dinitrate (Isordil) 20 mg Q6H PO 11/08/20 18:00 11/14/20 06:06 Lactobacillus Acidophilus (Bacid) 1 ea BID PO 11/13/20 21:00 11/14/20 07:48 Lactobacillus Acidophilus (Bacid) 1 ea TID PO 11/08/20 16:00 11/13/20 13:11 DC 11/13/20 09:20 Multivitamins (Theragram-M) 1 tab DAILY PO 11/09/20 09:00 11/14/20 07:49 Nitroglycerin (Nitrostat (1/ 150)) 0.4 mg Q5MP PRN SL CHEST PAIN 11/08/20 13:35 Omeprazole (PriLOSEC) 20 mg DAILY PO 11/09/20 09:00 11/11/20 11:03 DC 11/11/20 09:39 Potassium Chloride (Micro-K Extencaps) 10 meq BID PO 11/13/20 21:00 11/14/20 07:49 Primidone (Mysoline) 25 mg BID PO 11/08/20 21:00 11/14/20 07:48 Rosuvastatin Calcium (Crestor) 20 mg QHS PO 11/08/20 21:00 11/13/20 21:36 Senna (Senokot) 1 tab QHS PO 11/08/20 21:00 11/10/20 16:06 DC 11/09/20 20:43 Sertraline HCl (Zoloft) 25 mg QAM PO 11/09/20 09:00 11/14/20 07:48 Tamsulosin HCl (Flomax) 0.4 mg QHS PO 11/08/20 21:00 11/13/20 21:36 Vancomycin HCl (First-Vancomycin 50(Firvanq)- 250mg/5ml) 125 mg Q6H PO 11/10/20 18:00 11/24/20 17:59 11/14/20 06:06 Vitamin D (Vitamin D) 1,000 units DAILY PO 11/09/20 09:00 11/14/20 07:49 LV HEREDIA MD November 14, 2020 11:18
--- NOTE | 2020-11-14 11:19 | IPNPDOC ---
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 He is not interested in starting Aricept or similar medications to help with cognitive decline. REVIEW OF SYSTEMS: The following is a completed review of systems and has been reviewed. Review of systems otherwise unremarkable. PAIN: Patient self reports no pain EYES: No recent vision changes EARS, NOSE, & THROAT: No throat pain, or dysphagia, or rhinorrhea CARDIOVASCULAR: Denies chest pain or palpitations PULMONARY: Denies shortness of breath GASTROINTESTINAL: +diarrhea (improving) GENITOURINARY: +intermittent hematuria (not complaining of this while on ARU) MUSCULOSKELETAL: generalized weakness NEUROLOGICAL: denies paresthesias HEMATOLOGICAL: +anemia SKIN: denies rash PSYCHIATRIC: Unremarkable All other review of systems found to be negative. PHYSICAL EXAMINATION: VITAL SIGNS: Please see below. GENERAL: Pleasant and cooperative. No acute distress. HEENT: PERRL. Extraocular movements intact. Clear conjunctiva CARDIOVASCULAR: Regular rate and rhythm. No murmurs, rubs, or gallops LUNGS: Clear to auscultation bilaterally. No wheezes. No rhonchi ABDOMEN: Soft, nontender, mildly distended. Positive bowel sounds. NEUROLOGICAL: Alert and oriented times three. Cranial nerves II through XII gr ossly intact. Sensation grossly intact +babinski bilat EXTREMITIES: 5\5 strength bilateral upper extremities. 5\5 strength right lower extremity. 5/5 strength in left lower extremity. +bilat LE edema (improving) SKIN: no sacrum ulcers ASSESSMENT:70-year-old M with past medical history of syringomyelia who presents status post worsening weakness in setting of possible polymyalgia rheumatica flair and encephalopathy due to PNA and UTI. PLAN: 1. 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 Neuro- hx of cervicothoracic syrinx with worsening weakness in setting of possible polymyalgia rheumatic flair s/p IV solumedrol -f/u neurology and neuro-surgery, patient declining neurosurgical intervention at this time -tremor, c/u primidone 3. Cardiac- chronic diastolic CHF, daily weights, and fluid restrict, lasix recently d/c'd in setting of elevated BUN, renal consulted to help with fluid status, diuretic management per renal -HTN c/u BP meds -recent Aflutter, off AC due to GI bleed and hematuria- on ASA 4. Resp- hx of LIANNA on CPAP, s/p course of Zosyn for possible HAP vs aspiration PNA- cleared by speech for regular diet, monitor for infection -c/u combivent and incentive spirometry 5. GI- s/p recent endoscopy +non-bleeding internal hemorrhoids, diverticulitis, and polyps removed- f/u GI outpatient -+ C diff, on vancomycin, d/c'd omeprazole, patient clinically stable and diarrhea improving 6. Endo- hx fo DM c/u insulin and ISS, adjust prn 7. Psych- hx of depression c/u zoloft -atarax 10mg bid 8. DVT ppx- lovenox 9. - BPH c/u flomax, monitor for hematuria 10. Heme- iron deficiency anemia c/u iron supplements, recent blood loss due to hematuria and gi bleed- monitor, consider transfusion if Hgb <8 11. Dispo- 11-28-20 to home, progressing towards goals Allergies Coded Allergies: lisinopril (Verified Adverse Reaction, Intermediate, HYPOTENSION, 10/21/20) metformin (Verified Adverse Reaction, Intermediate, LOWERS KIDNEY FUNCTON, 10/21/20) finasteride (Verified Adverse Reaction, Unknown, DIZZINESS, 10/21/20) Vital Signs Vital Signs Date Time Temp Pulse Resp B/P (MAP) Pulse Ox O2 Delivery O2 Flow Rate FiO2 11/14/20 07:50 88 167/65 11/14/20 05:10 97.8 17 97 Room Air Laboratory Data Labs 24H Laboratory Tests 2 11/13/20 11:20: Bedside Glucose (Misc Panel) 191H 11/13/20 16:22: Bedside Glucose (Misc Panel) 143H 11/13/20 20:06: Bedside Glucose (Misc Panel) 160H 11/14/20 05:35: Bedside Glucose (Misc Panel) 156H 11/14/20 11:12: Bedside Glucose (Misc Panel) 160H Current Medications Current Medications Current Medications Medications (Trade) Dose Ordered Sig/Imelda Route PRN Reason Start Time Stop Time Status Last Admin Dose Admin Acetaminophen (Tylenol Tab) 650 mg Q4HP PRN PO fever/MILD PAIN (PS 1-4) 11/08/20 13:35 Albuterol/ Ipratropium (Combivent Respimat 100-20mcg) 1 puff RTID INH 11/08/20 20:00 11/14/20 07:27 Allopurinol (Zyloprim) 100 mg DAILY PO 11/09/20 09:00 11/14/20 07:50 Amlodipine Besylate (Norvasc) 5 mg DAILY PO 11/14/20 09:00 11/14/20 07:50 Amlodipine Besylate (Norvasc) 10 mg DAILY PO 11/09/20 09:00 11/13/20 19:53 DC 11/13/20 09:21 Artificial Tears (Akwa Tears) 2 drop TID OU 11/08/20 16:00 11/14/20 07:56 Aspirin (Ecotrin) 81 mg DAILY PO 11/09/20 09:00 11/14/20 07:48 Bisacodyl (Dulcolax Tab) 5 mg DAILYPRN PRN PO CONSTIPATION 11/08/20 13:35 11/10/20 16:06 DC Dextrose (Dextrose 50%) 25 ml ASDIRECTED PRN IV SEE LABEL COMMENTS 11/08/20 13:35 Docusate Sodium (Colace) 100 mg BID PO 11/08/20 21:00 11/10/20 16:06 DC 11/09/20 20:43 Enoxaparin Sodium (Lovenox) 40 mg DAILY SC 11/09/20 09:00 11/14/20 07:55 Ferrous Sulfate (Ferrous Sulfate) 325 mg BID PO 11/08/20 21:00 11/14/20 07:49 Furosemide (Lasix) 40 mg BID@09,17 PO 11/14/20 09:00 11/14/20 07:49 Furosemide (Lasix) 40 mg DAILY PO 11/09/20 09:00 11/10/20 16:06 DC 11/10/20 07:59 Glucagon (Glucagon) 1 mg ASDIRECTED PRN SC SEE LABEL COMMENTS 11/08/20 13:35 Glucose (Glucose) 16 GM ASDIRECTED PRN PO SEE LABEL COMMENTS 11/08/20 13:35 Guaifenesin (Robitussin Tab) 400 mg BID PO 11/08/20 21:00 11/14/20 07:55 Home Med (Med Rec Complete!) ASDIRECTED XX 11/08/20 15:20 11/08/20 15:53 DC Hydroxyzine HCl (Atarax) 10 mg BID PO 11/13/20 14:00 11/14/20 07:54 Insulin Detemir (Levemir Insulin) 25 units DAILY SC 11/09/20 09:00 11/14/20 07:55 Insulin Human Lispro (HumaLOG INSULIN) SEE PROTOCOL TABLE AC SC 11/08/20 17:30 11/14/20 07:48 Insulin Human Lispro (HumaLOG INSULIN) SEE PROTOCOL TABLE QHS SC 11/08/20 21:00 11/09/20 08:44 DC Isosorbide Dinitrate (Isordil) 20 mg Q6H PO 11/08/20 18:00 11/14/20 06:06 Lactobacillus Acidophilus (Bacid) 1 ea BID PO 11/13/20 21:00 11/14/20 07:48 Lactobacillus Acidophilus (Bacid) 1 ea TID PO 11/08/20 16:00 11/13/20 13:11 DC 11/13/20 09:20 Multivitamins (Theragram-M) 1 tab DAILY PO 11/09/20 09:00 11/14/20 07:49 Nitroglycerin (Nitrostat (1/ 150)) 0.4 mg Q5MP PRN SL CHEST PAIN 11/08/20 13:35 Omeprazole (PriLOSEC) 20 mg DAILY PO 11/09/20 09:00 11/11/20 11:03 DC 11/11/20 09:39 Potassium Chloride (Micro-K Extencaps) 10 meq BID PO 11/13/20 21:00 11/14/20 07:49 Primidone (Mysoline) 25 mg BID PO 11/08/20 21:00 11/14/20 07:48 Rosuvastatin Calcium (Crestor) 20 mg QHS PO 11/08/20 21:00 11/13/20 21:36 Senna (Senokot) 1 tab QHS PO 11/08/20 21:00 11/10/20 16:06 DC 11/09/20 20:43 Sertraline HCl (Zoloft) 25 mg QAM PO 11/09/20 09:00 11/14/20 07:48 Tamsulosin HCl (Flomax) 0.4 mg QHS PO 11/08/20 21:00 11/13/20 21:36 Vancomycin HCl (First-Vancomycin 50(Firvanq)- 250mg/5ml) 125 mg Q6H PO 11/10/20 18:00 11/24/20 17:59 11/14/20 06:06 Vitamin D (Vitamin D) 1,000 units DAILY PO 11/09/20 09:00 11/14/20 07:49 LV HEREDIA MD November 14, 2020 11:19
[2020-11-14 14:00] VITALS: BP 126/60
--- NOTE | 2020-11-14 16:37 | IPN ---
PROGRESS NOTE DATE: 11/14/2020 Mr. Vilchis is seen this morning on his bedside. He is sitting in the recliner chair at present. He feels weak, particularly in the right side. He denies any nausea, or vomiting. PHYSICAL EXAMINATION: Temperature 97.8 degrees Fahrenheit, heart rate 82 per minute, respiratory rate 17 per minute, blood pressure 131/72 mmHg, and oxygen saturation 98%. Intake and output records yesterday are inaccurate, and weight did not change. His head is atraumatic. Neck is supple and jugular venous distention (JVD) difficult to be assessed. Heart sounds are regular and distant. Lungs with diminished breath sounds. Abdomen obese and nontender, and bowel sounds are present. Extremities without any cyanosis or clubbing. There is at least 1+ edema of both legs. He also has some edema of the right arm and hand. Neurologically he remains very weak, and right-sided weakness is unchanged. Patient did not have any labs today. PROBLEMS: 1. Congestive heart failure. His volume status remains decompensated. We resumed diuretic yesterday and will continue to monitor his volume status closely. 2. Acute kidney injury superimposed on chronic kidney disease. Increase in BUN and creatinine is most likely related to diuresis. We will check his renal profile again tomorrow. 3. Hyponatremia, most likely related to congestive heart failure. I hope that it will improve with diuresis. 4. Hypokalemia. Potassium level is 3.6, and he is being diuresed. Potassium supplement has also been resumed, and electrolytes will be checked again tomorrow.
[2020-11-14 20:00] VITALS: BP 144/72
[2020-11-14] MEDS: TAMSULOSIN 0.4 MG CAP PO SCH (21:09)
[2020-11-14] MEDS: ROSUVASTATIN 10 MG TAB (CRESTOR) PO SCH (21:10)
[2020-11-15] VITALS: BP 135/63
[2020-11-15 05:24] VITALS: BP 146/65
[2020-11-15] MEDS: VANCOMYCIN ORAL SOL 250MG/5ML ORAL SYRINGE PO SCH ×4 (05:52→23:45)
[2020-11-15] MEDS: ISOSORBIDE DIN. (ISORDIL) 20 MG TAB PO SCH ×4 (05:52→23:45)
[2020-11-15 06:33] LABS: HEMATOCRIT 24.4 % (42.0-52.0); HEMOGLOBIN 8.2 g/dl (13.5-17.5); MEAN CORPUSCULAR HEMOGLOBIN 31.3 pg (27.0-33.0); MEAN CORPUSCULAR HGB CONC 33.6 g/dl (32.0-36.5); MEAN CORPUSCULAR VOLUME 93.1 fl (80.0-96.0); PLATELET COUNT, AUTOMATED 293 10^3/uL (150-450); RED BLOOD COUNT 2.62 10^6/uL (4.30-6.10); WHITE BLOOD COUNT 9.4 10^3/uL (4.0-10.0)
[2020-11-15 06:53] LABS: BLOOD UREA NITROGEN 66 MG/DL (7-18); CALCIUM LEVEL 7.7 MG/DL (8.8-10.2); CARBON DIOXIDE LEVEL 23 MEQ/L (21-32); CHLORIDE LEVEL 103 MEQ/L (98-107); CREATININE FOR GFR 1.24 MG/DL (0.70-1.30); GLOMERULAR FILTRATION RATE > 60.0 (>42); GLUCOSE, FASTING 149 MG/DL (70-100); POTASSIUM SERUM 3.9 MEQ/L (3.5-5.1); SODIUM LEVEL 134 MEQ/L (136-145)
[2020-11-15 07:13] LABS: ANISOCYTOSIS 1+; ATYPICAL LYMPH 3 % (0-5); BASOPHILS 1 % (0-1); LYMPHOCYTES 7 % (16-44); METAMYELOCYTES 1 % (0-0); MONOCYTES 15 % (0-5); NEUTROPHILS 73 % (28-66); PLATELET ESTIMATE NORMAL (NORMAL); POLYCHROMASIA 1+
[2020-11-15 07:14] LABS: POIKILOCYTOSIS 1+; TOXIC GRANULATION 1+
[2020-11-15] MEDS: COMBIVENT RESPIMAT 100-20MCG INHALER 4GM INH SCH ×3 (07:15→20:06)
[2020-11-15] MEDS: PRIMIDONE 25MG PER 1/2 TABLET PO SCH ×2 (08:50→20:28)
[2020-11-15] MEDS: POTASSIUM CHLORIDE 10 MEQ SR TABLET PO SCH ×2 (08:50→20:29)
[2020-11-15] MEDS: VITAMIN D 1,000 INTERNATIONAL UNITS TABLET PO SCH (08:50)
[2020-11-15] MEDS: FERROUS SULFATE 325MG TAB PO SCH ×2 (08:50→20:29)
[2020-11-15] MEDS: LACTOBACILLUS ACIDOPHILUS CAP (BACID) PO SCH ×2 (08:50→20:28)
[2020-11-15] MEDS: SERTRALINE HCL 25 MG TABLET PO SCH (08:50)
[2020-11-15] MEDS: ASPIRIN 81MG ENTERIC TABLET PO SCH (08:50)
[2020-11-15] MEDS: MULTIVITAMINS/MINERALS THERAP 1 TAB PO SCH (08:50)
[2020-11-15] MEDS: hydrOXYzine 10 MG TAB PO SCH ×2 (08:50→20:29)
[2020-11-15] MEDS: FUROSEMIDE 40 MG TAB PO SCH ×2 (08:51→18:12)
[2020-11-15] MEDS: guaiFENesin 200 MG TAB PO SCH ×2 (08:51→20:28)
[2020-11-15] MEDS: amLODIPine 5 MG TAB PO SCH (08:51)
[2020-11-15] MEDS: allopurinoL 100 MG TAB PO SCH (08:51)
[2020-11-15] MEDS: ENOXAPARIN 40MG/0.4ML SYRINGE (J1650 PER 10MG) SC SCH (08:51)
[2020-11-15] MEDS: POLYVINYL ALCOHOL OPHTH SOLN 15 ML(LIQUITEARS) OU SCH ×3 (08:52→20:29)
[2020-11-15] MEDS: LEVEMIR (INSULIN DETEMIR) 1 UNITS/0.01ML SC SCH (08:52)
[2020-11-15] MEDS: HumaLOG INSULIN (NovoLOG) PER UNIT SC SCH ×3 (08:52→18:11)
[2020-11-15] MEDS: REMEDY PHYTOPLEX Z-GUARD PASTE 113GM TUBE (FROM STOREROOM PRODUCT) TOP SCH ×3 (08:53→20:29)
[2020-11-15 14:00] VITALS: BP 124/76
[2020-11-15] MEDS: TAMSULOSIN 0.4 MG CAP PO SCH (20:29)
[2020-11-15] MEDS: ROSUVASTATIN 10 MG TAB (CRESTOR) PO SCH (20:29)
[2020-11-15 20:30] VITALS: BP 145/70
--- NOTE | 2020-11-15 22:23 | IPN ---
PROGRESS NOTE DATE: 11/15/2020 SUBJECTIVE: Mr. Vilchis is seen this morning on his bedside. He is sitting in his recliner chair with his feet elevated. He denies any nausea or vomiting. He reports that his urine output has improved significantly since diuretics were started. No nausea or vomiting reported. He is making slow progress with rehab. OBJECTIVE: On physical examination, temperature is 96.8 degrees Fahrenheit, heart rate 76 per minute and respiratory rate 18 per minute. Blood pressure 146/65 mmHg and oxygen saturation 98% on room air. Head is atraumatic. Neck supple and jugular venous pressure (JVP) difficult to be assessed. Heart sounds are regular. Lungs with diminished breath sounds at the bases. Abdomen: Obese, soft and nontender. Extremities without any cyanosis or clubbing. Lower extremity edema is 2+ bilaterally. Neurologically, he is at his baseline mentation. LABORATORY DATA: Today's labs show WBC count 9.4, hemoglobin 8.2 and hematocrit 24.4. Platelets 293. Sodium 134, potassium 3.9, Co2 23, BUN 66 and creatinine 1.24. Glucose 149 and calcium 7.7. PROBLEMS: 1. Acute kidney injury superimposed on chronic kidney disease. Slight improvement in kidney function is noticed over the last 48 hours. At this point, will continue to monitor his kidney function every couple of days. 2. Congestive heart failure. Volume status is clinically improving. He is responding to diuretics and probably his weight is not accurate as he has been weighed at the same for the last 4 days. He was negative by about 1.6 liters yesterday, though his intake recorded down 350 is not accurate. And even at this point, will continue with Furosemide 40 mg twice a day and continue to monitor his electrolytes and kidney function closely. 3. Hyponatremia. His sodium level slightly improved from 131 on November 13 up to 134 today. Will continue with diuretic and monitor electrolytes. 4. Anemia. His anemia is getting worse, but no blood loss has been reported. He is getting Lovenox 40 mg daily along with aspirin 81 mg daily. Iron studies will be added for next blood work. 5. Hypertension. Blood pressure is reasonably well controlled on current antihypertensives. His amlodipine dose has been cut down to 5 mg daily and we will upload if extremity edema.
[2020-11-16] MEDS ORDERED: ONDANSETRON 4 MG ORAL DISINTEGRATING TAB PO PRN (04:00)
[2020-11-16] MEDS: ISOSORBIDE DIN. (ISORDIL) 20 MG TAB PO SCH ×4 (06:20→23:33)
[2020-11-16 06:44] VITALS: BP 156/70
[2020-11-16] MEDS: COMBIVENT RESPIMAT 100-20MCG INHALER 4GM INH SCH ×3 (07:22→20:54)
[2020-11-16] MEDS: HumaLOG INSULIN (NovoLOG) PER UNIT SC SCH ×3 (08:17→17:31)
[2020-11-16] MEDS: hydrOXYzine 10 MG TAB PO SCH ×2 (08:18→20:44)
[2020-11-16] MEDS: guaiFENesin 200 MG TAB PO SCH ×2 (08:18→20:44)
[2020-11-16] MEDS: LEVEMIR (INSULIN DETEMIR) 1 UNITS/0.01ML SC SCH (08:18)
[2020-11-16] MEDS: FERROUS SULFATE 325MG TAB PO SCH ×2 (08:18→20:44)
[2020-11-16] MEDS: ENOXAPARIN 40MG/0.4ML SYRINGE (J1650 PER 10MG) SC SCH (08:18)
[2020-11-16] MEDS: MULTIVITAMINS/MINERALS THERAP 1 TAB PO SCH (08:18)
[2020-11-16] MEDS: amLODIPine 5 MG TAB PO SCH (08:19)
[2020-11-16] MEDS: PRIMIDONE 25MG PER 1/2 TABLET PO SCH ×2 (08:19→20:43)
[2020-11-16] MEDS: SERTRALINE HCL 25 MG TABLET PO SCH (08:19)
[2020-11-16] MEDS: ASPIRIN 81MG ENTERIC TABLET PO SCH (08:19)
[2020-11-16] MEDS: POTASSIUM CHLORIDE 10 MEQ SR TABLET PO SCH ×2 (08:20→20:44)
[2020-11-16] MEDS: VITAMIN D 1,000 INTERNATIONAL UNITS TABLET PO SCH (08:20)
[2020-11-16] MEDS: LACTOBACILLUS ACIDOPHILUS CAP (BACID) PO SCH ×2 (08:20→20:44)
[2020-11-16] MEDS: FIDAXOMICIN 200 MG TAB (DIFICID) PO SCH ×2 (08:20→20:44)
[2020-11-16] MEDS: allopurinoL 100 MG TAB PO SCH (08:20)
[2020-11-16] MEDS: FUROSEMIDE 40 MG TAB PO SCH ×2 (08:20→17:31)
[2020-11-16] MEDS: REMEDY PHYTOPLEX Z-GUARD PASTE 113GM TUBE (FROM STOREROOM PRODUCT) TOP SCH ×3 (08:21→20:45)
[2020-11-16] MEDS: POLYVINYL ALCOHOL OPHTH SOLN 15 ML(LIQUITEARS) OU SCH ×3 (08:21→20:45)
[2020-11-16 08:25] LABS: ALBUMIN 1.7 GM/DL (3.2-5.2); BLOOD UREA NITROGEN 61 MG/DL (7-18); CALCIUM LEVEL 7.6 MG/DL (8.8-10.2); CARBON DIOXIDE LEVEL 26 MEQ/L (21-32); CHLORIDE LEVEL 103 MEQ/L (98-107); CREATININE FOR GFR 1.04 MG/DL (0.70-1.30); GLOMERULAR FILTRATION RATE > 60.0 (>42); GLUCOSE, FASTING 131 MG/DL (70-100); IRON (FE) 49 UG/DL (65-175); PHOSPHORUS LEVEL 2.5 MG/DL (2.5-4.9); POTASSIUM SERUM 3.9 MEQ/L (3.5-5.1); SODIUM LEVEL 135 MEQ/L (136-145); TOTAL IRON BINDING CAPACITY 158 UG/DL (250-450)
[2020-11-16] MEDS: OMEPRAZOLE 20 MG CAP PO SCH (13:58)
[2020-11-16 14:00] VITALS: BP 141/3
[2020-11-16 20:30] VITALS: BP 143/63
[2020-11-16] MEDS: TAMSULOSIN 0.4 MG CAP PO SCH (20:44)
[2020-11-16] MEDS: ROSUVASTATIN 10 MG TAB (CRESTOR) PO SCH (20:44)
[2020-11-17 05:38] VITALS: BP 150/69
[2020-11-17] MEDS: ISOSORBIDE DIN. (ISORDIL) 20 MG TAB PO SCH ×4 (05:43→23:44)
[2020-11-17] MEDS: HumaLOG INSULIN (NovoLOG) PER UNIT SC SCH ×3 (07:30→17:28)
[2020-11-17] MEDS: COMBIVENT RESPIMAT 100-20MCG INHALER 4GM INH SCH ×3 (08:00→21:45)
[2020-11-17] MEDS: hydrOXYzine 10 MG TAB PO SCH ×2 (08:13→21:46)
[2020-11-17] MEDS: SERTRALINE HCL 25 MG TABLET PO SCH (08:13)
[2020-11-17] MEDS: allopurinoL 100 MG TAB PO SCH (08:13)
[2020-11-17] MEDS: ASPIRIN 81MG ENTERIC TABLET PO SCH (08:13)
[2020-11-17] MEDS: POTASSIUM CHLORIDE 10 MEQ SR TABLET PO SCH ×2 (08:13→21:47)
[2020-11-17] MEDS: OMEPRAZOLE 20 MG CAP PO SCH (08:13)
[2020-11-17] MEDS: VITAMIN D 1,000 INTERNATIONAL UNITS TABLET PO SCH (08:13)
[2020-11-17] MEDS: ENOXAPARIN 40MG/0.4ML SYRINGE (J1650 PER 10MG) SC SCH (08:13)
[2020-11-17] MEDS: FERROUS SULFATE 325MG TAB PO SCH ×2 (08:13→21:46)
[2020-11-17] MEDS: amLODIPine 5 MG TAB PO SCH (08:14)
[2020-11-17] MEDS: FUROSEMIDE 40 MG TAB PO SCH ×2 (08:14→17:28)
[2020-11-17] MEDS: guaiFENesin 200 MG TAB PO SCH ×2 (08:14→21:47)
[2020-11-17] MEDS: LACTOBACILLUS ACIDOPHILUS CAP (BACID) PO SCH ×2 (08:14→21:46)
[2020-11-17] MEDS: FIDAXOMICIN 200 MG TAB (DIFICID) PO SCH ×2 (08:14→21:47)
[2020-11-17] MEDS: PRIMIDONE 25MG PER 1/2 TABLET PO SCH ×2 (08:14→21:47)
[2020-11-17] MEDS: MULTIVITAMINS/MINERALS THERAP 1 TAB PO SCH (08:14)
[2020-11-17] MEDS: POLYVINYL ALCOHOL OPHTH SOLN 15 ML(LIQUITEARS) OU SCH ×3 (08:15→21:52)
[2020-11-17] MEDS: LEVEMIR (INSULIN DETEMIR) 1 UNITS/0.01ML SC SCH (08:15)
[2020-11-17] MEDS: REMEDY PHYTOPLEX Z-GUARD PASTE 113GM TUBE (FROM STOREROOM PRODUCT) TOP SCH ×3 (08:16→21:52)
[2020-11-17 14:00] VITALS: BP 150/67
--- NOTE | 2020-11-17 14:13 | IPN ---
NEPHROLOGY PROGRESS NOTE DATE: 11/16/2020 SUBJECTIVE: The patient was seen and examined at the bedside today morning. He is afebrile, hemodynamically stable. He has a good urine output. He was started on diuretics. He reports that his edema is getting better. Renal function is stable. OBJECTIVE: VITAL SIGNS: Temperature is 98.2 degrees Fahrenheit, blood pressure 143/63, pulse is 78, respiratory rate of 18, saturating 96% on room air. INTAKE AND OUTPUT: Urine output recorded as 1,600 mL yesterday, 600 mL so far today since overnight. Weight in the bed scale is 106.1 kg, which is 2 kg below his weight yesterday. PHYSICAL EXAMINATION: GENERAL APPEARANCE: The patient is awake, alert, oriented x3, laying in bed in no apparent distress. HEAD AND NECK: Extraocular muscles intact. Pupils are equally round and reactive to light. Mucous membranes are moist. Neck is supple. There is mildly elevated jugular venous distention. CARDIOVASCULAR: S1, S2, regular rate. EXTREMITIES: 2+ edema of the bilateral lower extremities all the way up to his thighs was noted. RESPIRATORY: Mildly decreased breath sounds at the bases, otherwise no active rales or rhonchi. ABDOMEN: Soft, obese with a mild amount of abdominal wall edema noted. GENITOURINARY: He does not have an Lamas catheter. No hernia was noted. MUSCULOSKELETAL: Edema of the bilateral lower extremities and weakness of the lower extremities was noted. REFUSE LABORER: The patient has syringomyelia. Currently he is bedridden and he reports that he is unable to walk now days because of weakness. LAB REVIEW: CBC showed a white blood cell count of 9.4, hemoglobin 8.2, platelet count 293 and that was from yesterday. BMP done today morning showed sodium 135, potassium 3.9, chloride 103, bicarbonate 26, BUN 61, creatinine is 1.04; it was 1.2 yesterday. Calcium is 7.6, phosphorous 2.5, iron is 49. Transferrin saturation is 31. Albumin is 1.7. CURRENT INPATIENT MEDICATIONS: The patient's medications were all reviewed by myself. The patient is currently on Lasix 40 mg p.o. twice daily. No significant change in the medications as compared with yesterday. Oral Vancomycin will be stopped today. ASSESSMENT AND PLAN: 1. Acute renal failure superimposed on chronic kidney disease - The patient is non oliguric. He is actually responding to the diuretics. Renal function is improving with improvement in the volume status. Continue current dose of Lasix at this time. 2. Hyponatremia - The patient had hypervolemic hyponatremia. Sodium is slowly trending down with more diuresis. 3. Acute decompensated diastolic congestive heart failure - The patient has normal EF and grade one diastolic dysfunction on echocardiogram done in July 2020. Continue current dose of Lasix. If edema persists, then Lasix dose will be increased. 4. Hypertension - continue current dose of Amlodipine and Isosorbide. 5. 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 daily. 6. C-diff colitis diarrhea the patient's oral Vancomycin has been stopped. The patient has been started on Dificid 200 mg p.o. twice daily. The rest of the management is as per the Medical Team.
[2020-11-17 20:00] VITALS: BP 145/65
[2020-11-17] MEDS: ROSUVASTATIN 10 MG TAB (CRESTOR) PO SCH (21:46)
[2020-11-17] MEDS: TAMSULOSIN 0.4 MG CAP PO SCH (21:47)
--- NOTE | 2020-11-17 22:43 | IPN ---
NEPHROLOGY PROGRESS NOTE DATE: 11/17/2020 SUBJECTIVE: Patient was seen and examined at the bedside today morning. He reports that his leg edema is slowly getting better. His weight is also trending down. Otherwise his renal function is stable. He denies any active complaints at this time. OBJECTIVE: VITAL SIGNS: Temperature 97.6 degrees Fahrenheit, blood pressure 150/67, pulse 80, respiratory rate 18, saturating 93% on room air. INTAKE/OUTPUT: Urine output recorded as 1250 mL since overnight. Weight in the bed scale is 104.6 kg, which is about 2-1/2 kg below his weight yesterday. PHYSICAL EXAMINATION: GENERAL: Patient is awake, alert, oriented x3, sitting in the recliner today. HEAD/NECK: Extraocular muscles intact. Pupils equally round and reactive to light. Mucous membranes are moist. Neck is supple. Mildly elevated JVD. CVS: S1, S2, regular rate. 2+ edema of bilateral lower extremities and thighs. RESPIRATORY: Chest is clear to auscultation bilaterally. Bilateral equal air entry. ABDOMEN: Soft, obese, positive bowel sounds. Mild abdominal wall edema. MUSCULOSKELETAL: Edema of the bilateral lower extremities as mentioned above. Otherwise no clubbing or cyanosis. ARCHIVIST MILITARY HISTORY: Patient has syringomyelia and is unable to walk at this time because of weakness. He is in the recliner at this time. He is able to follow commands and move bilateral upper extremities. LAB REVIEW: CBC showed WBC 9.4, hemoglobin 8.2, platelets 293,000 and that is from November 15. BMP done yesterday showed creatinine 1.04. CURRENT INPATIENT MEDICATIONS: Patient's medications were all reviewed by myself. He continues to be on Lasix 40 mg p.o. twice a day. No other significant change in the medications as compared with yesterday. ASSESSMENT AND PLAN: 1. Chronic kidney disease stage 2: Patient had acute kidney injury. Renal function has resolved back to his baseline. Creatinine is 1.04 as of yesterday. Okay to continue diuretics at this time. 2. Acute decompensated diastolic congestive heart failure: Continue Lasix 40 mg p.o. twice a day. His weight is slowly improving. He is responding to the current diuretic regimen. 3. Hypertension: Continue Amlodipine and Isosorbide. 4. C. diff colitis diarrhea: He is on Dificid. Frequency of stools is getting better. 5. Anemia secondary to chronic kidney disease: Patient got his iron level set there within the acceptable range right now. He will be given a dose of Aranesp.
[2020-11-17] MEDS: DARBEPOETIN 100 MCG/0.5 ML *NON-DIALYSIS* SYRINGE (J0881) SC SCH (23:45)
[2020-11-18 05:11] VITALS: BP 149/66
[2020-11-18] MEDS: ISOSORBIDE DIN. (ISORDIL) 20 MG TAB PO SCH ×4 (05:25→23:59)
[2020-11-18] MEDS: COMBIVENT RESPIMAT 100-20MCG INHALER 4GM INH SCH ×3 (07:38→20:05)
[2020-11-18] MEDS: HumaLOG INSULIN (NovoLOG) PER UNIT SC SCH ×3 (08:56→17:35)
[2020-11-18] MEDS: LEVEMIR (INSULIN DETEMIR) 1 UNITS/0.01ML SC SCH (08:56)
[2020-11-18] MEDS: ENOXAPARIN 40MG/0.4ML SYRINGE (J1650 PER 10MG) SC SCH (08:56)
[2020-11-18] MEDS: MULTIVITAMINS/MINERALS THERAP 1 TAB PO SCH (08:57)
[2020-11-18] MEDS: VITAMIN D 1,000 INTERNATIONAL UNITS TABLET PO SCH (08:57)
[2020-11-18] MEDS: LACTOBACILLUS ACIDOPHILUS CAP (BACID) PO SCH ×2 (08:57→21:09)
[2020-11-18] MEDS: SERTRALINE HCL 25 MG TABLET PO SCH (08:57)
[2020-11-18] MEDS: FIDAXOMICIN 200 MG TAB (DIFICID) PO SCH ×2 (08:57→21:09)
[2020-11-18] MEDS: PRIMIDONE 25MG PER 1/2 TABLET PO SCH ×2 (08:57→21:09)
[2020-11-18] MEDS: FUROSEMIDE 40 MG TAB PO SCH (08:58)
[2020-11-18] MEDS: ASPIRIN 81MG ENTERIC TABLET PO SCH (08:58)
[2020-11-18] MEDS: POTASSIUM CHLORIDE 10 MEQ SR TABLET PO SCH ×2 (08:58→21:07)
[2020-11-18] MEDS: OMEPRAZOLE 20 MG CAP PO SCH (08:58)
[2020-11-18] MEDS: FERROUS SULFATE 325MG TAB PO SCH ×2 (08:58→21:07)
[2020-11-18] MEDS: guaiFENesin 200 MG TAB PO SCH ×2 (08:58→21:07)
[2020-11-18] MEDS: hydrOXYzine 10 MG TAB PO SCH ×2 (08:59→21:08)
[2020-11-18] MEDS: allopurinoL 100 MG TAB PO SCH (08:59)
[2020-11-18] MEDS: amLODIPine 5 MG TAB PO SCH (08:59)
[2020-11-18] MEDS: REMEDY PHYTOPLEX Z-GUARD PASTE 113GM TUBE (FROM STOREROOM PRODUCT) TOP SCH ×3 (08:59→21:10)
[2020-11-18] MEDS: POLYVINYL ALCOHOL OPHTH SOLN 15 ML(LIQUITEARS) OU SCH ×3 (09:00→21:11)
[2020-11-18 12:00] LABS: BASO % 0.2 % (0.0-1.0); EOS # 0.1 10^3/uL (0.0-0.5); EOS % 0.7 % (0.0-3.0); HEMATOCRIT 22.5 % (42.0-52.0); HEMOGLOBIN 7.7 g/dl (13.5-17.5); LYMPH # 0.7 10^3/uL (1.5-5.0); LYMPH % 4.9 % (24.0-44.0); MEAN CORPUSCULAR HGB CONC 34.2 g/dl (32.0-36.5); MEAN CORPUSCULAR VOLUME 93.4 fl (80.0-96.0); MONO # 0.8 10^3/uL (0.0-0.8); MONO % 5.5 % (2.0-8.0); NEUTROPHILS # 12.9 10^3/uL (1.5-8.5); PLATELET COUNT, AUTOMATED 275 10^3/uL (150-450); RED BLOOD COUNT 2.41 10^6/uL (4.30-6.10); WHITE BLOOD COUNT 14.8 10^3/uL (4.0-10.0)
[2020-11-18 12:23] LABS: BLOOD UREA NITROGEN 53 MG/DL (7-18); CALCIUM LEVEL 8.1 MG/DL (8.8-10.2); CARBON DIOXIDE LEVEL 27 MEQ/L (21-32); CHLORIDE LEVEL 102 MEQ/L (98-107); CREATININE FOR GFR 1.15 MG/DL (0.70-1.30); GLOMERULAR FILTRATION RATE > 60.0 (>42); GLUCOSE, FASTING 154 MG/DL (70-100); PHOSPHORUS LEVEL 2.6 MG/DL (2.5-4.9); POTASSIUM SERUM 3.8 MEQ/L (3.5-5.1); SODIUM LEVEL 134 MEQ/L (136-145)
[2020-11-18 14:00] VITALS: BP 148/66
--- NOTE | 2020-11-18 16:28 | IPN ---
PROGRESS NOTE DATE: 11/18/2020 SUBJECTIVE: Patient was seen and examined today morning in the rehabilitation unit. He is sitting up in the recliner today. He continues to be on diuretic but he still reports persistent lower extremity edema. Otherwise, denies any active complaints. He reports that he walks with physical therapy and he walked about 200 feet today. OBJECTIVE: Vital signs: Temperature is 97.1 degrees Fahrenheit, blood pressure 149/66, pulse is 72, respiratory rate of 19, saturating 100% on room air. Intake and output: Urine output recorded 1.6 liters yesterday, 400 mL so far today since overnight. Weight in the bed scale is 106.2 kg. PHYSICAL EXAMINATION: General: Patient is awake, alert, oriented times three, laying in the recliner. Head and neck exam: Extraocular muscles intact. Pupils equally round and reactive to light. He has an old surgical scar in the back of the neck. Cardiovascular: S1, S2. 2+ edema of the bilateral lower extremities, 1+ edema of bilateral upper extremities. Respiratory: Chest is clear to auscultation bilaterally. Abdomen: Soft, positive bowel sounds, obese, abdominal wall edema is noted. Central nervous system (PUBLIC SERVICE DIRECTOR): Patient moves bilateral upper extremities and follows commands. LABORATORY REVIEW: CBC is from 11/15/2020 and BMP is from 11/16/2020. No new lab is available at this time. CURRENT INPATIENT MEDICATIONS: Patient's medications were all reviewed by myself. I have stopped his Lasix and I have started the patient on torsemide 30 mg by mouth twice a day. No other significant change in the medications today. ASSESSMENT AND PLAN: 1. Acute decompensated diastolic congestive heart failure. Patient's volume status is still decompensated. He has significant edema. Lasix has been stopped and he has been started on torsemide for better absorption and bioavailability. Continue to monitor intake and output. 2. Chronic kidney disease stage II. Renal function is stable as of the labs that were done 2 days ago. Repeat renal profile will be checked in the morning. 3. Hypertension. Continue amlodipine and isosorbide. If edema persists then isosorbide will need to be decreased because of persistent edema. 4. Clostridium (C) difficile colitis. Patient is on Dificid. Diarrhea is getting better. 5. Anemia secondary to chronic kidney disease. His iron levels were optimal. He was given one dose of Aranesp yesterday. Repeat complete blood count (CBC) in the morning.
[2020-11-18] MEDS: TORSEMIDE 10 MG TABLET PO SCH (17:35)
[2020-11-18 20:00] VITALS: BP 146/66
[2020-11-18] MEDS: TAMSULOSIN 0.4 MG CAP PO SCH (21:07)
[2020-11-18] MEDS: ROSUVASTATIN 10 MG TAB (CRESTOR) PO SCH (21:09)
[2020-11-19] VITALS (8 sets, daily range): BP systolic 138–167; BP diastolic 60–72
[2020-11-19] MEDS: ISOSORBIDE DIN. (ISORDIL) 20 MG TAB PO SCH ×3 (06:15→18:11)
[2020-11-19 06:52] LABS: BASO % 0.2 % (0.0-1.0); EOS # 0.1 10^3/uL (0.0-0.5); EOS % 0.8 % (0.0-3.0); HEMATOCRIT 22.1 % (42.0-52.0); HEMOGLOBIN 7.5 g/dl (13.5-17.5); LYMPH # 0.8 10^3/uL (1.5-5.0); LYMPH % 6.8 % (24.0-44.0); MEAN CORPUSCULAR HEMOGLOBIN 32.1 pg (27.0-33.0); MEAN CORPUSCULAR HGB CONC 33.9 g/dl (32.0-36.5); MEAN CORPUSCULAR VOLUME 94.4 fl (80.0-96.0); MONO # 0.6 10^3/uL (0.0-0.8); MONO % 5.1 % (2.0-8.0); NEUTROPHILS # 10.5 10^3/uL (1.5-8.5); NEUTROPHILS % 85.1 % (36.0-66.0); PLATELET COUNT, AUTOMATED 282 10^3/uL (150-450); RED BLOOD COUNT 2.34 10^6/uL (4.30-6.10); WHITE BLOOD COUNT 12.4 10^3/uL (4.0-10.0)
[2020-11-19] MEDS: COMBIVENT RESPIMAT 100-20MCG INHALER 4GM INH SCH ×3 (07:16→20:08)
[2020-11-19] MEDS: HumaLOG INSULIN (NovoLOG) PER UNIT SC SCH ×3 (07:30→18:11)
[2020-11-19] MEDS: hydrOXYzine 10 MG TAB PO SCH ×2 (08:50→21:47)
[2020-11-19] MEDS: FERROUS SULFATE 325MG TAB PO SCH ×2 (08:50→21:48)
[2020-11-19] MEDS: ASPIRIN 81MG ENTERIC TABLET PO SCH (08:50)
[2020-11-19] MEDS: PRIMIDONE 25MG PER 1/2 TABLET PO SCH ×2 (08:50→21:47)
[2020-11-19] MEDS: allopurinoL 100 MG TAB PO SCH (08:50)
[2020-11-19] MEDS: MULTIVITAMINS/MINERALS THERAP 1 TAB PO SCH (08:50)
[2020-11-19] MEDS: SERTRALINE HCL 25 MG TABLET PO SCH (08:50)
[2020-11-19] MEDS: LACTOBACILLUS ACIDOPHILUS CAP (BACID) PO SCH ×2 (08:50→21:46)
[2020-11-19] MEDS: guaiFENesin 200 MG TAB PO SCH ×2 (08:50→21:46)
[2020-11-19] MEDS: TORSEMIDE 10 MG TABLET PO SCH (08:50)
[2020-11-19] MEDS: FIDAXOMICIN 200 MG TAB (DIFICID) PO SCH ×2 (08:50→21:46)
[2020-11-19] MEDS: VITAMIN D 1,000 INTERNATIONAL UNITS TABLET PO SCH (08:50)
[2020-11-19] MEDS: amLODIPine 5 MG TAB PO SCH (08:51)
[2020-11-19] MEDS: LEVEMIR (INSULIN DETEMIR) 1 UNITS/0.01ML SC SCH (08:51)
[2020-11-19] MEDS: OMEPRAZOLE 20 MG CAP PO SCH (08:51)
[2020-11-19] MEDS: POTASSIUM CHLORIDE 10 MEQ SR TABLET PO SCH ×2 (08:51→21:47)
[2020-11-19] MEDS: ENOXAPARIN 40MG/0.4ML SYRINGE (J1650 PER 10MG) SC SCH (08:52)
[2020-11-19] MEDS: POLYVINYL ALCOHOL OPHTH SOLN 15 ML(LIQUITEARS) OU SCH ×3 (09:41→21:48)
[2020-11-19] MEDS: REMEDY PHYTOPLEX Z-GUARD PASTE 113GM TUBE (FROM STOREROOM PRODUCT) TOP SCH ×3 (09:41→21:49)
--- NOTE | 2020-11-19 11:45 | IPN ---
PROGRESS NOTE DATE: 11/19/2020 SUBJECTIVE: The patient was seen and examined at the bedside today morning. He is afebrile and hemodynamically stable. He continues to be on diuretics. He still reports persistent lower extremity edema. His hemoglobin has also dropped today and I took consent for blood transfusion. OBJECTIVE: VITAL SIGNS: Temperature is 97.6 degrees Fahrenheit, blood pressure 148/67, pulse 70, respiratory rate of 19, saturating 99%. INTAKE AND OUTPUT: Urine output recorded is 200 mL, however, he has had four voids and each one of them is not recorded well. Weight on the bed scale is still stable at 106.1 kg. GENERAL: The patient is awake, alert, and oriented x3, laying in bed in no apparent distress. HEAD AND NECK: Extraocular muscles intact. Pupils are equally round and reactive to light. Mucous membranes are moist. Neck is supple. Mildly elevated JVD. CARDIOVASCULAR: S1, S2. Regular rate. About 3+ edema of the bilateral lower extremities and 1+ edema of bilateral upper extremities. RESPIRATORY: Chest is clear to auscultation bilaterally. ABDOMEN: Soft and obese with positive bowel sounds. MUSCULOSKELETAL: Edema of the lower extremities as mentioned above. TECHNICAL SUPPORT MANAGER: No focal deficits. Power is 5/5 in all extremities. LABORATORY DATA: CBC showed a WBC of 12.4, hemoglobin 7.5, platelets 282,000. BMP showed sodium 134, potassium 3.8, chloride 102, bicarb 27, BUN 53, creatinine 1.15, and it was 1.04 yesterday. CURRENT INPATIENT MEDICATIONS: The patient's medications were all reviewed by myself. He is currently on torsemide 30 mg p.o. twice a day. No other significant change in the medications. ASSESSMENT AND PLAN: 1. Chronic kidney disease stage III. Renal function is stable. Okay to continue diuretics because of significant edema. 2. Acute decompensated diastolic congestive heart failure. The patient is significantly volume overloaded. He was stated on torsemide after switching from Lasix yesterday. He has received two doses so far. If he does not show much improvement in edema, then the dose will be increased to 40 mg p.o. twice a day. 3. Hypertension. Blood pressure is controlled. Both of the antihypertensives can cause edema. I will continue the dose at this time. 4. Clostridium difficile (C. diff) colitis. Diarrhea is controlled with the current dose of Dificid. 5. Anemia and chronic kidney disease. Despite dose of Aranesp, his hemoglobin has dropped. I am going to give him one unit of packed red blood cells (PRBC) transfusion today.
--- NOTE | 2020-11-19 14:56 | IPNPDOC ---
Text Note Date of Service The patient was seen on 11/19/20. NOTE Patient feels good and denies incr SOB, fevers, chills, chest pain. PHYSICAL EXAM: VITAL SIGNS: SEE BELOW GENERAL: NAD, sitting up at bedside chair. AAOx3 HEENT: PERRLA, EOM intact, poor dentition, AT/NC LUNGS: CTAB. No wheezing, rales, or rhonchi. mild b/l bases fine crakles HEART: S1, S2. Sinus rhythm currently . No M/R/G ABDOMEN: Soft, nontender, nondistended, and obese. EXTREMITIES: No cyanosis, clubbing. +1-2 pitting edema b/l lower ext. NEUROLOGIC: Generalized weakness 4/5 in lower ext, 5/5 strength in upper ext. No focal deficits, CN 2-12 intact. Sensory and motor intact Assessment and plan: 70-year-old male with history of syringomyelia admitted to ARU for continued rehab after hospitalization for polymyalgia rheumatica, RML/RLL aspiration vs. HCAP , UTI. 1: Weakness likely 2/2 to polymyalgia rheumatica in the setting of chronic syringomyelia: C/w PT/OT and tx for issues below 2: Polymyalgia rheumatica in the setting of chronic syringomyelia: right-sided deficit improved with IV Uimw-[id number] 5 total doses, cont PT/OT. Received full workup with repeat MRI of the brain and lumbar puncture, all of which had been unchanged and negative for any meningeal infection. 3: Acute on chronic anemia 2/2 recurrent gross hematuria and status post history of recent GI bleed. H/h stable with mild downward trend. S/p EGD/colonoscopy. Neg biopsies. Continue to monitor closely, regular CBC 4: Lower ext swelling c/w torsemide daily . Monitor u/o, edema 5: Urinary retention poss 2/2 to BPH: C/w flomax, finasteride 6: DM type II worsened by steroids : c/w levemir dose, ISS AC, consistent carb diet, FS AC/HS 7: Enterococcus urinary tract infection in the setting of recent gross hematuria with clemens catheter due to urine retention-treated : completed 3 days of cipro on 11/04/20 8: Right middle and right lower lobe aspiration vs HCAP- resolved DVT px : lovenox Dispo. We will continue to follow him regularly while in ARU. Goal: home with family. VS,Fransicobone, I+O VS, Fishbone, I+O Laboratory Tests 11/19/20 06:31 Vital Signs Date Time Temp Pulse Resp B/P (MAP) Pulse Ox O2 Delivery O2 Flow Rate FiO2 11/19/20 14:00 97.5 83 18 166/70 (102) 98 Room Air I&O- Last 24 Hours up to 6 AM 11/19/20 05:59 Intake Total 890 ml Output Total 800 ml Balance 90 ml GARTH REYES MD November 19, 2020 14:56
[2020-11-19] MEDS: TORSEMIDE 20 MG TAB PO SCH (18:11)
[2020-11-19] MEDS: PREPARATION H SUPP (HEMORRHOID) PR SCH (21:00)
[2020-11-19] MEDS: ROSUVASTATIN 10 MG TAB (CRESTOR) PO SCH (21:46)
[2020-11-19] MEDS: TAMSULOSIN 0.4 MG CAP PO SCH (21:48)
[2020-11-20] MEDS: ISOSORBIDE DIN. (ISORDIL) 20 MG TAB PO SCH ×5 (00:25→23:56)
[2020-11-20 06:03] VITALS: BP 158/70
[2020-11-20 06:46] LABS: BASO % 0.3 % (0.0-1.0); EOS # 0.1 10^3/uL (0.0-0.5); EOS % 0.8 % (0.0-3.0); HEMATOCRIT 27.9 % (42.0-52.0); HEMOGLOBIN 9.4 g/dl (13.5-17.5); LYMPH # 0.9 10^3/uL (1.5-5.0); LYMPH % 7.1 % (24.0-44.0); MEAN CORPUSCULAR HEMOGLOBIN 31.6 pg (27.0-33.0); MEAN CORPUSCULAR HGB CONC 33.7 g/dl (32.0-36.5); MEAN CORPUSCULAR VOLUME 93.9 fl (80.0-96.0); MONO # 0.6 10^3/uL (0.0-0.8); MONO % 5.1 % (2.0-8.0); NEUTROPHILS # 10.2 10^3/uL (1.5-8.5); NEUTROPHILS % 85.4 % (36.0-66.0); PLATELET COUNT, AUTOMATED 282 10^3/uL (150-450); RED BLOOD COUNT 2.97 10^6/uL (4.30-6.10); WHITE BLOOD COUNT 11.9 10^3/uL (4.0-10.0)
[2020-11-20 07:08] LABS: ALBUMIN 2.2 GM/DL (3.2-5.2); BLOOD UREA NITROGEN 38 MG/DL (7-18); CALCIUM LEVEL 7.9 MG/DL (8.8-10.2); CARBON DIOXIDE LEVEL 25 MEQ/L (21-32); CHLORIDE LEVEL 104 MEQ/L (98-107); CREATININE FOR GFR 0.94 MG/DL (0.70-1.30); GLOMERULAR FILTRATION RATE > 60.0 (>42); GLUCOSE, FASTING 108 MG/DL (70-100); PHOSPHORUS LEVEL 3.3 MG/DL (2.5-4.9); SODIUM LEVEL 139 MEQ/L (136-145)
[2020-11-20] MEDS: COMBIVENT RESPIMAT 100-20MCG INHALER 4GM INH SCH ×3 (07:26→20:13)
--- NOTE | 2020-11-20 08:21 | IPNPDOC ---
PM&R Progress Note DATE OF SERVICE: November 19, 2020 [facility] Director Progress Note Subjective: Patient reporting he feels good today and has been making significant gains in therapy and is bale to stand up from low surfaces. He denies blood in urine, but stated an aid had noticed some blood with wiping his bottom the other day. He is agreeable to receive blood transfusion and denies feeling weak or light headed. REVIEW OF SYSTEMS: The following is a completed review of systems and has been reviewed. Review of systems otherwise unremarkable. PAIN: Patient self reports no pain EYES: No recent vision changes EARS, NOSE, & THROAT: No throat pain, or dysphagia, or rhinorrhea CARDIOVASCULAR: Denies chest pain or palpitations PULMONARY: Denies shortness of breath GASTROINTESTINAL: +diarrhea (improving) GENITOURINARY: +intermittent hematuria (not complaining of this while on ARU) MUSCULOSKELETAL: generalized weakness NEUROLOGICAL: denies paresthesias HEMATOLOGICAL: +anemia SKIN: denies rash PSYCHIATRIC: Unremarkable All other review of systems found to be negative. PHYSICAL EXAMINATION: VITAL SIGNS: Please see below. GENERAL: Pleasant and cooperative. No acute distress. HEENT: PERRL. Extraocular movements intact. Clear conjunctiva CARDIOVASCULAR: Regular rate and rhythm. No murmurs, rubs, or gallops LUNGS: Clear to auscultation bilaterally. No wheezes. No rhonchi ABDOMEN: Soft, nontender, mildly distended. Positive bowel sounds. NEUROLOGICAL: Alert and oriented times three. Cranial nerves II through XII grossly intact. Sensation grossly intact +babinski bilat EXTREMITIES: 5\5 strength bilateral upper extremities. 5\5 strength right lower extremity. 5/5 strength in left lower extremity. +bilat LE edema (improving) SKIN: no sacrum ulcers ASSESSMENT:70-year-old M with past medical history of syringomyelia who presents status post worsening weakness in setting of possible polymyalgia rheumatica flair and encephalopathy due to PNA and UTI. PLAN: 1. Rehab- PT/OT- advance mobility and ADL, strengthen/stretch/maintain ROM all 4 limbs -will defer MULTISENSOR INTELLIGENCE OFFICER for now as cleared for regular diet prior to ARU on admission 2. Neuro- hx of cervicothoracic syrinx with worsening weakness in setting of possible polymyalgia rheumatic flair s/p IV solumedrol -f/u neurology and neuro-surgery, patient declining neurosurgical intervention at this time -tremor, c/u primidone 3. Cardiac- chronic diastolic CHF, daily weights, and fluid restrict, lasix recently d/c'd in setting of elevated BUN, renal consulted to help with fluid status, diuretic management per renal, currently receiving torsemide -HTN c/u BP meds -recent Aflutter, off AC due to GI bleed and hematuria- on ASA 4. Resp- hx of LIANNA on CPAP, s/p course of Zosyn for possible HAP vs aspiration PNA- cleared by speech for regular diet, monitor for infection -c/u combivent and incentive spirometry 5. GI- s/p recent endoscopy +non-bleeding internal hemorrhoids, diverticulitis, and polyps removed- f/u GI outpatient -+ C diff, on difficid, d/c'd omeprazole, patient clinically stable and diarrhea improving -drop in Hgb probably due to GI bleed, patient reporting he was noted to have some blood with wiping, will order preparation H suppository as patient has int ernal hemorrhoids which may be slowly bleeding now that he has had diarrheal infection 6. Endo- hx fo DM c/u insulin and ISS, adjust prn 7. Psych- hx of depression c/u zoloft -atarax 10mg bid 8. DVT ppx- lovenox 9. - BPH c/u flomax, monitor for hematuria 10. Heme- iron deficiency anemia c/u iron supplements, recent blood loss due to hematuria and gi bleed- -Hgb 7.5, patient asymptomatic, however receiving blood transfusion today -FOBT ordered, patient with known h of GI bleed and recent endoscopic work-up 11. Dispo- 11-28-20 to home, progressing towards goals Allergies Coded Allergies: lisinopril (Verified Adverse Reaction, Intermediate, HYPOTENSION, 10/21/20) metformin (Verified Adverse Reaction, Intermediate, LOWERS KIDNEY FUNCTON, 10/21/20) finasteride (Verified Adverse Reaction, Unknown, DIZZINESS, 10/21/20) Vital Signs Vital Signs Date Time Temp Pulse Resp B/P (MAP) Pulse Ox O2 Delivery O2 Flow Rate FiO2 11/20/20 06:03 96.0 69 20 158/70 (99) 98 NIPPV (BIPAP/CPAP) Laboratory Data CBC/BMP Laboratory Tests 11/20/20 06:33 Labs 24H Laboratory Tests 2 11/19/20 11:23: Bedside Glucose (Misc Panel) 156H 11/19/20 16:26: Bedside Glucose (Misc Panel) 153H 11/19/20 20:21: Bedside Glucose (Misc Panel) 150H 11/20/20 05:54: Bedside Glucose (Misc Panel) 108 11/20/20 06:33: Immature Granulocyte % (Auto) 1.3, Neutrophils (%) (Auto) 85.4H, Lymphocytes (%) (Auto) 7.1L, Monocytes (%) (Auto) 5.1, Eosinophils (%) (Auto) 0.8, Basophils (%) (Auto) 0.3, Neutrophils # (Auto) 10.2H, Lymphocytes # (Auto) 0.9L, Monocytes # (Auto) 0.6, Eosinophils # (Auto) 0.1, Basophils # (Auto) 0.0, Nucleated Red Blood Cells % (auto) 0.2H, Anion Gap 10, Glomerular Filtration Rate > 60.0, Calcium Level 7.9L, Phosphorus Level 3.3#, Magnesium Level 2.0, Albumin 2.2L Microbiology Microbiology 11/19/20 Stool Occult Blood (LINDA) - Final, Complete Current Medications Current Medications Current Medications Medications (Trade) Dose Ordered Sig/Imelda Route PRN Reason Start Time Stop Time Status Last Admin Dose Admin Acetaminophen (Tylenol Tab) 650 mg Q4HP PRN PO fever/MILD PAIN (PS 1-4) 11/08/20 13:35 Albuterol/ Ipratropium (Combivent Respimat 100-20mcg) 1 puff RTID INH 11/08/20 20:00 11/20/20 07:26 Allopurinol (Zyloprim) 100 mg DAILY PO 11/09/20 09:00 11/19/20 08:50 Amlodipine Besylate (Norvasc) 5 mg DAILY PO 11/14/20 09:00 11/19/20 08:51 Amlodipine Besylate (Norvasc) 10 mg DAILY PO 11/09/20 09:00 11/13/20 19:53 DC 11/13/20 09:21 Artificial Tears (Akwa Tears) 2 drop TID OU 11/08/20 16:00 11/19/20 21:48 Aspirin (Ecotrin) 81 mg DAILY PO 11/09/20 09:00 11/19/20 08:50 Bisacodyl (Dulcolax Tab) 5 mg DAILYPRN PRN PO CONSTIPATION 11/08/20 13:35 11/10/20 16:06 DC Darbepoetin Paulo (Aranesp) 100 mcg Mondragon@09 SC 11/17/20 21:45 11/17/20 23:45 Dextrose (Dextrose 50%) 25 ml ASDIRECTED PRN IV SEE LABEL COMMENTS 11/08/20 13:35 Docusate Sodium (Colace) 100 mg BID PO 11/08/20 21:00 11/10/20 16:06 DC 11/09/20 20:43 Enoxaparin Sodium (Lovenox) 40 mg DAILY SC 11/09/20 09:00 11/19/20 08:52 Ferrous Sulfate (Ferrous Sulfate) 325 mg BID PO 11/08/20 21:00 11/19/20 21:48 Fidaxomicin (Dificid) 200 mg BID PO 11/16/20 09:00 11/26/20 08:59 11/19/20 21:46 Furosemide (Lasix) 40 mg BID@,17 PO 11/14/20 09:00 11/18/20 10:27 DC 11/18/20 08:58 Furosemide (Lasix) 40 mg DAILY PO 11/09/20 09:00 11/10/20 16:06 DC 11/10/20 07:59 Glucagon (Glucagon) 1 mg ASDIRECTED PRN SC SEE LABEL COMMENTS 11/08/20 13:35 Glucose (Glucose) 16 GM ASDIRECTED PRN PO SEE LABEL COMMENTS 11/08/20 13:35 Guaifenesin (Robitussin Tab) 400 mg BID PO 11/08/20 21:00 11/19/20 21:46 Home Med (Med Rec Complete!) ASDIRECTED XX 11/08/20 15:20 11/08/20 15:53 DC Hydroxyzine HCl (Atarax) 10 mg BID PO 11/13/20 14:00 11/19/20 21:47 Insulin Detemir (Levemir Insulin) 25 units DAILY SC 11/09/20 09:00 11/19/20 08:51 Insulin Human Lispro (HumaLOG INSULIN) SEE PROTOCOL TABLE AC SC 11/08/20 17:30 11/19/20 18:11 Insulin Human Lispro (HumaLOG INSULIN) SEE PROTOCOL TABLE QHS SC 11/08/20 21:00 11/09/20 08:44 DC Isosorbide Dinitrate (Isordil) 20 mg Q6H PO 11/08/20 18:00 11/20/20 05:34 Lactobacillus Acidophilus (Bacid) 1 ea BID PO 11/13/20 21:00 11/19/20 21:46 Lactobacillus Acidophilus (Bacid) 1 ea TID PO 11/08/20 16:00 11/13/20 13:11 DC 11/13/20 09:20 Multivitamins (Theragram-M) 1 tab DAILY PO 11/09/20 09:00 11/19/20 08:50 Nitroglycerin (Nitrostat (1/ 150)) 0.4 mg Q5MP PRN SL CHEST PAIN 11/08/20 13:35 Omeprazole (PriLOSEC) 20 mg DAILY PO 11/09/20 09:00 11/11/20 11:03 DC 11/11/20 09:39 Omeprazole (PriLOSEC) 40 mg DAILY PO 11/16/20 09:00 11/19/20 08:51 Ondansetron HCl (Zofran Odt) 4 mg Q6HP PRN PO NAUSEA OR VOMITING 11/16/20 04:00 11/16/20 12:27 Phenylephrine HCl (Preparation H Supp) 1 sup BID NJ 11/19/20 21:00 11/19/20 21:00 Potassium Chloride (Micro-K Extencaps) 10 meq BID PO 11/13/20 21:00 11/19/20 21:47 Primidone (Mysoline) 25 mg BID PO 11/08/20 21:00 11/19/20 21:47 Rosuvastatin Calcium (Crestor) 20 mg QHS PO 11/08/20 21:00 11/19/20 21:46 Senna (Senokot) 1 tab QHS PO 11/08/20 21:00 11/10/20 16:06 DC 11/09/20 20:43 Sertraline HCl (Zoloft) 25 mg QAM PO 11/09/20 09:00 11/19/20 08:50 Tamsulosin HCl (Flomax) 0.4 mg QHS PO 11/08/20 21:00 11/19/20 21:48 Torsemide (Demadex) 30 mg BID@, PO 11/18/20 17:00 11/19/20 11:25 DC 11/19/20 08:50 Torsemide (Demadex) 40 mg BID@, PO 11/19/20 17:00 11/19/20 18:11 Vancomycin HCl (First-Vancomycin 50(Firvanq)- 250mg/5ml) 125 mg Q6H PO 11/10/20 18:00 11/16/20 04:01 DC 11/15/20 23:45 Vitamin D (Vitamin D) 1,000 units DAILY PO 11/09/20 09:00 11/19/20 08:50 LV HEREDIA MD November 20, 2020 08:21
--- NOTE | 2020-11-20 08:22 | IPNPDOC ---
PM&R Progress Note DATE OF SERVICE: November 20, 2020 Sql Ssis Developer Progress Note Subjective: Patient stating he feels good and continues to get stronger. He is working on getting in and out of bed using the leg lift. He feels he will be able to go h ome from here. REVIEW OF SYSTEMS: The following is a completed review of systems and has been reviewed. Review of systems otherwise unremarkable. PAIN: Patient self reports no pain EYES: No recent vision changes EARS, NOSE, & THROAT: No throat pain, or dysphagia, or rhinorrhea CARDIOVASCULAR: Denies chest pain or palpitations PULMONARY: Denies shortness of breath GASTROINTESTINAL: +diarrhea (improving) GENITOURINARY: +intermittent hematuria (not complaining of this while on ARU) MUSCULOSKELETAL: generalized weakness NEUROLOGICAL: denies paresthesias HEMATOLOGICAL: +anemia SKIN: denies rash PSYCHIATRIC: Unremarkable All other review of systems found to be negative. PHYSICAL EXAMINATION: VITAL SIGNS: Please see below. GENERAL: Pleasant and cooperative. No acute distress. HEENT: PERRL. Extraocular movements intact. Clear conjunctiva CARDIOVASCULAR: Regular rate and rhythm. No murmurs, rubs, or gallops LUNGS: Clear to auscultation bilaterally. No wheezes. No rhonchi ABDOMEN: Soft, nontender, mildly distended. Positive bowel sounds. NEUROLOGICAL: Alert and oriented times three. Cranial nerves II through XII grossly intact. Sensation grossly intact +babinski bilat EXTREMITIES: 5\5 strength bilateral upper extremities. 5\5 strength right lower extremity. 5/5 strength in left lower extremity. +bilat LE edema (improving) SKIN: no sacrum ulcers ASSESSMENT:70-year-old M with past medical history of syringomyelia who presents status post worsening weakness in setting of possible polymyalgia rheumatica flair and encephalopathy due to PNA and UTI. PLAN: 1. Rehab- PT/OT- advance mobility and ADL, strengthen/stretch/maintain ROM all 4 limbs -will defer EXTERN for now as cleared for regular diet prior to ARU on admission 2. Neuro- hx of cervicothoracic syrinx with worsening weakness in setting of possible polymyalgia rheumatic flair s/p IV solumedrol -f/u neurology and neuro-surgery, patient declining neurosurgical intervention at this time -tremor, c/u primidone 3. Cardiac- chronic diastolic CHF, daily weights, and fluid restrict, renal consulted to help with fluid status, diuretic management per renal, currently receiving torsemide -HTN c/u BP meds -recent Aflutter, off AC due to GI bleed and hematuria- on ASA 4. Resp- hx of LIANNA on CPAP, s/p course of Zosyn for possible HAP vs aspiration PNA- cleared by speech for regular diet, monitor for infection -c/u combivent and incentive spirometry 5. GI- s/p recent endoscopy +non-bleeding internal hemorrhoids, diverticulitis, and polyps removed- f/u GI outpatient -+ C diff, on difficid, d/c'd omeprazole, patient clinically stable and diarrhea improving -drop in Hgb probably due to GI bleed, patient reporting he was noted to have some blood with wiping, ordered preparation H suppository as patient has inter nal hemorrhoids which may be slowly bleeding now that he has had diarrheal infection- c/u to monitor HH, f/u GI on discharge, had recent in-house endoscopic work-up 6. Endo- hx fo DM c/u insulin and ISS, adjust prn 7. Psych- hx of depression c/u zoloft -atarax 10mg bid 8. DVT ppx- lovenox 9. - BPH c/u flomax, monitor for hematuria 10. Heme- iron deficiency anemia c/u iron supplements, recent blood loss due to hematuria and gi bleed- -s/p 1 unit prbc -FOBT +, patient with known h of GI bleed and recent endoscopic work-up, hemodynamically stable 11. Dispo- 11-28-20 to home, progressing towards goals Allergies Coded Allergies: lisinopril (Verified Adverse Reaction, Intermediate, HYPOTENSION, 10/21/20) metformin (Verified Adverse Reaction, Intermediate, LOWERS KIDNEY FUNCTON, 10/21/20) finasteride (Verified Adverse Reaction, Unknown, DIZZINESS, 10/21/20) Vital Signs Vital Signs Date Time Temp Pulse Resp B/P (MAP) Pulse Ox O2 Delivery O2 Flow Rate FiO2 11/20/20 06:03 96.0 69 20 158/70 (99) 98 NIPPV (BIPAP/CPAP) Laboratory Data CBC/BMP Laboratory Tests 11/20/20 06:33 Labs 24H Laboratory Tests 2 11/19/20 11:23: Bedside Glucose (Misc Panel) 156H 11/19/20 16:26: Bedside Glucose (Misc Panel) 153H 11/19/20 20:21: Bedside Glucose (Misc Panel) 150H 11/20/20 05:54: Bedside Glucose (Misc Panel) 108 11/20/20 06:33: Immature Granulocyte % (Auto) 1.3, Neutrophils (%) (Auto) 85.4H, Lymphocytes (%) (Auto) 7.1L, Monocytes (%) (Auto) 5.1, Eosinophils (%) (Auto) 0.8, Basophils (%) (Auto) 0.3, Neutrophils # (Auto) 10.2H, Lymphocytes # (Auto) 0.9L, Monocytes # (Auto) 0.6, Eosinophils # (Auto) 0.1, Basophils # (Auto) 0.0, Nucleated Red Blood Cells % (auto) 0.2H, Anion Gap 10, Glomerular Filtration Rate > 60.0, Calcium Level 7.9L, Phosphorus Level 3.3#, Magnesium Level 2.0, Albumin 2.2L Microbiology Microbiology 11/19/20 Stool Occult Blood (LINDA) - Final, Complete Current Medications Current Medications Current Medications Medications (Trade) Dose Ordered Sig/Imelda Route PRN Reason Start Time Stop Time Status Last Admin Dose Admin Acetaminophen (Tylenol Tab) 650 mg Q4HP PRN PO fever/MILD PAIN (PS 1-4) 11/08/20 13:35 Albuterol/ Ipratropium (Combivent Respimat 100-20mcg) 1 puff RTID INH 11/08/20 20:00 11/20/20 07:26 Allopurinol (Zyloprim) 100 mg DAILY PO 11/09/20 09:00 11/19/20 08:50 Amlodipine Besylate (Norvasc) 5 mg DAILY PO 11/14/20 09:00 11/19/20 08:51 Amlodipine Besylate (Norvasc) 10 mg DAILY PO 11/09/20 09:00 11/13/20 19:53 DC 11/13/20 09:21 Artificial Tears (Akwa Tears) 2 drop TID OU 11/08/20 16:00 11/19/20 21:48 Aspirin (Ecotrin) 81 mg DAILY PO 11/09/20 09:00 11/19/20 08:50 Bisacodyl (Dulcolax Tab) 5 mg DAILYPRN PRN PO CONSTIPATION 11/08/20 13:35 11/10/20 16:06 DC Darbepoetin Paulo (Aranesp) 100 mcg Mondragon@09 SC 11/17/20 21:45 11/17/20 23:45 Dextrose (Dextrose 50%) 25 ml ASDIRECTED PRN IV SEE LABEL COMMENTS 11/08/20 13:35 Docusate Sodium (Colace) 100 mg BID PO 11/08/20 21:00 11/10/20 16:06 DC 11/09/20 20:43 Enoxaparin Sodium (Lovenox) 40 mg DAILY SC 11/09/20 09:00 11/19/20 08:52 Ferrous Sulfate (Ferrous Sulfate) 325 mg BID PO 11/08/20 21:00 11/19/20 21:48 Fidaxomicin (Dificid) 200 mg BID PO 11/16/20 09:00 11/26/20 08:59 11/19/20 21:46 Furosemide (Lasix) 40 mg BID@,17 PO 11/14/20 09:00 11/18/20 10:27 DC 11/18/20 08:58 Furosemide (Lasix) 40 mg DAILY PO 11/09/20 09:00 11/10/20 16:06 DC 11/10/20 07:59 Glucagon (Glucagon) 1 mg ASDIRECTED PRN SC SEE LABEL COMMENTS 11/08/20 13:35 Glucose (Glucose) 16 GM ASDIRECTED PRN PO SEE LABEL COMMENTS 11/08/20 13:35 Guaifenesin (Robitussin Tab) 400 mg BID PO 11/08/20 21:00 11/19/20 21:46 Home Med (Med Rec Complete!) ASDIRECTED XX 11/08/20 15:20 11/08/20 15:53 DC Hydroxyzine HCl (Atarax) 10 mg BID PO 11/13/20 14:00 11/19/20 21:47 Insulin Detemir (Levemir Insulin) 25 units DAILY SC 11/09/20 09:00 11/19/20 08:51 Insulin Human Lispro (HumaLOG INSULIN) SEE PROTOCOL TABLE AC SC 11/08/20 17:30 11/19/20 18:11 Insulin Human Lispro (HumaLOG INSULIN) SEE PROTOCOL TABLE QHS SC 11/08/20 21:00 11/09/20 08:44 DC Isosorbide Dinitrate (Isordil) 20 mg Q6H PO 11/08/20 18:00 11/20/20 05:34 Lactobacillus Acidophilus (Bacid) 1 ea BID PO 11/13/20 21:00 11/19/20 21:46 Lactobacillus Acidophilus (Bacid) 1 ea TID PO 11/08/20 16:00 11/13/20 13:11 DC 11/13/20 09:20 Multivitamins (Theragram-M) 1 tab DAILY PO 11/09/20 09:00 11/19/20 08:50 Nitroglycerin (Nitrostat (1/ 150)) 0.4 mg Q5MP PRN SL CHEST PAIN 11/08/20 13:35 Omeprazole (PriLOSEC) 20 mg DAILY PO 11/09/20 09:00 11/11/20 11:03 DC 11/11/20 09:39 Omeprazole (PriLOSEC) 40 mg DAILY PO 11/16/20 09:00 11/19/20 08:51 Ondansetron HCl (Zofran Odt) 4 mg Q6HP PRN PO NAUSEA OR VOMITING 11/16/20 04:00 11/16/20 12:27 Phenylephrine HCl (Preparation H Supp) 1 sup BID CO 11/19/20 21:00 11/19/20 21:00 Potassium Chloride (Micro-K Extencaps) 10 meq BID PO 11/13/20 21:00 11/19/20 21:47 Primidone (Mysoline) 25 mg BID PO 11/08/20 21:00 11/19/20 21:47 Rosuvastatin Calcium (Crestor) 20 mg QHS PO 11/08/20 21:00 11/19/20 21:46 Senna (Senokot) 1 tab QHS PO 11/08/20 21:00 11/10/20 16:06 DC 11/09/20 20:43 Sertraline HCl (Zoloft) 25 mg QAM PO 11/09/20 09:00 11/19/20 08:50 Tamsulosin HCl (Flomax) 0.4 mg QHS PO 11/08/20 21:00 11/19/20 21:48 Torsemide (Demadex) 30 mg BID@, PO 11/18/20 17:00 11/19/20 11:25 DC 11/19/20 08:50 Torsemide (Demadex) 40 mg BID@, PO 11/19/20 17:00 11/19/20 18:11 Vancomycin HCl (First-Vancomycin 50(Firvanq)- 250mg/5ml) 125 mg Q6H PO 11/10/20 18:00 11/16/20 04:01 DC 11/15/20 23:45 Vitamin D (Vitamin D) 1,000 units DAILY PO 11/09/20 09:00 11/19/20 08:50 LV HEREDIA MD November 20, 2020 08:22
[2020-11-20] MEDS: LEVEMIR (INSULIN DETEMIR) 1 UNITS/0.01ML SC SCH (08:55)
[2020-11-20] MEDS: HumaLOG INSULIN (NovoLOG) PER UNIT SC SCH ×3 (08:56→18:10)
[2020-11-20] MEDS: VITAMIN D 1,000 INTERNATIONAL UNITS TABLET PO SCH (09:32)
[2020-11-20] MEDS: MULTIVITAMINS/MINERALS THERAP 1 TAB PO SCH (09:32)
[2020-11-20] MEDS: ASPIRIN 81MG ENTERIC TABLET PO SCH (09:32)
[2020-11-20] MEDS: ENOXAPARIN 40MG/0.4ML SYRINGE (J1650 PER 10MG) SC SCH (09:32)
[2020-11-20] MEDS: OMEPRAZOLE 20 MG CAP PO SCH (09:32)
[2020-11-20] MEDS: FERROUS SULFATE 325MG TAB PO SCH ×2 (09:32→20:25)
[2020-11-20] MEDS: POTASSIUM CHLORIDE 10 MEQ SR TABLET PO SCH ×2 (09:32→20:25)
[2020-11-20] MEDS: guaiFENesin 200 MG TAB PO SCH ×2 (09:33→20:24)
[2020-11-20] MEDS: LACTOBACILLUS ACIDOPHILUS CAP (BACID) PO SCH ×2 (09:33→20:24)
[2020-11-20] MEDS: TORSEMIDE 20 MG TAB PO SCH ×2 (09:33→18:09)
[2020-11-20] MEDS: allopurinoL 100 MG TAB PO SCH (09:33)
[2020-11-20] MEDS: FIDAXOMICIN 200 MG TAB (DIFICID) PO SCH ×2 (09:33→20:24)
[2020-11-20] MEDS: hydrOXYzine 10 MG TAB PO SCH ×2 (09:33→20:25)
[2020-11-20] MEDS: PRIMIDONE 25MG PER 1/2 TABLET PO SCH ×2 (09:33→20:24)
[2020-11-20] MEDS: SERTRALINE HCL 25 MG TABLET PO SCH (09:33)
[2020-11-20] MEDS: PREPARATION H SUPP (HEMORRHOID) PR SCH ×2 (09:34→20:24)
[2020-11-20] MEDS: amLODIPine 5 MG TAB PO SCH (09:35)
[2020-11-20] MEDS: POLYVINYL ALCOHOL OPHTH SOLN 15 ML(LIQUITEARS) OU SCH ×3 (09:35→20:26)
[2020-11-20] MEDS: REMEDY PHYTOPLEX Z-GUARD PASTE 113GM TUBE (FROM STOREROOM PRODUCT) TOP SCH ×3 (09:36→20:26)
--- NOTE | 2020-11-20 12:44 | IPN ---
PROGRESS NOTE DATE: 11/20/2020 SUBJECTIVE: The patient was seen and examined at the bedside today morning. His torsemide dose was increased to 40 mg p.o. twice a day. He reports that he made more urine yesterday. He was also given 1 unit of PRBC transfusion for anemia. His swelling is getting better. OBJECTIVE: VITAL SIGNS: Temperature is 96 degrees Fahrenheit, blood pressure is 158/70, pulse is 69, respiratory rate of 20, saturating 98% on room air. INTAKE AND OUTPUT: Urine output recorded as 1.3 liters yesterday, 925 ml so far today. Weight on the bed scale is 103.5 kg which is less than his weight yesterday. GENERAL APPEARANCE: Patient is awake, alert and oriented x3, sitting up on the sofa in no apparent distress. HEAD AND NECK: Extraocular muscles intact. Pupils equally round and reactive to light. Mucous membranes are moist. NECK: Supple. There is no JVD. CARDIOVASCULAR: S1 and S2, regular rate, 2+ edema of the bilateral lower extremities. Upper extremity edema is improved. RESPIRATORY: Clear to auscultation bilaterally. ABDOMEN: Soft, positive bowel sounds, nontender. No organomegaly. MUSCULOSKELETAL: Edema of the extremities is improving, otherwise no clubbing or cyanosis. HIDE SELECTOR: Patient has syringomyelia, he has difficulty walking. He was examined from the recliner sofa. LABORATORY DATA: CBC showed a WBC of 11.9, hemoglobin 9.4, platelets are 282,000. BMP showed a sodium of 139, potassium is 4, chloride is 104, bicarbonate is 25, BUN 38, creatinine is 0.9, it was 1.1 yesterday. Phosphorus 3.3. CURRENT INPATIENT ADMISSIONS: Patient's medications were all reviewed by myself. He is currently on torsemide 40 mg p.o. twice a day. No other significant change in the medications today as compared with yesterday. ASSESSMENT AND PLAN: 1. Chronic kidney disease Stage III. Creatinine continues to improve with improvement in the volume status. Continue the diuretic. 2. Acute decompensated diastolic congestive heart failure. He was not diuresing well. He got increased dose of torsemide and he was also given blood which helped improve his diuresis. Continue torsemide 40 mg p.o. twice a day. 3. Hypertension, continue current antihypertensive regimen. 4. Anemia and chronic kidney disease. Patient was given 1 unit of PRBC transfusion. He was also given a dose of Aranesp. If his hemoglobin stays below 9 then he will be given another dose over the weekend.
--- NOTE | 2020-11-20 13:05 | IPNPDOC ---
Text Note Date of Service The patient was seen on 11/20/20. NOTE Patient feels good and denies complaints PHYSICAL EXAM: VITAL SIGNS: SEE BELOW GENERAL: NAD, sitting up at bedside chair. AAOx3 HEENT: PERRLA, EOM intact, poor dentition, AT/NC LUNGS: CTAB. No wheezing, rales, or rhonchi. mild b/l bases fine crakles HEART: S1, S2. Sinus rhythm currently . No M/R/G ABDOMEN: Soft, nontender, nondistended, and obese. EXTREMITIES: No cyanosis, clubbing. +1-2 pitting edema b/l lower ext. NEUROLOGIC: Generalized weakness 4/5 in lower ext, 5/5 strength in upper ext. No focal deficits, CN 2-12 intact. Sensory and motor intact Assessment and plan: 70-year-old male with history of syringomyelia admitted to ARU for continued rehab after hospitalization for polymyalgia rheumatica, RML/RLL aspiration vs. HCAP , UTI. 1: Weakness likely 2/2 to polymyalgia rheumatica in the setting of chronic syringomyelia: C/w PT/OT and tx for issues below 2: Polymyalgia rheumatica in the setting of chronic syringomyelia: right-sided deficit improved with IV [id number] 5 total doses, cont PT/OT. Received full workup with repeat MRI of the brain and lumbar puncture, all of which had been unchanged and negative for any meningeal infection. 3: Acute on chronic anemia 2/2 recurrent gross hematuria and status post history of recent GI bleed. H/h stable with mild downward trend. S/p EGD/colonoscopy. Neg biopsies. Continue to monitor closely, regular CBC 4: Lower ext swelling c/w torsemide daily . Monitor u/o, edema 5: Urinary retention poss 2/2 to BPH: C/w flomax, finasteride 6: DM type II worsened by steroids : c/w levemir dose, ISS AC, consistent carb diet, FS AC/HS 7: Enterococcus urinary tract infection in the setting of recent gross hematuria with clemens catheter due to urine retention-treated : completed 3 days of cipro on 11/04/20 8: Right middle and right lower lobe aspiration vs HCAP- resolved DVT px : lovenox Dispo. We will continue to follow him regularly while in ARU. Goal: home with family. VS,Fishbone, I+O VS, Fishbone, I+O Laboratory Tests 11/20/20 06:33 Vital Signs Date Time Temp Pulse Resp B/P (MAP) Pulse Ox O2 Delivery O2 Flow Rate FiO2 11/20/20 12:32 152/67 11/20/20 09:35 81 11/20/20 06:03 96.0 20 98 NIPPV (BIPAP/CPAP) I&O- Last 24 Hours up to 6 AM 11/20/20 05:59 Intake Total 1210 ml Output Total 2075 ml Balance -865 ml GARTH REYES MD November 20, 2020 13:05
[2020-11-20 14:00] VITALS: BP 147/66
[2020-11-20] MEDS: ROSUVASTATIN 10 MG TAB (CRESTOR) PO SCH (20:24)
[2020-11-20] MEDS: TAMSULOSIN 0.4 MG CAP PO SCH (20:25)
[2020-11-20 22:00] VITALS: BP 130/61
[2020-11-21] MEDS: ISOSORBIDE DIN. (ISORDIL) 20 MG TAB PO SCH ×4 (05:39→23:34)
[2020-11-21 06:16] VITALS: BP 159/77
[2020-11-21] MEDS: COMBIVENT RESPIMAT 100-20MCG INHALER 4GM INH SCH ×3 (07:16→20:23)
[2020-11-21] MEDS: HumaLOG INSULIN (NovoLOG) PER UNIT SC SCH ×3 (07:30→18:14)
[2020-11-21] MEDS: guaiFENesin 200 MG TAB PO SCH ×3 (09:00→21:00)
[2020-11-21] MEDS: POLYVINYL ALCOHOL OPHTH SOLN 15 ML(LIQUITEARS) OU SCH ×3 (09:00→21:48)
[2020-11-21] MEDS: allopurinoL 100 MG TAB PO SCH ×2 (09:00→09:57)
[2020-11-21] MEDS: LEVEMIR (INSULIN DETEMIR) 1 UNITS/0.01ML SC SCH (09:00)
[2020-11-21] MEDS: PREPARATION H SUPP (HEMORRHOID) PR SCH ×2 (09:00→21:48)
[2020-11-21] MEDS: PRIMIDONE 25MG PER 1/2 TABLET PO SCH ×2 (09:56→21:48)
[2020-11-21] MEDS: MULTIVITAMINS/MINERALS THERAP 1 TAB PO SCH (09:57)
[2020-11-21] MEDS: VITAMIN D 1,000 INTERNATIONAL UNITS TABLET PO SCH (09:57)
[2020-11-21] MEDS: OMEPRAZOLE 20 MG CAP PO SCH (09:57)
[2020-11-21] MEDS: SERTRALINE HCL 25 MG TABLET PO SCH (09:57)
[2020-11-21] MEDS: hydrOXYzine 10 MG TAB PO SCH ×2 (09:57→21:49)
[2020-11-21] MEDS: FIDAXOMICIN 200 MG TAB (DIFICID) PO SCH ×2 (09:57→21:49)
[2020-11-21] MEDS: ASPIRIN 81MG ENTERIC TABLET PO SCH (09:57)
[2020-11-21] MEDS: ENOXAPARIN 40MG/0.4ML SYRINGE (J1650 PER 10MG) SC SCH (09:57)
[2020-11-21] MEDS: LACTOBACILLUS ACIDOPHILUS CAP (BACID) PO SCH ×2 (09:57→21:48)
[2020-11-21] MEDS: FERROUS SULFATE 325MG TAB PO SCH ×2 (09:57→21:49)
[2020-11-21] MEDS: POTASSIUM CHLORIDE 10 MEQ SR TABLET PO SCH ×2 (09:58→21:49)
[2020-11-21] MEDS: amLODIPine 5 MG TAB PO SCH (09:58)
[2020-11-21] MEDS: TORSEMIDE 20 MG TAB PO SCH ×2 (09:58→18:14)
[2020-11-21] MEDS: REMEDY PHYTOPLEX Z-GUARD PASTE 113GM TUBE (FROM STOREROOM PRODUCT) TOP SCH ×3 (09:59→21:54)
--- NOTE | 2020-11-21 12:03 | IPNPDOC ---
Text Note Date of Service The patient was seen on 11/21/20. NOTE Patient feels good and denies complaints PHYSICAL EXAM: GENERAL: NAD, AAOx3 HEENT: PERRLA, EOM intact, poor dentition, AT/NC LUNGS: CTAB. No wheezing, rales, or rhonchi. mild b/l bases fine crakles HEART: S1, S2. Sinus rhythm currently . No M/R/G ABDOMEN: Soft, nontender, nondistended, and obese. EXTREMITIES: No cyanosis, clubbing. +1-2 pitting edema b/l lower ext. NEUROLOGIC: Generalized weakness 4/5 in lower ext, 5/5 strength in upper ext. No focal deficits, CN 2-12 intact. Sensory and motor intact Assessment and plan: 70-year-old male with history of syringomyelia admitted to ARU for continued rehab after hospitalization for polymyalgia rheumatica, RML/RLL aspiration vs. HCAP , UTI. 1: Weakness likely 2/2 to polymyalgia rheumatica in the setting of chronic syringomyelia: C/w PT/OT and tx for issues below 2: Polymyalgia rheumatica in the setting of chronic syringomyelia: right-sided deficit improved with IV Opri-Xrldae-qujmizawm 5 total doses, cont PT/OT. Received full workup with repeat MRI of the brain and lumbar puncture, all of which had been unchanged and negative for any meningeal infection. 3: Acute on chronic anemia 2/2 recurrent gross hematuria and status post history of recent GI bleed. H/h stable with mild downward trend. S/p EGD/colonoscopy. Neg biopsies. Continue to monitor closely, regular CBC 4: Lower ext swelling c/w torsemide daily . Monitor u/o, edema 5: Urinary retention poss 2/2 to BPH: C/w flomax, finasteride 6: DM type II worsened by steroids : c/w levemir dose, ISS AC, consistent carb diet, FS AC/HS 7: Enterococcus urinary tract infection in the setting of recent gross hematuria with clemens catheter due to urine retention-treated : completed 3 days of cipro on 11/04/20 8: Right middle and right lower lobe aspiration vs HCAP- resolved DVT px : lovenox Dispo. As per ARU. Goal: home with family. VS,Fishbone, I+O VS, Fishbone, I+O Vital Signs Date Time Temp Pulse Resp B/P (MAP) Pulse Ox O2 Delivery O2 Flow Rate FiO2 11/21/20 09:58 88 140/65 11/21/20 06:16 97.9 18 99 NIPPV (BIPAP/CPAP) I&O- Last 24 Hours up to 6 AM 11/21/20 06:00 Intake Total 1400 ml Output Total 0 ml Balance 1400 ml GARTH REYES MD November 21, 2020 12:03
[2020-11-21 14:00] VITALS: BP 139/60
[2020-11-21 21:00] VITALS: BP 162/70
[2020-11-21] MEDS: TAMSULOSIN 0.4 MG CAP PO SCH (21:48)
[2020-11-21] MEDS: ROSUVASTATIN 10 MG TAB (CRESTOR) PO SCH (21:48)
--- NOTE | 2020-11-22 00:24 | IPN ---
NEPHROLOGY PROGRESS NOTE DATE: 11/21/2020 SUBJECTIVE: Patient was seen and examined at the bedside today morning in the rehab unit. Patient is awake and alert. He denies any active complaints. He reports that his edema is getting better. He is able to walk more now. He is tolerating the current diuretic dose. OBJECTIVE: VITAL SIGNS: Temperature 97.8 degrees Fahrenheit, blood pressure 139/60, pulse 91, respiratory rate 18, saturating 95% on room air. INTAKE/OUTPUT: Urine output recorded as 925 mL yesterday and 1250 mL so far today since overnight. Weight in the bed scale is 103.4 kg. PHYSICAL EXAMINATION: GENERAL: Patient is awake, alert, oriented x3, sitting up. HEAD/NECK: Extraocular muscles intact. Pupils equally round and reactive to light. Mucous membranes are moist. Neck is supple. There is no JVD. CVS: S1, S2, regular rate. 2+ edema of lower extremities and he has compression bandages on the lower extremities now. RESPIRATORY: Chest is clear to auscultation bilaterally. Bilateral equal air entry. No rales or rhonchi. ABDOMEN: Soft, obese, positive bowel sounds, nontender. No organomegaly. MUSCULOSKELETAL: No clubbing or cyanosis. Pulses are 2+. GIS PHYSICAL SCIENTIST: Patient has syringomyelia and he has difficulty with his gait. Otherwise power is 5/5 in bilateral upper extremities . LAB REVIEW: CBC from yesterday with hemoglobin 9.4 and BMP is also from yesterday with creatinine of 0.9. CURRENT INPATIENT MEDICATIONS: Patient's medications were all reviewed by myself. There is no significant change in the medications today as compared with yesterday. ASSESSMENT AND PLAN: 1. Chronic kidney disease stage 2: Renal function is stable and improving with diuresis. Latest creatinine is better than his baseline. Continue current regimen. 2. Acute decompensated diastolic congestive heart failure: Patient is on Torsemide 40 mg p.o. twice a day, which he is tolerating well. His edema is getting better. Check renal profile in the morning. 3. Anemia: Patient recently got PRBC transfusion, hemoglobin was stable. Check CBC in the morning.
[2020-11-22] MEDS: ISOSORBIDE DIN. (ISORDIL) 20 MG TAB PO SCH ×4 (05:45→23:59)
[2020-11-22 06:00] VITALS: BP 173/77
[2020-11-22] MEDS: COMBIVENT RESPIMAT 100-20MCG INHALER 4GM INH SCH ×3 (08:00→23:40)
[2020-11-22] MEDS: allopurinoL 100 MG TAB PO SCH (09:00)
[2020-11-22] MEDS: PREPARATION H SUPP (HEMORRHOID) PR SCH ×2 (09:00→21:07)
[2020-11-22] MEDS: MULTIVITAMINS/MINERALS THERAP 1 TAB PO SCH (10:04)
[2020-11-22] MEDS: guaiFENesin 200 MG TAB PO SCH ×2 (10:04→21:00)
[2020-11-22] MEDS: ENOXAPARIN 40MG/0.4ML SYRINGE (J1650 PER 10MG) SC SCH (10:05)
[2020-11-22] MEDS: TORSEMIDE 20 MG TAB PO SCH ×2 (10:05→17:28)
[2020-11-22] MEDS: POTASSIUM CHLORIDE 10 MEQ SR TABLET PO SCH ×2 (10:05→21:07)
[2020-11-22] MEDS: LACTOBACILLUS ACIDOPHILUS CAP (BACID) PO SCH ×2 (10:06→21:07)
[2020-11-22] MEDS: VITAMIN D 1,000 INTERNATIONAL UNITS TABLET PO SCH (10:06)
[2020-11-22] MEDS: FIDAXOMICIN 200 MG TAB (DIFICID) PO SCH ×2 (10:06→21:06)
[2020-11-22] MEDS: ASPIRIN 81MG ENTERIC TABLET PO SCH (10:06)
[2020-11-22] MEDS: PRIMIDONE 25MG PER 1/2 TABLET PO SCH ×2 (10:06→21:07)
[2020-11-22] MEDS: OMEPRAZOLE 20 MG CAP PO SCH (10:06)
[2020-11-22] MEDS: FERROUS SULFATE 325MG TAB PO SCH ×2 (10:06→21:07)
[2020-11-22] MEDS: SERTRALINE HCL 25 MG TABLET PO SCH (10:06)
[2020-11-22] MEDS: hydrOXYzine 10 MG TAB PO SCH ×2 (10:07→21:06)
[2020-11-22] MEDS: LEVEMIR (INSULIN DETEMIR) 1 UNITS/0.01ML SC SCH (10:07)
[2020-11-22] MEDS: HumaLOG INSULIN (NovoLOG) PER UNIT SC SCH ×3 (10:08→17:26)
[2020-11-22] MEDS: amLODIPine 5 MG TAB PO SCH ×2 (10:08→21:09)
[2020-11-22] MEDS: REMEDY PHYTOPLEX Z-GUARD PASTE 113GM TUBE (FROM STOREROOM PRODUCT) TOP SCH ×3 (10:10→21:08)
[2020-11-22] MEDS: POLYVINYL ALCOHOL OPHTH SOLN 15 ML(LIQUITEARS) OU SCH ×3 (10:11→21:08)
[2020-11-22 10:14] LABS: BASO % 0.2 % (0.0-1.0); EOS # 0.1 10^3/uL (0.0-0.5); EOS % 0.7 % (0.0-3.0); HEMATOCRIT 29.1 % (42.0-52.0); HEMOGLOBIN 9.4 g/dl (13.5-17.5); LYMPH # 0.6 10^3/uL (1.5-5.0); LYMPH % 5.8 % (24.0-44.0); MEAN CORPUSCULAR HEMOGLOBIN 31.1 pg (27.0-33.0); MEAN CORPUSCULAR HGB CONC 32.3 g/dl (32.0-36.5); MEAN CORPUSCULAR VOLUME 96.4 fl (80.0-96.0); MONO # 0.8 10^3/uL (0.0-0.8); MONO % 8.1 % (2.0-8.0); NEUTROPHILS # 8.3 10^3/uL (1.5-8.5); NEUTROPHILS % 84.5 % (36.0-66.0); PLATELET COUNT, AUTOMATED 316 10^3/uL (150-450); RED BLOOD COUNT 3.02 10^6/uL (4.30-6.10); WHITE BLOOD COUNT 9.8 10^3/uL (4.0-10.0)
--- NOTE | 2020-11-22 10:38 | IPNPDOC ---
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 REVIEW OF SYSTEMS: The following is a completed review of systems and has been reviewed. Review of systems otherwise unremarkable. PAIN: Patient self reports no pain EYES: No recent vision changes EARS, NOSE, & THROAT: No throat pain, or dysphagia, or rhinorrhea CARDIOVASCULAR: Denies chest pain or palpitations PULMONARY: Denies shortness of breath GASTROINTESTINAL: +diarrhea (resolved) GENITOURINARY: +intermittent hematuria (not complaining of this while on ARU) MUSCULOSKELETAL: generalized weakness NEUROLOGICAL: denies paresthesias HEMATOLOGICAL: +anemia SKIN: denies rash PSYCHIATRIC: Unremarkable All other review of systems found to be negative. PHYSICAL EXAMINATION: VITAL SIGNS: Please see below. GENERAL: Pleasant and cooperative. No acute distress. HEENT: PERRL. Extraocular movements intact. Clear conjunctiva CARDIOVASCULAR: Regular rate and rhythm. No murmurs, rubs, or gallops LUNGS: Clear to auscultation bilaterally. No wheezes. No rhonchi ABDOMEN: Soft, nontender, mildly distended. Positive bowel sounds. NEUROLOGICAL: Alert and oriented times three. Cranial nerves II through XII grossly intact. Sensation grossly intact +babinski bilat EXTREMITIES: 5\5 strength bilateral upper extremities. 5\5 strength right lower extremity. 5/5 strength in left lower extremity. +bilat LE edema (improving) SKIN: no sacrum ulcers ASSESSMENT:70-year-old M with past medical history of syringomyelia who presents status post worsening weakness in setting of possible polymyalgia rheumatica flair and encephalopathy due to PNA and UTI. PLAN: 1. Rehab- PT/OT- advance mobility and ADL, strengthen/stretch/maintain ROM all 4 limbs -will defer ELEMENTARY SCHOOL DIRECTOR for now as cleared for regular diet prior to ARU on admission 2. Neuro- hx of cervicothoracic syrinx with worsening weakness in setting of possible polymyalgia rheumatic flair s/p IV solumedrol -f/u neurology and neuro-surgery, patient declining neurosurgical intervention at this time -tremor, c/u primidone 3. Cardiac- chronic diastolic CHF, daily weights, and fluid restrict, renal consulted to help with fluid status, diuretic management per renal, currently receiving torsemide -HTN c/u BP meds -recent Aflutter, off AC due to GI bleed and hematuria- on ASA 4. Resp- hx of LIANNA on CPAP, s/p course of Zosyn for possible HAP vs aspiration PNA- cleared by speech for regular diet, monitor for infection -c/u combivent and incentive spirometry 5. GI- s/p recent endoscopy +non-bleeding internal hemorrhoids, diverticulitis, and polyps removed- f/u GI outpatient -+ C diff, on difficid, d/c'd omeprazole, patient clinically stable and diarrhea improving -drop in Hgb probably due to GI bleed, patient reporting he was noted to have some blood with wiping, ordered preparation H suppository as patient has internal hemorrhoids which may be slowly bleeding now that he has had diarrheal infection- c/u to monitor HH, f/u GI on discharge, had recent in-house endoscopic work-up 6. Endo- hx fo DM c/u insulin and ISS, adjust prn 7. Psych- hx of depression c/u zoloft -atarax 10mg bid 8. DVT ppx- lovenox 9. - BPH c/u flomax, monitor for hematuria 10. Heme- iron deficiency anemia c/u iron supplements, recent blood loss due to hematuria and gi bleed- -s/p 1 unit prbc -FOBT +, patient with known h of GI bleed and recent endoscopic work-up, hemodynamically stable 11. Dispo- 11-28-20 to home, progressing towards goals Allergies Coded Allergies: lisinopril (Verified Adverse Reaction, Intermediate, HYPOTENSION, 10/21/20) metformin (Verified Adverse Reaction, Intermediate, LOWERS KIDNEY FUNCTON, 10/21/20) finasteride (Verified Adverse Reaction, Unknown, DIZZINESS, 10/21/20) Vital Signs Vital Signs Date Time Temp Pulse Resp B/P (MAP) Pulse Ox O2 Delivery O2 Flow Rate FiO2 11/22/20 10:08 89 146/64 11/22/20 06:00 98.2 16 96 Room Air Laboratory Data CBC/BMP Laboratory Tests 11/22/20 09:35 Labs 24H Laboratory Tests 2 11/21/20 11:30: Bedside Glucose (Misc Panel) 181H 11/21/20 16:36: Bedside Glucose (Misc Panel) 144H 11/21/20 21:55: Bedside Glucose (Misc Panel) 201H 11/22/20 05:42: Bedside Glucose (Misc Panel) 145H 11/22/20 09:35: Immature Granulocyte % (Auto) 0.7, Neutrophils (%) (Auto) 84.5H, Lymphocytes (%) (Auto) 5.8L, Monocytes (%) (Auto) 8.1H, Eosinophils (%) (Auto) 0.7, Basophils (%) (Auto) 0.2, Neutrophils # (Auto) 8.3, Lymphocytes # (Auto) 0.6L, Monocytes # (Auto) 0.8, Eosinophils # (Auto) 0.1, Basophils # (Auto) 0.0, Nucleated Red Blood Cells % (auto) 0.0 Microbiology Microbiology 11/19/20 Stool Occult Blood (LINDA) - Final, Complete Current Medications Current Medications Current Medications Medications (Trade) Dose Ordered Sig/Imelda Route PRN Reason Start Time Stop Time Status Last Admin Dose Admin Acetaminophen (Tylenol Tab) 650 mg Q4HP PRN PO fever/MILD PAIN (PS 1-4) 11/08/20 13:35 Albuterol/ Ipratropium (Combivent Respimat 100-20mcg) 1 puff RTID INH 11/08/20 20:00 11/21/20 20:23 Allopurinol (Zyloprim) 100 mg DAILY PO 11/09/20 09:00 11/20/20 09:33 Amlodipine Besylate (Norvasc) 5 mg DAILY PO 11/14/20 09:00 11/22/20 10:08 Amlodipine Besylate (Norvasc) 10 mg DAILY PO 11/09/20 09:00 11/13/20 19:53 DC 11/13/20 09:21 Artificial Tears (Akwa Tears) 2 drop TID OU 11/08/20 16:00 11/22/20 10:11 Aspirin (Ecotrin) 81 mg DAILY PO 11/09/20 09:00 11/22/20 10:06 Bisacodyl (Dulcolax Tab) 5 mg DAILYPRN PRN PO CONSTIPATION 11/08/20 13:35 11/10/20 16:06 DC Darbepoetin Paulo (Aranesp) 100 mcg Mondragon@09 SC 11/17/20 21:45 11/17/20 23:45 Dextrose (Dextrose 50%) 25 ml ASDIRECTED PRN IV SEE LABEL COMMENTS 11/08/20 13:35 Docusate Sodium (Colace) 100 mg BID PO 11/08/20 21:00 11/10/20 16:06 DC 11/09/20 20:43 Enoxaparin Sodium (Lovenox) 40 mg DAILY SC 11/09/20 09:00 11/22/20 10:05 Ferrous Sulfate (Ferrous Sulfate) 325 mg BID PO 11/08/20 21:00 11/22/20 10:06 Fidaxomicin (Dificid) 200 mg BID PO 11/16/20 09:00 11/26/20 08:59 11/22/20 10:06 Furosemide (Lasix) 40 mg BID@ PO 11/14/20 09:00 11/18/20 10:27 DC 11/18/20 08:58 Furosemide (Lasix) 40 mg DAILY PO 11/09/20 09:00 11/10/20 16:06 DC 11/10/20 07:59 Glucagon (Glucagon) 1 mg ASDIRECTED PRN SC SEE LABEL COMMENTS 11/08/20 13:35 Glucose (Glucose) 16 GM ASDIRECTED PRN PO SEE LABEL COMMENTS 11/08/20 13:35 Guaifenesin (Robitussin Tab) 400 mg BID PO 11/08/20 21:00 11/22/20 10:04 Home Med (Med Rec Complete!) ASDIRECTED XX 11/08/20 15:20 11/08/20 15:53 DC Hydroxyzine HCl (Atarax) 10 mg BID PO 11/13/20 14:00 11/22/20 10:07 Insulin Detemir (Levemir Insulin) 25 units DAILY SC 11/09/20 09:00 11/22/20 10:07 Insulin Human Lispro (HumaLOG INSULIN) SEE PROTOCOL TABLE AC SC 11/08/20 17:30 11/22/20 10:08 Insulin Human Lispro (HumaLOG INSULIN) SEE PROTOCOL TABLE QHS SC 11/08/20 21:00 11/09/20 08:44 DC Isosorbide Dinitrate (Isordil) 20 mg Q6H PO 11/08/20 18:00 11/22/20 05:45 Lactobacillus Acidophilus (Bacid) 1 ea BID PO 11/13/20 21:00 11/22/20 10:06 Lactobacillus Acidophilus (Bacid) 1 ea TID PO 11/08/20 16:00 11/13/20 13:11 DC 11/13/20 09:20 Multivitamins (Theragram-M) 1 tab DAILY PO 11/09/20 09:00 11/22/20 10:04 Nitroglycerin (Nitrostat (1/ 150)) 0.4 mg Q5MP PRN SL CHEST PAIN 11/08/20 13:35 Omeprazole (PriLOSEC) 20 mg DAILY PO 11/09/20 09:00 11/11/20 11:03 DC 11/11/20 09:39 Omeprazole (PriLOSEC) 40 mg DAILY PO 11/16/20 09:00 11/22/20 10:06 Ondansetron HCl (Zofran Odt) 4 mg Q6HP PRN PO NAUSEA OR VOMITING 11/16/20 04:00 11/16/20 12:27 Phenylephrine HCl (Preparation H Supp) 1 sup BID VA 11/19/20 21:00 11/21/20 21:48 Potassium Chloride (Micro-K Extencaps) 10 meq BID PO 11/13/20 21:00 11/22/20 10:05 Primidone (Mysoline) 25 mg BID PO 11/08/20 21:00 11/22/20 10:06 Rosuvastatin Calcium (Crestor) 20 mg QHS PO 11/08/20 21:00 11/21/20 21:48 Senna (Senokot) 1 tab QHS PO 11/08/20 21:00 11/10/20 16:06 DC 11/09/20 20:43 Sertraline HCl (Zoloft) 25 mg QAM PO 11/09/20 09:00 11/22/20 10:06 Tamsulosin HCl (Flomax) 0.4 mg QHS PO 11/08/20 21:00 11/21/20 21:48 Torsemide (Demadex) 30 mg BID@,17 PO 11/18/20 17:00 11/19/20 11:25 DC 11/19/20 08:50 Torsemide (Demadex) 40 mg BID@,17 PO 11/19/20 17:00 11/22/20 10:05 Vancomycin HCl (First-Vancomycin 50(Firvanq)- 250mg/5ml) 125 mg Q6H PO 11/10/20 18:00 11/16/20 04:01 DC 11/15/20 23:45 Vitamin D (Vitamin D) 1,000 units DAILY PO 11/09/20 09:00 11/22/20 10:06 LV HEREDIA MD November 22, 2020 10:38
--- NOTE | 2020-11-22 10:39 | IPNPDOC ---
PM&R Progress Note DATE OF SERVICE: November 22, 2020 Associate Program Manager Progress Note Subjective: Patient states he feels good today and is requesting a letter of justification for a stair lift. He continues to state he feels he will be ready to go home from ARU. REVIEW OF SYSTEMS: The following is a completed review of systems and has been reviewed. Review of systems otherwise unremarkable. PAIN: Patient self reports no pain EYES: No recent vision changes EARS, NOSE, & THROAT: No throat pain, or dysphagia, or rhinorrhea CARDIOVASCULAR: Denies chest pain or palpitations PULMONARY: Denies shortness of breath GASTROINTESTINAL: +diarrhea (resolved) GENITOURINARY: +intermittent hematuria (not complaining of this while on ARU) MUSCULOSKELETAL: generalized weakness NEUROLOGICAL: denies paresthesias HEMATOLOGICAL: +anemia SKIN: denies rash PSYCHIATRIC: Unremarkable All other review of systems found to be negative. PHYSICAL EXAMINATION: VITAL SIGNS: Please see below. GENERAL: Pleasant and cooperative. No acute distress. HEENT: PERRL. Extraocular movements intact. Clear conjunctiva CARDIOVASCULAR: Regular rate and rhythm. No murmurs, rubs, or gallops LUNGS: Clear to auscultation bilaterally. No wheezes. No rhonchi ABDOMEN: Soft, nontender, mildly distended. Positive bowel sounds. NEUROLOGICAL: Alert and oriented times three. Cranial nerves II through XII grossly intact. Sensation grossly intact +babinski bilat EXTREMITIES: 5\5 strength bilateral upper extremities. 5\5 strength right lower extremity. 5/5 strength in left lower extremity. +bilat LE edema (improving) SKIN: no sacrum ulcers ASSESSMENT:70-year-old M with past medical history of syringomyelia who presents status post worsening weakness in setting of possible polymyalgia rheumatica flair and encephalopathy due to PNA and UTI. PLAN: 1. Rehab- PT/OT- advance mobility and ADL, strengthen/stretch/maintain ROM all 4 limbs -will defer EXECUTIVE COACH for now as cleared for regular diet prior to ARU on admission 2. Neuro- hx of cervicothoracic syrinx with worsening weakness in setting of possible polymyalgia rheumatic flair s/p IV solumedrol -f/u neurology and neuro-surgery, patient declining neurosurgical intervention at this time -tremor, c/u primidone 3. Cardiac- chronic diastolic CHF, daily weights, and fluid restrict, renal consulted to help with fluid status, diuretic management per renal, currently receiving torsemide -HTN c/u BP meds -recent Aflutter, off AC due to GI bleed and hematuria- on ASA 4. Resp- hx of LIANNA on CPAP, s/p course of Zosyn for possible HAP vs aspiration PNA- cleared by speech for regular diet, monitor for infection -c/u combivent and incentive spirometry 5. GI- s/p recent endoscopy +non-bleeding internal hemorrhoids, diverticulitis, and polyps removed- f/u GI outpatient -+ C diff, on difficid, d/c'd omeprazole, patient clinically stable and diarrhea improving -drop in Hgb probably due to GI bleed, patient reporting he was noted to have some blood with wiping, ordered preparation H suppository as patient has internal hemorrhoids which may be slowly bleeding now that he has had diarrheal infection- c/u to monitor HH, f/u GI on discharge, had recent in-house endoscopic work-up 6. Endo- hx fo DM c/u insulin and ISS, adjust prn 7. Psych- hx of depression c/u zoloft -atarax 10mg bid 8. DVT ppx- lovenox 9. - BPH c/u flomax, monitor for hematuria 10. Heme- iron deficiency anemia c/u iron supplements, recent blood loss due to hematuria and gi bleed- -s/p 1 unit prbc -FOBT +, patient with known hx of GI bleed and recent endoscopic work-up, hemodynamically stable 11. Dispo- 11-28-20 to home, progressing towards goals Allergies Coded Allergies: lisinopril (Verified Adverse Reaction, Intermediate, HYPOTENSION, 10/21/20) metformin (Verified Adverse Reaction, Intermediate, LOWERS KIDNEY FUNCTON, 10/21/20) finasteride (Verified Adverse Reaction, Unknown, DIZZINESS, 10/21/20) Vital Signs Vital Signs Date Time Temp Pulse Resp B/P (MAP) Pulse Ox O2 Delivery O2 Flow Rate FiO2 11/22/20 10:08 89 146/64 11/22/20 06:00 98.2 16 96 Room Air Laboratory Data CBC/BMP Laboratory Tests 11/22/20 09:35 Labs 24H Laboratory Tests 2 11/21/20 11:30: Bedside Glucose (Misc Panel) 181H 11/21/20 16:36: Bedside Glucose (Misc Panel) 144H 11/21/20 21:55: Bedside Glucose (Misc Panel) 201H 11/22/20 05:42: Bedside Glucose (Misc Panel) 145H 11/22/20 09:35: Immature Granulocyte % (Auto) 0.7, Neutrophils (%) (Auto) 84.5H, Lymphocytes (%) (Auto) 5.8L, Monocytes (%) (Auto) 8.1H, Eosinophils (%) (Auto) 0.7, Basophils (%) (Auto) 0.2, Neutrophils # (Auto) 8.3, Lymphocytes # (Auto) 0.6L, Monocytes # (Auto) 0.8, Eosinophils # (Auto) 0.1, Basophils # (Auto) 0.0, Nucleated Red Blood Cells % (auto) 0.0 Microbiology Microbiology 11/19/20 Stool Occult Blood (LINDA) - Final, Complete Current Medications Current Medications Current Medications Medications (Trade) Dose Ordered Sig/Imelda Route PRN Reason Start Time Stop Time Status Last Admin Dose Admin Acetaminophen (Tylenol Tab) 650 mg Q4HP PRN PO fever/MILD PAIN (PS 1-4) 11/08/20 13:35 Albuterol/ Ipratropium (Combivent Respimat 100-20mcg) 1 puff RTID INH 11/08/20 20:00 11/21/20 20:23 Allopurinol (Zyloprim) 100 mg DAILY PO 11/09/20 09:00 11/20/20 09:33 Amlodipine Besylate (Norvasc) 5 mg DAILY PO 11/14/20 09:00 11/22/20 10:08 Amlodipine Besylate (Norvasc) 10 mg DAILY PO 11/09/20 09:00 11/13/20 19:53 DC 11/13/20 09:21 Artificial Tears (Akwa Tears) 2 drop TID OU 11/08/20 16:00 11/22/20 10:11 Aspirin (Ecotrin) 81 mg DAILY PO 11/09/20 09:00 11/22/20 10:06 Bisacodyl (Dulcolax Tab) 5 mg DAILYPRN PRN PO CONSTIPATION 11/08/20 13:35 11/10/20 16:06 DC Darbepoetin Paulo (Aranesp) 100 mcg Mondragon@09 CT 11/17/20 21:45 11/17/20 23:45 Dextrose (Dextrose 50%) 25 ml ASDIRECTED PRN IV SEE LABEL COMMENTS 11/08/20 13:35 Docusate Sodium (Colace) 100 mg BID PO 11/08/20 21:00 11/10/20 16:06 DC 11/09/20 20:43 Enoxaparin Sodium (Lovenox) 40 mg DAILY SC 11/09/20 09:00 11/22/20 10:05 Ferrous Sulfate (Ferrous Sulfate) 325 mg BID PO 11/08/20 21:00 11/22/20 10:06 Fidaxomicin (Dificid) 200 mg BID PO 11/16/20 09:00 11/26/20 08:59 11/22/20 10:06 Furosemide (Lasix) 40 mg BID@ PO 11/14/20 09:00 11/18/20 10:27 DC 11/18/20 08:58 Furosemide (Lasix) 40 mg DAILY PO 11/09/20 09:00 11/10/20 16:06 DC 11/10/20 07:59 Glucagon (Glucagon) 1 mg ASDIRECTED PRN SC SEE LABEL COMMENTS 11/08/20 13:35 Glucose (Glucose) 16 GM ASDIRECTED PRN PO SEE LABEL COMMENTS 11/08/20 13:35 Guaifenesin (Robitussin Tab) 400 mg BID PO 11/08/20 21:00 11/22/20 10:04 Home Med (Med Rec Complete!) ASDIRECTED XX 11/08/20 15:20 11/08/20 15:53 DC Hydroxyzine HCl (Atarax) 10 mg BID PO 11/13/20 14:00 11/22/20 10:07 Insulin Detemir (Levemir Insulin) 25 units DAILY SC 11/09/20 09:00 11/22/20 10:07 Insulin Human Lispro (HumaLOG INSULIN) SEE PROTOCOL TABLE AC SC 11/08/20 17:30 11/22/20 10:08 Insulin Human Lispro (HumaLOG INSULIN) SEE PROTOCOL TABLE QHS SC 11/08/20 21:00 11/09/20 08:44 DC Isosorbide Dinitrate (Isordil) 20 mg Q6H PO 11/08/20 18:00 11/22/20 05:45 Lactobacillus Acidophilus (Bacid) 1 ea BID PO 11/13/20 21:00 11/22/20 10:06 Lactobacillus Acidophilus (Bacid) 1 ea TID PO 11/08/20 16:00 11/13/20 13:11 DC 11/13/20 09:20 Multivitamins (Theragram-M) 1 tab DAILY PO 11/09/20 09:00 11/22/20 10:04 Nitroglycerin (Nitrostat (1/ 150)) 0.4 mg Q5MP PRN SL CHEST PAIN 11/08/20 13:35 Omeprazole (PriLOSEC) 20 mg DAILY PO 11/09/20 09:00 11/11/20 11:03 DC 11/11/20 09:39 Omeprazole (PriLOSEC) 40 mg DAILY PO 11/16/20 09:00 11/22/20 10:06 Ondansetron HCl (Zofran Odt) 4 mg Q6HP PRN PO NAUSEA OR VOMITING 11/16/20 04:00 11/16/20 12:27 Phenylephrine HCl (Preparation H Supp) 1 sup BID WI 11/19/20 21:00 11/21/20 21:48 Potassium Chloride (Micro-K Extencaps) 10 meq BID PO 11/13/20 21:00 11/22/20 10:05 Primidone (Mysoline) 25 mg BID PO 11/08/20 21:00 11/22/20 10:06 Rosuvastatin Calcium (Crestor) 20 mg QHS PO 11/08/20 21:00 11/21/20 21:48 Senna (Senokot) 1 tab QHS PO 11/08/20 21:00 11/10/20 16:06 DC 11/09/20 20:43 Sertraline HCl (Zoloft) 25 mg QAM PO 11/09/20 09:00 11/22/20 10:06 Tamsulosin HCl (Flomax) 0.4 mg QHS PO 11/08/20 21:00 11/21/20 21:48 Torsemide (Demadex) 30 mg BID@, PO 11/18/20 17:00 11/19/20 11:25 DC 11/19/20 08:50 Torsemide (Demadex) 40 mg BID@, PO 11/19/20 17:00 11/22/20 10:05 Vancomycin HCl (First-Vancomycin 50(Firvanq)- 250mg/5ml) 125 mg Q6H PO 11/10/20 18:00 11/16/20 04:01 DC 11/15/20 23:45 Vitamin D (Vitamin D) 1,000 units DAILY PO 11/09/20 09:00 11/22/20 10:06 LV HEREDIA MD November 22, 2020 10:39
[2020-11-22 10:51] LABS: ALBUMIN 2.4 GM/DL (3.2-5.2); BLOOD UREA NITROGEN 30 MG/DL (7-18); CALCIUM LEVEL 7.9 MG/DL (8.8-10.2); CARBON DIOXIDE LEVEL 29 MEQ/L (21-32); CHLORIDE LEVEL 99 MEQ/L (98-107); CREATININE FOR GFR 1.07 MG/DL (0.70-1.30); GLOMERULAR FILTRATION RATE > 60.0 (>42); GLUCOSE, FASTING 146 MG/DL (70-100); PHOSPHORUS LEVEL 2.8 MG/DL (2.5-4.9); POTASSIUM SERUM 4.6 MEQ/L (3.5-5.1); SODIUM LEVEL 136 MEQ/L (136-145)
--- NOTE | 2020-11-22 12:47 | IPNPDOC ---
Text Note Date of Service The patient was seen on 11/22/20. NOTE Patient feels good and denies complaints. No over night events PHYSICAL EXAM: GENERAL: NAD, AAOx3 HEENT: PERRLA, EOM intact, poor dentition, AT/NC LUNGS: CTAB. No wheezing, rales, or rhonchi. mild b/l bases fine crakles HEART: S1, S2. Sinus rhythm currently . No M/R/G ABDOMEN: Soft, nontender, nondistended, and obese. EXTREMITIES: No cyanosis, clubbing. +1-2 pitting edema b/l lower ext. NEUROLOGIC: Generalized weakness 4/5 in lower ext, 5/5 strength in upper ext. No focal deficits, CN 2-12 intact. Sensory and motor intact Labs Reviewed Assessment and plan: 70-year-old male with history of syringomyelia admitted to ARU for continued rehab after hospitalization for polymyalgia rheumatica, RML/RLL aspiration vs. HCAP , UTI. 1: Weakness likely 2/2 to polymyalgia rheumatica in the setting of chronic syringomyelia: C/w PT/OT and tx for issues below 2: Polymyalgia rheumatica in the setting of chronic syringomyelia: right-sided deficit improved with IV Tdms-[id number] 5 total doses, cont PT/OT. Received full workup with repeat MRI of the brain and lumbar puncture, all of which had been unchanged and negative for any meningeal infection. 3: Acute on chronic anemia 2/2 recurrent gross hematuria and status post history of recent GI bleed. H/h stable with mild downward trend. S/p EGD/colonoscopy. Neg biopsies. Continue to monitor closely, regular CBC 4: Lower ext swelling c/w torsemide daily . Monitor u/o, edema 5: Urinary retention poss 2/2 to BPH: C/w flomax, finasteride 6: DM type II worsened by steroids : c/w levemir dose, ISS AC, consistent carb diet, FS AC/HS 7: Enterococcus urinary tract infection in the setting of recent gross hematuria with clemens catheter due to urine retention-treated : completed 3 days of cipro on 11/04/20 8: Right middle and right lower lobe aspiration vs HCAP- resolved DVT px : lovenox Dispo. As per ARU. Goal: home with family. VS,Fishbone, I+O VS, Fishbone, I+O Laboratory Tests 11/22/20 09:35 Vital Signs Date Time Temp Pulse Resp B/P (MAP) Pulse Ox O2 Delivery O2 Flow Rate FiO2 11/22/20 12:26 133/60 11/22/20 10:08 89 11/22/20 06:00 98.2 16 96 Room Air I&O- Last 24 Hours up to 6 AM 11/22/20 06:00 Intake Total 890 ml Output Total 2100 ml Balance -1210 ml GARTH REYES MD November 22, 2020 12:47
[2020-11-22 14:00] VITALS: BP 153/67
[2020-11-22 20:00] VITALS: BP 146/65
[2020-11-22] MEDS: TAMSULOSIN 0.4 MG CAP PO SCH (21:07)
[2020-11-22] MEDS: ROSUVASTATIN 10 MG TAB (CRESTOR) PO SCH (21:07)
--- NOTE | 2020-11-22 23:14 | IPN ---
NEPHROLOGY PROGRESS NOTE DATE: 11/22/2020 SUBJECTIVE: Patient was seen and examined at the bedside today morning in the rehab unit. He is afebrile, hemodynamically stable. He continues to be on oral diuretics. He reports persistent lower extremity edema. His weight is also persistently stable for the last 3-4 days. OBJECTIVE: VITAL SIGNS: Temperature 97.2 degrees Fahrenheit, blood pressure 146/65, pulse 92, respiratory rate 20, saturating 98% on room air. INTAKE/OUTPUT: Urine output is not being recorded well. Weight in the bed scale is 103.2 kg, which is the same for the last three days. PHYSICAL EXAMINATION: GENERAL: Patient is awake, alert, oriented x3, laying in the sofa in no apparent distress. HEAD/NECK: Extraocular muscles intact. Pupils equally round and reactive to light. Mucous membranes are moist. Neck is supple. There is no JVD. CVS: S1, S2, regular rate. 2+ edema of bilateral lower extremities. He has compression bandages on the lower extremities. RESPIRATORY: Chest is clear to auscultation bilaterally. Bilateral equal air entry. No rales or rhonchi. ABDOMEN: Soft, obese, positive bowel sounds. MUSCULOSKELETAL: Compression bandages on the lower extremities were noted. ADMISSIONS RECRUITER: Patient has syringomyelia and he walks with the help of a walker. LAB REVIEW: CBC showed WBC 9.8, hemoglobin 9.4, platelets 316,000. BMP showed sodium 136, potassium 4.6, chloride 99, bicarb 29, BUN 30, creatinine 1.07. Calcium 7.9. Phosphorus 2.8. Albumin 2.4. CURRENT INPATIENT MEDICATIONS: Patient's medications were all reviewed by myself. I have increased the Torsemide dose to 50 mg p.o. twice a day. No other significant change in the medications today except that his Amlodipine has been changed to 5 mg p.o. twice a day. ASSESSMENT AND PLAN: 1. Chronic kidney disease stage 2: Patient's renal function is stable. He is tolerating current dose of Torsemide. Since he has persistent edema, dose is being increased as mentioned below. 2. Lower extremity edema and decompensated diastolic congestive heart failure: Increase Torsemide to 50 mg p.o. twice a day. Continue to monitor intake and output. 3. Anemia: Hemoglobin is stable at 9.4 at this time. 4. Hypertension: Blood pressure is controlled. He is currently on Amlodipine and Isosorbide and diuretic and optimization of fluid status would also help improve his blood pressure.
[2020-11-23 06:00] VITALS: BP 150/62
[2020-11-23] MEDS: ISOSORBIDE DIN. (ISORDIL) 20 MG TAB PO SCH ×3 (06:29→17:18)
[2020-11-23] MEDS: HumaLOG INSULIN (NovoLOG) PER UNIT SC SCH ×3 (07:30→17:19)
[2020-11-23] MEDS: LEVEMIR (INSULIN DETEMIR) 1 UNITS/0.01ML SC SCH (08:23)
[2020-11-23] MEDS: SERTRALINE HCL 25 MG TABLET PO SCH (08:24)
[2020-11-23] MEDS: TORSEMIDE 20 MG TAB PO SCH ×2 (08:24→17:18)
[2020-11-23] MEDS: amLODIPine 5 MG TAB PO SCH ×2 (08:25→20:56)
[2020-11-23] MEDS: ASPIRIN 81MG ENTERIC TABLET PO SCH (08:25)
[2020-11-23] MEDS: VITAMIN D 1,000 INTERNATIONAL UNITS TABLET PO SCH (08:25)
[2020-11-23] MEDS: FIDAXOMICIN 200 MG TAB (DIFICID) PO SCH ×2 (08:25→20:55)
[2020-11-23] MEDS: POTASSIUM CHLORIDE 10 MEQ SR TABLET PO SCH ×2 (08:25→20:55)
[2020-11-23] MEDS: FERROUS SULFATE 325MG TAB PO SCH ×2 (08:25→20:56)
[2020-11-23] MEDS: ENOXAPARIN 40MG/0.4ML SYRINGE (J1650 PER 10MG) SC SCH (08:25)
[2020-11-23] MEDS: hydrOXYzine 10 MG TAB PO SCH ×2 (08:25→20:56)
[2020-11-23] MEDS: OMEPRAZOLE 20 MG CAP PO SCH (08:25)
[2020-11-23] MEDS: PRIMIDONE 25MG PER 1/2 TABLET PO SCH ×2 (08:26→20:55)
[2020-11-23] MEDS: LACTOBACILLUS ACIDOPHILUS CAP (BACID) PO SCH ×2 (08:26→20:56)
[2020-11-23] MEDS: guaiFENesin 200 MG TAB PO SCH ×2 (08:26→20:59)
[2020-11-23] MEDS: MULTIVITAMINS/MINERALS THERAP 1 TAB PO SCH (08:26)
[2020-11-23] MEDS: POLYVINYL ALCOHOL OPHTH SOLN 15 ML(LIQUITEARS) OU SCH ×3 (08:27→20:59)
[2020-11-23] MEDS: allopurinoL 100 MG TAB PO SCH (08:27)
[2020-11-23] MEDS: REMEDY PHYTOPLEX Z-GUARD PASTE 113GM TUBE (FROM STOREROOM PRODUCT) TOP SCH ×3 (08:29→20:59)
[2020-11-23] MEDS: PREPARATION H SUPP (HEMORRHOID) PR SCH ×2 (08:29→20:56)
[2020-11-23] MEDS: COMBIVENT RESPIMAT 100-20MCG INHALER 4GM INH SCH ×3 (10:15→19:57)
[2020-11-23 12:42] VITALS: BP 132/56
[2020-11-23 14:00] VITALS: BP 140/62
[2020-11-23 17:16] VITALS: BP 121/56
[2020-11-23] MEDS: ROSUVASTATIN 10 MG TAB (CRESTOR) PO SCH (20:56)
[2020-11-23] MEDS: TAMSULOSIN 0.4 MG CAP PO SCH (20:56)
[2020-11-23 22:00] VITALS: BP 139/64
[2020-11-24] VITALS (8 sets, daily range): BP systolic 120–158; BP diastolic 58–74
[2020-11-24] MEDS: ISOSORBIDE DIN. (ISORDIL) 20 MG TAB PO SCH ×4 (00:10→17:26)
[2020-11-24] MEDS: COMBIVENT RESPIMAT 100-20MCG INHALER 4GM INH SCH ×3 (07:46→20:35)
[2020-11-24 08:02] LABS: BASO % 0.4 % (0.0-1.0); EOS # 0.1 10^3/uL (0.0-0.5); EOS % 2.2 % (0.0-3.0); HEMATOCRIT 26.9 % (42.0-52.0); LYMPH # 0.7 10^3/uL (1.5-5.0); LYMPH % 12.1 % (24.0-44.0); MEAN CORPUSCULAR HEMOGLOBIN 32.1 pg (27.0-33.0); MEAN CORPUSCULAR HGB CONC 33.5 g/dl (32.0-36.5); MEAN CORPUSCULAR VOLUME 96.1 fl (80.0-96.0); MONO # 0.7 10^3/uL (0.0-0.8); MONO % 12.9 % (2.0-8.0); NEUTROPHILS % 71.9 % (36.0-66.0); PLATELET COUNT, AUTOMATED 347 10^3/uL (150-450); WHITE BLOOD COUNT 5.6 10^3/uL (4.0-10.0)
[2020-11-24 08:34] LABS: BLOOD UREA NITROGEN 26 MG/DL (7-18); CALCIUM LEVEL 8.2 MG/DL (8.8-10.2); CARBON DIOXIDE LEVEL 31 MEQ/L (21-32); CHLORIDE LEVEL 100 MEQ/L (98-107); CREATININE FOR GFR 1.12 MG/DL (0.70-1.30); GLOMERULAR FILTRATION RATE > 60.0 (>42); GLUCOSE, FASTING 149 MG/DL (70-100); POTASSIUM SERUM 4.1 MEQ/L (3.5-5.1); SODIUM LEVEL 137 MEQ/L (136-145)
[2020-11-24] MEDS: SERTRALINE HCL 25 MG TABLET PO SCH (08:42)
[2020-11-24] MEDS: guaiFENesin 200 MG TAB PO SCH ×2 (08:42→20:45)
[2020-11-24] MEDS: LEVEMIR (INSULIN DETEMIR) 1 UNITS/0.01ML SC SCH (08:42)
[2020-11-24] MEDS: FIDAXOMICIN 200 MG TAB (DIFICID) PO SCH ×2 (08:43→20:45)
[2020-11-24] MEDS: ENOXAPARIN 40MG/0.4ML SYRINGE (J1650 PER 10MG) SC SCH (08:43)
[2020-11-24] MEDS: ASPIRIN 81MG ENTERIC TABLET PO SCH (08:43)
[2020-11-24] MEDS: hydrOXYzine 10 MG TAB PO SCH ×2 (08:43→20:44)
[2020-11-24] MEDS: HumaLOG INSULIN (NovoLOG) PER UNIT SC SCH ×3 (08:43→17:26)
[2020-11-24] MEDS: MULTIVITAMINS/MINERALS THERAP 1 TAB PO SCH (08:43)
[2020-11-24] MEDS: allopurinoL 100 MG TAB PO SCH (08:43)
[2020-11-24] MEDS: FERROUS SULFATE 325MG TAB PO SCH ×2 (08:44→20:46)
[2020-11-24] MEDS: PRIMIDONE 25MG PER 1/2 TABLET PO SCH ×2 (08:44→20:44)
[2020-11-24] MEDS: OMEPRAZOLE 20 MG CAP PO SCH (08:44)
[2020-11-24] MEDS: VITAMIN D 1,000 INTERNATIONAL UNITS TABLET PO SCH (08:44)
[2020-11-24] MEDS: POTASSIUM CHLORIDE 10 MEQ SR TABLET PO SCH ×2 (08:44→20:44)
[2020-11-24] MEDS: LACTOBACILLUS ACIDOPHILUS CAP (BACID) PO SCH ×2 (08:44→20:44)
[2020-11-24] MEDS: amLODIPine 5 MG TAB PO SCH ×2 (08:44→20:45)
[2020-11-24] MEDS: TORSEMIDE 20 MG TAB PO SCH ×2 (08:44→17:26)
[2020-11-24] MEDS: POLYVINYL ALCOHOL OPHTH SOLN 15 ML(LIQUITEARS) OU SCH ×3 (08:45→20:46)
[2020-11-24] MEDS: PREPARATION H SUPP (HEMORRHOID) PR SCH ×2 (08:45→20:45)
[2020-11-24] MEDS: REMEDY PHYTOPLEX Z-GUARD PASTE 113GM TUBE (FROM STOREROOM PRODUCT) TOP SCH ×3 (08:45→20:46)
[2020-11-24] MEDS: DARBEPOETIN 100 MCG/0.5 ML *NON-DIALYSIS* SYRINGE (J0881) SC SCH (09:34)
--- NOTE | 2020-11-24 16:32 | IPN ---
NEPHROLOGY PROGRESS NOTE DATE: 11/24/2020 SUBJECTIVE: Patient was seen and examined at the bedside today morning in the rehabilitation unit. He is afebrile, hemodynamically stable. He reports mild persistent lower extremity edema. He is on twice a day torsemide at this time. Renal function is stable on the labs done today morning. OBJECTIVE: VITAL SIGNS: Temperature 96.5 degrees Fahrenheit, blood pressure 129/60, pulse 75, respiratory rate 18, saturating 100% on room air. INTAKE AND OUTPUT: Urine output is not recorded. He has had seven voids yesterday, one void so far today since overnight. Weight in the bed scale is 103.9 kg, which is stable for the last 3-4 days.. PHYSICAL EXAMINATION: GENERAL: Patient is awake, alert, oriented times three, laying in bed, no apparent distress. HEAD AND NECK EXAM: Extraocular muscles intact. Pupils equally round and reactive to light. Mucous membranes are moist. Neck is supple. There is no jugular venous distention (JVD). CARDIOVASCULAR: S1, S2. Regular rate. 2+ edema of the bilateral lower extremities. RESPIRATORY: Chest is clear to auscultation bilaterally. Bilateral equal air entry. No rales or rhonchi. ABDOMEN: Soft. Distended. Abdominal wall edema is noted. CENTRAL NERVOUS SYSTEM (SKEINS YARN EXAMINER): No focal deficits. Power is 5/5 in all extremities. LABORATORY STUDIES: CBC showed WBC 5.6, hemoglobin 9, platelets 347. BMP showed sodium 137, potassium 4.1, chloride 100, bicarbonate 31, BUN 26, creatinine 1.1, it was 1.07, calcium 8.2. CURRENT INPATIENT MEDICATIONS: Patient's medications were all reviewed by myself. No significant change in the medications today as compared with yesterday. ASSESSMENT AND PLAN: 1. Chronic kidney disease stage II. Renal function is stable. Okay to continue dose of torsemide for persistent lower extremity edema. 2. Chronic diastolic congestive heart failure and lower extremity edema. Continue torsemide 50 mg by mouth twice a day. Patient is not diuresing much with torsemide. I am starting him on albumin infusions 12.5 grams twice a day. Hopefully, that should help him diurese better. 3. Hypertension. Continue current dose of amlodipine and isosorbide. 4. Anemia. Hemoglobin is 9, which is stable for now. Iron levels are within the acceptable range. If hemoglobin drops below 9, his Aranesp dose will be increased. Continue current dose of 100 mcg subcutaneous once a week.
[2020-11-24] MEDS: ROSUVASTATIN 10 MG TAB (CRESTOR) PO SCH (20:44)
[2020-11-24] MEDS: TAMSULOSIN 0.4 MG CAP PO SCH (20:44)
[2020-11-25] MEDS: ISOSORBIDE DIN. (ISORDIL) 20 MG TAB PO SCH ×4 (00:11→17:49)
[2020-11-25 05:53] VITALS: BP 166/73
[2020-11-25] MEDS: COMBIVENT RESPIMAT 100-20MCG INHALER 4GM INH SCH ×3 (07:39→19:36)
[2020-11-25] MEDS: PREPARATION H SUPP (HEMORRHOID) PR SCH ×2 (09:00→20:30)
[2020-11-25] MEDS: HumaLOG INSULIN (NovoLOG) PER UNIT SC SCH ×3 (09:18→17:48)
[2020-11-25] MEDS: LEVEMIR (INSULIN DETEMIR) 1 UNITS/0.01ML SC SCH (09:18)
[2020-11-25] MEDS: PRIMIDONE 25MG PER 1/2 TABLET PO SCH ×2 (09:19→20:28)
[2020-11-25] MEDS: ASPIRIN 81MG ENTERIC TABLET PO SCH (09:19)
[2020-11-25] MEDS: POTASSIUM CHLORIDE 10 MEQ SR TABLET PO SCH ×2 (09:19→20:28)
[2020-11-25] MEDS: allopurinoL 100 MG TAB PO SCH (09:19)
[2020-11-25] MEDS: OMEPRAZOLE 20 MG CAP PO SCH (09:19)
[2020-11-25] MEDS: MULTIVITAMINS/MINERALS THERAP 1 TAB PO SCH (09:19)
[2020-11-25] MEDS: LACTOBACILLUS ACIDOPHILUS CAP (BACID) PO SCH ×2 (09:19→20:29)
[2020-11-25] MEDS: FIDAXOMICIN 200 MG TAB (DIFICID) PO SCH ×2 (09:19→20:29)
[2020-11-25] MEDS: ENOXAPARIN 40MG/0.4ML SYRINGE (J1650 PER 10MG) SC SCH (09:19)
[2020-11-25] MEDS: SERTRALINE HCL 25 MG TABLET PO SCH (09:20)
[2020-11-25] MEDS: VITAMIN D 1,000 INTERNATIONAL UNITS TABLET PO SCH (09:20)
[2020-11-25] MEDS: hydrOXYzine 10 MG TAB PO SCH ×2 (09:20→20:29)
[2020-11-25] MEDS: amLODIPine 5 MG TAB PO SCH ×2 (09:20→20:30)
[2020-11-25] MEDS: FERROUS SULFATE 325MG TAB PO SCH ×2 (09:20→20:29)
[2020-11-25] MEDS: guaiFENesin 200 MG TAB PO SCH ×2 (09:20→20:28)
[2020-11-25] MEDS: REMEDY PHYTOPLEX Z-GUARD PASTE 113GM TUBE (FROM STOREROOM PRODUCT) TOP SCH ×3 (09:21→20:31)
[2020-11-25] MEDS: POLYVINYL ALCOHOL OPHTH SOLN 15 ML(LIQUITEARS) OU SCH ×3 (09:22→20:31)
--- NOTE | 2020-11-25 09:28 | IPNPDOC ---
PM&R Progress Note DATE OF SERVICE: November 25, 2020 Mailroom Supervisor Progress Note Subjective: Patient seen, receiving albumin, stating he feels good and would like to have a script for a hospital bed. He states he is very happy with the care he has received. REVIEW OF SYSTEMS: The following is a completed review of systems and has been reviewed. Review of systems otherwise unremarkable. PAIN: Patient self reports no pain EYES: No recent vision changes EARS, NOSE, & THROAT: No throat pain, or dysphagia, or rhinorrhea CARDIOVASCULAR: Denies chest pain or palpitations PULMONARY: Denies shortness of breath GASTROINTESTINAL: +diarrhea (resolved) GENITOURINARY: +intermittent hematuria (not complaining of this while on ARU) MUSCULOSKELETAL: generalized weakness NEUROLOGICAL: denies paresthesias HEMATOLOGICAL: +anemia SKIN: denies rash PSYCHIATRIC: Unremarkable All other review of systems found to be negative. PHYSICAL EXAMINATION: VITAL SIGNS: Please see below. GENERAL: Pleasant and cooperative. No acute distress. HEENT: PERRL. Extraocular movements intact. Clear conjunctiva CARDIOVASCULAR: Regular rate and rhythm. No murmurs, rubs, or gallops LUNGS: Clear to auscultation bilaterally. No wheezes. No rhonchi ABDOMEN: Soft, nontender, mildly distended. Positive bowel sounds. NEUROLOGICAL: Alert and oriented times three. Cranial nerves II through XII grossly intact. Sensation grossly intact +babinski bilat EXTREMITIES: 5\5 strength bilateral upper extremities. 5\5 strength right lower extremity. 5/5 strength in left lower extremity. +bilat LE edema (improving) SKIN: no sacrum ulcers ASSESSMENT:70-year-old M with past medical history of syringomyelia who presents status post worsening weakness in setting of possible polymyalgia rheumatica flair and encephalopathy due to PNA and UTI. PLAN: 1. 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 Neuro- hx of cervicothoracic syrinx with worsening weakness in setting of possible polymyalgia rheumatic flair s/p IV solumedrol -f/u neurology and neuro-surgery, patient declining neurosurgical intervention at this time -tremor, c/u primidone 3. Cardiac- chronic diastolic CHF, daily weights, and fluid restrict, renal consulted to help with fluid status, diuretic management per renal, currently receiving torsemide and albumin -HTN c/u BP meds -recent Aflutter, off AC due to GI bleed and hematuria- on ASA 4. Resp- hx of LIANNA on CPAP, s/p course of Zosyn for possible HAP vs aspiration PNA- cleared by speech for regular diet, monitor for infection -c/u combivent and incentive spirometry 5. GI- s/p recent endoscopy +non-bleeding internal hemorrhoids, diverticulitis, and polyps removed- f/u GI outpatient -+ C diff, on difficid, d/c'd omeprazole, patient clinically stable and diarrhea improving -recent drop in Hgb probably due to GI bleed, patient reporting he was noted to have some blood with wiping, ordered preparation H suppository as patient has internal hemorrhoids which may be slowly bleeding now that he has had diarrheal infection- this has resolved, c/u to monitor HH, f/u GI on discharge, had recent in-house endoscopic work-up 6. Endo- hx fo DM c/u insulin and ISS, adjust prn 7. Psych- hx of depression c/u zoloft -atarax 10mg bid 8. DVT ppx- lovenox 9. - BPH c/u flomax, monitor for hematuria 10. Heme- iron deficiency anemia c/u iron supplements, recent blood loss due to hematuria and gi bleed- -s/p 1 unit prbc -FOBT +, patient with known hx of GI bleed and recent endoscopic work-up, hemo dynamically stable 11. Dispo- 11-28-20 to home, progressing towards goals Allergies Coded Allergies: lisinopril (Verified Adverse Reaction, Intermediate, HYPOTENSION, 10/21/20) metformin (Verified Adverse Reaction, Intermediate, LOWERS KIDNEY FUNCTON, 10/21/20) finasteride (Verified Adverse Reaction, Unknown, DIZZINESS, 10/21/20) Vital Signs Vital Signs Date Time Temp Pulse Resp B/P (MAP) Pulse Ox O2 Delivery O2 Flow Rate FiO2 11/25/20 09:20 72 154/69 11/25/20 05:53 97.6 18 95 Room Air Laboratory Data Labs 24H Laboratory Tests 2 11/24/20 11:38: Bedside Glucose (Misc Panel) 183H 11/24/20 16:50: Bedside Glucose (Misc Panel) 147H 11/24/20 20:00: Bedside Glucose (Misc Panel) 141H 11/25/20 05:31: Bedside Glucose (Misc Panel) 123H Microbiology Microbiology 11/19/20 Stool Occult Blood (LINDA) - Final, Complete Current Medications Current Medications Current Medications Medications (Trade) Dose Ordered Sig/Imelda Route PRN Reason Start Time Stop Time Status Last Admin Dose Admin Acetaminophen (Tylenol Tab) 650 mg Q4HP PRN PO fever/MILD PAIN (PS 1-4) 11/08/20 13:35 Albuterol/ Ipratropium (Combivent Respimat 100-20mcg) 1 puff RTID INH 11/08/20 20:00 11/25/20 07:39 Allopurinol (Zyloprim) 100 mg DAILY PO 11/09/20 09:00 11/25/20 09:19 Amlodipine Besylate (Norvasc) 5 mg BID PO 11/22/20 21:00 11/25/20 09:20 Amlodipine Besylate (Norvasc) 5 mg DAILY PO 11/14/20 09:00 11/22/20 10:33 DC 11/22/20 10:08 Amlodipine Besylate (Norvasc) 10 mg DAILY PO 11/09/20 09:00 11/13/20 19:53 DC 11/13/20 09:21 Artificial Tears (Akwa Tears) 2 drop TID OU 11/08/20 16:00 11/25/20 09:22 Aspirin (Ecotrin) 81 mg DAILY PO 11/09/20 09:00 11/25/20 09:19 Bisacodyl (Dulcolax Tab) 5 mg DAILYPRN PRN PO CONSTIPATION 11/08/20 13:35 11/10/20 16:06 DC Darbepoetin Paulo (Aranesp) 100 mcg Mondragon@09 SC 11/17/20 21:45 11/24/20 09:34 Dextrose (Dextrose 50%) 25 ml ASDIRECTED PRN IV SEE LABEL COMMENTS 11/08/20 13:35 Docusate Sodium (Colace) 100 mg BID PO 11/08/20 21:00 11/10/20 16:06 DC 11/09/20 20:43 Enoxaparin Sodium (Lovenox) 40 mg DAILY SC 11/09/20 09:00 11/25/20 09:19 Ferrous Sulfate (Ferrous Sulfate) 325 mg BID PO 11/08/20 21:00 11/25/20 09:20 Fidaxomicin (Dificid) 200 mg BID PO 11/16/20 09:00 11/26/20 08:59 11/25/20 09:19 Furosemide (Lasix) 40 mg BID@09,17 PO 11/14/20 09:00 11/18/20 10:27 DC 11/18/20 08:58 Furosemide (Lasix) 40 mg DAILY PO 11/09/20 09:00 11/10/20 16:06 DC 11/10/20 07:59 Glucagon (Glucagon) 1 mg ASDIRECTED PRN SC SEE LABEL COMMENTS 11/08/20 13:35 Glucose (Glucose) 16 GM ASDIRECTED PRN PO SEE LABEL COMMENTS 11/08/20 13:35 Guaifenesin (Robitussin Tab) 400 mg BID PO 11/08/20 21:00 11/25/20 09:20 Home Med (Med Rec Complete!) ASDIRECTED XX 11/08/20 15:20 11/08/20 15:53 DC Hydroxyzine HCl (Atarax) 10 mg BID PO 11/13/20 14:00 11/25/20 09:20 Insulin Detemir (Levemir Insulin) 25 units DAILY SC 11/09/20 09:00 11/25/20 09:18 Insulin Human Lispro (HumaLOG INSULIN) SEE PROTOCOL TABLE AC SC 11/08/20 17:30 11/25/20 09:18 Insulin Human Lispro (HumaLOG INSULIN) SEE PROTOCOL TABLE QHS SC 11/08/20 21:00 11/09/20 08:44 DC Isosorbide Dinitrate (Isordil) 20 mg Q6H PO 11/08/20 18:00 11/25/20 05:39 Lactobacillus Acidophilus (Bacid) 1 ea BID PO 11/13/20 21:00 11/25/20 09:19 Lactobacillus Acidophilus (Bacid) 1 ea TID PO 11/08/20 16:00 11/13/20 13:11 DC 11/13/20 09:20 Multivitamins (Theragram-M) 1 tab DAILY PO 11/09/20 09:00 11/25/20 09:19 Nitroglycerin (Nitrostat (1/ 150)) 0.4 mg Q5MP PRN SL CHEST PAIN 11/08/20 13:35 Omeprazole (PriLOSEC) 20 mg DAILY PO 11/09/20 09:00 11/11/20 11:03 DC 11/11/20 09:39 Omeprazole (PriLOSEC) 40 mg DAILY PO 11/16/20 09:00 11/25/20 09:19 Ondansetron HCl (Zofran Odt) 4 mg Q6HP PRN PO NAUSEA OR VOMITING 11/16/20 04:00 11/16/20 12:27 Phenylephrine HCl (Preparation H Supp) 1 sup BID AZ 11/19/20 21:00 11/24/20 20:45 Potassium Chloride (Micro-K Extencaps) 10 meq BID PO 11/13/20 21:00 11/25/20 09:19 Primidone (Mysoline) 25 mg BID PO 11/08/20 21:00 11/25/20 09:19 Rosuvastatin Calcium (Crestor) 20 mg QHS PO 11/08/20 21:00 11/24/20 20:44 Senna (Senokot) 1 tab QHS PO 11/08/20 21:00 11/10/20 16:06 DC 11/09/20 20:43 Sertraline HCl (Zoloft) 25 mg QAM PO 11/09/20 09:00 11/25/20 09:20 Tamsulosin HCl (Flomax) 0.4 mg QHS PO 11/08/20 21:00 11/24/20 20:44 Torsemide (Demadex) 30 mg BID@ PO 11/18/20 17:00 11/19/20 11:25 DC 11/19/20 08:50 Torsemide (Demadex) 40 mg BID@ PO 11/19/20 17:00 11/22/20 11:40 DC 11/22/20 10:05 Torsemide (Demadex) 50 mg BID@, PO 11/22/20 17:00 11/24/20 17:26 Vancomycin HCl (First-Vancomycin 50(Firvanq)- 250mg/5ml) 125 mg Q6H PO 11/10/20 18:00 11/16/20 04:01 DC 11/15/20 23:45 Vitamin D (Vitamin D) 1,000 units DAILY PO 11/09/20 09:00 11/25/20 09:20 LV HEREDIA MD November 25, 2020 09:28
[2020-11-25 13:02] VITALS: BP 143/63
[2020-11-25] MEDS: TORSEMIDE 20 MG TAB PO SCH ×2 (13:05→17:48)
[2020-11-25 13:17] VITALS: BP 132/60
[2020-11-25 13:57] VITALS: BP 127/59
[2020-11-25 14:00] VITALS: BP 127/59
--- NOTE | 2020-11-25 16:49 | IPN ---
PROGRESS NOTE DATE: 11/25/2020 SUBJECTIVE: Mr. Vilchis is seen and examined in the hallways walking the length of the hallway with the physical therapist after walking on the stairs as well. He denies any complaint. He reports that his edema is improving. Denies shortness of breath with rest or dyspnea with exertion. Reports that his bowel movements are formed. OBJECTIVE: VITAL SIGNS: Temperature 97.6, pulse 76, respiratory rate 18, blood pressure 154/69, saturating 95% on room air. INTAKE AND OUTPUT: Intake yesterday was 760. Urine output yesterday was recorded as three voids. There was only one bowel movement recorded. Weight on the bed scale today is 100.8 kg, which is decreased from prior days. GENERAL: The patient is seen awake, alert, oriented x3, and comfortable. Working with the physical therapist walking with a walker. HEENT: Extraocular muscles are intact. Tongue is moist. NECK: Supple. Jugular veins were not elevated while he was standing upright. LUNGS: Clear to auscultation bilaterally. No crackle, rales, or rhonchus. He is comfortable on room air. HEART: Sounds are regular. S1, S2. There is ongoing 1+ leg edema bilaterally and there was some dressings on the leg as well. ABDOMEN: Soft and nontender. He still has some very mild abdominal wall edema. NEUROLOGIC: He is oriented x3. No focal deficits. LABORATORY DATA: Shows glucose of 145. There is no new CBC nor renal panel from today. He continues on albumin with torsemide. INPATIENT MEDICATIONS: Reviewed by myself. The patient is receiving albumin with torsemide and he is presently receiving torsemide 50 mg p.o. twice daily. The remainder of his medications are unchanged as compared to yesterday. PROBLEMS: 1. Chronic diastolic chronic renal failure with exacerbation. The patient is receiving torsemide 50 mg p.o. twice daily. He is on a low sodium diet with 1800 mL fluid restriction. He is also receiving albumin now to augment diuresis. I made no change to the diuretic regimen. His daily weights are down trending and clinically his leg edema is improving. 2. Chronic kidney disease (CKD) stage 2. Renal function is stable at his usual baseline and laboratory studies are checked intermittently while he is in the acute rehabilitation unit. Continue current dose of torsemide diuretic. 3. Hypokalemia in the setting of diuresis. The patient is on potassium supplementation and a renal panel is checked every couple of days to monitor his electrolytes. 4. Anemia. The patient had a positive fecal occult blood test (FOBT). His hemoglobin is suboptimal, but stable at 9.0 and he continues on once weekly Aranesp. He is also on oral iron supplementation. 5. Hypertension. Blood pressures are acceptable on the current regimen of amlodipine and Isordil. 6. Status post C. difficile colitis. The patient is clinically improved and management is as per primary service.
[2020-11-25 20:00] VITALS: BP 132/70
[2020-11-25] MEDS: ROSUVASTATIN 10 MG TAB (CRESTOR) PO SCH (20:28)
[2020-11-25] MEDS: TAMSULOSIN 0.4 MG CAP PO SCH (20:29)
[2020-11-26] MEDS: ISOSORBIDE DIN. (ISORDIL) 20 MG TAB PO SCH ×4 (00:41→17:31)
[2020-11-26 06:32] VITALS: BP 133/60
[2020-11-26] MEDS: COMBIVENT RESPIMAT 100-20MCG INHALER 4GM INH SCH ×3 (07:11→19:30)
[2020-11-26] MEDS: HumaLOG INSULIN (NovoLOG) PER UNIT SC SCH ×3 (07:30→17:30)
[2020-11-26] MEDS: LEVEMIR (INSULIN DETEMIR) 1 UNITS/0.01ML SC SCH (09:00)
[2020-11-26] MEDS: REMEDY PHYTOPLEX Z-GUARD PASTE 113GM TUBE (FROM STOREROOM PRODUCT) TOP SCH ×3 (09:00→20:43)
[2020-11-26] MEDS: PREPARATION H SUPP (HEMORRHOID) PR SCH ×2 (09:00→20:44)
[2020-11-26 10:05] VITALS: BP 146/67
[2020-11-26] MEDS: FERROUS SULFATE 325MG TAB PO SCH ×2 (10:07→20:42)
[2020-11-26] MEDS: MULTIVITAMINS/MINERALS THERAP 1 TAB PO SCH (10:07)
[2020-11-26] MEDS: OMEPRAZOLE 20 MG CAP PO SCH (10:07)
[2020-11-26] MEDS: allopurinoL 100 MG TAB PO SCH (10:07)
[2020-11-26] MEDS: hydrOXYzine 10 MG TAB PO SCH ×2 (10:07→20:41)
[2020-11-26] MEDS: ASPIRIN 81MG ENTERIC TABLET PO SCH (10:08)
[2020-11-26] MEDS: POTASSIUM CHLORIDE 10 MEQ SR TABLET PO SCH ×2 (10:08→20:40)
[2020-11-26] MEDS: SERTRALINE HCL 25 MG TABLET PO SCH (10:08)
[2020-11-26] MEDS: VITAMIN D 1,000 INTERNATIONAL UNITS TABLET PO SCH (10:08)
[2020-11-26] MEDS: PRIMIDONE 25MG PER 1/2 TABLET PO SCH ×2 (10:08→20:42)
[2020-11-26] MEDS: guaiFENesin 200 MG TAB PO SCH ×2 (10:08→20:42)
[2020-11-26] MEDS: LACTOBACILLUS ACIDOPHILUS CAP (BACID) PO SCH ×2 (10:08→20:43)
[2020-11-26] MEDS: TORSEMIDE 20 MG TAB PO SCH ×2 (10:09→17:30)
[2020-11-26] MEDS: amLODIPine 5 MG TAB PO SCH ×2 (10:09→20:41)
[2020-11-26] MEDS: ENOXAPARIN 40MG/0.4ML SYRINGE (J1650 PER 10MG) SC SCH (10:10)
[2020-11-26] MEDS: POLYVINYL ALCOHOL OPHTH SOLN 15 ML(LIQUITEARS) OU SCH ×3 (10:11→20:43)
[2020-11-26 10:20] VITALS: BP 135/61
[2020-11-26 11:09] VITALS: BP 151/66
[2020-11-26 14:00] VITALS: BP 143/64
--- NOTE | 2020-11-26 14:46 | IPNPDOC ---
PM&R Progress Note DATE OF SERVICE: November 26, 2020 Bottom Painter Progress Note Subjective: Patient seen in his room reporting he continues to feel stronger and sees no barriers to going home . REVIEW OF SYSTEMS: The following is a completed review of systems and has been reviewed. Review of systems otherwise unremarkable. PAIN: Patient self reports no pain EYES: No recent vision changes EARS, NOSE, & THROAT: No throat pain, or dysphagia, or rhinorrhea CARDIOVASCULAR: Denies chest pain or palpitations PULMONARY: Denies shortness of breath GASTROINTESTINAL: +diarrhea (resolved) GENITOURINARY: +intermittent hematuria (not complaining of this while on ARU) MUSCULOSKELETAL: generalized weakness NEUROLOGICAL: denies paresthesias HEMATOLOGICAL: +anemia SKIN: denies rash PSYCHIATRIC: Unremarkable All other review of systems found to be negative. PHYSICAL EXAMINATION: VITAL SIGNS: Please see below. GENERAL: Pleasant and cooperative. No acute distress. HEENT: PERRL. Extraocular movements intact. Clear conjunctiva CARDIOVASCULAR: Regular rate and rhythm. No murmurs, rubs, or gallops LUNGS: Clear to auscultation bilaterally. No wheezes. No rhonchi ABDOMEN: Soft, nontender, mildly distended. Positive bowel sounds. NEUROLOGICAL: Alert and oriented times three. Cranial nerves II through XII grossly intact. Sensation grossly intact +babinski bilat EXTREMITIES: 5\5 strength bilateral upper extremities. 5\5 strength right lower extremity. 5/5 strength in left lower extremity. +bilat LE edema (improving) SKIN: no sacrum ulcers ASSESSMENT:70-year-old M with past medical history of syringomyelia who presents status post worsening weakness in setting of possible polymyalgia rheumatica flair and encephalopathy due to PNA and UTI. PLAN: 1. 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 Neuro- hx of cervicothoracic syrinx with worsening weakness in setting of possible polymyalgia rheumatic flair s/p IV solumedrol -f/u neurology and neuro-surgery, patient declining neurosurgical intervention at this time -tremor, c/u primidone 3. Cardiac- chronic diastolic CHF, daily weights, and fluid restrict, renal consulted to help with fluid status, diuretic management per renal, currently receiving torsemide and albumin -HTN c/u BP meds -recent Aflutter, off AC due to GI bleed and hematuria- on ASA 4. Resp- hx of LIANNA on CPAP, s/p course of Zosyn for possible HAP vs aspiration PNA- cleared by speech for regular diet, monitor for infection -c/u combivent and incentive spirometry 5. GI- s/p recent endoscopy +non-bleeding internal hemorrhoids, diverticulitis, and polyps removed- f/u GI outpatient -+ C diff,-resolved s/p course of difficid, d/c'd omeprazole, patient clinically stable and diarrhea improving -recent drop in Hgb probably due to GI bleed, patient reporting he was noted to have some blood with wiping, ordered preparation H suppository as patient has internal hemorrhoids which may be slowly bleeding now that he has had diarrheal infection- this has resolved, c/u to monitor HH, f/u GI on discharge, had recent in-house endoscopic work-up 6. Endo- hx fo DM c/u insulin and ISS, adjust prn 7. Psych- hx of depression c/u zoloft -atarax 10mg bid 8. DVT ppx- lovenox 9. - BPH c/u flomax, monitor for hematuria 10. Heme- iron deficiency anemia c/u iron supplements, recent blood loss due to hematuria and gi bleed- -s/p 1 unit prbc -FOBT +, patient with known hx of GI bleed and recent endoscopic work-up, hemodynamically stable 11. Dispo- 11-28-20 to home, progressing towards goals Allergies Coded Allergies: lisinopril (Verified Adverse Reaction, Intermediate, HYPOTENSION, 10/21/20) metformin (Verified Adverse Reaction, Intermediate, LOWERS KIDNEY FUNCTON, 10/21/20) finasteride (Verified Adverse Reaction, Unknown, DIZZINESS, 10/21/20) Vital Signs Vital Signs Date Time Temp Pulse Resp B/P (MAP) Pulse Ox O2 Delivery O2 Flow Rate FiO2 11/26/20 14:00 96.2 82 18 143/64 (90) 99 11/26/20 11:09 Room Air Laboratory Data Labs 24H Laboratory Tests 2 11/25/20 16:30: Bedside Glucose (Misc Panel) 164H 11/25/20 20:12: Bedside Glucose (Misc Panel) 128H 11/26/20 05:31: Bedside Glucose (Misc Panel) 95 11/26/20 11:28: Bedside Glucose (Misc Panel) 169H Microbiology Microbiology 11/19/20 Stool Occult Blood (LINDA) - Final, Complete Current Medications Current Medications Current Medications Medications (Trade) Dose Ordered Sig/Imelda Route PRN Reason Start Time Stop Time Status Last Admin Dose Admin Acetaminophen (Tylenol Tab) 650 mg Q4HP PRN PO fever/MILD PAIN (PS 1-4) 11/08/20 13:35 Albuterol/ Ipratropium (Combivent Respimat 100-20mcg) 1 puff RTID INH 11/08/20 20:00 11/26/20 12:52 Allopurinol (Zyloprim) 100 mg DAILY PO 11/09/20 09:00 11/26/20 10:07 Amlodipine Besylate (Norvasc) 5 mg BID PO 11/22/20 21:00 11/26/20 10:09 Amlodipine Besylate (Norvasc) 5 mg DAILY PO 11/14/20 09:00 11/22/20 10:33 DC 11/22/20 10:08 Amlodipine Besylate (Norvasc) 10 mg DAILY PO 11/09/20 09:00 11/13/20 19:53 DC 11/13/20 09:21 Artificial Tears (Akwa Tears) 2 drop TID OU 11/08/20 16:00 11/26/20 10:11 Aspirin (Ecotrin) 81 mg DAILY PO 11/09/20 09:00 11/26/20 10:08 Bisacodyl (Dulcolax Tab) 5 mg DAILYPRN PRN PO CONSTIPATION 11/08/20 13:35 11/10/20 16:06 DC Darbepoetin Paulo (Aranesp) 100 mcg Mondragon@09 SC 11/17/20 21:45 11/24/20 09:34 Dextrose (Dextrose 50%) 25 ml ASDIRECTED PRN IV SEE LABEL COMMENTS 11/08/20 13:35 Docusate Sodium (Colace) 100 mg BID PO 11/08/20 21:00 11/10/20 16:06 DC 11/09/20 20:43 Enoxaparin Sodium (Lovenox) 40 mg DAILY SC 11/09/20 09:00 11/26/20 10:10 Ferrous Sulfate (Ferrous Sulfate) 325 mg BID PO 11/08/20 21:00 11/26/20 10:07 Fidaxomicin (Dificid) 200 mg BID PO 11/16/20 09:00 11/26/20 08:59 DC 11/25/20 20:29 Furosemide (Lasix) 40 mg BID@09,17 PO 11/14/20 09:00 11/18/20 10:27 DC 11/18/20 08:58 Furosemide (Lasix) 40 mg DAILY PO 11/09/20 09:00 11/10/20 16:06 DC 11/10/20 07:59 Glucagon (Glucagon) 1 mg ASDIRECTED PRN SC SEE LABEL COMMENTS 11/08/20 13:35 Glucose (Glucose) 16 GM ASDIRECTED PRN PO SEE LABEL COMMENTS 11/08/20 13:35 Guaifenesin (Robitussin Tab) 400 mg BID PO 11/08/20 21:00 11/26/20 10:08 Home Med (Med Rec Complete!) ASDIRECTED XX 11/08/20 15:20 11/08/20 15:53 DC Hydroxyzine HCl (Atarax) 10 mg BID PO 11/13/20 14:00 11/26/20 10:07 Insulin Detemir (Levemir Insulin) 25 units DAILY SC 11/09/20 09:00 11/25/20 09:18 Insulin Human Lispro (HumaLOG INSULIN) SEE PROTOCOL TABLE AC SC 11/08/20 17:30 11/26/20 12:19 Insulin Human Lispro (HumaLOG INSULIN) SEE PROTOCOL TABLE QHS SC 11/08/20 21:00 11/09/20 08:44 DC Isosorbide Dinitrate (Isordil) 20 mg Q6H PO 11/08/20 18:00 11/26/20 12:20 Lactobacillus Acidophilus (Bacid) 1 ea BID PO 11/13/20 21:00 11/26/20 10:08 Lactobacillus Acidophilus (Bacid) 1 ea TID PO 11/08/20 16:00 11/13/20 13:11 DC 11/13/20 09:20 Multivitamins (Theragram-M) 1 tab DAILY PO 11/09/20 09:00 11/26/20 10:07 Nitroglycerin (Nitrostat (1/ 150)) 0.4 mg Q5MP PRN SL CHEST PAIN 11/08/20 13:35 Omeprazole (PriLOSEC) 20 mg DAILY PO 11/09/20 09:00 11/11/20 11:03 DC 11/11/20 09:39 Omeprazole (PriLOSEC) 40 mg DAILY PO 11/16/20 09:00 11/26/20 10:07 Ondansetron HCl (Zofran Odt) 4 mg Q6HP PRN PO NAUSEA OR VOMITING 11/16/20 04:00 11/16/20 12:27 Phenylephrine HCl (Preparation H Supp) 1 sup BID MD 11/19/20 21:00 11/25/20 20:30 Potassium Chloride (Micro-K Extencaps) 10 meq BID PO 11/13/20 21:00 11/26/20 10:08 Primidone (Mysoline) 25 mg BID PO 11/08/20 21:00 11/26/20 10:08 Rosuvastatin Calcium (Crestor) 20 mg QHS PO 11/08/20 21:00 11/25/20 20:28 Senna (Senokot) 1 tab QHS PO 11/08/20 21:00 11/10/20 16:06 DC 11/09/20 20:43 Sertraline HCl (Zoloft) 25 mg QAM PO 11/09/20 09:00 11/26/20 10:08 Tamsulosin HCl (Flomax) 0.4 mg QHS PO 11/08/20 21:00 11/25/20 20:29 Torsemide (Demadex) 30 mg BID@, PO 11/18/20 17:00 11/19/20 11:25 DC 11/19/20 08:50 Torsemide (Demadex) 40 mg BID@, PO 11/19/20 17:00 11/22/20 11:40 DC 11/22/20 10:05 Torsemide (Demadex) 50 mg BID@, PO 11/22/20 17:00 11/26/20 10:09 Vancomycin HCl (First-Vancomycin 50(Firvanq)- 250mg/5ml) 125 mg Q6H PO 11/10/20 18:00 11/16/20 04:01 DC 11/15/20 23:45 Vitamin D (Vitamin D) 1,000 units DAILY PO 11/09/20 09:00 11/26/20 10:08 LV HEREDIA MD November 26, 2020 14:46
[2020-11-26 20:00] VITALS: BP 107/56
[2020-11-26] MEDS ORDERED: metOLazone 2.5 MG TAB PO ONE (20:15)
[2020-11-26] MEDS: ROSUVASTATIN 10 MG TAB (CRESTOR) PO SCH (20:40)
[2020-11-26] MEDS: TAMSULOSIN 0.4 MG CAP PO SCH (20:41)
--- NOTE | 2020-11-26 21:13 | IPN ---
NEPHROLOGY PROGRESS NOTE DATE: 11/26/2020 SUBJECTIVE: Mr. Vilchis is seen and examined this morning in the Acute Rehabilitation Unit sitting in the recliner with his legs elevated. He reports his physical therapy is going well. He has been ambulating and climbing stairs and denies any dyspnea with exertion. His leg swelling persists and his legs are wrapped today. OBJECTIVE: PHYSICAL EXAMINATION: VITAL SIGNS: Temperature 97.9, pulse 78, respiratory rate 18, blood pressure 151/66, saturating 98-99% on room air. INTAKE AND OUTPUT: Intake yesterday was 920. There were six voids recorded yesterday but his weight is one kg higher today that it was yesterday. Today's weight is 101.8 kg. GENERAL APPEARANCE: The patient is seen sitting in the chair with the legs elevated, elderly male, awake, alert, oriented x3, interactive, conversational and in no distress, in good spirits. HEENT: The extraocular muscles are intact. Tongue is moist. NECK: Supple. Jugular veins were not elevated while he was sitting upright. LUNGS: Clear to auscultation bilaterally. No crackles, rales or rhonchi. He is comfortable on room air. HEART: Regular, S1, S2. There is still at least 1+ leg edema bilaterally that comes up to the knees. There are wraps on his legs and there are dressings as well. ABDOMEN: Soft and nontender. There is some mild abdominal wall edema as well. NEUROLOGICAL: He is oriented x3, no focal deficits. LABORATORY STUDIES: Today's labs show a white count of 5.6, hemoglobin 9.0, platelet count 347. Sodium 137, potassium 4.1, bicarbonate 31, BUN 26, creatinine 1.1. INPATIENT MEDICATIONS: I ordered a dose of Metolazone today, 2.5 mg p.o. times one. His Dificid was discontinued. He has completed a 10-day course. His remainder of medications are unchanged as compared to yesterday. PROBLEMS: 1. Ctsha-zx-qyastqa diastolic congestive heart failure - The patient still has mild hypervolemia including peripheral edema and some abdominal wall edema. He is on a low sodium diet with 1.8 liter fluid restriction. He is also receiving Torsemide 50 mg p.o. twice daily. And he is getting albumin to augment diuresis. I have a dose of Metolazone today 2.5 mg p.o. times one because his daily weight had no improvement today and I also note no significant change in his leg edema in the past 2 days. 2. Chronic kidney disease stage 2 - renal function is stable at his usual baseline, and laboratory studies are checked intermittently while he is being diuresed in the Acute Rehabilitation Unit. Continue Torsemide and he got a dose of Metolazone today as well. 3. Hypokalemia in the setting of diuresis - The patient is on potassium supplementation and his potassium level is in the acceptable range. 4. Anemia - The patient is on oral iron supplementation and he is receiving weekly Aranesp. His hemoglobin is stable at 9.0 and is intermittently checked. He did receive one unit packed red blood cells on this admission and is status post recent endoscopy with non-bleeding internal hemorrhoids and is following up with GI as an outpatient. 5. Hypertension - blood pressures are systolic 130's to 150 and he continues on Amlodipine, Isordil, Torsemide, and I did give a dose of Metolazone today as well.
[2020-11-27] VITALS (9 sets, daily range): BP systolic 113–184; BP diastolic 56–85
[2020-11-27] MEDS: ISOSORBIDE DIN. (ISORDIL) 20 MG TAB PO SCH ×4 (00:06→17:00)
[2020-11-27 07:14] LABS: BASO % 0.3 % (0.0-1.0); EOS # 0.1 10^3/uL (0.0-0.5); EOS % 2.7 % (0.0-3.0); HEMATOCRIT 26.6 % (42.0-52.0); HEMOGLOBIN 8.6 g/dl (13.5-17.5); LYMPH # 0.6 10^3/uL (1.5-5.0); MEAN CORPUSCULAR HEMOGLOBIN 31.2 pg (27.0-33.0); MEAN CORPUSCULAR HGB CONC 32.3 g/dl (32.0-36.5); MEAN CORPUSCULAR VOLUME 96.4 fl (80.0-96.0); MONO # 0.6 10^3/uL (0.0-0.8); MONO % 15.8 % (2.0-8.0); NEUTROPHILS # 2.4 10^3/uL (1.5-8.5); NEUTROPHILS % 65.7 % (36.0-66.0); PLATELET COUNT, AUTOMATED 327 10^3/uL (150-450); RED BLOOD COUNT 2.76 10^6/uL (4.30-6.10); WHITE BLOOD COUNT 3.7 10^3/uL (4.0-10.0)
[2020-11-27 07:31] LABS: BLOOD UREA NITROGEN 24 MG/DL (7-18); CALCIUM LEVEL 9.4 MG/DL (8.8-10.2); CARBON DIOXIDE LEVEL 36 MEQ/L (21-32); CHLORIDE LEVEL 98 MEQ/L (98-107); CREATININE FOR GFR 1.01 MG/DL (0.70-1.30); GLOMERULAR FILTRATION RATE > 60.0 (>42); GLUCOSE, FASTING 127 MG/DL (70-100); SODIUM LEVEL 138 MEQ/L (136-145)
[2020-11-27] MEDS: COMBIVENT RESPIMAT 100-20MCG INHALER 4GM INH SCH ×3 (07:31→20:39)
[2020-11-27] MEDS: LEVEMIR (INSULIN DETEMIR) 1 UNITS/0.01ML SC SCH (08:48)
[2020-11-27] MEDS: HumaLOG INSULIN (NovoLOG) PER UNIT SC SCH ×3 (08:48→17:00)
[2020-11-27] MEDS: PREPARATION H SUPP (HEMORRHOID) PR SCH ×2 (08:49→20:41)
[2020-11-27] MEDS: ENOXAPARIN 40MG/0.4ML SYRINGE (J1650 PER 10MG) SC SCH (08:49)
[2020-11-27] MEDS: allopurinoL 100 MG TAB PO SCH ×2 (08:50→09:00)
[2020-11-27] MEDS: REMEDY PHYTOPLEX Z-GUARD PASTE 113GM TUBE (FROM STOREROOM PRODUCT) TOP SCH ×3 (08:50→20:43)
[2020-11-27] MEDS: OMEPRAZOLE 20 MG CAP PO SCH (08:50)
[2020-11-27] MEDS: MULTIVITAMINS/MINERALS THERAP 1 TAB PO SCH (08:50)
[2020-11-27] MEDS: TORSEMIDE 20 MG TAB PO SCH ×2 (08:50→16:59)
[2020-11-27] MEDS: VITAMIN D 1,000 INTERNATIONAL UNITS TABLET PO SCH (08:50)
[2020-11-27] MEDS: LACTOBACILLUS ACIDOPHILUS CAP (BACID) PO SCH ×2 (08:50→20:41)
[2020-11-27] MEDS: hydrOXYzine 10 MG TAB PO SCH ×2 (08:51→20:42)
[2020-11-27] MEDS: ASPIRIN 81MG ENTERIC TABLET PO SCH (08:51)
[2020-11-27] MEDS: FERROUS SULFATE 325MG TAB PO SCH ×2 (08:51→20:41)
[2020-11-27] MEDS: guaiFENesin 200 MG TAB PO SCH ×3 (08:51→20:32)
[2020-11-27] MEDS: POTASSIUM CHLORIDE 10 MEQ SR TABLET PO SCH ×2 (08:51→20:41)
[2020-11-27] MEDS: SERTRALINE HCL 25 MG TABLET PO SCH (08:51)
[2020-11-27] MEDS: POLYVINYL ALCOHOL OPHTH SOLN 15 ML(LIQUITEARS) OU SCH ×3 (08:52→20:42)
[2020-11-27] MEDS: amLODIPine 5 MG TAB PO SCH ×2 (08:55→20:42)
[2020-11-27] MEDS: PRIMIDONE 25MG PER 1/2 TABLET PO SCH ×2 (08:56→21:50)
[2020-11-27] MEDS ORDERED: OMEP-218 PO (10:53)
[2020-11-27] MEDS ORDERED: MYSO50TA5 PO (10:53)
[2020-11-27] MEDS ORDERED: TORS20TA2 PO (10:53)
[2020-11-27] MEDS ORDERED: CRES20TA2 PO (10:53)
[2020-11-27] MEDS ORDERED: VITMTA PO (10:53)
[2020-11-27] MEDS ORDERED: RISATAB3 PO (10:53)
[2020-11-27] MEDS ORDERED: HYDR-643 PO (10:53)
[2020-11-27] MEDS ORDERED: KLOR10TA76 PO (10:53)
[2020-11-27] MEDS ORDERED: ISOS20TAB PO (10:53)
[2020-11-27] MEDS ORDERED: ALLO10TA PO (10:53)
[2020-11-27] MEDS ORDERED: VITAD1000T PO (10:53)
[2020-11-27] MEDS ORDERED: AMLO1TAB24 PO (10:53)
[2020-11-27] MEDS ORDERED: FLOM0.4C39 PO (10:53)
[2020-11-27] MEDS ORDERED: INSUDET SC (10:53)
[2020-11-27] MEDS ORDERED: ASPI-551 PO (10:53)
[2020-11-27] MEDS ORDERED: FERR1TAB8 PO (10:53)
[2020-11-27] MEDS ORDERED: SERT25TA21 PO (10:53)
--- NOTE | 2020-11-27 10:58 | IPNPDOC ---
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 Review of systems otherwise unremarkable. PAIN: Patient self reports no pain EYES: No recent vision changes EARS, NOSE, & THROAT: No throat pain, or dysphagia, or rhinorrhea CARDIOVASCULAR: Denies chest pain or palpitations PULMONARY: Denies shortness of breath GASTROINTESTINAL: +diarrhea (resolved) GENITOURINARY: +intermittent hematuria (not complaining of this while on ARU) MUSCULOSKELETAL: generalized weakness NEUROLOGICAL: denies paresthesias HEMATOLOGICAL: +anemia SKIN: denies rash PSYCHIATRIC: Unremarkable All other review of systems found to be negative. PHYSICAL EXAMINATION: VITAL SIGNS: Please see below. GENERAL: Pleasant and cooperative. No acute distress. HEENT: PERRL. Extraocular movements intact. Clear conjunctiva CARDIOVASCULAR: Regular rate and rhythm. No murmurs, rubs, or gallops LUNGS: Clear to auscultation bilaterally. No wheezes. No rhonchi ABDOMEN: Soft, nontender, mildly distended. Positive bowel sounds. NEUROLOGICAL: Alert and oriented times three. Cranial nerves II through XII grossly intact. Sensation grossly intact +babinski bilat EXTREMITIES: 5\5 strength bilateral upper extremities. 5\5 strength right lower extremity. 5/5 strength in left lower extremity. +bilat LE edema (improving) SKIN: no sacrum ulcers ASSESSMENT:70-year-old M with past medical history of syringomyelia who presents status post worsening weakness in setting of possible polymyalgia rheumatica flair and encephalopathy due to PNA and UTI. PLAN: 1. 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 Neuro- hx of cervicothoracic syrinx with worsening weakness in setting of possible polymyalgia rheumatic flair s/p IV solumedrol -f/u neurology and neuro-surgery, patient declining neurosurgical intervention at this time -tremor, c/u primidone 3. Cardiac- chronic diastolic CHF, daily weights, and fluid restrict, renal consulted to help with fluid status, diuretic management per renal, currently receiving torsemide and albumin -HTN c/u BP meds -recent Aflutter, off AC due to GI bleed and hematuria- on ASA 4. Resp- hx of LIANNA on CPAP, s/p course of Zosyn for possible HAP vs aspiration PNA- cleared by speech for regular diet, monitor for infection -c/u combivent and incentive spirometry 5. GI- s/p recent endoscopy +non-bleeding internal hemorrhoids, diverticulitis, and polyps removed- f/u GI outpatient -+ C diff,-resolved s/p course of difficid, d/c'd omeprazole, however has been resumed due to +FOBT -recent drop in Hgb probably due to GI bleed, patient reporting he was noted to have some blood with wiping, ordered preparation H suppository as patient has internal hemorrhoids which may be slowly bleeding now that he has had diarrheal infection- this has resolved, c/u to monitor HH, f/u GI on discharge, had recent in-house endoscopic work-up 6. Endo- hx fo DM c/u insulin and ISS, adjust prn 7. Psych- hx of depression c/u zoloft -atarax 10mg bid 8. DVT ppx- lovenox 9. - BPH c/u flomax, monitor for hematuria 10. Heme- iron deficiency anemia c/u iron supplements, recent blood loss due to hematuria and gi bleed- -s/p 1 unit prbc -FOBT +, patient with known hx of GI bleed and recent endoscopic work-up, hemodynamically stable 11. Dispo- 11-28-20 to home, progressing towards goals Allergies Coded Allergies: lisinopril (Verified Adverse Reaction, Intermediate, HYPOTENSION, 10/21/20) metformin (Verified Adverse Reaction, Intermediate, LOWERS KIDNEY FUNCTON, 10/21/20) finasteride (Verified Adverse Reaction, Unknown, DIZZINESS, 10/21/20) Vital Signs Vital Signs Date Time Temp Pulse Resp B/P (MAP) Pulse Ox O2 Delivery O2 Flow Rate FiO2 11/27/20 08:55 75 133/63 11/27/20 06:00 97.7 16 95 Room Air Laboratory Data CBC/BMP Laboratory Tests 11/27/20 06:37 Labs 24H Laboratory Tests 2 11/26/20 11:28: Bedside Glucose (Misc Panel) 169H 11/26/20 16:25: Bedside Glucose (Misc Panel) 152H 11/26/20 19:49: Bedside Glucose (Misc Panel) 147H 11/27/20 06:06: Bedside Glucose (Misc Panel) 122H 11/27/20 06:37: Immature Granulocyte % (Auto) 0.5, Neutrophils (%) (Auto) 65.7, Lymphocytes (%) (Auto) 15.0L, Monocytes (%) (Auto) 15.8H, Eosinophils (%) (Auto) 2.7, Basophils (%) (Auto) 0.3, Neutrophils # (Auto) 2.4, Lymphocytes # (Auto) 0.6L, Monocytes # (Auto) 0.6, Eosinophils # (Auto) 0.1, Basophils # (Auto) 0.0, Nucleated Red Blood Cells % (auto) 0.0, Anion Gap 4L, Glomerular Filtration Rate > 60.0, Calcium Level 9.4 Microbiology Microbiology 11/19/20 Stool Occult Blood (LINDA) - Final, Complete Current Medications Current Medications Current Medications Medications (Trade) Dose Ordered Sig/Imelda Route PRN Reason Start Time Stop Time Status Last Admin Dose Admin Acetaminophen (Tylenol Tab) 650 mg Q4HP PRN PO fever/MILD PAIN (PS 1-4) 11/08/20 13:35 Albuterol/ Ipratropium (Combivent Respimat 100-20mcg) 1 puff RTID INH 11/08/20 20:00 11/27/20 07:31 Allopurinol (Zyloprim) 100 mg DAILY PO 11/09/20 09:00 11/26/20 10:07 Amlodipine Besylate (Norvasc) 5 mg BID PO 11/22/20 21:00 11/27/20 08:55 Amlodipine Besylate (Norvasc) 5 mg DAILY PO 11/14/20 09:00 11/22/20 10:33 DC 11/22/20 10:08 Amlodipine Besylate (Norvasc) 10 mg DAILY PO 11/09/20 09:00 11/13/20 19:53 DC 11/13/20 09:21 Artificial Tears (Akwa Tears) 2 drop TID OU 11/08/20 16:00 11/27/20 08:52 Aspirin (Ecotrin) 81 mg DAILY PO 11/09/20 09:00 11/27/20 08:51 Bisacodyl (Dulcolax Tab) 5 mg DAILYPRN PRN PO CONSTIPATION 11/08/20 13:35 11/10/20 16:06 DC Darbepoetin Paulo (Aranesp) 100 mcg Mondragon@09 SC 11/17/20 21:45 11/24/20 09:34 Dextrose (Dextrose 50%) 25 ml ASDIRECTED PRN IV SEE LABEL COMMENTS 11/08/20 13:35 Docusate Sodium (Colace) 100 mg BID PO 11/08/20 21:00 11/10/20 16:06 DC 11/09/20 20:43 Enoxaparin Sodium (Lovenox) 40 mg DAILY SC 11/09/20 09:00 11/27/20 08:49 Ferrous Sulfate (Ferrous Sulfate) 325 mg BID PO 11/08/20 21:00 11/27/20 08:51 Fidaxomicin (Dificid) 200 mg BID PO 11/16/20 09:00 11/26/20 08:59 DC 11/25/20 20:29 Furosemide (Lasix) 40 mg BID@,17 PO 11/14/20 09:00 11/18/20 10:27 DC 11/18/20 08:58 Furosemide (Lasix) 40 mg DAILY PO 11/09/20 09:00 11/10/20 16:06 DC 11/10/20 07:59 Glucagon (Glucagon) 1 mg ASDIRECTED PRN SC SEE LABEL COMMENTS 11/08/20 13:35 Glucose (Glucose) 16 GM ASDIRECTED PRN PO SEE LABEL COMMENTS 11/08/20 13:35 Guaifenesin (Robitussin Tab) 400 mg BID PO 11/08/20 21:00 11/26/20 20:42 Home Med (Med Rec Complete!) ASDIRECTED XX 11/08/20 15:20 11/08/20 15:53 DC Hydroxyzine HCl (Atarax) 10 mg BID PO 11/13/20 14:00 11/27/20 08:51 Insulin Detemir (Levemir Insulin) 25 units DAILY SC 11/09/20 09:00 11/27/20 08:48 Insulin Human Lispro (HumaLOG INSULIN) SEE PROTOCOL TABLE AC SC 11/08/20 17:30 11/27/20 08:48 Insulin Human Lispro (HumaLOG INSULIN) SEE PROTOCOL TABLE QHS SC 11/08/20 21:00 11/09/20 08:44 DC Isosorbide Dinitrate (Isordil) 20 mg Q6H PO 11/08/20 18:00 11/27/20 05:22 Lactobacillus Acidophilus (Bacid) 1 ea BID PO 11/13/20 21:00 11/27/20 08:50 Lactobacillus Acidophilus (Bacid) 1 ea TID PO 11/08/20 16:00 11/13/20 13:11 DC 11/13/20 09:20 Multivitamins (Theragram-M) 1 tab DAILY PO 11/09/20 09:00 11/27/20 08:50 Nitroglycerin (Nitrostat (1/ 150)) 0.4 mg Q5MP PRN SL CHEST PAIN 11/08/20 13:35 Omeprazole (PriLOSEC) 20 mg DAILY PO 11/09/20 09:00 11/11/20 11:03 DC 11/11/20 09:39 Omeprazole (PriLOSEC) 40 mg DAILY PO 11/16/20 09:00 11/27/20 08:50 Ondansetron HCl (Zofran Odt) 4 mg Q6HP PRN PO NAUSEA OR VOMITING 11/16/20 04:00 11/16/20 12:27 Phenylephrine HCl (Preparation H Supp) 1 sup BID RI 11/19/20 21:00 11/26/20 20:44 Potassium Chloride (Micro-K Extencaps) 10 meq BID PO 11/13/20 21:00 11/27/20 08:51 Primidone (Mysoline) 25 mg BID PO 11/08/20 21:00 11/27/20 08:56 Rosuvastatin Calcium (Crestor) 20 mg QHS PO 11/08/20 21:00 11/26/20 20:40 Senna (Senokot) 1 tab QHS PO 11/08/20 21:00 11/10/20 16:06 DC 11/09/20 20:43 Sertraline HCl (Zoloft) 25 mg QAM PO 11/09/20 09:00 11/27/20 08:51 Tamsulosin HCl (Flomax) 0.4 mg QHS PO 11/08/20 21:00 11/26/20 20:41 Torsemide (Demadex) 30 mg BID@ PO 11/18/20 17:00 11/19/20 11:25 DC 11/19/20 08:50 Torsemide (Demadex) 40 mg BID@ PO 11/19/20 17:00 11/22/20 11:40 DC 11/22/20 10:05 Torsemide (Demadex) 50 mg BID@, PO 11/22/20 17:00 11/27/20 08:50 Vancomycin HCl (First-Vancomycin 50(Firvanq)- 250mg/5ml) 125 mg Q6H PO 11/10/20 18:00 11/16/20 04:01 DC 11/15/20 23:45 Vitamin D (Vitamin D) 1,000 units DAILY PO 11/09/20 09:00 11/27/20 08:50 LV HEREDIA MD November 27, 2020 10:57
[2020-11-27] MEDS ORDERED: metOLazone 2.5 MG TAB PO ONE (15:25)
--- NOTE | 2020-11-27 19:21 | IPN ---
NEPHROLOGY PROGRESS NOTE DATE: 11/27/2020 SUBJECTIVE: Mr. Vilchis is seen and examined this morning at the bedside in the rehabilitation unit. He is in a great mood. He is looking forward to going home tomorrow. He denies any complaints. He was given a dose of metolazone yesterday evening with excellent effect. His weight is down 1.8 kilograms since yesterday and his renal function remains stable at usual baseline with creatinine of 1. I note his hemoglobin has slowly been downtrending. I discussed with patient regarding blood transfusion and he agrees. PHYSICAL EXAMINATION: Temperature 97.5, pulse 78, respiratory rate 18, blood pressure 128/60, saturation 99% on room air. INTAKE AND OUTPUT: Intake yesterday was 630. Urine output was recorded as 7 voids. Weight in the bed scale is today is 100 kg, which is the lowest it has been since admission. GENERAL: Patient seen today sitting in the chair, awake, alert, oriented, comfortable, interactive, conversational, no distress. HEENT: Extraocular muscles are intact. Tongue is moist. Jugular veins are not elevated while he is sitting upright. HEART SOUNDS: Regular. S1, S2. There is now trace to 1+ edema to the legs that is distal to the knees. There are no wraps on his legs today. There are some dressings. LUNGS: Symmetric air movement. No crackles or rales. He is comfortable on room air. ABDOMEN: Soft and nontender. He no longer has abdominal wall edema. NEUROLOGIC: He is oriented times three, interactive, conversational, at baseline mentation. LABORATORY STUDIES: Today's labs show hemoglobin 8.6, platelets 327, white count 3.7. Sodium 138, potassium 4.0, bicarbonate 36, BUN 24, creatinine 1.0. INPATIENT MEDICATIONS: I gave him a dose of metolazone 2.5 mg by mouth times one yesterday and he is going to get another dose of metolazone 2.5 mg by mouth times one after getting a blood transfusion this evening. His remainder of medications are unchanged as compared to prior days. PROBLEMS: 1. Acute on chronic diastolic congestive heart failure. The patient's volume status has nicely improved the past several days. His weights have been downtrending. Specifically, his weight went down 1.8 kilograms in the past 24 hours. He is on a low sodium diet with 1.8 liter fluid restriction and is on torsemide 50 mg by mouth twice a day. I gave a dose of metolazone yesterday and I gave another dose of metolazone this evening. His leg edema is very mild now. 2. Chronic kidney disease (CKD) stage II. Renal function is stable at his usual baseline and laboratory studies are checked intermittently while he is being diuresed in the acute rehabilitation unit. Continue torsemide. 3. Hypokalemia in the setting of diuresis. His potassium level is acceptable on the current supplementation that he is getting. 4. Anemia. He is on oral iron supplementation. He is receiving weekly Aranesp. He did have 1 unit of packed red blood cells earlier on this admission and is status post endoscopy with nonbleeding internal hemorrhoids and is due to follow up with gastroenterology (GI) as an outpatient. Hemoglobin has drifted down again to 8.6 on the labs today and patient is agreeable to 1 unit packed red blood cells transfusion tonight prior to discharge tomorrow. 5. Hypertension. Blood pressures are all acceptable and no changes are being made to current regimen of amlodipine, Isordil and torsemide. DISPOSITION: Patient is going to get 1 unit of blood today along with another dose of metolazone this evening. Tomorrow he can be discharged on torsemide 50 mg by mouth twice a day along with potassium 10 mEq twice a day and he will need to follow up with the nephrology office within one week.
[2020-11-27] MEDS: ROSUVASTATIN 10 MG TAB (CRESTOR) PO SCH (20:42)
[2020-11-27] MEDS: TAMSULOSIN 0.4 MG CAP PO SCH (20:42)
[2020-11-28] MEDS: ISOSORBIDE DIN. (ISORDIL) 20 MG TAB PO SCH ×3 (00:03→12:04)
[2020-11-28 05:15] VITALS: BP 133/63
[2020-11-28] MEDS: COMBIVENT RESPIMAT 100-20MCG INHALER 4GM INH SCH (07:55)
[2020-11-28] MEDS: allopurinoL 100 MG TAB PO SCH (09:00)
[2020-11-28] MEDS: guaiFENesin 200 MG TAB PO SCH (09:00)
[2020-11-28] MEDS: PREPARATION H SUPP (HEMORRHOID) PR SCH (09:00)
[2020-11-28] MEDS: LEVEMIR (INSULIN DETEMIR) 1 UNITS/0.01ML SC SCH (09:45)
[2020-11-28] MEDS: HumaLOG INSULIN (NovoLOG) PER UNIT SC SCH ×2 (09:45→12:03)
[2020-11-28] MEDS: ENOXAPARIN 40MG/0.4ML SYRINGE (J1650 PER 10MG) SC SCH (09:46)
[2020-11-28] MEDS: POLYVINYL ALCOHOL OPHTH SOLN 15 ML(LIQUITEARS) OU SCH (09:47)
[2020-11-28] MEDS: hydrOXYzine 10 MG TAB PO SCH (09:47)
[2020-11-28] MEDS: ASPIRIN 81MG ENTERIC TABLET PO SCH (09:47)
[2020-11-28] MEDS: OMEPRAZOLE 20 MG CAP PO SCH (09:48)
[2020-11-28] MEDS: MULTIVITAMINS/MINERALS THERAP 1 TAB PO SCH (09:48)
[2020-11-28] MEDS: VITAMIN D 1,000 INTERNATIONAL UNITS TABLET PO SCH (09:48)
[2020-11-28] MEDS: LACTOBACILLUS ACIDOPHILUS CAP (BACID) PO SCH (09:48)
[2020-11-28] MEDS: SERTRALINE HCL 25 MG TABLET PO SCH (09:48)
[2020-11-28] MEDS: FERROUS SULFATE 325MG TAB PO SCH (09:48)
[2020-11-28] MEDS: POTASSIUM CHLORIDE 10 MEQ SR TABLET PO SCH (09:48)
[2020-11-28] MEDS: TORSEMIDE 20 MG TAB PO SCH (09:49)
[2020-11-28] MEDS: PRIMIDONE 25MG PER 1/2 TABLET PO SCH (09:49)
[2020-11-28] MEDS: REMEDY PHYTOPLEX Z-GUARD PASTE 113GM TUBE (FROM STOREROOM PRODUCT) TOP SCH (09:50)
[2020-11-28] MEDS: amLODIPine 5 MG TAB PO SCH (09:51)
--- NOTE | 2020-11-28 10:43 | PMRDS ---
NAME: ELLY [facility]SON [facility] WT ID#: [id number] JOB: [id number] LINDA: 11/28/2020 ACCT: [id number] DOCTOR: LV HEREDIA MD PMR DISCHARGE SUMMARY DATE OF ADMISSION: 11/08/2020 DATE OF DISCHARGE: 11/28/2020 CHIEF COMPLAINT/DISCHARGE DIAGNOSIS: Syringomyelia. HISTORY OF PRESENT ILLNESS: A 70-year-old male with a past medical history of cervical, thoracic syringomyelia; status post shunt in 1982, Chiari I malformation, diabetes with peripheral polyneuropathy, CHF, depression, BPH, GERD, LIANNA, hypertension, recent stay on ARU where he was discharged at an ambulatory level, and presented to the [facility] ED on 10/26/2020 complaining of decreased ability to walk and worsening right-sided weakness. MRI was done of the cervical, thoracic, lumbar region showing extensive syringomyelia without any change from the September 2020 images. Brain MRI was negative for stroke. He was seen by neurology, who recommended I.V. Solu-Medrol for possible polymyalgia rheumatic flare, was aggressively diuresed for his fluid overloaded status, developed atrial flutter with hematuria requiring blood transfusions and ultimately Lovenox was discontinued. He also had blood loss due to GI bleed with in-house endoscopy revealing non-bleeding internal hemorrhoids, diverticulitis, multiple polyps. He was encephalopathic and started on antibiotics for pneumonia and UTI, followed closely by ID and eventually taken off antibiotics. His mobility began to improve, but was still far below his baseline for ambulation and ADLs and he was deemed medically appropriate for discharge to ARU. PAST MEDICAL HISTORY: As per HPI. HOSPITAL COURSE: Patient was admitted and enrolled in a comprehensive PT/OT program. He received 24-hour nursing supervision and weekly team meetings were held to discuss his progress. Patient continued to be diuresed and was followed closely by renal, who also addressed his anemia of chronic disease. He received I.V. Venofer and albumin. Patient was diagnosed with C. diff during his hospital course, for which he was treated with vancomycin and then transitioned to Dificid. He had a positive FOBT, thought to be due to internal hemorrhoids, and was given Preparation-H. Eventually his Omeprazole was reinstituted. Patient's blood count, red blood cell, hemoglobin and hematocrit remained relatively stable during his hospital course. He was hemodynamically stable. He made steady gains in therapy and was deemed medically and functionally stable to return home. DISCHARGE MEDICATIONS: As per instructions. FUNCTIONAL HISTORY: On discharge, patient was modified independent for ambulation, functional transfers and stairs. Thank you for this referral.
[2020-11-28 12:04] VITALS: BP 184/83
== END 2020-11-28 13:55 | disposition home health service (06) | DRG 56 ==
LOC: M PM&R 14:45
PROVIDERS: ADMIT Physical Medicine & Rehabilitation; ATTEND Physical Medicine & Rehabilitation
PROC: 30233N1 Transfusion of Nonautologous Red Blood Cells into Peripheral Vein, Percutaneous Approach (ICD-10-PCS; principal; 2020-11-19)
DX: G95.0 Syringomyelia and syringobulbia (principal); I50.33 Acute on chronic diastolic (congestive) heart failure; N02.9 Recurrent and persistent hematuria with unspecified morphologic changes; E87.1 Hypo-osmolality and hyponatremia; A04.72 Enterocolitis due to Clostridium difficile, not specified as recurrent; E11.42 Type 2 diabetes mellitus with diabetic polyneuropathy; F32.9 Major depressive disorder, single episode, unspecified; N40.0 Benign prostatic hyperplasia without lower urinary tract symptoms; K21.9 Gastro-esophageal reflux disease without esophagitis; G47.33 Obstructive sleep apnea (adult) (pediatric); I11.0 Hypertensive heart disease with heart failure; Z74.09 Other reduced mobility; Z74.1 Need for assistance with personal care; M35.3 Polymyalgia rheumatica; R53.1 Weakness; D50.9 Iron deficiency anemia, unspecified; Z87.891 Personal history of nicotine dependence; Z86.010 Personal history of colon polyps; K64.8 Other hemorrhoids; Z79.82 Long term (current) use of aspirin; Z79.4 Long term (current) use of insulin; Z79.899 Other long term (current) drug therapy; Z88.8 Allergy status to other drugs, medicaments and biological substances; K44.9 Diaphragmatic hernia without obstruction or gangrene; K57.30 Diverticulosis of large intestine without perforation or abscess without bleeding; E87.6 Hypokalemia; D63.1 Anemia in chronic kidney disease